=== PATIENT | female | born 1980 | race Caucasian/White ===

== ENCOUNTER 2016-12-31 18:05 | Emergency (ER) | payer MEDICAID ==
[~2016-12-31] VITALS: Ht 152.4 cm; Wt 72.5 kg
[2016-12-31 18:09] VITALS: Ht 152.4 cm; Wt 72.5 kg
[2016-12-31] MEDS ORDERED: ONDANSETRON 4 MG INJ IV STA (19:38)
[2016-12-31] MEDS ORDERED: morphine 4 MG/ML VIAL IV STA (19:38)
[2016-12-31] MEDS ORDERED: SOD CHLORIDE 0.9% 1,000 ML IV ONE (20:00)
[2016-12-31 20:04] LABS: ADD SCAN DIFF NO
[2016-12-31 20:07] LABS: BASOPHIL # 0.1 10^3/ul (0.0-0.1); EOSINOPHILS # 0.2 10^3/ul (0.0-0.5); EOSINOPHILS % 1.6 % (0.0-7.0); HEMATOCRIT 30.9 % (37.0-47.0); HEMOGLOBIN 9.4 g/dl (12.0-16.0); LYMPHOCYTES # 3.9 10^3/ul (0.8-2.9); LYMPHOCYTES % 31.2 % (15.0-51.0); MEAN CORPUSCULAR HGB CONC 30.4 g/dl (32.0-37.0); MEAN PLATELET VOLUME 11.7 fl (7.4-10.4); MONOCYTE # 0.8 10^3/ul (0.3-0.9); MONOCYTES % 6.2 % (0.0-11.0); NEUTROPHIL # 7.4 10^3/ul (1.6-7.5); NEUTROPHILS % 59.6 % (39.0-77.0); PLATELET COUNT 488 10^3/UL (140-415); RED BLOOD COUNT 4.48 10^6/ul (4.20-5.40); WHITE BLOOD COUNT 12.5 10^3/ul (4.8-10.8)
[2016-12-31 20:22] LABS: ADD UMIC YES; URINE BILIRUBIN (Dip) NEGATIVE (NEGATIVE); URINE BLOOD (Dip) 1+ (NEGATIVE); URINE COLOR LT. YELLOW (YELLOW); URINE GLUCOSE (Dip) NEGATIVE (NEGATIVE); URINE KETONES (Dip) NEGATIVE (NEGATIVE); URINE LEUKOCYTE ESTERASE (Dip) NEGATIVE (NEGATIVE); URINE NITRITE (Dip) NEGATIVE (NEGATIVE); URINE TOTAL PROTEIN (Dip) NEGATIVE (NEGATIVE); URINE UROBILINOGEN (Dip) 0.2 E.U./dL (0.1-1.0)
[2016-12-31 20:24] LABS: ALANINE AMINOTRANSFERASE 49 IU/L (13-69); ALBUMIN 4.5 g/dl (3.3-4.9); ALBUMIN/GLOBULIN RATIO 0.97; ALKALINE PHOSPHATASE 134 IU/L (42-121); ANION GAP 15 (8-16); ASPARTATE AMINO TRANSFERASE 57 IU/L (15-46); BILIRUBIN,INDIRECT 0.1 mg/dl (0-1.1); BILIRUBIN,TOTAL 0.1 mg/dl (0.2-1.3); BLOOD UREA NITROGEN 11 mg/dl (7-20); CALCIUM 9.5 mg/dl (8.4-10.2); CARBON DIOXIDE 25 mmol/L (21-31); CHLORIDE 104 mmol/L (97-110); CREATININE 0.65 mg/dl (0.44-1.00); GLUCOSE 144 mg/dl (70-220); POTASSIUM 3.9 mmol/L (3.5-5.1); SODIUM 140 mmol/L (135-144); TOTAL PROTEIN 9.1 g/dl (6.1-8.1)
[2016-12-31 20:33] LABS: SQUAMOUS EPITHELIAL CELL,UR FEW; URINE RBCS 0-2 /HPF (0)
[2016-12-31 20:36] LABS: TROPONIN-I < 0.012 ng/ml (0.00-0.12)
--- NOTE | 2016-12-31 21:19 | RADRPT ---
PROCEDURE: CT Abdomen and Pelvis without contrast. CLINICAL INDICATION: Abdominal pelvic pain. Low back pain. RLQ pain. TECHNIQUE: CT scan of the abdomen and pelvis without contrast was performed on a multidetector hig h-resolution CT scanner. The patient was scanned without intravenous contrast. Coronal and sagittal reformatted images were obtained from the axial source images. Images were reviewed on a high-resol [employer] PACS workstation. The total exam CTDI equals 13.04 mGy and the total exam DLP equals 770.35 mG y-cm. One or more of the following dose reduction techniques were used: - Automated exposure control. - Adjustment of the mA and/or kV according to patient size. - Use of iterative reconstruction technique. COMPARISON: None. FINDINGS: CT abdomen: The lung bases are remarkable for dense subsegmental atelectasis within the posterior lung bases emir aterally. The heart size is normal, without pericardial thickening or effusion. The liver is juan l in size and density without focal mass or intrahepatic biliary dilatation. The spleen is normal i n size and homogeneous in density. The stomach is significantly distended and filled with food and ingested material, but is otherwise grossly unremarkable. The pancreas as visualized is normal. Th e gallbladder and biliary tree are unremarkable and there is no evidence for biliary dilatation. Th e adrenal glands are symmetric and normal. The kidneys are symmetrically unremarkable as well. No renal calculus or obstructive uropathy or mass lesion is seen. The aorta is of normal caliber. There is no retroperitoneal lymphadenopathy. The caridad hepatis reg ion is clear. The bowel and mesentery, as visualized, are equally unremarkable. CT pelvis: The small bowel loops situated within the pelvis are unremarkable. No acute inflammatory process is seen in the right lower quadrant region or the right flank region. The pelvic organs are normal. T he pelvic sidewalls and inguinal regions are clear. The sigmoid colon and rectum are unremarkable. No mass or adenopathy is seen. No free fluid is present. No acute inflammation is identified at thi s time. The surrounding osseous structures are unremarkable. No osteolytic or osteoblastic lesion is detect ed. IMPRESSION: 1. Unremarkable CT scan of the abdomen and pelvis. 2. No mass, lymphadenopathy, or focal acute inflammatory process. 3. Dense subsegmental atelectasis within the lung bases bilaterally. 4. Distended stomach filled with food and ingested material. RPTAT: HMJB .Abrahan Friedman MD, MD Date Time Electronically viewed and signed by .Abrahan Friedman MD, MD on 12/31/2016 21:18 .B/
[2016-12-31] MEDS ORDERED: DICLOFENAC SODIUM 37.5 MG/ML VIAL IV STA (21:28)
[2016-12-31 22:17] VITALS: BP 110/56; PULSE 75; RESP 19
[2016-12-31] MEDS ORDERED: HYDR-906 PO (22:57)
[2016-12-31] MEDS ORDERED: NAPR-688 PO (22:57)
[2016-12-31] MEDS ORDERED: METH500T PO (22:57)
[2016-12-31] MEDS ORDERED: ONDA4TAB11 PO (23:01)
--- NOTE | 2016-12-31 23:10 | ERD ---
ER Documentation Chief Complaint Date/Time DATE: 12/31/16 TIME: 23:03 Chief Complaint MID BACK PAIN SINCE TODAY HPI This 36-year-old female presents emergency room with lumbar back pain is been on and off for several years but experiencing an exacerbation today. She denies any dysuria or fevers or chills . He demonstrates the pain wrapping around her lumbar back all the way to her right lower abdomen. She states that she has not taken anything at home for the pain, even though the pain is so bad that she sometimes passes out from gets nausea. She was told when she was in [facility] that she has a bone marrow problem causing anemia. She has been taking iron pills. She denies chest pain or shortness of breath. ROS All systems reviewed and are negative except as per history of present illness. Medications Home Meds Active Scripts Ondansetron (Zofran Odt) 4 Mg Tab.rapdis, 4 MG PO Q6, #10 Prov:SCOTT TREADEWLL DO 12/31/16 Hydrocodone/Acetaminophen ([place] 5-325 Tablet) 1 Each Tablet, 1 EACH PO Q6, #14 TAB Prov:SCOTT TREADWELL DO 12/31/16 Naproxen* (Naproxen*) 500 Mg Tablet, 500 MG PO BID Y for PAIN, #20 TAB Prov:SCOTT TREADWELL DO 12/31/16 Methocarbamol* (Robaxin*) 500 Mg Tab, 500 MG PO Q8 for PAIN, #20 TAB Prov:SCOTT TREADWELL DO 12/31/16 Allergies Allergies: Coded Allergies: No Known Allergy (Unverified , 12/31/16) PMhx/Soc Medical and Surgical Hx: pt denies Medical Hx Hx Alcohol Use: Yes Hx Substance Use: No Hx Tobacco Use: No Smoking Status: Never smoker Physical Exam Vitals Vital Signs Date Time Temp Pulse Resp B/P Pulse Ox O2 Delivery O2 Flow Rate FiO2 12/31/16 22:17 75 19 110/56 97 Nasal Cannula 3.0 12/31/16 20:27 82 18 119/62 99 Nasal Cannula 3.0 12/31/16 18:09 98.5 102 22 158/86 99 Physical Exam Const: [] No acute distress, laying calmly in bed Head: Atraumatic Eyes: Normal Conjunctiva ENT: Normal External Ears, Nose and Mouth. Neck: Full range of motion..~ No meningismus. Resp: Clear to auscultation bilaterally Cardio: Regular rate and rhythm, no murmurs Abd: Soft, unable to elicit abdominal tenderness, non distended. Normal bowel sounds Skin: No petechiae or rashes Back: No midline or flank tenderness Ext: No cyanosis, or edema Neur: Awake and alert Psych: Normal Mood and Affect Result Diagram: 12/31/16195412/31/161954 Results 24 hrs Laboratory Tests Test 12/31/16 19:55 12/31/16 20:05 White Blood Count 12.510^3/ul Red Blood Count 4.4810^6/ul Hemoglobin 9.4g/dl Hematocrit 30.9% Mean Corpuscular Volume 69.0fl Mean Corpuscular Hemoglobin 21.0pg Mean Corpuscular Hemoglobin Concent 30.4g/dl Red Cell Distribution Width 16.0% Platelet Count 38486^3/UL Mean Platelet Volume 11.7fl Neutrophils % 59.6% Lymphocytes % 31.2% Monocytes % 6.2% Eosinophils % 1.6% Basophils % 1.0% Nucleated Red Blood Cells % 0.0/100WBC Neutrophils # 7.410^3/ul Lymphocytes # 3.910^3/ul Monocytes # 0.810^3/ul Eosinophils # 0.210^3/ul Basophils # 0.110^3/ul Nucleated Red Blood Cells # 0.010^3/ul Sodium Level 140mmol/L Potassium Level 3.9mmol/L Chloride Level 104mmol/L Carbon Dioxide Level 25mmol/L Anion Gap 15 Blood Urea Nitrogen 11mg/dl Creatinine 0.65mg/dl Glucose Level 144mg/dl Calcium Level 9.5mg/dl Total Bilirubin 0.1mg/dl Direct Bilirubin 0.00mg/dl Indirect Bilirubin 0.1mg/dl Aspartate Amino Transf (AST/SGOT) 57IU/L Alanine Aminotransferase (ALT/SGPT) 49IU/L Alkaline Phosphatase 134IU/L Troponin I < 0.012ng/ml Total Protein 9.1g/dl Albumin 4.5g/dl Globulin 4.60g/dl Albumin/Globulin Ratio 0.97 Lipase 235U/L Urine Color LT. YELLOW Urine Clarity CLEAR Urine pH 6.5 Urine Specific [place] 1.010 Urine Ketones NEGATIVE Urine Nitrite NEGATIVE Urine Bilirubin NEGATIVE Urine Urobilinogen 0.2 E.U./dL Urine Leukocyte Esterase NEGATIVE Urine Microscopic RBC 0-2/HPF Urine Microscopic WBC 0-2/HPF Urine Squamous Epithelial Cells FEW Urine Hemoglobin 1+ Urine Glucose NEGATIVE% Urine Total Protein NEGATIVE Current Medications Medications (Trade) Dose Ordered Sig/Morteza Route PRN Reason Start Time Stop Time Status Last Admin Dose Admin Ondansetron HCl 4 mg 4 mg ONCE STAT IV 12/31/16 19:38 12/31/16 19:40 DC 12/31/16 20:13 Sodium Chloride (NS) 1,000 ml @ 1,000 mls/hr Q1H ONCE IV 12/31/16 20:00 12/31/16 20:59 DC 12/31/16 20:13 Morphine Sulfate (morphine) 4 mg ONCE STAT IV 12/31/16 19:38 12/31/16 19:40 DC 12/31/16 20:13 Diclofenac Sodium (Dyloject) 37.5 mg ONCE STAT IV 12/31/16 21:28 12/31/16 21:30 DC 12/31/16 21:38 Procedures/MDM Acute on chronic lumbar back pain with muscle spasm. Patient has no signs of urinary tract infection or renal dysfunction. Does have a mildly elevated white blood cell count increased platelets with no obvious source of infection and thorough workup. Cardiac workup was also performed because of reports of syncope from increased pain. It is the patient has not tried to take anything for pain at home however the morphine that she was given in the emergency room in addition to the IV diclofenac did relieve her pain significantly and she was able to move without pain. She is also given IV fluid. CT shows no impingement of her nerve roots in her spine. I have low suspicion for spinal abscess currently as the patient has no fevers chills and no current CT evidence. She also does have iron deficiency anemia that she had stated. Given her primary care follow-up in the next 2-3 days as well as instructions to see in orthospine for her chronic back pain. Also instructed to return the emergency room if pain cannot be controlled at home with the medications I am giving her. I am discharging with Zofran, [place], naproxen, Robaxin. EKG interpretation: Normal sinus rhythm rate of 94, left axis deviation, no ST or T-wave changes concerning for acute ischemia CT abdomen pelvis interpretation: No acute process. Distended stomach without evidence of constipation obstruction or free air, no abnormalities of the spine visualized. No obvious stenosis. No abnormal fat stranding to indicate infection peer Departure Diagnosis: Primary Impression: Lumbar muscle pain Additional Impressions: Chronic back pain Abdominal pain Condition: Stable Patient Instructions: Abdominal Pain, Unknown Cause, (Female), Back Spasm, No Trauma Referrals: [facility] YOU HAVE RECEIVED A MEDICAL SCREENING EXAM AND THE RESULTS INDICATE THAT YOU DO NOT HAVE A CONDITION THAT REQUIRES URGENT TREATMENT IN THE EMERGENCY DEPARTMENT. FURTHER EVALUATION AND TREATMENT OF YOUR CONDITION CAN WAIT UNTIL YOU ARE SEEN IN YOUR DOCTORS OFFICE WITHIN THE NEXT 1-2 DAYS. IT IS YOUR RESPONSIBILITY TO MAKE AN APPOINTMENT FOR FOLOW-UP CARE. IF YOU HAVE A PRIMARY DOCTOR --you should call your primary doctor and schedule an appointment IF YOU DO NOT HAVE A PRIMARY DOCTOR YOU CAN CALL OUR PHYSICIAN REFERRAL HOTLINE AT IF YOU CAN NOT AFFORD TO SEE A PHYSICIAN YOU CAN CHOSE FROM THE FOLLOWING [facility] [address] [facility] [address] [facility] [place] [address] [facility] [address] [facility] [address] [facility] [facility]. [address] Additional Instructions: Llame al doctor MAANA y jess gisselle RASHAAD PARA DENTRO DE 1-2 WELCH.Dgale a la secretaria que nosotros le instruimos hacer esta rashaad. Consigue un referral para un doctor de ORTHO SPINE. Avise o llame si loza condicin se empeora antes de la rashaad. Regresa aqui si peor o no mejor. SCOTT TREADWELL DO December 31, 2016 23:10
== END 2016-12-31 23:27 | disposition home or self-care (01) ==
LOC: E/R 18:05
DX: M54.5 Low back pain (principal); R10.9 Unspecified abdominal pain; R11.0 Nausea
CPT/HCPCS: 36415; 74176; 80053; 81001; 83690; 84484; 85025; 93005; 96374; 96375; J2270; J2405; J7030; Z7502; Z7610; 81003

== ENCOUNTER 2017-03-01 10:51 | Emergency (ER) | payer MEDICAID ==
[~2017-03-01] VITALS: Ht 149.9 cm; Wt 72.5 kg
[~2017-03-01 10:51] MED LIST: HYDR-906 PO; METH500T PO; NAPR-688 PO; ONDA4TAB11 PO
[2017-03-01 10:58] VITALS: Ht 149.9 cm; Wt 72.5 kg
[2017-03-01] MEDS ORDERED: KETOROLAC 30 MG INJ IV STA (11:13)
[2017-03-01] MEDS ORDERED: ONDANSETRON 4 MG INJ IV STA (11:13)
[2017-03-01 11:48] LABS: ADD SCAN DIFF NO
[2017-03-01 11:55] LABS: ADD UMIC YES; UR ASCORBIC ACID NEGATIVE (NEGATIVE); UR BILIRUBIN (Dip) NEGATIVE (NEGATIVE); UR BLOOD (Dip) 1+ mg/dL (NEGATIVE); UR CLARITY SLIGHTLY CLOUDY (CLEAR); UR COLOR YELLOW (YELLOW); UR GLUCOSE (Dip) NEGATIVE (NEGATIVE); UR KETONES (Dip) NEGATIVE (NEGATIVE); UR LEUKOCYTE ESTERASE (Dip) 2+ Leu/ul (NEGATIVE); UR NITRITE (Dip) NEGATIVE (NEGATIVE); UR RBC 2 /HPF (0-5); UR SPECIFIC GRAVITY (Dip) 1.016 (1.003-1.030); UR SQUAMOUS EPITHELIAL CELL FEW /HPF (FEW); UR TOTAL PROTEIN (Dip) NEGATIVE (NEGATIVE); UR UROBILINOGEN (Dip) NEGATIVE (NEGATIVE)
[2017-03-01 12:06] LABS: ALBUMIN 4.6 g/dl (3.3-4.9); ALBUMIN/GLOBULIN RATIO 1.31; BILIRUBIN,INDIRECT 0.1 mg/dl (0-1.1); BILIRUBIN,TOTAL 0.1 mg/dl (0.2-1.3); CREATININE 0.65 mg/dl (0.44-1.00); POTASSIUM 4.2 mmol/L (3.5-5.1); TOTAL PROTEIN 8.1 g/dl (6.1-8.1)
--- NOTE | 2017-03-01 12:17 | RADRPT ---
PROCEDURE: US Abdomen (right upper quadrant). CLINICAL INDICATION: Right upper quadrant abdomen pain. TECHNIQUE: Multiple real-time longitudinal and transverse images of the right upper quadrant of th e abdomen were acquired utilizing a curved array transducer. Images were reviewed on a high-[employer]oluti on PACS workstation. COMPARISON: None FINDINGS: The liver is normal in size and normal in echogenicity. There is no focal hepatic lesion. Color Doppler and pulsed Doppler sonography demonstrate normal a ntegrade flow in the portal vein. The gallbladder is normal with no stones or wall thickening. There is no pericholecystic fluid mireille ection. The bile ducts are normal with the common bile duct measuring 2.6 mm in diameter. The visualized portions of the pancreas are unremarkable with obscuration of the tail of the pancrea s. No free fluid is present. The right kidney measures 10.6 x 5.7 x 6.0 cm. There is normal echogenicity of the right kidney. There is no perinephric fluid collection. No hydronephrosis, mass, or calculus is seen. IMPRESSION: 1. Unremarkable right upper quadrant abdomen ultrasound. RPTAT: QQ .Ariel Morales MD, Date Time Electronically viewed and signed by .Ariel Morales MD, on 03/01/2017 12:17 .R/
[2017-03-01] MEDS ORDERED: CEFTRIAXONE 1 GM/50 ML (PMX) 50 ML IVPB ONE (12:30)
[2017-03-01 12:49] LABS: BASOPHIL # 0.1 10^3/ul (0.0-0.1); EOSINOPHILS # 0.2 10^3/ul (0.0-0.5); EOSINOPHILS % 2.7 % (0.0-7.0); HEMATOCRIT 27.9 % (37.0-47.0); HEMOGLOBIN 8.3 g/dl (12.0-16.0); LYMPHOCYTES # 2.9 10^3/ul (0.8-2.9); MEAN CORPUSCULAR HEMOGLOBIN 20.3 pg (29.0-33.0); MEAN CORPUSCULAR HGB CONC 29.7 g/dl (32.0-37.0); MEAN CORPUSCULAR VOLUME 68.2 fl (82.0-101.0); MEAN PLATELET VOLUME 11.1 fl (7.4-10.4); MONOCYTE # 0.5 10^3/ul (0.3-0.9); MONOCYTES % 6.4 % (0.0-11.0); NEUTROPHIL # 4.5 10^3/ul (1.6-7.5); NEUTROPHILS % 54.5 % (39.0-77.0); PLATELET COUNT 415 10^3/UL (140-415); RED BLOOD COUNT 4.09 10^6/ul (4.20-5.40); RED CELL DISTRIBUTION WIDTH 17.9 % (11.5-14.5); WHITE BLOOD COUNT 8.2 10^3/ul (4.8-10.8)
[2017-03-01] MEDS ORDERED: IBUP-1542 PO (13:02)
[2017-03-01] MEDS ORDERED: TRAM50TA2 PO (13:02)
[2017-03-01] MEDS ORDERED: CIPR500T4 PO (13:02)
[2017-03-01] MEDS ORDERED: FER325 PO (13:02)
--- NOTE | 2017-03-01 13:17 | ERD ---
ER Documentation Chief Complaint Date/Time DATE: 03/01/17 TIME: 13:13 Chief Complaint RIGHT FLANK PAIN HPI Is a right flank pain for last 3 days. She has a history of trauma. She was seen here May for similar pain and she describes as a same patient has any fevers, vomiting, urinary complaints. She denies any fall or inciting events. ROS All systems reviewed and are negative except as per history of present illness. Medications Home Meds Active Scripts Ibuprofen* (Motrin*) 600 Mg Tab, 600 MG PO Q6, #20 TAB Prov:ANA MARÍA GALEANO MD 03/01/17 Ciprofloxacin Hcl* (Ciprofloxacin Hcl*) 500 Mg Tablet, 500 MG PO BID for 7 Days , TAB Prov:ANA MARÍA GALEANO MD 03/01/17 Tramadol HCl (Tramadol HCl) 50 Mg Tablet, 50 MG PO Q4 Y for PAIN, #20 TAB Prov:ANA MARÍA GALEANO MD 03/01/17 Ferrous Sulfate* (Ferrous Sulfate*) 325 Mg Tabec, 325 MG PO TID, #90 TAB Prov:ANA MARÍA GALEANO MD 03/01/17 Ondansetron (Zofran Odt) 4 Mg Tab.rapdis, 4 MG PO Q6, #10 Prov:SCOTT TREADWELL DO 12/31/16 Hydrocodone/Acetaminophen ([place] 5-325 Tablet) 1 Each Tablet, 1 EACH PO Q6, #14 TAB Prov:SCOTT TREADWELL DO 12/31/16 Naproxen* (Naproxen*) 500 Mg Tablet, 500 MG PO BID Y for PAIN, #20 TAB Prov:SCOTT TREADWELL DO 12/31/16 Methocarbamol* (Robaxin*) 500 Mg Tab, 500 MG PO Q8 for PAIN, #20 TAB Prov:SCOTT TREADWELL DO 12/31/16 Allergies Allergies: Coded Allergies: No Known Allergy (Unverified , 12/31/16) PMhx/Soc Hx Alcohol Use: Yes Hx Substance Use: No Hx Tobacco Use: No Smoking Status: Never smoker Physical Exam Vitals Vital Signs Date Time Temp Pulse Resp B/P Pulse Ox O2 Delivery O2 Flow Rate FiO2 03/01/17 10:58 98.4 77 18 121/58 98 Physical Exam Const: [] Alert, [id number]. Head: Atraumatic Eyes: Normal Conjunctiva ENT: Normal External Ears, Nose and Mouth. Neck: Full range of motion..~ No meningismus. Resp: Clear to auscultation bilaterally Cardio: Regular rate and rhythm, no murmurs Abd: Soft, possibly minimal right upper quadrant tenderness radiating from the right flank. non distended. Normal bowel sounds. No tenderness at McBurney 's point no rebound Skin: No petechiae or rashes Back: No midline tenderness. There is tenderness in the right flank. Ext: No cyanosis, or edema Neur: Awake and alert Psych: Normal Mood and Affect Result Diagram: 03/01/17 1135 03/01/17 1135 Results 24 hrs Laboratory Tests Test 03/01/17 11:35 03/01/17 11:36 White Blood Count 8.210^3/ul Red Blood Count 4.0910^6/ul Hemoglobin 8.3g/dl Hematocrit 27.9% Mean Corpuscular Volume 68.2fl Mean Corpuscular Hemoglobin 20.3pg Mean Corpuscular Hemoglobin Concent 29.7g/dl Red Cell Distribution Width 17.9% Platelet Count 69205^3/UL Mean Platelet Volume 11.1fl Neutrophils % 54.5% Lymphocytes % 35.0% Monocytes % 6.4% Eosinophils % 2.7% Basophils % 1.0% Nucleated Red Blood Cells % 0.0/100WBC Neutrophils # 4.510^3/ul Lymphocytes # 2.910^3/ul Monocytes # 0.510^3/ul Eosinophils # 0.210^3/ul Basophils # 0.110^3/ul Nucleated Red Blood Cells # 0.010^3/ul Sodium Level 143mmol/L Potassium Level 4.2mmol/L Chloride Level 103mmol/L Carbon Dioxide Level 24mmol/L Anion Gap 20 Blood Urea Nitrogen 8mg/dl Creatinine 0.65mg/dl Glucose Level 102mg/dl Calcium Level 9.0mg/dl Total Bilirubin 0.1mg/dl Direct Bilirubin 0.00mg/dl Indirect Bilirubin 0.1mg/dl Aspartate Amino Transf (AST/SGOT) 63IU/L Alanine Aminotransferase (ALT/SGPT) 64IU/L Alkaline Phosphatase 149IU/L Total Protein 8.1g/dl Albumin 4.6g/dl Globulin 3.50g/dl Albumin/Globulin Ratio 1.31 Lipase 320U/L Urine Color YELLOW Urine Clarity SLIGHTLY CLOUDY Urine pH 5.0 Urine Specific [place] 1.016 Urine Ketones NEGATIVEmg/dL Urine Nitrite NEGATIVEmg/dL Urine Bilirubin NEGATIVEmg/dL Urine Urobilinogen NEGATIVEmg/dL Urine Leukocyte Esterase 2+Saad/ul Urine Microscopic RBC 2/HPF Urine Microscopic WBC 4/HPF Urine Squamous Epithelial Cells FEW/HPF Urine Hemoglobin 1+mg/dL Urine Glucose NEGATIVEmg/dL Urine Total Protein NEGATIVEmg/dl Current Medications Medications (Trade) Dose Ordered Sig/Morteza Route PRN Reason Start Time Stop Time Status Last Admin Dose Admin Ondansetron HCl (Zofran Inj) 4 mg ONCE STAT IV 03/01/17 11:13 03/01/17 11:15 DC 03/01/17 12:13 Ketorolac Tromethamine 30 mg 30 mg ONCE STAT IV 03/01/17 11:13 03/01/17 11:15 DC 03/01/17 12:16 Ceftriaxone Sodium (Rocephin) 50 ml @ 100 mls/hr ONCE ONCE IVPB 03/01/17 12:30 03/01/17 12:59 DC 03/01/17 12:49 Procedures/MDM WBC is normal. Shows mild microcytic anemia. CMP shows no acute abnormalities. Lipase slightly elevated urine shows hemoglobin and leukocytes esterase with few WBCs. HCG is negative. Patient was given Toradol 30 mg IV and Zofran form of grams IV. Patient was given Rocephin 1 g IV after review of urine. Patient had improved pain after observation treatment. Patient presents with right flank pain of uncertain etiology for last 3 days. She has microcytic anemia as well. She does describe heavy menstrual periods. We will treat with tramadol, Cipro and ibuprofen as well as ferrous sulfate and primary care follow-up. Patient's pain may be musculoskeletal but we will treat for UTI. Patient does not have leukocytosis or fever or additional symptoms to suggest pyelonephritis. Patient should return for fevers, vomiting, worsening pain, new worsening symptoms. There is no evidence of appendicitis, aortic disease, acute abdomen, additional causes of presenting complaints. Departure Diagnosis: Primary Impression: UTI (urinary tract infection) Urinary tract infection type: acute cystitis Hematuria presence: without hematuria Qualified Code: N30.00 - Acute cystitis without hematuria Additional Impression: Flank pain Condition: Stable Patient Instructions: Understanding Urinary Tract Infections (UTIs), Anemia, Iron Deficiency (Adult), Flank Pain, Uncertain Cause Additional Instructions: ULTRSONIDO NORMAL. ORIMNA TIENE INFECCION.AMGY MUCHO AGUA. Cheque otro vez con loza doctor primario en el proximo shaikh or regresa para mas o nueva simptomas. ANA MARÍA GALEANO MD Mar 01, 2017 13:17
== END 2017-03-01 13:17 | disposition home or self-care (01) ==
LOC: FTE 10:51
DX: N30.00 Acute cystitis without hematuria (principal); R10.11 Right upper quadrant pain
CPT/HCPCS: 36415; 76705; 80053; 81001; 83690; 85025; 96374; 96375; J0696; J1885; J2405; Z7502

== ENCOUNTER 2017-03-22 14:00 | Emergency (ER) | payer MEDICAID ==
[~2017-03-22] VITALS: Ht 157.5 cm; Wt 72.5 kg
[~2017-03-22 14:00] MED LIST changes: +CIPR500T4 PO; +FER325 PO; +IBUP-1542 PO; +TRAM50TA2 PO
[2017-03-22 14:02] VITALS: Ht 157.5 cm; Wt 72.5 kg
[2017-03-22] MEDS ORDERED: HYDROmorphONE 1 MG/ML SYG IV STA (14:20)
[2017-03-22] MEDS ORDERED: ONDANSETRON 4 MG INJ IV STA (14:20)
[2017-03-22] MEDS ORDERED: SOD CHLORIDE 0.9% 1,000 ML IV STA (14:20)
[2017-03-22 14:53] LABS: BASOPHIL # 0.1 10^3/ul (0.0-0.1); EOSINOPHILS # 0.2 10^3/ul (0.0-0.5); EOSINOPHILS % 1.9 % (0.0-7.0); HEMATOCRIT 30.9 % (37.0-47.0); HEMOGLOBIN 9.4 g/dl (12.0-16.0); LYMPHOCYTES # 3.1 10^3/ul (0.8-2.9); LYMPHOCYTES % 32.2 % (15.0-51.0); MEAN CORPUSCULAR HEMOGLOBIN 20.8 pg (29.0-33.0); MEAN CORPUSCULAR HGB CONC 30.4 g/dl (32.0-37.0); MEAN CORPUSCULAR VOLUME 68.2 fl (82.0-101.0); MEAN PLATELET VOLUME 10.9 fl (7.4-10.4); MONOCYTE # 0.6 10^3/ul (0.3-0.9); MONOCYTES % 6.3 % (0.0-11.0); NEUTROPHIL # 5.6 10^3/ul (1.6-7.5); NEUTROPHILS % 58.4 % (39.0-77.0); PLATELET COUNT 475 10^3/UL (140-415); RED BLOOD COUNT 4.53 10^6/ul (4.20-5.40); RED CELL DISTRIBUTION WIDTH 20.4 % (11.5-14.5); WHITE BLOOD COUNT 9.6 10^3/ul (4.8-10.8)
[2017-03-22 15:18] LABS: ALBUMIN 4.2 g/dl (3.3-4.9); ALBUMIN/GLOBULIN RATIO 0.93; BILIRUBIN,INDIRECT 0.1 mg/dl (0-1.1); BILIRUBIN,TOTAL 0.1 mg/dl (0.2-1.3); CALCIUM 9.2 mg/dl (8.4-10.2); CREATININE 0.57 mg/dl (0.44-1.00); POTASSIUM 3.7 mmol/L (3.5-5.1); TOTAL PROTEIN 8.7 g/dl (6.1-8.1)
--- NOTE | 2017-03-22 15:35 | RADRPT ---
PROCEDURE: US Abdomen (right upper quadrant). CLINICAL INDICATION: Right upper quadrant pain TECHNIQUE: Multiple real-time longitudinal and transverse images of the right upper quadrant of th e abdomen were acquired utilizing a curved array transducer. Images were reviewed on a high-resoluti on PACS workstation. COMPARISON: None FINDINGS: The liver is normal in size and echogenicity without focal mass or intrahepatic biliary dilatation. There is normal hepatopedal flow within the main portal vein. The gallbladder is normal. There is no pericholecystic fluid or gallbladder wall thickening or gallstones. No intra or extrahepatic emir iary dilatation is seen. The common bile duct measures 4 mm in maximal dimension. The pancreas was obscured by overlying bowel gas and could not be adequately evaluated. The right kidney measures 10.8 cm in length. There is normal cortical echogenicity within the right kidney. There is no right perinephric fluid collection. No hydronephrosis, mass, or shadowing clovis culus is seen on the right. IMPRESSION: Unremarkable right upper quadrant ultrasound. RPTAT: QQ Physician Pippa Date Time Electronically viewed and signed by Physician Pippa on 03/22/2017 15:35 GIANLUCA/
[2017-03-22] MEDS ORDERED: DICY10CA60 PO (16:13)
[2017-03-22] MEDS ORDERED: RANI150T9 PO (16:13)
[2017-03-22] MEDS ORDERED: HYDR-902 PO (16:13)
--- NOTE | 2017-03-22 16:15 | ERD ---
ER Documentation Chief Complaint Date/Time DATE: 03/22/17 TIME: 16:14 Chief Complaint AP SINCE LAST NIGHT HPI This is a 36-year-old female complaining of pain in the right upper quadrant radiating to the right back and right shoulder. Patient describes the pain is crampy. No no vomiting but does have nausea. No diarrhea. The pain is somewhat worse after eating. No fever chest pain shortness of breath ROS All systems reviewed and are negative except as per history of present illness. Medications Home Meds Active Scripts Ranitidine Hcl* (Zantac*) 150 Mg Tablet, 150 MG PO BID Y for EPIGASTRIC PAIN, # 30 TAB Prov:ISAIAS JEAN BAPTISTE DO 03/22/17 Dicyclomine Hcl* (Bentyl*) 10 Mg Capsule, 20 MG PO QID, #30 CAP Prov:ISAIAS JEAN BAPTISTE ASerene DO 03/22/17 Hydrocodone/Acetaminophen ([place] 10-325 Tablet) 1 Each Tablet, 1 TAB PO Q6H Y for PAIN, #20 TAB Prov:ISAIAS JEAN BAPTISTE DO 03/22/17 Ibuprofen* (Motrin*) 600 Mg Tab, 600 MG PO Q6, #20 TAB Prov:ANA MARÍA GALEANO MD 03/01/17 Ciprofloxacin Hcl* (Ciprofloxacin Hcl*) 500 Mg Tablet, 500 MG PO BID for 7 Days , TAB Prov:ANA MARÍA GALEANO MD 03/01/17 Tramadol HCl (Tramadol HCl) 50 Mg Tablet, 50 MG PO Q4 Y for PAIN, #20 TAB Prov:ANA MARÍA GALEANO MD 03/01/17 Ferrous Sulfate* (Ferrous Sulfate*) 325 Mg Tabec, 325 MG PO TID, #90 TAB Prov:ANA MARÍA GALEANO MD 03/01/17 Ondansetron (Zofran Odt) 4 Mg Tab.rapdis, 4 MG PO Q6, #10 Prov:SCOTT TREADWELL DO 12/31/16 Hydrocodone/Acetaminophen ([place] 5-325 Tablet) 1 Each Tablet, 1 EACH PO Q6, #14 TAB Prov:SCOTT TREADWELL DO 12/31/16 Naproxen* (Naproxen*) 500 Mg Tablet, 500 MG PO BID Y for PAIN, #20 TAB Prov:SCOTT TREADWELL DO 12/31/16 Methocarbamol* (Robaxin*) 500 Mg Tab, 500 MG PO Q8 for PAIN, #20 TAB Prov:SCOTT TREADWELL DO 12/31/16 Allergies Allergies: Coded Allergies: No Known Allergy (Unverified , 03/22/17) PMhx/Soc Hx Respiratory Disorders: No Hx Cardiac Disorders: No Hx Psychiatric Problems: No Hx Miscellaneous Medical Probl: Yes (cholecystitis) Hx Alcohol Use: Yes Hx Substance Use: No Hx Tobacco Use: No Smoking Status: Never smoker FmHx Family History: No coronary disease Physical Exam Vitals Vital Signs Date Time Temp Pulse Resp B/P Pulse Ox O2 Delivery O2 Flow Rate FiO2 03/22/17 14:02 99.1 84 20 126/81 99 Physical Exam Const: Well-developed, well-nourished Head: Atraumatic, normocephalic Eyes: Normal Conjunctiva, PERRLA, EOMI, normal sclera, no nystagmus ENT: Normal External Ears, Nose and Mouth, moist mucus membranes. Neck: Full range of motion. No meningismus, no lymphadenopathy. Resp: Clear to auscultation bilaterally, no wheezing, rhonchi, rales Cardio: Regular rate and rhythm, no murmurs, S1 S2 present Abd: Soft, mild to moderate pain in the right upper quadrant, non distended. Normal bowel sounds, no guarding or rebound, no pulsitile abdominal masses or bruits Skin: No petechiae or rashes, no ecchymosis , no maculopapular rash Back: No midline or flank tenderness Ext: No cyanosis, or edema, FROM x 4, normal inspection, neurovascularly intact x 4 Neur: Awake and alert, STR 5/5 x 4, sensation intact x 4, no focal findings, cerebellum intact Psych: Normal Mood and Affect Result Diagram: 03/22/17 1430 03/22/17 1430 Results 24 hrs Laboratory Tests Test 03/22/17 14:30 White Blood Count 9.610^3/ul Red Blood Count 4.5310^6/ul Hemoglobin 9.4g/dl Hematocrit 30.9% Mean Corpuscular Volume 68.2fl Mean Corpuscular Hemoglobin 20.8pg Mean Corpuscular Hemoglobin Concent 30.4g/dl Red Cell Distribution Width 20.4% Platelet Count 08859^3/UL Mean Platelet Volume 10.9fl Neutrophils % 58.4% Lymphocytes % 32.2% Monocytes % 6.3% Eosinophils % 1.9% Basophils % 1.0% Nucleated Red Blood Cells % 0.0/100WBC Neutrophils # 5.610^3/ul Lymphocytes # 3.110^3/ul Monocytes # 0.610^3/ul Eosinophils # 0.210^3/ul Basophils # 0.110^3/ul Nucleated Red Blood Cells # 0.010^3/ul Sodium Level 145mmol/L Potassium Level 3.7mmol/L Chloride Level 104mmol/L Carbon Dioxide Level 24mmol/L Anion Gap 21 Blood Urea Nitrogen 7mg/dl Creatinine 0.57mg/dl Glucose Level 126mg/dl Calcium Level 9.2mg/dl Total Bilirubin 0.1mg/dl Direct Bilirubin 0.00mg/dl Indirect Bilirubin 0.1mg/dl Aspartate Amino Transf (AST/SGOT) 81IU/L Alanine Aminotransferase (ALT/SGPT) 76IU/L Alkaline Phosphatase 139IU/L Total Protein 8.7g/dl Albumin 4.2g/dl Globulin 4.50g/dl Albumin/Globulin Ratio 0.93 Lipase 266U/L Current Medications Medications (Trade) Dose Ordered Sig/Morteza Route PRN Reason Start Time Stop Time Status Last Admin Dose Admin Sodium Chloride (NS) 1,000 ml @ 1,000 mls/hr Q1H STAT IV 03/22/17 14:20 03/22/17 15:19 DC 03/22/17 14:35 Hydromorphone HCl (Dilaudid) 1 mg ONCE STAT IV 03/22/17 14:20 03/22/17 14:22 DC 03/22/17 14:36 Ondansetron HCl (Zofran Inj) 4 mg ONCE STAT IV 03/22/17 14:20 03/22/17 14:22 DC 03/22/17 14:35 Procedures/MDM PROCEDURE: US Abdomen (right upper quadrant). CLINICAL INDICATION: Right upper quadrant pain TECHNIQUE: Multiple real-time longitudinal and transverse images of the right upper quadrant of the abdomen were acquired utilizing a curved array transducer. Images were reviewed on a high-resolution PACS workstation. COMPARISON: None FINDINGS: The liver is normal in size and echogenicity without focal mass or intrahepatic biliary dilatation. There is normal hepatopedal flow within the main portal vein. The gallbladder is normal. There is no pericholecystic fluid or gallbladder wall thickening or gallstones. No intra or extrahepatic biliary dilatation is seen. The common bile duct measures 4 mm in maximal dimension. The pancreas was obscured by overlying bowel gas and could not be adequately evaluated. The right kidney measures 10.8 cm in length. There is normal cortical echogenicity within the right kidney. There is no right perinephric fluid collection. No hydronephrosis, mass, or shadowing calculus is seen on the right. IMPRESSION: Unremarkable right upper quadrant ultrasound. RPTAT: QQ Physician Pippa Date Time Electronically viewed and signed by Physician Pippa on 03/22/2017 15: 35 RC/ CC: ISAIAS JEAN BAPTISTE DO No evidence of gallstones. The patient does have some elevated liver function tests patient may have had a gallstone has passed. There may be just biliary colic with a dysfunctional gallbladder. Also could have gastritis or peptic ulcer disease. We will treat with [place], low-fat diet, Bentyl, Zantac Departure Diagnosis: Primary Impression: Abdominal pain Abdominal location: right upper quadrant Qualified Code: R10.11 - Right upper quadrant abdominal pain Condition: Stable Patient Instructions: Abdominal Pain Referrals: NO PRIMARY,CARE PHYSICIAN (PCP) ISAIAS JEAN BAPTISTE DO Mar 22, 2017 16:15
== END 2017-03-22 16:50 | disposition home or self-care (01) ==
LOC: FTE 14:00
DX: R10.11 Right upper quadrant pain (principal); R11.0 Nausea
CPT/HCPCS: 36415; 76705; 80053; 83690; 85025; 96374; 96375; J1170; J2405; J7030; Z7502

== ENCOUNTER 2017-04-19 21:06 | Emergency (ER) | payer MEDICAID ==
[~2017-04-19] VITALS: Ht 162.6 cm; Wt 73.5 kg
[~2017-04-19 21:06] MED LIST changes: +DICY10CA60 PO; +HYDR-902 PO; +RANI150T9 PO
[2017-04-19 21:11] VITALS: Ht 162.6 cm; Wt 73.5 kg
[2017-04-19] MEDS ORDERED: ONDANSETRON 4 MG INJ IV STA (22:09)
[2017-04-19] MEDS ORDERED: morphine 4 MG/ML VIAL IV STA (22:09)
[2017-04-19] MEDS ORDERED: ACETAMINOPHEN 500 MG TAB PO STA (22:09)
[2017-04-19] MEDS ORDERED: SOD CHLORIDE 0.9% 1,000 ML IV STA (22:09)
--- NOTE | 2017-04-19 22:59 | ERD ---
ER Documentation Chief Complaint Date/Time DATE: 04/19/17 TIME: 22:55 Chief Complaint fever and vomiting for 2 days HPI This a 36-year-old female presents emergency department today complaining of abdominal pain for the past couple of days. States she has nausea and vomiting. States the pain radiates around her back. States she also has a fever but has not taken any medication for fever. States she is taking omeprazole, Colace and iron. States she is not taking any Tylenol or Motrin for fever. States she also has some diarrhea. Denies any dysuria. ROS All systems reviewed and are negative except as per history of present illness. Medications Home Meds Active Scripts Ibuprofen* (Motrin*) 600 Mg Tab, 600 MG PO Q6, #30 TAB Prov:SVETLANA VIZCAINOC 04/20/17 Acetaminophen* (Tylophen*) 500 Mg Capsule, 1 CAP PO Q6H Y for PAIN AND OR ELEVATED TEMP, #30 CAP Prov:SVETLANA VIZCAINOC 04/20/17 Hydrocodone/Acetaminophen ([place] 5-325 Tablet) 1 Each Tablet, 1 TAB PO Q6H Y for PAIN, #15 TAB Prov:SVETLANA VIZCAINOC 04/20/17 Ondansetron Hcl* (Zofran*) 4 Mg Tablet, 4 MG PO Q6H for NAUSEA AND/OR VOMITING, #30 TAB Prov:SVETLANA VIZCAINOC 04/20/17 Metronidazole* (Flagyl*) 500 Mg Tablet, 500 MG PO TID for 7 Days, TAB Prov:SVETLANA VIZCAINOC 04/20/17 Ciprofloxacin Hcl* (Ciprofloxacin Hcl*) 500 Mg Tablet, 500 MG PO BID for 7 Days , TAB Prov:SVETLANA VIZCAINO-C 04/20/17 Ranitidine Hcl* (Zantac*) 150 Mg Tablet, 150 MG PO BID Y for EPIGASTRIC PAIN, # 30 TAB Prov:ISAIAS JEAN BAPTISTE DO 03/22/17 Dicyclomine Hcl* (Bentyl*) 10 Mg Capsule, 20 MG PO QID, #30 CAP Prov:ABAD JEAN BAPTISTESTERICS ASerene DO 03/22/17 Hydrocodone/Acetaminophen ([place] 10-325 Tablet) 1 Each Tablet, 1 TAB PO Q6H Y for PAIN, #20 TAB Prov:ISAIAS JEAN BAPTISTE DO 03/22/17 Ibuprofen* (Motrin*) 600 Mg Tab, 600 MG PO Q6, #20 TAB Prov:NAA MARÍA GALEANO MD 03/01/17 Ciprofloxacin Hcl* (Ciprofloxacin Hcl*) 500 Mg Tablet, 500 MG PO BID for 7 Days , TAB Prov:ANA MARÍA GALEANO MD 03/01/17 Tramadol HCl (Tramadol HCl) 50 Mg Tablet, 50 MG PO Q4 Y for PAIN, #20 TAB Prov:ANA MARÍA GALEANO MD 03/01/17 Ferrous Sulfate* (Ferrous Sulfate*) 325 Mg Tabec, 325 MG PO TID, #90 TAB Prov:ANA MARÍA GALEANO MD 03/01/17 Ondansetron (Zofran Odt) 4 Mg Tab.rapdis, 4 MG PO Q6, #10 Prov:SCOTT TREADWELL DO 12/31/16 Hydrocodone/Acetaminophen ([place] 5-325 Tablet) 1 Each Tablet, 1 EACH PO Q6, #14 TAB Prov:SCOTT TREADWELL DO 12/31/16 Naproxen* (Naproxen*) 500 Mg Tablet, 500 MG PO BID Y for PAIN, #20 TAB Prov:SCOTT TREADWELL DO 12/31/16 Methocarbamol* (Robaxin*) 500 Mg Tab, 500 MG PO Q8 for PAIN, #20 TAB Prov:MILESCOTT DO 12/31/16 Allergies Allergies: Coded Allergies: No Known Allergy (Unverified , 03/22/17) PMhx/Soc Hx Respiratory Disorders: No Hx Cardiac Disorders: No Hx Psychiatric Problems: No Hx Miscellaneous Medical Probl: Yes (cholecystitis) Hx Alcohol Use: Yes Hx Substance Use: No Hx Tobacco Use: No Physical Exam Vitals Vital Signs Date Time Temp Pulse Resp B/P Pulse Ox O2 Delivery O2 Flow Rate FiO2 04/20/17 00:36 98.9 04/19/17 21:11 101.7 116 20 135/94 99 Physical Exam Const: obese, NAD Head: Atraumatic Eyes: Normal Conjunctiva ENT: Normal External Ears, Nose and Mouth. Neck: Full range of motion..~ No meningismus. Resp: Clear to auscultation bilaterally Cardio: Regular rate and rhythm, no murmurs Abd: Soft, Diffuse right-sided tenderness more pronounced in the right upper quadrant. non distended. Normal bowel sounds. No specific tenderness McBurney' s.No left lower quadrant pain. Skin: No petechiae or rashes Back: No midline or flank tenderness Ext: No cyanosis, or edema Neur: Awake and alert Psych: Normal Mood and Affect Result Diagram: 04/19/17225204/19/172252 Results 24 hrs Laboratory Tests Test 04/19/17 22:53 White Blood Count 11.510^3/ul Red Blood Count 4.0310^6/ul Hemoglobin 8.3g/dl Hematocrit 26.8% Mean Corpuscular Volume 66.5fl Mean Corpuscular Hemoglobin 20.6pg Mean Corpuscular Hemoglobin Concent 31.0g/dl Red Cell Distribution Width 18.8% Platelet Count 27464^3/UL Mean Platelet Volume 11.0fl Neutrophils % 65.9% Lymphocytes % 24.8% Monocytes % 7.3% Eosinophils % 1.1% Basophils % 0.6% Nucleated Red Blood Cells % 0.0/100WBC Neutrophils # (Manual) 7.610^3/ul Lymphocytes # 2.910^3/ul Monocytes # 0.810^3/ul Eosinophils # 0.110^3/ul Basophils # 0.110^3/ul Nucleated Red Blood Cells # 0.010^3/ul Urine Color STRAW Urine Clarity CLEAR Urine pH 7.0 Urine Specific [place] 1.005 Urine Ketones NEGATIVEmg/dL Urine Nitrite NEGATIVEmg/dL Urine Bilirubin NEGATIVEmg/dL Urine Urobilinogen NEGATIVEmg/dL Urine Leukocyte Esterase NEGATIVELeu/ul Urine Hemoglobin NEGATIVEmg/dL Urine Glucose NEGATIVEmg/dL Urine Total Protein NEGATIVEmg/dl Sodium Level 137mmol/L Potassium Level 3.7mmol/L Chloride Level 103mmol/L Carbon Dioxide Level 26mmol/L Anion Gap 12 Blood Urea Nitrogen 4mg/dl Creatinine 0.61mg/dl Glucose Level 99mg/dl Calcium Level 8.7mg/dl Total Bilirubin 0.1mg/dl Direct Bilirubin 0.00mg/dl Indirect Bilirubin 0.1mg/dl Aspartate Amino Transf (AST/SGOT) 34IU/L Alanine Aminotransferase (ALT/SGPT) 36IU/L Alkaline Phosphatase 144IU/L Total Protein 7.8g/dl Albumin 3.8g/dl Globulin 4.00g/dl Albumin/Globulin Ratio 0.95 Lipase 238U/L Current Medications Medications (Trade) Dose Ordered Sig/Morteza Route PRN Reason Start Time Stop Time Status Last Admin Dose Admin Sodium Chloride (NS) 1,000 ml @ 1,000 mls/hr Q1H STAT IV 04/19/17 22:09 04/19/17 23:08 DC 04/19/17 22:38 Morphine Sulfate (morphine) 4 mg ONCE STAT IV 04/19/17 22:09 04/19/17 22:12 DC 04/19/17 22:39 Ondansetron HCl (Zofran Inj) 4 mg ONCE STAT IV 04/19/17 22:09 04/19/17 22:12 DC 04/19/17 22:39 Acetaminophen (Tylenol Tab) 1,000 mg ONCE STAT PO 04/19/17 22:09 04/19/17 22:12 DC 04/19/17 22:38 Hydromorphone HCl (Dilaudid) 1 mg ONCE STAT IV 04/20/17 00:34 04/20/17 00:36 DC 04/20/17 00:46 Ondansetron HCl (Zofran Inj) 4 mg ONCE STAT IV 04/20/17 00:34 04/20/17 00:36 DC 04/20/17 00:46 DIAGNOSTIC IMAGING REPORT Patient: DEBBIE SHETTY : 1980 Age: 36 Sex: F MR #: [id number] DOS: 04/19/17 2209 Ordering MD: SVETLANA VIZCAINO PA-C Location: [facility] Room/Bed: PROCEDURE: CT abdomen and pelvis without contrast. CLINICAL INDICATION: Abdominal pain. TECHNIQUE: CT of the abdomen and pelvis without contrast was performed on a multidetector high-resolution CT scanner. Coronal and sagittal reformatted images were obtained from the axial source images. Images were reviewed on a high-resolution PACS workstation. The total exam CTDI equals 10.92 mGy and the total exam DLP equals 650.5 mGy-cm. One or more of the following dose reduction techniques were used: - Automated exposure control. - Adjustment of the mA and/or kV according to patient size. - Use of iterative reconstruction technique. COMPARISON: Ultrasound dated 03/22/[address] dated 12/31/2016. FINDINGS: Visualized lower thorax: The visualized lung bases are clear. The visualized heart is unremarkable. Hepatobiliary system and spleen: The liver is grossly unremarkable. There is no intra or extrahepatic biliary ductal dilatation. The gallbladder is grossly unremarkable. The spleen is grossly unremarkable. The pancreas is grossly unremarkable. Adrenal glands and genitourinary system: The adrenal glands are grossly unremarkable. There is no nephrolithiasis or hydronephrosis. The urinary bladder is grossly unremarkable. There are multiple left adnexal cysts, with a dominant cyst measuring 2.6 cm. The uterus and adnexa are otherwise grossly unremarkable. Gastrointestinal system: There is wall thickening of the distal ileum extending to the terminal ileum and there is mild inflammatory change in the adjacent mesentery. There is no evidence of bowel obstruction. The appendix is not identified. Peritoneum, vascular, and lymphatics: There is no free intraperitoneal air or free fluid. There is no mesenteric or retroperitoneal adenopathy. The aorta is nonaneurysmal. Musculoskeletal system and soft tissues: There are no concerning osseous lesions. The soft tissues are unremarkable. IMPRESSION: 1. Wall thickening of the distal ileum extending to the terminal ileum with inflammatory change in the surrounding mesenteric fat, consistent with distal and terminal ileitis. Differential considerations include inflammatory bowel disease and infection. 2. Left adnexal cysts, with a dominant cyst measuring 2.6 cm. RPTAT: HLBP .Elpidio Jacome MD, MD Date Time Electronically viewed and signed by .Elpidio Jacome MD, MD on 04/19/2017 23:41 .P/ CC: SVETLANA VIZCAINO PA-C DIAGNOSTIC IMAGING REPORT Patient: DEBBIE SHETTY : 1980 Age: 36 Sex: F MR #: [id number] DOS: 04/19/179 Ordering MD: SVETLANA VIZCAINO PA-C Location: [facility] Room/Bed: PROCEDURE: Ultrasound right upper quadrant CLINICAL INDICATION: Abdominal pain. TECHNIQUE: Landin scale and color Doppler imaging of the right upper quadrant of the abdomen was performed. Evaluation is partially limited due to overlying bowel gas. COMPARISON: Exam dated 03/22/2017. FINDINGS: Pancreas: Visualized portions are unremarkable. Liver: Diffuse increased echogenicity, consistent with fatty infiltration. No focal hepatic lesion. Hepatopedal flow in the main portal vein. Gallbladder: No cholelithiasis, wall thickening, or pericholecystic fluid. Common bile duct: 1.8 mm in diameter. Right Kidney: 10.3 cm in length.Normal echogenicity. No nephrolithiasis, hydronephrosis, or mass. IMPRESSION: 1. Hepatic steatosis. Otherwise, unremarkable examination. RPTAT: HLBP .Elpidio Jacome MD, MD Date Time Electronically viewed and signed by .Elpidio Jacome MD, MD on 04/19/2017 23:52 .P/ CC: SVETLANA VIZCAINO PA-C Procedures/[facility] This is a 36-year-old female presents emergency department today complaining of abdominal pain and vomiting and fevers for the past 2 days.Upon review of patient's medical records patient was seen here approximately 1 month ago with right upper quadrant pain and nausea and had a negative gallbladder workup done at this time. Patient has more diffuse pain on physical exam today and therefore did repeat a right upper quadrant ultrasound as well as CT abdomen pelvis noncontrast and laboratory workup given that the patient is febrile, tachycardic. Laboratory workup Shows a mildly elevated white blood cell count of 11.5. Her hemoglobin is decreased at 8.3. Patient currently takes iron pills. Electrolytes are within normal limits. Glucose within normal limits. Liver enzymes are within normal limits. Lipase is within normal limits. UA is negative for infection urine test is negative right upper quadrant ultrasound shows hepatic steatosis otherwise unremarkable. There is no cholelithiasis, wall thickening or pericholecystic fluid. CT abdomen pelvis noncontrast shows wall thickening of the distal ileum extending to the terminal ileum with inflammatory change of the surrounding mesenteric fat consistent with distal and terminal ileitis. Differential considerations include inflammatory bowel disease and infection. There is a left adnexal cyst with a dominant cyst measuring 2.6 cm. The uterus and adnexa are otherwise unremarkable. There is no evidence of bowel obstruction. Appendix is not identified. Patient was given Tylenol, morphine, Zofran , IV fluidshere in the emergency department. Pain persisted. She was therefore given Dilaudid And pain improved. Patient symptoms at this time is consistent with ileitis and possible inflammatory bowel disease. Patient did not have any specific tenderness at McBurney's point and her pain appeared to be more in the right upper quadrant and she indicated was radiating around to her back. I have low suspicion for acute cholecystitis, acute appendicitis. Patient's fever improved to 99. She is given a prescription for Tylenol, Motrin , [place], Zofran, Flagyl and Cipro to treat the infection. She was instructed to follow back up with her primary care doctor for further evaluation and referral to GI specialist. Patient was also anemic however she is taking 325 mg of iron twice a day. She was instructed to continue doing so and to follow up again about her anemia. Patient understood. Discussed the patient with Dr. Jalloh and he is in agreement with the plan. Departure Diagnosis: Primary Impression: Ileitis Additional Impression: Fever Fever type: unspecified Qualified Code: R50.9 - Fever, unspecified fever cause Condition: SVETLANA Sparks PA-C Apr 19, 2017 22:59
[2017-04-19 23:18] LABS: BASOPHIL # 0.1 10^3/ul (0.0-0.1); BASOPHILS % 0.6 % (0.0-2.0); EOSINOPHILS # 0.1 10^3/ul (0.0-0.5); EOSINOPHILS % 1.1 % (0.0-7.0); HEMATOCRIT 26.8 % (37.0-47.0); HEMOGLOBIN 8.3 g/dl (12.0-16.0); LYMPHOCYTES # 2.9 10^3/ul (0.8-2.9); LYMPHOCYTES % 24.8 % (15.0-51.0); MEAN CORPUSCULAR HEMOGLOBIN 20.6 pg (29.0-33.0); MEAN CORPUSCULAR VOLUME 66.5 fl (82.0-101.0); MONOCYTE # 0.8 10^3/ul (0.3-0.9); MONOCYTES % 7.3 % (0.0-11.0); NEUTROPHILS % 65.9 % (39.0-77.0); PLATELET COUNT 368 10^3/UL (140-415); RED BLOOD COUNT 4.03 10^6/ul (4.20-5.40); RED CELL DISTRIBUTION WIDTH 18.8 % (11.5-14.5); WHITE BLOOD COUNT 11.5 10^3/ul (4.8-10.8)
[2017-04-19 23:41] LABS: ALBUMIN 3.8 g/dl (3.3-4.9); ALBUMIN/GLOBULIN RATIO 0.95; BILIRUBIN,INDIRECT 0.1 mg/dl (0-1.1); BILIRUBIN,TOTAL 0.1 mg/dl (0.2-1.3); CALCIUM 8.7 mg/dl (8.4-10.2); CREATININE 0.61 mg/dl (0.44-1.00); POTASSIUM 3.7 mmol/L (3.5-5.1); TOTAL PROTEIN 7.8 g/dl (6.1-8.1)
--- NOTE | 2017-04-19 23:41 | RADRPT ---
PROCEDURE: CT abdomen and pelvis without contrast. CLINICAL INDICATION: Abdominal pain. TECHNIQUE: CT of the abdomen and pelvis without contrast was performed on a multidetector high-reso lution CT scanner. Coronal and sagittal reformatted images were obtained from the axial source image s. Images were reviewed on a high-resolution PACS workstation. The total exam CTDI equals 10.92 mGy and the total exam DLP equals 650.5 mGy-cm. One or more of the following dose reduction techniques were used: - Automated exposure control. - Adjustment of the mA and/or kV according to patient size. - Use of iterative reconstruction technique. COMPARISON: Ultrasound dated 03/22/[address] dated 12/31/2016. FINDINGS: Visualized lower thorax: The visualized lung bases are clear. The visualized heart is unremarkable. Hepatobiliary system and spleen: The liver is grossly unremarkable. There is no intra or extrahepat ic biliary ductal dilatation. The gallbladder is grossly unremarkable. The spleen is grossly unremar kable. The pancreas is grossly unremarkable. Adrenal glands and genitourinary system: The adrenal glands are grossly unremarkable. There is no n ephrolithiasis or hydronephrosis. The urinary bladder is grossly unremarkable. There are multiple l eft adnexal cysts, with a dominant cyst measuring 2.6 cm. The uterus and adnexa are otherwise gross ly unremarkable. Gastrointestinal system: There is wall thickening of the distal ileum extending to the terminal ile um and there is mild inflammatory change in the adjacent mesentery. There is no evidence of bowel o bstruction. The appendix is not identified. Peritoneum, vascular, and lymphatics: There is no free intraperitoneal air or free fluid. There is no mesenteric or retroperitoneal adenopathy. The aorta is nonaneurysmal. Musculoskeletal system and soft tissues: There are no concerning osseous lesions. The soft tissues are unremarkable. IMPRESSION: 1. Wall thickening of the distal ileum extending to the terminal ileum with inflammatory change in the surrounding mesenteric fat, consistent with distal and terminal ileitis. Differential considera tions include inflammatory bowel disease and infection. 2. Left adnexal cysts, with a dominant cyst measuring 2.6 cm. RPTAT: HLBP .Elpidio Jacome MD, Date Time Electronically viewed and signed by .Elpidio Jacome MD, MD on 04/19/2017 23:41 .P/
--- NOTE | 2017-04-19 23:52 | RADRPT ---
PROCEDURE: Ultrasound right upper quadrant CLINICAL INDICATION: Abdominal pain. TECHNIQUE: Landin scale and color Doppler imaging of the right upper quadrant of the abdomen was perf ormed. Evaluation is partially limited due to overlying bowel gas. COMPARISON: Exam dated 03/22/2017. FINDINGS: Pancreas: Visualized portions are unremarkable. Liver: Diffuse increased echogenicity, consistent with fatty infiltration. No focal hepatic lesion . Hepatopedal flow in the main portal vein. Gallbladder: No cholelithiasis, wall thickening, or pericholecystic fluid. Common bile duct: 1.8 mm in diameter. Right Kidney: 10.3 cm in length.Normal echogenicity. No nephrolithiasis, hydronephrosis, or mass. IMPRESSION: 1. Hepatic steatosis. Otherwise, unremarkable examination. RPTAT: HLBP .Elpidio Jacome MD, Date Time Electronically viewed and signed by .Elpiido Jacome MD, on 04/19/2017 23:52 .P/
[2017-04-20 00:01] LABS: ADD UMIC NO; UR ASCORBIC ACID NEGATIVE (NEGATIVE); UR BILIRUBIN (Dip) NEGATIVE (NEGATIVE); UR BLOOD (Dip) NEGATIVE (NEGATIVE); UR CLARITY CLEAR (CLEAR); UR COLOR STRAW (YELLOW); UR GLUCOSE (Dip) NEGATIVE (NEGATIVE); UR KETONES (Dip) NEGATIVE (NEGATIVE); UR LEUKOCYTE ESTERASE (Dip) NEGATIVE Leu/ul (NEGATIVE); UR NITRITE (Dip) NEGATIVE (NEGATIVE); UR SPECIFIC GRAVITY (Dip) 1.005 (1.003-1.030); UR TOTAL PROTEIN (Dip) NEGATIVE (NEGATIVE); UR UROBILINOGEN (Dip) NEGATIVE (NEGATIVE)
[2017-04-20] MEDS ORDERED: HYDROmorphONE 1 MG/ML SYG IV STA (00:34)
[2017-04-20] MEDS ORDERED: ONDANSETRON 4 MG INJ IV STA (00:34)
[2017-04-20 00:36] VITALS: TEMP 98.9
[2017-04-20] MEDS ORDERED: CIPR500T4 PO (01:08)
[2017-04-20] MEDS ORDERED: METR500T PO (01:08)
[2017-04-20] MEDS ORDERED: HYDR-906 PO (01:09)
[2017-04-20] MEDS ORDERED: ONDA4TAB8 PO (01:09)
[2017-04-20] MEDS ORDERED: ACET500C5 PO (01:10)
[2017-04-20] MEDS ORDERED: IBUP-1542 PO (01:11)
[2017-04-20 01:55] VITALS: BP 104/55; PULSE 80; RESP 18
== END 2017-04-20 01:57 | disposition home or self-care (01) ==
LOC: FTE 21:06
DX: K52.9 Noninfective gastroenteritis and colitis, unspecified (principal)
CPT/HCPCS: 36415; 74176; 76705; 80053; 81003; 83690; 85025; 96374; 96375; 96376; J1170; J2270; J2405; J7030; Z7502; Z7610

== ENCOUNTER 2017-04-29 21:41 | Inpatient (IN) | payer MEDICAID ==
[~2017-04-29] VITALS: Ht 162.6 cm; Wt 76.0 kg
[~2017-04-29 21:41] MED LIST changes: +ACET500C5 PO; +METR500T PO; +ONDA4TAB8 PO
[2017-04-29 21:43] VITALS: Ht 162.6 cm; Wt 76.0 kg
[2017-04-29] MEDS ORDERED: ONDANSETRON 4 MG INJ IV STA (22:20)
[2017-04-29] MEDS ORDERED: HYDROmorphONE 1 MG/ML SYG IV STA (22:20)
--- NOTE | 2017-04-29 22:46 | ERD ---
ER Documentation Chief Complaint Date/Time DATE: 04/29/17 TIME: 22:44 Chief Complaint Right upper quadrant pain HPI This is a 36-year-old female complaining pain in the right upper quadrant with radiation around to the right back and shoulder blade. Patient states that she has had this before with gallstones. The patient had nausea vomiting. Patient describes the pain is crampy. The patient says the pain has been there for 2 days. Patient has had no shortness of breath no chest pain. Patient states she vomited 7 times today. The last 4 contain blood. The first 2 had blood mixed with food. Blood was bright red. Last he vomits had bright red blood only ROS All systems reviewed and are negative except as per history of present illness. Medications Home Meds Active Scripts Acetaminophen* (Tylophen*) 500 Mg Capsule, 1 CAP PO Q6H Y for PAIN AND OR ELEVATED TEMP, #30 CAP Prov:SVETLANA VIZCAINO PA-C 04/20/17 Ondansetron Hcl* (Zofran*) 4 Mg Tablet, 4 MG PO Q6H for NAUSEA AND/OR VOMITING, #30 TAB Prov:SVETLANA VIZCAINO PA-C 04/20/17 Metronidazole* (Flagyl*) 500 Mg Tablet, 500 MG PO TID for 7 Days, TAB Prov:SVETLANA VIZCAINO PA-C 04/20/17 Ciprofloxacin Hcl* (Ciprofloxacin Hcl*) 500 Mg Tablet, 500 MG PO BID for 7 Days , TAB Prov:SVETLANA VIZCAINOC 04/20/17 Dicyclomine Hcl* (Bentyl*) 10 Mg Capsule, 20 MG PO QID, #30 CAP Prov:ISAIAS JEAN BAPTISTE DO 03/22/17 Ibuprofen* (Motrin*) 600 Mg Tab, 600 MG PO Q6, #20 TAB Prov:ANA MARÍA GALEANO MD 03/01/17 Tramadol HCl (Tramadol HCl) 50 Mg Tablet, 50 MG PO Q4 Y for PAIN, #20 TAB Prov:ANA MARÍA GALEANO MD 03/01/17 Ferrous Sulfate* (Ferrous Sulfate*) 325 Mg Tabec, 325 MG PO TID, #90 TAB Prov:ANA MARÍA GALEANO MD 03/01/17 Ondansetron (Zofran Odt) 4 Mg Tab.rapdis, 4 MG PO Q6, #10 Prov:SCOTT TREADWELL DO 12/31/16 Hydrocodone/Acetaminophen ([place] 5-325 Tablet) 1 Each Tablet, 1 EACH PO Q6, #14 TAB Prov:SCOTT TREADWELL DO 12/31/16 Naproxen* (Naproxen*) 500 Mg Tablet, 500 MG PO BID Y for PAIN, #20 TAB Prov:SCOTT TREADWELL DO 12/31/16 Discontinued Scripts Ibuprofen* (Motrin*) 600 Mg Tab, 600 MG PO Q6, #30 TAB Prov:SVETLANA VIZCAINO PA-C 04/20/17 Hydrocodone/Acetaminophen ([place] 5-325 Tablet) 1 Each Tablet, 1 TAB PO Q6H Y for PAIN, #15 TAB Prov:SVETLANA VIZCAINO PA-C 04/20/17 Ranitidine Hcl* (Zantac*) 150 Mg Tablet, 150 MG PO BID Y for EPIGASTRIC PAIN, # 30 TAB Prov:ABAD JEAN BAPTISTESTERICS Alfredo GRANADO 03/22/17 Hydrocodone/Acetaminophen ([place] 10-325 Tablet) 1 Each Tablet, 1 TAB PO Q6H Y for PAIN, #20 TAB Prov:ABAD JEAN BAPTISTESTOLOS ASerene DO 03/22/17 Ciprofloxacin Hcl* (Ciprofloxacin Hcl*) 500 Mg Tablet, 500 MG PO BID for 7 Days , TAB Prov:ANA MARÍA GALEANO MD 03/01/17 Methocarbamol* (Robaxin*) 500 Mg Tab, 500 MG PO Q8 for PAIN, #20 TAB Prov:SCOTT TREADWELL DO 12/31/16 Allergies Allergies: Coded Allergies: No Known Allergy (Unverified , 04/29/17) PMhx/Soc History of Surgery: Yes (APPENDIX, X 2) Anesthesia Reaction: No Hx Neurological Disorder: No Hx Respiratory Disorders: No Hx Cardiac Disorders: No Hx Psychiatric Problems: No Hx Miscellaneous Medical Probl: No Hx Alcohol Use: No Hx Substance Use: No Hx Tobacco Use: No Smoking Status: Never smoker FmHx Family History: No coronary disease Physical Exam Vitals Vital Signs Date Time Temp Pulse Resp B/P Pulse Ox O2 Delivery O2 Flow Rate FiO2 04/29/17 22:28 75 20 129/74 100 Room Air 04/29/17 21:43 98.2 79 17 121/62 99 Physical Exam Const: Well-developed, well-nourished Head: Atraumatic, normocephalic Eyes: Normal Conjunctiva, PERRLA, EOMI, normal sclera, no nystagmus ENT: Normal External Ears, Nose and Mouth, moist mucus membranes. Neck: Full range of motion. No meningismus, no lymphadenopathy. Resp: Clear to auscultation bilaterally, no wheezing, rhonchi, rales Cardio: Regular rate and rhythm, no murmurs, S1 S2 present Abd: Soft, moderate right upper quadrant tenderness non distended. Normal bowel sounds, no guarding or rebound, no pulsitile abdominal masses or bruits Skin: No petechiae or rashes, no ecchymosis , no maculopapular rash Back: No midline or flank tenderness Ext: No cyanosis, or edema, FROM x 4, normal inspection, neurovascularly intact x 4 Neur: Awake and alert, STR 5/5 x 4, sensation intact x 4, no focal findings, cerebellum intact Psych: Normal Mood and Affect Result Diagram: 04/29/17221904/29/172219 Results 24 hrs Laboratory Tests Test 04/29/17 22:20 White Blood Count 11.310^3/ul Red Blood Count 4.2310^6/ul Hemoglobin 8.6g/dl Hematocrit 28.8% Mean Corpuscular Volume 68.1fl Mean Corpuscular Hemoglobin 20.3pg Mean Corpuscular Hemoglobin Concent 29.9g/dl Red Cell Distribution Width 19.1% Platelet Count 61915^3/UL Mean Platelet Volume 10.7fl Neutrophils % 49.8% Lymphocytes % 36.5% Monocytes % 9.4% Eosinophils % 2.9% Basophils % 1.0% Nucleated Red Blood Cells % 0.0/100WBC Neutrophils # 5.610^3/ul Lymphocytes # 4.110^3/ul Monocytes # 1.110^3/ul Eosinophils # 0.310^3/ul Basophils # 0.110^3/ul Nucleated Red Blood Cells # 0.010^3/ul Sodium Level 139mmol/L Potassium Level 4.0mmol/L Chloride Level 107mmol/L Carbon Dioxide Level 24mmol/L Anion Gap 12 Blood Urea Nitrogen 11mg/dl Creatinine 1.06mg/dl Glucose Level 116mg/dl Calcium Level 9.0mg/dl Total Bilirubin 0.0mg/dl Direct Bilirubin 0.00mg/dl Indirect Bilirubin 0.0mg/dl Aspartate Amino Transf (AST/SGOT) 49IU/L Alanine Aminotransferase (ALT/SGPT) 57IU/L Alkaline Phosphatase 135IU/L Total Protein 8.1g/dl Albumin 4.0g/dl Globulin 4.10g/dl Albumin/Globulin Ratio 0.97 Lipase 311U/L Current Medications Medications (Trade) Dose Ordered Sig/Morteza Route PRN Reason Start Time Stop Time Status Last Admin Dose Admin Hydromorphone HCl (Dilaudid) 1 mg ONCE STAT IV 04/29/17 22:20 04/29/17 22:21 DC 04/29/17 22:48 Ondansetron HCl (Zofran Inj) 4 mg ONCE STAT IV 04/29/17 22:20 04/29/17 22:21 DC 04/29/17 22:48 Ketorolac Tromethamine (Toradol) 30 mg ONCE ONCE IV 04/29/17 23:59 04/30/17 00:00 DC 04/30/17 00:06 Hydromorphone HCl (Dilaudid) 1 mg ONCE ONCE IV 04/30/17 00:23 04/30/17 00:24 DC 04/30/17 00:41 Ondansetron HCl (Zofran Inj) 4 mg ONCE ONCE IV 04/30/17 00:23 04/30/17 00:24 DC 04/30/17 00:42 Procedures/MDM PROCEDURE: CT ABDOMEN/PELVIS WITHOUT CONTRAST CLINICAL INDICATION: 36-year-old female with abdominal pain. TECHNIQUE: The study was performed utilizing a [employer] VCT 64-slice CT scanner. Direct axial sections were obtained through the abdomen and pelvis without the use of intravenous contrast material. Sagittal and coronal reformations were obtained. One or more of the following dose reduction techniques were utilized: automated exposure control, adjustment of the mA and/ or kV according to patient's size or use of iterative reconstruction technique. The images were reviewed on a PACS workstation. CTD/vol = 13.8 mGy; Total Exam DLP = 843.0 mGy-cm. COMPARISON: Right upper quadrant ultrasound April 29, 2017; CT abdomen/ pelvis April 19, 2017. FINDINGS: There is minimal bibasilar subsegmental atelectasis. There is no evidence for significant pleural effusion. The liver has a normal size and contour without focal areas of abnormal density. No intrahepatic nor extrahepatic biliary ductal dilatation is seen. The gallbladder demonstrates no wall thickening nor pericholecystic fluid. No biliary stones are evident. The pancreas is without areas of abnormal attenuation. The spleen is identified and has a normal size without abnormal density. The adrenal glands are unremarkable. The right kidney is without abnormal density, calculi or obstruction. There is a punctate nonobstructing left upper pole renal calculus. There is no evidence for hydronephrosis.. The urinary bladder contains urine. There is no evidence for bowel obstruction. The appendix is not visualized however there is no significant periappendiceal inflammatory changes. The uterus is anteflexed. There is a left ovarian cyst measuring approximately 2.3 x 2.1 x 1.8 cm. There is no significant free fluid. The aortoiliac vessels are without aneurysmal dilatation. The osseous structures are intact. IMPRESSION: 1. Punctate nonobstructing left upper pole renal calculus. 2. Left ovarian cyst. .Randal Moon MD, MD Date Time Electronically viewed and signed by .Randal Moon MD, on 04/30/2017 01:13 .M/ CC: ISAIAS JEAN BAPTISTE DO PROCEDURE: US Abdomen. CLINICAL INDICATION: Abdominal pain. TECHNIQUE: Multiple real-time images were acquired of the patient's abdomen and retroperitoneum utilizing a high resolution transducer with Doppler interrogation. Images were reviewed on a PACS workstation COMPARISON: None available FINDINGS: The liver demonstrates normal echogenicity and size, measuring 14.1 cm. There is no intrahepatic biliary ductal dilatation or masses. The portal vein demonstrates normal hepatopetal flow. The gallbladder is partially distended without evidence of gallstones, wall thickening or pericholecystic fluid. The sonographic Palma sign is absent. No intra or extrahepatic biliary dilatation is seen. The common bile duct measures 3.9 mm in maximal dimension. The bowel gas. No free fluid is identified. The right kidney is normal size, and demonstrates normal echogenicity and morphology. The right kidney measures 11.5 cm in long dimension. There is no dilatation of the pelvicaliceal system. There are no perinephric fluid collections. There is a subtle 6.5 mm increased echogenicity, suggestive of nephrolithiasis. The visualized portions of the aorta are normal in appearance. IMPRESSION: 1. Possible 6.5 mm right mid pole nephrolithiasis. No evidence of hydronephrosis. 2. Otherwise, normal sonographic findings of the right upper quadrant. No evidence of gallstones or cholecystitis. RPTAT: HGAS .Khoi Caldera MD, MD Date Time Electronically viewed and signed by .Khoi Caldera MD, MD on 04/29/2017 23: 44 .S/ CC: ISAIAS JEAN BAPTISTE DO Patient's blood count is 8.6. Was 8.3 a few days ago. Patient is having continued pain which does resemble biliary colic. It is possible the patient has gallbladder dysfunction because she has no stones and has similar pattern of gallbladder pain and referred pain. The patient is vomiting some blood this could be from rupturing a vessel during her multiple vomiting episodes. Other possibilities could be she has gastritis or duodenitis or duodenal ulcer disease. The patient will be admitted for pain control and EGD to rule out any GI bleed. She could also undergo a HIDA scan to evaluate gallbladder dysfunction Departure Diagnosis: Primary Impression: Hematemesis Nausea presence: with nausea Qualified Code: K92.0 - Hematemesis with nausea Condition: Stable ISAIAS JEAN BAPTISTE DO Apr 29, 2017 22:46
[2017-04-29 22:52] LABS: BASOPHIL # 0.1 10^3/ul (0.0-0.1); EOSINOPHILS # 0.3 10^3/ul (0.0-0.5); EOSINOPHILS % 2.9 % (0.0-7.0); HEMATOCRIT 28.8 % (37.0-47.0); HEMOGLOBIN 8.6 g/dl (12.0-16.0); LYMPHOCYTES # 4.1 10^3/ul (0.8-2.9); LYMPHOCYTES % 36.5 % (15.0-51.0); MEAN CORPUSCULAR HEMOGLOBIN 20.3 pg (29.0-33.0); MEAN CORPUSCULAR HGB CONC 29.9 g/dl (32.0-37.0); MEAN CORPUSCULAR VOLUME 68.1 fl (82.0-101.0); MEAN PLATELET VOLUME 10.7 fl (7.4-10.4); MONOCYTE # 1.1 10^3/ul (0.3-0.9); MONOCYTES % 9.4 % (0.0-11.0); NEUTROPHIL # 5.6 10^3/ul (1.6-7.5); NEUTROPHILS % 49.8 % (39.0-77.0); PLATELET COUNT 413 10^3/UL (140-415); RED BLOOD COUNT 4.23 10^6/ul (4.20-5.40); RED CELL DISTRIBUTION WIDTH 19.1 % (11.5-14.5); WHITE BLOOD COUNT 11.3 10^3/ul (4.8-10.8)
[2017-04-29 23:11] LABS: ALBUMIN/GLOBULIN RATIO 0.97; CREATININE 1.06 mg/dl (0.44-1.00); TOTAL PROTEIN 8.1 g/dl (6.1-8.1)
--- NOTE | 2017-04-29 23:45 | RADRPT ---
PROCEDURE: US Abdomen. CLINICAL INDICATION: Abdominal pain. TECHNIQUE: Multiple real-time images were acquired of the patient's abdomen and retroperitoneum ut ilizing a high resolution transducer with Doppler interrogation. Images were reviewed on a PACS work station COMPARISON: None available FINDINGS: The liver demonstrates normal echogenicity and size, measuring 14.1 cm. There is no intrahepatic emir iary ductal dilatation or masses. The portal vein demonstrates normal hepatopetal flow. The gallbl adder is partially distended without evidence of gallstones, wall thickening or pericholecystic flui d. The sonographic Palma sign is absent. No intra or extrahepatic biliary dilatation is seen. The common bile duct measures 3.9 mm in maximal dimension. The bowel gas. No free fluid is identified . The right kidney is normal size, and demonstrates normal echogenicity and morphology. The right kid marie measures 11.5 cm in long dimension. There is no dilatation of the pelvicaliceal system. There are no perinephric fluid collections. There is a subtle 6.5 mm increased echogenicity, suggestive o f nephrolithiasis. The visualized portions of the aorta are normal in appearance. IMPRESSION: 1. Possible 6.5 mm right mid pole nephrolithiasis. No evidence of hydronephrosis. 2. Otherwise, normal sonographic findings of the right upper quadrant. No evidence of gallstones o r cholecystitis. RPTAT: HGAS .Khoi Caldera MD, MD Date Time Electronically viewed and signed by .Khoi Caldera MD, MD on 04/29/2017 23:44 .S/
[2017-04-29] MEDS ORDERED: KETOROLAC 30 MG INJ IV ONE (23:59)
[2017-04-30] VITALS (12 sets, daily range): BP systolic 93–146; BP diastolic 55–72; PULSE 66–75; RESP 18–19
[2017-04-30] MEDS ORDERED: ONDANSETRON 4 MG INJ IV ONE (00:23)
[2017-04-30] MEDS ORDERED: HYDROmorphONE 1 MG/ML SYG IV ONE (00:23)
--- NOTE | 2017-04-30 01:13 | RADRPT ---
PROCEDURE: CT ABDOMEN/PELVIS WITHOUT CONTRAST CLINICAL INDICATION: 36-year-old female with abdominal pain. TECHNIQUE: The study was performed utilizing a [employer] VCT 64-slice CT scanner. Direct axia l sections were obtained through the abdomen and pelvis without the use of intravenous contrast mate rial. Sagittal and coronal reformations were obtained. One or more of the following dose reduction t echniques were utilized: automated exposure control, adjustment of the mA and/or kV according to pat ient's size or use of iterative reconstruction technique. [facility] CTD/vol = 13.8 mGy; Total Exam DLP = 843.0 mGy-cm. COMPARISON: Right upper quadrant ultrasound April 29, 2017; CT abdomen/pelvis April 19. FINDINGS: There is minimal bibasilar subsegmental atelectasis. There is no evidence for significant pleural e ffusion. The liver has a normal size and contour without focal areas of abnormal density. No intrah epatic nor extrahepatic biliary ductal dilatation is seen. The gallbladder demonstrates no wall thic kening nor pericholecystic fluid. No biliary stones are evident. The pancreas is without areas of ab normal attenuation. The spleen is identified and has a normal size without abnormal density. The ad renal glands are unremarkable. The right kidney is without abnormal density, calculi or obstruction. There is a punctate nonobstructing left upper pole renal calculus. There is no evidence for hydro nephrosis.. The urinary bladder contains urine. There is no evidence for bowel obstruction. The appe ndix is not visualized however there is no significant periappendiceal inflammatory changes. The ut erus is anteflexed. There is a left ovarian cyst measuring approximately 2.3 x 2.1 x 1.8 cm. There is no significant free fluid. The aortoiliac vessels are without aneurysmal dilatation. The os seous structures are intact. IMPRESSION: 1. Punctate nonobstructing left upper pole renal calculus. 2. Left ovarian cyst. .Randal Moon MD, Date Time Electronically viewed and signed by .Randal Moon MD, MD on 04/30/2017 01:13 .[place]
[2017-04-30] MEDS ORDERED: PANTOPRAZOLE IV 80 MG in SOD CHLORIDE 0.9% 100 ML IV STA (01:23)
[2017-04-30] MEDS ORDERED: PANTOPRAZOLE IV 80 MG in SOD CHLORIDE 0.9% 100 ML IVPB STA (01:23)
[2017-04-30] MEDS ORDERED: SOD CHLORIDE 0.9% 1,000 ML IV SCH (02:37)
[2017-04-30] MEDS ORDERED: ONDANSETRON 4 MG INJ IV PRN (03:00)
[2017-04-30] MEDS ORDERED: ACETAMINOPHEN 325 MG TAB PO PRN (03:00)
[2017-04-30] MEDS: ONDANSETRON 4 MG INJ IV PRN ×2 (07:24→14:43)
[2017-04-30] MEDS ORDERED: morphine 2 MG INJ IV PRN (07:30)
[2017-04-30] MEDS: DEXTROSE 5%-0.45% NACL 1,000 ML IV SCH ×2 (07:35→18:01)
[2017-04-30] MEDS ORDERED: HYDROmorphONE 2 MG/ML SYG IV STA (09:37)
--- NOTE | 2017-04-30 10:43 | HP ---
Date/Time of Note Date/Time of Note DATE: 04/30/17 TIME: 10:34 Assessment/Plan VTE Prophylaxis VTE Prophylaxis Intervention: SCD's Lines/Catheters IV Catheter Type (from Nrs): Peripheral IV Urinary Cath still in place: No Assessment/Plan Assessment/Plan 1. Hematemesis -Hemoglobin is pretty much stable compared to the values over the past few months -PPI -GI consult 2. Right upper quadrant pain -Imaging without definitive diagnosis -Check UA and urine culture -Pain management -GI also to address this issue. Will leave the decision up to GI at this point to decide if additional imaging warranted 3. EULOGIO -Likely from volume depletion -IV fluid -Close monitoring for now -Renal ultrasound and nephrology consult as needed HPI/ROS Admit Date/Time Admit Date/Time Apr 30, 2017 at 02:39 Hx of Present Illness This is a 36-year-old female who presented to the emergency department complaining of abdominal pain and vomiting blood. Abdominal pain is mainly localized in the right upper quadrant area with radiation to her back. She also reported associated nausea and vomiting. During most episodes of vomiting , emesis was bloody. Patient had been evaluated in the ER 4 or 5 times for abdominal pain in the past 3-4 months. During her last ER visit about 10 days ago, she was diagnosed with ileitis. When she presented to the ER at this time, right upper quadrant ultrasound showed a 6.5 mm right mid pole nephrolithiasis. CT abdomen pelvis showed Punctate nonobstructing left upper pole renal calculus and left ovarian cyst. Her hemoglobin is 8.6, with MCV of 68, which is pretty much stable peritoneal values from the past few months. Creatinine is 1.06 which has almost doubled. PMH/Family/Social Social History Smoking Status: Never smoker Exam/Review of Systems Vital Signs Vitals Vital Signs Date Time Temp Pulse Resp B/P Pulse Ox O2 Delivery O2 Flow Rate FiO2 04/30/17 08:35 66 04/30/17 07:50 98.2 18 111/68 98 04/30/17 02:50 Room Air Exam Constitutional: other (In moderate distress due to pain) Head: atraumatic, normocephalic Eyes: EOMI, PERRL Respiratory: clear to auscultation, normal air movement Cardiovascular: nl pulses, regular rate and rhythm Gastrointestinal: soft, tender Extremities: normal pulses Labs Result Diagram: 04/29/17221904/29/172219 Medications Medications Current Medications Ondansetron HCl 4 mg 4 mg Q6H PRN IV NAUSEA AND/OR VOMITING Last administered on 04/30/17 07:24; Admin Dose 4 MG; Start 04/30/17 at 07:30 Dextrose/Sodium Chloride (D5-1/2ns) 1,000 ml @ 100 mls/hr Q10H IV Last administered on 04/30/17 07:35; Admin Dose 100 MLS/HR; Start 04/30/17 at 07:30 Morphine Sulfate (morphine) 4 mg Q4H PRN IV pain; Start 04/30/17 at 11:30 Hydromorphone HCl (Dilaudid) 1 mg Q4H PRN IV PAIN; Start 04/30/17 at 13:00 KULWANT CHILEL MD Apr 30, 2017 10:42
[2017-04-30 11:15] LABS: BASOPHIL # 0.1 10^3/ul (0.0-0.1); BASOPHILS % 0.9 % (0.0-2.0); EOSINOPHILS # 0.2 10^3/ul (0.0-0.5); HEMATOCRIT 27.6 % (37.0-47.0); HEMOGLOBIN 8.1 g/dl (12.0-16.0); LYMPHOCYTES # 2.8 10^3/ul (0.8-2.9); LYMPHOCYTES % 29.9 % (15.0-51.0); MEAN CORPUSCULAR HGB CONC 29.3 g/dl (32.0-37.0); MEAN CORPUSCULAR VOLUME 68.3 fl (82.0-101.0); MEAN PLATELET VOLUME 10.4 fl (7.4-10.4); MONOCYTE # 0.7 10^3/ul (0.3-0.9); MONOCYTES % 6.9 % (0.0-11.0); NEUTROPHIL # 5.6 10^3/ul (1.6-7.5); PLATELET COUNT 399 10^3/UL (140-415); RED BLOOD COUNT 4.04 10^6/ul (4.20-5.40); RED CELL DISTRIBUTION WIDTH 19.1 % (11.5-14.5); WHITE BLOOD COUNT 9.4 10^3/ul (4.8-10.8)
[2017-04-30 11:40] LABS: CALCIUM 8.4 mg/dl (8.4-10.2); CREATININE 0.94 mg/dl (0.44-1.00)
[2017-04-30] MEDS ORDERED: FENTAnyl 50 MCG/ML VIAL ONE (14:06)
[2017-04-30] MEDS ORDERED: PROPOFOL 20 ML ONE (14:06)
[2017-04-30] MEDS ORDERED: MIDAZOLAM 1 MG/ML 2 ML INJ ONE (14:07)
[2017-04-30 14:23] LABS: ADD UMIC NO; UR ASCORBIC ACID NEGATIVE (NEGATIVE); UR BILIRUBIN (Dip) NEGATIVE (NEGATIVE); UR BLOOD (Dip) NEGATIVE (NEGATIVE); UR CLARITY CLEAR (CLEAR); UR COLOR STRAW (YELLOW); UR GLUCOSE (Dip) NEGATIVE (NEGATIVE); UR KETONES (Dip) NEGATIVE (NEGATIVE); UR LEUKOCYTE ESTERASE (Dip) NEGATIVE Leu/ul (NEGATIVE); UR NITRITE (Dip) NEGATIVE (NEGATIVE); UR SPECIFIC GRAVITY (Dip) 1.009 (1.003-1.030); UR TOTAL PROTEIN (Dip) NEGATIVE (NEGATIVE); UR UROBILINOGEN (Dip) NEGATIVE (NEGATIVE)
[2017-04-30] MEDS: HYDROmorphONE 1 MG/ML SYG IV PRN ×2 (14:44→19:42)
--- NOTE | 2017-04-30 14:56 | CONS ---
Date/Time of Note Date/Time of Note DATE: 04/30/17 TIME: 14:40 Assessment/Plan Assessment/Plan Additional Assessment/Plan Assessment * Anemia * Abdominal pain * Hematemesis Plan * EGD risk benefit explained to the patient and agreed with the planned procedure * Pain control * Monitor hemoglobin and hematocrit * case discussed with DR Davis * further orders will depend on clinical course Consultation Date/Type/Reason Admit Date/Time Apr 30, 2017 at 02:39 Date of Consultation: Apr 30, 2017 Type of Consultation: gastroenterology Reason for Consultation hematemesis abdominal pain Referring Provider: KULWANT CHILEL MD Hx of Present Illness 36 year old female presented in the emergency room because of right upper quadrant abdominal pain hematemesis.Present condition started 2 days prior to consultation as right upper quadrant pain radiating to the back with associated nausea and hematemesis.Hematemesis described about 2 teaspoon full fresh blood admired with food.Emergency room work up revealed anemia with hemoglobin 8.[address] scan showed . Punctate nonobstructing left upper pole renal calculus.. Left ovarian cyst.Gallbladder ultrasound Possible 6.5 mm right mid pole nephrolithiasis. No evidence of hydronephrosis. . Otherwise, normal sonographic findings of the right upper quadrant. No evidence of gallstones or cholecystitis. Presently patient right flank pain with nausea and vomiting but no bleeding. I have explained to the family the planned EGD for tomorrow and agreed with the planned procedure Interview was conducted with seismic interpreter #[id number] Constitutional: improved, no complaints Eyes: no complaints ENT: no complaints Respiratory: no complaints Cardiovascular: no complaints Gastrointestinal: nausea, pain, vomiting Genitourinary: no complaints Musculoskeletal: no complaints Skin: no complaints Neurologic: no complaints Endocrine: no complaints Lymphatic: no complaints Psychological: nl mood/affect, no complaints Immunologic: no complaints Past Medical History Medical History: no pertinent history Past Surgical History Past Surgical Hx: no surgical history Social History Alcohol Use: none Smoking Status: Never smoker Exam/Review of Systems Vital Signs Vitals Vital Signs Date Time Temp Pulse Resp B/P Pulse Ox O2 Delivery O2 Flow Rate FiO2 04/30/17 12:00 66 04/30/17 11:54 98.8 18 104/62 94 04/30/17 02:50 Room Air Exam Constitutional: alert, oriented, well developed Psych: nl mood/affect, no complaints Head: atraumatic, normocephalic Eyes: EOMI, PERRL, nl conjunctiva, nl lids, nl sclera ENMT: nl external ears & nose, nl lips & teeth, nl nasal mucosa & septum Neck: non-tender, supple Respiratory: clear to auscultation, normal air movement Cardiovascular: nl pulses, regular rate and rhythm Gastrointestinal: nl liver, spleen, soft, tender (right flank) Musculoskeletal: nl extremities to inspection, nl gait and stance Extremities: normal pulses Neurological: nl mental status, nl speech, nl strength Skin: nl turgor, No rash or lesions Lymph: nl lymph nodes Results Result Diagram: 04/30/17 1100 04/30/17 1100 Results 24 hrs Laboratory Tests Test 04/29/17 22:20 04/30/17 11:00 04/30/17 13:39 White Blood Count 11.3 H 9.4 Red Blood Count 4.23 4.04 L Hemoglobin 8.6 L 8.1 L Hematocrit 28.8 L 27.6 L Mean Corpuscular Volume 68.1 L 68.3 L Mean Corpuscular Hemoglobin 20.3 L 20.0 L Mean Corpuscular Hemoglobin Concent 29.9 L 29.3 L Red Cell Distribution Width 19.1 H 19.1 H Platelet Count 413 399 Mean Platelet Volume 10.7 H 10.4 Neutrophils % 49.8 60.0 Lymphocytes % 36.5 29.9 Monocytes % 9.4 6.9 Eosinophils % 2.9 2.0 Basophils % 1.0 0.9 Nucleated Red Blood Cells % 0.0 0.0 Neutrophils # 5.6 5.6 Lymphocytes # 4.1 H 2.8 Monocytes # 1.1 H 0.7 Eosinophils # 0.3 0.2 Basophils # 0.1 0.1 Nucleated Red Blood Cells # 0.0 0.0 Sodium Level 139 142 Potassium Level 4.0 4.0 Chloride Level 107 112 H Carbon Dioxide Level 24 25 Anion Gap 12 9 Blood Urea Nitrogen 11 10 Creatinine 1.06 H 0.94 Glucose Level 116 111 Calcium Level 9.0 8.4 Total Bilirubin 0.0 L Direct Bilirubin 0.00 Indirect Bilirubin 0.0 Aspartate Amino Transf (AST/SGOT) 49 H Alanine Aminotransferase (ALT/SGPT) 57 Alkaline Phosphatase 135 H Total Protein 8.1 Albumin 4.0 Globulin 4.10 H Albumin/Globulin Ratio 0.97 Lipase 311 H Urine Color STRAW Urine Clarity CLEAR Urine pH 5.0 Urine Specific Doyle 1.009 Urine Ketones NEGATIVE Urine Nitrite NEGATIVE Urine Bilirubin NEGATIVE Urine Urobilinogen NEGATIVE Urine Leukocyte Esterase NEGATIVE Urine Hemoglobin NEGATIVE Urine Glucose NEGATIVE Urine Total Protein NEGATIVE Medications Medications Current Medications Ondansetron HCl 4 mg 4 mg Q6H PRN IV NAUSEA AND/OR VOMITING Last administered on 04/30/17 07:24; Admin Dose 4 MG; Start 04/30/17 at 07:30 Dextrose/Sodium Chloride (D5-1/2ns) 1,000 ml @ 100 mls/hr Q10H IV Last administered on 04/30/17 07:35; Admin Dose 100 MLS/HR; Start 04/30/17 at 07:30 Morphine Sulfate (morphine) 4 mg Q4H PRN IV pain; Start 04/30/17 at 11:30 Hydromorphone HCl (Dilaudid) 1 mg Q4H PRN IV PAIN; Start 04/30/17 at 13:00 Pantoprazole (Protonix Iv) 40 mg BID@06,18 IV ; Start 04/30/17 at 18:00 JENNIFER DUNHAM NP Apr 30, 2017 14:51
[2017-04-30] MEDS: PANTOPRAZOLE 40 MG INJ IV SCH (18:00)
[2017-05-01] VITALS (18 sets, daily range): BP systolic 97–121; BP diastolic 56–79; PULSE 65–75; RESP 10–24
[2017-05-01] MEDS: ONDANSETRON 4 MG INJ IV PRN ×3 (00:19→22:13)
[2017-05-01 07:54] LABS: BASOPHIL # 0.1 10^3/ul (0.0-0.1); BASOPHILS % 0.9 % (0.0-2.0); EOSINOPHILS # 0.2 10^3/ul (0.0-0.5); EOSINOPHILS % 2.1 % (0.0-7.0); HEMATOCRIT 26.6 % (37.0-47.0); HEMOGLOBIN 7.9 g/dl (12.0-16.0); LYMPHOCYTES # 2.5 10^3/ul (0.8-2.9); LYMPHOCYTES % 30.2 % (15.0-51.0); MEAN CORPUSCULAR HEMOGLOBIN 20.3 pg (29.0-33.0); MEAN CORPUSCULAR HGB CONC 29.7 g/dl (32.0-37.0); MEAN CORPUSCULAR VOLUME 68.4 fl (82.0-101.0); MEAN PLATELET VOLUME 10.5 fl (7.4-10.4); MONOCYTE # 0.4 10^3/ul (0.3-0.9); MONOCYTES % 5.4 % (0.0-11.0); NEUTROPHILS % 61.2 % (39.0-77.0); PLATELET COUNT 395 10^3/UL (140-415); RED BLOOD COUNT 3.89 10^6/ul (4.20-5.40); WHITE BLOOD COUNT 8.2 10^3/ul (4.8-10.8)
[2017-05-01 08:10] LABS: CALCIUM 8.7 mg/dl (8.4-10.2); CREATININE 0.85 mg/dl (0.44-1.00); POTASSIUM 3.8 mmol/L (3.5-5.1)
[2017-05-01] MEDS: DEXTROSE 5%-0.45% NACL 1,000 ML IV SCH ×2 (08:30→14:04)
[2017-05-01] MEDS: PANTOPRAZOLE 40 MG INJ IV SCH ×2 (08:56→18:47)
[2017-05-01] MEDS: HYDROmorphONE 1 MG/ML SYG IV PRN ×3 (09:04→20:00)
--- NOTE | 2017-05-01 15:49 | PN ---
Date/Time of Note Date/Time of Note DATE: 05/01/17 TIME: 15:47 Assessment/Plan VTE Prophylaxis VTE Prophylaxis Intervention: SCD's Lines/Catheters IV Catheter Type (from Nrsg): Peripheral IV Urinary Cath still in place: No Assessment/Plan Assessment/Plan 1. Hematemesis -Hemoglobin is pretty much stable compared to the values over the past few months - IV PPI, GI consulted , plan for EGD today 2. Right upper quadrant pain- GI following, 3. EULOGIO -Likely from volume depletion- improving with IVF hyrdration -IV fluid SCD for DVT prophylaxis Subjective 24 Hr Interval Summary Free Text/Dictation no acute events, pain controlled, plan for EGD today Exam/Review of Systems Vital Signs Vitals Vital Signs Date Time Temp Pulse Resp B/P Pulse Ox O2 Delivery O2 Flow Rate FiO2 05/01/17 15:32 97.8 79 20 107/66 98 05/01/17 12:00 Room Air Intake and Output 04/30/17 04/30/17 05/01/17 15:00 23:00 07:00 Intake Total 1100 ml Balance 1100 ml Exam Constitutional: alert ,awake, no acute distress Head: atraumatic, normocephalic Eyes: EOMI, PERRL Respiratory: clear to auscultation, normal air movement Cardiovascular: nl pulses, regular rate and rhythm Gastrointestinal: soft, tender Extremities: normal pulses Results Result Diagram: 05/01/17 0653 05/01/17 0653 Results 24 hrs Laboratory Tests Test 05/01/17 06:53 White Blood Count 8.2 Red Blood Count 3.89 L Hemoglobin 7.9 L Hematocrit 26.6 L Mean Corpuscular Volume 68.4 L Mean Corpuscular Hemoglobin 20.3 L Mean Corpuscular Hemoglobin Concent 29.7 L Red Cell Distribution Width 19.0 H Platelet Count 395 Mean Platelet Volume 10.5 H Neutrophils % 61.2 Lymphocytes % 30.2 Monocytes % 5.4 Eosinophils % 2.1 Basophils % 0.9 Nucleated Red Blood Cells % 0.0 Neutrophils # 5.0 Lymphocytes # 2.5 Monocytes # 0.4 Eosinophils # 0.2 Basophils # 0.1 Nucleated Red Blood Cells # 0.0 Sodium Level 140 Potassium Level 3.8 Chloride Level 105 Carbon Dioxide Level 27 Anion Gap 12 Blood Urea Nitrogen 6 L Creatinine 0.85 Glucose Level 114 Calcium Level 8.7 Medications Medications Current Medications Ondansetron HCl 4 mg 4 mg Q6H PRN IV NAUSEA AND/OR VOMITING Last administered on 05/01/17 14:07; Admin Dose 4 MG; Start 04/30/17 at 07:30 Dextrose/Sodium Chloride (D5-1/2ns) 1,000 ml @ 100 mls/hr Q10H IV Last administered on 05/01/17 14:04; Admin Dose 100 MLS/HR; Start 04/30/17 at 07:30 Morphine Sulfate (morphine) 4 mg Q4H PRN IV pain; Start 04/30/17 at 11:30 Hydromorphone HCl (Dilaudid) 1 mg Q4H PRN IV PAIN Last administered on 14:07; Admin Dose 1 MG; Start 04/30/17 at 13:00 Pantoprazole (Protonix Iv) 40 mg BID@06,18 IV Last administered on 05/01/17 08 :56; Admin Dose 40 MG; Start 04/30/17 at 18:00 LARISSA BRAY MD May 01, 2017 15:49
--- NOTE | 2017-05-01 17:31 | OPPN ---
Date/Time of Note Date/Time of Note DATE: 05/01/17 TIME: 17:25 Proc Note GI Procedure Date 05/01/17 Pre-procedure Diagnosis * Hematemesis Post-procedure Diagnosis Assessment: * Moderate gastritis. Rule out H. pylori infection. Biopsies obtained Plan: * PPI therapy i.e. Protonix 40 mg daily * Advance diet as tolerated * Review pathology as soon as available Procedure Performed: Endoscopy (Biopsies) Surgeon WILL WALLS MD Director Of Global Sales none Anesthesia Type: MAC Anesthesiologist: SARTHAK RODRIGUEZ MD EBL none Transfusion required none Biopsy 1: Gastric body and antrum Grafts/Implants none Complication(s) none Pt Condition post procedure: stable Disposition: PACU Indications: other Procedure Description After informed consent, with the patient/relatives understanding the procedure, its indications, potential risks and complications, including but not limited to : allergic reaction, bleeding, perforation or infection, and after all pertinent questions were answered to the patients satisfaction, the patient/ relatives signed witnessed informed consent. Following this, premedication was administered slowly IV push under careful cardiovascular and respiratory monitoring with pulse oximetry, automatic blood pressure, and awake overnight monitor. Once the sedative effect was achieved the patient was place in the left lateral decubitus, the panendoscope was introduced and advanced under visual control. Careful examination of the upper gastrointestinal tract, both on insertion as well as withdrawal of the instrument disclosing the following findings: ESOPHAGUS: the mucosa of the entire esophagus was carefully examined and showed the following findings: the mucosa appears within normal limits. There is no evidence of esophagitis, varices, neoplasm, or stricture. No Hiatal Hernia identified. STOMACH: Upon entrance to the stomach air was insufflated, the gastric varghese distended normally. The mucosa of the fundus, body and antrum of the stomach was carefully examined both head-on and on retroflexion, and showed the following findings: There is moderate erythema and edema of the mucosa of the antrum. Biopsies were obtained to rule out H. pylori infection. Otherwise the mucosa appears within normal limits with no abnormalities. There is no evidence of ulcers or neoplasm. PYLORUS: The pylorus was carefully examined and showed the following findings: the pylorus appears patent and within normal limits, with no evidence of gastric outlet obstruction. DUODENUM: The duodenal mucosa was carefully examined in the duodenal bulb as well as the second portion of the duodenum and showed the following findings: the mucosa appears unremarkable with no evidence of duodenitis, ulcer or neoplasm. Copies To: CC: SARTHAK RODRIGUEZ MD, MORDO MD May 01, 2017 17:31
[2017-05-02] VITALS (12 sets, daily range): BP systolic 96–114; BP diastolic 60–70; PULSE 64–84; RESP 16–20
[2017-05-02] MEDS: morphine 4 MG/ML VIAL IV PRN ×3 (01:31→15:42)
[2017-05-02] MEDS: DEXTROSE 5%-0.45% NACL 1,000 ML IV SCH ×3 (01:32→19:30)
[2017-05-02] MEDS: PANTOPRAZOLE 40 MG INJ IV SCH (06:31)
[2017-05-02 07:11] LABS: BASOPHIL # 0.1 10^3/ul (0.0-0.1); BASOPHILS % 0.9 % (0.0-2.0); EOSINOPHILS # 0.2 10^3/ul (0.0-0.5); EOSINOPHILS % 2.3 % (0.0-7.0); HEMATOCRIT 27.3 % (37.0-47.0); HEMOGLOBIN 8.3 g/dl (12.0-16.0); LYMPHOCYTES % 34.5 % (15.0-51.0); MEAN CORPUSCULAR HEMOGLOBIN 20.3 pg (29.0-33.0); MEAN CORPUSCULAR HGB CONC 30.4 g/dl (32.0-37.0); MEAN CORPUSCULAR VOLUME 66.9 fl (82.0-101.0); MEAN PLATELET VOLUME 10.7 fl (7.4-10.4); MONOCYTE # 0.5 10^3/ul (0.3-0.9); MONOCYTES % 5.8 % (0.0-11.0); NEUTROPHIL # 4.8 10^3/ul (1.6-7.5); NEUTROPHILS % 56.3 % (39.0-77.0); PLATELET COUNT 446 10^3/UL (140-415); RED BLOOD COUNT 4.08 10^6/ul (4.20-5.40); RED CELL DISTRIBUTION WIDTH 18.4 % (11.5-14.5); WHITE BLOOD COUNT 8.6 10^3/ul (4.8-10.8)
[2017-05-02 07:44] LABS: ALBUMIN 3.6 g/dl (3.3-4.9); ALBUMIN/GLOBULIN RATIO 0.9; BILIRUBIN,INDIRECT 0.2 mg/dl (0-1.1); BILIRUBIN,TOTAL 0.2 mg/dl (0.2-1.3); CALCIUM 8.7 mg/dl (8.4-10.2); CREATININE 0.85 mg/dl (0.44-1.00); POTASSIUM 3.6 mmol/L (3.5-5.1); TOTAL PROTEIN 7.6 g/dl (6.1-8.1)
--- NOTE | 2017-05-02 14:56 | PN ---
Date/Time of Note Date/Time of Note DATE: 05/02/17 TIME: 14:47 Assessment/Plan VTE Prophylaxis VTE Prophylaxis Intervention: SCD's Lines/Catheters IV Catheter Type (from [facility]): Peripheral IV Urinary Cath still in place: No Assessment/Plan Chief Complaint/Hosp Course Assessment and plan 1. Hematemesis.. Continue on PPI medication. Patient status post EGD with brushing and biopsy. Will follow up with results. 2. AK I.. improved with IVF. 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 d/c when medically stable and cleared by consultants Discussed plan of care with Dr. Resendiz Problems: Subjective 24 Hr Interval Summary Free Text/Dictation reports still having some mild abd discomfort Exam/Review of Systems Vital Signs Vitals Vital Signs Date Time Temp Pulse Resp B/P Pulse Ox O2 Delivery O2 Flow Rate FiO2 05/02/17 12:09 72 05/02/17 11:54 98.5 20 112/66 99 05/02/17 06:47 Nasal Cannula 2 Intake and Output 05/01/17 05/01/17 05/02/17 15:00 23:00 07:00 Intake Total 1000 ml 900 ml Balance 1000 ml 900 ml Exam Constitutional: alert, oriented Psych: nl mood/affect Head: normocephalic Neck: supple Respiratory: clear to auscultation, normal air movement Cardiovascular: regular rate and rhythm Gastrointestinal: soft, tender Musculoskeletal: nl extremities to inspection 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 intact, nl mental status, nl speech Skin: nl turgor Results Result Diagram: 05/02/17 0628 05/02/17 0630 Results 24 hrs Laboratory Tests Test 05/02/17 06:28 05/02/17 06:30 White Blood Count 8.6 Red Blood Count 4.08 L Hemoglobin 8.3 L Hematocrit 27.3 L Mean Corpuscular Volume 66.9 L Mean Corpuscular Hemoglobin 20.3 L Mean Corpuscular Hemoglobin Concent 30.4 L Red Cell Distribution Width 18.4 H Platelet Count 446 H Mean Platelet Volume 10.7 H Neutrophils % 56.3 Lymphocytes % 34.5 Monocytes % 5.8 Eosinophils % 2.3 Basophils % 0.9 Nucleated Red Blood Cells % 0.0 Neutrophils # 4.8 Lymphocytes # 3.0 H Monocytes # 0.5 Eosinophils # 0.2 Basophils # 0.1 Nucleated Red Blood Cells # 0.0 Sodium Level 139 Potassium Level 3.6 Chloride Level 104 Carbon Dioxide Level 29 Anion Gap 10 Blood Urea Nitrogen 5 L Creatinine 0.85 Glucose Level 109 Calcium Level 8.7 Total Bilirubin 0.2 Direct Bilirubin 0.00 Indirect Bilirubin 0.2 Aspartate Amino Transf (AST/SGOT) 65 H Alanine Aminotransferase (ALT/SGPT) 53 Alkaline Phosphatase 103 Total Protein 7.6 Albumin 3.6 Globulin 4.00 H Albumin/Globulin Ratio 0.90 Medications Medications Current Medications Ondansetron HCl 4 mg 4 mg Q6H PRN IV NAUSEA AND/OR VOMITING Last administered on 05/01/17 22:13; Admin Dose 4 MG; Start 04/30/17 at 07:30 Dextrose/Sodium Chloride (D5-1/2ns) 1,000 ml @ 100 mls/hr Q10H IV Last administered on 05/02/17 09:41; Admin Dose 100 MLS/HR; Start 04/30/17 at 07:30 Morphine Sulfate (morphine) 4 mg Q4H PRN IV pain Last administered on 10:10; Admin Dose 4 MG; Start 04/30/17 at 11:30 Hydromorphone HCl (Dilaudid) 1 mg Q4H PRN IV PAIN Last administered on 20:00; Admin Dose 1 MG; Start 04/30/17 at 13:00 Pantoprazole (Protonix Tab) 40 mg BID@06,18 PO ; Start 05/02/17 at 18:00 [place] [employer]ICE May 02, 2017 14:56
--- NOTE | 2017-05-02 17:55 | PN ---
Date/Time of Note Date/Time of Note DATE: 05/02/17 TIME: 17:51 Assessment/Plan VTE Prophylaxis VTE Prophylaxis Intervention: SCD's Lines/Catheters IV Catheter Type (from Nrsg): Peripheral IV Urinary Cath still in place: No Assessment/Plan Assessment/Plan Assessment * Anemia * Abdominal pain Plan continue present medications case discussed with Dr Davis Further orders will depend on clinical course Subjective 24 Hr Interval Summary Free Text/Dictation * Course reviwed with RN * patient seen and examined * No untoward incident overnight Exam/Review of Systems Vital Signs Vitals Vital Signs Date Time Temp Pulse Resp B/P Pulse Ox O2 Delivery O2 Flow Rate FiO2 05/02/17 16:38 83 05/02/17 15:58 98.7 20 108/66 98 05/02/17 06:47 Nasal Cannula 2 Intake and Output 05/01/17 05/01/17 05/02/17 15:00 23:00 07:00 Intake Total 1000 ml 900 ml Balance 1000 ml 900 ml Exam Constitutional: alert, oriented Neck: non-tender, supple Respiratory: clear to auscultation, normal air movement Cardiovascular: nl pulses, regular rate and rhythm Musculoskeletal: nl extremities to inspection, nl gait and stance Extremities: normal pulses Neurological: nl mental status Results Result Diagram: 05/02/17 0628 05/02/17 0630 Results 24 hrs Laboratory Tests Test 05/02/17 06:28 05/02/17 06:30 White Blood Count 8.6 Red Blood Count 4.08 L Hemoglobin 8.3 L Hematocrit 27.3 L Mean Corpuscular Volume 66.9 L Mean Corpuscular Hemoglobin 20.3 L Mean Corpuscular Hemoglobin Concent 30.4 L Red Cell Distribution Width 18.4 H Platelet Count 446 H Mean Platelet Volume 10.7 H Neutrophils % 56.3 Lymphocytes % 34.5 Monocytes % 5.8 Eosinophils % 2.3 Basophils % 0.9 Nucleated Red Blood Cells % 0.0 Neutrophils # 4.8 Lymphocytes # 3.0 H Monocytes # 0.5 Eosinophils # 0.2 Basophils # 0.1 Nucleated Red Blood Cells # 0.0 Sodium Level 139 Potassium Level 3.6 Chloride Level 104 Carbon Dioxide Level 29 Anion Gap 10 Blood Urea Nitrogen 5 L Creatinine 0.85 Glucose Level 109 Calcium Level 8.7 Total Bilirubin 0.2 Direct Bilirubin 0.00 Indirect Bilirubin 0.2 Aspartate Amino Transf (AST/SGOT) 65 H Alanine Aminotransferase (ALT/SGPT) 53 Alkaline Phosphatase 103 Total Protein 7.6 Albumin 3.6 Globulin 4.00 H Albumin/Globulin Ratio 0.90 Medications Medications Current Medications Ondansetron HCl 4 mg 4 mg Q6H PRN IV NAUSEA AND/OR VOMITING Last administered on 05/01/17 22:13; Admin Dose 4 MG; Start 04/30/17 at 07:30 Dextrose/Sodium Chloride (D5-1/2ns) 1,000 ml @ 100 mls/hr Q10H IV Last administered on 05/02/17 09:41; Admin Dose 100 MLS/HR; Start 04/30/17 at 07:30 Morphine Sulfate (morphine) 4 mg Q4H PRN IV pain Last administered on 15:42; Admin Dose 4 MG; Start 04/30/17 at 11:30 Hydromorphone HCl (Dilaudid) 1 mg Q4H PRN IV PAIN Last administered on 20:00; Admin Dose 1 MG; Start 04/30/17 at 13:00 Pantoprazole (Protonix Tab) 40 mg BID@06,18 PO ; Start 05/02/17 at 18:00 JENNIFER DUNHAM NP May 02, 2017 17:55
[2017-05-02] MEDS: PANTOPRAZOLE (EC) 40 MG TAB PO SCH (19:05)
[2017-05-02] MEDS: HYDROmorphONE 1 MG/ML SYG IV PRN (22:48)
[2017-05-03] VITALS (12 sets, daily range): BP systolic 97–122; BP diastolic 55–80; PULSE 60–83; RESP 16–20
[2017-05-03] MEDS: PANTOPRAZOLE (EC) 40 MG TAB PO SCH ×2 (05:26→17:00)
[2017-05-03] MEDS: morphine 4 MG/ML VIAL IV PRN ×3 (05:26→16:51)
[2017-05-03] MEDS: DEXTROSE 5%-0.45% NACL 1,000 ML IV SCH ×2 (05:27→16:47)
[2017-05-03 07:56] LABS: ABNORMAL IP MESSAGE 1; BASOPHIL # 0.1 10^3/ul (0.0-0.1); BASOPHILS % 1.1 % (0.0-2.0); EOSINOPHILS # 0.3 10^3/ul (0.0-0.5); EOSINOPHILS % 3.9 % (0.0-7.0); HEMATOCRIT 30.2 % (37.0-47.0); HEMOGLOBIN 8.7 g/dl (12.0-16.0); LYMPHOCYTES % 34.5 % (15.0-51.0); MEAN CORPUSCULAR HEMOGLOBIN 19.5 pg (29.0-33.0); MEAN CORPUSCULAR HGB CONC 28.8 g/dl (32.0-37.0); MEAN CORPUSCULAR VOLUME 67.6 fl (82.0-101.0); MEAN PLATELET VOLUME 10.6 fl (7.4-10.4); MONOCYTE # 0.5 10^3/ul (0.3-0.9); MONOCYTES % 6.1 % (0.0-11.0); NEUTROPHIL # 4.7 10^3/ul (1.6-7.5); NEUTROPHILS % 54.1 % (39.0-77.0); PLATELET COUNT 435 10^3/UL (140-415); RED BLOOD COUNT 4.47 10^6/ul (4.20-5.40); RED CELL DISTRIBUTION WIDTH 19.1 % (11.5-14.5); WHITE BLOOD COUNT 8.7 10^3/ul (4.8-10.8)
[2017-05-03 08:00] LABS: POSITIVE DIFF @See below
[2017-05-03 08:21] LABS: CALCIUM 8.9 mg/dl (8.4-10.2); CREATININE 0.76 mg/dl (0.44-1.00); POTASSIUM 3.7 mmol/L (3.5-5.1)
--- NOTE | 2017-05-03 12:26 | PN ---
Date/Time of Note Date/Time of Note DATE: 05/03/17 TIME: 12:21 Assessment/Plan VTE Prophylaxis VTE Prophylaxis Intervention: SCD's Lines/Catheters IV Catheter Type (from Nrsg): Peripheral IV Urinary Cath still in place: No Assessment/Plan Chief Complaint/Hosp Course Assessment and plan 1. Hematemesis.. Continue on PPI medication. Patient status post EGD with brushing and biopsy. awaiting results 2. AK I.. improved with IVF. will monitor 3. Abdominal pain. not improved. Will follow up with imaging. Disposition plan: Follow-up with emergency department physician and biopsy results. Check abd imaging for abd pain. continue inpatient monitoring Discussed plan of care with Dr. Resendiz Problems: Subjective 24 Hr Interval Summary Free Text/Dictation still reports having abd pain 8 out of 10 Exam/Review of Systems Vital Signs Vitals Vital Signs Date Time Temp Pulse Resp B/P Pulse Ox O2 Delivery O2 Flow Rate FiO2 05/03/17 12:10 73 05/03/17 12:03 98.0 20 122/80 100 05/03/17 05:32 Room Air 05/02/17 06:47 2 Intake and Output 05/02/17 05/02/17 05/03/17 14:59 22:59 06:59 Intake Total 1350 ml Balance 1350 ml Exam Constitutional: alert, oriented Psych: anxious Head: normocephalic Neck: supple Respiratory: clear to auscultation, normal air movement Cardiovascular: regular rate and rhythm Gastrointestinal: soft, tender Musculoskeletal: nl extremities to inspection Neurological: [employer]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, nl mental status, nl speech Skin: nl turgor Results Result Diagram: 05/03/17 0713 05/03/17 0713 Results 24 hrs Laboratory Tests Test 05/03/17 07:13 White Blood Count 8.7 Red Blood Count 4.47 Hemoglobin 8.7 L Hematocrit 30.2 L Mean Corpuscular Volume 67.6 L Mean Corpuscular Hemoglobin 19.5 L Mean Corpuscular Hemoglobin Concent 28.8 L Red Cell Distribution Width 19.1 H Platelet Count 435 H Mean Platelet Volume 10.6 H Neutrophils % 54.1 Lymphocytes % 34.5 Monocytes % 6.1 Eosinophils % 3.9 Basophils % 1.1 Nucleated Red Blood Cells % 0.0 Neutrophils # 4.7 Lymphocytes # 3.0 H Monocytes # 0.5 Eosinophils # 0.3 Basophils # 0.1 Nucleated Red Blood Cells # 0.0 Sodium Level 137 Potassium Level 3.7 Chloride Level 104 Carbon Dioxide Level 27 Anion Gap 10 Blood Urea Nitrogen 10 Creatinine 0.76 Glucose Level 103 Calcium Level 8.9 Medications Medications Current Medications Ondansetron HCl 4 mg 4 mg Q6H PRN IV NAUSEA AND/OR VOMITING Last administered on 05/01/17 22:13; Admin Dose 4 MG; Start 04/30/17 at 07:30 Dextrose/Sodium Chloride (D5-1/2ns) 1,000 ml @ 100 mls/hr Q10H IV Last administered on 05/03/17 05:27; Admin Dose 100 MLS/HR; Start 04/30/17 at 07:30 Morphine Sulfate (morphine) 4 mg Q4H PRN IV pain Last administered on 10:59; Admin Dose 4 MG; Start 04/30/17 at 11:30 Hydromorphone HCl (Dilaudid) 1 mg Q4H PRN IV PAIN Last administered on 22:48; Admin Dose 1 MG; Start 04/30/17 at 13:00 Pantoprazole (Protonix Tab) 40 mg BID@06,18 PO Last administered on 05/03/17 05:26; Admin Dose 40 MG; Start 05/02/17 at 18:00 [place] [employer] May 03, 2017 12:26
[2017-05-03] MEDS ORDERED: BARIUM SULF 2% 450 ML BTL (BERRY SMOOTHIE) PO ONE (13:30)
[2017-05-03] MEDS: HYDROmorphONE 1 MG/ML SYG IV PRN (21:25)
[2017-05-04] VITALS (11 sets, daily range): BP systolic 99–114; BP diastolic 50–73; PULSE 72–78; RESP 18–20
[2017-05-04] MEDS: DEXTROSE 5%-0.45% NACL 1,000 ML IV SCH ×3 (01:30→15:07)
[2017-05-04] MEDS: morphine 4 MG/ML VIAL IV PRN ×3 (03:52→17:22)
[2017-05-04] MEDS: PANTOPRAZOLE (EC) 40 MG TAB PO SCH ×2 (06:07→18:13)
[2017-05-04 08:18] LABS: BASOPHIL # 0.1 10^3/ul (0.0-0.1); BASOPHILS % 1.2 % (0.0-2.0); EOSINOPHILS # 0.3 10^3/ul (0.0-0.5); EOSINOPHILS % 3.6 % (0.0-7.0); HEMATOCRIT 29.3 % (37.0-47.0); HEMOGLOBIN 8.6 g/dl (12.0-16.0); LYMPHOCYTES # 3.1 10^3/ul (0.8-2.9); LYMPHOCYTES % 34.3 % (15.0-51.0); MEAN CORPUSCULAR HEMOGLOBIN 19.7 pg (29.0-33.0); MEAN CORPUSCULAR HGB CONC 29.4 g/dl (32.0-37.0); MEAN PLATELET VOLUME 10.9 fl (7.4-10.4); MONOCYTE # 0.6 10^3/ul (0.3-0.9); MONOCYTES % 6.2 % (0.0-11.0); NEUTROPHIL # 4.9 10^3/ul (1.6-7.5); NEUTROPHILS % 54.3 % (39.0-77.0); PLATELET COUNT 472 10^3/UL (140-415); RED BLOOD COUNT 4.37 10^6/ul (4.20-5.40); RED CELL DISTRIBUTION WIDTH 18.6 % (11.5-14.5)
[2017-05-04 08:47] LABS: CALCIUM 8.9 mg/dl (8.4-10.2); CREATININE 0.69 mg/dl (0.44-1.00); POTASSIUM 3.8 mmol/L (3.5-5.1)
--- NOTE | 2017-05-04 13:41 | PN ---
Date/Time of Note Date/Time of Note DATE: 05/04/17 TIME: 13:41 Assessment/Plan VTE Prophylaxis VTE Prophylaxis Intervention: SCD's Lines/Catheters IV [facility] Type [facility]): Peripheral IV Urinary Cath still in place: No Assessment/Plan Chief Complaint/Hosp Course 1. Hematemesis. Resolved. Status post esophagogastroduodenoscopy that showed moderate gastritis. Continue proton pump inhibitor therapy. 2. Abdominal pain. Most probably secondary to underlying gastritis. Continue proton pump inhibitors. 3. Microcytic, hypochromic anemia. Most probably anemia of acute blood loss. Will obtain a coag panel and iron panel. 4. Fluids, electrolytes, and nutrition. Regular diet as tolerated. 5. DVT prophylaxis. Bilateral sequential compression devices. 6. Plan. Continue current management. Obtain a chest x-ray to evaluate the right posterior rib cage pain. Discussed with Dr. Almodovar. Problems: Subjective 24 Hr Interval Summary Free Text/Dictation Complains of abdominal pain. Denies any nausea vomiting. Tolerating oral intake. Exam/Review of Systems Vital Signs Vitals Vital Signs Date Time Temp Pulse Resp B/P Pulse Ox O2 Delivery O2 Flow Rate FiO2 05/04/17 12:13 76 05/04/17 11:59 98.1 20 99/52 98 05/03/17 08:15 Nasal Cannula 2.0 Intake and Output 05/03/17 05/03/17 05/04/17 15:00 23:00 07:00 Intake Total 800 ml 1700 ml Balance 800 ml 1700 ml Exam General: Adequately build 36 year-old female lying in bed in no apparent distress. HEENT: Normocephalic, atraumatic. Eyes: Anicteric sclerae, conjunctivae clear. ENT: Nasal septum midline, oral mucosa moist. Neck supple, no JVD noticed. Respiratory: Bilaterally clear breath sounds. No use of accessory muscles of respiration. No adventitious breath sounds. Cardiovascular: S1, S2 heard. No murmurs or gallops. Abdomen: Soft and nondistended. Bowel sounds positive in all 4 quadrants. Right upper quadrant pain. Pain over the right posterior rib cage. Genitourinary: Deferred. Extremities: No cyanosis, no clubbing, no edema. Peripheral pulses palpable. Neurologic: Cranial nerves II through XII grossly intact. The patient is awake, alert, and oriented. Skin: Normal skin turgor. No skin rashes. Results Result Diagram: 05/04/1771605/04/17 07 Results 24 hrs Laboratory Tests Test 05/03/17 13:58 05/04/17 07:17 Lipase 315 H White Blood Count 9.0 Red Blood Count 4.37 Hemoglobin 8.6 L Hematocrit 29.3 L Mean Corpuscular Volume 67.0 L Mean Corpuscular Hemoglobin 19.7 L Mean Corpuscular Hemoglobin Concent 29.4 L Red Cell Distribution Width 18.6 H Platelet Count 472 H Mean Platelet Volume 10.9 H Neutrophils % 54.3 Lymphocytes % 34.3 Monocytes % 6.2 Eosinophils % 3.6 Basophils % 1.2 Nucleated Red Blood Cells % 0.0 Neutrophils # 4.9 Lymphocytes # 3.1 H Monocytes # 0.6 Eosinophils # 0.3 Basophils # 0.1 Nucleated Red Blood Cells # 0.0 Sodium Level 138 Potassium Level 3.8 Chloride Level 103 Carbon Dioxide Level 26 Anion Gap 13 Blood Urea Nitrogen 9 Creatinine 0.69 Glucose Level 109 Calcium Level 8.9 Medications Medications Current Medications Ondansetron HCl 4 mg 4 mg Q6H PRN IV NAUSEA AND/OR VOMITING Last administered on 05/01/17 22:13; Admin Dose 4 MG; Start 04/30/17 at 07:30 Dextrose/Sodium Chloride (D5-1/2ns) 1,000 ml @ 100 mls/hr Q10H IV Last administered on 05/04/17 03:55; Admin Dose 100 MLS/HR; Start 04/30/17 at 07:30 Morphine Sulfate (morphine) 4 mg Q4H PRN IV pain Last administered on 10:47; Admin Dose 4 MG; Start 04/30/17 at 11:30 Hydromorphone HCl (Dilaudid) 1 mg Q4H PRN IV PAIN Last administered on 21:25; Admin Dose 1 MG; Start 04/30/17 at 13:00 Pantoprazole (Protonix Tab) 40 mg BID@06,18 PO Last administered on 05/04/17 06:07; Admin Dose 40 MG; Start 05/02/17 at 18:00 NURYS SINGH NP May 04, 2017 13:41
[2017-05-04 14:18] LABS: IRON 23 ug/dl (35-150)
[2017-05-04 14:28] LABS: TOTAL IRON BINDING CAPACITY 390 ug/dl (241-421)
--- NOTE | 2017-05-04 16:41 | RADRPT ---
PROCEDURE: XR Chest. CLINICAL INDICATION: Right chest pain. TECHNIQUE: Single frontal view. COMPARISON: None. FINDINGS: There is mild linear atelectasis or scarring at the left lung base. The lungs are otherwise clear. The heart size is normal. There is no pleural effusion. There is no pneumothorax. IMPRESSION: 1. Mild linear atelectasis or scarring at the left lung base. 2. Otherwise normal chest radiograph. RPTAT: QQ .Ariel Morales MD, MD Date Time Electronically viewed and signed by .Ariel Morales MD, MD on 05/04/2017 16:41 .R/
[2017-05-04] MEDS ORDERED: SOD FERRIC GLUC COMPLX 125 MG in SOD CHLORIDE 0.9% 100 ML IVPB SCH (17:00)
[2017-05-04] MEDS ORDERED: HYDROmorphONE 1 MG/ML SYG IV STA (20:02)
[2017-05-05 02:07] VITALS: BP 103/60; RESP 20
[2017-05-05] MEDS: morphine 4 MG/ML VIAL IV PRN ×2 (03:37→10:15)
[2017-05-05] MEDS: PANTOPRAZOLE (EC) 40 MG TAB PO SCH (06:17)
[2017-05-05 06:28] LABS: BASOPHIL # 0.1 10^3/ul (0.0-0.1); BASOPHILS % 1.3 % (0.0-2.0); EOSINOPHILS # 0.4 10^3/ul (0.0-0.5); EOSINOPHILS % 4.6 % (0.0-7.0); HEMATOCRIT 29.3 % (37.0-47.0); HEMOGLOBIN 8.7 g/dl (12.0-16.0); LYMPHOCYTES # 2.5 10^3/ul (0.8-2.9); LYMPHOCYTES % 29.8 % (15.0-51.0); MEAN CORPUSCULAR HGB CONC 29.7 g/dl (32.0-37.0); MEAN CORPUSCULAR VOLUME 67.2 fl (82.0-101.0); MEAN PLATELET VOLUME 10.9 fl (7.4-10.4); MONOCYTE # 0.6 10^3/ul (0.3-0.9); MONOCYTES % 6.9 % (0.0-11.0); NEUTROPHIL # 4.8 10^3/ul (1.6-7.5); NEUTROPHILS % 57.2 % (39.0-77.0); PLATELET COUNT 481 10^3/UL (140-415); RED BLOOD COUNT 4.36 10^6/ul (4.20-5.40); WHITE BLOOD COUNT 8.3 10^3/ul (4.8-10.8)
[2017-05-05 06:48] LABS: INR 1.02; PROTIME 13.4 Sec (12.2-14.2)
[2017-05-05 06:49] LABS: PARTIAL THROMBOPLASTIN TIME 30.9 Sec (25.0-35.0)
[2017-05-05 06:52] LABS: ALBUMIN 3.6 g/dl (3.3-4.9); ALBUMIN/GLOBULIN RATIO 0.94; CREATININE 0.66 mg/dl (0.44-1.00); POTASSIUM 3.8 mmol/L (3.5-5.1); TOTAL PROTEIN 7.4 g/dl (6.1-8.1)
[2017-05-05 07:01] LABS: CHOL/HDL RATIO 3.8 RATIO; CHOLESTEROL 152 mg/dl (100-200); HDL CHOLESTEROL 40 mg/dl (34-82); MAGNESIUM 1.7 mg/dl (1.7-2.5); PHOSPHORUS 4.1 mg/dl (2.5-4.9); TRIGLYCERIDES 200 mg/dl (0-149)
[2017-05-05 07:07] LABS: TROPONIN-I < 0.012 ng/ml (0.00-0.12)
[2017-05-05 07:36] VITALS: BP 98/54; RESP 18
[2017-05-05 07:53] LABS: AMYLASE 78 U/L (11-123)
[2017-05-05 14:48] VITALS: BP 107/72; PULSE 86; RESP 18
--- NOTE | 2017-05-05 14:55 | PDOCDIS ---
Discharge Instructions DIAGNOSIS Discharge Diagnosis Moderate gastritis. CONDITION Patient Condition: Stable HOME CARE INSTRUCTIONS: Diet Instructions: Regular FOLLOW UP/APPOINTMENTS Follow-up Plan Amado Barrera MD Specialty: Internal Medicine Office Address: [address] [place], [place] [id number] Office OTHER ORDERS: Other Orders: 1. Take a regular diet as tolerated. 2. Take medications as per prescription. Avoid taking NSAIDs (aspirin, ibuprofen, Advil, etc.) 3. Resume activities as tolerated. 4. Follow-up with your primary care physician in 1 week. If you do not have a primary care physician, please call Dr. Amado Brarera's office. NURYS SINGH NP May 05, 2017 14:55
[2017-05-05] MEDS ORDERED: PANT40TA3 PO (14:56)
[2017-05-05] MEDS ORDERED: FER325 PO (14:57)
--- NOTE | 2017-05-05 16:23 | DS ---
DATE OF ADMISSION: 04/30/2017 DATE OF DISCHARGE: 05/05/2017 FINAL DIAGNOSES: 1. Hematemesis, resolved, status post esophagogastroduodenoscopy that showed moderate gastritis. 2. Moderate gastritis. 3. Microcytic hypochromic anemia. 4. Iron deficiency. ENGINEERING SYSTEMS ANALYST: Dr. Rubens Davis, Gastroenterology. HOSPITAL COURSE: This is a 30-year-old female with no significant past medical history other than a remote history of chronic alcohol abuse who came to the emergency department complaining of abdominal pain and vomiting blood. The patient verbalized the abdominal pain as right upper quadrant in location with radiation to her back. The patient underwent a right upper quadrant ultrasound that showed a 6.5 mm right mid pole nephrolithiasis. CT scan of the abdomen and pelvis showed punctate nonobstructing left upper lobe renal calculus and left ovarian cyst. The patient had a hemoglobin of 8.6. The patient had some acute kidney injury also. Provided the patient's history of present illness and the diagnostic findings, a clinical decision was made to admit the patient to inpatient setting to have her further evaluated. The patient was admitted to inpatient telemetry floor. Gastroenterology consult was obtained. The patient was started on proton pump inhibitors. The patient was seen and evaluated by Gastroenterology. The patient underwent an esophagogastroduodenoscopy on 05/01/2017 that showed moderate gastritis. The patient's gastric biopsy was negative for any H. pylori. The patient was maintained on proton pump inhibitor therapy. The patient continued to have right upper quadrant pain. On further examination, this was located on her right rib cage. The patient underwent a chest x-ray to evaluate for any underlying fracture, this was negative. The patient's right upper quadrant/ribcage pain resolved over the course of her hospital stay. The patient was started on a diet and the patient was able tolerate a regular consistency diet without any significant gastrointestinal symptoms. The patient was incidentally noticed to have a hemoglobin A1c of 6.1. The patient also had evidence of iron deficiency. The patient was maintained on IV iron supplements. The patient did not require any blood transfusion during this hospitalization. The patient was stable to be discharged home. Hence the patient will be discharged home today. DISCHARGE DISPOSITION/PLAN: The patient will be discharged home today. The patient was instructed to take a regular, preferably low-cholesterol diet. The patient was instructed to take medications as per prescription. She was instructed to avoid taking NSAIDs. She was instructed to resume activities as tolerated. She was instructed to follow up with her primary care physician in 1 week and if she does not have a primary care physician, to please call Dr. Amado Barrera's office. The patient verbalized understanding of discharge instructions. DISCHARGE CONDITION: Stable. DISCHARGE MEDICATIONS: 1. Ferrous sulfate 325 mg by mouth twice day. 2. Protonix 40 mg by mouth daily. DIAGNOSTIC DATA AND PROCEDURES: 1. CT scan of the abdomen and pelvis on admission. Punctate nonobstructing left upper pole renal calculus, left ovarian cyst. 2. Gallbladder ultrasound. Possible 6.5 mm right mid pole nephrolithiasis. No evidence of hydronephrosis. Otherwise normal sonographic findings of right upper quadrant. No evidence of gallstones or cholecystitis. 3. Chest x-ray. Mild linear atelectasis or scarring at the left lung base. Otherwise normal chest radiograph. 4. Esophagogastroduodenoscopy on 05/01/2017 showing moderate gastritis. 5. Latest CBC, WBC 8.3, hemoglobin 8.7, hematocrit 29.3, and platelet count 481. 6. Latest BMP, sodium 138, potassium 3.8, chloride 104, carbon dioxide 26, anion gap 12, BUN 8, creatinine 0.6, glucose 132, and calcium 9.2. 7. Iron panel. Iron 23, TIBC 390, and iron saturation 6, and ferritin 6.1. 8. Fasting lipid panel, triglycerides 200, total cholesterol 152, LDL 72, and HDL 40. At this time, I would like to thank Dr. Davis for seeing the patient, doing the necessary procedures, and providing clinical recommendations. The case and management of this patient was fully discussed with Dr. Rosy Cespedes. Approximately 35 minutes were spent on the discharge process. Dictated By: Jono Allen NP /allison/ramona /Document#: [id number] CAM
== END 2017-05-05 16:30 | disposition home or self-care (01) | DRG 378 ==
LOC: E/R 21:41 → MS4 04-30 02:39 → MS2 05-04 22:47
PROVIDERS: ADMIT Internal Medicine; ATTEND Internal Medicine
PROC: 0DB68ZX Excision of Stomach, Via Natural or Artificial Opening Endoscopic, Diagnostic (ICD-10-PCS; principal; 2017-05-01 20:30)
DX: K92.0 Hematemesis (principal); N17.9 Acute kidney failure, unspecified; D62 Acute posthemorrhagic anemia; R10.11 Right upper quadrant pain; K29.70 Gastritis, unspecified, without bleeding; D50.9 Iron deficiency anemia, unspecified
CPT/HCPCS: 36415; 71010; 74176; 76705; 80048; 80053; 80061; 81003; 82150; 82728; 83036; 83540; 83690; 83735; 84100; 84439; 84443; 84484; 85025; 85610; 85730; 88305; 88312; 96374; 96375; 96376; C9113; J1170; J1885; J2250; J2270; J2405; J2916; J3010; J7030; J7042

== ENCOUNTER 2017-06-03 09:14 | Emergency (ER) | payer MEDICAID ==
[~2017-06-03] VITALS: Wt 84.1 kg
[~2017-06-03 09:14] MED LIST changes: -ACET500C5 PO; -CIPR500T4 PO; -DICY10CA60 PO; -HYDR-902 PO; -HYDR-906 PO; -IBUP-1542 PO; -METH500T PO; -METR500T PO; -NAPR-688 PO; -ONDA4TAB11 PO; -ONDA4TAB8 PO; +PANT40TA3 PO; -RANI150T9 PO; -TRAM50TA2 PO
[2017-06-03] MEDS ORDERED: ONDANSETRON (ODT) 4 MG TAB ODT STA (11:40)
[2017-06-03] MEDS ORDERED: HYDROCODONE/APAP (5/325) TAB PO ONE (12:00)
[2017-06-03 12:17] LABS: BASOPHIL # 0.1 10^3/ul (0.0-0.1); BASOPHILS % 0.8 % (0.0-2.0); EOSINOPHILS # 0.2 10^3/ul (0.0-0.5); EOSINOPHILS % 1.5 % (0.0-7.0); HEMOGLOBIN 9.9 g/dl (12.0-16.0); LYMPHOCYTES # 2.5 10^3/ul (0.8-2.9); LYMPHOCYTES % 21.9 % (15.0-51.0); MEAN CORPUSCULAR HEMOGLOBIN 21.2 pg (29.0-33.0); MEAN CORPUSCULAR VOLUME 70.7 fl (82.0-101.0); MEAN PLATELET VOLUME 10.5 fl (7.4-10.4); MONOCYTE # 0.8 10^3/ul (0.3-0.9); NEUTROPHIL # 7.8 10^3/ul (1.6-7.5); NEUTROPHILS % 68.4 % (39.0-77.0); PLATELET COUNT 339 10^3/UL (140-415); RED BLOOD COUNT 4.67 10^6/ul (4.20-5.40); RED CELL DISTRIBUTION WIDTH 20.5 % (11.5-14.5); WHITE BLOOD COUNT 11.4 10^3/ul (4.8-10.8)
--- NOTE | 2017-06-03 12:26 | RADRPT ---
PROCEDURE: Chest x-ray CLINICAL INDICATION: Cough TECHNIQUE: Chest single view COMPARISON: 05/04/2017 FINDINGS: The heart is normal in size. The pulmonary vessels are normal in caliber. The lungs are clear. Th e costophrenic angles are sharp. The visualized bony thorax is unremarkable. IMPRESSION: No acute cardiopulmonary disease. RPTAT: HH .James Garcia MD, Date Time Electronically viewed and signed by .James Garcia MD, MD on 06/03/2017 12:26 .W/
[2017-06-03] MEDS ORDERED: ONDANSETRON 4 MG INJ IV STA (12:38)
[2017-06-03] MEDS ORDERED: morphine 4 MG/ML VIAL IV STA (12:38)
[2017-06-03] MEDS ORDERED: SOD CHLORIDE 0.9% 1,000 ML IV STA (12:38)
[2017-06-03 12:39] LABS: UR RBC 1 /HPF (0-5)
[2017-06-03 12:43] LABS: ALBUMIN 4.4 g/dl (3.3-4.9); ALBUMIN/GLOBULIN RATIO 1.02; BILIRUBIN,INDIRECT 0.2 mg/dl (0-1.1); BILIRUBIN,TOTAL 0.2 mg/dl (0.2-1.3); CALCIUM 9.6 mg/dl (8.4-10.2); CREATININE 1.19 mg/dl (0.44-1.00); TOTAL PROTEIN 8.7 g/dl (6.1-8.1)
[2017-06-03 12:48] LABS: ADD UMIC YES; UR ASCORBIC ACID NEGATIVE (NEGATIVE); UR BACTERIA FEW /HPF (NONE SEEN); UR BILIRUBIN (Dip) NEGATIVE (NEGATIVE); UR BLOOD (Dip) 1+ mg/dL (NEGATIVE); UR CLARITY CLEAR (CLEAR); UR COLOR YELLOW (YELLOW); UR GLUCOSE (Dip) NEGATIVE (NEGATIVE); UR KETONES (Dip) NEGATIVE (NEGATIVE); UR LEUKOCYTE ESTERASE (Dip) NEGATIVE Leu/ul (NEGATIVE); UR NITRITE (Dip) NEGATIVE (NEGATIVE); UR SPECIFIC GRAVITY (Dip) 1.013 (1.003-1.030); UR SQUAMOUS EPITHELIAL CELL FEW /HPF (FEW); UR TOTAL PROTEIN (Dip) NEGATIVE (NEGATIVE); UR UROBILINOGEN (Dip) NEGATIVE (NEGATIVE)
[2017-06-03] MEDS ORDERED: PANTOPRAZOLE 40 MG INJ IV STA (13:02)
--- NOTE | 2017-06-03 13:18 | RADRPT ---
PROCEDURE: US Abdomen. CLINICAL INDICATION: abdominal pain TECHNIQUE: Multiple real-time images were acquired of the patient's right upper quadrant abdomen a nd retroperitoneum utilizing a high resolution transducer. COMPARISON: 04/29/17, 04/30/17 FINDINGS: The liver demonstrates normal echogenicity. The liver is normal in size and no focal solid lesions are seen. The liver measures 14.6 cm in length. The portal vein is patent with normal direction of f low. No intrahepatic biliary dilatation is seen. No gallstones are identified within the gallbladder. There is no pericholecystic fluid or gallbladd er wall thickening. The common bile duct measures 4 mm in maximal dimension. The pancreas is not seen due to overlying bowel gas. No free fluid is identified. The right kidney is normal in size, and demonstrate normal echogenicity and cortical thickness. The right kidney measures 11.1 cm in long dimension. There is no evidence of hydronephrosis. There are no kidney stones. RPTAT: AA IMPRESSION: Unremarkable right upper quadrant abdominal ultrasound. .Abiel Galdamez MD, Date Time Electronically viewed and signed by .Abiel Galdamez MD, on 06/03/2017 13:17 .S/
[2017-06-03] MEDS ORDERED: ONDA4TAB14 PO (13:39)
[2017-06-03] MEDS ORDERED: FER325 PO (13:39)
[2017-06-03] MEDS ORDERED: FAMO-96 PO (13:39)
[2017-06-03] MEDS ORDERED: OMEP20CA16 PO (13:39)
[2017-06-03] MEDS ORDERED: DOCU-144 PO (13:39)
--- NOTE | 2017-06-03 13:53 | ERD ---
ER Documentation Chief Complaint Date/Time DATE: 06/03/17 TIME: 13:46 Chief Complaint cough, back pain, bodyaches HPI Is a 36-year-old female with presenting to the emergency department complaining of moderate right upper quadrant abdominal pain to the back, nausea bilious nonbloody vomiting for the past month. Patient was evaluated at this facility 1 month prior to be seen and admitted for hematemesis. Patient had EGD and was diagnosed with moderate gastris, states that she was not discharged with any medications. She denies any fevers, diarrhea. Patient states that she also has a cough for the past 3 days. Shortness of breath, chest pain ROS All systems reviewed and are negative except as per history of present illness. Medications Home Meds Active Scripts Omeprazole* (Omeprazole*) 20 Mg Capsule., 20 MG PO DAILY, #20 Prov:JOVANNA BECKFORD PA-C 06/03/17 Famotidine* (Pepcid*) 20 Mg Tablet, 20 MG PO DAILY for 4 Days, TAB Prov:JOVANNA BECKFORD PA-C 06/03/17 Ondansetron (Ondansetron Odt) 4 Mg Tab.rapdis, 4 MG PO Q6H Y for NAUSEA AND/OR VOMITING, #20 TAB Prov:JOVANNA BECKFORD PA-C 06/03/17 Docusate Sodium* (Colace*) 100 Mg Capsule, 100 MG PO BID, #30 CAP Prov:JOVANNA BECKFORD PA-C 06/03/17 Ferrous Sulfate* (Ferrous Sulfate*) 325 Mg Tabec, 325 MG PO BID, #30 TAB Prov:JOVANNA BECKFORD PA-C 06/03/17 Ferrous Sulfate* (Ferrous Sulfate*) 325 Mg Tabec, 325 MG PO BID, #60 TAB Prov:NURYS SINGH NP 05/05/17 Pantoprazole* (Protonix*) 40 Mg Tablet., 40 MG PO DAILY, #30 TAB Prov:NURYS SINGH NP 05/05/17 Allergies Allergies: Coded Allergies: No Known Allergy (Unverified , 04/29/17) PMhx/Soc History of Surgery: Yes (appendix, x 2, ovarian cyst) Anesthesia Reaction: No Hx Neurological Disorder: No Hx Respiratory Disorders: No Hx Cardiac Disorders: No Hx Psychiatric Problems: No Hx Miscellaneous Medical Probl: No Hx Alcohol Use: No Hx Substance Use: No Hx Tobacco Use: No Smoking Status: Never smoker Physical Exam Vitals Vital Signs Date Time Temp Pulse Resp B/P Pulse Ox O2 Delivery O2 Flow Rate FiO2 06/03/17 09:16 98.0 97 20 121/75 97 Physical Exam GENERAL: well-developed/well-nourished, in no apparent distress, non-toxic appearing HENT: NC/AT, moist mucous membranes EYES: Conjunctiva normal NECK: Supple, no lymphadenopathy PULM: CTA bilaterally, no rales, rhonchi, or wheezing heard CV: Normal S1S2, RRR, good capillary refill GI: Soft, non-distended, tender to palpation right upper quadrant Normal bowel sounds, no masses or organomegaly felt on exam No gross peritonitis, no bruits Negative Rovsing, negative Pal[place], negative McBurney's point, Negative CVAT BACK: No masses EXT: No clubbing, cyanosis, or edema NEURO: Alert and Orientated SKIN: Intact, normal turgor PSYCH: Normal mood and mentation Result Diagram: 06/03/17 1202 06/03/17 1202 Results 24 hrs Laboratory Tests Test 06/03/17 12:00 06/03/17 12:02 Urine Color YELLOW Urine Clarity CLEAR Urine pH 5.0 Urine Specific [place] 1.013 Urine Ketones NEGATIVEmg/dL Urine Nitrite NEGATIVEmg/dL Urine Bilirubin NEGATIVEmg/dL Urine Urobilinogen NEGATIVEmg/dL Urine Leukocyte Esterase NEGATIVELeu/ul Urine Microscopic RBC 1/HPF Urine Microscopic WBC 1/HPF Urine Squamous Epithelial Cells FEW/HPF Urine Bacteria FEW/HPF Urine Hemoglobin 1+mg/dL Urine Glucose NEGATIVEmg/dL Urine Total Protein NEGATIVEmg/dl White Blood Count 11.410^3/ul Red Blood Count 4.6710^6/ul Hemoglobin 9.9g/dl Hematocrit 33.0% Mean Corpuscular Volume 70.7fl Mean Corpuscular Hemoglobin 21.2pg Mean Corpuscular Hemoglobin Concent 30.0g/dl Red Cell Distribution Width 20.5% Platelet Count 85227^3/UL Mean Platelet Volume 10.5fl Neutrophils % 68.4% Lymphocytes % 21.9% Monocytes % 7.0% Eosinophils % 1.5% Basophils % 0.8% Nucleated Red Blood Cells % 0.0/100WBC Neutrophils # 7.810^3/ul Lymphocytes # 2.510^3/ul Monocytes # 0.810^3/ul Eosinophils # 0.210^3/ul Basophils # 0.110^3/ul Nucleated Red Blood Cells # 0.010^3/ul Sodium Level 142mmol/L Potassium Level 4.0mmol/L Chloride Level 104mmol/L Carbon Dioxide Level 25mmol/L Anion Gap 17 Blood Urea Nitrogen 14mg/dl Creatinine 1.19mg/dl Glucose Level 93mg/dl Calcium Level 9.6mg/dl Total Bilirubin 0.2mg/dl Direct Bilirubin 0.00mg/dl Indirect Bilirubin 0.2mg/dl Aspartate Amino Transf (AST/SGOT) 40IU/L Alanine Aminotransferase (ALT/SGPT) 45IU/L Alkaline Phosphatase 133IU/L Total Protein 8.7g/dl Albumin 4.4g/dl Globulin 4.30g/dl Albumin/Globulin Ratio 1.02 Lipase 216U/L Current Medications Medications (Trade) Dose Ordered Sig/Morteza Route PRN Reason Start Time Stop Time Status Last Admin Dose Admin Ondansetron HCl (Zofran Odt) 4 mg ONCE STAT ODT 06/03/17 11:40 06/03/17 11:42 DC 06/03/17 12:00 Acetaminophen/ Hydrocodone Bitart 2 tab 2 tab ONCE ONCE PO 06/03/17 12:00 06/03/17 12:01 DC 06/03/17 12:00 Sodium Chloride (NS) 1,000 ml @ 1,000 mls/hr Q1H STAT IV 06/03/17 12:38 06/03/17 13:37 DC 06/03/17 12:46 Morphine Sulfate (morphine) 4 mg ONCE STAT IV 06/03/17 12:38 06/03/17 12:39 DC 06/03/17 12:46 Ondansetron HCl (Zofran Inj) 4 mg ONCE STAT IV 06/03/17 12:38 06/03/17 12:39 DC 06/03/17 12:46 Pantoprazole (Protonix Iv) 40 mg ONCE STAT IV 06/03/17 13:02 06/03/17 13:04 DC 06/03/17 13:16 Procedures/MDM This is a 36 year old female presenting to the emergency department with history of moderate gastritis that was diagnosed on EGD a month prior to being seen at this facility presents with right upper quadrant pain, nausea and nonbilious nonbloody vomiting. Patient is appropriate to be discharged home to follow-up with her primary care physician tomorrow. IV access established. Patient had evidence of microcytic anemia of hemoglobin 9.9, which has been since last visit 1 month ago. There was no evidence of significant leukocytosis. No evidence of liver or electrolyte abnormalities. No evidence of urinary tract infection. Gallbladder ultrasound was unremarkable. Patient was given 1 L of fluids, Zofran, Protonix and morphine, patient had improvement in pain stabilized in the ED. Patient was given prescription for Pepcid x 4 days , Prilosec for two weeks, ferrous sulfate, Colace. I have discussed this case with and he agrees with plan above. Strict return precautions were given, she understood and agreed with this Departure Diagnosis: Primary Impression: Gastritis Additional Impression: Microcytic anemia Condition: Stable Patient Instructions: Treating Gastritis, Gastritis (Adult), Gastritis Vs. Ulcer Additional Instructions: Visite a loza merle duran para un EXAMEN.Regrese a estas instalaciones si no se mejora niels esperbamos o niels le dijimos. [place] toda la medicina soto y niels se le indic. Regrese a estas instalaciones si no se mejora niels esperbamos o niels le dijimos. JOVANNA BECKFORD PA-C Jun 03, 2017 13:53
[2017-06-03 14:02] VITALS: BP 128/71; PULSE 79; RESP 20; TEMP 98.2
== END 2017-06-03 14:01 | disposition home or self-care (01) ==
LOC: FTE 09:14
DX: K29.70 Gastritis, unspecified, without bleeding (principal); D50.9 Iron deficiency anemia, unspecified
CPT/HCPCS: 71010; 76705; 80053; 81001; 83690; 85025; 96374; 96375; C9113; J2270; J2405; J7030; Z7502; Z7610

== ENCOUNTER 2017-06-12 09:25 | Emergency (ER) | payer MEDICAID ==
[~2017-06-12] VITALS: Wt 72.0 kg
[~2017-06-12 09:25] MED LIST changes: +DOCU-144 PO; +FAMO-96 PO; +OMEP20CA16 PO; +ONDA4TAB14 PO
[2017-06-12 09:27] VITALS: Wt 72.0 kg
[2017-06-12] MEDS ORDERED: ONDANSETRON 4 MG INJ IV STA (10:29)
[2017-06-12] MEDS ORDERED: morphine 4 MG/ML VIAL IV STA (10:29)
[2017-06-12] MEDS ORDERED: SOD CHLORIDE 0.9% 1,000 ML IV ONE (10:30)
[2017-06-12 11:04] LABS: BASOPHIL # 0.1 10^3/ul (0.0-0.1); BASOPHILS % 1.1 % (0.0-2.0); EOSINOPHILS # 0.4 10^3/ul (0.0-0.5); EOSINOPHILS % 4.1 % (0.0-7.0); HEMOGLOBIN 9.3 g/dl (12.0-16.0); LYMPHOCYTES # 3.5 10^3/ul (0.8-2.9); MEAN CORPUSCULAR HEMOGLOBIN 21.2 pg (29.0-33.0); MEAN CORPUSCULAR VOLUME 70.6 fl (82.0-101.0); MEAN PLATELET VOLUME 10.7 fl (7.4-10.4); MONOCYTE # 0.6 10^3/ul (0.3-0.9); MONOCYTES % 5.9 % (0.0-11.0); NEUTROPHIL # 4.7 10^3/ul (1.6-7.5); NEUTROPHILS % 50.7 % (39.0-77.0); PLATELET COUNT 393 10^3/UL (140-415); RED BLOOD COUNT 4.39 10^6/ul (4.20-5.40); RED CELL DISTRIBUTION WIDTH 20.1 % (11.5-14.5); WHITE BLOOD COUNT 9.3 10^3/ul (4.8-10.8)
[2017-06-12 11:07] LABS: ADD UMIC NO; UR ASCORBIC ACID NEGATIVE (NEGATIVE); UR BILIRUBIN (Dip) NEGATIVE (NEGATIVE); UR BLOOD (Dip) NEGATIVE (NEGATIVE); UR CLARITY CLEAR (CLEAR); UR COLOR YELLOW (YELLOW); UR GLUCOSE (Dip) NEGATIVE (NEGATIVE); UR KETONES (Dip) NEGATIVE (NEGATIVE); UR LEUKOCYTE ESTERASE (Dip) NEGATIVE Leu/ul (NEGATIVE); UR NITRITE (Dip) NEGATIVE (NEGATIVE); UR SPECIFIC GRAVITY (Dip) 1.012 (1.003-1.030); UR TOTAL PROTEIN (Dip) NEGATIVE (NEGATIVE); UR UROBILINOGEN (Dip) NEGATIVE (NEGATIVE)
--- NOTE | 2017-06-12 11:17 | RADRPT ---
PROCEDURE: US Abdomen. CLINICAL INDICATION: abdominal pain TECHNIQUE: Multiple real-time images were acquired of the patient's right upper quadrant abdomen a nd retroperitoneum utilizing a high resolution transducer. COMPARISON: US ABDOMEN 06/03/2017 FINDINGS: The study is suboptimal due to the patient's inability to cooperate. The liver is partially visualized. The liver demonstrates slightly increased echogenicity. The live r is normal in size and no focal solid lesions are seen. The liver measures 12.3 cm in length. The p ortal vein is patent with normal direction of flow. No intrahepatic biliary dilatation is seen. No gallstones are identified within the gallbladder. There is no pericholecystic fluid or gallbladd er wall thickening. The common bile duct measures 3 mm in maximal dimension. The visualized portions of the pancreas are unremarkable. The tail of the pancreas is not seen. No free fluid is identified. The right kidney is normal in size, and demonstrate normal echogenicity and cortical thickness. The right kidney measures 10.5 cm in long dimension. There is no evidence of hydronephrosis. There are no kidney stones. RPTAT: AA IMPRESSION: Mild fatty infiltration of the liver. No evidence of gallstones. .Abiel Galdamez MD, MD Date Time Electronically viewed and signed by .Abiel Galdamez MD, MD on 06/12/2017 11:17 .S/
[2017-06-12 11:28] LABS: ALANINE AMINOTRANSFERASE 45 IU/L (13-69); ALBUMIN 4.4 g/dl (3.3-4.9); ALBUMIN/GLOBULIN RATIO 1.18; ALKALINE PHOSPHATASE 117 IU/L (42-121); ANION GAP 14 (8-16); ASPARTATE AMINO TRANSFERASE 37 IU/L (15-46); BILIRUBIN,INDIRECT 0.2 mg/dl (0-1.1); BILIRUBIN,TOTAL 0.2 mg/dl (0.2-1.3); BLOOD UREA NITROGEN 10 mg/dl (7-20); CALCIUM 8.8 mg/dl (8.4-10.2); CARBON DIOXIDE 27 mmol/L (21-31); CHLORIDE 104 mmol/L (97-110); CREATININE 0.72 mg/dl (0.44-1.00); GLUCOSE 110 mg/dl (70-220); POTASSIUM 3.4 mmol/L (3.5-5.1); SODIUM 142 mmol/L (135-144); TOTAL PROTEIN 8.1 g/dl (6.1-8.1)
[2017-06-12 11:49] LABS: TROPONIN-I < 0.012 ng/ml (0.00-0.12)
[2017-06-12] MEDS ORDERED: LIDOCAINE/MYLANTA 40 ML BTL PO ONE (12:30)
[2017-06-12] MEDS ORDERED: FAMOTIDINE 20 MG INJ IV ONE (12:30)
[2017-06-12] MEDS ORDERED: DICY10CA60 PO (13:10)
[2017-06-12] MEDS ORDERED: MAG-19 PO (13:12)
[2017-06-12 13:40] VITALS: BP 120/83; PULSE 76; RESP 20; TEMP 98.7
--- NOTE | 2017-06-12 20:09 | ERD ---
ER Documentation Chief Complaint Chief Complaint r. sided abd pain, also c/o syncope yest and dizziness HPI 36-year-old female complaining of right upper quadrant abdominal pain as last night. She stated the pain is constant, sharp. She reports chills last night, but did not check her temperature at home. She had 4 episodes of vomiting. The vomitus is nonbloody and nonbilious. She reports feeling weak. She has this type of abdominal pains in the past, and was hospitalized 1 month ago. Was diagnosed with gastritis at that time. She has prescription of omeprazole and the ranitidine, but is not certain whether she takes them as prescribed for her gastritis. Denies shortness of breath. Denies chest pain or palpitations. Denies syncope. Denies diarrhea or constipation. Denies history of cholelithiasis. Patient has history of appendectomy. Denies any other medical history. ROS All systems reviewed and are negative except as per history of present illness. Medications Home Meds Active Scripts Magaldrate/Simethicone* (Mylanta*) 355 Ml Susp, 30 ML PO QID Y for GASTROINTESTINAL UPSET, #1 BOTTLE Prov:MONICO BUCRH. DRY PAN OPERATOR 06/12/17 Dicyclomine Hcl* (Bentyl*) 10 Mg Capsule, 10 MG PO QID Y for GASTROINTESTINAL UPSET, #20 CAP Prov:MONICO BURCH. NAYELI 06/12/17 Omeprazole* (Omeprazole*) 20 Mg Capsule.dr, 20 MG PO DAILY, #20 Prov:JOVANNA BECKFORD PA-C 06/03/17 Famotidine* (Pepcid*) 20 Mg Tablet, 20 MG PO DAILY for 4 Days, TAB Prov:JOVANNA BECKFORD PA-C 06/03/17 Ondansetron (Ondansetron Odt) 4 Mg Tab.rapdis, 4 MG PO Q6H Y for NAUSEA AND/OR VOMITING, #20 TAB Prov:JOVANNA BECKFORD PA-C 06/03/17 Docusate Sodium* (Colace*) 100 Mg Capsule, 100 MG PO BID, #30 CAP Prov:JOVANNA BECKFORD PA-C 06/03/17 Ferrous Sulfate* (Ferrous Sulfate*) 325 Mg Tabec, 325 MG PO BID, #30 TAB Prov:JOVANNA BECKFORD PA-C 06/03/17 Ferrous Sulfate* (Ferrous Sulfate*) 325 Mg Tabec, 325 MG PO BID, #60 TAB Prov:NURYS SINGH NP 05/05/17 Pantoprazole* (Protonix*) 40 Mg Tablet.dr, 40 MG PO DAILY, #30 TAB Prov:NURYS SINGH DRY PAN OPERATOR 05/05/17 Allergies Allergies: Coded Allergies: No Known Allergy (Unverified , 06/12/17) PMhx/Soc History of Surgery: Yes (appendix, x 2, ovarian cyst) Anesthesia Reaction: No Hx Neurological Disorder: No Hx Respiratory Disorders: No Hx Cardiac Disorders: No Hx Psychiatric Problems: No Hx Miscellaneous Medical Probl: No Hx Alcohol Use: No Hx Substance Use: No Hx Tobacco Use: No Smoking Status: Never smoker Physical Exam Vitals Vital Signs Date Time Temp Pulse Resp B/P Pulse Ox O2 Delivery O2 Flow Rate FiO2 06/12/17 13:40 98.7 76 20 120/83 100 Room Air 06/12/17 09:27 98.7 89 20 118/74 98 Physical Exam General: Well-developed, well-nourished, conscious and coherent, in no distress Skin: Warm and dry without rash, good texture and turgor Head: Normocephalic without evidence of trauma Eyes: Sclera and conjunctivae normal; pupils equal, round, and reactive to light; extraocular movements are intact Chest: Normal AP diameter. Good expansion without retractions. Nontender. Lungs are clear to auscultate bilaterally with good tidal volume Heart: Regular rate and rhythm. No murmur, rub, or gallops heard Abdomen: Soft, gastric and right upper quadrant tenderness without masses, guarding, or rebound. Bowel sounds are active. No hepatosplenomegaly Back: Without spinal or CVA tenderness Extremities: Full range of motion. Good strength bilaterally. No clubbing, cyanosis, or edema. Peripheral pulses are intact. Sensation intact Neuro: Alert and oriented 4, GCS 15. Cranial nerves grossly intact. Motor and sensory exams nonfocal. Moves all extremities. Speech clear. Gait normal Result Diagram: 06/12/17 1046 06/12/17 1046 Results 24 hrs Laboratory Tests Test 06/12/17 10:46 White Blood Count 9.310^3/ul Red Blood Count 4.3910^6/ul Hemoglobin 9.3g/dl Hematocrit 31.0% Mean Corpuscular Volume 70.6fl Mean Corpuscular Hemoglobin 21.2pg Mean Corpuscular Hemoglobin Concent 30.0g/dl Red Cell Distribution Width 20.1% Platelet Count 73137^3/UL Mean Platelet Volume 10.7fl Neutrophils % 50.7% Lymphocytes % 38.0% Monocytes % 5.9% Eosinophils % 4.1% Basophils % 1.1% Nucleated Red Blood Cells % 0.0/100WBC Neutrophils # 4.710^3/ul Lymphocytes # 3.510^3/ul Monocytes # 0.610^3/ul Eosinophils # 0.410^3/ul Basophils # 0.110^3/ul Nucleated Red Blood Cells # 0.010^3/ul Urine Color YELLOW Urine Clarity CLEAR Urine pH 6.0 Urine Specific [place] 1.012 Urine Ketones NEGATIVEmg/dL Urine Nitrite NEGATIVEmg/dL Urine Bilirubin NEGATIVEmg/dL Urine Urobilinogen NEGATIVEmg/dL Urine Leukocyte Esterase NEGATIVELeu/ul Urine Hemoglobin NEGATIVEmg/dL Urine Glucose NEGATIVEmg/dL Urine Total Protein NEGATIVEmg/dl Sodium Level 142mmol/L Potassium Level 3.4mmol/L Chloride Level 104mmol/L Carbon Dioxide Level 27mmol/L Anion Gap 14 Blood Urea Nitrogen 10mg/dl Creatinine 0.72mg/dl Glucose Level 110mg/dl Calcium Level 8.8mg/dl Total Bilirubin 0.2mg/dl Direct Bilirubin 0.00mg/dl Indirect Bilirubin 0.2mg/dl Aspartate Amino Transf (AST/SGOT) 37IU/L Alanine Aminotransferase (ALT/SGPT) 45IU/L Alkaline Phosphatase 117IU/L Troponin I < 0.012ng/ml Total Protein 8.1g/dl Albumin 4.4g/dl Globulin 3.70g/dl Albumin/Globulin Ratio 1.18 Lipase 152U/L Current Medications Medications (Trade) Dose Ordered Sig/Morteza Route PRN Reason Start Time Stop Time Status Last Admin Dose Admin Morphine Sulfate (morphine) 4 mg ONCE STAT IV 06/12/17 10:29 06/12/17 10:31 DC 06/12/17 10:52 Ondansetron HCl 4 mg 4 mg ONCE STAT IV 06/12/17 10:29 06/12/17 10:31 DC 06/12/17 10:52 Sodium Chloride (NS) 1,000 ml @ 1,000 mls/hr Q1H ONCE IV 06/12/17 10:30 06/12/17 11:29 DC 06/12/17 10:53 Miscellaneous Medication (Gi Cocktail (2)) 40 ml ONCE ONCE PO 06/12/17 12:30 06/12/17 12:31 DC 06/12/17 12:10 Famotidine (Pepcid Iv) 20 mg ONCE ONCE IV 06/12/17 12:30 06/12/17 12:31 DC 06/12/17 12:10 PROCEDURE: US Abdomen. CLINICAL INDICATION: abdominal pain TECHNIQUE: Multiple real-time images were acquired of the patient's right upper quadrant abdomen and retroperitoneum utilizing a high resolution transducer. COMPARISON: US ABDOMEN 06/03/2017 FINDINGS: The study is suboptimal due to the patient's inability to cooperate. The liver is partially visualized. The liver demonstrates slightly increased echogenicity. The liver is normal in size and no focal solid lesions are seen. The liver measures 12.3 cm in length. The portal vein is patent with normal direction of flow. No intrahepatic biliary dilatation is seen. No gallstones are identified within the gallbladder. There is no pericholecystic fluid or gallbladder wall thickening. The common bile duct measures 3 mm in maximal dimension. The visualized portions of the pancreas are unremarkable. The tail of the pancreas is not seen. No free fluid is identified. The right kidney is normal in size, and demonstrate normal echogenicity and cortical thickness. The right kidney measures 10.5 cm in long dimension. There is no evidence of hydronephrosis. There are no kidney stones. RPTAT: AA IMPRESSION: Mild fatty infiltration of the liver. No evidence of gallstones. .Abiel Galdamez MD, MD Date Time Electronically viewed and signed by .Abiel Galdamez MD, on 06/12/2017 11: 17 .S/ CC: EMMA TIAN MD Procedures/MDM 36-year-old female presented ED with epigastric and right upper quadrant abdominal pain since last night. CBC, CMP, lipase, and UA were obtained. CBC is noted for microcytic anemia with hemoglobin of 9.3. This is improved from 1 month ago. CMP, lipase, and UA are all negative. Gallbladder ultrasound was also obtained, mild fatty infiltration of liver is noted, no evidence of gallstones. Patient was given morphine and Zofran IV initially for pain. Patient reports no relief of pain after morphine. GI cocktail and Pepcid IV was then given to the patient. After that, patient appeared to be comfortable, states that the pain has relieved. I suspect the cause of patient's abdominal pain is gastritis. I also suspect that patient may not be taking omeprazole and ranitidine as prescribed. She advised to follow-up with her PCP. She also given a referral for sole painter. Patient appears well, stable for discharge and outpatient management. Medical decision making shared with patient and family. Education provided to patient and family. Patient and family expressed understanding of the plan. Medications on discharge: Mylanta, Bentyl. Follow-up: Primary care provider in 2-3 days or return to ED if worse. The case was reviewed and discussed with Dr. Tian, who agrees with the plan of care including labs, treatment, and advanced imaging as appropriate. Disclaimer: Inadvertent spelling and grammatical errors are likely due to EHR/ dictation software use and do not reflect on the overall quality of patient care. Also, please note that the electronic time recorded on this note does not necessarily reflect the actual time of the patient encounter. Departure Diagnosis: Primary Impression: Abdominal pain Condition: Stable Patient Instructions: Epigastric Pain (Uncertain Cause) Referrals: DENTON GUERRA (PCP) MARI RAMOS Additional Instructions: Llame al doctor DESTINI y jess gisselle RASHAAD PARA DENTRO DE 2-3 WELCH.Dgale a la secretaria que nosotros le instruimos hacer esta rashaad.Avise o llame si loaz condicin se empeora antes de la rashaad. Regresa aqui si peor o no mejor. MONICO BURCH NP Jun 12, 2017 20:04
== END 2017-06-12 13:41 | disposition home or self-care (01) ==
LOC: FTE 09:25
DX: R10.11 Right upper quadrant pain (principal)
CPT/HCPCS: 36415; 76705; 80053; 81003; 83690; 84484; 85025; 93005; 96374; 96375; J2270; J2405; J7030; Z7502; Z7610

== ENCOUNTER 2017-06-19 23:15 | Emergency (ER) | payer MEDICAID ==
[~2017-06-19] VITALS: Ht 162.6 cm; Wt 70.7 kg
[~2017-06-19 23:15] MED LIST changes: +DICY10CA60 PO; +MAG-19 PO
[2017-06-19 23:20] VITALS: Ht 162.6 cm; Wt 70.7 kg
[2017-06-19] MEDS ORDERED: ONDANSETRON 4 MG INJ IV STA (23:38)
[2017-06-19] MEDS ORDERED: morphine 4 MG/ML VIAL IV STA (23:38)
[2017-06-19] MEDS ORDERED: SOD CHLORIDE 0.9% 1,000 ML IV STA (23:38)
--- NOTE | 2017-06-20 00:04 | ERD ---
ER Documentation Chief Complaint Chief Complaint right upper abdominal pain radiating to back, with N/V started at 9pm HPI 36-year-old female with a history of gastritis presents with recurring right upper quadrant abdominal pain radiating to her back with nausea vomiting over the last 5 days. The patient describes severe pain that is diffuse, achy. She has not had any fevers or chills. Patient had labs and gallbladder ultrasound all unremarkable 5 days ago. ROS All systems reviewed and are negative except as per history of present illness. Medications Home Meds Active Scripts Hydrocodone/Acetaminophen ([place] 5-325 Tablet) 1 Each Tablet, 1 TAB PO Q6H Y for PAIN, #7 TAB Prov:EMMA CRAFT PA-C 06/20/17 Ranitidine Hcl* (Zantac*) 150 Mg Tablet, 150 MG PO BID Y for EPIGASTRIC PAIN, # 30 TAB Prov:EMMA CRAFT PA-C 06/20/17 Pantoprazole* (Protonix*) 40 Mg Tablet.dr, 40 MG PO DAILY, #30 TAB Prov:EMMA CRAFT PA-C 06/20/17 Magaldrate/Simethicone* (Mylanta*) 355 Ml Susp, 30 ML PO QID Y for GASTROINTESTINAL UPSET, #1 BOTTLE Prov:MONICO BURCH. C T TECH 06/12/17 Dicyclomine Hcl* (Bentyl*) 10 Mg Capsule, 10 MG PO QID Y for GASTROINTESTINAL UPSET, #20 CAP Prov:MONICO BURCH. C T TECH 06/12/17 Omeprazole* (Omeprazole*) 20 Mg Capsule., 20 MG PO DAILY, #20 Prov:JOVANNA BECKFORD PA-C 06/03/17 Famotidine* (Pepcid*) 20 Mg Tablet, 20 MG PO DAILY for 4 Days, TAB Prov:JOVANNA BECKFORD PA-C 06/03/17 Ondansetron (Ondansetron Odt) 4 Mg Tab.rapdis, 4 MG PO Q6H Y for NAUSEA AND/OR VOMITING, #20 TAB Prov:JOVANNA BECKFORD PA-C 06/03/17 Docusate Sodium* (Colace*) 100 Mg Capsule, 100 MG PO BID, #30 CAP Prov:JOVANNA BECKFORD PA-C 06/03/17 Ferrous Sulfate* (Ferrous Sulfate*) 325 Mg Tabec, 325 MG PO BID, #30 TAB Prov:JOVANNA BECKFORD PA-C 06/03/17 Ferrous Sulfate* (Ferrous Sulfate*) 325 Mg Tabec, 325 MG PO BID, #60 TAB Prov:NURYS SINGH NP 05/05/17 Pantoprazole* (Protonix*) 40 Mg Tablet.dr, 40 MG PO DAILY, #30 TAB Prov:NURYS SINGH C T TECH 05/05/17 Allergies Allergies: Coded Allergies: No Known Allergy (Unverified , 06/12/17) PMhx/Soc History of Surgery: Yes (appendix, x 2, ovarian cyst) Anesthesia Reaction: No Hx Neurological Disorder: No Hx Respiratory Disorders: No Hx Cardiac Disorders: No Hx Psychiatric Problems: No Hx Miscellaneous Medical Probl: No Hx Alcohol Use: No Hx Substance Use: No Hx Tobacco Use: No Physical Exam Vitals Vital Signs Date Time Temp Pulse Resp B/P Pulse Ox O2 Delivery O2 Flow Rate FiO2 06/20/17 03:12 65 18 108/71 95 Room Air 06/19/17 23:20 97.5 88 20 126/81 99 Physical Exam General: Well-developed, well-nourished. The patient appears in no acute distress. HEENT: Head is normocephalic, atraumatic. No scleral icterus. Pupils are equal , round, and reactive. Oral mucous membranes are moist. No pharyngeal erythema. Neck: Supple. Nontender. Lungs: Clear to auscultation. Normal air movement. Heart: Regular rate and rhythm. S1 and S2 are normal. No murmurs, gallops, or rubs. Abdomen: Soft, tender in the right upper quadrant, nondistended. Bowel sounds are normoactive. No hepatosplenomegaly. Scar from previous appendectomy seen. Extremities: No clubbing or cyanosis. Normal pulses. Moving extremities x 4. No weakness. Neurologic: Alert and oriented 3. No focal deficits. Skin: Normal turgor. No rash or lesions. Result Diagram: 06/19/17 2350 06/19/17 2350 Results 24 hrs Laboratory Tests Test 06/19/17 23:45 06/19/17 23:50 Urine Color COLORLESS Urine Clarity CLEAR Urine pH 7.0 Urine Specific [place] 1.002 Urine Ketones NEGATIVEmg/dL Urine Nitrite NEGATIVEmg/dL Urine Bilirubin NEGATIVEmg/dL Urine Urobilinogen NEGATIVEmg/dL Urine Leukocyte Esterase NEGATIVELeu/ul Urine Microscopic RBC 1/HPF Urine Microscopic WBC 0/HPF Urine Hemoglobin 3+mg/dL Urine Glucose NEGATIVEmg/dL Urine Total Protein NEGATIVEmg/dl White Blood Count 11.510^3/ul Red Blood Count 4.2710^6/ul Hemoglobin 9.1g/dl Hematocrit 30.2% Mean Corpuscular Volume 70.7fl Mean Corpuscular Hemoglobin 21.3pg Mean Corpuscular Hemoglobin Concent 30.1g/dl Red Cell Distribution Width 19.8% Platelet Count 68668^3/UL Mean Platelet Volume 11.0fl Neutrophils % 56.5% Lymphocytes % 32.8% Monocytes % 6.1% Eosinophils % 3.4% Basophils % 0.9% Nucleated Red Blood Cells % 0.0/100WBC Neutrophils # 6.510^3/ul Lymphocytes # 3.810^3/ul Monocytes # 0.710^3/ul Eosinophils # 0.410^3/ul Basophils # 0.110^3/ul Nucleated Red Blood Cells # 0.010^3/ul Sodium Level 144mmol/L Potassium Level 4.0mmol/L Chloride Level 107mmol/L Carbon Dioxide Level 28mmol/L Anion Gap 13 Blood Urea Nitrogen 10mg/dl Creatinine 0.82mg/dl Glucose Level 97mg/dl Calcium Level 9.0mg/dl Total Bilirubin 0.1mg/dl Direct Bilirubin 0.00mg/dl Indirect Bilirubin 0.1mg/dl Aspartate Amino Transf (AST/SGOT) 34IU/L Alanine Aminotransferase (ALT/SGPT) 32IU/L Alkaline Phosphatase 136IU/L Total Protein 8.5g/dl Albumin 4.1g/dl Globulin 4.40g/dl Albumin/Globulin Ratio 0.93 Lipase 317U/L Serum HCG, Qualitative NEGATIVE Current Medications Medications (Trade) Dose Ordered Sig/Morteza Route PRN Reason Start Time Stop Time Status Last Admin Dose Admin Sodium Chloride (NS) 1,000 ml @ 1,000 mls/hr Q1H STAT IV 06/19/17 23:38 06/20/17 00:37 DC 06/19/17 23:54 Morphine Sulfate (morphine) 4 mg ONCE STAT IV 06/19/17 23:38 06/19/17 23:39 DC 06/19/17 23:54 Ondansetron HCl (Zofran Inj) 4 mg ONCE STAT IV 06/19/17 23:38 06/19/17 23:39 DC 06/19/17 23:54 IV Flush 10 ml 10 ml STK-MED ONCE .ROUTE 06/20/17 01:02 06/20/17 01:03 DC 06/20/17 01:11 Sodium Chloride (NS) 100 ml @ ud STK-MED ONCE .ROUTE 06/20/17 01:02 06/20/17 01:03 DC 06/20/17 01:11 Iohexol (Omnipaque 300mg/ ml) 150 ml STK-MED ONCE .ROUTE 06/20/17 01:02 06/20/17 01:03 DC 06/20/17 01:11 Hydromorphone HCl (Dilaudid) 1 mg ONCE STAT IV 06/20/17 03:00 06/20/17 03:01 DC 06/20/17 03:13 DIAGNOSTIC IMAGING REPORT Patient: DEBBIE SHETTY : 1980 Age: 36 Sex: F MR #: [id number] DOS: 06/19/17 2340 Ordering MD: EMMA CRAFT PA-C Location: [facility] Room/Bed: PROCEDURE: CT Abdomen and Pelvis with contrast. CLINICAL INDICATION: Right upper quadrant pain, vomiting. TECHNIQUE: A CT scan of the abdomen and pelvis was performed with intravenous contrast. The patient was scanned following the uncomplicated intravenous administration of 100 cc of Isovue 300. Coronal and sagittal reformatted images were obtained from the axial source images. Images were reviewed on a high-resolution PACS workstation. CTDIvol: 11.21 mGy. DLP: 665.33 mGy-cm. One or more of the following dose reduction techniques were used: - Automated exposure control. - Adjustment of the mA and/or kV according to patient size. - Use of iterative reconstruction technique. COMPARISON: Noncontrast CT of the abdomen and pelvis dated 04/30/2017, abdominal ultrasound dated 06/12/2017 FINDINGS: There are minimal atelectatic changes in the right lower lobe. There is irregular enhancement in the inferior left hepatic lobe, but definite lesion is identified in this region.. The gallbladder is normal in appearance. The common bile duct is not dilated. The spleen is not enlarged. No pancreatic lesion is identified and there is no pancreatic ductal dilatation. The adrenal glands are unremarkable. The kidneys are normal in size. There is no perinephric fat stranding. No hydronephrosis is seen. The small and large bowel are normal in caliber. There is no bowel wall thickening. The appendix is not identified. The urinary bladder is unremarkable. There is a 1.2 cm left ovarian cyst. The uterus and right ovary are unremarkable. No lymphadenopathy is identified. There is no ascites. No pneumoperitoneum is seen. There are no arterial calcifications. There is no small fat-containing umbilical hernia. No suspicious osseous lesion is idenitified. IMPRESSION: 1. No inflammation or lymphadenopathy. 2. Irregular enhancement in the inferior left hepatic lobe, nonspecific. No definite lesion is identified in this region in this examination. The liver was also unremarkable in the prior ultrasound and noncontrast CT. This could be further evaluated with contrast enhanced MRI if clinically warranted. 3. The appendix is not identified. If there is concern for appendicitis, close clinical follow-up is recommended. 4. 1.2 cm left ovarian cyst. This could be further evaluated with ultrasound if clinically warranted. RPTAT: HTAR .Singh Garcia MD, Date Time Electronically viewed and signed by .Singh Garcia MD, on 06/20/2017 02:42 .R/ DIAGNOSTIC IMAGING REPORT Patient: DEBBIE SHETTY : 1980 Age: 36 Sex: F MR #: [id number] DOS: 06/19/17 2340 Ordering MD: EMMA CRAFT PA-C Location: [facility] Room/Bed: PROCEDURE: Chest. CLINICAL INDICATION: Chest pain. TECHNIQUE: Single frontal view of the chest was obtained. COMPARISON: 06/03/2017. FINDINGS: The cardiac silhouette is within normal limits. The aortic arch is unremarkable. There is no focal consolidation, vascular congestion or pleural effusion. There is no pneumothorax. IMPRESSION: No evidence for active cardiopulmonary disease. .Yosvany Batista MD, MD Date Time Electronically viewed and signed by .Yosvany Batista MD, MD on 06/20/2017 00:51 .T/ CC: EMMA CRAFT PA-C Procedures/MDM ED course: Patient had an IV line established she was given morphine 4 mg, Zofran 4 mg IV, labs and urine were obtained. She continued to have abdominal pain after receiving morphine, she was given Dilaudid 1 mg. The patient's abdominal pain was reexamined. Patient was sitting comfortably with improved pain. Patient was not in any distress. MDM: 36-year-old female presents with right upper quadrant abdominal pain, her differential diagnosis is broad but is not limited to hepatitis, acute hepatobiliary process, pancreatitis, kidney stones, pyelonephritis, pneumonia. The patient's workup included labs, she does not have any evidence of leukocytosis, her lipase is mildly elevated in the 300s but is not indicative of pancreatitis. She had a gallbladder ultrasound in 5 days ago and there is no evidence of gallstones, likely fatty infiltration of the liver. Patient's workup also included a CT abdomen pelvis with IV contrast, no acute intra- abdominal process. The patient's workup, imaging, and history was discussed with my attending physician, Dr. Singh who agrees that there is no emergent process and that the patient may be discharged home. Her history includes gastritis, she likely has underlying ulcer disease. Her hemoglobin is 9.9, stable from 5 days ago. She is not currently taking medication for her gastritis, and she will be started on Protonix as well as ranitidine. She is to follow-up outpatient with gastric gastroenterology for an outpatient endoscopy. Departure Diagnosis: Primary Impression: Abdominal pain Additional Impression: Anemia Condition: Good EMMA CRAFT PA-C Jun 20, 2017 00:04
--- NOTE | 2017-06-20 00:04 | ERD ---
ER Documentation Chief Complaint Chief Complaint right upper abdominal pain radiating to back, with N/V started at 9pm HPI 36-year-old female with a history of gastritis presents with recurring right upper quadrant abdominal pain radiating to her back with nausea vomiting over the last 5 days. The patient describes severe pain that is diffuse, achy. She has not had any fevers or chills. Patient had labs and gallbladder ultrasound all unremarkable 5 days ago. ROS All systems reviewed and are negative except as per history of present illness. Medications Home Meds Active Scripts Hydrocodone/Acetaminophen ([place] 5-325 Tablet) 1 Each Tablet, 1 TAB PO Q6H Y for PAIN, #7 TAB Prov:EMMA CRAFT PA-C 06/20/17 Ranitidine Hcl* (Zantac*) 150 Mg Tablet, 150 MG PO BID Y for EPIGASTRIC PAIN, # 30 TAB Prov:EMMA CRAFT PA-C 06/20/17 Pantoprazole* (Protonix*) 40 Mg Tablet.dr, 40 MG PO DAILY, #30 TAB Prov:EMMA CRAFT PA-C 06/20/17 Magaldrate/Simethicone* (Mylanta*) 355 Ml Susp, 30 ML PO QID Y for GASTROINTESTINAL UPSET, #1 BOTTLE Prov:MONICO BURCH. REPAIRER PUMP 06/12/17 Dicyclomine Hcl* (Bentyl*) 10 Mg Capsule, 10 MG PO QID Y for GASTROINTESTINAL UPSET, #20 CAP Prov:MONICO BURCH. REPAIRER PUMP 06/12/17 Omeprazole* (Omeprazole*) 20 Mg Capsule., 20 MG PO DAILY, #20 Prov:JOVANNA BECKFORD PA-C 06/03/17 Famotidine* (Pepcid*) 20 Mg Tablet, 20 MG PO DAILY for 4 Days, TAB Prov:JOVANNA BECKFORD PA-C 06/03/17 Ondansetron (Ondansetron Odt) 4 Mg Tab.rapdis, 4 MG PO Q6H Y for NAUSEA AND/OR VOMITING, #20 TAB Prov:JOVANNA BECKFORD PA-C 06/03/17 Docusate Sodium* (Colace*) 100 Mg Capsule, 100 MG PO BID, #30 CAP Prov:JOVANNA BECKFORD PA-C 06/03/17 Ferrous Sulfate* (Ferrous Sulfate*) 325 Mg Tabec, 325 MG PO BID, #30 TAB Prov:JOVANNA BECKFORD PA-C 06/03/17 Ferrous Sulfate* (Ferrous Sulfate*) 325 Mg Tabec, 325 MG PO BID, #60 TAB Prov:NURYS SINGH NP 05/05/17 Pantoprazole* (Protonix*) 40 Mg Tablet.dr, 40 MG PO DAILY, #30 TAB Prov:NURYS SINGH REPAIRER PUMP 05/05/17 Allergies Allergies: Coded Allergies: No Known Allergy (Unverified , 06/12/17) PMhx/Soc History of Surgery: Yes (appendix, x 2, ovarian cyst) Anesthesia Reaction: No Hx Neurological Disorder: No Hx Respiratory Disorders: No Hx Cardiac Disorders: No Hx Psychiatric Problems: No Hx Miscellaneous Medical Probl: No Hx Alcohol Use: No Hx Substance Use: No Hx Tobacco Use: No Physical Exam Vitals Vital Signs Date Time Temp Pulse Resp B/P Pulse Ox O2 Delivery O2 Flow Rate FiO2 06/20/17 03:12 65 18 108/71 95 Room Air 06/19/17 23:20 97.5 88 20 126/81 99 Physical Exam General: Well-developed, well-nourished. The patient appears in no acute distress. HEENT: Head is normocephalic, atraumatic. No scleral icterus. Pupils are equal , round, and reactive. Oral mucous membranes are moist. No pharyngeal erythema. Neck: Supple. Nontender. Lungs: Clear to auscultation. Normal air movement. Heart: Regular rate and rhythm. S1 and S2 are normal. No murmurs, gallops, or rubs. Abdomen: Soft, tender in the right upper quadrant, nondistended. Bowel sounds are normoactive. No hepatosplenomegaly. Scar from previous appendectomy seen. Extremities: No clubbing or cyanosis. Normal pulses. Moving extremities x 4. No weakness. Neurologic: Alert and oriented 3. No focal deficits. Skin: Normal turgor. No rash or lesions. Result Diagram: 06/19/17 2350 06/19/17 2350 Results 24 hrs Laboratory Tests Test 06/19/17 23:45 06/19/17 23:50 Urine Color COLORLESS Urine Clarity CLEAR Urine pH 7.0 Urine Specific [place] 1.002 Urine Ketones NEGATIVEmg/dL Urine Nitrite NEGATIVEmg/dL Urine Bilirubin NEGATIVEmg/dL Urine Urobilinogen NEGATIVEmg/dL Urine Leukocyte Esterase NEGATIVELeu/ul Urine Microscopic RBC 1/HPF Urine Microscopic WBC 0/HPF Urine Hemoglobin 3+mg/dL Urine Glucose NEGATIVEmg/dL Urine Total Protein NEGATIVEmg/dl White Blood Count 11.510^3/ul Red Blood Count 4.2710^6/ul Hemoglobin 9.1g/dl Hematocrit 30.2% Mean Corpuscular Volume 70.7fl Mean Corpuscular Hemoglobin 21.3pg Mean Corpuscular Hemoglobin Concent 30.1g/dl Red Cell Distribution Width 19.8% Platelet Count 18126^3/UL Mean Platelet Volume 11.0fl Neutrophils % 56.5% Lymphocytes % 32.8% Monocytes % 6.1% Eosinophils % 3.4% Basophils % 0.9% Nucleated Red Blood Cells % 0.0/100WBC Neutrophils # 6.510^3/ul Lymphocytes # 3.810^3/ul Monocytes # 0.710^3/ul Eosinophils # 0.410^3/ul Basophils # 0.110^3/ul Nucleated Red Blood Cells # 0.010^3/ul Sodium Level 144mmol/L Potassium Level 4.0mmol/L Chloride Level 107mmol/L Carbon Dioxide Level 28mmol/L Anion Gap 13 Blood Urea Nitrogen 10mg/dl Creatinine 0.82mg/dl Glucose Level 97mg/dl Calcium Level 9.0mg/dl Total Bilirubin 0.1mg/dl Direct Bilirubin 0.00mg/dl Indirect Bilirubin 0.1mg/dl Aspartate Amino Transf (AST/SGOT) 34IU/L Alanine Aminotransferase (ALT/SGPT) 32IU/L Alkaline Phosphatase 136IU/L Total Protein 8.5g/dl Albumin 4.1g/dl Globulin 4.40g/dl Albumin/Globulin Ratio 0.93 Lipase 317U/L Serum HCG, Qualitative NEGATIVE Current Medications Medications (Trade) Dose Ordered Sig/Morteza Route PRN Reason Start Time Stop Time Status Last Admin Dose Admin Sodium Chloride (NS) 1,000 ml @ 1,000 mls/hr Q1H STAT IV 06/19/17 23:38 06/20/17 00:37 DC 06/19/17 23:54 Morphine Sulfate (morphine) 4 mg ONCE STAT IV 06/19/17 23:38 06/19/17 23:39 DC 06/19/17 23:54 Ondansetron HCl (Zofran Inj) 4 mg ONCE STAT IV 06/19/17 23:38 06/19/17 23:39 DC 06/19/17 23:54 IV Flush 10 ml 10 ml STK-MED ONCE .ROUTE 06/20/17 01:02 06/20/17 01:03 DC 06/20/17 01:11 Sodium Chloride (NS) 100 ml @ ud STK-MED ONCE .ROUTE 06/20/17 01:02 06/20/17 01:03 DC 06/20/17 01:11 Iohexol (Omnipaque 300mg/ ml) 150 ml STK-MED ONCE .ROUTE 06/20/17 01:02 06/20/17 01:03 DC 06/20/17 01:11 Hydromorphone HCl (Dilaudid) 1 mg ONCE STAT IV 06/20/17 03:00 06/20/17 03:01 DC 06/20/17 03:13 DIAGNOSTIC IMAGING REPORT Patient: DEBBIE SHETTY : 1980 Age: 36 Sex: F MR #: [id number] DOS: 06/19/17 2340 Ordering MD: EMMA CRAFT PA-C Location: [facility] Room/Bed: PROCEDURE: CT Abdomen and Pelvis with contrast. CLINICAL INDICATION: Right upper quadrant pain, vomiting. TECHNIQUE: A CT scan of the abdomen and pelvis was performed with intravenous contrast. The patient was scanned following the uncomplicated intravenous administration of 100 cc of Isovue 300. Coronal and sagittal reformatted images were obtained from the axial source images. Images were reviewed on a high-resolution PACS workstation. CTDIvol: 11.21 mGy. DLP: 665.33 mGy-cm. One or more of the following dose reduction techniques were used: - Automated exposure control. - Adjustment of the mA and/or kV according to patient size. - Use of iterative reconstruction technique. COMPARISON: Noncontrast CT of the abdomen and pelvis dated 04/30/2017, abdominal ultrasound dated 06/12/2017 FINDINGS: There are minimal atelectatic changes in the right lower lobe. There is irregular enhancement in the inferior left hepatic lobe, but definite lesion is identified in this region.. The gallbladder is normal in appearance. The common bile duct is not dilated. The spleen is not enlarged. No pancreatic lesion is identified and there is no pancreatic ductal dilatation. The adrenal glands are unremarkable. The kidneys are normal in size. There is no perinephric fat stranding. No hydronephrosis is seen. The small and large bowel are normal in caliber. There is no bowel wall thickening. The appendix is not identified. The urinary bladder is unremarkable. There is a 1.2 cm left ovarian cyst. The uterus and right ovary are unremarkable. No lymphadenopathy is identified. There is no ascites. No pneumoperitoneum is seen. There are no arterial calcifications. There is no small fat-containing umbilical hernia. No suspicious osseous lesion is idenitified. IMPRESSION: 1. No inflammation or lymphadenopathy. 2. Irregular enhancement in the inferior left hepatic lobe, nonspecific. No definite lesion is identified in this region in this examination. The liver was also unremarkable in the prior ultrasound and noncontrast CT. This could be further evaluated with contrast enhanced MRI if clinically warranted. 3. The appendix is not identified. If there is concern for appendicitis, close clinical follow-up is recommended. 4. 1.2 cm left ovarian cyst. This could be further evaluated with ultrasound if clinically warranted. RPTAT: HTAR .Singh Garcia MD, Date Time Electronically viewed and signed by .Singh Garcia MD, on 06/20/2017 02:42 .R/ DIAGNOSTIC IMAGING REPORT Patient: DEBBIE SHETTY : 1980 Age: 36 Sex: F MR #: [id number] DOS: 06/19/17 2340 Ordering MD: EMMA CRAFT PA-C Location: [facility] Room/Bed: PROCEDURE: Chest. CLINICAL INDICATION: Chest pain. TECHNIQUE: Single frontal view of the chest was obtained. COMPARISON: 06/03/2017. FINDINGS: The cardiac silhouette is within normal limits. The aortic arch is unremarkable. There is no focal consolidation, vascular congestion or pleural effusion. There is no pneumothorax. IMPRESSION: No evidence for active cardiopulmonary disease. .Yosvany Batista MD, MD Date Time Electronically viewed and signed by .Yosvany Batista MD, MD on 06/20/2017 00:51 .T/ CC: EMMA CRAFT PA-C Procedures/MDM ED course: Patient had an IV line established she was given morphine 4 mg, Zofran 4 mg IV, labs and urine were obtained. She continued to have abdominal pain after receiving morphine, she was given Dilaudid 1 mg. The patient's abdominal pain was reexamined. Patient was sitting comfortably with improved pain. Patient was not in any distress. MDM: 36-year-old female presents with right upper quadrant abdominal pain, her differential diagnosis is broad but is not limited to hepatitis, acute hepatobiliary process, pancreatitis, kidney stones, pyelonephritis, pneumonia. The patient's workup included labs, she does not have any evidence of leukocytosis, her lipase is mildly elevated in the 300s but is not indicative of pancreatitis. She had a gallbladder ultrasound in 5 days ago and there is no evidence of gallstones, likely fatty infiltration of the liver. Patient's workup also included a CT abdomen pelvis with IV contrast, no acute intra- abdominal process. The patient's workup, imaging, and history was discussed with my attending physician, Dr. Singh who agrees that there is no emergent process and that the patient may be discharged home. Her history includes gastritis, she likely has underlying ulcer disease. Her hemoglobin is 9.9, stable from 5 days ago. She is not currently taking medication for her gastritis, and she will be started on Protonix as well as ranitidine. She is to follow-up outpatient with gastric gastroenterology for an outpatient endoscopy. Departure Diagnosis: Primary Impression: Abdominal pain Additional Impression: Anemia Condition: Good EMMA CRAFT PA-C Jun 20, 2017 00:04
--- NOTE | 2017-06-20 00:04 | ERD ---
ER Documentation Chief Complaint Chief Complaint right upper abdominal pain radiating to back, with N/V started at 9pm HPI 36-year-old female with a history of gastritis presents with recurring right upper quadrant abdominal pain radiating to her back with nausea vomiting over the last 5 days. The patient describes severe pain that is diffuse, achy. She has not had any fevers or chills. Patient had labs and gallbladder ultrasound all unremarkable 5 days ago. ROS All systems reviewed and are negative except as per history of present illness. Medications Home Meds Active Scripts Hydrocodone/Acetaminophen ([place] 5-325 Tablet) 1 Each Tablet, 1 TAB PO Q6H Y for PAIN, #7 TAB Prov:EMMA CRAFT PA-C 06/20/17 Ranitidine Hcl* (Zantac*) 150 Mg Tablet, 150 MG PO BID Y for EPIGASTRIC PAIN, # 30 TAB Prov:EMMA CRAFT PA-C 06/20/17 Pantoprazole* (Protonix*) 40 Mg Tablet.dr, 40 MG PO DAILY, #30 TAB Prov:EMMA CRAFT PA-C 06/20/17 Magaldrate/Simethicone* (Mylanta*) 355 Ml Susp, 30 ML PO QID Y for GASTROINTESTINAL UPSET, #1 BOTTLE Prov:MONICO BURCH. SEISMOGRAPH RECORDER 06/12/17 Dicyclomine Hcl* (Bentyl*) 10 Mg Capsule, 10 MG PO QID Y for GASTROINTESTINAL UPSET, #20 CAP Prov:MONICO BURCH. SEISMOGRAPH RECORDER 06/12/17 Omeprazole* (Omeprazole*) 20 Mg Capsule., 20 MG PO DAILY, #20 Prov:JOVANNA BECKFORD PA-C 06/03/17 Famotidine* (Pepcid*) 20 Mg Tablet, 20 MG PO DAILY for 4 Days, TAB Prov:JOVANNA BECKFORD PA-C 06/03/17 Ondansetron (Ondansetron Odt) 4 Mg Tab.rapdis, 4 MG PO Q6H Y for NAUSEA AND/OR VOMITING, #20 TAB Prov:JOVANNA BECKFORD PA-C 06/03/17 Docusate Sodium* (Colace*) 100 Mg Capsule, 100 MG PO BID, #30 CAP Prov:JOVANNA BECKFORD PA-C 06/03/17 Ferrous Sulfate* (Ferrous Sulfate*) 325 Mg Tabec, 325 MG PO BID, #30 TAB Prov:JOVANNA BECKFORD PA-C 06/03/17 Ferrous Sulfate* (Ferrous Sulfate*) 325 Mg Tabec, 325 MG PO BID, #60 TAB Prov:NURYS SINGH NP 05/05/17 Pantoprazole* (Protonix*) 40 Mg Tablet.dr, 40 MG PO DAILY, #30 TAB Prov:NURYS SINGH SEISMOGRAPH RECORDER 05/05/17 Allergies Allergies: Coded Allergies: No Known Allergy (Unverified , 06/12/17) PMhx/Soc History of Surgery: Yes (appendix, x 2, ovarian cyst) Anesthesia Reaction: No Hx Neurological Disorder: No Hx Respiratory Disorders: No Hx Cardiac Disorders: No Hx Psychiatric Problems: No Hx Miscellaneous Medical Probl: No Hx Alcohol Use: No Hx Substance Use: No Hx Tobacco Use: No Physical Exam Vitals Vital Signs Date Time Temp Pulse Resp B/P Pulse Ox O2 Delivery O2 Flow Rate FiO2 06/20/17 03:12 65 18 108/71 95 Room Air 06/19/17 23:20 97.5 88 20 126/81 99 Physical Exam General: Well-developed, well-nourished. The patient appears in no acute distress. HEENT: Head is normocephalic, atraumatic. No scleral icterus. Pupils are equal , round, and reactive. Oral mucous membranes are moist. No pharyngeal erythema. Neck: Supple. Nontender. Lungs: Clear to auscultation. Normal air movement. Heart: Regular rate and rhythm. S1 and S2 are normal. No murmurs, gallops, or rubs. Abdomen: Soft, tender in the right upper quadrant, nondistended. Bowel sounds are normoactive. No hepatosplenomegaly. Scar from previous appendectomy seen. Extremities: No clubbing or cyanosis. Normal pulses. Moving extremities x 4. No weakness. Neurologic: Alert and oriented 3. No focal deficits. Skin: Normal turgor. No rash or lesions. Result Diagram: 06/19/17 2350 06/19/17 2350 Results 24 hrs Laboratory Tests Test 06/19/17 23:45 06/19/17 23:50 Urine Color COLORLESS Urine Clarity CLEAR Urine pH 7.0 Urine Specific [place] 1.002 Urine Ketones NEGATIVEmg/dL Urine Nitrite NEGATIVEmg/dL Urine Bilirubin NEGATIVEmg/dL Urine Urobilinogen NEGATIVEmg/dL Urine Leukocyte Esterase NEGATIVELeu/ul Urine Microscopic RBC 1/HPF Urine Microscopic WBC 0/HPF Urine Hemoglobin 3+mg/dL Urine Glucose NEGATIVEmg/dL Urine Total Protein NEGATIVEmg/dl White Blood Count 11.510^3/ul Red Blood Count 4.2710^6/ul Hemoglobin 9.1g/dl Hematocrit 30.2% Mean Corpuscular Volume 70.7fl Mean Corpuscular Hemoglobin 21.3pg Mean Corpuscular Hemoglobin Concent 30.1g/dl Red Cell Distribution Width 19.8% Platelet Count 30467^3/UL Mean Platelet Volume 11.0fl Neutrophils % 56.5% Lymphocytes % 32.8% Monocytes % 6.1% Eosinophils % 3.4% Basophils % 0.9% Nucleated Red Blood Cells % 0.0/100WBC Neutrophils # 6.510^3/ul Lymphocytes # 3.810^3/ul Monocytes # 0.710^3/ul Eosinophils # 0.410^3/ul Basophils # 0.110^3/ul Nucleated Red Blood Cells # 0.010^3/ul Sodium Level 144mmol/L Potassium Level 4.0mmol/L Chloride Level 107mmol/L Carbon Dioxide Level 28mmol/L Anion Gap 13 Blood Urea Nitrogen 10mg/dl Creatinine 0.82mg/dl Glucose Level 97mg/dl Calcium Level 9.0mg/dl Total Bilirubin 0.1mg/dl Direct Bilirubin 0.00mg/dl Indirect Bilirubin 0.1mg/dl Aspartate Amino Transf (AST/SGOT) 34IU/L Alanine Aminotransferase (ALT/SGPT) 32IU/L Alkaline Phosphatase 136IU/L Total Protein 8.5g/dl Albumin 4.1g/dl Globulin 4.40g/dl Albumin/Globulin Ratio 0.93 Lipase 317U/L Serum HCG, Qualitative NEGATIVE Current Medications Medications (Trade) Dose Ordered Sig/Morteza Route PRN Reason Start Time Stop Time Status Last Admin Dose Admin Sodium Chloride (NS) 1,000 ml @ 1,000 mls/hr Q1H STAT IV 06/19/17 23:38 06/20/17 00:37 DC 06/19/17 23:54 Morphine Sulfate (morphine) 4 mg ONCE STAT IV 06/19/17 23:38 06/19/17 23:39 DC 06/19/17 23:54 Ondansetron HCl (Zofran Inj) 4 mg ONCE STAT IV 06/19/17 23:38 06/19/17 23:39 DC 06/19/17 23:54 IV Flush 10 ml 10 ml STK-MED ONCE .ROUTE 06/20/17 01:02 06/20/17 01:03 DC 06/20/17 01:11 Sodium Chloride (NS) 100 ml @ ud STK-MED ONCE .ROUTE 06/20/17 01:02 06/20/17 01:03 DC 06/20/17 01:11 Iohexol (Omnipaque 300mg/ ml) 150 ml STK-MED ONCE .ROUTE 06/20/17 01:02 06/20/17 01:03 DC 06/20/17 01:11 Hydromorphone HCl (Dilaudid) 1 mg ONCE STAT IV 06/20/17 03:00 06/20/17 03:01 DC 06/20/17 03:13 DIAGNOSTIC IMAGING REPORT Patient: DEBBIE SHETTY : 1980 Age: 36 Sex: F MR #: [id number] DOS: 06/19/17 2340 Ordering MD: EMMA CRAFT PA-C Location: [facility] Room/Bed: PROCEDURE: CT Abdomen and Pelvis with contrast. CLINICAL INDICATION: Right upper quadrant pain, vomiting. TECHNIQUE: A CT scan of the abdomen and pelvis was performed with intravenous contrast. The patient was scanned following the uncomplicated intravenous administration of 100 cc of Isovue 300. Coronal and sagittal reformatted images were obtained from the axial source images. Images were reviewed on a high-resolution PACS workstation. CTDIvol: 11.21 mGy. DLP: 665.33 mGy-cm. One or more of the following dose reduction techniques were used: - Automated exposure control. - Adjustment of the mA and/or kV according to patient size. - Use of iterative reconstruction technique. COMPARISON: Noncontrast CT of the abdomen and pelvis dated 04/30/2017, abdominal ultrasound dated 06/12/2017 FINDINGS: There are minimal atelectatic changes in the right lower lobe. There is irregular enhancement in the inferior left hepatic lobe, but definite lesion is identified in this region.. The gallbladder is normal in appearance. The common bile duct is not dilated. The spleen is not enlarged. No pancreatic lesion is identified and there is no pancreatic ductal dilatation. The adrenal glands are unremarkable. The kidneys are normal in size. There is no perinephric fat stranding. No hydronephrosis is seen. The small and large bowel are normal in caliber. There is no bowel wall thickening. The appendix is not identified. The urinary bladder is unremarkable. There is a 1.2 cm left ovarian cyst. The uterus and right ovary are unremarkable. No lymphadenopathy is identified. There is no ascites. No pneumoperitoneum is seen. There are no arterial calcifications. There is no small fat-containing umbilical hernia. No suspicious osseous lesion is idenitified. IMPRESSION: 1. No inflammation or lymphadenopathy. 2. Irregular enhancement in the inferior left hepatic lobe, nonspecific. No definite lesion is identified in this region in this examination. The liver was also unremarkable in the prior ultrasound and noncontrast CT. This could be further evaluated with contrast enhanced MRI if clinically warranted. 3. The appendix is not identified. If there is concern for appendicitis, close clinical follow-up is recommended. 4. 1.2 cm left ovarian cyst. This could be further evaluated with ultrasound if clinically warranted. RPTAT: HTAR .Singh Garcia MD, Date Time Electronically viewed and signed by .Singh Garcia MD, on 06/20/2017 02:42 .R/ DIAGNOSTIC IMAGING REPORT Patient: DEBBIE SHETTY : 1980 Age: 36 Sex: F MR #: [id number] DOS: 06/19/17 2340 Ordering MD: EMMA CRAFT PA-C Location: [facility] Room/Bed: PROCEDURE: Chest. CLINICAL INDICATION: Chest pain. TECHNIQUE: Single frontal view of the chest was obtained. COMPARISON: 06/03/2017. FINDINGS: The cardiac silhouette is within normal limits. The aortic arch is unremarkable. There is no focal consolidation, vascular congestion or pleural effusion. There is no pneumothorax. IMPRESSION: No evidence for active cardiopulmonary disease. .Yosvany Batista MD, MD Date Time Electronically viewed and signed by .Yosvany Batista MD, MD on 06/20/2017 00:51 .T/ CC: EMMA CRAFT PA-C Procedures/MDM ED course: Patient had an IV line established she was given morphine 4 mg, Zofran 4 mg IV, labs and urine were obtained. She continued to have abdominal pain after receiving morphine, she was given Dilaudid 1 mg. The patient's abdominal pain was reexamined. Patient was sitting comfortably with improved pain. Patient was not in any distress. MDM: 36-year-old female presents with right upper quadrant abdominal pain, her differential diagnosis is broad but is not limited to hepatitis, acute hepatobiliary process, pancreatitis, kidney stones, pyelonephritis, pneumonia. The patient's workup included labs, she does not have any evidence of leukocytosis, her lipase is mildly elevated in the 300s but is not indicative of pancreatitis. She had a gallbladder ultrasound in 5 days ago and there is no evidence of gallstones, likely fatty infiltration of the liver. Patient's workup also included a CT abdomen pelvis with IV contrast, no acute intra- abdominal process. The patient's workup, imaging, and history was discussed with my attending physician, Dr. Singh who agrees that there is no emergent process and that the patient may be discharged home. Her history includes gastritis, she likely has underlying ulcer disease. Her hemoglobin is 9.9, stable from 5 days ago. She is not currently taking medication for her gastritis, and she will be started on Protonix as well as ranitidine. She is to follow-up outpatient with gastric gastroenterology for an outpatient endoscopy. Departure Diagnosis: Primary Impression: Abdominal pain Additional Impression: Anemia Condition: Good EMMA CRAFT PA-C Jun 20, 2017 00:04
--- NOTE | 2017-06-20 00:51 | RADRPT ---
PROCEDURE: Chest. CLINICAL INDICATION: Chest pain. TECHNIQUE: Single frontal view of the chest was obtained. COMPARISON: 06/03/2017. FINDINGS: The cardiac silhouette is within normal limits. The aortic arch is unremarkable. There is no focal consolidation, vascular congestion or pleural effusion. There is no pneumothorax. IMPRESSION: No evidence for active cardiopulmonary disease. .Yosvany Batista MD, Date Time Electronically viewed and signed by .Yosvany Batista MD, on 06/20/2017 00:51 .T/
[2017-06-20] MEDS ORDERED: IOHEXOL 300MG/ML 150 ML BTL ONE (01:02)
[2017-06-20] MEDS ORDERED: SOD CHLORIDE 0.9% 100 ML ONE (01:02)
--- NOTE | 2017-06-20 02:42 | RADRPT ---
PROCEDURE: CT Abdomen and Pelvis with contrast. CLINICAL INDICATION: Right upper quadrant pain, vomiting. TECHNIQUE: A CT scan of the abdomen and pelvis was performed with intravenous contrast. The patie nt was scanned following the uncomplicated intravenous administration of 100 cc of Isovue 300. Dieter nal and sagittal reformatted images were obtained from the axial source images. Images were reviewed on a high-resolution PACS workstation. CTDIvol: 11.21 mGy. DLP: 665.33 mGy-cm. One or more of the following dose reduction techniques were used: - Automated exposure control. - Adjustment of the mA and/or kV according to patient size. - Use of iterative reconstruction technique. COMPARISON: Noncontrast CT of the abdomen and pelvis dated 04/30/2017, abdominal ultrasound dated 06/12/2017 FINDINGS: There are minimal atelectatic changes in the right lower lobe. There is irregular enhancement in the inferior left hepatic lobe, but definite lesion is identified in this region.. The gallbladder is normal in appearance. The common bile duct is not dilated. The s pleen is not enlarged. No pancreatic lesion is identified and there is no pancreatic ductal dilatati on. The adrenal glands are unremarkable. The kidneys are normal in size. There is no perinephric fat stranding. No hydronephrosis is seen. The small and large bowel are normal in caliber. There is no bowel wall thickening. The appendix is not identified. The urinary bladder is unremarkable. There is a 1.2 cm left ovarian cyst. The uterus and right ovar y are unremarkable. No lymphadenopathy is identified. There is no ascites. No pneumoperitoneum is seen. There are no art erial calcifications. There is no small fat-containing umbilical hernia. No suspicious osseous lesion is idenitified. IMPRESSION: 1. No inflammation or lymphadenopathy. 2. Irregular enhancement in the inferior left hepatic lobe, nonspecific. No definite lesion is iden tified in this region in this examination. The liver was also unremarkable in the prior ultrasound a nd noncontrast CT. This could be further evaluated with contrast enhanced MRI if clinically warrante d. 3. The appendix is not identified. If there is concern for appendicitis, close clinical follow-up is recommended. 4. 1.2 cm left ovarian cyst. This could be further evaluated with ultrasound if clinically warrante d. RPTAT: HTAR .Singh Garcia MD, MD Date Time Electronically viewed and signed by .Singh Garcia MD, on 06/20/2017 02:42 .R/
[2017-06-20] MEDS ORDERED: HYDROmorphONE 1 MG/ML SYG IV STA (03:00)
[2017-06-20] MEDS ORDERED: HYDR-906 PO (03:01)
[2017-06-20] MEDS ORDERED: PANT40TA3 PO (03:01)
[2017-06-20] MEDS ORDERED: RANI150T9 PO (03:01)
[2017-06-20 03:12] VITALS: BP 108/71; PULSE 65; RESP 18
== END 2017-06-20 03:52 | disposition home or self-care (01) ==
LOC: FTE 23:15
DX: D64.9 Anemia, unspecified (principal); R11.2 Nausea with vomiting, unspecified
CPT/HCPCS: 36415; 71010; 74177; 80053; 81001; 83690; 84703; 85025; 96374; 96375; J1170; J2270; J2405; J7030; Q9967; Z7502; Z7610

== ENCOUNTER 2017-07-15 15:36 | Emergency (ER) | payer MEDICAID ==
[~2017-07-15] VITALS: Wt 69.5 kg
[~2017-07-15 15:36] MED LIST changes: +HYDR-906 PO; +RANI150T9 PO
[2017-07-15] MEDS ORDERED: SOD CHLORIDE 0.9% 1,000 ML IV STA (16:58)
[2017-07-15] MEDS ORDERED: ONDANSETRON 4 MG INJ IV STA (16:58)
[2017-07-15] MEDS ORDERED: morphine 4 MG/ML VIAL IV STA (16:58)
[2017-07-15] MEDS ORDERED: KETOROLAC 30 MG INJ IV STA (16:58)
[2017-07-15 17:20] LABS: BASOPHIL # 0.1 10^3/ul (0.0-0.1); BASOPHILS % 1.2 % (0.0-2.0); EOSINOPHILS # 0.4 10^3/ul (0.0-0.5); EOSINOPHILS % 4.4 % (0.0-7.0); HEMATOCRIT 33.5 % (37.0-47.0); HEMOGLOBIN 10.1 g/dl (12.0-16.0); LYMPHOCYTES # 3.5 10^3/ul (0.8-2.9); LYMPHOCYTES % 43.3 % (15.0-51.0); MEAN CORPUSCULAR HEMOGLOBIN 21.7 pg (29.0-33.0); MEAN CORPUSCULAR HGB CONC 30.1 g/dl (32.0-37.0); MEAN CORPUSCULAR VOLUME 71.9 fl (82.0-101.0); MEAN PLATELET VOLUME 10.6 fl (7.4-10.4); MONOCYTE # 0.6 10^3/ul (0.3-0.9); MONOCYTES % 7.2 % (0.0-11.0); NEUTROPHIL # 3.6 10^3/ul (1.6-7.5); NEUTROPHILS % 43.7 % (39.0-77.0); PLATELET COUNT 366 10^3/UL (140-415); RED BLOOD COUNT 4.66 10^6/ul (4.20-5.40); RED CELL DISTRIBUTION WIDTH 19.1 % (11.5-14.5); WHITE BLOOD COUNT 8.2 10^3/ul (4.8-10.8)
[2017-07-15 17:24] LABS: ADD UMIC YES; UR ASCORBIC ACID NEGATIVE (NEGATIVE); UR BILIRUBIN (Dip) NEGATIVE (NEGATIVE); UR BLOOD (Dip) 1+ mg/dL (NEGATIVE); UR CLARITY CLEAR (CLEAR); UR COLOR STRAW (YELLOW); UR GLUCOSE (Dip) NEGATIVE (NEGATIVE); UR KETONES (Dip) NEGATIVE (NEGATIVE); UR LEUKOCYTE ESTERASE (Dip) NEGATIVE Leu/ul (NEGATIVE); UR NITRITE (Dip) NEGATIVE (NEGATIVE); UR RBC 2 /HPF (0-5); UR SPECIFIC GRAVITY (Dip) 1.005 (1.003-1.030); UR SQUAMOUS EPITHELIAL CELL FEW /HPF (FEW); UR TOTAL PROTEIN (Dip) NEGATIVE (NEGATIVE); UR UROBILINOGEN (Dip) NEGATIVE (NEGATIVE)
[2017-07-15 17:56] LABS: ALBUMIN 4.3 g/dl (3.3-4.9); CALCIUM 9.1 mg/dl (8.4-10.2); CREATININE 0.66 mg/dl (0.44-1.00); POTASSIUM 3.7 mmol/L (3.5-5.1); TOTAL PROTEIN 8.6 g/dl (6.1-8.1)
--- NOTE | 2017-07-15 18:08 | RADRPT ---
PROCEDURE: Right upper quadrant ultrasound CLINICAL INDICATION: Abdominal pain TECHNIQUE: Multiple real-time images were acquired of the patient's abdomen and right retroperiton eum utilizing a high resolution transducer. COMPARISON: None FINDINGS: The liver is increased in echogenicity and measures 13.7 cm. No focal hepatic masses are seen. The gallbladder is physiologically distended. There is no evidence of gallstones, gallbladder wall thi ckening, or pericholecystic fluid. The intra and extrahepatic bile ducts are normal in caliber. Th e common bile duct measures 3.9 mm. Pancreas is suboptimally seen Survey views of the right kidney demonstrate no evidence of hydronephrosis or renal calculi. The ri ght kidney measures 9.2 cm. IMPRESSION: 1. No evidence of cholelithiasis or acute cholecystitis. 2. Mild fatty liver. 3. Pancreas not visualized RPTAT: HH .James Garcia MD, Date Time Electronically viewed and signed by .James Garcia MD, on 07/15/2017 18:08 .W/
[2017-07-15] MEDS ORDERED: SOD CHLORIDE 0.9% 100 ML ONE (18:46)
[2017-07-15] MEDS ORDERED: IOHEXOL 300MG/ML 150 ML BTL ONE (18:46)
--- NOTE | 2017-07-15 19:08 | RADRPT ---
PROCEDURE: CT Abdomen and Pelvis with contrast. CLINICAL INDICATION: recurring right upper quadrant pain TECHNIQUE: CT scan of the abdomen and pelvis with contrast was performed on a multi-detector high- resolution CT scanner. The patient was scanned following the uncomplicated intravenous administrati on of 100 cc of Omnipaque 300. Coronal and sagittal reformatted images were obtained from the axial source images. Images were reviewed on a high-resolution PACS workstation. The total exam CTDI equa ls 10.3 mGy and the total exam DLP equals 645 mGy-cm. DICOM images are available. One or more of the following dose reduction techniques were utilized: 1.) Automated exposure control 2.) Adjustment of the mA +/- kV according to patient's size 3.) Use of iterative reconstruction technique. COMPARISON: June 20, 2017 FINDINGS: Limited evaluation of the lung bases are clear. No pleural effusions. The superior edge of the liver extends beyond the superior edge of the scan is therefore not evaluat ed though the hepatic dome was normal on the recent prior CT of the abdomen and pelvis. No biliary d ilatation. The portal vein is patent. Focal fatty infiltration is present along the falciform ligame nt of the liver. The spleen, bilateral adrenal glands, gallbladder, and pancreas are normal-appearing. The bilateral kidneys are normal-appearing without hydronephrosis nor suspicious renal mass. No neph rolithiasis. The small and large bowel are thin-walled and nondilated without evidence for obstructi on. The appendix is not directly visualize though there are no secondary signs of appendicitis. Abdominal aorta is normal in course and caliber without dissection or aneurysm. Urinary bladder is decompressed. Grossly unremarkable. The uterus is grossly normal. A cystic struct ure in the left adnexa measuring approximately 16 mm may represent a dominant physiologic follicle. A second smaller cystic structure in the left adnexa is stable since the prior examination from a fe w weeks ago and may represent an additional ovarian follicle though it is incompletely evaluated by CT. No free air, free fluid, mesenteric stranding, nor abdominal pelvic adenopathy by imaging size crite bessie. IMPRESSION: No acute intra-abdominal process. The appendix is not identified though there are no secondary signs of appendicitis in the right lower quadrant. An explanation for the patient's abdominal pain is yaneth ntified on this exam. Alexandr Baumann, Physician Date Time Electronically viewed and signed by Alexandr Baumann, Physician on 07/15/2017 19:07 ML/
[2017-07-15] MEDS ORDERED: FAMO-96 PO (19:14)
[2017-07-15] MEDS ORDERED: HYDR-906 PO (19:14)
[2017-07-15 19:38] VITALS: BP 118/71; PULSE 74; RESP 17
--- NOTE | 2017-07-15 22:52 | ERD ---
ER Documentation Chief Complaint Chief Complaint ruq pain x 4 days HPI 36-year-old female complaining of right upper quadrant pain 4 days. Patient states she has nausea but no vomiting. Normal urination and bowel movement. Denies chest pain or shortness of breath. Denies fevers. Denies cough. Has not taken medications for her symptoms. States that the pain is constant. Has never had this before. Denies medical problems. NKDA. Surgical history:C- Section, appy, ovarian cyst. ROS All systems reviewed and are negative except as per history of present illness. Medications Home Meds Active Scripts Famotidine* (Pepcid*) 20 Mg Tablet, 20 MG PO BID for 4 Days, #30 TAB Prov:DARVIN LUI PA-C 07/15/17 Hydrocodone/Acetaminophen (Ismay 5-325 Tablet) 1 Each Tablet, 1 TAB PO Q6H Y for PAIN, #7 TAB Prov:DARVIN LIU PA-C 07/15/17 Hydrocodone/Acetaminophen (Ismay 5-325 Tablet) 1 Each Tablet, 1 TAB PO Q6H Y for PAIN, #7 TAB Prov:EMMA CRAFT PA-C 06/20/17 Ranitidine Hcl* (Zantac*) 150 Mg Tablet, 150 MG PO BID Y for EPIGASTRIC PAIN, # 30 TAB Prov:EMMA CRAFT PA-C 06/20/17 Pantoprazole* (Protonix*) 40 Mg Tablet.dr, 40 MG PO DAILY, #30 TAB Prov:EMMA CRAFT PA-C 06/20/17 Magaldrate/Simethicone* (Mylanta*) 355 Ml Susp, 30 ML PO QID Y for GASTROINTESTINAL UPSET, #1 BOTTLE Prov:MONICO BURCH. [employer] 06/12/17 Dicyclomine Hcl* (Bentyl*) 10 Mg Capsule, 10 MG PO QID Y for GASTROINTESTINAL UPSET, #20 CAP Prov:MONICO BURCH. [employer] 06/12/17 Omeprazole* (Omeprazole*) 20 Mg Capsule.dr, 20 MG PO DAILY, #20 Prov:JOVANNA BECKFORD PA-C 06/03/17 Famotidine* (Pepcid*) 20 Mg Tablet, 20 MG PO DAILY for 4 Days, TAB Prov:JOVANNA BECKFORD PA-C 06/03/17 Ondansetron (Ondansetron Odt) 4 Mg Tab.rapdis, 4 MG PO Q6H Y for NAUSEA AND/OR VOMITING, #20 TAB Prov:JOVANNA BECKFORD PA-C 06/03/17 Docusate Sodium* (Colace*) 100 Mg Capsule, 100 MG PO BID, #30 CAP Prov:JOVANNA BECKFORD PA-C 06/03/17 Ferrous Sulfate* (Ferrous Sulfate*) 325 Mg Tabec, 325 MG PO BID, #30 TAB Prov:JOVANNA BECKFORD PA-C 06/03/17 Ferrous Sulfate* (Ferrous Sulfate*) 325 Mg Tabec, 325 MG PO BID, #60 TAB Prov:NURYS SINGH NP 05/05/17 Pantoprazole* (Protonix*) 40 Mg Tablet.dr, 40 MG PO DAILY, #30 TAB Prov:NURYS SINGH NP 05/05/17 Allergies Allergies: Coded Allergies: No Known Allergy (Unverified , 06/12/17) PMhx/Soc History of Surgery: Yes (appendix, x 2, ovarian cyst) Anesthesia Reaction: No Hx Neurological Disorder: No Hx Respiratory Disorders: No Hx Cardiac Disorders: No Hx Psychiatric Problems: No Hx Miscellaneous Medical Probl: No Hx Alcohol Use: No Hx Substance Use: No Hx Tobacco Use: No Smoking Status: Never smoker Physical Exam Vitals Vital Signs Date Time Temp Pulse Resp B/P Pulse Ox O2 Delivery O2 Flow Rate FiO2 07/15/17 19:38 74 17 118/71 100 Room Air 07/15/17 15:38 98.1 98 18 132/97 99 Physical Exam GENERAL: The patient is well-appearing, well-nourished, in no acute distress HEENT: Atraumatic. Conjunctivae are pink. Pupils equal, round, and reactive to light. There is no scleral icterus. Tympanic membranes clear bilaterally. Oropharynx clear. No nystagmus or photophobia. NECK: C-spine is soft and supple. There is no meningismus. There is no cervical lymphadenopathy. CHEST: Clear to auscultation bilaterally. There are no rales, wheezes or rhonchi. HEART: Regular rate and rhythm. No murmurs, clicks, rubs or gallops. No S3 or S4. ABDOMEN:Soft, nondistended. Mild tenderness to right upper abd. Good bowel sounds. No rebound or guarding. No gross peritonitis. No gross organomegaly or masses. BACK: No midline or flank tenderness. Result Diagram: 07/15/17 17007/15/17 170 Results 24 hrs Laboratory Tests Test 07/15/17 17:00 White Blood Count 8.210^3/ul Red Blood Count 4.6610^6/ul Hemoglobin 10.1g/dl Hematocrit 33.5% Mean Corpuscular Volume 71.9fl Mean Corpuscular Hemoglobin 21.7pg Mean Corpuscular Hemoglobin Concent 30.1g/dl Red Cell Distribution Width 19.1% Platelet Count 77587^3/UL Mean Platelet Volume 10.6fl Neutrophils % 43.7% Lymphocytes % 43.3% Monocytes % 7.2% Eosinophils % 4.4% Basophils % 1.2% Nucleated Red Blood Cells % 0.0/100WBC Neutrophils # 3.610^3/ul Lymphocytes # 3.510^3/ul Monocytes # 0.610^3/ul Eosinophils # 0.410^3/ul Basophils # 0.110^3/ul Nucleated Red Blood Cells # 0.010^3/ul Urine Color STRAW Urine Clarity CLEAR Urine pH 6.0 Urine Specific [place] 1.005 Urine Ketones NEGATIVEmg/dL Urine Nitrite NEGATIVEmg/dL Urine Bilirubin NEGATIVEmg/dL Urine Urobilinogen NEGATIVEmg/dL Urine Leukocyte Esterase NEGATIVELeu/ul Urine Microscopic RBC 2/HPF Urine Microscopic WBC 0/HPF Urine Squamous Epithelial Cells FEW/HPF Urine Hemoglobin 1+mg/dL Urine Glucose NEGATIVEmg/dL Urine Total Protein NEGATIVEmg/dl Sodium Level 142mmol/L Potassium Level 3.7mmol/L Chloride Level 103mmol/L Carbon Dioxide Level 26mmol/L Anion Gap 17 Blood Urea Nitrogen 8mg/dl Creatinine 0.66mg/dl Glucose Level 96mg/dl Calcium Level 9.1mg/dl Total Bilirubin 0.0mg/dl Direct Bilirubin 0.00mg/dl Indirect Bilirubin 0.0mg/dl Aspartate Amino Transf (AST/SGOT) 32IU/L Alanine Aminotransferase (ALT/SGPT) 33IU/L Alkaline Phosphatase 122IU/L Total Protein 8.6g/dl Albumin 4.3g/dl Globulin 4.30g/dl Albumin/Globulin Ratio 1.00 Lipase 247U/L Current Medications Medications (Trade) Dose Ordered Sig/Morteza Route PRN Reason Start Time Stop Time Status Last Admin Dose Admin Sodium Chloride (NS) 1,000 ml @ 1,000 mls/hr Q1H STAT IV 07/15/17 16:58 07/15/17 17:57 DC 07/15/17 17:15 Morphine Sulfate (morphine) 4 mg ONCE STAT IV 07/15/17 16:58 07/15/17 17:00 DC 07/15/17 17:13 Ondansetron HCl (Zofran Inj) 4 mg ONCE STAT IV 07/15/17 16:58 07/15/17 17:00 DC 07/15/17 17:13 Ketorolac Tromethamine (Toradol) 30 mg ONCE STAT IV 07/15/17 16:58 07/15/17 17:00 DC 07/15/17 17:13 IV Flush 10 ml 10 ml STK-MED ONCE .ROUTE 07/15/17 18:46 07/15/17 18:47 DC 07/15/17 18:55 Sodium Chloride (NS) 100 ml @ ud STK-MED ONCE .ROUTE 07/15/17 18:46 07/15/17 18:47 DC 07/15/17 18:55 Iohexol (Omnipaque 300mg/ ml) 150 ml STK-MED ONCE .ROUTE 07/15/17 18:46 07/15/17 18:47 DC 07/15/17 18:55 Procedures/MDM DIAGNOSTIC IMAGING REPORT Patient: DEBBIE SHETTY : 1980 Age: 36 Sex: F MR #: [id number] DOS: 07/15/17 1818 Ordering MD: RAQUEL LIU PA-C Location: [facility] Room/Bed: PROCEDURE: CT Abdomen and Pelvis with contrast. CLINICAL INDICATION: recurring right upper quadrant pain TECHNIQUE: CT scan of the abdomen and pelvis with contrast was performed on a multi-detector high-resolution CT scanner. The patient was scanned following the uncomplicated intravenous administration of 100 cc of Omnipaque 300. Coronal and sagittal reformatted images were obtained from the axial source images. Images were reviewed on a high-resolution PACS workstation. The total exam CTDI equals 10.3 mGy and the total exam DLP equals 645 mGy-cm. DICOM images are available. One or more of the following dose reduction techniques were utilized: 1.) Automated exposure control 2.) Adjustment of the mA +/- kV according to patient's size 3.) Use of iterative reconstruction technique. COMPARISON: June 20, 2017 FINDINGS: Limited evaluation of the lung bases are clear. No pleural effusions. The superior edge of the liver extends beyond the superior edge of the scan is therefore not evaluated though the hepatic dome was normal on the recent prior CT of the abdomen and pelvis. No biliary dilatation. The portal vein is patent. Focal fatty infiltration is present along the falciform ligament of the liver. The spleen, bilateral adrenal glands, gallbladder, and pancreas are normal- appearing. The bilateral kidneys are normal-appearing without hydronephrosis nor suspicious renal mass. No nephrolithiasis. The small and large bowel are thin- walled and nondilated without evidence for obstruction. The appendix is not directly visualize though there are no secondary signs of appendicitis. Abdominal aorta is normal in course and caliber without dissection or aneurysm. Urinary bladder is decompressed. Grossly unremarkable. The uterus is grossly normal. A cystic structure in the left adnexa measuring approximately 16 mm may represent a dominant physiologic follicle. A second smaller cystic structure in the left adnexa is stable since the prior examination from a few weeks ago and may represent an additional ovarian follicle though it is incompletely evaluated by CT. No free air, free fluid, mesenteric stranding, nor abdominal pelvic adenopathy by imaging size criteria. IMPRESSION: No acute intra-abdominal process. The appendix is not identified though there are no secondary signs of appendicitis in the right lower quadrant. An explanation for the patient's abdominal pain is identified on this exam. DIAGNOSTIC IMAGING REPORT Patient: DEBBIE SHETTY : 1980 Age: 36 Sex: F MR #: [id number] DOS: 07/15/17 1658 Ordering MD: RAQUEL LIU PA-C Location: [facility] Room/Bed: PROCEDURE: Right upper quadrant ultrasound CLINICAL INDICATION: Abdominal pain TECHNIQUE: Multiple real-time images were acquired of the patient's abdomen and right retroperitoneum utilizing a high resolution transducer. COMPARISON: None FINDINGS: The liver is increased in echogenicity and measures 13.7 cm. No focal hepatic masses are seen. The gallbladder is physiologically distended. There is no evidence of gallstones, gallbladder wall thickening, or pericholecystic fluid. The intra and extrahepatic bile ducts are normal in caliber. The common bile duct measures 3.9 mm. Pancreas is suboptimally seen Survey views of the right kidney demonstrate no evidence of hydronephrosis or renal calculi. The right kidney measures 9.2 cm. IMPRESSION: 1. No evidence of cholelithiasis or acute cholecystitis. 2. Mild fatty liver. 3. Pancreas not visualized ER Course: 1NS given in ED. Toradol and Morphine given in ED. Patient's pain was well controlled. MDM: 36 yr old female complaining of abdominal pain. I have low suspicion for choledocholithiasis, cholecystitis, cholangitis, pancreatitis. I have low suspicion for bowel obstruction. I have low suspicion for nephrolithiasis or septic stones. I have low suspicion for appendicitis. I have low suspicion for pelvic emergency. I have low suspicion for cardiac or pulmonary abnormalities. Patient's pain is likely associated with viral etiology. Patient is told to follow-up with primary care within 1-2 days for close evaluation. Patient is told if symptoms change or worsen to return to the ER immediately. All questions answered at discharge Departure Diagnosis: Primary Impression: Abdominal pain Condition: Stable Patient Instructions: Abdominal Pain Referrals: [facility] YOU HAVE RECEIVED A MEDICAL SCREENING EXAM AND THE RESULTS INDICATE THAT YOU DO NOT HAVE A CONDITION THAT REQUIRES URGENT TREATMENT IN THE EMERGENCY DEPARTMENT. FURTHER EVALUATION AND TREATMENT OF YOUR CONDITION CAN WAIT UNTIL YOU ARE SEEN IN YOUR DOCTORS OFFICE WITHIN THE NEXT 1-2 DAYS. IT IS YOUR RESPONSIBILITY TO MAKE AN APPOINTMENT FOR FOLOW-UP CARE. IF YOU HAVE A PRIMARY DOCTOR --you should call your primary doctor and schedule an appointment IF YOU DO NOT HAVE A PRIMARY DOCTOR YOU CAN CALL OUR PHYSICIAN REFERRAL HOTLINE AT IF YOU CAN NOT AFFORD TO SEE A PHYSICIAN YOU CAN CHOSE FROM THE FOLLOWING [facility] [address] [facility] [address] [facility] [address] [facility] [address]. [facility] [address] [facility]. [facility] [address] Additional Instructions: FOLLOW UP WITH YOUR PRIMARY CARE PHYSICIAN TOMORROW.Return to this facility if you are not improving as expected. DARVIN LIU PA-C Jul 15, 2017 22:52
== END 2017-07-15 19:39 | disposition home or self-care (01) ==
LOC: FTE 15:36
DX: R10.11 Right upper quadrant pain (principal)
CPT/HCPCS: 36415; 74177; 76705; 80053; 81001; 83690; 85025; 96374; 96375; J1885; J2270; J2405; J7030; Q9967; Z7502; Z7610

== ENCOUNTER 2017-08-15 18:12 | Emergency (ER) | END 2017-08-15 22:06 | disposition home or self-care (01) ==

== ENCOUNTER 2017-09-17 19:27 | Emergency (ER) | END 2017-09-18 01:18 | disposition home or self-care (01) ==

== ENCOUNTER 2017-10-11 14:16 | Emergency (ER) | END 2017-10-11 16:56 | disposition home or self-care (01) ==

== ENCOUNTER 2017-11-10 14:06 | Emergency (ER) | END 2017-11-10 19:02 | disposition home or self-care (01) ==

== ENCOUNTER 2017-12-11 02:16 | Emergency (ER) | END 2017-12-11 05:18 | disposition home or self-care (01) ==

== ENCOUNTER 2018-01-29 20:08 | Emergency (ER) | END 2018-01-29 22:15 | disposition home or self-care (01) ==

== ENCOUNTER 2018-04-22 16:06 | Emergency (ER) | END 2018-04-22 20:45 | disposition home or self-care (01) ==

== ENCOUNTER 2018-07-19 13:23 | Inpatient (IN) | END 2018-07-22 18:45 | disposition home or self-care (01) | DRG 369 ==

== ENCOUNTER 2018-07-29 18:13 | Emergency (ER) | END 2018-07-29 18:30 | disposition left against medical advice (07) ==

== ENCOUNTER 2018-11-05 16:06 | Inpatient (IN) | payer MEDICAID ==
[~2018-11-05] VITALS: Ht 160 cm; Wt 61.4 kg
[~2018-11-05 16:06] MED LIST changes: +ACET325T33 PO; +ASC500 PO; +CITA20TA11 PO; -DICY10CA60 PO; -DOCU-144 PO; -FAMO-96 PO; -HYDR-906 PO; -MAG-19 PO; -OMEP20CA16 PO; -ONDA4TAB14 PO; -PANT40TA3 PO; -RANI150T9 PO; +TRAM50TA PO; +TRAM50TA2 PO
[2018-11-05] MEDS ORDERED: morphine 4 MG/ML VIAL IV STA (19:45)
[2018-11-05] MEDS ORDERED: ONDANSETRON 4 MG INJ IV STA (19:45)
[2018-11-05] MEDS ORDERED: HEPARIN 1000 UNITS/ML 10 ML INJ IV PRN ×2 (20:30)
[2018-11-05] MEDS ORDERED: HEPARIN 1000 UNITS/ML 10 ML INJ IV ONE (20:30)
--- NOTE | 2018-11-05 20:49 | ERD ---
ER Documentation Chief Complaint Chief Complaint pt is bib family with right leg swelling and pain x few days, HPI 38-year-old female presenting with right lower extremity pain. Her pain started yesterday morning at 8 AM. She complained of aching pain that radiated down her right leg but had no associated numbness or tingling. Her pain was not very severe initially but today in the afternoon, she suddenly felt worsening pain in her right lower extremity with tingling in her foot. Her pain is a 10 out of 10, stabbing and aching, radiating down her entire right leg. It is worse with movement and touch. No associated fevers or chills. No recent injuries to the lower extremity. She denies any associated back pain. No history of coagulation disorder, recent travel or immobilization, recent surgeries, oral contraceptive use, or estrogen use. No family history of coagulation disorder. She is currently not taking any medications. ROS All systems reviewed and are negative except as per history of present illness. Medications Home Meds Discontinued Reported Medications Tramadol Hcl* (Ultram*) 50 Mg Tablet, 50 MG PO NEEDED PRN for PAIN, TAB 09/24/18 Discontinued Scripts Acetaminophen* (Tylenol*) 325 Mg Tablet, 650 MG PO Q4H PRN for MILD PAIN(1-3)OR ELEVATED TEMP for 30 Days, #120 TAB 6 Refills Prov:LORNE DANIELS MD 09/27/18 Citalopram Hydrobromide* (Celexa*) 20 Mg Tablet, 20 MG PO DAILY for 30 Days, #30 TAB 6 Refills Prov:LORNE DANIELS MD 09/27/18 Ferrous Sulfate* (Ferrous Sulfate*) 325 Mg Tabec, 325 MG PO DAILY for 30 Days, #30 TAB 7 Refills Prov:LORNE DANIELS MD 09/27/18 Ascorbic Acid (Vitamin C) 500 Mg Tab, 500 MG PO BID for 30 Days, #60 TAB Prov:MAYRA GARCIA 07/22/18 Ferrous Sulfate* (Ferrous Sulfate*) 325 Mg Tabec, 325 MG PO BID for 30 Days, #60 TAB Prov:MAYRA GARCIA 07/22/18 Tramadol HCl (Tramadol HCl) 50 Mg Tablet, 50 MG PO Q6 PRN for PAIN, #20 TAB Prov:LASHAY ELAINE 01/29/18 Allergies Allergies: Coded Allergies: No Known Allergy (Unverified , 11/05/18) PMhx/Soc History of Surgery: Yes (EGD, colonoscopy) Anesthesia Reaction: Yes Hx Neurological Disorder: No Hx Respiratory Disorders: No Hx Cardiac Disorders: No Hx Psychiatric Problems: No Hx Miscellaneous Medical Probl: Yes (microcytic anemia) Hx Alcohol Use: No Hx Substance Use: No Hx Tobacco Use: No Smoking Status: Never smoker FmHx No coagulopathies Physical Exam Vitals Vital Signs Date Temp Pulse Resp B/P (MAP) Pulse Ox O2 O2 Flow FiO2 Time Delivery Rate 11/05/18 108 16 120/76 96 Room Air 22:22 (91) 11/05/18 98.9 112 18 118/83 97 Room Air 21:12 (95) 11/05/18 99.3 128 20 130/60 98 16:12 (83) Physical Exam Const: In distress secondary to pain, nontoxic Head: Atraumatic Eyes: Normal Conjunctiva ENT: Normal External Ears, Nose and Mouth. Neck: Full range of motion. No meningismus. Resp: Clear to auscultation bilaterally Cardio: Regular rate and rhythm, no murmurs. 2+ radial pulses bilaterally. 2+ DP and PT pulses in the left lower extremity. Right lower extremity without palpable DP or PT pulses. Abd: Soft, non tender, non distended. Normal bowel sounds Skin: No petechiae or rashes Back: No midline or flank tenderness Ext: Right lower extremity edema noted with tenderness to palpation below the calf. Right foot appears dusky, cool to touch, with no active range of motion at the ankle. Unable to dorsiflex. Unable to palpate DP or PT pulse on the right. Neur: Awake and alert, normal speech. No facial asymmetry. Motor strength decreased at the right ankle without ability to dorsiflex. Psych: Normal Mood and Affect Result Diagram: 11/05/18184911/05/181849 Results 24 hrs Laboratory Tests Test 11/05/18 18:50 11/05/18 20:23 11/05/18 20:38 White Blood Count 19.6 10^3/ul Red Blood Count 4.86 10^6/ul Hemoglobin 10.2 g/dl Hematocrit 33.9 % Mean Corpuscular Volume 69.8 fl Mean Corpuscular Hemoglobin 21.0 pg Mean Corpuscular 30.1 g/dl Hemoglobin Concent Red Cell Distribution Width 17.2 % Platelet Count 359 10^3/UL Mean Platelet Volume 10.6 fl Immature Granulocytes % 0.800 % Neutrophils % 78.9 % Lymphocytes % 12.5 % Monocytes % 7.3 % Eosinophils % 0.0 % Basophils % 0.5 % Nucleated Red Blood Cells % 0.0 /100WBC Immature Granulocytes # 0.150 10^3/ul Neutrophils # 15.4 10^3/ul Lymphocytes # 2.5 10^3/ul Monocytes # 1.4 10^3/ul Eosinophils # 0.0 10^3/ul Basophils # 0.1 10^3/ul Nucleated Red Blood Cells # 0.0 10^3/ul Prothrombin Time 13.5 Sec Prothrombin Time Ratio 1.1 INR International 1.02 Normalized Ratio Activated Partial Thromboplast 23.5 Sec Time Sodium Level 136 mmol/L Potassium Level 4.0 mmol/L Chloride Level 99 mmol/L Carbon Dioxide Level 26 mmol/L Anion Gap 11 Blood Urea Nitrogen 18 mg/dl Creatinine 1.06 mg/dl Est Glomerular Filtrat 57 mL/min Rate mL/min Glucose Level 149 mg/dl Calcium Level 8.8 mg/dl Troponin I < 0.012 ng/ml Serum HCG, Qualitative NEGATIVE Urine Color YELLOW Urine Clarity SLIGHTLY CLOUDY Urine pH 6.0 Urine Specific [place] 1.020 Urine Ketones NEGATIVE mg/dL Urine Nitrite NEGATIVE mg/dL Urine Bilirubin NEGATIVE mg/dL Urine Urobilinogen NEGATIVE mg/dL Urine Leukocyte Esterase NEGATIVE Saad/ul Urine Microscopic RBC 1 /HPF Urine Microscopic WBC 10 /HPF Urine Squamous Epithelial Cells FEW /HPF Urine Hemoglobin 3+ mg/dL Urine Glucose NEGATIVE mg/dL Urine Total Protein 2+ mg/dl POC Beta HCG, Qualitative NEGATIVE Current Medications Medications Dose Sig/Morteza Start Time Status Last (Trade) Ordered Route PRN Stop Time Admin Dose Reason Admin Morphine 4 mg ONCE STAT 11/05/18 DC 11/05/18 Sulfate IV 19:45 20:28 (morphine) 11/05/18 19:46 Ondansetron 4 mg ONCE STAT 11/05/18 DC 11/05/18 HCl (Zofran IV 19:45 20:28 Inj) 11/05/18 19:46 DC ONCE ONCE 11/05/18 DC Miscellaneous previous XX 20:30 hepa... 11/05/18 20:31 Information (* Miscellaneous Pharmacy Order) Heparin 6,100 unit ONCE ONCE 11/05/18 DC 11/05/18 Sodium IV 20:30 20:45 (Porcine) 11/05/18 20:31 (Heparin (1000 Units/ml)) Heparin 6,100 unit PER PROTOCOL 11/05/18 Sodium PRN IV 20:30 (Porcine) aPTT<47 (Heparin (1000 Units/ml)) Heparin 3,000 unit PER PROTOCOL 11/05/18 Sodium PRN IV 20:30 (Porcine) aPTT<47-57 (Heparin (1000 Units/ml)) Heparin 250 ml @ 0 PER 11/05/18 11/05/18 Sodium mls/hr PROTOCOL IV 20:30 21:03 (Porcine) IV Flush 10 ml STK-MED 11/05/18 DC (NS 10 ml) ONCE .ROUTE :11/05/18 21:27 Sodium 100 ml @ ud STK-MED 11/05/18 DC Chloride ONCE .ROUTE :11/05/18 21:27 Iohexol 100 ml @ ud STK-MED 11/05/18 DC ONCE .ROUTE :11/05/18 21:27 Procedures/MDM EMERGENT LABS AND DIAGNOSTIC STUDIES: Lab Results above were reviewed and interpreted by me. CBC: Leukocytosis with anemia, unclear etiology BMP: Mild creatinine elevation, consistent with acute kidney injury. No evidence of electrolyte abnormality or hypoglycemia Coags are within normal limits with no evidence of coagulopathy negative 12-lead EKG was interpreted by Karlene Tejeda MD: Sinus tachycardia at 114 bpm Normal axis Normal intervals Possible old inferior infarct with Q waves No acute ST or T wave changes suggestive of acute ischemia or STEMI. Radiology Results as interpreted by Radiology below were reviewed by Jose Tejeda MD: Venous ultrasound of the right lower extremity shows a DVT at the right popliteal vein and partial obstruction of the distal femoral vein Arterial ultrasound of the right lower extremity shows no flow in the right posterior tibial and DP arteries CTA of the right lower extremity: Initial Nursing notes reviewed. Previous Medical Records requested via the Electronic Health Record. EMERGENCY DEPARTMENT COURSE / MEDICAL DECISION MAKING: Patient is presenting with what seems to be a right ischemic limb with possible DVT. Patient does not have any risk factors for blood clots or emboli. Workup revealed right lower extremity DVT as well as poor arterial flow in her right foot. Patient was immediately started on heparin IV with a heparin bolus given. Her labs did show leukocytosis, likely a stress response. . I attempted to contact multiple vascular surgeons that are contracted with our hospital. None of the surgeons I contacted were available which included Dr. Navarro, Dr. Love, and Dr Dickey. As we do not have a call panel for vascular surgery, we started contacting other hospitals for transfer for higher level of care. Case was presented to [facility] and they declined patient for transfer to [facility] and [facility]. [facility] was directly contacted and they were unable to accept the patient due to capacity issues. [facility] was also contacted, they were unable to accept patient due to capacity. Spoke with vascular surgeon, Dr. Ramirez, at [facility] and he will not accept this patient. [facility], [facility], and [facility] are being contacted and I am awaiting response. I did a chart review on the patient and it seems she was here September 2018, about 1 month ago, for possible TIA and was admitted. Imaging did not show any evidence of stroke. She did have an echocardiogram done in September. The results are following: Conclusions: Normal left ventricular systolic function. Normal left ventricular cavity size. Normal left ventricular wall thickness. Ejection fraction is visually estimated at 55-60 %. Bubble study was performed with and with out valsalva indicating evidence of intra atrial shunt. Normal appearance of the mitral valve. Trace mitral regurgitation. Normal appearance of the tricuspid valve. There is trace to mild tricuspid regurgitation. Patient signed out to the oncoming ED physician, Dr. Bailey, who will assume care of the patient and follow up with transfer of this patient. Critical Care Time: 70 minutes Treatments/Evaluations: Close monitoring and treatment of unstable vital signs, cardiorespiratory, and neurologic status, while maintaining tight balance of fluid, respiratory, and cardiac interventions. This time includes discussing the case with the patient and the patients family. This time does not include all procedures stated elsewhere in this record. This time also includes reviewing old records, labs and radiological studies. This time includes examining and re-examining the patient. Additionally, this time also includes arranging care with admitting and consulting physicians. Departure Diagnosis: Primary Impression: Deep vein thrombosis (DVT) of right lower extremity Affected thrombotic vein of extremity: popliteal Chronicity: acute Qualified Codes: I82.431 - Acute embolism and thrombosis of right popliteal vein Additional Impression: Critical ischemia of lower extremity Condition: Critical MARY TEJEDA MD Nov 05, 2018 20:49
[2018-11-05] MEDS: HEPARIN 25000 UNITS/250 ML 250 ML IV SCH (21:03)
[2018-11-05] MEDS ORDERED: SOD CHLORIDE 0.9% 100 ML ONE (21:26)
[2018-11-05] MEDS ORDERED: IOHEXOL 100 ML ONE (21:26)
[2018-11-06] VITALS (38 sets, daily range): BP systolic 96–141; BP diastolic 53–87; PULSE 93–121; RESP 6–29; BMI 30.6
[2018-11-06] MEDS ORDERED: SOD CHLORIDE 0.9% 1,000 ML IV SCH (01:28)
[2018-11-06] MEDS ORDERED: ACETAMINOPHEN 650MG/20.3ML CUP PO PRN (01:30)
[2018-11-06] MEDS ORDERED: BISACODYL (EC) 5 MG TAB PO PRN (01:30)
[2018-11-06] MEDS ORDERED: DOCUSATE SODIUM 100 MG CAP PO PRN (01:30)
[2018-11-06] MEDS ORDERED: IPRATROPIUM (NEB) 0.5 MG/2.5 ML AMP NEB PRN (01:30)
[2018-11-06] MEDS ORDERED: BUPIVACAINE 0.5% (SDV) 30 ML INJ ONE (01:53)
[2018-11-06] MEDS ORDERED: GELATIN SIZE 100 SPONGE ONE (01:53)
[2018-11-06] MEDS ORDERED: THROMBIN 5000 UNIT VIAL ONE (01:54)
[2018-11-06] MEDS ORDERED: LIDOCAINE 1% (MPF) 30 ML INJ ONE (01:54)
[2018-11-06] MEDS ORDERED: HEPARIN 1000 UNITS/ML 10 ML INJ ONE ×2 (01:54→03:57)
--- NOTE | 2018-11-06 02:38 | PREAC ---
Date/Time of Note Date/Time of Note DATE: 11/06/18 TIME: Anesthesia Eval and Record Evaluation Time Pre-Procedure Interview DATE: 11/06/18 TIME: 33 Age 38 Sex female NPO: 8 hrs Preoperative diagnosis RT leg DVT Planned procedure Rt leg, Thrombectomy, Fasciotomy, angiogram Past Medical History Past Medical History: None Surgery & Anesthesia Issues No known issue Meds Anticoagulation: No Beta Alice within 24 hr: No Reason Beta Alice not given: Pt. not on B-Alice Discontinued Reported Medications Tramadol Hcl* (Ultram*) 50 Mg Tablet, 50 MG PO NEEDED PRN for PAIN, TAB 09/24/18 Discontinued Scripts Acetaminophen* (Tylenol*) 325 Mg Tablet, 650 MG PO Q4H PRN for MILD PAIN(1-3)OR ELEVATED TEMP for 30 Days, #120 TAB 6 Refills Prov:LORNE DANIELS MD 09/27/18 Citalopram Hydrobromide* (Celexa*) 20 Mg Tablet, 20 MG PO DAILY for 30 Days, #30 TAB 6 Refills Prov:LORNE DANIELS MD 09/27/18 Ferrous Sulfate* (Ferrous Sulfate*) 325 Mg Tabec, 325 MG PO DAILY for 30 Days, #30 TAB 7 Refills Prov:LORNE DANIELS MD 09/27/18 Ascorbic Acid (Vitamin C) 500 Mg Tab, 500 MG PO BID for 30 Days, #60 TAB Prov:MAYRA GARCIA 07/22/18 Ferrous Sulfate* (Ferrous Sulfate*) 325 Mg Tabec, 325 MG PO BID for 30 Days, #60 TAB Prov:MAYRA GARCIA 07/22/18 Tramadol HCl (Tramadol HCl) 50 Mg Tablet, 50 MG PO Q6 PRN for PAIN, #20 TAB Prov:CHELELASHAY 01/29/18 Current Medications Heparin Sodium (Porcine) (Heparin (1000 Units/ml)) 6,100 unit PER PROTOCOL PRN IV aPTT<47; Start 11/05/18 at 20:30 Heparin Sodium (Porcine) (Heparin (1000 Units/ml)) 3,000 unit PER PROTOCOL PRN IV aPTT<47-57; Start 11/05/18 at 20:30 Heparin Sodium (Porcine) 250 ml @ 0 mls/hr PER PROTOCOL IV Last administered on 11/05/18at 21:03; Admin Dose 13.5 MLS/HR; Start 11/05/18 at 20:30 Sodium Chloride 1,000 ml @ 80 mls/hr [id number] IV ; Start 11/06/18 at 01:28 Ondansetron HCl (Zofran Inj) 4 mg Q6H PRN IV NAUSEA AND/OR VOMITING; Start 10/16 11/02 at 01:30 Ipratropium [place] (Atrovent 0.02% (Neb)) 0.5 mg Q2H RESP THERAPY PRN NEB SHORTNESS OF BREATH; Start 11/06/18 at 01:30 Acetaminophen (Tylenol Liquid) 650 mg Q6H PRN PO PAIN LEVEL 1-3 OR FEVER; Start 11/06/18 at 01:30 Hydromorphone HCl (Dilaudid) 0.5 mg Q4H PRN IV PAIN LEVEL 7-10; Start 11/06/18 at 01:30 Docusate Sodium (Colace) 100 mg Q12H PRN PO CONSTIPATION; Start 11/06/18 at 01:30 Bisacodyl (Dulcolax) 5 mg DAILY PRN PO CONSTIPATION; Start 11/06/18 at 01:30 Famotidine (Pepcid Iv) 20 mg BID IV ; Start 11/06/18 at 09:00 Meds reviewed: Yes Allergies Coded Allergies: No Known Allergy (Unverified , 11/05/18) Allergies Reviewed: Yes Labs/Studies Labs Reviewed: Reviewed by anesthesiologist Result Diagram: 11/05/180 11/05/18 1850 Laboratory Tests 11/05/18 18:50 test: Negative Studies: ECG Pre-procedure Exam Last vitals Vital Signs Date Temp Pulse Resp B/P (MAP) Pulse Ox O2 O2 Flow FiO2 Time Delivery Rate 11/05/18 108 16 120/76 96 Room Air 22:22 (91) 11/05/18 98.9 21:12 Airway: Adequate mouth opening, Adequate thyromental dist Mallampati: Mallampati II Teeth: Normal Lung: Normal Heart: Normal ASA Physical Status ASA physical status: 3 Emergency: E Planned Anesthetic General/MAC: LMA Planned Pain Management Parenteral pain med Pre-operative Attestations Prior to commencing anesthesia and surgery, the patient was re-evaluated, there was verification of: *The patient's identity *The results of appropriate recent lab work and preoperative vital signs *The above evaluation not changing prior to induction *Anesthetic plan, risk benefits, alternative and complications discussed with patient/family; questions answered; patient/family understands, accepts and wishes to proceed. MAGUI KATHLEEN MD Nov 06, 2018 02:38
[2018-11-06] MEDS ORDERED: SEVOFLURANE 15 MIN ONE (02:42)
[2018-11-06] MEDS ORDERED: NA BICARB 50 MEQ/50 ML VIAL ONE (02:42)
[2018-11-06] MEDS ORDERED: MIDAZOLAM 1 MG/ML 2 ML INJ ONE (02:42)
[2018-11-06] MEDS ORDERED: PHENYLephrine (100 MCG/ML) 5ML SYG ONE ×2 (02:51→03:34)
[2018-11-06] MEDS ORDERED: IOHEXOL 300MG/ML 30 ML BTL ONE (03:35)
[2018-11-06] MEDS ORDERED: PHENYLephrine 10 MG INJ ONE ×2 (03:39→04:54)
[2018-11-06] MEDS ORDERED: ROCURONIUM 50 MG INJ ONE (05:04)
[2018-11-06] MEDS ORDERED: CEFAZOLIN 1 GM INJ ONE (05:04)
[2018-11-06] MEDS ORDERED: LIDOCAINE 2% (SDV) 5 ML INJ ONE (05:15)
[2018-11-06] MEDS ORDERED: ONDANSETRON 4 MG INJ ONE (05:15)
[2018-11-06] MEDS ORDERED: PROPOFOL 20 ML ONE (05:15)
--- NOTE | 2018-11-06 05:35 | PAC ---
Date/Time of Note Date/Time of Note DATE: 11/06/18 TIME: 05:34 Post-Anesthesia Notes Post-Anesthesia Note Last documented vital signs Vital Signs Date Temp Pulse Resp B/P (MAP) Pulse Ox O2 O2 Flow FiO2 Time Delivery Rate 11/05/18 108 16 120/76 96 Room Air 22:22 (91) 11/05/18 98.9 21:12 Activity: WNL Respiratory function: WNL Cardiovascular function: WNL Mental status: Baseline Pain reasonably controlled: Yes Hydration appropriate: Yes Nausea/Vomiting absent: Yes Comments BP:140/78, P:78, Spo2:100%, T:98,8 MAGUI KATHLEEN MD Nov 06, 2018 05:35
--- NOTE | 2018-11-06 05:43 | SIPON ---
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
[2018-11-06] MEDS: HYDROmorphONE 0.5 MG/0.5 ML SYG IV PRN ×3 (05:53→22:46)
--- NOTE | 2018-11-06 05:59 | HP ---
Date/Time of Note Date/Time of Note DATE: 11/06/18 TIME: 05:59 Assessment/Plan VTE Prophylaxis Pharmacological prophylaxis: heparin Lines/Catheters IV Catheter Type (from [facility]): Peripheral IV Assessment/Plan Hospital Course This is a 38-year-old female being admitted to the ICU floor for: #1 Right lower extremity DVT with ischemia: Patient was found to have a right lower extremity DVT on ultrasound as well as occlusion on CT imaging. Multiple efforts were made to secure the services of vascular surgery as well as to try to transfer the patient had a level of care, fortunately graciously came to see and evaluate the patient. Patient at the current time will be taken to the OR for immediate intervention. She is currently on a heparin drip. Further recommendations will be as per the clinical course. #2 Iron deficiency anemia: Previous iron stores in September to reflect iron deficiency. Will recheck iron stores and ferritin labs to assess need for IV Ferrlecit. #3 AK I: Likely secondary to hemodynamics, mild dehydration. IV fluid hydration with normal saline. Monitor renal function. Avoid nephrotoxic agents. #4 Prediabetes: Recent hemoglobin A1c 6.2, encourage diet and lifestyle modification #5 obesity: Encourage diet and exercise, patient has prediabetes please see #4. TSH was within normal values during previous admission. #6 DVT GI prophylaxis: Heparin GTT, Protonix Further treatment strategy will be implemented as per clinical course Greater than 45 minutes critical care time was spent on the care managers patient. Result Diagram: 11/05/18 1850 11/05/18 1850 Results 24hrs Laboratory Tests Test 11/05/18 18:50 11/05/18 20:23 11/05/18 20:38 White Blood Count 19.6 #H Red Blood Count 4.86 Hemoglobin 10.2 L Hematocrit 33.9 L Mean Corpuscular Volume 69.8 L Mean Corpuscular Hemoglobin 21.0 L Mean Corpuscular 30.1 L Hemoglobin Concent Red Cell Distribution Width 17.2 H Platelet Count 359 Mean Platelet Volume 10.6 H Immature Granulocytes % 0.800 H Neutrophils % 78.9 H Lymphocytes % 12.5 L Monocytes % 7.3 Eosinophils % 0.0 Basophils % 0.5 Nucleated Red Blood Cells % 0.0 Immature Granulocytes # 0.150 H Neutrophils # 15.4 H Lymphocytes # 2.5 Monocytes # 1.4 H Eosinophils # 0.0 Basophils # 0.1 Nucleated Red Blood Cells # 0.0 Prothrombin Time 13.5 Prothrombin Time Ratio 1.1 INR International 1.02 Normalized Ratio Activated Partial Thromboplast 23.5 Time Sodium Level 136 Potassium Level 4.0 Chloride Level 99 Carbon Dioxide Level 26 Anion Gap 11 Blood Urea Nitrogen 18 Creatinine 1.06 H Est Glomerular Filtrat 57 L Rate mL/min Glucose Level 149 Calcium Level 8.8 Troponin I < 0.012 Serum HCG, Qualitative NEGATIVE Urine Color YELLOW Urine Clarity SLIGHTLY CLOUDY A Urine pH 6.0 Urine Specific [place] 1.020 Urine Ketones NEGATIVE Urine Nitrite NEGATIVE Urine Bilirubin NEGATIVE Urine Urobilinogen NEGATIVE Urine Leukocyte Esterase NEGATIVE Urine Microscopic RBC 1 Urine Microscopic WBC 10 H Urine Squamous FEW Epithelial Cells Urine Hemoglobin 3+ H Urine Glucose NEGATIVE Urine Total Protein 2+ H POC Beta HCG, Qualitative NEGATIVE HPI/ROS Admit Date/Time Admit Date/Time Nov 06, 2018 at 01:33 Hx of Present Illness Chief complaint: Right lower leg pain times 2 days Patient was seen at approximately 1:35 AM This is a 38-year-old female presenting with right lower extremity pain. Her pain started yesterday morning at 8 AM. She complained of aching pain that radiated down her right leg but had no associated numbness or tingling. Her pain was not very severe initially but today in the afternoon, she suddenly felt worsening pain in her right lower extremity with tingling in her foot. Her pain is a 10 out of 10, stabbing and aching, radiating down her entire right leg. It is worse with movement and touch. No associated fevers or chills. No recent injuries to the lower extremity. She denies any associated back pain. No history of coagulation disorder, recent travel or immobilization, recent surgeries, oral contraceptive use, or estrogen use. No family history of coagulation disorder. She is currently not taking any medications. Patient's right lower extremity was significant for swelling as well as a mottled appearance and it was cold to touch. And pulses were not palpable. Imaging studies of the right lower extremity were consistent with a partially occluding DVT along with occluded flow of the right lower extremity. The emergency department doctors emergently tried to secure the services of multiple vascular surgeons as well as try the transfer the patient to higher level of care for emergent intervention for a number of hours, they were able to obtain the servic es of who is now at the bedside and who will be proceeding to the operating room for emergent intervention. ROS Const: As per HPI Eyes : No pain discharge or redness or change in visual acuity ENT: No pain, sore throat, congestion, congestion, dysphagia or discharge Respiratory: No shortness of breath, cough, sputum, wheezing, or pleuritic pain Cardiovascular: No chest pain, palpitation, PND, or edema GI : no change in appetite, abdominal pain, nausea, vomiting, diarrhea, constipation, or change in the color his stool Genitourinary: No dysuria, hematuria, flank pain , discharge or CVA tenderness Musculoskeletal: As per HPI Skin: As per HPI Neuro: No headache, dizziness, syncope, seizure, focal weakness Endocrine: No polyuria, polydipsia, temperature intolerance Psych: No hallucination, depression, anxiety or suicidal ideation PMH/Family/Social Past Medical History Microcytic anemia, iron deficiency Medications Current Medications Heparin Sodium (Porcine) (Heparin (1000 Units/ml)) 6,100 unit PER PROTOCOL PRN IV aPTT<47; Start 11/05/18 at 20:30 Heparin Sodium (Porcine) (Heparin (1000 Units/ml)) 3,000 unit PER PROTOCOL PRN IV aPTT<47-57; Start 11/05/18 at 20:30 Heparin Sodium (Porcine) 250 ml @ 0 mls/hr PER PROTOCOL IV Last administered on 11/05/18at 21:03; Admin Dose 13.5 MLS/HR; Start 11/05/18 at 20:30 Sodium Chloride 1,000 ml @ 80 mls/hr [id number] IV Last administered on 11/06/18at 05:51; Admin Dose 80 MLS/HR; Start 11/06/18 at 01:28 Ondansetron HCl (Zofran Inj) 4 mg Q6H PRN IV NAUSEA AND/OR VOMITING; Start 11/06/18 at 01:30 Ipratropium [place] (Atrovent 0.02% (Neb)) 0.5 mg Q2H RESP THERAPY PRN NEB SHORTNESS OF BREATH; Start 11/06/18 at 01:30 Acetaminophen (Tylenol Liquid) 650 mg Q6H PRN PO PAIN LEVEL 1-3 OR FEVER; Start 11/06/18 at 01:30 Hydromorphone HCl (Dilaudid) 0.5 mg Q4H PRN IV PAIN LEVEL 7-10 Last administered on 11/06/18at 05:53; Admin Dose 0.5 MG; Start 11/06/18 at 01:30 Docusate Sodium (Colace) 100 mg Q12H PRN PO CONSTIPATION; Start 11/06/18 at 01:30 Bisacodyl (Dulcolax) 5 mg DAILY PRN PO CONSTIPATION; Start 11/06/18 at 01:30 Famotidine (Pepcid Iv) 20 mg BID IV ; Start 11/06/18 at 09:00 Morphine Sulfate (morphine (REC)) 2 mg PACU ORDER PRN IV MILD PAIN 1-3; Start 11/06/18 at 06:00; Stop 11/06/18 at 10:00 Morphine Sulfate (morphine (REC)) 4 mg PACU ORDER PRN IV MOD PAIN 4-6; Start 11/06/18 at 06:00; Stop 11/06/18 at 10:00 Fentanyl (Sublimaze) 25 mcg PACU ORDER PRN IV MILD PAIN 1-3; Start 11/06/18 at 0 6:00; Stop 11/06/18 at 10:00 Ondansetron HCl (Zofran Inj) 4 mg PACU ORDER PRN IV NAUSEA/VOMITING; Start 11/06/18 at 06:00; Stop 11/06/18 at 10:00 Metoclopramide HCl (Reglan) 10 mg PACU ORDER PRN IV NAUSEA/VOMITING; Start 11/06/18 at 06:00; Stop 11/06/18 at 10:00 Meperidine HCl (Demerol) 25 mg PACU ORDER PRN IV .RIGORS; Start 11/06/18 at 06:00; Stop 11/06/18 at 10:00 Diphenhydramine HCl (Benadryl) 25 mg PACU ORDER PRN IV .PRURITUS; Start 11/06/18 at 06:00; Stop 11/06/18 at 10:00 Coded Allergies: No Known Allergy (Unverified , 11/05/18) Past Surgical History x2, appendectomy Family History Significant Family History: no pertinent family hx Social History Alcohol Use: none Smoking Status: Never smoker Drug Use: none Exam/Review of Systems Vital Signs Vitals Vital Signs Date Temp Pulse Resp B/P (MAP) Pulse Ox O2 O2 Flow FiO2 Time Delivery Rate 3/22/19 108 16 120/76 96 Room Air 22:22 (91) 11/05/18 98.9 21:12 Intake and Output 11/05/18 11/05/18 11/06/18 1515:00 23:00 07:00 IntakeIntake Total 1500 ml OutputOutput Total 250 ml BalanceBalance 1250 ml Exam Exam General: Patient currently lying in bed she does appear to be in moderate distress from pain in the right lower extremity HEENT: Atraumatic, normocephalic. The pupils are equal, round and reactive. Extraocular motor are intact Neck: Supple with full range of motion. No rigidity or meningismus Chest: Nontender Lungs: Clear to auscultation bilaterally no crackles rales or wheezing Heart: Sinus bradycardia Abdomen: Soft , nontender, nondistended , bowel sounds are present. No guarding no rebound tenderness , No masses or organomegaly. No costovertebral temporal angle mass Extremities: Right lower extremity: Swelling noted, cool to touch, mottled appearance, distal pulses not palpable Skin: Right lower extremity: Cool to touch, mottled appearance Neurologic: Normal mental status, speech normal, cranial nerves II through XII intact Additional Comments PROCEDURE: CT lower extremity angiogram CLINICAL INDICATION: 38-year-old female. Right lower extremity ischemia. TECHNIQUE: A CT angiogram of the right lower extremity was performed on a mu lti-slice CT scanner utilizing high-resolution axial imaging after the uneventful intravenous administration of contrast. Delayed high-resolution axial images were performed through the distal lower extremities and feet. 3-D reformats were made. Sagittal and coronal reformatted images were made. One or more the following dose reduction techniques were utilized: Automated exposure control, adjustment of the mA/ or kV according to patient's size, or use of iterative reconstruction technique. DICOM images are available for review. The CTDIvol is 62.64 mGy and the DLP is 648.35 mGycm. CONTRAST; COMPARISON: None. FINDINGS: In the right external iliac artery, common femoral artery, superficial and deep femoral arteries and popliteal artery are patent. There is mild new diffuse narrowing of the popliteal artery at the level of the proximal tibia. No intraluminal filling defect. There is contrast desiccation of the proximal posterior tibial artery which becomes occluded at the proximal calf level. The peroneal artery is occluded at the mid calf level. The anterior tibial artery gradually narrows, with no significant contrast desiccation identified in the level of the distal foreleg, proximal to the ankle. No contrast opacified arteries are identified at the level of the ankle, hindfoot, midfoot or forefoot. The osseous structures are intact. IMPRESSION: 1. No contrast opacified arteries are identified at the level of the ankle or foot. 2. The posterior tibial artery is occluded at the level of the proximal calf, the peroneal artery at the mid flash level and the anterior tibial artery and the distal calf level. 3. Smooth segmental narrowing of the distal popliteal artery. No hemodynamically significant stenosis or intraluminal filling defect. 3. Normal appearing arterial structures proximal to the distal popliteal artery. RPTAT: HLRS Physician Ari Date Time Electronically viewed and signed by Aisha Chaparro Physician on 11/05/2018 23:02 RS/ CC: MARY UMANA MD [id number] PROCEDURE: XR Chest. CLINICAL INDICATION: chest pain TECHNIQUE: Single frontal view of the chest was obtained COMPARISON: None FINDINGS: The heart and mediastinum are within normal limits. The lungs are clear. There is no pleural effusion or pneumothorax. RPTAT: AA IMPRESSION: No acute disease. .Abiel Galdamez MD, MD Date Time Electronically viewed and signed by .Abiel Galdamez MD, MD on 11/05/2018 20:32 .S/ CC: ANA MARÍA GALEANO MD [id number] AMENDMENT: 11/05/2018 8:23:54 PM Abiel Galdamez M.d A call report was made and the findings discussed with the ER physician at 11/05/2018 8:23:39 PM. PROCEDURE: US Lower extremity Venous. CLINICAL INDICATION: Right leg edema TECHNIQUE: Multiple sonographic images of the right lower extremity deep venous system was obtained utilizing grayscale, color-flow, compressive sonography and doppler imaging with augmentation. The images were reviewed on a PACS workstation. COMPARISON: None. FINDINGS: There is normal compressibility and flow within the right common femoral, proximal and mid femoral veins. The right popliteal vein is not compressible, consistent with DVT.. There is also partial DVT in the right distal femoral vein. There is partial DVT in the right posterior tibial vein. The right peroneal vein is not seen. RPTAT: AA IMPRESSION: DVT within the right popliteal vein. Partial DVT in the right distal femoral vein and right posterior tibial vein. .Abiel Galdamez MD, MD Date Time Electronically viewed and signed by .Abiel Galdamez MD, MD on 11/05/2018 20:23 .S/ CC: ANA MARÍA GALEANO MD [id number] EKG Sinus tachycardia at 114 bpm Normal axis Normal intervals Possible old inferior infarct with Q waves No acute ST or T wave changes suggestive of acute ischemia or STEMI. SHYAM WELLS Nov 06, 2018 05:59
[2018-11-06] MEDS ORDERED: METOCLOPRAMIDE 10 MG INJ IV PRN (06:00)
[2018-11-06] MEDS ORDERED: MEPERIDINE 25 MG INJ IV PRN (06:00)
[2018-11-06] MEDS ORDERED: PANTOPRAZOLE 40 MG INJ IV SCH (06:00)
[2018-11-06] MEDS ORDERED: morphine (1 MG/ML) 10ML SYRINGE IV PRN ×2 (06:00)
[2018-11-06] MEDS ORDERED: FENTAnyl 50 MCG/ML VIAL IV PRN (06:00)
[2018-11-06] MEDS ORDERED: DIPHENHYDRAMINE 50 MG INJ IV PRN (06:00)
[2018-11-06] MEDS ORDERED: ONDANSETRON 4 MG INJ IV PRN (06:00)
--- NOTE | 2018-11-06 06:47 | CONS ---
DATE OF ADMISSION: 11/06/2018 DATE OF CONSULTATION: 11/06/2018 TIME: APPROXIMATELY 0200 HOURS. TYPE OF CONSULTATION: Vascular surgery. REQUESTING PHYSICIAN: Dr. French. CLINICAL SUMMARY: This is a 38-year-old female who experienced right-sided hip pain several days ago . Yesterday she noted swelling in her right leg. At 4:00 p.m. on 11/05/2018 her daughter told her t o go to the Emergency Room. Her right foot felt cold. She presented to [facility] ED, at a pproximately 1740 hours. Multiple tests and CT angiogram of the lower extremity were performed. ALLERGIES: She has no known allergies. PAST MEDICAL HISTORY: No previous operations. MEDICATIONS: Takes no medications. SOCIAL HISTORY: Nonsmoker, nondrinker. She has 4 children, ages 23, 21, 10 and 7. Lower extremity Doppler at 1950 hours on 11/05/2018 showed decreased flow in the popliteal and po sterior tibial artery. There is absent dorsalis pedis pulse. CT angiogram of the leg showed no cont rast at the ankle level or the foot. Right posterior tibial artery is occluded in the proximal calf, anterior tibial occluded in the distal calf, peroneal artery mid-calf occlusion. REVIEW OF SYSTEMS: Not obtainable given the language barrier. PHYSICAL EXAMINATION: GENERAL: Patient is alert, oriented. He is able to converse in Green[place]ic. FRANCH[employer] student, transl ated into Green[place]ic. VITAL SIGNS: Blood pressure systolic, pulse 90, respirations 18. HEENT: Atraumatic, normocephalic. Sclerae are anicteric. Nose, mouth and throat clear. NECK: Supple. CHEST: Clear to percussion and auscultation. HEART: Regular rate and rhythm. IMAGING: Abdomen protuberant. Normal bowel sounds soft. The right lower extremity is swollen and w arm down to the level of the ankle, which is cold, mottled and cyanotic. The right hip and calf appe ar to be more swollen and the calf appears quite tense. The patient's anesthetic one handbreadth bel ow the knee on the right side, I can auscultate a right-sided popliteal Doppler signal, but nothing b elow that. The patient cannot move her right ankle or toes and the right foot is cyanotic behind the right heel. ASSESSMENT: Right-sided deep vein thrombosis on the right side, acute right leg arterial insufficien cy, although this is getting to be approximately 9 hours after admission. The patient appears to be experiencing early gangrene of the right lower extremity from the calf to the toes. PLAN: The patient has been placed on IV heparin drip. Plan for a fasciotomy, thrombectomy and possi ble angiogram of the right lower extremity. This was explained to the patient in [place]ic. Potential for blood transfusion were explained. No guarantees were given and the possibility of amputation sh ould gangrene set in was documented. Complications include but not limited to anesthesia, bleeding, infection and proceeding with amputation. Dictated By: ANIKA PLUNKETT MD RY/NTS Conf#: [id number] DID#: [id number] CC: SHYAM WELLS MD; MERECDES FRENCH MD;*EndCC*
--- NOTE | 2018-11-06 06:54 | OPR ---
DATE OF OPERATION: 11/06/2018 PREOPERATIVE DIAGNOSES: Deep vein thrombosis right leg, arterial insufficiency right leg, compartmen t syndrome right leg, arterial insufficiency right leg, compartment syndrome right leg. POSTOPERATIVE DIAGNOSES: Deep vein thrombosis right leg, arterial insufficiency right leg, compartme nt syndrome right leg, arterial insufficiency right leg, compartment syndrome right leg. OPERATIVE PROCEDURE: Three compartment fasciotomy right calf, Norberto thrombectomy right posterior t ibial artery. SURGEON: Rex Poe MD ANESTHESIA: General LMA. ANESTHESIOLOGIST: Dr. Avila. DESCRIPTION OF PROCEDURE: The patient was brought to the operating room and placed on the operating table in supine position. After induction of general LMA anesthesia, the abdomen and bilateral legs were prepped and draped with ChloraPrep. A medial incision was made in the calf from the popliteal r egion down to just above the medial malleolus. Superficial and deep fasciotomies were performed with instant bulging of edematous muscle, although the muscle did appear to be mostly viable. Anterior c ompartment fasciotomy was performed on the lateral aspect of the leg in a similar fashion. Multiple bleeders were cauterized. The patient was systemically heparinized with 5000 units of heparin. The posterior tibial artery was dissected free and controlled proximally and distally with small vessel l oops. An enlarged arteriotomy was made. There was slow arterial bleeding. A #2 Norberto catheter wa s passed up to 50 cm proximally and no clot was extracted; however, arterial bleeding was much more b risk. The arteriotomy was closed with interrupted 7-0 Prolene suture. Attention was then directed t oward the dorsalis pedis region in the anterior tibial artery was attempted to be localized; however, I could not find it within the dissection. The foot appeared to become less cyanotic and had [address] refill. This was felt to be adequate. Hemostasis was achieved with electrocautery. Th e wounds were then packed with Xeroform gauze, fluffed 4 x 4's and a loose Kerlix roll. Estimated blood loss 250 mL. Sponge and needle counts correct. Dictated By: REX GRAVES/CAIN Conf#: [id number] DID#: [id number] CC: SHYAM WELLS MD;*End*
[2018-11-06] MEDS: D5W-0.45 NACL + KCL 20 MEQ 1,000 ML IV SCH ×2 (07:57→17:26)
[2018-11-06] MEDS: HYDROmorphONE 1 MG/ML SYG IV PRN ×4 (08:56→20:16)
[2018-11-06] MEDS: FAMOTIDINE 20 MG INJ IV SCH ×2 (08:56→20:15)
[2018-11-06] MEDS: HEPARIN 25000 UNITS/250 ML 250 ML IV SCH (09:21)
--- NOTE | 2018-11-06 09:45 | PN ---
Date/Time of Note Date/Time of Note DATE: 11/06/18 TIME: 09:37 Assessment/Plan VTE Prophylaxis SCD applied (from Nsg): No SCD contraindicated: other (surgery) Pharmacological prophylaxis: heparin Lines/Catheters IV Catheter Type (from Nrsg): Peripheral IV Urinary Cath still in place: Yes Reason Cath still needed: other (indicate) (postoperative) Assessment/Plan Assessment/Plan 38 yo woman no major PMH presents with RLE acute limb ischemia plus DVT. # Right lower extremity DVT with ischemia: - Patient was found to have a right lower extremity DVT on ultrasound as well as occlusion on CT imaging. - Now s/p Three compartment fasciotomy right calf, Norberto thrombectomy right posterior tibial artery by Dr. Poe (11/06) - Heparin gtt per vascular surgery. # Iron deficiency anemia: Previous iron stores in September to reflect iron deficiency. Will recheck iron stores and ferritin labs to assess need for IV Ferrlecit. # AK I: Likely secondary to hemodynamics, mild dehydration. IV fluid hydration until tolerating diet. Monitor renal function. Avoid nephrotoxic agents. # Prediabetes: Recent hemoglobin A1c 6.2, encourage diet and lifestyle modification. Monitor blood sugars while inpatient. # obesity: Encourage diet and exercise, patient has prediabetes please see #4. TSH was within normal values during previous admission. # DVT GI prophylaxis: Heparin GTT, Protonix Result Diagram: 11/06/18 0544 11/06/18 0544 Subjective 24 Hr Interval Summary Free Text/Dictation No acute overnight events. Pain controlled well on dilaudid. Patient drowsy but arousable postoperatively. Breathing comfortably on nasal cannula. On heparin gtt. Exam/Review of Systems Exam Vitals Vital Signs Date Temp Pulse Resp B/P (MAP) Pulse Ox O2 O2 Flow FiO2 Time Delivery Rate 11/06/18 98 08:23 11/06/18 18 106/57 100 Nasal 2.0 06:00 (73) Cannula 11/06/18 27 05:31 11/06/18 98.0 05:17 Intake and Output 11/05/18 11/05/18 11/06/18 1515:00 23:00 07:00 IntakeIntake Total 1500 ml OutputOutput Total 250 ml BalanceBalance 1250 ml Exam General: Well developed woman drowsy but arousable, no distress, under aileen hugger HEENT: Atraumatic, normocephalic. Neck: Supple with full range of motion. No rigidity or meningismus Chest: Nontender Lungs: Clear to auscultation bilaterally no crackles rales or wheezing Heart: Sinus tachy, no murmurs Abdomen: Soft , nontender, nondistended. No guarding no rebound tenderness , Extremities: Right lower extremity: Skin: Right lower extremity: Dressing clean. Mild swelling. No palpable DP pulse. <2 sec cap refill. Left foot has 2+ DP pulse and is warm. Results Results 24hrs Laboratory Tests Test 11/05/18 18:50 11/05/18 20:23 11/05/18 20:38 11/06/18 05:44 White Blood Count 19.6 #H 33.7 #H Red Blood Count 4.86 4.03 L Hemoglobin 10.2 L 8.6 L Hematocrit 33.9 L 29.1 L Mean Corpuscular 69.8 L 72.2 L Volume Mean Corpuscular 21.0 L 21.3 L Hemoglobin Mean Corpuscular 30.1 L 29.6 L Hemoglobin Concen t Red Cell 17.2 H 17.2 H Distribution Width Platelet Count 359 307 Mean Platelet 10.6 H 10.9 H Volume Immature 0.800 H 1.200 H Granulocytes % Neutrophils % 78.9 H Lymphocytes % 12.5 L Monocytes % 7.3 Eosinophils % 0.0 Basophils % 0.5 Nucleated Red 0.0 0.0 Blood Cells % Immature 0.150 H 0.390 H Granulocytes # Neutrophils # 15.4 H Lymphocytes # 2.5 Monocytes # 1.4 H Eosinophils # 0.0 Basophils # 0.1 Nucleated Red 0.0 Blood Cells # Prothrombin Time 13.5 16.7 #H Prothrombin Time 1.1 1.3 Ratio INR International 1.02 1.34 Normalized Ratio Activated 23.5 > 180.0 *H Partial Thrombopl ast Time Sodium Level 136 140 Potassium Level 4.0 4.1 Chloride Level 99 105 Carbon Dioxide 26 26 Level Anion Gap 11 9 Blood Urea 18 14 Nitrogen Creatinine 1.06 H 0.91 Est Glomerular 57 L > 60 Filtrat Rate mL/min Glucose Level 149 171 Calcium Level 8.8 7.0 L Troponin I < 0.012 < 0.012 Serum HCG, NEGATIVE Qualitative Urine Color YELLOW Urine Clarity SLIGHTLY CLOUDY A Urine pH 6.0 Urine Specific 1.020 [place] Urine Ketones NEGATIVE Urine Nitrite NEGATIVE Urine Bilirubin NEGATIVE Urine NEGATIVE Urobilinogen Urine Leukocyte NEGATIVE Esterase Urine Microscopic 1 RBC Urine Microscopic 10 H WBC Urine Squamous FEW Epithelial Cells Urine Hemoglobin 3+ H Urine Glucose NEGATIVE Urine Total 2+ H Protein POC Beta HCG, NEGATIVE Qualitative Segmented 88 H Neutrophils % (Manual) Band Neutrophils 8 H % (Manual) Lymphocytes % 3 L (Manual) Monocytes % 1 (Manual) Neutrophils # 30.5 H (Manual) Band Neutrophils 2.6 H # Lymphocytes 1.0 (Manual) Monocytes # 0.3 (Manual) Platelet Estimate NORMAL Polychromasia 2+ Hypochromasia 1+ Poikilocytosis 1+ Anisocytosis 1+ Microcytosis 2+ Ovalocytes 1+ Magnesium Level 2.3 Total Bilirubin 0.2 Direct Bilirubin 0.00 Indirect 0.2 Bilirubin Aspartate Amino 1297 H Transf (AST/SGOT) Alanine 228 H Aminotransferase (ALT/SGPT) Alkaline 115 Phosphatase Creatine Kinase Creatine Kinase 0.1 Index Creatinine Kinase 72.20 H MB (Mass) Total Protein 6.0 L Albumin 2.8 L Globulin 3.20 Albumin/Globulin 0.87 Ratio Test 11/06/18 07:48 Activated 85.3 *H Partial Thrombopl ast Time Medications Medication Current Medications Heparin Sodium (Porcine) (Heparin (1000 Units/ml)) 6,100 unit PER PROTOCOL PRN IV aPTT<47; Start 11/05/18 at 20:30 Heparin Sodium (Porcine) (Heparin (1000 Units/ml)) 3,000 unit PER PROTOCOL PRN IV aPTT<47-57; Start 11/05/18 at 20:30 Heparin Sodium (Porcine) 250 ml @ 0 mls/hr PER PROTOCOL IV Last administered on 11/06/18at 09:21; Admin Dose 11 MLS/HR; Start 11/05/18 at 20:30 Ondansetron HCl (Zofran Inj) 4 mg Q6H PRN IV NAUSEA AND/OR VOMITING; Start 11/06/18 at 01:30 Ipratropium [place] (Atrovent 0.02% (Neb)) 0.5 mg Q2H RESP THERAPY PRN NEB SHORTNESS OF BREATH; Start 11/06/18 at 01:30 Acetaminophen (Tylenol Liquid) 650 mg Q6H PRN PO PAIN LEVEL 1-3 OR FEVER; Start 11/06/18 at 01:30 Hydromorphone HCl (Dilaudid) 0.5 mg Q4H PRN IV PAIN LEVEL 7-10 Last administered on 11/06/18at 05:53; Admin Dose 0.5 MG; Start 11/06/18 at 01:30 Docusate Sodium (Colace) 100 mg Q12H PRN PO CONSTIPATION; Start 11/06/18 at 01:30 Bisacodyl (Dulcolax) 5 mg DAILY PRN PO CONSTIPATION; Start 11/06/18 at 01:30 Famotidine (Pepcid Iv) 20 mg BID IV Last administered on 11/06/18at 08:56; Admin Dose 20 MG; Start 11/06/18 at 09:00 Morphine Sulfate (morphine (REC)) 2 mg PACU ORDER PRN IV MILD PAIN 1-3; Start 11/06/18 at 06:00; Stop 11/06/18 at 10:00 Morphine Sulfate (morphine (REC)) 4 mg PACU ORDER PRN IV MOD PAIN 4-6; Start 11/06/18 at 06:00; Stop 11/06/18 at 10:00 Fentanyl (Sublimaze) 25 mcg PACU ORDER PRN IV MILD PAIN 1-3; Start 11/06/18 at 06:00; Stop 11/06/18 at 10:00 Ondansetron HCl (Zofran Inj) 4 mg PACU ORDER PRN IV NAUSEA/VOMITING; Start 11/06/18 at 06:00; Stop 11/06/18 at 10:00 Metoclopramide HCl (Reglan) 10 mg PACU ORDER PRN IV NAUSEA/VOMITING; Start 11/06/18 at 06:00; Stop 11/06/18 at 10:00 Meperidine HCl (Demerol) 25 mg PACU ORDER PRN IV .RIGORS; Start 11/06/18 at 06:00; Stop 11/06/18 at 10:00 Diphenhydramine HCl (Benadryl) 25 mg PACU ORDER PRN IV .PRURITUS; Start 11/06/18 at 06:00; Stop 11/06/18 at 10:00 Potassium Chloride/Dextrose/ Sod Cl 1,000 ml @ 100 mls/hr Q10H IV Last administered on 11/06/18at 07:57; Admin Dose 100 MLS/HR; Start 11/06/18 at 07:00 Hydromorphone HCl (Dilaudid) 1 mg Q3H PRN IV SEVERE PAIN LEVEL 7-10 Last administered on 11/06/18at 08:56; Admin Dose 1 MG; Start 11/06/18 at 07:00 JUVE SOLIMAN MD Nov 06, 2018 09:45
[2018-11-06] MEDS ORDERED: LACTATED RINGER'S 1,000 ML IV ONE (15:00)
[2018-11-07] VITALS (34 sets, daily range): BP systolic 88–120; BP diastolic 43–77; PULSE 99–115; RESP 10–29
[2018-11-07] MEDS: D5W-0.45 NACL + KCL 20 MEQ 1,000 ML IV SCH ×4 (00:28→20:53)
[2018-11-07] MEDS: HYDROmorphONE 1 MG/ML SYG IV PRN ×6 (01:00→22:11)
[2018-11-07] MEDS: HYDROmorphONE 0.5 MG/0.5 ML SYG IV PRN ×2 (03:05→07:48)
[2018-11-07] MEDS: HEPARIN 25000 UNITS/250 ML 250 ML IV SCH ×2 (04:20→22:39)
[2018-11-07] MEDS ORDERED: SOD CHLORIDE 0.9% 250 ML IV* ONE (08:29)
[2018-11-07] MEDS: FAMOTIDINE 20 MG INJ IV SCH ×2 (09:17→20:52)
[2018-11-07] MEDS ORDERED: HYDROmorphONE 4 MG TAB PO PRN (10:00)
--- NOTE | 2018-11-07 10:08 | PN ---
Date/Time of Note Date/Time of Note DATE: 11/07/18 TIME: 09:52 Assessment/Plan VTE Prophylaxis Risk score (from Nsg)>0 risk: 9 SCD applied (from Ns): No SCD contraindicated: other (fasciotomy ) Pharmacological prophylaxis: heparin Lines/Catheters IV Catheter Type (from Nrsg): Peripheral IV Urinary Cath still in place: Yes Reason Cath still needed: other (indicate) (postoperative) Assessment/Plan Assessment/Plan 38 yo woman no major PMH presents with RLE acute limb ischemia plus DVT. # Right lower extremity DVT with ischemia: - Patient was found to have a right lower extremity DVT on ultrasound as well as arterial occlusion on CT imaging. - Now s/p Three compartment fasciotomy right calf, Norberto thrombectomy right posterior tibial artery by Dr. Poe (11/06) - Heparin gtt per vascular surgery. - Dilaudid PO and IV for pain control # Atrial septal defect - Patient has atrial septal defect as seen on echo with bubble 09/24/2018. - This may have been a cause of paradoxical embolism to the leg. - Will consult Dr. Melara to evaluate if she should get this shunt closed. # Iron deficiency anemia: - Ferritin deficient. Will order IV ferrlicit. - Also postoperative bleeding, requiring pRBCs. # AK I: Likely secondary to hemodynamics, mild dehydration. IV fluid hydration until tolerating diet. Monitor renal function. Avoid nephrotoxic agents. # Prediabetes: Recent hemoglobin A1c 6.2, encourage diet and lifestyle modification. Monitor blood sugars while inpatient. # obesity: Encourage diet and exercise, patient has prediabetes please see #4. TSH was within normal values during previous admission. # DVT GI prophylaxis: Heparin GTT, Protonix Result Diagram: 11/07/18 0304 11/07/18 0304 Subjective 24 Hr Interval Summary Free Text/Dictation No acute overnight events. Patient required one unit pRBCs today. Severe postoperative pain requiring IV dilaudid ATC. Will change to oral dilaudid Exam/Review of Systems Exam Vitals Vital Signs Date Temp Pulse Resp B/P (MAP) Pulse Ox O2 O2 Flow FiO2 Time Delivery Rate 11/07/18 108 09:04 11/07/18 98.6 15 100/59 100 Nasal 2.0 08:00 (73) Cannula 11/06/18 27 05:31 Intake and Output 11/06/18 11/06/1811/07/19 1515:00 23:00 07:00 IntakeIntake Total 842.15 ml 2139.5 ml 1349.5 ml OutputOutput Total 1355 ml 310 ml 515 ml BalanceBalance -512.85 ml 1829.5 ml 834.5 ml Exam General: Well developed woman awake and alert, no distress HEENT: Atraumatic, normocephalic. Neck: Supple with full range of motion. No rigidity or meningismus Chest: Nontender Lungs: Clear to auscultation bilaterally no crackles rales or wheezing Heart: Sinus tachy, no murmurs Abdomen: Soft , nontender, nondistended. No guarding no rebound tenderness , Extremities: Right lower extremity: Skin: Right lower extremity: Dressing clean. Mild swelling. No palpable DP pulse, but dopplerable. Left foot has 2+ DP pulse and is warm. Results Results 24hrs Laboratory Tests Test 11/06/18 10:10 11/06/18 12:15 11/06/18 14:58 11/06/18 21:09 Iron Level < 10 L Total Iron Binding 317 Capacity Percent Iron Saturation Ferritin 18.6 Creatine Kinase 52502 H Creatine Kinase 0.1 Index Creatinine Kinase MB 49.70 H (Mass) Troponin I < 0.012 Activated 69.8 H 60.1 H Partial Thromboplast Time Test 11/07/18 03:03 11/07/18 03:04 Activated 66.0 H Partial Thromboplast Time White Blood Count 16.2 #H Red Blood Count 3.26 L Hemoglobin 7.0 L Hematocrit 23.7 L Mean Corpuscular 72.7 L Volume Mean Corpuscular 21.5 L Hemoglobin Mean Corpuscular 29.5 L Hemoglobin Concent Red Cell 17.2 H Distribution Width Platelet Count 234 # Mean Platelet Volume 11.0 H Immature 0.800 H Granulocytes % Neutrophils % 71.6 Lymphocytes % 20.1 Monocytes % 6.5 Eosinophils % 0.4 Basophils % 0.6 Nucleated Red Blood 0.0 Cells % Immature 0.130 H Granulocytes # Neutrophils # 11.6 H Lymphocytes # 3.3 H Monocytes # 1.1 H Eosinophils # 0.1 Basophils # 0.1 Nucleated Red Blood 0.0 Cells # Sodium Level 137 Potassium Level 4.0 Chloride Level 105 Carbon Dioxide Level 28 Anion Gap 4 L Blood Urea Nitrogen 6 L Creatinine 0.79 Est Glomerular > 60 Filtrat Rate mL/min Glucose Level 146 Calcium Level 7.1 L Iron Level 11 L Total Iron Binding 273 Capacity Percent Iron 4 L Saturation Ferritin 17.8 Total Bilirubin 0.3 Direct Bilirubin 0.00 Indirect Bilirubin 0.3 Aspartate Amino 831 H Transf (AST/SGOT) Alanine 145 H Aminotransferase (AL T/SGPT) Alkaline Phosphatase 88 Total Protein 5.4 L Albumin 2.5 L Globulin 2.90 Albumin/Globulin 0.86 Ratio Medications Medication Current Medications Heparin Sodium (Porcine) (Heparin (1000 Units/ml)) 6,100 unit PER PROTOCOL PRN IV aPTT<47; Start 11/05/18 at 20:30 Heparin Sodium (Porcine) (Heparin (1000 Units/ml)) 3,000 unit PER PROTOCOL PRN IV aPTT<47-57; Start 11/05/18 at 20:30 Heparin Sodium (Porcine) 250 ml @ 0 mls/hr PER PROTOCOL IV Last administered on 11/07/18at 04:20; Admin Dose 14 MLS/HR; Start 11/05/18 at 20:30 Ondansetron HCl (Zofran Inj) 4 mg Q6H PRN IV NAUSEA AND/OR VOMITING; Start 11/06/18 at 01:30 Ipratropium [place] (Atrovent 0.02% (Neb)) 0.5 mg Q2H RESP THERAPY PRN NEB SHORTNESS OF BREATH; Start 11/06/18 at 01:30 Acetaminophen (Tylenol Liquid) 650 mg Q6H PRN PO PAIN LEVEL 1-3 OR FEVER; Start 11/06/18 at 01:30 Hydromorphone HCl (Dilaudid) 0.5 mg Q4H PRN IV PAIN LEVEL 7-10 Last administered on 11/07/18at 07:48; Admin Dose 0.5 MG; Start 11/06/18 at 01:30 Docusate Sodium (Colace) 100 mg Q12H PRN PO CONSTIPATION; Start 11/06/18 at 01:30 Bisacodyl (Dulcolax) 5 mg DAILY PRN PO CONSTIPATION; Start 11/06/18 at 01:30 Famotidine (Pepcid Iv) 20 mg BID IV Last administered on 11/07/18at 09:17; Admin Dose 20 MG; Start 11/06/18 at 09:00 Potassium Chloride/Dextrose/ Sod Cl 1,000 ml @ 150 mls/hr Q6H40M IV Last administered on 11/07/18at 07:22; Admin Dose 150 MLS/HR; Start 11/06/18 at 07:00 Hydromorphone HCl (Dilaudid) 1 mg Q3H PRN IV SEVERE PAIN LEVEL 7-10 Last administered on 11/07/18 05:42; Admin Dose 1 MG; Start 11/06/18 at 07:00 JUVE SOLIMAN MD Nov 07, 2018 10:05
[2018-11-07] MEDS ORDERED: SOD FERRIC GLUC COMPLX 125 MG in SOD CHLORIDE 0.9% 100 ML IVPB ONE ×2 (10:30→13:00)
--- NOTE | 2018-11-07 11:12 | PN ---
Date/Time of Note Date/Time of Note DATE: 11/07/18 TIME: 11:07 Assessment/Plan Lines/Catheters IV Catheter Type (from Nrsg): Peripheral IV Mullen in Place (from Nrsg): Yes Assessment/Plan Assessment/Plan sp right fasciotomy heparin 1500 units transfuse 1 unit dressing changes eventual pt eventual skin graft eventual work up for hypercoagulable state Subjective 24 Hr Interval Summary Constitutional: improved Feeding: advancing diet Pain Control: well controlled Exam/Review of Systems Vital Signs Vitals Vital Signs Date Temp Pulse Resp B/P (MAP) Pulse Ox O2 O2 Flow FiO2 Time Delivery Rate 11/07/18 2.0 10:42 11/07/18 108 09:04 11/07/18 98.6 15 100/59 100 Nasal 08:00 (73) Cannula 11/06/18 27 05:31 Intake and Output 11/06/18 11/06/18 11/07/18 1515:00 23:00 07:00 IntakeIntake Total 842.15 ml 2139.5 ml 1349.5 ml OutputOutput Total 1355 ml 310 ml 515 ml BalanceBalance -512.85 ml 1829.5 ml 834.5 ml Exam Constitutional: alert Head: normocephalic Eyes: nl conjunctiva Neck: supple Respiratory: clear to auscultation Cardiovascular: regular rate and rhythm Musculoskeletal: swelling, other (right leg dressing changes no sensation below right knee no ankle or toe mobility doppler dp and pt) Neurological: nl mental status Results Result Diagram: 11/07/18 0304 11/07/18 0304 ANIKA PLUNKETT MD Nov 07, 2018 11:12
--- NOTE | 2018-11-07 14:10 | CONS ---
DATE OF ADMISSION: 11/06/2018 DATE OF CONSULTATION: 11/07/2018 TYPE OF CONSULTATION: Cardiology. REASON FOR CONSULTATION: Assess source of embolus. REQUESTING PHYSICIAN: Juve Rose MD HISTORY OF PRESENT ILLNESS: Ms. Nunes is a 38-year-old female with a history of prediabetes, obesity, recent admit and evaluation for transient ischemic attack in 09/2018. During which time, she underwent a 2D echo revealing a possible left to right shunt at the interatrial septum. The patient now represents with acute onset of right lower extremity arterial insufficiency. The patient states that the pain started on the day prior to admission in the morning when she noticed pain radiating down her right leg with numbness and tingling, getting worse as the day went on. The patient subsequently presented here to the emergency department at [facility] where upon arrival, temperature of 99.3, blood pressure 130/60, pulse 128, respiratory rate 20, satting 98%. The patient's labs revealed a white blood cell count of 19.6, hemoglobin 10.2, platelet count of 359, a sodium of 136, potassium 4.0, creatinine 1.0, BUN of 18, troponin negative. PTT 85.3. UA negative. The patient underwent venous ultrasound revealing DVT within the right popliteal vein, positive DVT right distal femoral vein and right posterior tibial vein; chest x-ray revealing no acute cardiopulmonary abnormalities and then underwent a lower extremity CTA revealing noncalcified arteries identified level of the ankle and foot. The posterior tibial artery is occluded at the level of the proximal calf, peroneal artery at the mid calf level and anterior tibial artery and distal calf level, in the area of the distal popliteal artery. The patient's electrocardiogram revealed sinus tachycardia, rate 114, normal axis, normal intervals, inferior Q's. The patient subsequently was taken emergently to the OR by Dr. Poe and underwent an open thrombectomy, fasciotomy from the right posterior tibial artery. The patient has now been admitted to the ICU postoperatively in stable condition. The patient denies chest pain, shortness breath or significant palpitations previously. PAST MEDICAL HISTORY: As above in HPI. MEDICATIONS CURRENTLY IN HOSPITAL: 1. Dilaudid. 2. Pepcid 20 mg IV b.i.d. 3. Zofran. 4. Atrovent. 5. Tylenol. 6. Colace. 7. Dulcolax. 8. Heparin. ALLERGIES: NO KNOWN DRUG ALLERGIES. SOCIAL HISTORY: No current tobacco, EtOH or illicit drug use. FAMILY HISTORY: No history of sudden cardiac or early CAD. REVIEW OF SYSTEMS: As above in HPI. CONSTITUTIONAL: No fevers, chills. PULMONARY: No current shortness of breath. CARDIOVASCULAR: No current chest pain. GASTROINTESTINAL: No vomiting. GENITOURINARY: No hematuria. MUSCULOSKELETAL: Right lower extremity leg pain status post fasciotomy and open thrombectomy, palpable pulses bilaterally in lower extremities at this time, dorsalis pedis to posterior tibia. Right lower extremity is covered by dressing. LABORATORY DATA: Most recently from today, sodium 137, potassium 4.0, creatinine 0.79, BUN of 6. AST of 831, ALT of 145. CK of 95,613. Troponin is negative. White blood cell count 16.2, hemoglobin 7, platelet count of 234. IMAGING STUDIES: As above in HPI. No further imaging studies for my review at this time. ELECTROCARDIOGRAM: As above in HPI. No further electrocardiograms for my review at this time. IMPRESSION: 1. Acute arterial insufficiency. 2. Lower extremity deep venous thrombosis in the right lower extremity. 3. Sinus tachycardia in the setting the patient just had surgery with significant lower extremity pain. 4. History of prior transient ischemic attack. 5. History of possible right to left shunt at level of interatrial septum or atrial septal defect, most commonly patent foramen ovale. 6. Anemia, worsening. 7. Leukocytosis. 8. Rhabdomyolysis. RECOMMENDATIONS: 1. At this time, the patient presents with acute arterial thrombosis as well as venous thrombosis and has had a previous TIA. The patient at this time has been found to have possible interatrial septal defect by transthoracic echo with bubble study in 09/2018. This definitely rises possibility for the patient to have paradoxical emboli lending to arterial thrombosis. At this time, the patient is status post thrombectomy and fasciotomy on anticoagulation. I believe that at this time in acute state as you are doing, the patient should remain anticoagulation and be transitioned to oral anticoagulation for long-term as tolerated. The patient should undergo a hypercoagulable workup including factors that may predispose to both arterial and venous thromboses. Patient should also be monitored for occult cardiac arrythmias, such as atrial fibrillation that may predispose to arterial thromboembolism. 2. Once patient has recovered from her surgery, it would be reasonable for patient to undergo further evaluation of her interatrial septum to further identify the true nature of her septal defect, such as patent foramen ovale or true atrial septal defect, by transesophageal echo and thereafter once the patient's anatomy is further understood then the patient could be possibly considered for closure as necessary. 3. Will continue to follow along closely with you at this time with the patient continued on anticoagulation. Dictated By: JUVE TENA/CAIN Conf#: [id number] DID#: [id number] CC: SHYAM WELLS MD; JUVE ROSE MD;*EndCC* MTDD
--- NOTE | 2018-11-07 14:12 | CONS ---
DATE OF ADMISSION: 11/06/2018 DATE OF CONSULTATION: 11/07/2018 ADDENDUM: Additionally, the patient should undergo monitoring for alternative causes of arterial thr omboembolic disease such as occult cardiac arrhythmias such as atrial fibrillation. Dictated By: JUVE POWELL MD J[facility]/NTS Conf#: [id number] DID#: [id number] CC: SHYAM WELLS MD; JUVE SOLIMAN MD;*End*
[2018-11-08] VITALS (33 sets, daily range): BP systolic 92–117; BP diastolic 51–68; PULSE 97–112; RESP 15–29
[2018-11-08] MEDS: HYDROmorphONE 1 MG/ML SYG IV PRN ×6 (01:14→21:08)
[2018-11-08] MEDS: D5W-0.45 NACL + KCL 20 MEQ 1,000 ML IV SCH ×3 (04:04→17:32)
--- NOTE | 2018-11-08 07:42 | PN ---
Date/Time of Note Date/Time of Note DATE: 11/08/18 TIME: 07:41 Assessment/Plan Lines/Catheters IV Catheter Type (from Nrsg): Peripheral IV Mullen in Place (from Nrsg): Yes Assessment/Plan Assessment/Plan pulses present in foot which is warm. unable to move toes. continue heparin. Exam/Review of Systems Vital Signs Vitals Vital Signs Date Temp Pulse Resp B/P (MAP) Pulse Ox O2 O2 Flow FiO2 Time Delivery Rate 11/08/18 101 18 92/62 (72) 96 Room Air 06:00 11/08/18 98.6 04:00 11/08/18 2.0 04:00 11/07/18 21 21:22 Intake and Output 11/07/18 11/07/18 11/08/18 1515:00 23:00 07:00 IntakeIntake Total 1717 ml 3718.5 ml 3441 ml OutputOutput Total 490 ml 1225 ml 1075 ml BalanceBalance 1227 ml 2493.5 ml 2366 ml Results Result Diagram: 11/08/18 0440 11/08/18 0440 YOLANDA GONZALEZ MD Nov 08, 2018 07:42
[2018-11-08] MEDS: ONDANSETRON 4 MG INJ IV PRN (09:55)
[2018-11-08] MEDS: FAMOTIDINE 20 MG INJ IV SCH (09:55)
[2018-11-08] MEDS: HYDROmorphONE 2 MG TAB PO PRN ×2 (09:57→14:31)
--- NOTE | 2018-11-08 10:02 | PN ---
Date/Time of Note Date/Time of Note DATE: 11/08/18 TIME: 09:51 Assessment/Plan VTE Prophylaxis Risk score (from Ns)>0 risk: 12 SCD applied (from Ns): No SCD contraindicated: other Pharmacological prophylaxis: heparin Lines/Catheters IV [facility] Type (from [facility]): Peripheral IV Urinary Cath still in place: Yes Reason Cath still needed: urinary retention Assessment/Plan Hospital Course S: Patient seen by surgery earlier today, still having some occasional pain in the right lower extremity. Per records patient received PRBC transfusion y . O: VS - see below PE: General: Well developed woman awake and alert, no distress HEENT: Atraumatic, normocephalic. Neck: Supple with full range of motion. No rigidity or meningismus Chest: Nontender Lungs: Clear to auscultation bilaterally no crackles rales or wheezing Heart: Sinus tachy, no murmurs Abdomen: Soft , nontender, nondistended. No guarding no rebound tenderness , Extremities: Right lower extremity: Skin: Right lower extremity: Dressing clean. Mild swelling. Right slight positive DP pulse felt, warm. Left foot has + DP pulse and is warm. DATE OF OPERATION: 11/06/2018 PREOPERATIVE DIAGNOSES: Deep vein thrombosis right leg, arterial insufficiency right leg, compartment syndrome right leg, arterial insufficiency right leg, compartment syndrome right leg. POSTOPERATIVE DIAGNOSES: Deep vein thrombosis right leg, arterial insufficiency right leg, compartment syndrome right leg, arterial insufficiency right leg, compartment syndrome right leg. OPERATIVE PROCEDURE: Three compartment fasciotomy right calf, Norberto thrombe ctomy right posterior tibial artery. Assessment/Plan: 38 yo woman no major PMH presents with RLE acute limb ischemia plus DVT. # Right lower extremity DVT with ischemia- Patient was found to have a right lower extremity DVT on ultrasound as well as arterial occlusion on CT imaging. Now s/p Three compartment fasciotomy right calf, Norberto thrombectomy right posterior tibial artery by Dr. Poe (11/06) - postop day #2 -For now continue heparin gtt per vascular surgery. -Continue Dilaudid PO and IV for pain control -Consider PT eval # Atrial septal defect- Patient has atrial septal defect as seen on echo with bubble 09/24/2018- This may have been a cause of paradoxical embolism to the leg. -Appreciate cardiology consult, follow-up their further recommendations Dr. Melara to evaluate if pt should get this shunt closed. # Iron deficiency anemia- Ferritin deficient.-Patient received IV ferrlicit- Also postoperative bleeding, required PRBC transfusion yesterday. -Hemoglobin presently improved up to 7.8 today, continue monitor CBC daily # EULOGIO: Resolved likely secondary to hemodynamics, mild dehydration. -For now continue IV fluid hydration -we will low rate of IV fluids today - Monitor renal function. Avoid nephrotoxic agents. # Prediabetes: Recent hemoglobin A1c 6.2, - encourage diet and lifestyle modification. - Monitor blood sugars while inpatient. # obesity: Encourage diet and exercise, patient has prediabetes please see #4. TSH was within normal values during previous admission. # DVT GI prophylaxis: Heparin GTT, Protonix Critical care time spent on patient care today was 45 minutes. Result Diagram: 11/08/180 11/08/18 0440 Results 24hrs Laboratory Tests Test 11/07/18 10:51 11/07/18 17:14 11/08/18 01:06 11/08/18 04:40 Activated 75.5 *H 103.4 *H 74.7 *H Partial Thrombopl ast Time Troponin I < 0.012 < 0.012 White Blood Count 16.4 H Red Blood Count 3.46 L Hemoglobin 7.8 L Hematocrit 25.3 L Mean Corpuscular 73.1 L Volume Mean Corpuscular 22.5 L Hemoglobin Mean Corpuscular 30.8 L Hemoglobin Concen t Red Cell 17.8 H Distribution Width Platelet Count 252 Mean Platelet 11.8 H Volume Immature 1.200 H Granulocytes % Neutrophils % 69.0 Lymphocytes % 20.3 Monocytes % 7.5 Eosinophils % 1.5 Basophils % 0.5 Nucleated Red 0.1 H Blood Cells % Immature 0.200 H Granulocytes # Neutrophils # 11.4 H Lymphocytes # 3.3 H Monocytes # 1.2 H Eosinophils # 0.3 Basophils # 0.1 Nucleated Red 0.0 Blood Cells # Sodium Level 132 L Potassium Level 3.8 Chloride Level 98 Carbon Dioxide 27 Level Anion Gap 7 Blood Urea 4 L Nitrogen Creatinine 0.71 Est Glomerular > 60 Filtrat Rate mL/min Glucose Level 124 Calcium Level 7.5 L Total Bilirubin 0.3 Direct Bilirubin 0.00 Indirect 0.3 Bilirubin Aspartate Amino 542 H Transf (AST/SGOT) Alanine 106 H Aminotransferase (ALT/SGPT) Alkaline 119 Phosphatase Total Protein 5.3 L Albumin 2.4 L Globulin 2.90 Albumin/Globulin 0.82 Ratio Test 11/08/18 05:34 11/08/18 08:12 Lab Scanned BLOOD TRANSFUSIO Report N Activated 76.8 *H Partial Thrombopl ast Time Exam/Review of Systems Exam Vitals Vital Signs Date Temp Pulse Resp B/P (MAP) Pulse Ox O2 O2 Flow FiO2 Time Delivery Rate 11/08/18 101 08:00 11/08/18 98.6 17 96/51 (66) 97 Room Air 07:50 11/08/18 2.0 04:00 11/07/18 21 21:22 Intake and Output 11/07/18 11/07/18 11/08/18 1515:00 23:00 07:00 IntakeIntake Total 1717 ml 3718.5 ml 3441 ml OutputOutput Total 490 ml 1225 ml 1075 ml BalanceBalance 1227 ml 2493.5 ml 2366 ml Results Results 24hrs Laboratory Tests Test 11/07/18 10:51 11/07/18 17:14 11/08/18 01:06 11/08/18 04:40 Activated 75.5 *H 103.4 *H 74.7 *H Partial Thrombopl ast Time Troponin I < 0.012 < 0.012 White Blood Count 16.4 H Red Blood Count 3.46 L Hemoglobin 7.8 L Hematocrit 25.3 L Mean Corpuscular 73.1 L Volume Mean Corpuscular 22.5 L Hemoglobin Mean Corpuscular 30.8 L Hemoglobin Concen t Red Cell 17.8 H Distribution Width Platelet Count 252 Mean Platelet 11.8 H Volume Immature 1.200 H Granulocytes % Neutrophils % 69.0 Lymphocytes % 20.3 Monocytes % 7.5 Eosinophils % 1.5 Basophils % 0.5 Nucleated Red 0.1 H Blood Cells % Immature 0.200 H Granulocytes # Neutrophils # 11.4 H Lymphocytes # 3.3 H Monocytes # 1.2 H Eosinophils # 0.3 Basophils # 0.1 Nucleated Red 0.0 Blood Cells # Sodium Level 132 L Potassium Level 3.8 Chloride Level 98 Carbon Dioxide 27 Level Anion Gap 7 Blood Urea 4 L Nitrogen Creatinine 0.71 Est Glomerular > 60 Filtrat Rate mL/min Glucose Level 124 Calcium Level 7.5 L Total Bilirubin 0.3 Direct Bilirubin 0.00 Indirect 0.3 Bilirubin Aspartate Amino 542 H Transf (AST/SGOT) Alanine 106 H Aminotransferase (ALT/SGPT) Alkaline 119 Phosphatase Total Protein 5.3 L Albumin 2.4 L Globulin 2.90 Albumin/Globulin 0.82 Ratio Test 11/08/18 05:34 11/08/18 08:12 Lab Scanned BLOOD TRANSFUSIO Report N Activated 76.8 *H Partial Thrombopl ast Time Medications Medication Current Medications Heparin Sodium (Porcine) (Heparin (1000 Units/ml)) 6,100 unit PER PROTOCOL PRN IV aPTT<47; Start 11/05/18 at 20:30 Heparin Sodium (Porcine) (Heparin (1000 Units/ml)) 3,000 unit PER PROTOCOL PRN IV aPTT<47-57; Start 11/05/18 at 20:30 Heparin Sodium (Porcine) 250 ml @ 0 mls/hr PER PROTOCOL IV Last administered on 11/07/18at 22:39; Admin Dose 13 MLS/HR; Start 11/05/18 at 20:30 Ondansetron HCl (Zofran Inj) 4 mg Q6H PRN IV NAUSEA AND/OR VOMITING; Start 11/06/18 at 01:30 Ipratropium [place] (Atrovent 0.02% (Neb)) 0.5 mg Q2H RESP THERAPY PRN NEB SHORTNESS OF BREATH; Start 11/06/18 at 01:30 Acetaminophen (Tylenol Liquid) 650 mg Q6H PRN PO PAIN LEVEL 1-3 OR FEVER; Start 11/06/18 at 01:30 Docusate Sodium (Colace) 100 mg Q12H PRN PO CONSTIPATION; Start 11/06/18 at 01:30 Bisacodyl (Dulcolax) 5 mg DAILY PRN PO CONSTIPATION; Start 11/06/18 at 01:30 Famotidine (Pepcid Iv) 20 mg BID IV Last administered on 11/07/18at 20:52; Admin Dose 20 MG; Start 11/06/18 at 09:00 Potassium Chloride/Dextrose/ Sod Cl 1,000 ml @ 150 mls/hr Q6H40M IV Last administered on 11/08/18at 04:04; Admin Dose 150 MLS/HR; Start 11/06/18 at 07:00 Hydromorphone HCl (Dilaudid) 1 mg Q3H PRN IV BREAKTHROUGH PAIN Last administered on 11/08/18at 07:22; Admin Dose 1 MG; Start 11/06/18 at 07:00 Hydromorphone HCl (Dilaudid) 4 mg Q4H PRN PO MODERATE PAIN LEVEL 4-6; Start 11/07/18 at 22:29 ONEIL VOGEL Nov 08, 2018 10:01
[2018-11-08] MEDS: HEPARIN 25000 UNITS/250 ML 250 ML IV SCH (17:38)
--- NOTE | 2018-11-08 18:40 | RADRPT ---
Vent Rate: 101 bpm RR Interval: 0 msec ND Interval: 170 msec QRS Duration: 82 msec QT Interval: 332 msec QTC Interval: 430 msec P-R-T [place]: 32 - 9 - 44 degrees Sinus tachycardia Otherwise normal ECG Electronically Signed By: David Hunter
--- NOTE | 2018-11-08 19:48 | CONS ---
Assessment/Plan Assessment/Plan Hospital Course (Demo Recall) IMPRESSION: 1. Acute arterial insufficiency.-s/p open thrpmbectomy 2. Lower extremity deep venous thrombosis in the right lower extremity. 3. Sinus tachycardia in the setting the patient just had surgery with significant lower extremity pain. 4. History of prior transient ischemic attack. 5. History of possible right to left shunt at level of interatrial septum or atrial septal defect, most commonly patent foramen ovale. 6. Anemia, worsening. 7. Leukocytosis. 8. Rhabdomyolysis. 9. Tachycardia-s tach mild to low 100's. Likley due to pain Recc: -Tele -Pain control -Contineu anticoagulation Consultation Date/Type/Reason Admit Date/Time Nov 06, 2018 at 01:33 Initial Consult Date 01/07/19 Type of Consult Cardiology Reason for Consultation arterial insuff Requesting Provider: JUVE SOLIMAN MD Date/Time of Note DATE: 11/08/18 TIME: 19:44 Exam/Review of Systems Vital Signs Vitals Vital Signs Date Temp Pulse Resp B/P (MAP) Pulse Ox O2 O2 Flow FiO2 Time Delivery Rate 11/08/18 109 19:08 11/08/18 98.6 Room Air 15:57 11/08/18 22 102/54 98 14:00 (70) 11/08/18 2.0 04:00 11/07/18 21 21:22 Intake and Output 11/07/18 11/07/18 11/08/18 1515:00 23:00 07:00 IntakeIntake Total 1717 ml 3718.5 ml 3441 ml OutputOutput Total 490 ml 1225 ml 1075 ml BalanceBalance 1227 ml 2493.5 ml 2366 ml Exam Exam Review of Systems: CONSTITUTIONAL: No fevers, chills. PULMONARY: No sob CARDIOVASCULAR: No chest pain/palpitations GASTROINTESTINAL: No nausea/vomiting. GENITOURINARY: No hematuria/dysuria. MUSCULOSKELETAL: No myagias/arthalgias. PSYCHIATRIC: The patient denies depression. NEUROLOGIC: No weakness Constitutional: alert Psych: no complaints Head: normocephalic ENMT: mucosa pink and moist Neck: supple, jvd (9 cm water) Respiratory: diminished breath sounds Cardiovascular: regular rate and rhythm Gastrointestinal: soft, non-tender Musculoskeletal: muscle tone (normnal) Extremities: edema (leg covered by dressing s/p surgical intervention) Labs Result Diagram: 11/08/18 0440 11/08/18 0440 Results 24hrs Laboratory Tests Test 11/08/18 01:06 11/08/18 04:40 11/08/18 05:34 11/08/18 08:12 Activated 74.7 *H 76.8 *H Partial Thrombopl ast Time Troponin I < 0.012 White Blood Count 16.4 H Red Blood Count 3.46 L Hemoglobin 7.8 L Hematocrit 25.3 L Mean Corpuscular 73.1 L Volume Mean Corpuscular 22.5 L Hemoglobin Mean Corpuscular 30.8 L Hemoglobin Concen t Red Cell 17.8 H Distribution Width Platelet Count 252 Mean Platelet 11.8 H Volume Immature 1.200 H Granulocytes % Neutrophils % 69.0 Lymphocytes % 20.3 Monocytes % 7.5 Eosinophils % 1.5 Basophils % 0.5 Nucleated Red 0.1 H Blood Cells % Immature 0.200 H Granulocytes # Neutrophils # 11.4 H Lymphocytes # 3.3 H Monocytes # 1.2 H Eosinophils # 0.3 Basophils # 0.1 Nucleated Red 0.0 Blood Cells # Sodium Level 132 L Potassium Level 3.8 Chloride Level 98 Carbon Dioxide 27 Level Anion Gap 7 Blood Urea 4 L Nitrogen Creatinine 0.71 Est Glomerular > 60 Filtrat Rate mL/min Glucose Level 124 Calcium Level 7.5 L Total Bilirubin 0.3 Direct Bilirubin 0.00 Indirect 0.3 Bilirubin Aspartate Amino 542 H Transf (AST/SGOT) Alanine 106 H Aminotransferase (ALT/SGPT) Alkaline 119 Phosphatase Total Protein 5.3 L Albumin 2.4 L Globulin 2.90 Albumin/Globulin 0.82 Ratio Lab Scanned BLOOD TRANSFUSIO Report N Medications Medications Current Medications Heparin Sodium (Porcine) (Heparin (1000 Units/ml)) 6,100 unit PER PROTOCOL PRN IV aPTT<47; Start 11/05/18 at 20:30 Heparin Sodium (Porcine) (Heparin (1000 Units/ml)) 3,000 unit PER PROTOCOL PRN IV aPTT<47-57; Start 11/05/18 at 20:30 Heparin Sodium (Porcine) 250 ml @ 0 mls/hr PER PROTOCOL IV Last administered on 11/08/18at 17:38; Admin Dose 13 MLS/HR; Start 11/05/18 at 20:30 Ondansetron HCl (Zofran Inj) 4 mg Q6H PRN IV NAUSEA AND/OR VOMITING Last administered on 11/08/18 09:55; Admin Dose 4 MG; Start 11/06/18 at 01:30 Ipratropium [place] (Atrovent 0.02% (Neb)) 0.5 mg Q2H RESP THERAPY PRN NEB SHORTNESS OF BREATH; Start 11/06/18 at 01:30 Acetaminophen (Tylenol Liquid) 650 mg Q6H PRN PO PAIN LEVEL 1-3 OR FEVER; Start 11/06/18 at 01:30 Docusate Sodium (Colace) 100 mg Q12H PRN PO CONSTIPATION Last administered on 11/08/18 17:32; Admin Dose 100 MG; Start 11/06/18 at 01:30 Bisacodyl (Dulcolax) 5 mg DAILY PRN PO CONSTIPATION Last administered on 11/08/18 17:32; Admin Dose 5 MG; Start 11/06/18 at 01:30 Potassium Chloride/Dextrose/ Sod Cl 1,000 ml @ 100 mls/hr Q10H IV Last administered on 11/08/18 17:32; Admin Dose 100 MLS/HR; Start 11/06/18 at 07:00 Hydromorphone HCl (Dilaudid) 1 mg Q3H PRN IV BREAKTHROUGH PAIN Last administered on 11/08/18 15:37; Admin Dose 1 MG; Start 11/06/18 at 07:00 Hydromorphone HCl (Dilaudid) 4 mg Q4H PRN PO MODERATE PAIN LEVEL 4-6 Last administered on 11/08/18 14:31; Admin Dose 4 MG; Start 11/07/18 at 22:29 Famotidine (Pepcid) 20 mg BID PO ; Start 11/08/18 at 21:00 JUVE POWELL Nov 08, 2018 19:48
[2018-11-08] MEDS: FAMOTIDINE 20 MG TAB PO SCH (21:08)
[2018-11-09] VITALS (12 sets, daily range): BP systolic 100–131; BP diastolic 54–71; PULSE 75–107; RESP 18–20
[2018-11-09] MEDS: HYDROmorphONE 2 MG TAB PO PRN ×4 (00:49→21:51)
[2018-11-09] MEDS: HYDROmorphONE 1 MG/ML SYG IV PRN ×5 (03:13→23:37)
[2018-11-09] MEDS: D5W-0.45 NACL + KCL 20 MEQ 1,000 ML IV SCH ×3 (03:36→14:20)
[2018-11-09] MEDS: HEPARIN 25000 UNITS/250 ML 250 ML IV SCH (07:01)
--- NOTE | 2018-11-09 07:06 | PN ---
Date/Time of Note Date/Time of Note DATE: 11/09/18 TIME: 07:03 Assessment/Plan Lines/Catheters IV Catheter Type (from Nrsg): Peripheral IV M[place] in Place (from Nrsg): Yes Assessment/Plan Assessment/Plan gross movement of RLE, unable to move toes. 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 she needs hematology work up. Consider starting eliquis or xarelto. needs wound vac to LE wounds Exam/Review of Systems Vital Signs Vitals Vital Signs Date Temp Pulse Resp B/P (MAP) Pulse Ox O2 O2 Flow FiO2 Time Delivery Rate 11/09/18 93 21 04:25 11/09/18 99.2 106 20 122/59 04:00 (80) 11/08/18 Nasal 2.0 20:00 Cannula Intake and Output 11/08/18 11/08/18 11/09/18 1515:00 23:00 07:00 IntakeIntake Total 2004 ml 1262 ml 1943 ml OutputOutput Total 1400 ml 1100 ml 2500 ml BalanceBalance 604 ml 162 ml -557 ml Results Result Diagram: 11/09/18 0533 11/08/18 0440 YOLANDA GONZALEZ MD Nov 09, 2018 07:06
[2018-11-09] MEDS: FAMOTIDINE 20 MG TAB PO SCH ×2 (09:14→21:50)
--- NOTE | 2018-11-09 10:54 | PN ---
Date/Time of Note Date/Time of Note DATE: 11/09/18 TIME: 10:33 Assessment/Plan VTE Prophylaxis Risk score (from Ns)>0 risk: 11 SCD applied (from Ns): No SCD contraindicated: other Pharmacological prophylaxis: heparin Lines/Catheters IV C[facility]ter Type (from [facility]): Peripheral IV Urinary Cath still in place: Yes Reason Cath still needed: urinary retention Assessment/Plan Hospital Course S: Patient out of ICU now, still on heparin drip. Seen by surgery team earlier today who has recommended starting wound care vac on this patient for her lower extremity. O: VS - see below PE: General: Well developed woman awake and alert, no distress HEENT: Atraumatic, normocephalic. Neck: Supple with full range of motion. No rigidity or meningismus Chest: Nontender Lungs: Clear to auscultation bilaterally no crackles rales or wheezing Heart: Sinus tachy, no murmurs Abdomen: Soft , nontender, nondistended. No guarding no rebound tenderness , Extremities: Right lower extremity: Skin: Right lower extremity: Dressing clean. Mild swelling. Right slight positive DP pulse felt, warm. Left foot has + DP pulse and is warm. DATE OF OPERATION: 11/06/2018 PREOPERATIVE DIAGNOSES: Deep vein thrombosis right leg, arterial insufficiency right leg, compartment syndrome right leg, arterial insufficiency right leg, compartment syndrome right leg. POSTOPERATIVE DIAGNOSES: Deep vein thrombosis right leg, arterial insufficiency right leg, compartment syndrome right leg, arterial insufficiency right leg, com partment syndrome right leg. OPERATIVE PROCEDURE: Three compartment fasciotomy right calf, Norberto thrombectomy right posterior tibial artery. Assessment/Plan: 38 yo woman no major PMH presents with RLE acute limb ischemia plus DVT. # Right lower extremity DVT with ischemia- Patient was found to have a right lower extremity DVT on ultrasound as well as arterial occlusion on CT imaging. Now s/p three compartment fasciotomy right calf, Norberto thrombectomy right posterior tibial artery by Dr. Poe (11/06) - postop day # 3. 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 -For now continue heparin gtt per vascular surgery -also requesting hematology oncology consult which we will obtain today -Continue Dilaudid PO and IV for pain control -Follow-up recommendations from PT eval # Atrial septal defect- Patient has atrial septal defect as seen on echo with bubble 09/24/2018. -Appreciate cardiology consult, follow-up their further recommendations Dr. Melara to evaluate if pt should get this shunt closed? # Iron deficiency anemia- Ferritin deficient.-Patient received IV ferrlicit- Also postoperative bleeding, required PRBC transfusion 2 days ago -Hemoglobin presently stable, continue to monitor CBC daily # EULOGIO: Resolved likely secondary to hemodynamics, mild dehydration. -For now continue IV fluid hydration - Monitor renal function. Avoid nephrotoxic agents. # Prediabetes: Recent hemoglobin A1c 6.2, - encourage diet and lifestyle modification. - Monitor blood sugars while inpatient. # obesity: Encourage diet and exercise, patient has prediabetes please see #4. TSH was within normal values during previous admission. # DVT GI prophylaxis: Heparin GTT, Protonix Result Diagram: 11/09/1833 11/09/1833 Results 24hrs Laboratory Tests Test 11/09/18 05:33 White Blood Count 17.0 H Red Blood Count 3.51 L Hemoglobin 8.0 L Hematocrit 26.0 L Mean Corpuscular Volume 74.1 L Mean Corpuscular Hemoglobin 22.8 L Mean Corpuscular Hemoglobin Concent 30.8 L Red Cell Distribution Width 18.5 H Platelet Count 272 Mean Platelet Volume 11.2 H Immature Granulocytes % 4.000 H Neutrophils % 70.3 Lymphocytes % 17.1 Monocytes % 6.5 Eosinophils % 1.5 Basophils % 0.6 Nucleated Red Blood Cells % 0.1 H Immature Granulocytes # 0.680 H Neutrophils # 12.0 H Lymphocytes # 2.9 Monocytes # 1.1 H Eosinophils # 0.3 Basophils # 0.1 Nucleated Red Blood Cells # 0.0 Activated Partial Thromboplast Time 40.1 H Sodium Level 132 L Potassium Level 4.2 Chloride Level 96 L Carbon Dioxide Level 28 Anion Gap 8 Blood Urea Nitrogen 3 L Creatinine 0.75 Est Glomerular Filtrat Rate mL/min > 60 Glucose Level 131 Calcium Level 8.0 L Phosphorus Level 3.3 Magnesium Level 2.0 Total Bilirubin 0.3 Direct Bilirubin 0.00 Indirect Bilirubin 0.3 Aspartate Amino Transf (AST/SGOT) 435 H Alanine Aminotransferase (ALT/SGPT) 107 H Alkaline Phosphatase 140 H Total Protein 5.9 L Albumin 2.6 L Globulin 3.30 H Albumin/Globulin Ratio 0.78 Exam/Review of Systems Exam Vitals Vital Signs Date Temp Pulse Resp B/P (MAP) Pulse Ox O2 O2 Flow FiO2 Time Delivery Rate 11/09/18 Nasal 2.0 09:52 Cannula 11/09/18 101 08:07 11/09/18 98.0 18 131/64 98 07:41 (86) 11/09/18 21 04:25 Intake and Output 11/08/18 11/08/18 11/09/18 1515:00 23:00 07:00 IntakeIntake Total 2004 ml 1262 ml 1943 ml OutputOutput Total 1400 ml 1100 ml 2500 ml BalanceBalance 604 ml 162 ml -557 ml Results Results 24hrs Laboratory Tests Test 11/09/18 05:33 White Blood Count 17.0 H Red Blood Count 3.51 L Hemoglobin 8.0 L Hematocrit 26.0 L Mean Corpuscular Volume 74.1 L Mean Corpuscular Hemoglobin 22.8 L Mean Corpuscular Hemoglobin Concent 30.8 L Red Cell Distribution Width 18.5 H Platelet Count 272 Mean Platelet Volume 11.2 H Immature Granulocytes % 4.000 H Neutrophils % 70.3 Lymphocytes % 17.1 Monocytes % 6.5 Eosinophils % 1.5 Basophils % 0.6 Nucleated Red Blood Cells % 0.1 H Immature Granulocytes # 0.680 H Neutrophils # 12.0 H Lymphocytes # 2.9 Monocytes # 1.1 H Eosinophils # 0.3 Basophils # 0.1 Nucleated Red Blood Cells # 0.0 Activated Partial Thromboplast Time 40.1 H Sodium Level 132 L Potassium Level 4.2 Chloride Level 96 L Carbon Dioxide Level 28 Anion Gap 8 Blood Urea Nitrogen 3 L Creatinine 0.75 Est Glomerular Filtrat Rate mL/min > 60 Glucose Level 131 Calcium Level 8.0 L Phosphorus Level 3.3 Magnesium Level 2.0 Total Bilirubin 0.3 Direct Bilirubin 0.00 Indirect Bilirubin 0.3 Aspartate Amino Transf (AST/SGOT) 435 H Alanine Aminotransferase (ALT/SGPT) 107 H Alkaline Phosphatase 140 H Total Protein 5.9 L Albumin 2.6 L Globulin 3.30 H Albumin/Globulin Ratio 0.78 Medications Medication Current Medications Heparin Sodium (Porcine) (Heparin (1000 Units/ml)) 6,100 unit PER PROTOCOL PRN IV aPTT<47 Last administered on 11/09/18at 06:59; Admin Dose 6,100 UNIT; Start 11/05/18 at 20:30 Heparin Sodium (Porcine) (Heparin (1000 Units/ml)) 3,000 unit PER PROTOCOL PRN IV aPTT<47-57; Start 11/05/18 at 20:30 Heparin Sodium (Porcine) 250 ml @ 0 mls/hr PER PROTOCOL IV Last administered on 11/09/18 07:01; Admin Dose 16 MLS/HR; Start 11/05/18 at 20:30 Ondansetron HCl (Zofran Inj) 4 mg Q6H PRN IV NAUSEA AND/OR VOMITING Last administered on 11/08/18 09:55; Admin Dose 4 MG; Start 11/06/18 at 01:30 Ipratropium [place] (Atrovent 0.02% (Neb)) 0.5 mg Q2H RESP THERAPY PRN NEB SHORTNESS OF BREATH; Start 11/06/18 at 01:30 Acetaminophen (Tylenol Liquid) 650 mg Q6H PRN PO PAIN LEVEL 1-3 OR FEVER; Start 11/06/18 at 01:30 Docusate Sodium (Colace) 100 mg Q12H PRN PO CONSTIPATION Last administered on 11/08/18 17:32; Admin Dose 100 MG; Start 11/06/18 at 01:30 Bisacodyl (Dulcolax) 5 mg DAILY PRN PO CONSTIPATION Last administered on 11/08/18 17:32; Admin Dose 5 MG; Start 11/06/18 at 01:30 Potassium Chloride/Dextrose/ Sod Cl 1,000 ml @ 100 mls/hr Q10H IV Last administered on 11/09/18 03:36; Admin Dose 100 MLS/HR; Start 11/06/18 at 07:00 Hydromorphone HCl (Dilaudid) 1 mg Q3H PRN IV BREAKTHROUGH PAIN Last administered on 11/09/18 08:33; Admin Dose 1 MG; Start 11/06/18 at 07:00 Hydromorphone HCl (Dilaudid) 4 mg Q4H PRN PO MODERATE PAIN LEVEL 4-6 Last administered on 11/09/18 05:54; Admin Dose 4 MG; Start 11/07/18 at 22:29 Famotidine (Pepcid) 20 mg BID PO Last administered on 11/09/18 09:14; Admin Dose 20 MG; Start 11/08/18 at 21:00 ONEIL VOGEL Nov 09, 2018 10:43
--- NOTE | 2018-11-09 14:10 | CONS ---
Consult Date/Type/Reason Admit Date/Time Nov 06, 2018 at 01:33 Initial Consult Date Requesting Provider: JUVE SOLIMAN MD Date/Time of Note DATE: 11/09/18 TIME: 14:07 Subjective NO acute events - reports pain in R LE - con't pain meds. ROS: No fever, no chills, no nausea, no vomiting, no diarrhea/constipation No recent weight changes No chest pain, no PND, no orthopnea No dizziness, blurred vision + LE pain No thirst, no heat or cold intolerance Objective Vitals Vital Signs Date Temp Pulse Resp B/P (MAP) Pulse Ox O2 O2 Flow FiO2 Time Delivery Rate 11/09/18 92 12:53 11/09/18 98.0 18 100/67 98 12:29 (78) 11/09/18 Nasal 2.0 09:52 Cannula 11/09/18 21 04:25 Intake and Output 11/08/18 11/08/18 11/09/18 1515:00 23:00 07:00 IntakeIntake Total 2004 ml 1262 ml 1943 ml OutputOutput Total 1400 ml 1100 ml 2500 ml BalanceBalance 604 ml 162 ml -557 ml Exam General: WN/WD/NAD, AOx 3 HEENT: Unicetric/atraumatic/EOMI (follow commands) NECK: JVD elevated, no thyromegaly Lymph: no lymphadenopathy HEART: regular with no S3, II/ systolic murmur at apex LUNGS: Coarse sounds ABD: soft, NT, ND, +BS : Intact Neuro: non focal SKIN: chronic changes EXT: trace edema, post op - + pulses Results/Medications Result Diagram: 11/09/1833 11/09/18 0533 Results 24 hrs Laboratory Tests Test 11/09/18 05:33 White Blood Count 17.0 H Red Blood Count 3.51 L Hemoglobin 8.0 L Hematocrit 26.0 L Mean Corpuscular Volume 74.1 L Mean Corpuscular Hemoglobin 22.8 L Mean Corpuscular Hemoglobin Concent 30.8 L Red Cell Distribution Width 18.5 H Platelet Count 272 Mean Platelet Volume 11.2 H Immature Granulocytes % 4.000 H Neutrophils % 70.3 Lymphocytes % 17.1 Monocytes % 6.5 Eosinophils % 1.5 Basophils % 0.6 Nucleated Red Blood Cells % 0.1 H Immature Granulocytes # 0.680 H Neutrophils # 12.0 H Lymphocytes # 2.9 Monocytes # 1.1 H Eosinophils # 0.3 Basophils # 0.1 Nucleated Red Blood Cells # 0.0 Activated Partial Thromboplast Time 40.1 H Sodium Level 132 L Potassium Level 4.2 Chloride Level 96 L Carbon Dioxide Level 28 Anion Gap 8 Blood Urea Nitrogen 3 L Creatinine 0.75 Est Glomerular Filtrat Rate mL/min > 60 Glucose Level 131 Calcium Level 8.0 L Phosphorus Level 3.3 Magnesium Level 2.0 Total Bilirubin 0.3 Direct Bilirubin 0.00 Indirect Bilirubin 0.3 Aspartate Amino Transf (AST/SGOT) 435 H Alanine Aminotransferase (ALT/SGPT) 107 H Alkaline Phosphatase 140 H Total Protein 5.9 L Albumin 2.6 L Globulin 3.30 H Albumin/Globulin Ratio 0.78 Home Meds Discontinued Reported Medications Tramadol Hcl* (Ultram*) 50 Mg Tablet, 50 MG PO NEEDED PRN for PAIN, TAB 09/24/18 Discontinued Scripts Acetaminophen* (Tylenol*) 325 Mg Tablet, 650 MG PO Q4H PRN for MILD PAIN(1-3)OR ELEVATED TEMP for 30 Days, #120 TAB 6 Refills Prov:LORNE DANIELS MD 09/27/18 Citalopram Hydrobromide* (Celexa*) 20 Mg Tablet, 20 MG PO DAILY for 30 Days, #30 TAB 6 Refills Prov:LORNE DANIELS MD 09/27/18 Ferrous Sulfate* (Ferrous Sulfate*) 325 Mg Tabec, 325 MG PO DAILY for 30 Days, #30 TAB 7 Refills Prov:LORNE DANIELS MD 09/27/18 Ascorbic Acid (Vitamin C) 500 Mg Tab, 500 MG PO BID for 30 Days, #60 TAB Prov:MAYRA GARCIA 07/22/18 Ferrous Sulfate* (Ferrous Sulfate*) 325 Mg Tabec, 325 MG PO BID for 30 Days, #60 TAB Prov:MAYRA GARCIA 07/22/18 Tramadol HCl (Tramadol HCl) 50 Mg Tablet, 50 MG PO Q6 PRN for PAIN, #20 TAB Prov:CHELE,LASHAY 01/29/18 Medications Current Medications Heparin Sodium (Porcine) (Heparin (1000 Units/ml)) 6,100 unit PER PROTOCOL PRN IV aPTT<47 Last administered on 11/09/18at 06:59; Admin Dose 6,100 UNIT; Start 11/05/18 at 20:30 Heparin Sodium (Porcine) (Heparin (1000 Units/ml)) 3,000 unit PER PROTOCOL PRN IV aPTT<47-57; Start 11/05/18 at 20:30 Heparin Sodium (Porcine) 250 ml @ 0 mls/hr PER PROTOCOL IV Last administered on 11/09/18 07:01; Admin Dose 16 MLS/HR; Start 11/05/18 at 20:30 Ondansetron HCl (Zofran Inj) 4 mg Q6H PRN IV NAUSEA AND/OR VOMITING Last administered on 11/08/18 09:55; Admin Dose 4 MG; Start 11/06/18 at 01:30 Ipratropium [place] (Atrovent 0.02% (Neb)) 0.5 mg Q2H RESP THERAPY PRN NEB SHORTNESS OF BREATH; Start 11/06/18 at 01:30 Acetaminophen (Tylenol Liquid) 650 mg Q6H PRN PO PAIN LEVEL 1-3 OR FEVER; Start 11/06/18 at 01:30 Docusate Sodium (Colace) 100 mg Q12H PRN PO CONSTIPATION Last administered on 11/08/18 17:32; Admin Dose 100 MG; Start 11/06/18 at 01:30 Bisacodyl (Dulcolax) 5 mg DAILY PRN PO CONSTIPATION Last administered on 11/08/18 17:32; Admin Dose 5 MG; Start 11/06/18 at 01:30 Potassium Chloride/Dextrose/ Sod Cl 1,000 ml @ 100 mls/hr Q10H IV Last administered on 11/09/18 03:36; Admin Dose 100 MLS/HR; Start 11/06/18 at 07:00 Hydromorphone HCl (Dilaudid) 1 mg Q3H PRN IV BREAKTHROUGH PAIN Last administered on 11/09/18 08:33; Admin Dose 1 MG; Start 11/06/18 at 07:00 Hydromorphone HCl (Dilaudid) 4 mg Q4H PRN PO MODERATE PAIN LEVEL 4-6 Last administered on 11/09/18 05:54; Admin Dose 4 MG; Start 11/07/18 at 22:29 Famotidine (Pepcid) 20 mg BID PO Last administered on 11/09/18 09:14; Admin Dose 20 MG; Start 11/08/18 at 21:00 Assessment/Plan Hospital Course (Demo Recall) 1. Acute arterial insufficiency.-s/p open thrpmbectomy - con't pain Rx, vascular team follows 2. Lower extremity deep venous thrombosis in the right lower extremity - on anti-coagulation, heparin gtt stopped. 3. Sinus tachycardia in the setting the patient just had surgery with significant lower extremity pain - con't pain Rx. 4. History of prior transient ischemic attack. 5. History of possible right to left shunt at level of interatrial septum or atrial septal defect, most commonly patent foramen ovale - on anti-coagulation now. 6. Anemia, worsening - H/H checks - heparin gtt held now. 7. Leukocytosis. 8. Rhabdomyolysis. 9. Tachycardia-s tach mild to low 100's. Likley due to pain - better now. GALA ALDANA MD Nov 09, 2018 14:10
--- NOTE | 2018-11-09 15:11 | CONS ---
Assessment/Plan Assessment/Plan Assessment/Plan (Daily) 38 yo F with no PMH with previous history of TIA vs conversion disorder causing right sided paralysis that was resolving presented with unprovoked massive RLE DVT which caused compartment syndrome and decreased pulses s/p three compartment fasciotomy right calf, Norberto thrombectomy right posterior tibial artery and now on anticoagulation. # RLE unprovoked DVT -Patient is on heparin gtt at this time but held due to anemia. -When patient safe to be placed on anticoagulation from primary and surgery standpoint, she can be placed on eliquis or xarelto -She needs a total of treatment for at least three months. -In terms of hypercoagulable workup, patient can have full workup done after 3 months in outpatient. Labs done now will have false positivity and skew results due to active surgery and clotting. -Patient may have had a state of decreased movement prior as she was hospitalized for paralysis that is still not very well explained. -No family history of clotting disorder makes it unlikely it is genetic but will check in outpatient setting. Thank you to Dr. Resendiz for allowing me to participate in the care of this patient. Please feel free to call our team for further questions. Consultation Date/Type/Reason Admit Date/Time Nov 06, 2018 at 01:33 Date of Consultation: Nov 09, 2018 Type of Consult hematology Reason for Consultation RLE unprovoked DVT Date/Time of Note DATE: 11/09/18 TIME: 15:11 Hx of Present Illness 38 yo F with no PMH other than being admitted for some sort of neurological event in 09/2018 when she had right sided sudden paralysis. During that admission the patient was worked up by neurology and found to have a negative MRI of the brain and patient was placed on celexa and thought to be due conversion disorder. The patient states that after she was discharged she was not bedbound but did have issues ambulating. She stated that everything was baseline until the day of admission when she started having RLE pain that radiated down her right leg but no numbness. She states that the pain was at 10/10 and thus came into the hospital. She denied any recent injuries or surgeries. The RLE was noticeable for swelling and also had a mottled appearance and it was cold to touch. The pulses were also not palpable. RLE US showed a partial occluding DVT with occluded flow. ER tried to secure services of vascular surgeons and to try to transfer care for many hours. Eventually they were able to obtain the services of Dr. Poe who performed a three compartment fasciotomy right calf, Norberto thrombectomy right posterior tibial artery. Post operatively patient was placed on heparin and movement in the legs have improved with pulses but patient still cannot move her toes independently. We are consulted for hypercoagulable workup. PMH: as above PSxH: none SH: denies tobacco, ETOH or IVDA. FH: Denies any family history of blood disorders or cancers. No history of clot. Meds: see list All: NKDA Constitutional: no complaints, improved Eyes: no complaints ENT: no complaints Respiratory: no complaints Cardiovascular: no complaints Gastrointestinal: no complaints Genitourinary: no complaints Musculoskeletal: restricted range of motion Skin: no complaints Neurologic: no complaints Endocrine: no complaints Lymphatic: no complaints Psychological: no complaints, nl mood/affect Immunologic: no complaints Past Medical History Home Meds Discontinued Reported Medications Tramadol Hcl* (Ultram*) 50 Mg Tablet, 50 MG PO NEEDED PRN for PAIN, TAB 09/24/18 Discontinued Scripts Acetaminophen* (Tylenol*) 325 Mg Tablet, 650 MG PO Q4H PRN for MILD PAIN(1-3)OR ELEVATED TEMP for 30 Days, #120 TAB 6 Refills Prov:LORNE DANIELS MD 09/27/18 Citalopram Hydrobromide* (Celexa*) 20 Mg Tablet, 20 MG PO DAILY for 30 Days, #30 TAB 6 Refills Prov:LORNE DANIELS MD 09/27/18 Ferrous Sulfate* (Ferrous Sulfate*) 325 Mg Tabec, 325 MG PO DAILY for 30 Days, #30 TAB 7 Refills Prov:LORNE DANIELS MD 09/27/18 Ascorbic Acid (Vitamin C) 500 Mg Tab, 500 MG PO BID for 30 Days, #60 TAB Prov:MAYRA GARCIA 07/22/18 Ferrous Sulfate* (Ferrous Sulfate*) 325 Mg Tabec, 325 MG PO BID for 30 Days, #60 TAB Prov:MAYRA GARCIA 07/22/18 Tramadol HCl (Tramadol HCl) 50 Mg Tablet, 50 MG PO Q6 PRN for PAIN, #20 TAB Prov:CHELE,LASHAY 01/29/18 Medications Current Medications Heparin Sodium (Porcine) (Heparin (1000 Units/ml)) 6,100 unit PER PROTOCOL PRN IV aPTT<47 Last administered on 11/09/18 06:59; Admin Dose 6,100 UNIT; Start 11/05/18 at 20:30 Heparin Sodium (Porcine) (Heparin (1000 Units/ml)) 3,000 unit PER PROTOCOL PRN IV aPTT<47-57; Start 11/05/18 at 20:30 Heparin Sodium (Porcine) 250 ml @ 0 mls/hr PER PROTOCOL IV Last administered on 11/09/18 07:01; Admin Dose 16 MLS/HR; Start 11/05/18 at 20:30 Ondansetron HCl (Zofran Inj) 4 mg Q6H PRN IV NAUSEA AND/OR VOMITING Last administered on 11/08/18 09:55; Admin Dose 4 MG; Start 11/06/18 at 01:30 Ipratropium [place] (Atrovent 0.02% (Neb)) 0.5 mg Q2H RESP THERAPY PRN NEB SHORTNESS OF BREATH; Start 11/06/18 at 01:30 Acetaminophen (Tylenol Liquid) 650 mg Q6H PRN PO PAIN LEVEL 1-3 OR FEVER; Start 11/06/18 at 01:30 Docusate Sodium (Colace) 100 mg Q12H PRN PO CONSTIPATION Last administered on 11/08/18 17:32; Admin Dose 100 MG; Start 11/06/18 at 01:30 Bisacodyl (Dulcolax) 5 mg DAILY PRN PO CONSTIPATION Last administered on 11/08/18 17:32; Admin Dose 5 MG; Start 11/06/18 at 01:30 Potassium Chloride/Dextrose/ Sod Cl 1,000 ml @ 100 mls/hr Q10H IV Last administered on 11/09/18 14:20; Admin Dose 100 MLS/HR; Start 11/06/18 at 07:00 Hydromorphone HCl (Dilaudid) 1 mg Q3H PRN IV BREAKTHROUGH PAIN Last administered on 11/09/18 14:15; Admin Dose 1 MG; Start 11/06/18 at 07:00 Hydromorphone HCl (Dilaudid) 4 mg Q4H PRN PO MODERATE PAIN LEVEL 4-6 Last administered on 11/09/18 05:54; Admin Dose 4 MG; Start 11/07/18 at 22:29 Famotidine (Pepcid) 20 mg BID PO Last administered on 11/09/18at 09:14; Admin Dose 20 MG; Start 11/08/18 at 21:00 Allergies: Coded Allergies: No Known Allergy (Unverified , 11/05/18) Social History Alcohol Use: none Smoking Status: Never smoker Drug Use: none Exam/Review of Systems Exam Vitals Vital Signs Date Temp Pulse Resp B/P (MAP) Pulse Ox O2 O2 Flow FiO2 Time Delivery Rate 11/09/18 92 12:53 11/09/18 98.0 18 100/67 98 12:29 (78) 11/09/18 Nasal 2.0 09:52 Cannula 11/09/18 21 04:25 Intake and Output 11/08/18 11/08/18 11/09/18 1515:00 23:00 07:00 IntakeIntake Total 2004 ml 1262 ml 1943 ml OutputOutput Total 1400 ml 1100 ml 2500 ml BalanceBalance 604 ml 162 ml -557 ml Constitutional: alert, oriented, well developed Psych: no complaints, nl mood/affect Head: normocephalic, atraumatic Eyes: nl conjunctiva, EOMI, nl lids, nl sclera, PERRL ENMT: nl external ears & nose, nl lips & teeth, nl nasal mucosa & septum, mucosa pink and moist Neck: supple, non-tender Respiratory: clear to auscultation, normal air movement Cardiovascular: regular rate and rhythm, nl pulses Gastrointestinal: soft, nl liver, spleen, non-tender Musculoskeletal: muscle weakness, range of motion Extremities: normal pulses Neurological: LO[employer] WORK[employer] II-XII intact, nl mental status, nl speech, focal weakness Skin: nl turgor; No rash or lesions Lymph: nl lymph nodes Results Result Diagram: 11/09/18 0533 11/09/18 0533 Results 24hrs Laboratory Tests Test 11/09/18 05:33 11/09/18 14:10 White Blood Count 17.0 H Red Blood Count 3.51 L Hemoglobin 8.0 L Hematocrit 26.0 L Mean Corpuscular Volume 74.1 L Mean Corpuscular Hemoglobin 22.8 L Mean Corpuscular Hemoglobin Concent 30.8 L Red Cell Distribution Width 18.5 H Platelet Count 272 Mean Platelet Volume 11.2 H Immature Granulocytes % 4.000 H Neutrophils % 70.3 Lymphocytes % 17.1 Monocytes % 6.5 Eosinophils % 1.5 Basophils % 0.6 Nucleated Red Blood Cells % 0.1 H Immature Granulocytes # 0.680 H Neutrophils # 12.0 H Lymphocytes # 2.9 Monocytes # 1.1 H Eosinophils # 0.3 Basophils # 0.1 Nucleated Red Blood Cells # 0.0 Activated Partial Thromboplast Time 40.1 H 36.8 H Sodium Level 132 L Potassium Level 4.2 Chloride Level 96 L Carbon Dioxide Level 28 Anion Gap 8 Blood Urea Nitrogen 3 L Creatinine 0.75 Est Glomerular Filtrat Rate mL/min > 60 Glucose Level 131 Calcium Level 8.0 L Phosphorus Level 3.3 Magnesium Level 2.0 Total Bilirubin 0.3 Direct Bilirubin 0.00 Indirect Bilirubin 0.3 Aspartate Amino Transf (AST/SGOT) 435 H Alanine Aminotransferase (ALT/SGPT) 107 H Alkaline Phosphatase 140 H Total Protein 5.9 L Albumin 2.6 L Globulin 3.30 H Albumin/Globulin Ratio 0.78 Medications Medication Current Medications Heparin Sodium (Porcine) (Heparin (1000 Units/ml)) 6,100 unit PER PROTOCOL PRN IV aPTT<47 Last administered on 11/09/18at 06:59; Admin Dose 6,100 UNIT; Start 11/05/18 at 20:30 Heparin Sodium (Porcine) (Heparin (1000 Units/ml)) 3,000 unit PER PROTOCOL PRN IV aPTT<47-57; Start 11/05/18 at 20:30 Heparin Sodium (Porcine) 250 ml @ 0 mls/hr PER PROTOCOL IV Last administered on 11/09/18at 07:01; Admin Dose 16 MLS/HR; Start 11/05/18 at 20:30 Ondansetron HCl (Zofran Inj) 4 mg Q6H PRN IV NAUSEA AND/OR VOMITING Last administered on 11/08/18at 09:55; Admin Dose 4 MG; Start 11/06/18 at 01:30 Ipratropium [place] (Atrovent 0.02% (Neb)) 0.5 mg Q2H RESP THERAPY PRN NEB SHORTNESS OF BREATH; Start 11/06/18 at 01:30 Acetaminophen (Tylenol Liquid) 650 mg Q6H PRN PO PAIN LEVEL 1-3 OR FEVER; Start 11/06/18 at 01:30 Docusate Sodium (Colace) 100 mg Q12H PRN PO CONSTIPATION Last administered on 11/08/18 17:32; Admin Dose 100 MG; Start 11/06/18 at 01:30 Bisacodyl (Dulcolax) 5 mg DAILY PRN PO CONSTIPATION Last administered on 11/08/18 17:32; Admin Dose 5 MG; Start 11/06/18 at 01:30 Potassium Chloride/Dextrose/ Sod Cl 1,000 ml @ 100 mls/hr Q10H IV Last admi nistered on 11/09/18 14:20; Admin Dose 100 MLS/HR; Start 11/06/18 at 07:00 Hydromorphone HCl (Dilaudid) 1 mg Q3H PRN IV BREAKTHROUGH PAIN Last administered on 11/09/18 14:15; Admin Dose 1 MG; Start 11/06/18 at 07:00 Hydromorphone HCl (Dilaudid) 4 mg Q4H PRN PO MODERATE PAIN LEVEL 4-6 Last administered on 11/09/18 05:54; Admin Dose 4 MG; Start 11/07/18 at 22:29 Famotidine (Pepcid) 20 mg BID PO Last administered on 11/09/18 09:14; Admin Dose 20 MG; Start 11/08/18 at 21:00 ELIA ZHANG DO Nov 09, 2018 15:11
[2018-11-10] VITALS (11 sets, daily range): BP systolic 99–119; BP diastolic 53–80; PULSE 63–104; RESP 18–23
[2018-11-10] MEDS: D5W-0.45 NACL + KCL 20 MEQ 1,000 ML IV SCH ×3 (01:19→20:48)
[2018-11-10] MEDS: HYDROmorphONE 2 MG TAB PO PRN ×3 (03:04→16:35)
[2018-11-10] MEDS: HYDROmorphONE 1 MG/ML SYG IV PRN ×3 (06:21→20:11)
[2018-11-10] MEDS: FAMOTIDINE 20 MG TAB PO SCH ×2 (09:28→22:42)
--- NOTE | 2018-11-10 11:12 | PN ---
Date/Time of Note Date/Time of Note DATE: 11/10/18 TIME: 11:09 Assessment/Plan VTE Prophylaxis Risk score (from Ns)>0 risk: 6 SCD applied (from Ns): Yes Pharmacological prophylaxis: NA/contraindicated Pharm contraindication: bleeding Lines/Catheters IV Catheter Type (from Nrsg): Peripheral IV Urinary Cath still in place: Yes Reason Cath still needed: urinary retention Assessment/Plan Hospital Course S: Patient seen by surgery and hematology oncology team yesterday. Patient had some nosebleeding yesterday and heparin drip was stopped. O: VS - see below PE: General: Well developed woman awake and alert, no distress HEENT: Atraumatic, normocephalic. Neck: Supple with full range of motion. No rigidity or meningismus Chest: Nontender Lungs: Clear to auscultation bilaterally no crackles rales or wheezing Heart: Sinus tachy, no murmurs Abdomen: Soft , nontender, nondistended. No guarding no rebound tenderness , Extremities: Right lower extremity: Skin: Right lower extremity: Dressing clean. Mild swelling. Right slight positive DP pulse felt, warm. Left foot has + DP pulse and is warm. DATE OF OPERATION: 11/06/2018 PREOPERATIVE DIAGNOSES: Deep vein thrombosis right leg, arterial insufficiency right leg, compartment syndrome right leg, arterial insufficiency right leg, compartment syndrome right leg. POSTOPERATIVE DIAGNOSES: Deep vein thrombosis right leg, arterial insufficiency right leg, compartment syndrome right leg, arterial insufficiency right leg, compartment syndrome right leg. OPERATIVE PROCEDURE: Three compartment fasciotomy right calf, Norberto thrombectomy right posterior tibial artery. Assessment/Plan: 38 yo woman no major PMH presents with RLE acute limb ischemia plus DVT. # Right lower extremity DVT with ischemia- Patient was found to have a right lower extremity DVT on ultrasound as well as arterial occlusion on CT imaging. Now s/p three compartment fasciotomy right calf, Norberto thrombectomy right posterior tibial artery by Dr. Poe (11/06) - postop day # 3. 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 -For now start oral anticoagulation as recommended by heme/onc team, when cleared to be started by vascular surgery team -Continue Dilaudid PO and IV for pain control -Follow-up recommendations from PT eval # Atrial septal defect- Patient has atrial septal defect as seen on echo with bubble 09/24/2018. -Appreciate cardiology consult, follow-up their further recommendations Dr. Melara to evaluate if pt should get this shunt closed? # Iron deficiency anemia- Ferritin deficient.-Patient received IV ferrlicit- Also postoperative bleeding, required PRBC transfusion 3 days ago -Hemoglobin presently stable, continue to monitor CBC daily # EULOGIO: Resolved likely secondary to hemodynamics, mild dehydration. -For now continue IV fluid hydration - Monitor renal function. Avoid nephrotoxic agents. # Prediabetes: Recent hemoglobin A1c 6.2, - encourage diet and lifestyle modification. - Monitor blood sugars while inpatient. # obesity: Encourage diet and exercise, patient has prediabetes please see #4. TSH was within normal values during previous admission. Result Diagram: 11/10/18 0514 11/09/18 0533 Results 24hrs Laboratory Tests Test 11/09/18 14:10 11/10/18 05:14 Activated Partial Thromboplast Time 36.8 H White Blood Count 16.8 H Red Blood Count 3.68 L Hemoglobin 8.3 L Hematocrit 27.5 L Mean Corpuscular Volume 74.7 L Mean Corpuscular Hemoglobin 22.6 L Mean Corpuscular Hemoglobin Concent 30.2 L Red Cell Distribution Width 19.9 H Platelet Count 308 Mean Platelet Volume 11.0 H Immature Granulocytes % 6.000 H Neutrophils % Segmented Neutrophils % (Manual) 66 Band Neutrophils % (Manual) 9 H Lymphocytes % Lymphocytes % (Manual) 18 Monocytes % Monocytes % (Manual) 6 Eosinophils % Basophils % Myelocytes % (Manual) 1 H Nucleated Red Blood Cells % 0.3 H Immature Granulocytes # 1.010 H Neutrophils # Neutrophils # (Manual) 11.3 H Band Neutrophils # 1.5 H Lymphocytes (Manual) 3.0 H Lymphocytes # Monocytes # Monocytes # (Manual) 1.0 H Eosinophils # Basophils # Myelocytes # 0.1 H Nucleated Red Blood Cells # Platelet Estimate NORMAL Giant Platelets 1 H Polychromasia 2+ Hypochromasia 2+ Anisocytosis 2+ Microcytosis 2+ Phosphorus Level 3.8 Magnesium Level 2.0 Total Bilirubin 0.3 Direct Bilirubin 0.00 Indirect Bilirubin 0.3 Aspartate Amino Transf (AST/SGOT) 291 H Alanine Aminotransferase (ALT/SGPT) 101 H Alkaline Phosphatase 152 H Total Protein 6.1 Albumin 2.9 L Exam/Review of Systems Exam Vitals Vital Signs Date Temp Pulse Resp B/P (MAP) Pulse Ox O2 O2 Flow FiO2 Time Delivery Rate 11/10/18 Nasal 2.0 08:30 Cannula 11/10/18 98 08:00 11/10/18 98.0 23 99/60 (73) 96 07:33 11/09/18 21 04:25 Intake and Output 11/09/18 11/09/18 11/10/18 1515:00 23:00 07:00 IntakeIntake Total 1000 ml 4100 ml OutputOutput Total 4500 ml 1800 ml BalanceBalance -3500 ml 2300 ml Results Results 24hrs Laboratory Tests Test 11/09/18 14:10 11/10/18 05:14 Activated Partial Thromboplast Time 36.8 H White Blood Count 16.8 H Red Blood Count 3.68 L Hemoglobin 8.3 L Hematocrit 27.5 L Mean Corpuscular Volume 74.7 L Mean Corpuscular Hemoglobin 22.6 L Mean Corpuscular Hemoglobin Concent 30.2 L Red Cell Distribution Width 19.9 H Platelet Count 308 Mean Platelet Volume 11.0 H Immature Granulocytes % 6.000 H Neutrophils % Segmented Neutrophils % (Manual) 66 Band Neutrophils % (Manual) 9 H Lymphocytes % Lymphocytes % (Manual) 18 Monocytes % Monocytes % (Manual) 6 Eosinophils % Basophils % Myelocytes % (Manual) 1 H Nucleated Red Blood Cells % 0.3 H Immature Granulocytes # 1.010 H Neutrophils # Neutrophils # (Manual) 11.3 H Band Neutrophils # 1.5 H Lymphocytes (Manual) 3.0 H Lymphocytes # Monocytes # Monocytes # (Manual) 1.0 H Eosinophils # Basophils # Myelocytes # 0.1 H Nucleated Red Blood Cells # Platelet Estimate NORMAL Giant Platelets 1 H Polychromasia 2+ Hypochromasia 2+ Anisocytosis 2+ Microcytosis 2+ Phosphorus Level 3.8 Magnesium Level 2.0 Total Bilirubin 0.3 Direct Bilirubin 0.00 Indirect Bilirubin 0.3 Aspartate Amino Transf (AST/SGOT) 291 H Alanine Aminotransferase (ALT/SGPT) 101 H Alkaline Phosphatase 152 H Total Protein 6.1 Albumin 2.9 L Medications Medication Current Medications Ondansetron HCl (Zofran Inj) 4 mg Q6H PRN IV NAUSEA AND/OR VOMITING Last administered on 11/08/18at 09:55; Admin Dose 4 MG; Start 11/06/18 at 01:30 Ipratropium [place] (Atrovent 0.02% (Neb)) 0.5 mg Q2H RESP THERAPY PRN NEB SHORTNESS OF BREATH; Start 11/06/18 at 01:30 Acetaminophen (Tylenol Liquid) 650 mg Q6H PRN PO PAIN LEVEL 1-3 OR FEVER; Start 11/06/18 at 01:30 Docusate Sodium (Colace) 100 mg Q12H PRN PO CONSTIPATION Last administered on 11/08/18 17:32; Admin Dose 100 MG; Start 11/06/18 at 01:30 Bisacodyl (Dulcolax) 5 mg DAILY PRN PO CONSTIPATION Last administered on 11/08/18 17:32; Admin Dose 5 MG; Start 11/06/18 at 01:30 Potassium Chloride/Dextrose/ Sod Cl 1,000 ml @ 100 mls/hr Q10H IV Last administered on 11/10/18 01:19; Admin Dose 100 MLS/HR; Start 11/06/18 at 07:00 Hydromorphone HCl (Dilaudid) 1 mg Q3H PRN IV BREAKTHROUGH PAIN Last administered on 11/10/18 06:21; Admin Dose 1 MG; Start 11/06/18 at 07:00 Hydromorphone HCl (Dilaudid) 4 mg Q4H PRN PO MODERATE PAIN LEVEL 4-6 Last administered on 11/10/18 09:31; Admin Dose 4 MG; Start 11/07/18 at 22:29 Famotidine (Pepcid) 20 mg BID PO Last administered on 11/10/18 09:28; Admin Dose 20 MG; Start 11/08/18 at 21:00 ONEIL VOGEL Nov 10, 2018 11:12
--- NOTE | 2018-11-10 13:20 | CONS ---
Assessment/Plan Assessment/Plan Hospital Course (Demo Recall) IMPRESSION: 1. Acute arterial insufficiency.-s/p open thrpmbectomy 2. Lower extremity deep venous thrombosis in the right lower extremity. 3. Sinus tachycardia in the setting the patient just had surgery with significant lower extremity pain. 4. History of prior transient ischemic attack. 5. History of possible right to left shunt at level of interatrial septum or atrial septal defect, most commonly patent foramen ovale. 6. Anemia, worsening. 7. Leukocytosis. 8. Rhabdomyolysis. 9. Tachycardia-s tach mild to low 100's. Likley due to pain Recc: -Tele -Pain control -Continue anticoagulation -local wound care Consultation Date/Type/Reason Admit Date/Time Nov 06, 2018 at 01:33 Initial Consult Date 01/07/19 Type of Consult Cardiology Reason for Consultation arterial insuff Requesting Provider: JUVE SOLIMAN MD Date/Time of Note DATE: 11/10/18 TIME: 13:18 Exam/Review of Systems Vital Signs Vitals Vital Signs Date Temp Pulse Resp B/P (MAP) Pulse Ox O2 O2 Flow FiO2 Time Delivery Rate 11/10/18 93 12:00 11/10/18 97.8 22 100/62 96 Room Air 11:51 (75) 11/10/18 2.0 08:30 11/09/18 21 04:25 Intake and Output 11/09/18 11/09/18 11/10/18 1515:00 23:00 07:00 IntakeIntake Total 1000 ml 4100 ml OutputOutput Total 4500 ml 1800 ml BalanceBalance -3500 ml 2300 ml Exam Exam Review of Systems: CONSTITUTIONAL: No fevers, chills. PULMONARY: No sob CARDIOVASCULAR: No chest pain/palpitations GASTROINTESTINAL: No nausea/vomiting. GENITOURINARY: No hematuria/dysuria. MUSCULOSKELETAL:pain in leg PSYCHIATRIC: The patient denies depression. NEUROLOGIC: No weakness Constitutional: alert, oriented Head: normocephalic ENMT: mucosa pink and moist Neck: supple, jvd (9 cm water) Respiratory: clear to auscultation Cardiovascular: regular rate and rhythm Gastrointestinal: soft, non-tender Musculoskeletal: muscle tone (normal) Extremities: pitting pedal edema (R LE), other (RLE covered by dressing s/p surgery) Neurological: other (No focal deficits) Labs Result Diagram: 11/10/18 0514 11/09/18 0533 Results 24hrs Laboratory Tests Test 11/09/18 14:10 11/10/18 05:14 11/10/18 11:41 Activated Partial Thromboplast Time 36.8 H White Blood Count 16.8 H Red Blood Count 3.68 L Hemoglobin 8.3 L Hematocrit 27.5 L Mean Corpuscular Volume 74.7 L Mean Corpuscular Hemoglobin 22.6 L Mean Corpuscular Hemoglobin Concent 30.2 L Red Cell Distribution Width 19.9 H Platelet Count 308 Mean Platelet Volume 11.0 H Immature Granulocytes % 6.000 H Neutrophils % Segmented Neutrophils % (Manual) 66 Band Neutrophils % (Manual) 9 H Lymphocytes % Lymphocytes % (Manual) 18 Monocytes % Monocytes % (Manual) 6 Eosinophils % Basophils % Myelocytes % (Manual) 1 H Nucleated Red Blood Cells % 0.3 H Immature Granulocytes # 1.010 H Neutrophils # Neutrophils # (Manual) 11.3 H Band Neutrophils # 1.5 H Lymphocytes (Manual) 3.0 H Lymphocytes # Monocytes # Monocytes # (Manual) 1.0 H Eosinophils # Basophils # Myelocytes # 0.1 H Nucleated Red Blood Cells # Platelet Estimate NORMAL Giant Platelets 1 H Polychromasia 2+ Hypochromasia 2+ Anisocytosis 2+ Microcytosis 2+ Phosphorus Level 3.8 Magnesium Level 2.0 Total Bilirubin 0.3 Direct Bilirubin 0.00 Indirect Bilirubin 0.3 Aspartate Amino Transf (AST/SGOT) 291 H Alanine Aminotransferase (ALT/SGPT) 101 H Alkaline Phosphatase 152 H Total Protein 6.1 Albumin 2.9 L Hepatitis B Surface Antigen NEGATIVE Hepatitis B Core Total Antibody Pending Hepatitis C Antibody Pending Medications Medications Current Medications Ondansetron HCl (Zofran Inj) 4 mg Q6H PRN IV NAUSEA AND/OR VOMITING Last administered on 11/08/18at 09:55; Admin Dose 4 MG; Start 11/06/18 at 01:30 Ipratropium [place] (Atrovent 0.02% (Neb)) 0.5 mg Q2H RESP THERAPY PRN NEB SHORTNESS OF BREATH; Start 11/06/18 at 01:30 Acetaminophen (Tylenol Liquid) 650 mg Q6H PRN PO PAIN LEVEL 1-3 OR FEVER; Start 11/06/18 at 01:30 Docusate Sodium (Colace) 100 mg Q12H PRN PO CONSTIPATION Last administered on 11/08/18 17:32; Admin Dose 100 MG; Start 11/06/18 at 01:30 Bisacodyl (Dulcolax) 5 mg DAILY PRN PO CONSTIPATION Last administered on 11/08/18 17:32; Admin Dose 5 MG; Start 11/06/18 at 01:30 Potassium Chloride/Dextrose/ Sod Cl 1,000 ml @ 100 mls/hr Q10H IV Last administered on 11/10/18 01:19; Admin Dose 100 MLS/HR; Start 11/06/18 at 07:00 Hydromorphone HCl (Dilaudid) 1 mg Q3H PRN IV BREAKTHROUGH PAIN Last administered on 11/10/18 12:50; Admin Dose 1 MG; Start 11/06/18 at 07:00 Hydromorphone HCl (Dilaudid) 4 mg Q4H PRN PO MODERATE PAIN LEVEL 4-6 Last administered on 11/10/18 09:31; Admin Dose 4 MG; Start 11/07/18 at 22:29 Famotidine (Pepcid) 20 mg BID PO Last administered on 11/10/18 09:28; Admin Dose 20 MG; Start 11/08/18 at 21:00 JUVE POWELL Nov 10, 2018 13:20
--- NOTE | 2018-11-10 14:09 | PN ---
Date/Time of Note Date/Time of Note DATE: 11/10/18 TIME: 14:08 Assessment/Plan VTE Prophylaxis Risk score (from Ns)>0 risk: 6 [place] [facility] [place] Pharmacological prophylaxis: heparin Lines/Catheters IV Catheter Type (from [facility]): Peripheral IV Urinary Cath still in place: Yes Reason Cath still needed: other (indicate) (immobile) Assessment/Plan Assessment/Plan Stable. Foot warm. Wound vac in place. Afebrile. No movement leg. Possible some sensation dorsum of foot. Result Diagram: 11/10/18 0514 11/09/18 0533 Results 24hrs Laboratory Tests Test 11/09/18 14:10 11/10/18 05:14 11/10/18 11:41 Activated Partial Thromboplast Time 36.8 H White Blood Count 16.8 H Red Blood Count 3.68 L Hemoglobin 8.3 L Hematocrit 27.5 L Mean Corpuscular Volume 74.7 L Mean Corpuscular Hemoglobin 22.6 L Mean Corpuscular Hemoglobin Concent 30.2 L Red Cell Distribution Width 19.9 H Platelet Count 308 Mean Platelet Volume 11.0 H Immature Granulocytes % 6.000 H Neutrophils % Segmented Neutrophils % (Manual) 66 Band Neutrophils % (Manual) 9 H Lymphocytes % Lymphocytes % (Manual) 18 Monocytes % Monocytes % (Manual) 6 Eosinophils % Basophils % Myelocytes % (Manual) 1 H Nucleated Red Blood Cells % 0.3 H Immature Granulocytes # 1.010 H Neutrophils # Neutrophils # (Manual) 11.3 H Band Neutrophils # 1.5 H Lymphocytes (Manual) 3.0 H Lymphocytes # Monocytes # Monocytes # (Manual) 1.0 H Eosinophils # Basophils # Myelocytes # 0.1 H Nucleated Red Blood Cells # Platelet Estimate NORMAL Giant Platelets 1 H Polychromasia 2+ Hypochromasia 2+ Anisocytosis 2+ Microcytosis 2+ Phosphorus Level 3.8 Magnesium Level 2.0 Total Bilirubin 0.3 Direct Bilirubin 0.00 Indirect Bilirubin 0.3 Aspartate Amino Transf (AST/SGOT) 291 H Alanine Aminotransferase (ALT/SGPT) 101 H Alkaline Phosphatase 152 H Total Protein 6.1 Albumin 2.9 L Hepatitis B Surface Antigen NEGATIVE Hepatitis B Core Total Antibody NEGATIVE Hepatitis C Antibody NEGATIVE Exam/Review of Systems Exam Vitals Vital Signs Date Temp Pulse Resp B/P (MAP) Pulse Ox O2 O2 Flow FiO2 Time Delivery Rate 11/10/18 93 12:00 11/10/18 97.8 22 100/62 96 Room Air 11:51 (75) 11/10/18 2.0 08:30 11/09/18 21 04:25 Intake and Output 11/09/18 11/09/18 11/10/18 1515:00 23:00 07:00 IntakeIntake Total 1000 ml 4100 ml OutputOutput Total 4500 ml 1800 ml BalanceBalance -3500 ml 2300 ml Results Results 24hrs Laboratory Tests Test 11/09/18 14:10 11/10/18 05:14 11/10/18 11:41 Activated Partial Thromboplast Time 36.8 H White Blood Count 16.8 H Red Blood Count 3.68 L Hemoglobin 8.3 L Hematocrit 27.5 L Mean Corpuscular Volume 74.7 L Mean Corpuscular Hemoglobin 22.6 L Mean Corpuscular Hemoglobin Concent 30.2 L Red Cell Distribution Width 19.9 H Platelet Count 308 Mean Platelet Volume 11.0 H Immature Granulocytes % 6.000 H Neutrophils % Segmented Neutrophils % (Manual) 66 Band Neutrophils % (Manual) 9 H Lymphocytes % Lymphocytes % (Manual) 18 Monocytes % Monocytes % (Manual) 6 Eosinophils % Basophils % Myelocytes % (Manual) 1 H Nucleated Red Blood Cells % 0.3 H Immature Granulocytes # 1.010 H Neutrophils # Neutrophils # (Manual) 11.3 H Band Neutrophils # 1.5 H Lymphocytes (Manual) 3.0 H Lymphocytes # Monocytes # Monocytes # (Manual) 1.0 H Eosinophils # Basophils # Myelocytes # 0.1 H Nucleated Red Blood Cells # Platelet Estimate NORMAL Giant Platelets 1 H Polychromasia 2+ Hypochromasia 2+ Anisocytosis 2+ Microcytosis 2+ Phosphorus Level 3.8 Magnesium Level 2.0 Total Bilirubin 0.3 Direct Bilirubin 0.00 Indirect Bilirubin 0.3 Aspartate Amino Transf (AST/SGOT) 291 H Alanine Aminotransferase (ALT/SGPT) 101 H Alkaline Phosphatase 152 H Total Protein 6.1 Albumin 2.9 L Hepatitis B Surface Antigen NEGATIVE Hepatitis B Core Total Antibody NEGATIVE Hepatitis C Antibody NEGATIVE Medications Medication Current Medications Ondansetron HCl (Zofran Inj) 4 mg Q6H PRN IV NAUSEA AND/OR VOMITING Last administered on 11/08/18at 09:55; Admin Dose 4 MG; Start 11/06/18 at 01:30 Ipratropium [place] (Atrovent 0.02% (Neb)) 0.5 mg Q2H RESP THERAPY PRN NEB SHORTNESS OF BREATH; Start 11/06/18 at 01:30 Acetaminophen (Tylenol Liquid) 650 mg Q6H PRN PO PAIN LEVEL 1-3 OR FEVER; Start 11/06/18 at 01:30 Docusate Sodium (Colace) 100 mg Q12H PRN PO CONSTIPATION Last administered on 11/08/18 17:32; Admin Dose 100 MG; Start 11/06/18 at 01:30 Bisacodyl (Dulcolax) 5 mg DAILY PRN PO CONSTIPATION Last administered on 11/08/18 17:32; Admin Dose 5 MG; Start 11/06/18 at 01:30 Potassium Chloride/Dextrose/ Sod Cl 1,000 ml @ 100 mls/hr Q10H IV Last administered on 11/10/18 01:19; Admin Dose 100 MLS/HR; Start 11/06/18 at 07:00 Hydromorphone HCl (Dilaudid) 1 mg Q3H PRN IV BREAKTHROUGH PAIN Last adminis tered on 11/10/18 12:50; Admin Dose 1 MG; Start 11/06/18 at 07:00 Hydromorphone HCl (Dilaudid) 4 mg Q4H PRN PO MODERATE PAIN LEVEL 4-6 Last administered on 11/10/18 09:31; Admin Dose 4 MG; Start 11/07/18 at 22:29 Famotidine (Pepcid) 20 mg BID PO Last administered on 11/10/18 09:28; Admin Dose 20 MG; Start 11/08/18 at 21:00 FLACO GARCIA MD Nov 10, 2018 14:09
[2018-11-11] VITALS (11 sets, daily range): BP systolic 98–124; BP diastolic 57–70; PULSE 98–128; RESP 18–22
[2018-11-11] MEDS: D5W-0.45 NACL + KCL 20 MEQ 1,000 ML IV SCH ×2 (06:50→16:32)
--- NOTE | 2018-11-11 07:01 | PN ---
Date/Time of Note Date/Time of Note DATE: 11/11/18 TIME: 07:00 Assessment/Plan Lines/Catheters IV Catheter Type (from Nrs): Peripheral IV Mullen in Place (from Nrs): Yes Assessment/Plan Chief Complaint/Hosp Course WBC 19K. wound vac, needs anticoagulation. will see prn. follow up with Dr. Poe after discharge. Exam/Review of Systems Vital Signs Vitals Vital Signs Date Temp Pulse Resp B/P (MAP) Pulse Ox O2 O2 Flow FiO2 Time Delivery Rate 11/11/18 98.9 118 20 118/57 98 04:09 (77) 11/10/18 Nasal 2.0 20:00 Cannula 11/09/18 21 04:25 Intake and Output 11/10/18 11/10/18 11/11/18 1515:00 23:00 07:00 IntakeIntake Total 1600 ml 1000 ml OutputOutput Total 4050 ml 4200 ml BalanceBalance -2450 ml -3200 ml Results Result Diagram: 11/11/18 0540 11/11/18 0540 YOLANDA GONZALEZ MD Nov 11, 2018 07:01
[2018-11-11] MEDS: HYDROmorphONE 2 MG TAB PO PRN ×2 (07:02→13:17)
[2018-11-11] MEDS: FAMOTIDINE 20 MG TAB PO SCH ×2 (08:41→21:20)
[2018-11-11] MEDS: APIXABAN 5 MG TABLET PO SCH ×2 (10:16→21:20)
[2018-11-11] MEDS: HYDROmorphONE 1 MG/ML SYG IV PRN ×2 (10:16→16:32)
--- NOTE | 2018-11-11 10:29 | PN ---
Date/Time of Note Date/Time of Note DATE: 11/11/18 TIME: 10:18 Assessment/Plan VTE Prophylaxis Risk score (from Ns)>0 risk: 6 SCD applied (from Ns): Yes Pharmacological prophylaxis: NA/contraindicated Pharm contraindication: bleeding Lines/Catheters IV Catheter Type (from Nrsg): Peripheral IV Urinary Cath still in place: Yes Reason Cath still needed: urinary retention Assessment/Plan Hospital Course S: Patient now started on Eliquis, seen by surgery team earlier today. Has wound VAC in place. O: VS - see below PE: General: Well developed woman awake and alert, no distress HEENT: Atraumatic, normocephalic. Neck: Supple with full range of motion. No rigidity or meningismus Chest: Nontender Lungs: Clear to auscultation bilaterally no crackles rales or wheezing Heart: Sinus tachy, no murmurs Abdomen: Soft , nontender, nondistended. No guarding no rebound tenderness , Extremities: Right lower extremity: Wound VAC in place, slight positive DP pulse felt, warm. Left foot has + DP pulse and is warm. DATE OF OPERATION: 11/06/2018 PREOPERATIVE DIAGNOSES: Deep vein thrombosis right leg, arterial insufficiency right leg, compartment syndrome right leg, arterial insufficiency right leg, compartment syndrome right leg. POSTOPERATIVE DIAGNOSES: Deep vein thrombosis right leg, arterial insufficiency right leg, compartment syndrome right leg, arterial insufficiency right leg, compartment syndrome right leg. OPERATIVE PROCEDURE: Three compartment fasciotomy right calf, Norberto thrombectomy right posterior tibial artery. Assessment/Plan: 38 yo woman no major PMH presents with RLE acute limb ischemia plus DVT. # Right lower extremity DVT with ischemia- Patient was found to have a right lower extremity DVT on ultrasound as well as arterial occlusion on CT imaging. Now s/p three compartment fasciotomy right calf, Norberto thrombectomy right posterior tibial artery by Dr. Poe (11/06) - postop day # 4. 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 -Now on Eliquis 5 mg twice daily as recommended by heme/onc team, monitor -Continue Dilaudid PO and IV for pain control, continue wound VAC -Follow-up recommendations from PT eval # Atrial septal defect- Patient has atrial septal defect as seen on echo with bubble 09/24/2018. -Appreciate cardiology consult, follow-up their further recommendations Dr. Melara to evaluate if pt should get this shunt closed? # Iron deficiency anemia- Ferritin deficient.-Patient received IV ferrlicit- Also postoperative bleeding, required PRBC transfusion 4 days ago -Hemoglobin presently stable, continue to monitor CBC daily # EULOGIO: Resolved likely secondary to hemodynamics, mild dehydration. -For now continue IV fluid hydration - Monitor renal function. Avoid nephrotoxic agents. # Prediabetes: Recent hemoglobin A1c 6.2, - encourage diet and lifestyle modification. - Monitor blood sugars while inpatient. # obesity: Encourage diet and exercise, patient has prediabetes please see #4. TSH was within normal values during previous admission. Dispo: We will discuss with surgery team about the length of time needed with the wound VAC and she will need to have this set up for home use. She also needs insurance approval for her Eliquis anticoagulation medication which she w ill need to take for 3 months. Result Diagram: 11/11/18 0540 11/11/18 0540 Results 24hrs Laboratory Tests Test 11/10/18 11:41 11/11/18 05:40 Hepatitis B Surface Antigen NEGATIVE Hepatitis B Core Total Antibody NEGATIVE Hepatitis C Antibody NEGATIVE White Blood Count 19.6 H Red Blood Count 3.99 L Hemoglobin 8.9 L Hematocrit 29.8 L Mean Corpuscular Volume 74.7 L Mean Corpuscular Hemoglobin 22.3 L Mean Corpuscular Hemoglobin Concent 29.9 L Red Cell Distribution Width 20.7 H Platelet Count 357 Mean Platelet Volume 11.0 H Immature Granulocytes % 6.500 H Neutrophils % Segmented Neutrophils % (Manual) 66 Band Neutrophils % (Manual) 8 H Lymphocytes % Lymphocytes % (Manual) 13 L Monocytes % Monocytes % (Manual) 9 Eosinophils % Basophils % Metamyelocytes % (manual) 2 H Myelocytes % (Manual) 2 H Nucleated Red Blood Cells % 0.4 H Immature Granulocytes # 1.280 H Neutrophils # Neutrophils # (Manual) 13.2 H Band Neutrophils # 1.5 H Lymphocytes (Manual) 2.5 Lymphocytes # Monocytes # Monocytes # (Manual) 1.7 H Eosinophils # Basophils # Metamyelocytes # 0.3 H Myelocytes # 0.3 H Nucleated Red Blood Cells # Platelet Estimate NORMAL Polychromasia 3+ Poikilocytosis 1+ Anisocytosis 2+ Microcytosis 1+ Target Cells 1+ Sodium Level 135 Potassium Level 4.1 Chloride Level 99 Carbon Dioxide Level 27 Anion Gap 9 Blood Urea Nitrogen 5 L Creatinine 0.63 Est Glomerular Filtrat Rate mL/min > 60 Glucose Level 167 Calcium Level 8.5 Total Bilirubin 0.3 Direct Bilirubin 0.00 Indirect Bilirubin 0.3 Aspartate Amino Transf (AST/SGOT) 191 H Alanine Aminotransferase (ALT/SGPT) 85 H Alkaline Phosphatase 158 H Total Protein 6.9 Albumin 3.2 L Globulin 3.70 H Albumin/Globulin Ratio 0.86 Exam/Review of Systems Exam Vitals Vital Signs Date Temp Pulse Resp B/P (MAP) Pulse Ox O2 O2 Flow FiO2 Time Delivery Rate 11/11/18 104 08:16 11/11/18 97.6 22 119/70 96 Room Air 07:31 (86) 11/10/18 2.0 20:00 11/09/18 21 04:25 Intake and Output 11/10/18 11/10/18 11/11/18 1515:00 23:00 07:00 IntakeIntake Total 1600 ml 1600 ml OutputOutput Total 4050 ml 6200 ml BalanceBalance -2450 ml -4600 ml Results Results 24hrs Laboratory Tests Test 11/10/18 11:41 11/11/18 05:40 Hepatitis B Surface Antigen NEGATIVE Hepatitis B Core Total Antibody NEGATIVE Hepatitis C Antibody NEGATIVE White Blood Count 19.6 H Red Blood Count 3.99 L Hemoglobin 8.9 L Hematocrit 29.8 L Mean Corpuscular Volume 74.7 L Mean Corpuscular Hemoglobin 22.3 L Mean Corpuscular Hemoglobin Concent 29.9 L Red Cell Distribution Width 20.7 H Platelet Count 357 Mean Platelet Volume 11.0 H Immature Granulocytes % 6.500 H Neutrophils % Segmented Neutrophils % (Manual) 66 Band Neutrophils % (Manual) 8 H Lymphocytes % Lymphocytes % (Manual) 13 L Monocytes % Monocytes % (Manual) 9 Eosinophils % Basophils % Metamyelocytes % (manual) 2 H Myelocytes % (Manual) 2 H Nucleated Red Blood Cells % 0.4 H Immature Granulocytes # 1.280 H Neutrophils # Neutrophils # (Manual) 13.2 H Band Neutrophils # 1.5 H Lymphocytes (Manual) 2.5 Lymphocytes # Monocytes # Monocytes # (Manual) 1.7 H Eosinophils # Basophils # Metamyelocytes # 0.3 H Myelocytes # 0.3 H Nucleated Red Blood Cells # Platelet Estimate NORMAL Polychromasia 3+ Poikilocytosis 1+ Anisocytosis 2+ Microcytosis 1+ Target Cells 1+ Sodium Level 135 Potassium Level 4.1 Chloride Level 99 Carbon Dioxide Level 27 Anion Gap 9 Blood Urea Nitrogen 5 L Creatinine 0.63 Est Glomerular Filtrat Rate mL/min > 60 Glucose Level 167 Calcium Level 8.5 Total Bilirubin 0.3 Direct Bilirubin 0.00 Indirect Bilirubin 0.3 Aspartate Amino Transf (AST/SGOT) 191 H Alanine Aminotransferase (ALT/SGPT) 85 H Alkaline Phosphatase 158 H Total Protein 6.9 Albumin 3.2 L Globulin 3.70 H Albumin/Globulin Ratio 0.86 Medications Medication Current Medications Ondansetron HCl (Zofran Inj) 4 mg Q6H PRN IV NAUSEA AND/OR VOMITING Last administered on 11/08/18 09:55; Admin Dose 4 MG; Start 11/06/18 at 01:30 Ipratropium [place] (Atrovent 0.02% (Neb)) 0.5 mg Q2H RESP THERAPY PRN NEB SHORTNESS OF BREATH; Start 11/06/18 at 01:30 Acetaminophen (Tylenol Liquid) 650 mg Q6H PRN PO PAIN LEVEL 1-3 OR FEVER; Start 11/06/18 at 01:30 Docusate Sodium (Colace) 100 mg Q12H PRN PO CONSTIPATION Last administered on 11/08/18 17:32; Admin Dose 100 MG; Start 11/06/18 at 01:30 Bisacodyl (Dulcolax) 5 mg DAILY PRN PO CONSTIPATION Last administered on 11/08/18 17:32; Admin Dose 5 MG; Start 11/06/18 at 01:30 Potassium Chloride/Dextrose/ Sod Cl 1,000 ml @ 100 mls/hr Q10H IV Last administered on 11/11/18 06:50; Admin Dose 100 MLS/HR; Start 11/06/18 at 07:00 Hydromorphone HCl (Dilaudid) 1 mg Q3H PRN IV BREAKTHROUGH PAIN Last ad ministered on 11/10/18 20:11; Admin Dose 1 MG; Start 11/06/18 at 07:00 Hydromorphone HCl (Dilaudid) 4 mg Q4H PRN PO MODERATE PAIN LEVEL 4-6 Last administered on 3/28/19at 07:02; Admin Dose 4 MG; Start 11/07/18 at 22:29 Famotidine (Pepcid) 20 mg BID PO Last administered on 11/11/18at 08:41; Admin D ose 20 MG; Start 11/08/18 at 21:00 Apixaban (Eliquis) 5 mg BID PO ; Start 11/11/18 at 09:30 ONEIL VOGEL Nov 11, 2018 10:29
--- NOTE | 2018-11-11 13:52 | CONS ---
Assessment/Plan Assessment/Plan Hospital Course (Demo Recall) IMPRESSION: 1. Acute arterial insufficiency.-s/p open thrombectomy 2. Lower extremity deep venous thrombosis in the right lower extremity. 3. Sinus tachycardia in the setting the patient just had surgery with significant lower extremity pain. 4. History of prior transient ischemic attack. 5. History of possible right to left shunt at level of interatrial septum or atrial septal defect, most commonly patent foramen ovale. 6. Anemia, worsening. 7. Leukocytosis. 8. Rhabdomyolysis. 9. Tachycardia-s tach mild to low 100's. Likely due to pain Recc: -Tele -Pain control -Continue anticoagulation -local wound care Consultation Date/Type/Reason Admit Date/Time Nov 06, 2018 at 01:33 Initial Consult Date 01/07/19 Type of Consult Cardiology Reason for Consultation source of embolus Requesting Provider: JUVE SOLIMAN MD Date/Time of Note DATE: 11/11/18 TIME: 13:51 Exam/Review of Systems Vital Signs Vitals Vital Signs Date Temp Pulse Resp B/P (MAP) Pulse Ox O2 O2 Flow FiO2 Time Delivery Rate 11/11/18 101 12:08 11/11/18 98.0 21 119/68 96 11:08 (85) 11/11/18 Room Air 07:31 11/10/18 2.0 20:00 11/09/18 21 04:25 Intake and Output 11/10/18 11/10/18 11/11/18 1515:00 23:00 07:00 IntakeIntake Total 1600 ml 1600 ml OutputOutput Total 4050 ml 6200 ml BalanceBalance -2450 ml -4600 ml Exam Exam Review of Systems: CONSTITUTIONAL: No fevers, chills. PULMONARY: No sob CARDIOVASCULAR: No chest pain/palpitations GASTROINTESTINAL: No nausea/vomiting. GENITOURINARY: No hematuria/dysuria. MUSCULOSKELETAL: pain in leg PSYCHIATRIC: The patient denies depression. NEUROLOGIC: No weakness Constitutional: alert, oriented Psych: no complaints Head: normocephalic ENMT: mucosa pink and moist Neck: supple, jvd (9 cm water) Respiratory: diminished breath sounds Cardiovascular: regular rate and rhythm Gastrointestinal: soft, non-tender Musculoskeletal: muscle tone Extremities: edema (none) Neurological: other (No focal deficits) Labs Result Diagram: 11/11/18 0540 11/11/18 0540 Results 24hrs Laboratory Tests Test 11/11/18 05:40 White Blood Count 19.6 H Red Blood Count 3.99 L Hemoglobin 8.9 L Hematocrit 29.8 L Mean Corpuscular Volume 74.7 L Mean Corpuscular Hemoglobin 22.3 L Mean Corpuscular Hemoglobin Concent 29.9 L Red Cell Distribution Width 20.7 H Platelet Count 357 Mean Platelet Volume 11.0 H Immature Granulocytes % 6.500 H Neutrophils % Segmented Neutrophils % (Manual) 66 Band Neutrophils % (Manual) 8 H Lymphocytes % Lymphocytes % (Manual) 13 L Monocytes % Monocytes % (Manual) 9 Eosinophils % Basophils % Metamyelocytes % (manual) 2 H Myelocytes % (Manual) 2 H Nucleated Red Blood Cells % 0.4 H Immature Granulocytes # 1.280 H Neutrophils # Neutrophils # (Manual) 13.2 H Band Neutrophils # 1.5 H Lymphocytes (Manual) 2.5 Lymphocytes # Monocytes # Monocytes # (Manual) 1.7 H Eosinophils # Basophils # Metamyelocytes # 0.3 H Myelocytes # 0.3 H Nucleated Red Blood Cells # Platelet Estimate NORMAL Polychromasia 3+ Poikilocytosis 1+ Anisocytosis 2+ Microcytosis 1+ Target Cells 1+ Sodium Level 135 Potassium Level 4.1 Chloride Level 99 Carbon Dioxide Level 27 Anion Gap 9 Blood Urea Nitrogen 5 L Creatinine 0.63 Est Glomerular Filtrat Rate mL/min > 60 Glucose Level 167 Calcium Level 8.5 Total Bilirubin 0.3 Direct Bilirubin 0.00 Indirect Bilirubin 0.3 Aspartate Amino Transf (AST/SGOT) 191 H Alanine Aminotransferase (ALT/SGPT) 85 H Alkaline Phosphatase 158 H Total Protein 6.9 Albumin 3.2 L Globulin 3.70 H Albumin/Globulin Ratio 0.86 Medications Medications Current Medications Ondansetron HCl (Zofran Inj) 4 mg Q6H PRN IV NAUSEA AND/OR VOMITING Last administered on 11/08/18at 09:55; Admin Dose 4 MG; Start 11/06/18 at 01:30 Ipratropium [place] (Atrovent 0.02% (Neb)) 0.5 mg Q2H RESP THERAPY PRN NEB SHORTNESS OF BREATH; Start 11/06/18 at 01:30 Acetaminophen (Tylenol Liquid) 650 mg Q6H PRN PO PAIN LEVEL 1-3 OR FEVER; Start 11/06/18 at 01:30 Docusate Sodium (Colace) 100 mg Q12H PRN PO CONSTIPATION Last administered on 11/08/18 17:32; Admin Dose 100 MG; Start 11/06/18 at 01:30 Bisacodyl (Dulcolax) 5 mg DAILY PRN PO CONSTIPATION Last administered on 11/08/18 17:32; Admin Dose 5 MG; Start 11/06/18 at 01:30 Potassium Chloride/Dextrose/ Sod Cl 1,000 ml @ 100 mls/hr Q10H IV Last administered on 11/11/18 06:50; Admin Dose 100 MLS/HR; Start 11/06/18 at 07:00 Hydromorphone HCl (Dilaudid) 1 mg Q3H PRN IV BREAKTHROUGH PAIN Last administered on 11/11/18 10:16; Admin Dose 1 MG; Start 11/06/18 at 07:00 Hydromorphone HCl (Dilaudid) 4 mg Q4H PRN PO MODERATE PAIN LEVEL 4-6 Last administered on 11/11/18 13:17; Admin Dose 4 MG; Start 11/07/18 at 22:29 Famotidine (Pepcid) 20 mg BID PO Last administered on 11/11/18 08:41; Admin Dose 20 MG; Start 11/08/18 at 21:00 Apixaban (Eliquis) 5 mg BID PO Last administered on 11/11/18 10:16; Admin Dose 5 MG; Start 11/11/18 at 09:30 JUVE POWELL 28, 2019 13:52
[2018-11-12] VITALS (12 sets, daily range): BP systolic 111–118; BP diastolic 60–80; PULSE 88–157; RESP 18
[2018-11-12] MEDS ORDERED: HALOPERIDOL 5 MG INJ ONE (02:26)
[2018-11-12] MEDS ORDERED: LORAZEPAM 2 MG INJ IV PRN (02:30)
[2018-11-12] MEDS ORDERED: HALOPERIDOL 5 MG INJ IM ONE (02:30)
[2018-11-12] MEDS: D5W-0.45 NACL + KCL 20 MEQ 1,000 ML IV SCH ×3 (02:48→23:30)
--- NOTE | 2018-11-12 06:17 | PN ---
Date/Time of Note Date/Time of Note DATE: 11/12/18 TIME: 06:15 Assessment/Plan Lines/Catheters IV Catheter Type (from Nrs): Peripheral IV Mullen in Place (from Nrs): Yes Assessment/Plan Chief Complaint/Hosp Course WBC 24K. wound vac in place, became confused and got out of bed. pink, warm, gross movement of upper thigh, no toe movement. leukocytosis may be secondary to muscle necrosis if no other source identified. Exam/Review of Systems Vital Signs Vitals Vital Signs Date Temp Pulse Resp B/P (MAP) Pulse Ox O2 O2 Flow FiO2 Time Delivery Rate 11/12/18 100 04:00 11/12/18 98.2 18 118/80 98 02:40 (93) 11/11/18 Room Air 15:51 11/10/18 2.0 20:00 11/09/18 21 04:25 Intake and Output 11/11/18 11/11/18 11/12/18 1515:00 23:00 07:00 IntakeIntake Total 1600 ml OutputOutput Total 2500 ml BalanceBalance -900 ml Results Result Diagram: 11/12/18 0524 11/11/18 0540 YOLANDA GONZALEZ MD Nov 12, 2018 06:17
[2018-11-12] MEDS: APIXABAN 5 MG TABLET PO SCH ×2 (08:29→20:39)
[2018-11-12] MEDS: FAMOTIDINE 20 MG TAB PO SCH ×2 (08:29→20:39)
--- NOTE | 2018-11-12 10:19 | PN ---
Date/Time of Note Date/Time of Note DATE: 11/12/18 TIME: 10:15 Assessment/Plan VTE Prophylaxis Risk score (from Ns)>0 risk: 6 SCD applied (from Ns): No SCD contraindicated: other Pharmacological prophylaxis: apixaban Lines/Catheters IV Catheter Type (from Nrsg): Peripheral IV Urinary Cath still in place: Yes Reason Cath still needed: urinary retention Assessment/Plan Hospital Course S: Patient still has wound VAC in place. No fevers noted, seen by surgery team this morning. Work with PT yesterday. O: VS - see below PE: General: Well developed woman awake and alert, no distress HEENT: Atraumatic, normocephalic. Neck: Supple with full range of motion. No rigidity or meningismus Chest: Nontender Lungs: Clear to auscultation bilaterally no crackles rales or wheezing Heart: Sinus tachy, no murmurs Abdomen: Soft , nontender, nondistended. No guarding no rebound tenderness , Extremities: Right lower extremity: Wound VAC in place, slight positive DP pulse felt, warm. Left foot has + DP pulse and is warm. DATE OF OPERATION: 11/06/2018 PREOPERATIVE DIAGNOSES: Deep vein thrombosis right leg, arterial insufficiency right leg, compartment syndrome right leg, arterial insufficiency right leg, compartment syndrome right leg. POSTOPERATIVE DIAGNOSES: Deep vein thrombosis right leg, arterial insufficiency right leg, compartment syndrome right leg, arterial insufficiency right leg, compartment syndrome right leg. OPERATIVE PROCEDURE: Three compartment fasciotomy right calf, Norberto thrombectomy right posterior tibial artery. Assessment/Plan: 38 yo woman no major PMH presents with RLE acute limb ischemia plus DVT. # Right lower extremity DVT with ischemia- Patient was found to have a right lower extremity DVT on ultrasound as well as arterial occlusion on CT imaging, s/p three compartment fasciotomy right calf, Norberto thrombectomy right posterior tibial artery by Dr. Poe (11/06) - postop day # 5. 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 -Continue Eliquis 5 mg twice daily as recommended by heme/onc team, monitor -Continue Dilaudid PO and IV for pain control, continue wound VAC -Follow-up recommendations from PT eval # Atrial septal defect- Patient has atrial septal defect as seen on echo with bubble 09/24/2018. -Appreciate cardiology consult, follow-up their further recommendations Dr. Melara to evaluate if pt should get this shunt closed? # Iron deficiency anemia- Ferritin deficient.-Patient received IV ferrlicit- Also postoperative bleeding, required PRBC transfusion 5 days ago -Hemoglobin presently stable, continue to monitor CBC daily # EULOGIO: Resolved likely secondary to hemodynamics, mild dehydration. -For now continue IV fluid hydration - Monitor renal function. Avoid nephrotoxic agents. # Prediabetes: Recent hemoglobin A1c 6.2, - encourage diet and lifestyle modification. - Monitor blood sugars while inpatient. # obesity: Encourage diet and exercise, patient has prediabetes please see #4. TSH was within normal values during previous admission. #Leukocytosis: Unclear source. No fevers. White blood cell count up to 24,000 -We will check UA with urine culture, one sent for cultures, chest x-ray x1 Dispo: We will discuss with surgery team about the length of time needed with the wound VAC and she will need to have this set up for home use. She also needs insurance approval for her Eliquis anticoagulation medication which she will need to take for 3 months. Result Diagram: 11/12/18 0524 11/12/18 0524 Results 24hrs Laboratory Tests Test 11/12/18 05:24 White Blood Count 24.3 #H Red Blood Count 3.96 L Hemoglobin 9.0 L Hematocrit 29.1 L Mean Corpuscular Volume 73.5 L Mean Corpuscular Hemoglobin 22.7 L Mean Corpuscular Hemoglobin Concent 30.9 L Red Cell Distribution Width 21.6 H Platelet Count 399 Mean Platelet Volume 10.4 Immature Granulocytes % 6.000 H Neutrophils % Segmented Neutrophils % (Manual) 71 Band Neutrophils % (Manual) 16 H Lymphocytes % Lymphocytes % (Manual) 5 L Reactive Lymphocytes % (Manual) 1 H Monocytes % Monocytes % (Manual) 6 Eosinophils % Basophils % Basophils % (Manual) 1 Nucleated Red Blood Cells % 0.2 H Immature Granulocytes # 1.460 H Neutrophils # Neutrophils # (Manual) 18.2 H Band Neutrophils # 3.8 H Lymphocytes (Manual) 1.2 Lymphocytes # Reactive Lymphocytes # 0.2 H Monocytes # Monocytes # (Manual) 1.4 H Eosinophils # Basophils # Basophils # (Manual) 0.2 H Nucleated Red Blood Cells # Platelet Estimate NORMAL Polychromasia 1+ Poikilocytosis 1+ Anisocytosis 2+ Microcytosis 1+ Spherocytes 1+ Target Cells 1+ Sodium Level 134 L Potassium Level 4.3 Chloride Level 101 Carbon Dioxide Level 25 Anion Gap 8 Blood Urea Nitrogen 6 L Creatinine 0.64 Est Glomerular Filtrat Rate mL/min > 60 Glucose Level 154 Calcium Level 8.4 Phosphorus Level 4.2 Magnesium Level 2.0 Exam/Review of Systems Exam Vitals Vital Signs Date Temp Pulse Resp B/P (MAP) Pulse Ox O2 O2 Flow FiO2 Time Delivery Rate 11/12/18 107 08:04 11/12/18 98.3 18 115/72 98 07:47 (86) 11/12/18 Room Air 05:00 11/10/18 2.0 20:00 11/09/18 21 04:25 Intake and Output 11/11/18 11/11/18 11/12/18 1515:00 23:00 07:00 IntakeIntake Total 1600 ml 600 ml OutputOutput Total 2500 ml 1800 ml BalanceBalance -900 ml -1200 ml Results Results 24hrs Laboratory Tests Test 11/12/18 05:24 White Blood Count 24.3 #H Red Blood Count 3.96 L Hemoglobin 9.0 L Hematocrit 29.1 L Mean Corpuscular Volume 73.5 L Mean Corpuscular Hemoglobin 22.7 L Mean Corpuscular Hemoglobin Concent 30.9 L Red Cell Distribution Width 21.6 H Platelet Count 399 Mean Platelet Volume 10.4 Immature Granulocytes % 6.000 H Neutrophils % Segmented Neutrophils % (Manual) 71 Band Neutrophils % (Manual) 16 H Lymphocytes % Lymphocytes % (Manual) 5 L Reactive Lymphocytes % (Manual) 1 H Monocytes % Monocytes % (Manual) 6 Eosinophils % Basophils % Basophils % (Manual) 1 Nucleated Red Blood Cells % 0.2 H Immature Granulocytes # 1.460 H Neutrophils # Neutrophils # (Manual) 18.2 H Band Neutrophils # 3.8 H Lymphocytes (Manual) 1.2 Lymphocytes # Reactive Lymphocytes # 0.2 H Monocytes # Monocytes # (Manual) 1.4 H Eosinophils # Basophils # Basophils # (Manual) 0.2 H Nucleated Red Blood Cells # Platelet Estimate NORMAL Polychromasia 1+ Poikilocytosis 1+ Anisocytosis 2+ Microcytosis 1+ Spherocytes 1+ Target Cells 1+ Sodium Level 134 L Potassium Level 4.3 Chloride Level 101 Carbon Dioxide Level 25 Anion Gap 8 Blood Urea Nitrogen 6 L Creatinine 0.64 Est Glomerular Filtrat Rate mL/min > 60 Glucose Level 154 Calcium Level 8.4 Phosphorus Level 4.2 Magnesium Level 2.0 Medications Medication Current Medications Ondansetron HCl (Zofran Inj) 4 mg Q6H PRN IV NAUSEA AND/OR VOMITING Last administered on 11/08/18 09:55; Admin Dose 4 MG; Start 11/06/18 at 01:30 Ipratropium [place] (Atrovent 0.02% (Neb)) 0.5 mg Q2H RESP THERAPY PRN NEB SHORTNESS OF BREATH; Start 11/06/18 at 01:30 Acetaminophen (Tylenol Liquid) 650 mg Q6H PRN PO PAIN LEVEL 1-3 OR FEVER; Start 11/06/18 at 01:30 Docusate Sodium (Colace) 100 mg Q12H PRN PO CONSTIPATION Last administered on 11/08/18 17:32; Admin Dose 100 MG; Start 11/06/18 at 01:30 Bisacodyl (Dulcolax) 5 mg DAILY PRN PO CONSTIPATION Last administered on 11/08 17:32; Admin Dose 5 MG; Start 11/06/18 at 01:30 Potassium Chloride/Dextrose/ Sod Cl 1,000 ml @ 100 mls/hr Q10H IV Last administered on 11/12/18 02:48; Admin Dose 100 MLS/HR; Start 11/06/18 at 07:00 Hydromorphone HCl (Dilaudid) 1 mg Q3H PRN IV BREAKTHROUGH PAIN Last administered on 11/11/18 16:32; Admin Dose 1 MG; Start 11/06/18 at 07:00 Hydromorphone HCl (Dilaudid) 4 mg Q4H PRN PO MODERATE PAIN LEVEL 4-6 Last administered on 11/11/18 13:17; Admin Dose 4 MG; Start 11/07/18 at 22:29 Famotidine (Pepcid) 20 mg BID PO Last administered on 11/12/18 08:29; Admin Dose 20 MG; Start 11/08/18 at 21:00 Apixaban (Eliquis) 5 mg BID PO Last administered on 11/12/18 08:29; Admin Dose 5 MG; Start 11/11/18 at 09:30 Lorazepam (Ativan) 1 mg Q6H PRN IV ANXIETY; Start 11/12/18 at 02:30 ONEIL VOGEL Nov 12, 2018 10:18
--- NOTE | 2018-11-12 13:15 | CONS ---
Assessment/Plan Assessment/Plan Hospital Course (Demo Recall) IMPRESSION: 1. Acute arterial insufficiency.-s/p open thrombectomy 2. Lower extremity deep venous thrombosis in the right lower extremity. 3. Sinus tachycardia in the setting the patient just had surgery with significant lower extremity pain. 4. History of prior transient ischemic attack. 5. History of possible right to left shunt at level of interatrial septum or atrial septal defect, most commonly patent foramen ovale. 6. Anemia, worsening. 7. Leukocytosis. 8. Rhabdomyolysis. 9. Tachycardia-s tach mild to low 100's. Likely due to pain Recc: -Tele -Pain control -Continue anticoagulation -local wound care -would evluate interatrial septum with LUÍS at later date when has recoved from current surgery Consultation Date/Type/Reason Admit Date/Time Nov 06, 2018 at 01:33 Initial Consult Date 01/07/19 Type of Consult Cardiology Reason for Consultation arterial insufficiency/ASD Requesting Provider: JUVE SOLIMAN MD Date/Time of Note DATE: 11/12/18 TIME: 13:13 Exam/Review of Systems Vital Signs Vitals Vital Signs Date Temp Pulse Resp B/P (MAP) Pulse Ox O2 O2 Flow FiO2 Time Delivery Rate 11/12/18 104 12:03 11/12/18 98.3 18 117/69 98 11:47 (85) 11/12/18 Room Air 05:00 11/10/18 2.0 20:00 11/09/18 21 04:25 Intake and Output 11/11/18 11/11/18 11/12/18 1515:00 23:00 07:00 IntakeIntake Total 1600 ml 600 ml OutputOutput Total 2500 ml 1800 ml BalanceBalance -900 ml -1200 ml Exam Exam Review of Systems: CONSTITUTIONAL: No fevers, chills. PULMONARY: No sob CARDIOVASCULAR: No chest pain/palpitations GASTROINTESTINAL: No nausea/vomiting. GENITOURINARY: No hematuria/dysuria. MUSCULOSKELETAL: No myagias/arthalgias. PSYCHIATRIC: The patient denies depression. NEUROLOGIC: No weakness Constitutional: alert Psych: no complaints Head: normocephalic ENMT: mucosa pink and moist Neck: supple, jvd (9 cm water) Respiratory: clear to auscultation Cardiovascular: regular rate and rhythm Gastrointestinal: soft, non-tender Musculoskeletal: muscle tone (normal) Extremities: edema (none) Neurological: other (No focal deficits) Labs Result Diagram: 11/12/18 0524 11/12/18 0524 Results 24hrs Laboratory Tests Test 11/12/18 05:24 11/12/18 11:54 White Blood Count 24.3 #H Red Blood Count 3.96 L Hemoglobin 9.0 L Hematocrit 29.1 L Mean Corpuscular Volume 73.5 L Mean Corpuscular Hemoglobin 22.7 L Mean Corpuscular Hemoglobin Concent 30.9 L Red Cell Distribution Width 21.6 H Platelet Count 399 Mean Platelet Volume 10.4 Immature Granulocytes % 6.000 H Neutrophils % Segmented Neutrophils % (Manual) 71 Band Neutrophils % (Manual) 16 H Lymphocytes % Lymphocytes % (Manual) 5 L Reactive Lymphocytes % (Manual) 1 H Monocytes % Monocytes % (Manual) 6 Eosinophils % Basophils % Basophils % (Manual) 1 Nucleated Red Blood Cells % 0.2 H Immature Granulocytes # 1.460 H Neutrophils # Neutrophils # (Manual) 18.2 H Band Neutrophils # 3.8 H Lymphocytes (Manual) 1.2 Lymphocytes # Reactive Lymphocytes # 0.2 H Monocytes # Monocytes # (Manual) 1.4 H Eosinophils # Basophils # Basophils # (Manual) 0.2 H Nucleated Red Blood Cells # Platelet Estimate NORMAL Polychromasia 1+ Poikilocytosis 1+ Anisocytosis 2+ Microcytosis 1+ Spherocytes 1+ Target Cells 1+ Sodium Level 134 L Potassium Level 4.3 Chloride Level 101 Carbon Dioxide Level 25 Anion Gap 8 Blood Urea Nitrogen 6 L Creatinine 0.64 Est Glomerular Filtrat Rate mL/min > 60 Glucose Level 154 Calcium Level 8.4 Phosphorus Level 4.2 Magnesium Level 2.0 Urine Color STRAW Urine Clarity CLEAR Urine pH 7.0 Urine Specific [place] 1.001 L Urine Ketones NEGATIVE Urine Nitrite NEGATIVE Urine Bilirubin NEGATIVE Urine Urobilinogen NEGATIVE Urine Leukocyte Esterase TRACE A Urine Microscopic RBC 0 Urine Microscopic WBC 0 Urine Hemoglobin 2+ H Urine Glucose NEGATIVE Urine Total Protein NEGATIVE Medications Medications Current Medications Ondansetron HCl (Zofran Inj) 4 mg Q6H PRN IV NAUSEA AND/OR VOMITING Last administered on 11/08/18at 09:55; Admin Dose 4 MG; Start 11/06/18 at 01:30 Ipratropium [place] (Atrovent 0.02% (Neb)) 0.5 mg Q2H RESP THERAPY PRN NEB SHORTNESS OF BREATH; Start 11/06/18 at 01:30 Acetaminophen (Tylenol Liquid) 650 mg Q6H PRN PO PAIN LEVEL 1-3 OR FEVER; Start 11/06/18 at 01:30 Docusate Sodium (Colace) 100 mg Q12H PRN PO CONSTIPATION Last administered on 11/08/18 17:32; Admin Dose 100 MG; Start 11/06/18 at 01:30 Bisacodyl (Dulcolax) 5 mg DAILY PRN PO CONSTIPATION Last administered on 11/08/18 17:32; Admin Dose 5 MG; Start 11/06/18 at 01:30 Potassium Chloride/Dextrose/ Sod Cl 1,000 ml @ 100 mls/hr Q10H IV Last administered on 11/12/18 02:48; Admin Dose 100 MLS/HR; Start 11/06/18 at 07:00 Hydromorphone HCl (Dilaudid) 1 mg Q3H PRN IV BREAKTHROUGH PAIN Last administered on 11/11/18 16:32; Admin Dose 1 MG; Start 11/06/18 at 07:00 Hydromorphone HCl (Dilaudid) 4 mg Q4H PRN PO MODERATE PAIN LEVEL 4-6 Last administered on 11/11/18 13:17; Admin Dose 4 MG; Start 11/07/18 at 22:29 Famotidine (Pepcid) 20 mg BID PO Last administered on 11/12/18 08:29; Admin Dose 20 MG; Start 11/08/18 at 21:00 Apixaban (Eliquis) 5 mg BID PO Last administered on 11/12/18 08:29; Admin Dose 5 MG; Start 11/11/18 at 09:30 Lorazepam (Ativan) 1 mg Q6H PRN IV ANXIETY; Start 11/12/18 at 02:30 JUVE POWELL Nov 12, 2018 13:15
[2018-11-13] VITALS (11 sets, daily range): BP systolic 88–116; BP diastolic 49–59; PULSE 60–108; RESP 16–18
[2018-11-13] MEDS: HYDROmorphONE 1 MG/ML SYG IV PRN (03:56)
[2018-11-13] MEDS: D5W-0.45 NACL + KCL 20 MEQ 1,000 ML IV SCH ×4 (08:48→21:17)
[2018-11-13] MEDS: FAMOTIDINE 20 MG TAB PO SCH ×2 (09:11→21:11)
[2018-11-13] MEDS: APIXABAN 5 MG TABLET PO SCH ×2 (09:11→21:11)
--- NOTE | 2018-11-13 11:29 | PN ---
Date/Time of Note Date/Time of Note DATE: 11/13/18 TIME: 11:24 Assessment/Plan VTE Prophylaxis Risk score (from Nsg)>0 risk: 2 SCD applied (from Ns): No SCD contraindicated: other Pharmacological prophylaxis: apixaban Lines/Catheters IV Catheter Type (from Nrsg): Peripheral IV Urinary Cath still in place: Yes Reason Cath still needed: urinary retention Assessment/Plan Hospital Course S: Patient still has wound VAC in place, no fevers overnight, worked with PT yesterday. O: VS - see below PE: General: Well developed woman awake and alert, no distress HEENT: Atraumatic, normocephalic. Neck: Supple with full range of motion. No rigidity or meningismus Chest: Nontender Lungs: Clear to auscultation bilaterally no crackles rales or wheezing Heart: Sinus tachy, no murmurs Abdomen: Soft , nontender, nondistended. No guarding no rebound tenderness , Extremities: Right lower extremity: Wound VAC in place, slight positive DP pulse felt, warm. Left foot has + DP pulse and is warm. DATE OF OPERATION: 11/06/2018 PREOPERATIVE DIAGNOSES: Deep vein thrombosis right leg, arterial insufficiency right leg, compartment syndrome right leg, arterial insufficiency right leg, compartment syndrome right leg. POSTOPERATIVE DIAGNOSES: Deep vein thrombosis right leg, arterial insufficiency right leg, compartment syndrome right leg, arterial insufficiency right leg, compartment syndrome right leg. OPERATIVE PROCEDURE: Three compartment fasciotomy right calf, Norberto thrombectomy right posterior tibial artery. Assessment/Plan: 38 yo woman no major PMH presents with RLE acute limb ischemia plus DVT. # Right lower extremity DVT with ischemia- Patient was found to have a right lower extremity DVT on ultrasound as well as arterial occlusion on CT imaging, s/p three compartment fasciotomy right calf, Norberto thrombectomy right posteri or tibial artery by Dr. Poe (11/06) - postop day # 6. 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 -Continue Eliquis 5 mg twice daily as recommended by heme/onc team, monitor -Continue Dilaudid PO and IV for pain control, continue wound VAC -Follow-up recommendations from PT eval # Atrial septal defect- Patient has atrial septal defect as seen on echo with bubble 09/24/2018. -Appreciate cardiology consult, follow-up their further recommendations Dr. Melara to evaluate if pt should get this shunt closed? # Iron deficiency anemia- Ferritin deficient.-Patient received IV ferrlicit- Also postoperative bleeding, required PRBC transfusion 5 days ago -Hemoglobin presently stable, continue to monitor CBC daily # EULOGIO: Resolved likely secondary to hemodynamics, mild dehydration. -For now continue IV fluid hydration - Monitor renal function. Avoid nephrotoxic agents. # Prediabetes: Recent hemoglobin A1c 6.2, - encourage diet and lifestyle modification. - Monitor blood sugars while inpatient. # obesity: Encourage diet and exercise, patient has prediabetes please see #4. TSH was within normal values during previous admission. #Leukocytosis: Unclear source. No fevers. White blood cell count still on the low 20,000 range, UA shows trace positive leukocyte esterase from yesterday -We will start p.o. Levaquin and obtain ID consult for further investigation today Dispo: We will discuss with surgery team about the length of time needed with the wound VAC and she will need to have this set up for home use. She also needs insurance approval for her Eliquis anticoagulation medication which she will need to take for 3 months. Result Diagram: 11/13/18 0456 11/13/18 0456 Results 24hrs Laboratory Tests Test 11/12/18 11:54 11/13/18 04:56 Urine Color STRAW Urine Clarity CLEAR Urine pH 7.0 Urine Specific [place] 1.001 L Urine Ketones NEGATIVE Urine Nitrite NEGATIVE Urine Bilirubin NEGATIVE Urine Urobilinogen NEGATIVE Urine Leukocyte Esterase TRACE A Urine Microscopic RBC 0 Urine Microscopic WBC 0 Urine Hemoglobin 2+ H Urine Glucose NEGATIVE Urine Total Protein NEGATIVE White Blood Count 22.6 H Red Blood Count 3.62 L Hemoglobin 8.2 L Hematocrit 27.2 L Mean Corpuscular Volume 75.1 L Mean Corpuscular Hemoglobin 22.7 L Mean Corpuscular Hemoglobin Concent 30.1 L Red Cell Distribution Width 22.5 H Platelet Count 442 H Mean Platelet Volume 10.9 H Immature Granulocytes % 4.200 H Neutrophils % 75.0 Lymphocytes % 11.7 L Monocytes % 8.0 Eosinophils % 0.5 Basophils % 0.6 Nucleated Red Blood Cells % 0.1 H Immature Granulocytes # 0.950 H Neutrophils # 16.9 H Lymphocytes # 2.6 Monocytes # 1.8 H Eosinophils # 0.1 Basophils # 0.1 Nucleated Red Blood Cells # 0.0 Sodium Level 133 L Potassium Level 4.5 Chloride Level 103 Carbon Dioxide Level 27 Anion Gap 3 L Blood Urea Nitrogen 4 L Creatinine 0.61 Est Glomerular Filtrat Rate mL/min > 60 Glucose Level 136 Calcium Level 8.1 L Phosphorus Level 3.9 Magnesium Level 2.2 Exam/Review of Systems Exam Vitals Vital Signs Date Temp Pulse Resp B/P (MAP) Pulse Ox O2 O2 Flow FiO2 Time Delivery Rate 11/13/18 97.4 100 16 116/58 98 11:05 (77) 11/12/18 Room Air 05:00 11/10/18 2.0 20:00 Intake and Output 11/12/18 11/12/18 11/13/18 1515:00 23:00 07:00 IntakeIntake Total 900 ml OutputOutput Total 1500 ml BalanceBalance -600 ml Results Results 24hrs Laboratory Tests Test 11/12/18 11:54 11/13/18 04:56 Urine Color STRAW Urine Clarity CLEAR Urine pH 7.0 Urine Specific [place] 1.001 L Urine Ketones NEGATIVE Urine Nitrite NEGATIVE Urine Bilirubin NEGATIVE Urine Urobilinogen NEGATIVE Urine Leukocyte Esterase TRACE A Urine Microscopic RBC 0 Urine Microscopic WBC 0 Urine Hemoglobin 2+ H Urine Glucose NEGATIVE Urine Total Protein NEGATIVE White Blood Count 22.6 H Red Blood Count 3.62 L Hemoglobin 8.2 L Hematocrit 27.2 L Mean Corpuscular Volume 75.1 L Mean Corpuscular Hemoglobin 22.7 L Mean Corpuscular Hemoglobin Concent 30.1 L Red Cell Distribution Width 22.5 H Platelet Count 442 H Mean Platelet Volume 10.9 H Immature Granulocytes % 4.200 H Neutrophils % 75.0 Lymphocytes % 11.7 L Monocytes % 8.0 Eosinophils % 0.5 Basophils % 0.6 Nucleated Red Blood Cells % 0.1 H Immature Granulocytes # 0.950 H Neutrophils # 16.9 H Lymphocytes # 2.6 Monocytes # 1.8 H Eosinophils # 0.1 Basophils # 0.1 Nucleated Red Blood Cells # 0.0 Sodium Level 133 L Potassium Level 4.5 Chloride Level 103 Carbon Dioxide Level 27 Anion Gap 3 L Blood Urea Nitrogen 4 L Creatinine 0.61 Est Glomerular Filtrat Rate mL/min > 60 Glucose Level 136 Calcium Level 8.1 L Phosphorus Level 3.9 Magnesium Level 2.2 Medications Medication Current Medications Ondansetron HCl (Zofran Inj) 4 mg Q6H PRN IV NAUSEA AND/OR VOMITING Last admin istered on 11/08/18 09:55; Admin Dose 4 MG; Start 11/06/18 at 01:30 Ipratropium [place] (Atrovent 0.02% (Neb)) 0.5 mg Q2H RESP THERAPY PRN NEB SHORTNESS OF BREATH; Start 11/06/18 at 01:30 Acetaminophen (Tylenol Liquid) 650 mg Q6H PRN PO PAIN LEVEL 1-3 OR FEVER; Start 11/06/18 at 01:30 Docusate Sodium (Colace) 100 mg Q12H PRN PO CONSTIPATION Last administered on 11/08/18 17:32; Admin Dose 100 MG; Start 11/06/18 at 01:30 Bisacodyl (Dulcolax) 5 mg DAILY PRN PO CONSTIPATION Last administered on 11/08/18 17:32; Admin Dose 5 MG; Start 11/06/18 at 01:30 Potassium Chloride/Dextrose/ Sod Cl 1,000 ml @ 100 mls/hr Q10H IV Last administered on 11/12/18 23:30; Admin Dose 100 MLS/HR; Start 11/06/18 at 07:00 Hydromorphone HCl (Dilaudid) 1 mg Q3H PRN IV BREAKTHROUGH PAIN Last administered on 11/13/18 03:56; Admin Dose 1 MG; Start 11/06/18 at 07:00 Hydromorphone HCl (Dilaudid) 4 mg Q4H PRN PO MODERATE PAIN LEVEL 4-6 Last administered on 11/11/18 13:17; Admin Dose 4 MG; Start 11/07/18 at 22:29 Famotidine (Pepcid) 20 mg BID PO Last administered on 11/13/18 09:11; Admin Dose 20 MG; Start 11/08/18 at 21:00 Apixaban (Eliquis) 5 mg BID PO Last administered on 11/13/18 09:11; Admin Dose 5 MG; Start 11/11/18 at 09:30 Lorazepam (Ativan) 1 mg Q6H PRN IV ANXIETY; Start 11/12/18 at 02:30 ONEIL VOGEL Nov 13, 2018 11:29
--- NOTE | 2018-11-13 11:30 | CONS ---
Consult Date/Type/Reason Admit Date/Time Nov 06, 2018 at 01:33 Initial Consult Date Requesting Provider: JUVE SOLIMAN MD Date/Time of Note DATE: 11/13/18 TIME: 11:28 Subjective No acute events - pt better - con't to recover - HR improved ROS: No fever, no chills, no nausea, no vomiting, no diarrhea/constipation No recent weight changes No chest pain, no PND, no orthopnea - mild abd pain No dizziness, blurred vision No thirst, no heat or cold intolerance Objective Vitals Vital Signs Date Temp Pulse Resp B/P (MAP) Pulse Ox O2 O2 Flow FiO2 Time Delivery Rate 11/13/18 97.4 100 16 116/58 98 11:05 (77) 11/12/18 Room Air 05:00 11/10/18 2.0 20:00 Intake and Output 11/12/18 11/12/18 11/13/18 1515:00 23:00 07:00 IntakeIntake Total 900 ml OutputOutput Total 1500 ml BalanceBalance -600 ml Exam General: WN/WD/NAD, AOx 3 [place] HEENT: Unicetric/atraumatic/EOMI (does not follow commands) NECK: JVD elevated, no thyromegaly Lymph: no lymphadenopathy HEART: regular with no S3, II/ systolic murmur at apex LUNGS: Coarse sounds ABD: soft, NT, ND, +BS - post op : Intact Neuro: non focal SKIN: chronic changes EXT: trace edema Results/Medications Result Diagram: 11/13/18 0456 11/13/18 0456 Results 24 hrs Laboratory Tests Test 11/12/18 11:54 11/13/18 04:56 Urine Color STRAW Urine Clarity CLEAR Urine pH 7.0 Urine Specific [place] 1.001 L Urine Ketones NEGATIVE Urine Nitrite NEGATIVE Urine Bilirubin NEGATIVE Urine Urobilinogen NEGATIVE Urine Leukocyte Esterase TRACE A Urine Microscopic RBC 0 Urine Microscopic WBC 0 Urine Hemoglobin 2+ H Urine Glucose NEGATIVE Urine Total Protein NEGATIVE White Blood Count 22.6 H Red Blood Count 3.62 L Hemoglobin 8.2 L Hematocrit 27.2 L Mean Corpuscular Volume 75.1 L Mean Corpuscular Hemoglobin 22.7 L Mean Corpuscular Hemoglobin Concent 30.1 L Red Cell Distribution Width 22.5 H Platelet Count 442 H Mean Platelet Volume 10.9 H Immature Granulocytes % 4.200 H Neutrophils % 75.0 Lymphocytes % 11.7 L Monocytes % 8.0 Eosinophils % 0.5 Basophils % 0.6 Nucleated Red Blood Cells % 0.1 H Immature Granulocytes # 0.950 H Neutrophils # 16.9 H Lymphocytes # 2.6 Monocytes # 1.8 H Eosinophils # 0.1 Basophils # 0.1 Nucleated Red Blood Cells # 0.0 Sodium Level 133 L Potassium Level 4.5 Chloride Level 103 Carbon Dioxide Level 27 Anion Gap 3 L Blood Urea Nitrogen 4 L Creatinine 0.61 Est Glomerular Filtrat Rate mL/min > 60 Glucose Level 136 Calcium Level 8.1 L Phosphorus Level 3.9 Magnesium Level 2.2 Home Meds No Active Prescriptions or Reported Meds Medications Current Medications Ondansetron HCl (Zofran Inj) 4 mg Q6H PRN IV NAUSEA AND/OR VOMITING Last administered on 11/08/18 09:55; Admin Dose 4 MG; Start 11/06/18 at 01:30 Ipratropium [place] (Atrovent 0.02% (Neb)) 0.5 mg Q2H RESP THERAPY PRN NEB SHORTNESS OF BREATH; Start 11/06/18 at 01:30 Acetaminophen (Tylenol Liquid) 650 mg Q6H PRN PO PAIN LEVEL 1-3 OR FEVER; Start 11/06/18 at 01:30 Docusate Sodium (Colace) 100 mg Q12H PRN PO CONSTIPATION Last administered on 11/08/18 17:32; Admin Dose 100 MG; Start 11/06/18 at 01:30 Bisacodyl (Dulcolax) 5 mg DAILY PRN PO CONSTIPATION Last administered on 11/08/18 17:32; Admin Dose 5 MG; Start 11/06/18 at 01:30 Potassium Chloride/Dextrose/ Sod Cl 1,000 ml @ 100 mls/hr Q10H IV Last administered on 11/12/18 23:30; Admin Dose 100 MLS/HR; Start 11/06/18 at 07:00 Hydromorphone HCl (Dilaudid) 1 mg Q3H PRN IV BREAKTHROUGH PAIN Last administered on 11/13/18 03:56; Admin Dose 1 MG; Start 11/06/18 at 07:00 Hydromorphone HCl (Dilaudid) 4 mg Q4H PRN PO MODERATE PAIN LEVEL 4-6 Last administered on 3/28/19at 13:17; Admin Dose 4 MG; Start 11/07/18 at 22:29 Famotidine (Pepcid) 20 mg BID PO Last administered on 11/13/18at 09:11; Admin Dose 20 MG; Start 11/08/18 at 21:00 Apixaban (Eliquis) 5 mg BID PO Last administered on 11/13/18at 09:11; Admin Dose 5 MG; Start 11/11/18 at 09:30 Lorazepam (Ativan) 1 mg Q6H PRN IV ANXIETY; Start 11/12/18 at 02:30 Levofloxacin (Levaquin) 750 mg DAILY@06 NGT ; Start 11/13/18 at 11:30 Assessment/Plan Hospital Course (Demo Recall) 1. Acute arterial insufficiency.-s/p open thrpmbectomy - con't pain Rx, vascular team follows - stable now 2. Lower extremity deep venous thrombosis in the right lower extremity - on anti-coagulation, heparin gtt stopped. NO signs of bleeding. 3. Sinus tachycardia in the setting the patient just had surgery with significant lower extremity pain - con't pain Rx. 4. History of prior transient ischemic attack- stbale now. 5. History of possible right to left shunt at level of interatrial septum or atrial septal defect, most commonly patent foramen ovale - on anti-coagulation now. 6. Anemia, worsening - H/H checks - heparin gtt held now. 7. Leukocytosis. 8. Rhabdomyolysis. 9. Tachycardia-s tach mild to low 100's. Likley due to pain - better now. In sinus now. GALA ALDANA MD Nov 13, 2018 11:30
[2018-11-13] MEDS: LEVOFLOXACIN 750 MG TABLET NGT SCH (12:15)
[2018-11-13] MEDS: HYDROmorphONE 2 MG TAB PO PRN ×2 (12:18→21:11)
--- NOTE | 2018-11-13 14:27 | PN ---
Date/Time of Note Date/Time of Note DATE: 11/13/18 TIME: 14:26 Assessment/Plan Lines/Catheters IV Catheter Type (from Nrs): Saline Lock Mullen in Place (from Nrs): Yes Assessment/Plan Chief Complaint/Hosp Course WBC 22K. slightly more movement below knee. continue elquis and physical therapy Exam/Review of Systems Vital Signs Vitals Vital Signs Date Temp Pulse Resp B/P (MAP) Pulse Ox O2 O2 Flow FiO2 Time Delivery Rate 11/13/18 101 12:01 11/13/18 97.4 16 116/58 98 11:05 (77) 11/12/18 Room Air 05:00 11/10/18 2.0 20:00 Intake and Output 11/12/18 11/12/18 11/13/18 1515:00 23:00 07:00 IntakeIntake Total 900 ml OutputOutput Total 1500 ml BalanceBalance -600 ml Results Result Diagram: 11/13/18 0456 11/13/18 0456 YOLANDA GONZALEZ MD Nov 13, 2018 14:27
--- NOTE | 2018-11-13 20:55 | CONS ---
DATE OF ADMISSION: 11/06/2018 DATE OF CONSULTATION: 11/13/2018 TYPE OF CONSULTATION: Infectious Disease. REASON FOR CONSULTATION: Antibiotic management. HISTORY OF PRESENT ILLNESS: The patient is a 38-year-old female who presented to the emergency room with right leg swelling and pain for a number of days. The pain started one day prior to admission. She complained of aching pain that radiated down her right leg. The pain was 10/10. Her past probl ems include a history of colonoscopy and EGD in the past and microcytic anemia. On admission, her wh ite count was 19.6, H and H of 10.2 and 33.9, platelet count 359,000. BUN and creatinine 18/1.06, gl ucose random was 149. The patient was started on heparin. The patient was found to have an ischemic limb with possible DVT. The patient was thought to have deep vein thrombophlebitis of the right low er extremity with ischemia. Ultrasound showed right lower extremity deep venous thrombosis and ultra sound as well as occlusion on CT scan imaging was difficult to find a vascular surgeon by Dr. Poe was able to see the patient. The patient was taken to the OR for immediate intervention. She was fo und to have a compartmental syndrome of the right lower extremity. She had a 3-compartment fasciotom y, right cast and a thrombectomy of the right posterior tibial artery. She was placed on a heparin. White count on the was 17,000. The patient had a catheter placed for urinary retention. White count was up to 24,000 on the . Wound VAC was placed. Leukocytosis may be secondary to muscle necrosis. There is no other source identified. As noted, her white count was 24.3. Today she still has a catheter in and she has a wound VAC, white count is still 22.6, H and H of 8.2 and 27.2, plate let count 442,000. BUN and creatinine 4/0.61. Urinalysis showed trace positive leukocyte esterase. She was started on Levaquin. PAST MEDICAL HISTORY: Operations as outlined. FAMILY HISTORY: Noncontributory. PHYSICAL EXAMINATION: GENERAL: She is a well-developed, well-nourished female, awake, responsive, in no acute distress. VITAL SIGNS: Stable. She is afebrile. SKIN: Without generalized rash. HEENT: Within normal limits. NECK: Supple. LYMPH NODES: None palpable. CHEST: Decreased breath sounds at the bases. HEART: Without murmur or gallop. ABDOMEN: Soft, nontender, without organomegaly, splenomegaly or masses. EXTREMITIES: Right lower extremity with a wound VAC in place. She has some dorsalis pedis pulses fe lt. Left foot is warm without problems. ANCILLARY LABORATORY DATA: So far urine culture is negative. Blood cultures are negative. Chest x- ray shows no acute disease. IMPRESSION AND PLAN: The patient is currently on Levaquin. I believe that her white count is relate d to muscle necrosis rather than infection per se. She has a blood culture and urine culture pending . The urine so far is negative for now, will continue her on current therapy. I will dictate my fin dings to the hospitalist and to Dr. Poe and his team. Dictated By: ALEN GONSALEZ MD, JD/CAIN Conf#: [id number] DID#: [id number] CC: ALEN GONSALEZ MD; SHYAM WELLS MD; ONEIL VOGEL;*EndCC*
[2018-11-14] VITALS (11 sets, daily range): BP systolic 104–125; BP diastolic 55–74; PULSE 90–108; RESP 16–17
[2018-11-14] MEDS: HYDROmorphONE 1 MG/ML SYG IV PRN ×2 (03:53→13:57)
[2018-11-14] MEDS: LEVOFLOXACIN 750 MG TABLET NGT SCH (06:52)
[2018-11-14] MEDS: D5W-0.45 NACL + KCL 20 MEQ 1,000 ML IV SCH (07:23)
[2018-11-14] MEDS: APIXABAN 5 MG TABLET PO SCH ×2 (08:22→20:44)
[2018-11-14] MEDS: FAMOTIDINE 20 MG TAB PO SCH ×2 (08:22→20:44)
--- NOTE | 2018-11-14 09:27 | PN ---
Date/Time of Note Date/Time of Note DATE: 11/14/18 TIME: 09:25 Assessment/Plan VTE Prophylaxis Risk score (from Ns)>0 risk: 7 SCD applied (from Ns): No SCD contraindicated: other Pharmacological prophylaxis: apixaban Lines/Catheters IV [facility] Peripheral IV Urinary Cath still in place: Yes Reason Cath still needed: urinary retention Assessment/Plan Hospital Course S: Patient still has wound VAC in place, seen by ID, cardiology, and surgery teams yesterday. No acute events overnight. O: VS - see below PE: General: Well developed woman awake and alert, no distress HEENT: Atraumatic, normocephalic. Neck: Supple with full range of motion. No rigidity or meningismus Chest: Nontender Lungs: Clear to auscultation bilaterally no crackles rales or wheezing Heart: Sinus tachy, no murmurs Abdomen: Soft , nontender, nondistended. No guarding no rebound tenderness , Extremities: Right lower extremity: Wound VAC in place, slight positive DP pulse felt, warm. Left foot has + DP pulse and is warm. DATE OF OPERATION: 11/06/2018 PREOPERATIVE DIAGNOSES: Deep vein thrombosis right leg, arterial insufficiency right leg, compartment syndrome right leg, arterial insufficiency right leg, compartment syndrome right leg. POSTOPERATIVE DIAGNOSES: Deep vein thrombosis right leg, arterial insufficiency right leg, compartment syndrome right leg, arterial insufficiency right leg, compartment syndrome right leg. OPERATIVE PROCEDURE: Three compartment fasciotomy right calf, Norberto thrombectomy right posterior tibial artery. Assessment/Plan: 38 yo woman no major PMH presents with RLE acute limb ischemia plus DVT. # Right lower extremity DVT with ischemia- Patient was found to have a right lower extremity DVT on ultrasound as well as arterial occlusion on CT imaging, s/p three compartment fasciotomy right calf, Norberto thrombectomy right posterior tibial artery by Dr. Poe (11/06) - postop day # 7. 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 -Continue Eliquis 5 mg twice daily as recommended by heme/onc team, monitor -Continue Dilaudid PO and IV for pain control, continue wound VAC -Follow-up recommendations from PT eval # Atrial septal defect- Patient has atrial septal defect as seen on echo with bubble 09/24/2018. -Appreciate cardiology consult, follow-up their further recommendations Dr. Melara cardiology regarding shunt treatment # Iron deficiency anemia- Ferritin deficient.-Patient received IV ferrlicit- Also postoperative bleeding, required PRBC transfusion 6 days ago -Hemoglobin presently stable, continue to monitor CBC daily # EULOGIO: Resolved likely secondary to hemodynamics, mild dehydration. -For now continue IV fluid hydration - Monitor renal function. Avoid nephrotoxic agents. # Prediabetes: Recent hemoglobin A1c 6.2, - encourage diet and lifestyle modification. - Monitor blood sugars while inpatient. # obesity: Encourage diet and exercise, patient has prediabetes please see #4. TSH was within normal values during previous admission. #Leukocytosis: Unclear source. No fevers. White blood cell count down to 17,000 today UA shows trace positive leukocyte esterase, although infectious disease team stated patient's leukocytosis likely related to muscle necrosis rather than infection per se. -For now continue Levaquin, follow-up ID recommendation Dispo: wound VAC needs to be set up for home use. She also needs insurance approval for her Eliquis anticoagulation medication which she will need to take for 3 months-catering manager and home health care social worker working on this now. Result Diagram: 11/14/18 0501 11/14/18 0501 Results 24hrs Laboratory Tests Test 11/14/18 05:01 White Blood Count 17.5 #H Red Blood Count 3.30 L Hemoglobin 7.6 L Hematocrit 25.5 L Mean Corpuscular Volume 77.3 L Mean Corpuscular Hemoglobin 23.0 L Mean Corpuscular Hemoglobin Concent 29.8 L Red Cell Distribution Width 22.1 H Platelet Count 464 H Mean Platelet Volume 11.0 H Immature Granulocytes % 4.800 H Neutrophils % 72.1 Lymphocytes % 15.0 Monocytes % 6.4 Eosinophils % 1.1 Basophils % 0.6 Nucleated Red Blood Cells % 0.1 H Immature Granulocytes # 0.840 H Neutrophils # 12.6 H Lymphocytes # 2.6 Monocytes # 1.1 H Eosinophils # 0.2 Basophils # 0.1 Nucleated Red Blood Cells # 0.0 Sodium Level 135 Potassium Level 4.2 Chloride Level 101 Carbon Dioxide Level 27 Anion Gap 7 Blood Urea Nitrogen 4 L Creatinine 0.63 Est Glomerular Filtrat Rate mL/min > 60 Glucose Level 129 Calcium Level 8.0 L Phosphorus Level 4.1 Magnesium Level 2.1 Total Bilirubin 0.4 Direct Bilirubin 0.00 Indirect Bilirubin 0.4 Aspartate Amino Transf (AST/SGOT) 87 H Alanine Aminotransferase (ALT/SGPT) 43 Alkaline Phosphatase 104 Total Protein 5.8 L Albumin 2.6 L Globulin 3.20 Albumin/Globulin Ratio 0.81 Exam/Review of Systems Exam Vitals Vital Signs Date Temp Pulse Resp B/P (MAP) Pulse Ox O2 O2 Flow FiO2 Time Delivery Rate 11/14/18 90 08:03 11/14/18 98.1 16 109/55 98 08:02 (73) 11/12/18 Room Air 05:00 11/10/18 2.0 20:00 Intake and Output 11/13/18 11/13/18 11/14/18 1515:00 23:00 07:00 IntakeIntake Total 1000 ml 2050 ml 400 ml OutputOutput Total 1350 ml 2500 ml BalanceBalance 1000 ml 700 ml -2100 ml Results Results 24hrs Laboratory Tests Test 11/14/18 05:01 White Blood Count 17.5 #H Red Blood Count 3.30 L Hemoglobin 7.6 L Hematocrit 25.5 L Mean Corpuscular Volume 77.3 L Mean Corpuscular Hemoglobin 23.0 L Mean Corpuscular Hemoglobin Concent 29.8 L Red Cell Distribution Width 22.1 H Platelet Count 464 H Mean Platelet Volume 11.0 H Immature Granulocytes % 4.800 H Neutrophils % 72.1 Lymphocytes % 15.0 Monocytes % 6.4 Eosinophils % 1.1 Basophils % 0.6 Nucleated Red Blood Cells % 0.1 H Immature Granulocytes # 0.840 H Neutrophils # 12.6 H Lymphocytes # 2.6 Monocytes # 1.1 H Eosinophils # 0.2 Basophils # 0.1 Nucleated Red Blood Cells # 0.0 Sodium Level 135 Potassium Level 4.2 Chloride Level 101 Carbon Dioxide Level 27 Anion Gap 7 Blood Urea Nitrogen 4 L Creatinine 0.63 Est Glomerular Filtrat Rate mL/min > 60 Glucose Level 129 Calcium Level 8.0 L Phosphorus Level 4.1 Magnesium Level 2.1 Total Bilirubin 0.4 Direct Bilirubin 0.00 Indirect Bilirubin 0.4 Aspartate Amino Transf (AST/SGOT) 87 H Alanine Aminotransferase (ALT/SGPT) 43 Alkaline Phosphatase 104 Total Protein 5.8 L Albumin 2.6 L Globulin 3.20 Albumin/Globulin Ratio 0.81 Medications Medication Current Medications Ondansetron HCl (Zofran Inj) 4 mg Q6H PRN IV NAUSEA AND/OR VOMITING Last admin istered on 11/08/18 09:55; Admin Dose 4 MG; Start 11/06/18 at 01:30 Ipratropium [place] (Atrovent 0.02% (Neb)) 0.5 mg Q2H RESP THERAPY PRN NEB SHORTNESS OF BREATH; Start 11/06/18 at 01:30 Acetaminophen (Tylenol Liquid) 650 mg Q6H PRN PO PAIN LEVEL 1-3 OR FEVER; Start 11/06/18 at 01:30 Docusate Sodium (Colace) 100 mg Q12H PRN PO CONSTIPATION Last administered on 11/08/18 17:32; Admin Dose 100 MG; Start 11/06/18 at 01:30 Bisacodyl (Dulcolax) 5 mg DAILY PRN PO CONSTIPATION Last administered on 11/08/18 17:32; Admin Dose 5 MG; Start 11/06/18 at 01:30 Potassium Chloride/Dextrose/ Sod Cl 1,000 ml @ 100 mls/hr Q10H IV Last administered on 11/14/18 07:23; Admin Dose 100 MLS/HR; Start 11/06/18 at 07:00 Hydromorphone HCl (Dilaudid) 1 mg Q3H PRN IV BREAKTHROUGH PAIN Last administered on 11/14/18 03:53; Admin Dose 1 MG; Start 11/06/18 at 07:00 Hydromorphone HCl (Dilaudid) 4 mg Q4H PRN PO MODERATE PAIN LEVEL 4-6 Last administered on 11/13/18 21:11; Admin Dose 4 MG; Start 11/07/18 at 22:29 Famotidine (Pepcid) 20 mg BID PO Last administered on 11/14/18 08:22; Admin Dose 20 MG; Start 11/08/18 at 21:00 Apixaban (Eliquis) 5 mg BID PO Last administered on 11/14/18 08:22; Admin Dose 5 MG; Start 11/11/18 at 09:30 Lorazepam (Ativan) 1 mg Q6H PRN IV ANXIETY; Start 11/12/18 at 02:30 Levofloxacin (Levaquin) 750 mg DAILY@06 NGT Last administered on 3/31/19at 06:52; Admin Dose 750 MG; Start 11/13/18 at 11:30 ONEIL VOGEL Nov 14, 2018 09:27
--- NOTE | 2018-11-14 12:07 | PN ---
Date/Time of Note Date/Time of Note DATE: 11/14/18 TIME: 12:06 Assessment/Plan Lines/Catheters IV Catheter Type (from Nrs): Peripheral IV Mullen in Place (from Nrs): Yes Assessment/Plan Chief Complaint/Hosp Course WBC 17K. continue elquis and physical therapy. will see prn. follow up with Dr. Poe after discharge Exam/Review of Systems Vital Signs Vitals Vital Signs Date Temp Pulse Resp B/P (MAP) Pulse Ox O2 O2 Flow FiO2 Time Delivery Rate 11/14/18 98.6 106 16 112/55 100 11:13 (74) 11/12/18 Room Air 05:00 11/10/18 2.0 20:00 Intake and Output 11/13/18 11/13/18 11/14/18 1515:00 23:00 07:00 IntakeIntake Total 1000 ml 2050 ml 400 ml OutputOutput Total 1350 ml 2500 ml BalanceBalance 1000 ml 700 ml -2100 ml Results Result Diagram: 11/14/18 0501 11/14/18 0501 YOLANDA GONZALEZ MD Nov 14, 2018 12:07
--- NOTE | 2018-11-14 12:14 | CONS ---
Consult Date/Type/Reason Admit Date/Time Nov 06, 2018 at 01:33 Initial Consult Date Requesting Provider: JUVE SOLIMAN MD Date/Time of Note DATE: 11/14/18 TIME: 12:12 Subjective Pt doing well - seen by DR. Guthrie - no CP, leg oain controlled. On Eliquis now. ROS: No fever, no chills, no nausea, no vomiting, no diarrhea/constipation No recent weight changes No chest pain, no PND, no orthopnea No dizziness, blurred vision No thirst, no heat or cold intolerance Objective Vitals Vital Signs Date Temp Pulse Resp B/P (MAP) Pulse Ox O2 O2 Flow FiO2 Time Delivery Rate 11/14/18 103 12:10 11/14/18 98.6 16 112/55 100 11:13 (74) 11/12/18 Room Air 05:00 11/10/18 2.0 20:00 Intake and Output 11/13/18 11/13/18 11/14/18 1515:00 23:00 07:00 IntakeIntake Total 1000 ml 2050 ml 400 ml OutputOutput Total 1350 ml 2500 ml BalanceBalance 1000 ml 700 ml -2100 ml Exam General: WN/WD/NAD, AOx 3 HEENT: Unicetric/atraumatic/EOMI (follow commands) NECK: JVD elevated, no thyromegaly Lymph: no lymphadenopathy HEART: regular with no S3, II/ systolic murmur at apex LUNGS: Coarse sounds ABD: soft, NT, ND, +BS : Intact Neuro: non focal SKIN: chronic changes EXT: trace edema, post op Results/Medications Result Diagram: 11/14/18 0501 11/14/18 0501 Results 24 hrs Laboratory Tests Test 11/14/18 05:01 White Blood Count 17.5 #H Red Blood Count 3.30 L Hemoglobin 7.6 L Hematocrit 25.5 L Mean Corpuscular Volume 77.3 L Mean Corpuscular Hemoglobin 23.0 L Mean Corpuscular Hemoglobin Concent 29.8 L Red Cell Distribution Width 22.1 H Platelet Count 464 H Mean Platelet Volume 11.0 H Immature Granulocytes % 4.800 H Neutrophils % 72.1 Lymphocytes % 15.0 Monocytes % 6.4 Eosinophils % 1.1 Basophils % 0.6 Nucleated Red Blood Cells % 0.1 H Immature Granulocytes # 0.840 H Neutrophils # 12.6 H Lymphocytes # 2.6 Monocytes # 1.1 H Eosinophils # 0.2 Basophils # 0.1 Nucleated Red Blood Cells # 0.0 Sodium Level 135 Potassium Level 4.2 Chloride Level 101 Carbon Dioxide Level 27 Anion Gap 7 Blood Urea Nitrogen 4 L Creatinine 0.63 Est Glomerular Filtrat Rate mL/min > 60 Glucose Level 129 Calcium Level 8.0 L Phosphorus Level 4.1 Magnesium Level 2.1 Total Bilirubin 0.4 Direct Bilirubin 0.00 Indirect Bilirubin 0.4 Aspartate Amino Transf (AST/SGOT) 87 H Alanine Aminotransferase (ALT/SGPT) 43 Alkaline Phosphatase 104 Total Protein 5.8 L Albumin 2.6 L Globulin 3.20 Albumin/Globulin Ratio 0.81 Home Meds No Active Prescriptions or Reported Meds Medications Current Medications Ondansetron HCl (Zofran Inj) 4 mg Q6H PRN IV NAUSEA AND/OR VOMITING Last administered on 11/08/18 09:55; Admin Dose 4 MG; Start 11/06/18 at 01:30 Ipratropium [place] (Atrovent 0.02% (Neb)) 0.5 mg Q2H RESP THERAPY PRN NEB SHORTNESS OF BREATH; Start 11/06/18 at 01:30 Acetaminophen (Tylenol Liquid) 650 mg Q6H PRN PO PAIN LEVEL 1-3 OR FEVER; Start 11/06/18 at 01:30 Docusate Sodium (Colace) 100 mg Q12H PRN PO CONSTIPATION Last administered on 11/08/18 17:32; Admin Dose 100 MG; Start 11/06/18 at 01:30 Bisacodyl (Dulcolax) 5 mg DAILY PRN PO CONSTIPATION Last administered on 11/08/18 17:32; Admin Dose 5 MG; Start 11/06/18 at 01:30 Hydromorphone HCl (Dilaudid) 1 mg Q3H PRN IV BREAKTHROUGH PAIN Last administered on 11/14/18 03:53; Admin Dose 1 MG; Start 11/06/18 at 07:00 Hydromorphone HCl (Dilaudid) 4 mg Q4H PRN PO MODERATE PAIN LEVEL 4-6 Last administered on 11/13/18 21:11; Admin Dose 4 MG; Start 11/07/18 at 22:29 Famotidine (Pepcid) 20 mg BID PO Last administered on 11/14/18at 08:22; Admin Dose 20 MG; Start 11/08/18 at 21:00 Apixaban (Eliquis) 5 mg BID PO Last administered on 11/14/18at 08:22; Admin Dose 5 MG; Start 11/11/18 at 09:30 Lorazepam (Ativan) 1 mg Q6H PRN IV ANXIETY; Start 11/12/18 at 02:30 Levofloxacin (Levaquin) 750 mg DAILY@06 NGT Last administered on 11/14/18at 06:52; Admin Dose 750 MG; Start 11/13/18 at 11:30 Assessment/Plan Hospital Course (Demo Recall) 1. Acute arterial insufficiency.-s/p open thrpmbectomy - con't pain Rx, vascular team follows - stable now - seen by vascular team. 2. Lower extremity deep venous thrombosis in the right lower extremity - on anti-coagulation, heparin gtt stopped. NO signs of bleeding. On Eliquis now. 3. Sinus tachycardia in the setting the patient just had surgery with significant lower extremity pain - con't pain Rx. 4. History of prior transient ischemic attack- stbale now. 5. History of possible right to left shunt at level of interatrial septum or atrial septal defect, most commonly patent foramen ovale - on anti-coagulation now. 6. Anemia, worsening - H/H checks - Eliquis strated - H/H 7.6. Pt looks well. 7. Leukocytosis. 8. Rhabdomyolysis. 9. Tachycardia-s tach mild to low 100's. Likley due to pain - better now. In sinus now. GALA ALDANA MD Nov 14, 2018 12:14
--- NOTE | 2018-11-14 12:40 | CONS ---
[facility] Cathy Nunes Unit Number: [id number] Date of : 1980 Patient Status: Admitted Inpatient Attending Doctor: Juve Rose MD Edit: ELIA ZHANG DO on 11/16/18 @ 13:50 I saw the patient with the VP OF TECHNOLOGY and agreed with her plan. __ Assessment/Plan Assessment/Plan Assessment/Plan (Daily) A 38 yo F with no PMH with previous history of TIA vs conversion disorder ca using right sided paralysis that was resolving presented with unprovoked massive RLE DVT which caused compartment syndrome and decreased pulses s/p three compartment fasciotomy right calf, Norberto thrombectomy right posterior tibial artery and now on anticoagulation. # RLE unprovoked DVT # 11/06/18- Three compartment fasciotomy right calf, Norberto thrombectomy right posterior tibial artery. -Patient is on heparin gtt at this time but held due to anemia- Hgb 8.2 today -When patient safe to be placed on anticoagulation from primary and surgery standpoint, she can be placed on eliquis or xarelto -She needs a total of treatment for at least three months. -In terms of hypercoagulable workup, patient can have full workup done after 3 months in outpatient. Labs done now will have false positivity and skew results due to active surgery and clotting. -Patient may have had a state of decreased movement prior as she was hospitalized for paralysis that is still not very well explained. -No family history of clotting disorder makes it unlikely it is genetic but will check in outpatient setting. Patient seen in collaboration with Dr Zhang.Thank you to Dr. Resendiz. Please feel free to call our team for further questions. Consultation Date/Type/Reason Admit Date/Time Nov 06, 2018 at 01:33 Initial Consult Date 11/09/18 Type of Consult Oncology Reason for Consultation Anemia Requesting Provider: JUVE ROSE MD Date/Time of Note DATE: 11/14/18 TIME: 12:39 24 HR Interval Summary Free Text/Dictation Late entry- Patient is resting in bed; seems comfortable. Feels better No new events reported last night [facility] staff Detailed Summary Eyes: no complaints ENT: no complaints Respiratory: no complaints Cardiovascular: no complaints Gastrointestinal: no complaints Genitourinary: no complaints Musculoskeletal: other (Right lower extremity inscion ) Skin: no complaints Neurologic: no complaints Endocrine: no complaints Lymphatic: no complaints Psychological: nl mood/affect Immunologic: no complaints Exam/Review of Systems Exam Vitals Vital Signs Date Temp Pulse Resp B/P (MAP) Pulse Ox O2 O2 Flow FiO2 Time Delivery Rate 11/14/18 103 12:10 11/14/18 98.6 16 112/55 100 11:13 (74) 11/12/18 Room Air 05:00 11/10/18 2.0 20:00 Intake and Output 11/13/18 11/13/18 11/14/18 1414:59 22:59 06:59 IntakeIntake Total 1000 ml 2050 ml 400 ml OutputOutput Total 1350 ml 2500 ml BalanceBalance 1000 ml 700 ml -2100 ml Constitutional: alert, oriented, well developed Psych: nl mood/affect Head: atraumatic Eyes: EOMI, nl lids, nl sclera ENMT: nl external ears & nose Neck: non-tender Respiratory: clear to auscultation Cardiovascular: nl pulses, other (s1s2) Gastrointestinal: soft, non-tender Musculoskeletal: other (Right lower extremity:warm to touch, Wound VAC in long ce, DP pulse present ) Extremities: normal pulses, other ( SP Three compartment fasciotomy right calf, Norberto thrombectomy right posterior tibial artery.) Neurological: nl mental status, nl speech Skin: nl turgor Lymph: nontender Results Result Diagram: 11/14/18 0501 11/14/18 0501 Results 24hrs Laboratory Tests Test 11/14/18 05:01 White Blood Count 17.5 #H Red Blood Count 3.30 L Hemoglobin 7.6 L Hematocrit 25.5 L Mean Corpuscular Volume 77.3 L Mean Corpuscular Hemoglobin 23.0 L Mean Corpuscular Hemoglobin Concent 29.8 L Red Cell Distribution Width 22.1 H Platelet Count 464 H Mean Platelet Volume 11.0 H Immature Granulocytes % 4.800 H Neutrophils % 72.1 Lymphocytes % 15.0 Monocytes % 6.4 Eosinophils % 1.1 Basophils % 0.6 Nucleated Red Blood Cells % 0.1 H Immature Granulocytes # 0.840 H Neutrophils # 12.6 H Lymphocytes # 2.6 Monocytes # 1.1 H Eosinophils # 0.2 Basophils # 0.1 Nucleated Red Blood Cells # 0.0 Sodium Level 135 Potassium Level 4.2 Chloride Level 101 Carbon Dioxide Level 27 Anion Gap 7 Blood Urea Nitrogen 4 L Creatinine 0.63 Est Glomerular Filtrat Rate mL/min > 60 Glucose Level 129 Calcium Level 8.0 L Phosphorus Level 4.1 Magnesium Level 2.1 Total Bilirubin 0.4 Direct Bilirubin 0.00 Indirect Bilirubin 0.4 Aspartate Amino Transf (AST/SGOT) 87 H Alanine Aminotransferase (ALT/SGPT) 43 Alkaline Phosphatase 104 Total Protein 5.8 L Albumin 2.6 L Globulin 3.20 Albumin/Globulin Ratio 0.81 Medications Medication Current Medications Ondansetron HCl (Zofran Inj) 4 mg Q6H PRN IV NAUSEA AND/OR VOMITING Last administered on 11/08/18 09:55; Admin Dose 4 MG; Start 11/06/18 at 01:30 Ipratropium [place] (Atrovent 0.02% (Neb)) 0.5 mg Q2H RESP THERAPY PRN NEB SHORTNESS OF BREATH; Start 11/06/18 at 01:30 Acetaminophen (Tylenol Liquid) 650 mg Q6H PRN PO PAIN LEVEL 1-3 OR FEVER; Start 11/06/18 at 01:30 Docusate Sodium (Colace) 100 mg Q12H PRN PO CONSTIPATION Last administered on 11/08/18 17:32; Admin Dose 100 MG; Start 11/06/18 at 01:30 Bisacodyl (Dulcolax) 5 mg DAILY PRN PO CONSTIPATION Last administered on 11/08/18 17:32; Admin Dose 5 MG; Start 11/06/18 at 01:30 Hydromorphone HCl (Dilaudid) 1 mg Q3H PRN IV BREAKTHROUGH PAIN Last administered on 11/14/18 03:53; Admin Dose 1 MG; Start 11/06/18 at 07:00 Hydromorphone HCl (Dilaudid) 4 mg Q4H PRN PO MODERATE PAIN LEVEL 4-6 Last administered on 11/13/18at 21:11; Admin Dose 4 MG; Start 11/07/18 at 22:29 Famotidine (Pepcid) 20 mg BID PO Last administered on 11/14/18 08:22; Admin Dose 20 MG; Start 11/08/18 at 21:00 Apixaban (Eliquis) 5 mg BID PO Last administered on 11/14/18at 08:22; Admin Dose 5 MG; Start 11/11/18 at 09:30 Lorazepam (Ativan) 1 mg Q6H PRN IV ANXIETY; Start 11/12/18 at 02:30 Levofloxacin (Levaquin) 750 mg DAILY@06 NGT Last administered on 11/14/18 06:52; Admin Dose 750 MG; Start 11/13/18 at 11:30 CHIN FOLEY Nov 14, 2018 12:40
--- NOTE | 2018-11-14 12:41 | CONS ---
[facility] HCIS Consult Follow-up Patient Name: Cathy Nunes Unit Number: [id number] Date of : 1980 Patient Status: Admitted Inpatient Attending Doctor: Juve Rose MD Edit: ELIA ZHANG DO on 11/16/18 @ 13:53 I saw patient with POLYSOMNOGRAPHIC TECHNOLOGIST and agreed with her plan. Assessment/Plan Assessment/Plan Assessment/Plan (Daily) A 38 yo F with no PMH with previous history of TIA vs conversion disorder causing right sided paralysis that was resolving presented with unprovoked massive RLE DVT which caused compartment syndrome and decreased pulses s/p three compartment fasciotomy right calf, Norberto thrombectomy right posterior tibial artery and now on anticoagulation. # RLE unprovoked DVT - 11/06/18- Three compartment fasciotomy right calf, Norberto thrombectomy right posterior tibial artery. -Patient is on heparin gtt at this time but held due to anemia- Hgb 7.6 today -When patient safe to be placed on anticoagulation from primary and surgery standpoint, she can be placed on eliquis or xarelto -She needs a total of treatment for at least three months. -In terms of hypercoagulable workup, patient can have full workup done after 3 months in outpatient. Labs done now will have false positivity and skew results due to active surgery and clotting. -Patient may have had a state of decreased movement prior as she was hospitalized for paralysis that is still not very well explained. -No family history of clotting disorder makes it unlikely it is genetic but will check in outpatient setting. Patient seen in collaboration with Dr Zhang.Thank you to Dr. Resendiz. Please feel free to call our team for further questions. Consultation Date/Type/Reason Admit Date/Time Nov 06, 2018 at 01:33 Initial Consult Date 11/09/18 Type of Consult Oncology Reason for Consultation Anemia Requesting Provider: JUVE ROSE MD Date/Time of Note DATE: 11/14/18 TIME: 12:40 24 HR Interval Summary Free Text/Dictation Denies any complaints feels better no new issues reported last night dw staff Detailed Summary Eyes: no complaints ENT: no complaints Respiratory: no complaints Cardiovascular: no complaints Gastrointestinal: no complaints Genitourinary: no complaints Musculoskeletal: other (Right lower extremity surgical inscion) Skin: no complaints Neurologic: no complaints Endocrine: no complaints Lymphatic: no complaints Psychological: nl mood/affect Immunologic: no complaints Exam/Review of Systems Exam Vitals Vital Signs Date Temp Pulse Resp B/P (MAP) Pulse Ox O2 O2 Flow FiO2 Time Delivery Rate 11/14/18 103 12:10 11/14/18 98.6 16 112/55 100 11:13 (74) 11/12/18 Room Air 05:00 11/10/18 2.0 20:00 Intake and Output 11/13/18 11/13/18 11/14/18 1414:59 22:59 06:59 IntakeIntake Total 1000 ml 2050 ml 400 ml OutputOutput Total 1350 ml 2500 ml BalanceBalance 1000 ml 700 ml -2100 ml Constitutional: alert, oriented, well developed Psych: nl mood/affect Head: atraumatic Eyes: EOMI, nl lids, nl sclera ENMT: nl external ears & nose Neck: non-tender Respiratory: clear to auscultation (bilaterally) Cardiovascular: nl pulses, other (s1s2) Gastrointestinal: soft, non-tender Musculoskeletal: other (Right lower extremity:warm to touch, Wound VAC in place, DP pulse present ) Extremities: normal pulses Neurological: nl mental status, nl speech Skin: other (RLE - SURGICAL INSCION - intact) Results Result Diagram: 11/14/18 0501 11/14/18 0501 Results 24hrs Laboratory Tests Test 11/14/18 05:01 White Blood Count 17.5 #H Red Blood Count 3.30 L Hemoglobin 7.6 L Hematocrit 25.5 L Mean Corpuscular Volume 77.3 L Mean Corpuscular Hemoglobin 23.0 L Mean Corpuscular Hemoglobin Concent 29.8 L Red Cell Distribution Width 22.1 H Platelet Count 464 H Mean Platelet Volume 11.0 H Immature Granulocytes % 4.800 H Neutrophils % 72.1 Lymphocytes % 15.0 Monocytes % 6.4 Eosinophils % 1.1 Basophils % 0.6 Nucleated Red Blood Cells % 0.1 H Immature Granulocytes # 0.840 H Neutrophils # 12.6 H Lymphocytes # 2.6 Monocytes # 1.1 H Eosinophils # 0.2 Basophils # 0.1 Nucleated Red Blood Cells # 0.0 Sodium Level 135 Potassium Level 4.2 Chloride Level 101 Carbon Dioxide Level 27 Anion Gap 7 Blood Urea Nitrogen 4 L Creatinine 0.63 Est Glomerular Filtrat Rate mL/min > 60 Glucose Level 129 Calcium Level 8.0 L Phosphorus Level 4.1 Magnesium Level 2.1 Total Bilirubin 0.4 Direct Bilirubin 0.00 Indirect Bilirubin 0.4 Aspartate Amino Transf (AST/SGOT) 87 H Alanine Aminotransferase (ALT/SGPT) 43 Alkaline Phosphatase 104 Total Protein 5.8 L Albumin 2.6 L Globulin 3.20 Albumin/Globulin Ratio 0.81 Medications Medication Current Medications Ondansetron HCl (Zofran Inj) 4 mg Q6H PRN IV NAUSEA AND/OR VOMITING Last administered on 11/08/18 09:55; Admin Dose 4 MG; Start 11/06/18 at 01:30 Ipratropium [place] (Atrovent 0.02% (Neb)) 0.5 mg Q2H RESP THERAPY PRN NEB SHORTNESS OF BREATH; Start 11/06/18 at 01:30 Acetaminophen (Tylenol Liquid) 650 mg Q6H PRN PO PAIN LEVEL 1-3 OR FEVER; Start 11/06/18 at 01:30 Docusate Sodium (Colace) 100 mg Q12H PRN PO CONSTIPATION Last administered on 11/08/18 17:32; Admin Dose 100 MG; Start 11/06/18 at 01:30 Bisacodyl (Dulcolax) 5 mg DAILY PRN PO CONSTIPATION Last administered on 11/08/18 17:32; Admin Dose 5 MG; Start 11/06/18 at 01:30 Hydromorphone HCl (Dilaudid) 1 mg Q3H PRN IV BREAKTHROUGH PAIN Last admini stered on 11/14/18 03:53; Admin Dose 1 MG; Start 11/06/18 at 07:00 Hydromorphone HCl (Dilaudid) 4 mg Q4H PRN PO MODERATE PAIN LEVEL 4-6 Last administered on 11/13/18 21:11; Admin Dose 4 MG; Start 11/07/18 at 22:29 Famotidine (Pepcid) 20 mg BID PO Last administered on 11/14/18at 08:22; Admin Dose 20 MG; Start 11/08/18 at 21:00 Apixaban (Eliquis) 5 mg BID PO Last administered on 11/14/18at 08:22; Admin Dose 5 MG; Start 11/11/18 at 09:30 Lorazepam (Ativan) 1 mg Q6H PRN IV ANXIETY; Start 11/12/18 at 02:30 Levofloxacin (Levaquin) 750 mg DAILY@06 NGT Last administered on 11/14/18at 06:52; Admin Dose 750 MG; Start 11/13/18 at 11:30 CHIN FOLEY Nov 14, 2018 12:41
--- NOTE | 2018-11-14 14:32 | CONS ---
Assessment/Plan Assessment/Plan Hospital Course (Demo Recall) ID PROGRESS NOTE CURRENT ABX: DAY # => Levaquin + Doxy 11/14/18 0501 11/14/18 0501 24H INTERVAL SUMMARY * A/A/O -- Calm, cooperative, no fevers, VSS, WBC down today, NAD -- yet pain persisting REXT has PRN Dilaudid * U[place] speaking, able to understand some basic Kinyarwanda * RLEXT WOUND VAC in place [facility] * POD # 8 => 11/06/2018 Three compartment fasciotomy right calf, Norberto thrombectomy right posterior tibial artery. * Pre & POST-OP DIAGNOSES: Deep vein thrombosis right leg, arterial insufficiency right leg, compartment syndrome right leg, arterial insufficiency right leg, compartment syndrome right leg. DIAGNOSTIC IMAGING * 11/12/18 CXR: The heart and mediastinum are within normal limits. The lungs are clear. There is no pleural effusion or pneumothorax. * 11/05/18 RLEXT US: DVT within the right popliteal vein. Partial DVT in the right distal femoral vein and right posterior tibial vein. * 11/05/18 CT RLEXT: 1. No contrast opacified arteries are identified at the level of the ankle or foot.2. The posterior tibial artery is occluded at the level of the proximal calf, the peroneal artery at the mid flash level and the anterior tibial artery and the distal calf level.3. Smooth segmental narrowing of the distal popliteal artery. No hemodynamically significant stenosis or intraluminal filling defect.3. Normal appearing arterial structures proximal to the distal popliteal artery. MICRO/OTHER * 11/12/18 Urine Cx (-) -- UA trace leukEsterase * 11/12/18 BCx (-) * 11/06/18 BCx (-) PHYSICAL EXAMINATION: GENERAL: VSS, NAD HEENT: AT, NC, anicteric, NECK: Supple, CHEST: Equal chest rise bilaterally, without dyspnea on observation HEART: Pulse RRR ABDOMEN: Soft / NT EXTREMITIES: Warm, dry === RLEXT WOUND VAC in place SKIN: No rash, no diaphoresis ID ASSESSMENT 38 yo woman no major PMH presents with RLE acute limb ischemia plus DVT: 1. Systemic inflammatory response syndrome => IMPROVING * SIRS vs w/low grade temps 99.+ range, mild tachycardia, leukocytosis == DUE TO MUSCLE NECROSIS * Continue ABX coverage due to large open fasciotomy wound == at risk infection w/hyperglycemia 2. Right lower extremity DVT -> w/ischemic compartment syndrome -> Eliquis + Dilaudid onboard * s/p three compartment fasciotomy right calf, Norberto thrombectomy right posterior tibial artery by Dr. Poe (11/06) - postop day # 8. 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 3. Atrial septal defect- Patient has atrial septal defect as seen on echo with bubble 09/24/2018. 4. Iron deficiency anemia- Ferritin deficient.-Patient received IV ferrlicit- Also postoperative bleeding, required PRBC transfusion 6 days ago -Hemoglobin presently stable, continue to monitor CBC daily 5. EULOGIO=> Rhabdomyolysis combined with hemodynamics, mild dehydration => IMPROVING w/hydration * MUSCLE NECROSIS w/elevated CPK @ 95,000 + on admission * Avoid nephrotoxic agents. 6. Prediabetes: Recent hemoglobin A1c 6.2 == Consider adding low dose Metformin 500mg po once daily dose 7. Obesity: Encourage diet and exercise 8. Transaminitis, due to vasomotor hemodynamics? == RESOLVING ABX ALLERGIES: NONE to ABX INVASIVES: PIV CURRENT ABX: DAY # Levaquin + Doxycycline ID RECOMMENDATIONS/PLAN: 1. Continue Levaquin + add Doxycycline empiric hospital acquired MRSA prophylaxis 2. AVOID RENAL TOXIC ABX == recovering from RHABDO . Consultation Date/Type/Reason Admit Date/Time Nov 06, 2018 at 01:33 Initial Consult Date 11/09/18 Requesting Provider: JUVE SOLIMAN MD Date/Time of Note DATE: 11/14/18 TIME: 13:58 Exam/Review of Systems Exam Vitals Vital Signs Date Temp Pulse Resp B/P (MAP) Pulse Ox O2 O2 Flow FiO2 Time Delivery Rate 11/14/18 103 12:10 11/14/18 98.6 16 112/55 100 11:13 (74) 11/12/18 Room Air 05:00 11/10/18 2.0 20:00 Intake and Output 11/13/18 11/13/18 11/14/18 1515:00 23:00 07:00 IntakeIntake Total 1000 ml 2050 ml 400 ml OutputOutput Total 1350 ml 2500 ml BalanceBalance 1000 ml 700 ml -2100 ml Results Result Diagram: 11/14/18 0501 11/14/18 0501 Results 24hrs Laboratory Tests Test 11/14/18 05:01 White Blood Count 17.5 #H Red Blood Count 3.30 L Hemoglobin 7.6 L Hematocrit 25.5 L Mean Corpuscular Volume 77.3 L Mean Corpuscular Hemoglobin 23.0 L Mean Corpuscular Hemoglobin Concent 29.8 L Red Cell Distribution Width 22.1 H Platelet Count 464 H Mean Platelet Volume 11.0 H Immature Granulocytes % 4.800 H Neutrophils % 72.1 Lymphocytes % 15.0 Monocytes % 6.4 Eosinophils % 1.1 Basophils % 0.6 Nucleated Red Blood Cells % 0.1 H Immature Granulocytes # 0.840 H Neutrophils # 12.6 H Lymphocytes # 2.6 Monocytes # 1.1 H Eosinophils # 0.2 Basophils # 0.1 Nucleated Red Blood Cells # 0.0 Sodium Level 135 Potassium Level 4.2 Chloride Level 101 Carbon Dioxide Level 27 Anion Gap 7 Blood Urea Nitrogen 4 L Creatinine 0.63 Est Glomerular Filtrat Rate mL/min > 60 Glucose Level 129 Calcium Level 8.0 L Phosphorus Level 4.1 Magnesium Level 2.1 Total Bilirubin 0.4 Direct Bilirubin 0.00 Indirect Bilirubin 0.4 Aspartate Amino Transf (AST/SGOT) 87 H Alanine Aminotransferase (ALT/SGPT) 43 Alkaline Phosphatase 104 Total Protein 5.8 L Albumin 2.6 L Globulin 3.20 Albumin/Globulin Ratio 0.81 Medications Medication Current Medications Ondansetron HCl (Zofran Inj) 4 mg Q6H PRN IV NAUSEA AND/OR VOMITING Last administered on 11/08/18at 09:55; Admin Dose 4 MG; Start 11/06/18 at 01:30 Ipratropium [place] (Atrovent 0.02% (Neb)) 0.5 mg Q2H RESP THERAPY PRN NEB SH ORTNESS OF BREATH; Start 11/06/18 at 01:30 Acetaminophen (Tylenol Liquid) 650 mg Q6H PRN PO PAIN LEVEL 1-3 OR FEVER; Start 11/06/18 at 01:30 Docusate Sodium (Colace) 100 mg Q12H PRN PO CONSTIPATION Last administered on 11/08/18at 17:32; Admin Dose 100 MG; Start 11/06/18 at 01:30 Bisacodyl (Dulcolax) 5 mg DAILY PRN PO CONSTIPATION Last administered on 11/08/18 17:32; Admin Dose 5 MG; Start 11/06/18 at 01:30 Hydromorphone HCl (Dilaudid) 1 mg Q3H PRN IV BREAKTHROUGH PAIN Last administered on 11/14/18 13:57; Admin Dose 1 MG; Start 11/06/18 at 07:00 Hydromorphone HCl (Dilaudid) 4 mg Q4H PRN PO MODERATE PAIN LEVEL 4-6 Last administered on 11/13/18 21:11; Admin Dose 4 MG; Start 11/07/18 at 22:29 Famotidine (Pepcid) 20 mg BID PO Last administered on 11/14/18 08:22; Admin Dose 20 MG; Start 11/08/18 at 21:00 Apixaban (Eliquis) 5 mg BID PO Last administered on 11/14/18 08:22; Admin Dose 5 MG; Start 11/11/18 at 09:30 Lorazepam (Ativan) 1 mg Q6H PRN IV ANXIETY; Start 11/12/18 at 02:30 Levofloxacin (Levaquin) 750 mg DAILY@06 NGT Last administered on 11/14/18 06:52; Admin Dose 750 MG; Start 11/13/18 at 11:30 MITCH COLLIER NP Nov 14, 2018 14:08
[2018-11-14] MEDS: DOXYCYCLINE 100 MG TAB PO SCH (20:44)
[2018-11-14] MEDS: HYDROmorphONE 2 MG TAB PO PRN (20:44)
[2018-11-15] VITALS (11 sets, daily range): BP systolic 99–110; BP diastolic 52–76; PULSE 92–114; RESP 17–18
[2018-11-15] MEDS: ONDANSETRON 4 MG INJ IV PRN (01:58)
[2018-11-15] MEDS: HYDROmorphONE 1 MG/ML SYG IV PRN (01:58)
[2018-11-15] MEDS: LEVOFLOXACIN 750 MG TABLET NGT SCH (06:04)
[2018-11-15] MEDS: HYDROmorphONE 2 MG TAB PO PRN ×2 (06:04→12:42)
[2018-11-15] MEDS: FAMOTIDINE 20 MG TAB PO SCH ×2 (08:17→21:27)
[2018-11-15] MEDS: APIXABAN 5 MG TABLET PO SCH ×2 (08:17→21:27)
[2018-11-15] MEDS: DOXYCYCLINE 100 MG TAB PO SCH (08:17)
--- NOTE | 2018-11-15 10:26 | CONS ---
Assessment/Plan Assessment/Plan Hospital Course (Demo Recall) 38 yo F with no PMH with previous history of TIA vs conversion disorder causing right sided paralysis that was resolving presented with unprovoked massive RLE DVT which caused compartment syndrome and decreased pulses s/p three compartment fasciotomy right calf, Norberto thrombectomy right posterior tibial artery and now on anticoagulation. # RLE unprovoked DVT -Patient is now on eliquis -She needs a total of treatment for at least three months of anticoagulation -In terms of hypercoagulable workup, patient can have full workup done after 3 months in outpatient. Labs done now will have false positivity and skew results due to active surgery and clotting. -Patient may have had a state of decreased movement prior as she was hospitalized for paralysis that is still not very well explained. -No family history of clotting disorder makes it unlikely it is genetic but will check in outpatient setting. Consultation Date/Type/Reason Admit Date/Time Nov 06, 2018 at 01:33 Initial Consult Date 11/09/18 Type of Consult hematology Reason for Consultation coagulopathy Requesting Provider: JUVE SOLIMAN MD Date/Time of Note DATE: 11/15/18 TIME: 10:23 24 HR Interval Summary Free Text/Dictation pt continues on antibiotics Exam/Review of Systems Exam Vitals Vital Signs Date Temp Pulse Resp B/P (MAP) Pulse Ox O2 O2 Flow FiO2 Time Delivery Rate 11/15/18 114 08:00 11/15/18 98.4 18 101/55 99 Room Air 07:13 (70) Intake and Output 11/14/18 11/14/18 11/15/18 1414:59 22:59 06:59 IntakeIntake Total 1000 ml 1400 ml OutputOutput Total 1900 ml 250 ml BalanceBalance 1000 ml -500 ml -250 ml Constitutional: alert, oriented Psych: no complaints Head: normocephalic Eyes: nl conjunctiva ENMT: nl external ears & nose Neck: supple Respiratory: clear to auscultation Cardiovascular: regular rate and rhythm Gastrointestinal: soft Musculoskeletal: other (RL with wound vac in place) Results Result Diagram: 11/15/18 0544 11/15/18 0544 Results 24hrs Laboratory Tests Test 11/15/18 05:44 White Blood Count 16.9 H Red Blood Count 3.37 L Hemoglobin 7.8 L Hematocrit 25.6 L Mean Corpuscular Volume 76.0 L Mean Corpuscular Hemoglobin 23.1 L Mean Corpuscular Hemoglobin Concent 30.5 L Red Cell Distribution Width 22.4 H Platelet Count 552 H Mean Platelet Volume 10.6 H Immature Granulocytes % 4.800 H Neutrophils % 63.9 Lymphocytes % 22.4 Monocytes % 7.0 Eosinophils % 1.1 Basophils % 0.8 Nucleated Red Blood Cells % 0.1 H Immature Granulocytes # 0.810 H Neutrophils # 10.8 H Lymphocytes # 3.8 H Monocytes # 1.2 H Eosinophils # 0.2 Basophils # 0.1 Nucleated Red Blood Cells # 0.0 Sodium Level 135 Potassium Level 3.8 Chloride Level 102 Carbon Dioxide Level 28 Anion Gap 5 Blood Urea Nitrogen 7 Creatinine 0.66 Est Glomerular Filtrat Rate mL/min > 60 Glucose Level 120 Calcium Level 8.3 L Medications Medication Current Medications Ondansetron HCl (Zofran Inj) 4 mg Q6H PRN IV NAUSEA AND/OR VOMITING Last administered on 11/15/18 01:58; Admin Dose 4 MG; Start 11/06/18 at 01:30 Ipratropium [place] (Atrovent 0.02% (Neb)) 0.5 mg Q2H RESP THERAPY PRN NEB SHORTNESS OF BREATH; Start 11/06/18 at 01:30 Acetaminophen (Tylenol Liquid) 650 mg Q6H PRN PO PAIN LEVEL 1-3 OR FEVER; Start 11/06/18 at 01:30 Docusate Sodium (Colace) 100 mg Q12H PRN PO CONSTIPATION Last administered on 11/08/18 17:32; Admin Dose 100 MG; Start 11/06/18 at 01:30 Bisacodyl (Dulcolax) 5 mg DAILY PRN PO CONSTIPATION Last administered on 11/08/18 17:32; Admin Dose 5 MG; Start 11/06/18 at 01:30 Hydromorphone HCl (Dilaudid) 1 mg Q3H PRN IV BREAKTHROUGH PAIN Last administered on 11/15/18 01:58; Admin Dose 1 MG; Start 11/06/18 at 07:00 Hydromorphone HCl (Dilaudid) 4 mg Q4H PRN PO MODERATE PAIN LEVEL 4-6 Last administered on 11/15/18at 06:04; Admin Dose 4 MG; Start 11/07/18 at 22:29 Famotidine (Pepcid) 20 mg BID PO Last administered on 11/15/18 08:17; Admin Dose 20 MG; Start 11/08/18 at 21:00 Apixaban (Eliquis) 5 mg BID PO Last administered on 11/15/18at 08:17; Admin Dose 5 MG; Start 11/11/18 at 09:30 Lorazepam (Ativan) 1 mg Q6H PRN IV ANXIETY; Start 11/12/18 at 02:30 Levofloxacin (Levaquin) 750 mg DAILY@06 NGT Last administered on 11/15/18at 06:04; Admin Dose 750 MG; Start 11/13/18 at 11:30 Doxycycline Hyclate (Vibramycin) 100 mg DAILY PO Last administered on 11/15/18at 08:17; Admin Dose 100 MG; Start 11/14/18 at 21:00 JENARO THOMAS M.D. Nov 15, 2018 10:26
--- NOTE | 2018-11-15 11:30 | CONS ---
Assessment/Plan Assessment/Plan Hospital Course (Demo Recall) IMPRESSION: 1. Acute arterial insufficiency.-s/p open thrombectomy 2. Lower extremity deep venous thrombosis in the right lower extremity. 3. Sinus tachycardia in the setting the patient just had surgery with significant lower extremity pain. 4. History of prior transient ischemic attack. 5. History of possible right to left shunt at level of interatrial septum or atrial septal defect, most commonly patent foramen ovale. 6. Anemia, worsening. 7. Leukocytosis. 8. Rhabdomyolysis. 9. Tachycardia-s tach mild to low 100's. Likely due to pain Recc: -Tele -Pain control -Continue anticoagulation -local wound care -would evluate interatrial septum with LUÍS at later date when has recovered from current surgery Consultation Date/Type/Reason Admit Date/Time Nov 06, 2018 at 01:33 Initial Consult Date 01/07/19 Type of Consult Cardiology Reason for Consultation PFO/ASD Requesting Provider: JUVE SOLIMAN MD Date/Time of Note DATE: 11/15/18 TIME: 11:29 Exam/Review of Systems Vital Signs Vitals Vital Signs Date Temp Pulse Resp B/P (MAP) Pulse Ox O2 O2 Flow FiO2 Time Delivery Rate 11/15/18 114 08:00 11/15/18 98.4 18 101/55 99 Room Air 07:13 (70) Intake and Output 11/14/18 11/14/18 11/15/18 1515:00 23:00 07:00 IntakeIntake Total 1000 ml 1400 ml OutputOutput Total 1900 ml 250 ml BalanceBalance 1000 ml -500 ml -250 ml Exam Exam Review of Systems: CONSTITUTIONAL: No fevers, chills. PULMONARY: No sob CARDIOVASCULAR: No chest pain/palpitations GASTROINTESTINAL: No nausea/vomiting. GENITOURINARY: No hematuria/dysuria. MUSCULOSKELETAL: No myagias/arthalgias. PSYCHIATRIC: The patient denies depression. NEUROLOGIC: No weakness Constitutional: alert Psych: no complaints Head: normocephalic ENMT: mucosa pink and moist Neck: supple, jvd (9 cm water) Respiratory: diminished breath sounds Cardiovascular: regular rate and rhythm Gastrointestinal: soft, non-tender Musculoskeletal: muscle tone (normal) Extremities: edema (none) Neurological: other (No focal deficits) Labs Result Diagram: 11/15/18 0544 4/1/19 0544 Results 24hrs Laboratory Tests Test 11/15/18 05:44 White Blood Count 16.9 H Red Blood Count 3.37 L Hemoglobin 7.8 L Hematocrit 25.6 L Mean Corpuscular Volume 76.0 L Mean Corpuscular Hemoglobin 23.1 L Mean Corpuscular Hemoglobin Concent 30.5 L Red Cell Distribution Width 22.4 H Platelet Count 552 H Mean Platelet Volume 10.6 H Immature Granulocytes % 4.800 H Neutrophils % 63.9 Lymphocytes % 22.4 Monocytes % 7.0 Eosinophils % 1.1 Basophils % 0.8 Nucleated Red Blood Cells % 0.1 H Immature Granulocytes # 0.810 H Neutrophils # 10.8 H Lymphocytes # 3.8 H Monocytes # 1.2 H Eosinophils # 0.2 Basophils # 0.1 Nucleated Red Blood Cells # 0.0 Sodium Level 135 Potassium Level 3.8 Chloride Level 102 Carbon Dioxide Level 28 Anion Gap 5 Blood Urea Nitrogen 7 Creatinine 0.66 Est Glomerular Filtrat Rate mL/min > 60 Glucose Level 120 Calcium Level 8.3 L Medications Medications Current Medications Ondansetron HCl (Zofran Inj) 4 mg Q6H PRN IV NAUSEA AND/OR VOMITING Last administered on 11/15/18 01:58; Admin Dose 4 MG; Start 11/06/18 at 01:30 Ipratropium [place] (Atrovent 0.02% (Neb)) 0.5 mg Q2H RESP THERAPY PRN NEB SHORTNESS OF BREATH; Start 11/06/18 at 01:30 Acetaminophen (Tylenol Liquid) 650 mg Q6H PRN PO PAIN LEVEL 1-3 OR FEVER; Start 11/06/18 at 01:30 Docusate Sodium (Colace) 100 mg Q12H PRN PO CONSTIPATION Last administered on 11/08/18 17:32; Admin Dose 100 MG; Start 11/06/18 at 01:30 Bisacodyl (Dulcolax) 5 mg DAILY PRN PO CONSTIPATION Last administered on 11/08/18 17:32; Admin Dose 5 MG; Start 11/06/18 at 01:30 Hydromorphone HCl (Dilaudid) 1 mg Q3H PRN IV BREAKTHROUGH PAIN Last administ ered on 11/15/18 01:58; Admin Dose 1 MG; Start 11/06/18 at 07:00 Hydromorphone HCl (Dilaudid) 4 mg Q4H PRN PO MODERATE PAIN LEVEL 4-6 Last administered on 11/15/18 06:04; Admin Dose 4 MG; Start 11/07/18 at 22:29 Famotidine (Pepcid) 20 mg BID PO Last administered on 11/15/18 08:17; Admin Dose 20 MG; Start 11/08/18 at 21:00 Apixaban (Eliquis) 5 mg BID PO Last administered on 11/15/18 08:17; Admin Dose 5 MG; Start 11/11/18 at 09:30 Lorazepam (Ativan) 1 mg Q6H PRN IV ANXIETY; Start 11/12/18 at 02:30 Levofloxacin (Levaquin) 750 mg DAILY@06 NGT Last administered on 11/15/18 06:04; Admin Dose 750 MG; Start 11/13/18 at 11:30 Doxycycline Hyclate (Vibramycin) 100 mg DAILY PO Last administered on 11/15/18 08:17; Admin Dose 100 MG; Start 11/14/18 at 21:00 JUVE POWELL Nov 15, 2018 11:30
--- NOTE | 2018-11-15 14:28 | CONS ---
Assessment/Plan Assessment/Plan Hospital Course (Demo Recall) Patient is alert feels good denies pain, no fevers overnight. WBC 16.9 H&H 7.8 and 25.6 platelets 553 neutrophils 63.9 BUN 7 creatinine 0.66 Antimicrobials: Levofloxacin doxycycline Physical examination: Obese well-developed middle-aged woman who is alert in no distress. Head atraumatic normocephalic. Neck is supple. Chest rise symmetrical breath sounds diminished bases. Heart: S1-S2. Abdomen soft bowel sounds present. Extremities without cyanosis. Right lower extremity has a wound VAC Assessment: 1. Systemic inflammatory response syndrome with ongoing leukocytosis, improving 2. Right lower extremity DVT with ischemic compartment syndrome, status post fasciotomy of the right calf 11/06/[address] Poe 3. Anemia 4. Obesity 5. Atrial septal defect Plan: Patient remains stable, continue present care, cardiology recommendations noted, eventual LUÍS Consultation Date/Type/Reason Admit Date/Time Nov 06, 2018 at 01:33 Initial Consult Date 11/09/18 Type of Consult id Requesting Provider: JUVE SOLIMAN MD Date/Time of Note DATE: 11/15/18 TIME: 14:28 Exam/Review of Systems Exam Vitals Vital Signs Date Temp Pulse Resp B/P (MAP) Pulse Ox O2 O2 Flow FiO2 Time Delivery Rate 11/15/18 96 12:00 11/15/18 98.1 18 99/57 (71) 98 Room Air 11:33 Intake and Output 11/14/18 11/14/18 11/15/18 1515:00 23:00 07:00 IntakeIntake Total 1000 ml 1400 ml OutputOutput Total 1900 ml 250 ml BalanceBalance 1000 ml -500 ml -250 ml Results Result Diagram: 11/15/18 0544 11/15/18 0544 Results 24hrs Laboratory Tests Test 11/15/18 05:44 White Blood Count 16.9 H Red Blood Count 3.37 L Hemoglobin 7.8 L Hematocrit 25.6 L Mean Corpuscular Volume 76.0 L Mean Corpuscular Hemoglobin 23.1 L Mean Corpuscular Hemoglobin Concent 30.5 L Red Cell Distribution Width 22.4 H Platelet Count 552 H Mean Platelet Volume 10.6 H Immature Granulocytes % 4.800 H Neutrophils % 63.9 Lymphocytes % 22.4 Monocytes % 7.0 Eosinophils % 1.1 Basophils % 0.8 Nucleated Red Blood Cells % 0.1 H Immature Granulocytes # 0.810 H Neutrophils # 10.8 H Lymphocytes # 3.8 H Monocytes # 1.2 H Eosinophils # 0.2 Basophils # 0.1 Nucleated Red Blood Cells # 0.0 Sodium Level 135 Potassium Level 3.8 Chloride Level 102 Carbon Dioxide Level 28 Anion Gap 5 Blood Urea Nitrogen 7 Creatinine 0.66 Est Glomerular Filtrat Rate mL/min > 60 Glucose Level 120 Calcium Level 8.3 L Medications Medication Current Medications Ondansetron HCl (Zofran Inj) 4 mg Q6H PRN IV NAUSEA AND/OR VOMITING Last administered on 11/15/18 01:58; Admin Dose 4 MG; Start 11/06/18 at 01:30 Ipratropium [place] (Atrovent 0.02% (Neb)) 0.5 mg Q2H RESP THERAPY PRN NEB SHORTNESS OF BREATH; Start 11/06/18 at 01:30 Acetaminophen (Tylenol Liquid) 650 mg Q6H PRN PO PAIN LEVEL 1-3 OR FEVER; Start 11/06/18 at 01:30 Docusate Sodium (Colace) 100 mg Q12H PRN PO CONSTIPATION Last administered on 11/08/18 17:32; Admin Dose 100 MG; Start 11/06/18 at 01:30 Bisacodyl (Dulcolax) 5 mg DAILY PRN PO CONSTIPATION Last administered on 11/08/18 17:32; Admin Dose 5 MG; Start 11/06/18 at 01:30 Hydromorphone HCl (Dilaudid) 4 mg Q4H PRN PO MODERATE PAIN LEVEL 4-6 Last administered on 11/15/18at 12:42; Admin Dose 4 MG; Start 11/07/18 at 22:29 Famotidine (Pepcid) 20 mg BID PO Last administered on 11/15/18 08:17; Admin Dose 20 MG; Start 11/08/18 at 21:00 Apixaban (Eliquis) 5 mg BID PO Last administered on 11/15/18 08:17; Admin Dose 5 MG; Start 11/11/18 at 09:30 Lorazepam (Ativan) 1 mg Q6H PRN IV ANXIETY; Start 11/12/18 at 02:30 Levofloxacin (Levaquin) 750 mg DAILY@06 NGT Last administered on 11/15/18at 06:04; Admin Dose 750 MG; Start 11/13/18 at 11:30 Doxycycline Hyclate (Vibramycin) 100 mg DAILY PO Last administered on 11/15/18at 08:17; Admin Dose 100 MG; Start 11/14/18 at 21:00 Hydromorphone HCl (Dilaudid) 2 mg Q4H PRN IV with dressing changes; Start 11/15/18 at 14:30 TIFFANIE DEVINE [employer]ESS[employer]PER[employer]OR Nov 15, 2018 14:28
[2018-11-15] MEDS: HYDROmorphONE 2 MG/ML SYG IV PRN ×2 (14:29→21:28)
--- NOTE | 2018-11-15 17:51 | PN ---
Date/Time of Note Date/Time of Note DATE: 11/15/18 TIME: 17:49 Assessment/Plan VTE Prophylaxis Risk score (from Nsg)>0 risk: 6 SCD applied (from Nsg): No SCD contraindicated: other (LE surgery) Pharmacological prophylaxis: apixaban Lines/Catheters IV Catheter Type (from Nrsg): Saline Lock Urinary Cath still in place: Yes Reason Cath still needed: other (indicate) (not needed) Assessment/Plan Assessment/Plan 38 yo woman no major PMH presents with RLE acute limb ischemia plus DVT. # Right lower extremity DVT with ischemia - Patient was found to have a right lower extremity DVT on ultrasound as well as arterial occlusion on CT imaging, s/p three compartment fasciotomy right calf, Norberto thrombectomy right posterior tibial artery by Dr. Poe (11/06). 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 -Continue Eliquis 5 mg twice daily as recommended by heme/onc team, monitor -Continue Dilaudid PO and IV for pain control, continue wound VAC -Follow-up recommendations from PT evrichelle # Atrial septal defect- Patient has atrial septal defect as seen on echo with bubble 09/24/2018. -Appreciate cardiology consult, follow-up their further recommendations Dr. Melara - Patient will likely need prolonged anticoagulation for DVT anyway. So no shunt closure needed anytime soon. # Iron deficiency anemia- Ferritin deficient.-Patient received IV ferrlicit- Also postoperative bleeding, required PRBC transfusion 6 days ago -Hemoglobin presently stable, continue to monitor CBC daily # EULOGIO: Resolved likely secondary to hemodynamics, mild dehydration. -For now continue IV fluid hydration - Monitor renal function. Avoid nephrotoxic agents. # Prediabetes: Recent hemoglobin A1c 6.2, - encourage diet and lifestyle modification. - Monitor blood sugars while inpatient. # obesity: Encourage diet and exercise, patient has prediabetes please see #4. TSH was within normal values during previous admission. #Leukocytosis: Unclear source. No fevers. White blood cell count down to 17,000 today UA shows trace positive leukocyte esterase, although infectious disease team stated patient's leukocytosis likely related to muscle necrosis rather than infection per se. -For now continue Levaquin, follow-up ID recommendation Dispo: wound VAC needs to be set up for home use. 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 Result Diagram: 11/15/18 0544 11/15/18 0544 Subjective 24 Hr Interval Summary Free Text/Dictation No acute overnight events. Patient feeling well. Still has severe pain with dressing changes requiring IV dilaudid. Exam/Review of Systems Exam Vitals Vital Signs Date Temp Pulse Resp B/P (MAP) Pulse Ox O2 O2 Flow FiO2 Time Delivery Rate 11/15/18 103 16:00 11/15/18 98.1 18 101/55 100 Room Air 15:08 (70) Intake and Output 11/14/18 11/14/18 11/15/18 1515:00 23:00 07:00 IntakeIntake Total 1000 ml 1400 ml OutputOutput Total 1900 ml 250 ml BalanceBalance 1000 ml -500 ml -250 ml Exam General: Well developed woman awake and alert, no distress HEENT: Atraumatic, normocephalic. Neck: Supple with full range of motion. No rigidity or meningismus Chest: Nontender Lungs: Clear to auscultation bilaterally no crackles rales or wheezing Heart: Sinus tachy, no murmurs Abdomen: Soft , nontender, nondistended. No guarding no rebound tenderness , Extremities: Right lower extremity: Wound VAC in place, slight positive DP pulse felt, warm. Left foot has + DP pulse and is warm. Results Results 24hrs Laboratory Tests Test 11/15/18 05:44 White Blood Count 16.9 H Red Blood Count 3.37 L Hemoglobin 7.8 L Hematocrit 25.6 L Mean Corpuscular Volume 76.0 L Mean Corpuscular Hemoglobin 23.1 L Mean Corpuscular Hemoglobin Concent 30.5 L Red Cell Distribution Width 22.4 H Platelet Count 552 H Mean Platelet Volume 10.6 H Immature Granulocytes % 4.800 H Neutrophils % 63.9 Lymphocytes % 22.4 Monocytes % 7.0 Eosinophils % 1.1 Basophils % 0.8 Nucleated Red Blood Cells % 0.1 H Immature Granulocytes # 0.810 H Neutrophils # 10.8 H Lymphocytes # 3.8 H Monocytes # 1.2 H Eosinophils # 0.2 Basophils # 0.1 Nucleated Red Blood Cells # 0.0 Sodium Level 135 Potassium Level 3.8 Chloride Level 102 Carbon Dioxide Level 28 Anion Gap 5 Blood Urea Nitrogen 7 Creatinine 0.66 Est Glomerular Filtrat Rate mL/min > 60 Glucose Level 120 Calcium Level 8.3 L Medications Medication Current Medications Ondansetron HCl (Zofran Inj) 4 mg Q6H PRN IV NAUSEA AND/OR VOMITING Last administered on 11/15/18 01:58; Admin Dose 4 MG; Start 11/06/18 at 01:30 Ipratropium [place] (Atrovent 0.02% (Neb)) 0.5 mg Q2H RESP THERAPY PRN NEB S HORTNESS OF BREATH; Start 11/06/18 at 01:30 Acetaminophen (Tylenol Liquid) 650 mg Q6H PRN PO PAIN LEVEL 1-3 OR FEVER; Start 11/06/18 at 01:30 Docusate Sodium (Colace) 100 mg Q12H PRN PO CONSTIPATION Last administered on 11/08/18 17:32; Admin Dose 100 MG; Start 11/06/18 at 01:30 Bisacodyl (Dulcolax) 5 mg DAILY PRN PO CONSTIPATION Last administered on 11/08/18 17:32; Admin Dose 5 MG; Start 11/06/18 at 01:30 Hydromorphone HCl (Dilaudid) 4 mg Q4H PRN PO MODERATE PAIN LEVEL 4-6 Last administered on 11/15/18 12:42; Admin Dose 4 MG; Start 11/07/18 at 22:29 Famotidine (Pepcid) 20 mg BID PO Last administered on 11/15/18 08:17; Admin Dose 20 MG; Start 11/08/18 at 21:00 Apixaban (Eliquis) 5 mg BID PO Last administered on 11/15/18 08:17; Admin Dose 5 MG; Start 11/11/18 at 09:30 Lorazepam (Ativan) 1 mg Q6H PRN IV ANXIETY; Start 11/12/18 at 02:30 Levofloxacin (Levaquin) 750 mg DAILY@06 NGT Last administered on 11/15/18 06:04; Admin Dose 750 MG; Start 11/13/18 at 11:30 Doxycycline Hyclate (Vibramycin) 100 mg DAILY PO Last administered on 11/15/18 08:17; Admin Dose 100 MG; Start 11/14/18 at 21:00 Hydromorphone HCl (Dilaudid) 2 mg Q4H PRN IV with dressing changes Last administered on 11/15/18at 14:29; Admin Dose 2 MG; Start 11/15/18 at 14:30 JUVE SOLIMAN MD Nov 15, 2018 17:51
[2018-11-16] VITALS (9 sets, daily range): BP systolic 93–107; BP diastolic 54–62; PULSE 92–111; RESP 18–20
[2018-11-16] MEDS: HYDROmorphONE 2 MG/ML SYG IV PRN ×4 (03:31→21:13)
[2018-11-16] MEDS: LEVOFLOXACIN 750 MG TABLET NGT SCH (05:45)
[2018-11-16] MEDS: ONDANSETRON 4 MG INJ IV PRN ×2 (06:40→12:07)
[2018-11-16] MEDS: FAMOTIDINE 20 MG TAB PO SCH ×2 (08:51→21:13)
[2018-11-16] MEDS: APIXABAN 5 MG TABLET PO SCH ×2 (08:51→21:13)
[2018-11-16] MEDS: DOXYCYCLINE 100 MG TAB PO SCH (08:52)
--- NOTE | 2018-11-16 09:01 | CONS ---
Consult Date/Type/Reason Admit Date/Time Nov 06, 2018 at 01:33 Initial Consult Date Requesting Provider: JUVE SOLIMAN MD Date/Time of Note DATE: 11/16/18 TIME: 08:59 Subjective NO acute events - wound vac in place - feel comfortable. No CP- H/H low but stable. ROS: No fever, no chills, no nausea, no vomiting, no diarrhea/constipation No recent weight changes No chest pain, no PND, no orthopnea + Leg pain, stable No dizziness, blurred vision No thirst, no heat or cold intolerance Objective Vitals Vital Signs Date Temp Pulse Resp B/P (MAP) Pulse Ox O2 O2 Flow FiO2 Time Delivery Rate 11/16/18 111 08:11 11/16/18 98.1 20 104/56 99 Room Air 07:30 (72) Intake and Output 11/15/18 11/15/18 11/16/18 1515:00 23:00 07:00 IntakeIntake Total 900 ml 500 ml OutputOutput Total 1300 ml 800 ml BalanceBalance -400 ml -300 ml Exam General: WN/WD/NAD, AOx 3 HEENT: Unicetric/atraumatic/EOMI (follows commands) NECK: JVD elevated, no thyromegaly Lymph: no lymphadenopathy HEART: regular with no S3, II/ systolic murmur at apex LUNGS: Coarse sounds ABD: soft, NT, ND, +BS : Intact Neuro: non focal SKIN: chronic changes EXT: trace edema, wound vac in place Results/Medications Result Diagram: 11/15/1844 11/15/18 0544 Home Meds No Active Prescriptions or Reported Meds Medications Current Medications Ondansetron HCl (Zofran Inj) 4 mg Q6H PRN IV NAUSEA AND/OR VOMITING Last administered on 11/16/18at 06:40; Admin Dose 4 MG; Start 11/06/18 at 01:30 Ipratropium [place] (Atrovent 0.02% (Neb)) 0.5 mg Q2H RESP THERAPY PRN NEB SHORTNESS OF BREATH; Start 11/06/18 at 01:30 Acetaminophen (Tylenol Liquid) 650 mg Q6H PRN PO PAIN LEVEL 1-3 OR FEVER; Start 11/06/18 at 01:30 Docusate Sodium (Colace) 100 mg Q12H PRN PO CONSTIPATION Last administered on 11/08/18 17:32; Admin Dose 100 MG; Start 11/06/18 at 01:30 Bisacodyl (Dulcolax) 5 mg DAILY PRN PO CONSTIPATION Last administered on 11/08/18 17:32; Admin Dose 5 MG; Start 11/06/18 at 01:30 Hydromorphone HCl (Dilaudid) 4 mg Q4H PRN PO MODERATE PAIN LEVEL 4-6 Last administered on 11/15/18 12:42; Admin Dose 4 MG; Start 11/07/18 at 22:29 Famotidine (Pepcid) 20 mg BID PO Last administered on 11/16/18 08:51; Admin Dose 20 MG; Start 11/08/18 at 21:00 Apixaban (Eliquis) 5 mg BID PO Last administered on 11/16/18 08:51; Admin Dose 5 MG; Start 11/11/18 at 09:30 Lorazepam (Ativan) 1 mg Q6H PRN IV ANXIETY; Start 11/12/18 at 02:30 Levofloxacin (Levaquin) 750 mg DAILY@06 NGT Last administered on 11/16/18 05: 45; Admin Dose 750 MG; Start 11/13/18 at 11:30 Doxycycline Hyclate (Vibramycin) 100 mg DAILY PO Last administered on 11/16/18 08:52; Admin Dose 100 MG; Start 11/14/18 at 21:00 Hydromorphone HCl (Dilaudid) 2 mg Q4H PRN IV with dressing changes Last administered on 11/16/18 03:31; Admin Dose 2 MG; Start 11/15/18 at 14:30 Assessment/Plan Hospital Course (Demo Recall) 1. Acute arterial insufficiency.-s/p open thrpmbectomy - con't pain Rx, vascular team follows - stable now - seen by vascular team. Better - good pulse. 2. Lower extremity deep venous thrombosis in the right lower extremity - on anti-coagulation, heparin gtt stopped. NO signs of bleeding. On Eliquis now. Inproved. 3. Sinus tachycardia in the setting the patient just had surgery with signifi cant lower extremity pain - con't pain Rx. 4. History of prior transient ischemic attack- stbale now. 5. History of possible right to left shunt at level of interatrial septum or atrial septal defect, most commonly patent foramen ovale - on anti-coagulation now. 6. Anemia, worsening - H/H checks - Eliquis strated - H/H 7.8. Pt looks well. NO blood Rx planned. 7. Tachycardia-s tach mild to low 100's. Likley due to pain - better now. In sinus now. Resolved. GALA ALDANA MD Nov 16, 2018 09:01
--- NOTE | 2018-11-16 13:15 | CONS ---
Assessment/Plan Assessment/Plan Hospital Course (Demo Recall) 38 yo F with no PMH with previous history of TIA vs conversion disorder causing right sided paralysis that was resolving presented with unprovoked massive RLE DVT which caused compartment syndrome and decreased pulses s/p three compartment fasciotomy right calf, Norberto thrombectomy right posterior tibial artery and now on anticoagulation. # RLE unprovoked DVT -Patient is now on eliquis -She needs a total of treatment for at least three months of anticoagulation -In terms of hypercoagulable workup, patient can have full workup done after 3 months in outpatient. Labs done now will have false positivity and skew results due to active surgery and clotting. -Patient may have had a state of decreased movement prior as she was hospitalized for paralysis that is still not very well explained. -No family history of clotting disorder makes it unlikely it is genetic but will check in outpatient setting. Consultation Date/Type/Reason Admit Date/Time Nov 06, 2018 at 01:33 Initial Consult Date 11/09/18 Type of Consult hematology Reason for Consultation DVT, coagulopathy Requesting Provider: JUVE SOLIMAN MD Date/Time of Note DATE: 11/16/18 TIME: 13:14 24 HR Interval Summary Free Text/Dictation no acute overnight events.continues on IV antibiotics Exam/Review of Systems Exam Vitals Vital Signs Date Temp Pulse Resp B/P (MAP) Pulse Ox O2 O2 Flow FiO2 Time Delivery Rate 11/16/18 108 12:05 11/16/18 98.7 20 103/61 99 Room Air 11:26 (75) Intake and Output 11/15/18 11/15/18 11/16/18 1414:59 22:59 06:59 IntakeIntake Total 900 ml 500 ml OutputOutput Total 1300 ml 800 ml BalanceBalance -400 ml -300 ml Constitutional: alert, oriented Psych: no complaints Head: normocephalic Eyes: nl conjunctiva ENMT: nl external ears & nose Neck: supple Respiratory: clear to auscultation Cardiovascular: regular rate and rhythm Gastrointestinal: soft Musculoskeletal: nl extremities to inspection Extremities: other (wound vac in place) Results Result Diagram: 11/15/18 0544 11/15/18 0544 Medications Medication Current Medications Ondansetron HCl (Zofran Inj) 4 mg Q6H PRN IV NAUSEA AND/OR VOMITING Last administered on 11/16/18 12:07; Admin Dose 4 MG; Start 11/06/18 at 01:30 Ipratropium [place] (Atrovent 0.02% (Neb)) 0.5 mg Q2H RESP THERAPY PRN NEB SHORTNESS OF BREATH; Start 11/06/18 at 01:30 Acetaminophen (Tylenol Liquid) 650 mg Q6H PRN PO PAIN LEVEL 1-3 OR FEVER; Start 11/06/18 at 01:30 Docusate Sodium (Colace) 100 mg Q12H PRN PO CONSTIPATION Last administered on 11/08/18 17:32; Admin Dose 100 MG; Start 11/06/18 at 01:30 Bisacodyl (Dulcolax) 5 mg DAILY PRN PO CONSTIPATION Last administered on 11/08/18 17:32; Admin Dose 5 MG; Start 11/06/18 at 01:30 Hydromorphone HCl (Dilaudid) 4 mg Q4H PRN PO MODERATE PAIN LEVEL 4-6 Last administered on 11/15/18 12:42; Admin Dose 4 MG; Start 11/07/18 at 22:29 Famotidine (Pepcid) 20 mg BID PO Last administered on 11/16/18 08:51; Admin Dose 20 MG; Start 11/08/18 at 21:00 Apixaban (Eliquis) 5 mg BID PO Last administered on 11/16/18 08:51; Admin Dose 5 MG; Start 11/11/18 at 09:30 Lorazepam (Ativan) 1 mg Q6H PRN IV ANXIETY; Start 11/12/18 at 02:30 Levofloxacin (Levaquin) 750 mg DAILY@06 NGT Last administered on 11/16/18 05:45 ; Admin Dose 750 MG; Start 11/13/18 at 11:30 Doxycycline Hyclate (Vibramycin) 100 mg DAILY PO Last administered on 11/16/18 08:52; Admin Dose 100 MG; Start 11/14/18 at 21:00 Hydromorphone HCl (Dilaudid) 2 mg Q4H PRN IV with dressing changes Last administered on 11/16/18 10:35; Admin Dose 2 MG; Start 11/15/18 at 14:30 JENARO THOMAS M.D. Nov 16, 2018 13:15
--- NOTE | 2018-11-16 14:21 | CONS ---
Assessment/Plan Assessment/Plan Hospital Course (Demo Recall) Patient is alert, complained of nausea earlier, she looks comfortable no fevers overnight, no labs today Antimicrobials: Levofloxacin doxycycline Physical examination: Obese well-developed middle-aged woman who is alert in no distress. Head atraumatic normocephalic. Neck is supple. Chest rise symmetrical breath sounds diminished bases. Heart: S1-S2. Abdomen soft bowel sounds present. Extremities without cyanosis. Right lower extremity has a wound VAC Assessment: 1. Systemic inflammatory response syndrome with ongoing leukocytosis, improving 2. Right lower extremity DVT with ischemic compartment syndrome, status post fasciotomy of the right calf 11/06/[address] Poe 3. Anemia 4. Obesity 5. Atrial septal defect Plan: Stable, continue present care, cardiology recommendations noted, eventual LUÍS Consultation Date/Type/Reason Admit Date/Time Nov 06, 2018 at 01:33 Initial Consult Date 11/09/18 Type of Consult id Requesting Provider: JUVE SOLIMAN MD Date/Time of Note DATE: 11/16/18 TIME: 14:20 Exam/Review of Systems Exam Vitals Vital Signs Date Temp Pulse Resp B/P (MAP) Pulse Ox O2 O2 Flow FiO2 Time Delivery Rate 11/16/18 108 12:05 11/16/18 98.7 20 103/61 99 Room Air 11:26 (75) Intake and Output 11/15/18 11/15/18 11/16/18 1515:00 23:00 07:00 IntakeIntake Total 900 ml 500 ml OutputOutput Total 1300 ml 800 ml BalanceBalance -400 ml -300 ml Results Result Diagram: 11/15/18 0544 11/15/18 0544 Medications Medication Current Medications Ondansetron HCl (Zofran Inj) 4 mg Q6H PRN IV NAUSEA AND/OR VOMITING Last administered on 11/16/18at 12:07; Admin Dose 4 MG; Start 11/06/18 at 01:30 Ipratropium [place] (Atrovent 0.02% (Neb)) 0.5 mg Q2H RESP THERAPY PRN NEB SH ORTNESS OF BREATH; Start 11/06/18 at 01:30 Acetaminophen (Tylenol Liquid) 650 mg Q6H PRN PO PAIN LEVEL 1-3 OR FEVER; Start 11/06/18 at 01:30 Docusate Sodium (Colace) 100 mg Q12H PRN PO CONSTIPATION Last administered on 11/08/18 17:32; Admin Dose 100 MG; Start 11/06/18 at 01:30 Bisacodyl (Dulcolax) 5 mg DAILY PRN PO CONSTIPATION Last administered on 11/08/18 17:32; Admin Dose 5 MG; Start 11/06/18 at 01:30 Hydromorphone HCl (Dilaudid) 4 mg Q4H PRN PO MODERATE PAIN LEVEL 4-6 Last administered on 11/15/18 12:42; Admin Dose 4 MG; Start 11/07/18 at 22:29 Famotidine (Pepcid) 20 mg BID PO Last administered on 11/16/18 08:51; Admin Dose 20 MG; Start 11/08/18 at 21:00 Apixaban (Eliquis) 5 mg BID PO Last administered on 11/16/18 08:51; Admin Dose 5 MG; Start 11/11/18 at 09:30 Lorazepam (Ativan) 1 mg Q6H PRN IV ANXIETY; Start 11/12/18 at 02:30 Levofloxacin (Levaquin) 750 mg DAILY@06 NGT Last administered on 11/16/18 05:45; Admin Dose 750 MG; Start 11/13/18 at 11:30 Doxycycline Hyclate (Vibramycin) 100 mg DAILY PO Last administered on 11/16/18 08:52; Admin Dose 100 MG; Start 11/14/18 at 21:00 Hydromorphone HCl (Dilaudid) 2 mg Q4H PRN IV with dressing changes Last administered on 11/16/18 10:35; Admin Dose 2 MG; Start 11/15/18 at 14:30 TIFFANIE DEVINE NP Nov 16, 2018 14:21
--- NOTE | 2018-11-16 15:30 | PN ---
Date/Time of Note Date/Time of Note DATE: 11/16/18 TIME: 15:24 Assessment/Plan VTE Prophylaxis Risk score (from Nsg)>0 risk: 6 SCD applied (from Nsg): No SCD contraindicated: low risk/ambulating Pharmacological prophylaxis: apixaban Lines/Catheters IV Catheter Type (from Nrsg): Saline Lock Urinary Cath still in place: No Reason Cath still needed: other (indicate) (not needed) Assessment/Plan Assessment/Plan 38 yo woman no major PMH presents with RLE acute limb ischemia plus DVT. # Right lower extremity DVT with ischemia - Patient was found to have a right lower extremity DVT on ultrasound as well as arterial occlusion on CT imaging, s/p three compartment fasciotomy right calf, Norberto thrombectomy right posterior tibial artery by Dr. Poe (11/06). 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 -Continue Eliquis 5 mg twice daily as recommended by heme/onc team, monitor -Continue Dilaudid PO and IV for pain control, continue wound VAC -Follow-up recommendations from PT eval # Atrial septal defect- Patient has atrial septal defect as seen on echo with bubble 09/24/2018. -Appreciate cardiology consult, follow-up their further recommendations Dr. Melara - Patient will likely need prolonged anticoagulation for DVT anyway. So no shunt closure needed anytime soon. # Iron deficiency anemia- Ferritin deficient.-Patient received IV ferrlicit- Also postoperative bleeding, required PRBC transfusion 6 days ago -Hemoglobin presently stable, continue to monitor CBC daily # EULOGIO: Resolved likely secondary to hemodynamics, mild dehydration. -For now continue IV fluid hydration - Monitor renal function. Avoid nephrotoxic agents. # Prediabetes: Recent hemoglobin A1c 6.2, - encourage diet and lifestyle modification. - Monitor blood sugars while inpatient. # obesity: Encourage diet and exercise, patient has prediabetes please see #4. TSH was within normal values during previous admission. #Leukocytosis: Unclear source. No fevers. White blood cell count down to 17,000 today UA shows trace positive leukocyte esterase, although infectious disease team stated patient's leukocytosis likely related to muscle necrosis rather than infection per se. -For now continue Levaquin, follow-up ID recommendation Dispo: Still requiring IV dilaudid for dressing changes. At this point ARU would probably be better; wound changes may be burdensome to do at home. Result Diagram: 11/15/18 0544 11/15/18 0544 Subjective 24 Hr Interval Summary Free Text/Dictation No acute overnight events. Patient feeling well. Exam/Review of Systems Exam Vitals Vital Signs Date Temp Pulse Resp B/P (MAP) Pulse Ox O2 O2 Flow FiO2 Time Delivery Rate 11/16/18 108 12:05 11/16/18 98.7 20 103/61 99 Room Air 11:26 (75) Intake and Output 11/15/18 11/15/18 11/16/18 1515:00 23:00 07:00 IntakeIntake Total 900 ml 500 ml OutputOutput Total 1300 ml 800 ml BalanceBalance -400 ml -300 ml Exam General: Well developed woman awake and alert, no distress HEENT: Atraumatic, normocephalic. Neck: Supple with full range of motion. No rigidity or meningismus Chest: Nontender Lungs: Clear to auscultation bilaterally no crackles rales or wheezing Heart: Sinus tachy, no murmurs Abdomen: Soft , nontender, nondistended. No guarding no rebound tenderness , Extremities: Right lower extremity: Wound VAC in place, slight positive DP pulse felt, warm. Left foot has + DP pulse and is warm. Medications Medication Current Medications Ondansetron HCl (Zofran Inj) 4 mg Q6H PRN IV NAUSEA AND/OR VOMITING Last administered on 11/16/18at 12:07; Admin Dose 4 MG; Start 11/06/18 at 01:30 Ipratropium [place] (Atrovent 0.02% (Neb)) 0.5 mg Q2H RESP THERAPY PRN NEB SHORTNESS OF BREATH; Start 11/06/18 at 01:30 Acetaminophen (Tylenol Liquid) 650 mg Q6H PRN PO PAIN LEVEL 1-3 OR FEVER; Start 11/06/18 at 01:30 Docusate Sodium (Colace) 100 mg Q12H PRN PO CONSTIPATION Last administered on 11/08/18 17:32; Admin Dose 100 MG; Start 11/06/18 at 01:30 Bisacodyl (Dulcolax) 5 mg DAILY PRN PO CONSTIPATION Last administered on 11/08/18at 17:32; Admin Dose 5 MG; Start 11/06/18 at 01:30 Hydromorphone HCl (Dilaudid) 4 mg Q4H PRN PO MODERATE PAIN LEVEL 4-6 Last administered on 11/15/18 12:42; Admin Dose 4 MG; Start 11/07/18 at 22:29 Famotidine (Pepcid) 20 mg BID PO Last administered on 11/16/18 08:51; Admin Dose 20 MG; Start 11/08/18 at 21:00 Apixaban (Eliquis) 5 mg BID PO Last administered on 11/16/18 08:51; Admin Dose 5 MG; Start 11/11/18 at 09:30 Lorazepam (Ativan) 1 mg Q6H PRN IV ANXIETY; Start 11/12/18 at 02:30 Levofloxacin (Levaquin) 750 mg DAILY@06 NGT Last administered on 11/16/18 05:45; Admin Dose 750 MG; Start 11/13/18 at 11:30 Doxycycline Hyclate (Vibramycin) 100 mg DAILY PO Last administered on 11/16/18 08:52; Admin Dose 100 MG; Start 11/14/18 at 21:00 Hydromorphone HCl (Dilaudid) 2 mg Q4H PRN IV with dressing changes Last administered on 11/16/18 10:35; Admin Dose 2 MG; Start 11/15/18 at 14:30 JUVE SOLIMAN MD Nov 16, 2018 15:30
[2018-11-17] VITALS: BP 103/55; PULSE 103; PULSE 104; RESP 20
[2018-11-17] MEDS: HYDROmorphONE 2 MG/ML SYG IV PRN ×5 (01:12→21:06)
[2018-11-17 04:00] VITALS: BP 101/58; PULSE 100; RESP 18
[2018-11-17] MEDS: LEVOFLOXACIN 750 MG TABLET NGT SCH ×2 (06:00→10:44)
[2018-11-17 07:55] VITALS: BP 101/53; PULSE 96; RESP 16
[2018-11-17] MEDS: APIXABAN 5 MG TABLET PO SCH ×2 (08:42→20:32)
[2018-11-17] MEDS: FAMOTIDINE 20 MG TAB PO SCH ×2 (08:42→20:32)
[2018-11-17] MEDS: DOXYCYCLINE 100 MG TAB PO SCH (08:43)
--- NOTE | 2018-11-17 12:12 | CONS ---
Assessment/Plan Assessment/Plan Hospital Course (Demo Recall) All noted, no acute events, no fevers. Patient is alert and feels good, family at bedside Antimicrobials: Levofloxacin doxycycline Physical examination: Obese well-developed middle-aged woman who is alert in no distress. Head atraumatic normocephalic. Neck is supple. Chest rise symmetrical breath sounds diminished bases. Heart: S1-S2. Abdomen soft bowel sounds present. Extremities without cyanosis. Right lower extremity has a wound VAC Assessment: 1. Systemic inflammatory response syndrome with ongoing leukocytosis, improving 2. Right lower extremity DVT with ischemic compartment syndrome, status post fasciotomy of the right calf 11/06/[address] Poe 3. Anemia 4. Obesity 5. Atrial septal defect Plan: Remains stable, wbc trending down, continue present care, PT, eventual LUÍS Consultation Date/Type/Reason Admit Date/Time Nov 06, 2018 at 01:33 Initial Consult Date 11/09/18 Type of Consult id Requesting Provider: JUVE SOLIMAN MD Date/Time of Note DATE: 11/17/18 TIME: 12:11 Exam/Review of Systems Exam Vitals Vital Signs Date Temp Pulse Resp B/P (MAP) Pulse Ox O2 O2 Flow FiO2 Time Delivery Rate 11/17/18 98.5 96 16 101/53 100 07:55 (69) 11/16/18 Room Air 15:41 Intake and Output 11/16/18 11/16/18 11/17/18 1515:00 23:00 07:00 IntakeIntake Total 1200 ml OutputOutput Total 820 ml BalanceBalance 380 ml Results Result Diagram: 11/17/18 0703 11/17/18 0703 Results 24hrs Laboratory Tests Test 11/17/18 07:03 White Blood Count 15.7 H Red Blood Count 3.33 L Hemoglobin 7.6 L Hematocrit 25.7 L Mean Corpuscular Volume 77.2 L Mean Corpuscular Hemoglobin 22.8 L Mean Corpuscular Hemoglobin Concent 29.6 L Red Cell Distribution Width 22.2 H Platelet Count 756 #H Mean Platelet Volume 10.1 Immature Granulocytes % 5.000 H Neutrophils % Segmented Neutrophils % (Manual) 75 Band Neutrophils % (Manual) 3 Lymphocytes % Lymphocytes % (Manual) 12 L Monocytes % Monocytes % (Manual) 3 Eosinophils % Eosinophils % (Manual) 4 Basophils % Basophils % (Manual) 1 Metamyelocytes % (manual) 2 H Nucleated Red Blood Cells % 0.3 H Immature Granulocytes # 0.780 H Neutrophils # Neutrophils # (Manual) 11.8 H Band Neutrophils # 0.4 Lymphocytes (Manual) 1.8 Lymphocytes # Monocytes # Monocytes # (Manual) 0.4 Eosinophils # Basophils # Basophils # (Manual) 0.1 H Metamyelocytes # 0.3 H Nucleated Red Blood Cells # Platelet Estimate INCREASED Giant Platelets 1 H Polychromasia 2+ Hypochromasia 3+ Poikilocytosis 1+ Anisocytosis 2+ Microcytosis 1+ Macrocytosis 2+ Ovalocytes 1+ Sodium Level 133 L Potassium Level 4.1 Chloride Level 95 L Carbon Dioxide Level 31 Anion Gap 7 Blood Urea Nitrogen 10 Creatinine 0.82 Est Glomerular Filtrat Rate mL/min > 60 Glucose Level 137 Calcium Level 8.3 L Phosphorus Level 4.3 Magnesium Level 2.2 Medications Medication Current Medications Ondansetron HCl (Zofran Inj) 4 mg Q6H PRN IV NAUSEA AND/OR VOMITING Last administered on 11/16/18 12:07; Admin Dose 4 MG; Start 11/06/18 at 01:30 Ipratropium [place] (Atrovent 0.02% (Neb)) 0.5 mg Q2H RESP THERAPY PRN NEB SHORTNESS OF BREATH; Start 11/06/18 at 01:30 Acetaminophen (Tylenol Liquid) 650 mg Q6H PRN PO PAIN LEVEL 1-3 OR FEVER; S tart 11/06/18 at 01:30 Docusate Sodium (Colace) 100 mg Q12H PRN PO CONSTIPATION Last administered on 11/08/18 17:32; Admin Dose 100 MG; Start 11/06/18 at 01:30 Bisacodyl (Dulcolax) 5 mg DAILY PRN PO CONSTIPATION Last administered on 11/08/18 17:32; Admin Dose 5 MG; Start 11/06/18 at 01:30 Hydromorphone HCl (Dilaudid) 4 mg Q4H PRN PO MODERATE PAIN LEVEL 4-6 Last administered on 11/15/18 12:42; Admin Dose 4 MG; Start 11/07/18 at 22:29 Famotidine (Pepcid) 20 mg BID PO Last administered on 11/17/18 08:42; Admin Dose 20 MG; Start 11/08/18 at 21:00 Apixaban (Eliquis) 5 mg BID PO Last administered on 11/17/18 08:42; Admin Dose 5 MG; Start 11/11/18 at 09:30 Lorazepam (Ativan) 1 mg Q6H PRN IV ANXIETY; Start 11/12/18 at 02:30 Levofloxacin (Levaquin) 750 mg DAILY@06 NGT Last administered on 11/17/18at 10:44; Admin Dose 750 MG; Start 11/13/18 at 11:30 Doxycycline Hyclate (Vibramycin) 100 mg DAILY PO Last administered on 11/17/18 08:43; Admin Dose 100 MG; Start 11/14/18 at 21:00 Hydromorphone HCl (Dilaudid) 2 mg Q4H PRN IV with dressing changes Last administered on 11/17/18at 10:44; Admin Dose 2 MG; Start 11/15/18 at 14:30 TIFFANIE DEVINE NP Nov 17, 2018 12:12
--- NOTE | 2018-11-17 13:19 | CONS ---
Assessment/Plan Assessment/Plan Hospital Course (Demo Recall) IMPRESSION: 1. Acute arterial insufficiency.-s/p open thrombectomy 2. Lower extremity deep venous thrombosis in the right lower extremity. 3. Sinus tachycardia in the setting the patient just had surgery with significant lower extremity pain. 4. History of prior transient ischemic attack. 5. History of possible right to left shunt at level of interatrial septum or atrial septal defect, most commonly patent foramen ovale. 6. Anemia, worsening. 7. Leukocytosis. 8. Rhabdomyolysis. 9. Tachycardia-s tach mild to low 100's. Likely due to pain Recc: -Tele -Pain control -Continue anticoagulation now with apixaban -local wound care -would evaluate interatrial septum with LUÍS at later date when has recovered from current surgery Consultation Date/Type/Reason Admit Date/Time Nov 06, 2018 at 01:33 Initial Consult Date 01/07/19 Type of Consult Cardiology Reason for Consultation ASD Requesting Provider: JUVE SOLIMAN MD Date/Time of Note DATE: 11/17/18 TIME: 13:14 Exam/Review of Systems Vital Signs Vitals Vital Signs Date Temp Pulse Resp B/P (MAP) Pulse Ox O2 O2 Flow FiO2 Time Delivery Rate 11/17/18 98.5 96 16 101/53 100 07:55 (69) 11/16/18 Room Air 15:41 Intake and Output 11/16/18 11/16/18 11/17/18 1515:00 23:00 07:00 IntakeIntake Total 1200 ml OutputOutput Total 820 ml BalanceBalance 380 ml Exam Exam Review of Systems: CONSTITUTIONAL: No fevers, chills. PULMONARY: No sob CARDIOVASCULAR: No chest pain/palpitations GASTROINTESTINAL: No nausea/vomiting. GENITOURINARY: No hematuria/dysuria. MUSCULOSKELETAL: No myagias/arthalgias. PSYCHIATRIC: The patient denies depression. NEUROLOGIC: No weakness Constitutional: alert Psych: no complaints Head: normocephalic ENMT: mucosa pink and moist Neck: supple, jvd (9 cm water) Respiratory: clear to auscultation Cardiovascular: regular rate and rhythm Gastrointestinal: soft, non-tender Musculoskeletal: muscle tone Extremities: edema (none) Neurological: other (none) Labs Result Diagram: 11/17/18 0703 11/17/18 0703 Results 24hrs Laboratory Tests Test 11/17/18 07:03 White Blood Count 15.7 H Red Blood Count 3.33 L Hemoglobin 7.6 L Hematocrit 25.7 L Mean Corpuscular Volume 77.2 L Mean Corpuscular Hemoglobin 22.8 L Mean Corpuscular Hemoglobin Concent 29.6 L Red Cell Distribution Width 22.2 H Platelet Count 756 #H Mean Platelet Volume 10.1 Immature Granulocytes % 5.000 H Neutrophils % Segmented Neutrophils % (Manual) 75 Band Neutrophils % (Manual) 3 Lymphocytes % Lymphocytes % (Manual) 12 L Monocytes % Monocytes % (Manual) 3 Eosinophils % Eosinophils % (Manual) 4 Basophils % Basophils % (Manual) 1 Metamyelocytes % (manual) 2 H Nucleated Red Blood Cells % 0.3 H Immature Granulocytes # 0.780 H Neutrophils # Neutrophils # (Manual) 11.8 H Band Neutrophils # 0.4 Lymphocytes (Manual) 1.8 Lymphocytes # Monocytes # Monocytes # (Manual) 0.4 Eosinophils # Basophils # Basophils # (Manual) 0.1 H Metamyelocytes # 0.3 H Nucleated Red Blood Cells # Platelet Estimate INCREASED Giant Platelets 1 H Polychromasia 2+ Hypochromasia 3+ Poikilocytosis 1+ Anisocytosis 2+ Microcytosis 1+ Macrocytosis 2+ Ovalocytes 1+ Sodium Level 133 L Potassium Level 4.1 Chloride Level 95 L Carbon Dioxide Level 31 Anion Gap 7 Blood Urea Nitrogen 10 Creatinine 0.82 Est Glomerular Filtrat Rate mL/min > 60 Glucose Level 137 Calcium Level 8.3 L Phosphorus Level 4.3 Magnesium Level 2.2 Medications Medications Current Medications Ondansetron HCl (Zofran Inj) 4 mg Q6H PRN IV NAUSEA AND/OR VOMITING Last administered on 11/16/18at 12:07; Admin Dose 4 MG; Start 11/06/18 at 01:30 Ipratropium [place] (Atrovent 0.02% (Neb)) 0.5 mg Q2H RESP THERAPY PRN NEB SHORTNESS OF BREATH; Start 11/06/18 at 01:30 Acetaminophen (Tylenol Liquid) 650 mg Q6H PRN PO PAIN LEVEL 1-3 OR FEVER; Start 11/06/18 at 01:30 Docusate Sodium (Colace) 100 mg Q12H PRN PO CONSTIPATION Last administered on 11/08/18at 17:32; Admin Dose 100 MG; Start 11/06/18 at 01:30 Bisacodyl (Dulcolax) 5 mg DAILY PRN PO CONSTIPATION Last administered on 11/08/18 17:32; Admin Dose 5 MG; Start 11/06/18 at 01:30 Hydromorphone HCl (Dilaudid) 4 mg Q4H PRN PO MODERATE PAIN LEVEL 4-6 Last administered on 11/15/18 12:42; Admin Dose 4 MG; Start 11/07/18 at 22:29 Famotidine (Pepcid) 20 mg BID PO Last administered on 11/17/18 08:42; Admin Dose 20 MG; Start 11/08/18 at 21:00 Apixaban (Eliquis) 5 mg BID PO Last administered on 11/17/18 08:42; Admin Dose 5 MG; Start 11/11/18 at 09:30 Lorazepam (Ativan) 1 mg Q6H PRN IV ANXIETY; Start 11/12/18 at 02:30 Levofloxacin (Levaquin) 750 mg DAILY@06 NGT Last administered on 11/17/18 10:44; Admin Dose 750 MG; Start 11/13/18 at 11:30 Doxycycline Hyclate (Vibramycin) 100 mg DAILY PO Last administered on 11/17/18 08:43; Admin Dose 100 MG; Start 11/14/18 at 21:00 Hydromorphone HCl (Dilaudid) 2 mg Q4H PRN IV with dressing changes Last administered on 11/17/18 10:44; Admin Dose 2 MG; Start 11/15/18 at 14:30 JUVE POWELL Nov 17, 2018 13:19
--- NOTE | 2018-11-17 13:38 | PN ---
Date/Time of Note Date/Time of Note DATE: 11/17/18 TIME: 13:33 Assessment/Plan VTE Prophylaxis Risk score (from Nsg)>0 risk: 4 SCD applied (from Nsg): No SCD contraindicated: other (no) Pharmacological prophylaxis: apixaban Lines/Catheters IV Catheter Type (from Nrsg): Saline Lock Urinary Cath still in place: No Assessment/Plan Assessment/Plan 38 yo woman no major PMH presents with RLE acute limb ischemia plus DVT. # Right lower extremity DVT with ischemia - Patient was found to have a right lower extremity DVT on ultrasound as well as arterial occlusion on CT imaging, s/p three compartment fasciotomy right calf, Norberto thrombectomy right posterior tibial artery by Dr. Poe (11/06). 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 -Continue Eliquis 5 mg twice daily as recommended by heme/onc team, monitor -Continue Dilaudid PO and IV for pain control, continue wound VAC -Follow-up recommendations from PT eval # Atrial septal defect- Patient has atrial septal defect as seen on echo with bubble 09/24/2018. -Appreciate cardiology consult, follow-up their further recommendations Dr. Melara - Patient will likely need prolonged anticoagulation for DVT anyway. So no shunt closure needed anytime soon. # Iron deficiency anemia- Ferritin deficient.-Patient received IV ferrlicit- Also postoperative bleeding, required PRBC transfusion 6 days ago -Hemoglobin presently stable, continue to monitor CBC daily # EULOGIO: Resolved likely secondary to hemodynamics, mild dehydration. -For now continue IV fluid hydration - Monitor renal function. Avoid nephrotoxic agents. # Prediabetes: Recent hemoglobin A1c 6.2, - encourage diet and lifestyle modification. - Monitor blood sugars while inpatient. # obesity: Encourage diet and exercise, patient has prediabetes please see #4. TSH was within normal values during previous admission. #Leukocytosis - On empiric levofloxacin Dispo: Medically stable for discharge home with wound vac versus SNF. Result Diagram: 11/17/1803 11/17/18 0703 Subjective 24 Hr Interval Summary Free Text/Dictation No acute overnight events. Patient feeling well, no complaints. Exam/Review of Systems Exam Vitals Vital Signs Date Temp Pulse Resp B/P (MAP) Pulse Ox O2 O2 Flow FiO2 Time Delivery Rate 11/17/18 98.5 96 16 101/53 100 07:55 (69) 11/16/18 Room Air 15:41 Intake and Output 11/16/18 11/16/18 11/17/18 1515:00 23:00 07:00 IntakeIntake Total 1200 ml OutputOutput Total 820 ml BalanceBalance 380 ml Exam General: Well developed woman awake and alert, no distress HEENT: Atraumatic, normocephalic. Neck: Supple with full range of motion. No rigidity or meningismus Chest: Nontender Lungs: Clear to auscultation bilaterally no crackles rales or wheezing Heart: Sinus tachy, no murmurs Abdomen: Soft , nontender, nondistended. No guarding no rebound tenderness , Extremities: Right lower extremity: Wound VAC in place, slight positive DP pulse felt, warm. Left foot has + DP pulse and is warm. Results Results 24hrs Laboratory Tests Test 11/17/18 07:03 White Blood Count 15.7 H Red Blood Count 3.33 L Hemoglobin 7.6 L Hematocrit 25.7 L Mean Corpuscular Volume 77.2 L Mean Corpuscular Hemoglobin 22.8 L Mean Corpuscular Hemoglobin Concent 29.6 L Red Cell Distribution Width 22.2 H Platelet Count 756 #H Mean Platelet Volume 10.1 Immature Granulocytes % 5.000 H Neutrophils % Segmented Neutrophils % (Manual) 75 Band Neutrophils % (Manual) 3 Lymphocytes % Lymphocytes % (Manual) 12 L Monocytes % Monocytes % (Manual) 3 Eosinophils % Eosinophils % (Manual) 4 Basophils % Basophils % (Manual) 1 Metamyelocytes % (manual) 2 H Nucleated Red Blood Cells % 0.3 H Immature Granulocytes # 0.780 H Neutrophils # Neutrophils # (Manual) 11.8 H Band Neutrophils # 0.4 Lymphocytes (Manual) 1.8 Lymphocytes # Monocytes # Monocytes # (Manual) 0.4 Eosinophils # Basophils # Basophils # (Manual) 0.1 H Metamyelocytes # 0.3 H Nucleated Red Blood Cells # Platelet Estimate INCREASED Giant Platelets 1 H Polychromasia 2+ Hypochromasia 3+ Poikilocytosis 1+ Anisocytosis 2+ Microcytosis 1+ Macrocytosis 2+ Ovalocytes 1+ Sodium Level 133 L Potassium Level 4.1 Chloride Level 95 L Carbon Dioxide Level 31 Anion Gap 7 Blood Urea Nitrogen 10 Creatinine 0.82 Est Glomerular Filtrat Rate mL/min > 60 Glucose Level 137 Calcium Level 8.3 L Phosphorus Level 4.3 Magnesium Level 2.2 Medications Medication Current Medications Ondansetron HCl (Zofran Inj) 4 mg Q6H PRN IV NAUSEA AND/OR VOMITING Last administered on 11/16/18 12:07; Admin Dose 4 MG; Start 11/06/18 at 01:30 Ipratropium [place] (Atrovent 0.02% (Neb)) 0.5 mg Q2H RESP THERAPY PRN NEB SHORTNESS OF BREATH; Start 11/06/18 at 01:30 Acetaminophen (Tylenol Liquid) 650 mg Q6H PRN PO PAIN LEVEL 1-3 OR FEVER; Start 11/06/18 at 01:30 Docusate Sodium (Colace) 100 mg Q12H PRN PO CONSTIPATION Last administered on 11/08/18 17:32; Admin Dose 100 MG; Start 11/06/18 at 01:30 Bisacodyl (Dulcolax) 5 mg DAILY PRN PO CONSTIPATION Last administered on 11/08/18 17:32; Admin Dose 5 MG; Start 11/06/18 at 01:30 Hydromorphone HCl (Dilaudid) 4 mg Q4H PRN PO MODERATE PAIN LEVEL 4-6 Last administered on 11/15/18 12:42; Admin Dose 4 MG; Start 11/07/18 at 22:29 Famotidine (Pepcid) 20 mg BID PO Last administered on 11/17/18 08:42; Admin D ose 20 MG; Start 11/08/18 at 21:00 Apixaban (Eliquis) 5 mg BID PO Last administered on 11/17/18 08:42; Admin Dose 5 MG; Start 11/11/18 at 09:30 Lorazepam (Ativan) 1 mg Q6H PRN IV ANXIETY; Start 11/12/18 at 02:30 Levofloxacin (Levaquin) 750 mg DAILY@06 NGT Last administered on 11/17/18 10:44; Admin Dose 750 MG; Start 11/13/18 at 11:30 Doxycycline Hyclate (Vibramycin) 100 mg DAILY PO Last administered on 11/17/18 08:43; Admin Dose 100 MG; Start 11/14/18 at 21:00 Hydromorphone HCl (Dilaudid) 2 mg Q4H PRN IV with dressing changes Last administered on 11/17/18at 10:44; Admin Dose 2 MG; Start 11/15/18 at 14:30 JUVE SOLIMAN MD Nov 17, 2018 13:38
--- NOTE | 2018-11-17 14:21 | CONS ---
Assessment/Plan Assessment/Plan Hospital Course (Demo Recall) 38 yo F with no PMH with previous history of TIA vs conversion disorder causing right sided paralysis that was resolving presented with unprovoked massive RLE DVT which caused compartment syndrome and decreased pulses s/p three compartment fasciotomy right calf, Norberto thrombectomy right posterior tibial artery and now on anticoagulation. # RLE unprovoked DVT -Patient is now on eliquis -She needs a total of treatment for at least three months of anticoagulation -In terms of hypercoagulable workup, patient can have full workup done after 3 months in outpatient. Labs done now will have false positivity and skew results due to active surgery and clotting. -Patient may have had a state of decreased movement prior as she was hospitalized for paralysis that is still not very well explained. -No family history of clotting disorder makes it unlikely it is genetic but will check in outpatient setting. Consultation Date/Type/Reason Admit Date/Time Nov 06, 2018 at 01:33 Initial Consult Date 11/09/18 Type of Consult hematology Reason for Consultation DVT Requesting Provider: JUVE SOLIMAN MD Date/Time of Note DATE: 11/17/18 TIME: 14:20 24 HR Interval Summary Free Text/Dictation no acute overnight events Exam/Review of Systems Exam Vitals Vital Signs Date Temp Pulse Resp B/P (MAP) Pulse Ox O2 O2 Flow FiO2 Time Delivery Rate 11/17/18 98.5 96 16 101/53 100 07:55 (69) 11/16/18 Room Air 15:41 Intake and Output 11/16/18 11/16/18 11/17/18 1414:59 22:59 06:59 IntakeIntake Total 1200 ml OutputOutput Total 820 ml BalanceBalance 380 ml Constitutional: alert, oriented Psych: no complaints Head: normocephalic Eyes: nl conjunctiva ENMT: nl external ears & nose Neck: supple Respiratory: clear to auscultation Cardiovascular: regular rate and rhythm Gastrointestinal: soft Musculoskeletal: nl extremities to inspection Extremities: other (RLE wound vac in place) Results Result Diagram: 11/17/18 0703 11/17/18 0703 Results 24hrs Laboratory Tests Test 11/17/18 07:03 White Blood Count 15.7 H Red Blood Count 3.33 L Hemoglobin 7.6 L Hematocrit 25.7 L Mean Corpuscular Volume 77.2 L Mean Corpuscular Hemoglobin 22.8 L Mean Corpuscular Hemoglobin Concent 29.6 L Red Cell Distribution Width 22.2 H Platelet Count 756 #H Mean Platelet Volume 10.1 Immature Granulocytes % 5.000 H Neutrophils % Segmented Neutrophils % (Manual) 75 Band Neutrophils % (Manual) 3 Lymphocytes % Lymphocytes % (Manual) 12 L Monocytes % Monocytes % (Manual) 3 Eosinophils % Eosinophils % (Manual) 4 Basophils % Basophils % (Manual) 1 Metamyelocytes % (manual) 2 H Nucleated Red Blood Cells % 0.3 H Immature Granulocytes # 0.780 H Neutrophils # Neutrophils # (Manual) 11.8 H Band Neutrophils # 0.4 Lymphocytes (Manual) 1.8 Lymphocytes # Monocytes # Monocytes # (Manual) 0.4 Eosinophils # Basophils # Basophils # (Manual) 0.1 H Metamyelocytes # 0.3 H Nucleated Red Blood Cells # Platelet Estimate INCREASED Giant Platelets 1 H Polychromasia 2+ Hypochromasia 3+ Poikilocytosis 1+ Anisocytosis 2+ Microcytosis 1+ Macrocytosis 2+ Ovalocytes 1+ Sodium Level 133 L Potassium Level 4.1 Chloride Level 95 L Carbon Dioxide Level 31 Anion Gap 7 Blood Urea Nitrogen 10 Creatinine 0.82 Est Glomerular Filtrat Rate mL/min > 60 Glucose Level 137 Calcium Level 8.3 L Phosphorus Level 4.3 Magnesium Level 2.2 Medications Medication Current Medications Ondansetron HCl (Zofran Inj) 4 mg Q6H PRN IV NAUSEA AND/OR VOMITING Last administered on 11/16/18 12:07; Admin Dose 4 MG; Start 11/06/18 at 01:30 Ipratropium [place] (Atrovent 0.02% (Neb)) 0.5 mg Q2H RESP THERAPY PRN NEB SHORTNESS OF BREATH; Start 11/06/18 at 01:30 Acetaminophen (Tylenol Liquid) 650 mg Q6H PRN PO PAIN LEVEL 1-3 OR FEVER; Start 11/06/18 at 01:30 Docusate Sodium (Colace) 100 mg Q12H PRN PO CONSTIPATION Last administered on 11/08/18 17:32; Admin Dose 100 MG; Start 11/06/18 at 01:30 Bisacodyl (Dulcolax) 5 mg DAILY PRN PO CONSTIPATION Last administered on 11/08/18 17:32; Admin Dose 5 MG; Start 11/06/18 at 01:30 Hydromorphone HCl (Dilaudid) 4 mg Q4H PRN PO MODERATE PAIN LEVEL 4-6 Last administered on 11/15/18 12:42; Admin Dose 4 MG; Start 11/07/18 at 22:29 Famotidine (Pepcid) 20 mg BID PO Last administered on 11/17/18 08:42; Admin Dose 20 MG; Start 11/08/18 at 21:00 Apixaban (Eliquis) 5 mg BID PO Last administered on 11/17/18 08:42; Admin Dose 5 MG; Start 11/11/18 at 09:30 Lorazepam (Ativan) 1 mg Q6H PRN IV ANXIETY; Start 11/12/18 at 02:30 Levofloxacin (Levaquin) 750 mg DAILY@06 NGT Last administered on 11/17/18 10:44; Admin Dose 750 MG; Start 11/13/18 at 11:30 Doxycycline Hyclate (Vibramycin) 100 mg DAILY PO Last administered on 11/17/18 08:43; Admin Dose 100 MG; Start 11/14/18 at 21:00 Hydromorphone HCl (Dilaudid) 2 mg Q4H PRN IV with dressing changes Last administered on 11/17/18 10:44; Admin Dose 2 MG; Start 11/15/18 at 14:30 JENARO THOMAS M.D. Nov 17, 2018 14:21
[2018-11-17 14:43] VITALS: BP 109/56; PULSE 106; RESP 18
[2018-11-17] MEDS: HYDROmorphONE 2 MG TAB PO PRN (19:32)
[2018-11-17 20:05] VITALS: BP 109/54; PULSE 111; RESP 18
[2018-11-18 02:10] VITALS: BP 96/52; PULSE 101; RESP 18
[2018-11-18] MEDS: HYDROmorphONE 2 MG/ML SYG IV PRN ×5 (02:18→19:52)
[2018-11-18] MEDS: ONDANSETRON 4 MG INJ IV PRN ×2 (02:18→23:09)
[2018-11-18] MEDS: LEVOFLOXACIN 750 MG TABLET NGT SCH (05:43)
[2018-11-18 08:01] VITALS: BP 99/56; PULSE 98; RESP 18
[2018-11-18] MEDS: DOXYCYCLINE 100 MG TAB PO SCH (08:48)
[2018-11-18] MEDS: APIXABAN 5 MG TABLET PO SCH ×2 (08:48→20:02)
[2018-11-18] MEDS: FAMOTIDINE 20 MG TAB PO SCH ×2 (08:48→20:02)
--- NOTE | 2018-11-18 12:44 | CONS ---
Assessment/Plan Assessment/Plan Hospital Course (Demo Recall) No acute events, no fevers. Antimicrobials: Levofloxacin doxycycline Physical examination: Obese well-developed middle-aged woman who is alert in no distress. Head atraumatic normocephalic. Neck is supple. Chest rise symmetrical breath sounds diminished bases. Heart: S1-S2. Abdomen soft bowel sounds present. Extremities without cyanosis. Right lower extremity has a wound VAC Assessment: 1. Systemic inflammatory response syndrome with ongoing leukocytosis 2. Right lower extremity DVT with ischemic compartment syndrome, status post fasciotomy of the right calf 11/06/[address] Poe 3. Anemia 4. Obesity 5. Atrial septal defect Plan: Remains stable, continue present care, dc abx and observe Consultation Date/Type/Reason Admit Date/Time Nov 06, 2018 at 01:33 Initial Consult Date 11/09/18 Type of Consult id Requesting Provider: JUVE SOLIMAN MD Date/Time of Note DATE: 11/18/18 TIME: 12:43 Exam/Review of Systems Exam Vitals Vital Signs Date Temp Pulse Resp B/P (MAP) Pulse Ox O2 O2 Flow FiO2 Time Delivery Rate 11/18/18 98.8 98 18 99/56 (70) 96 Room Air 08:01 Intake and Output 11/17/18 11/17/18 11/18/18 1515:00 23:00 07:00 IntakeIntake Total 1200 ml 1200 ml OutputOutput Total 50 ml 50 ml BalanceBalance -50 ml 1150 ml 1200 ml Results Result Diagram: 11/18/18 0536 11/18/18 0536 Results 24hrs Laboratory Tests Test 11/18/18 05:36 White Blood Count 16.2 H Red Blood Count 3.24 L Hemoglobin 7.4 L Hematocrit 25.2 L Mean Corpuscular Volume 77.8 L Mean Corpuscular Hemoglobin 22.8 L Mean Corpuscular Hemoglobin Concent 29.4 L Red Cell Distribution Width 21.9 H Platelet Count 820 H Mean Platelet Volume 10.1 Immature Granulocytes % 5.100 H Neutrophils % 69.6 Lymphocytes % 16.7 Monocytes % 6.5 Eosinophils % 1.2 Basophils % 0.9 Nucleated Red Blood Cells % 0.2 H Immature Granulocytes # 0.830 H Neutrophils # 11.3 H Lymphocytes # 2.7 Monocytes # 1.1 H Eosinophils # 0.2 Basophils # 0.1 Nucleated Red Blood Cells # 0.0 Sodium Level 134 L Potassium Level 4.0 Chloride Level 98 Carbon Dioxide Level 31 Anion Gap 5 Blood Urea Nitrogen 8 Creatinine 0.71 Est Glomerular Filtrat Rate mL/min > 60 Glucose Level 125 Calcium Level 8.4 Medications Medication Current Medications Ondansetron HCl (Zofran Inj) 4 mg Q6H PRN IV NAUSEA AND/OR VOMITING Last administered on 11/18/18 02:18; Admin Dose 4 MG; Start 11/06/18 at 01:30 Ipratropium [place] (Atrovent 0.02% (Neb)) 0.5 mg Q2H RESP THERAPY PRN NEB SHORTNESS OF BREATH; Start 11/06/18 at 01:30 Acetaminophen (Tylenol Liquid) 650 mg Q6H PRN PO PAIN LEVEL 1-3 OR FEVER; Start 11/06/18 at 01:30 Docusate Sodium (Colace) 100 mg Q12H PRN PO CONSTIPATION Last administered on 11/08/18 17:32; Admin Dose 100 MG; Start 11/06/18 at 01:30 Bisacodyl (Dulcolax) 5 mg DAILY PRN PO CONSTIPATION Last administered on 11/08/18 17:32; Admin Dose 5 MG; Start 11/06/18 at 01:30 Hydromorphone HCl (Dilaudid) 4 mg Q4H PRN PO MODERATE PAIN LEVEL 4-6 Last administered on 11/17/18 19:32; Admin Dose 4 MG; Start 11/07/18 at 22:29 Famotidine (Pepcid) 20 mg BID PO Last administered on 11/18/18 08:48; Admin Dose 20 MG; Start 11/08/18 at 21:00 Apixaban (Eliquis) 5 mg BID PO Last administered on 11/18/18 08:48; Admin Dose 5 MG; Start 11/11/18 at 09:30 Lorazepam (Ativan) 1 mg Q6H PRN IV ANXIETY; Start 11/12/18 at 02:30 Levofloxacin (Levaquin) 750 mg DAILY@06 NGT Last administered on 11/18/18 05:43; Admin Dose 750 MG; Start 11/13/18 at 11:30 Doxycycline Hyclate (Vibramycin) 100 mg DAILY PO Last administered on 4/4/19at 08:48; Admin Dose 100 MG; Start 11/14/18 at 21:00 Hydromorphone HCl (Dilaudid) 2 mg Q4H PRN IV with dressing changes Last administered on 11/18/18at 10:53; Admin Dose 2 MG; Start 11/15/18 at 14:30 TIFFANIE DEVINE NP Nov 18, 2018 12:44
[2018-11-18 13:44] VITALS: BP 110/58; PULSE 95; RESP 18
--- NOTE | 2018-11-18 14:29 | PDOCDIS ---
Discharge Instructions DIAGNOSIS Discharge Diagnosis Acute right popliteal vein thrombosis Acute tibial artery occlusion with critical limb ischemia CONDITION [id number] Patient Condition: [id number] Fair HOME CARE INSTRUCTIONS: [id number] Diet Instructions: Pxyxy2f Regular ACTIVITY: [id number] Activity Restrictions: [id number] No Restrictions FOLLOW UP/APPOINTMENTS Follow-up Plan 1. Take all medications as prescribed. 2. Take tylenol or ibuprofen for pain. Take dilaudid for very severe pain. 3. See. Dr. Poe in clinic as scheduled. JUVE SOLIMAN MD Nov 18, 2018 14:29
--- NOTE | 2018-11-18 16:07 | PN ---
Date/Time of Note Date/Time of Note DATE: 11/18/18 TIME: 16:05 Assessment/Plan VTE Prophylaxis Risk score (from Nsg)>0 risk: 6 SCD applied (from Nsg): No SCD contraindicated: other (feet) Pharmacological prophylaxis: apixaban Lines/Catheters IV Catheter Type (from Nrsg): [place] Lock Urinary Cath still in place: No Assessment/Plan Assessment/Plan 38 yo woman no major PMH presents with RLE acute limb ischemia plus DVT. # Right lower extremity DVT with ischemia - Patient was found to have a right lower extremity DVT on ultrasound as well as arterial occlusion on CT imaging, s/p three compartment fasciotomy right calf, Norberto thrombectomy right posterior tibial artery by Dr. Poe (11/06). 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 -Continue Eliquis 5 mg twice daily as recommended by heme/onc team, monitor -Continue Dilaudid PO and IV for pain control, continue wound VAC -Follow-up recommendations from PT eval # Atrial septal defect- Patient has atrial septal defect as seen on echo with bubble 09/24/2018. -Appreciate cardiology consult, follow-up their further recommendations Dr. Melara - Patient will likely need prolonged anticoagulation for DVT anyway. So no shunt closure needed anytime soon. # Iron deficiency anemia- Ferritin deficient.-Patient received IV ferrlicit- Also postoperative bleeding, required PRBC transfusion 6 days ago -Hemoglobin presently stable, continue to monitor CBC daily # EULOGIO: Resolved likely secondary to hemodynamics, mild dehydration. -For now continue IV fluid hydration - Monitor renal function. Avoid nephrotoxic agents. # Prediabetes: Recent hemoglobin A1c 6.2, - encourage diet and lifestyle modification. - Monitor blood sugars while inpatient. # obesity: Encourage diet and exercise, patient has prediabetes please see #4. TSH was within normal values during previous admission. #Leukocytosis - On empiric levofloxacin Dispo: Medically stable for discharge home with wound vac and home health for wound care. Result Diagram: 11/18/1836 11/18/1836 Subjective 24 Hr Interval Summary Free Text/Dictation No acute overnight events. Patient feeling well. Exam/Review of Systems Exam Vitals Vital Signs Date Temp Pulse Resp B/P (MAP) Pulse Ox O2 O2 Flow FiO2 Time Delivery Rate 11/18/18 98.1 95 18 110/58 96 Room Air 13:44 (75) Intake and Output 11/17/18 11/17/18 11/18/18 1515:00 23:00 07:00 IntakeIntake Total 1200 ml 1200 ml OutputOutput Total 50 ml 50 ml BalanceBalance -50 ml 1150 ml 1200 ml Exam General: Well developed woman awake and alert, no distress HEENT: Atraumatic, normocephalic. Neck: Supple with full range of motion. No rigidity or meningismus Chest: Nontender Lungs: Clear to auscultation bilaterally no crackles rales or wheezing Heart: Sinus tachy, no murmurs Abdomen: Soft , nontender, nondistended. No guarding no rebound tenderness , Extremities: Right lower extremity: Wound VAC in place, slight positive DP pulse felt, warm. Left foot has + DP pulse and is warm. Results Results 24hrs Laboratory Tests Test 11/18/18 05:36 White Blood Count 16.2 H Red Blood Count 3.24 L Hemoglobin 7.4 L Hematocrit 25.2 L Mean Corpuscular Volume 77.8 L Mean Corpuscular Hemoglobin 22.8 L Mean Corpuscular Hemoglobin Concent 29.4 L Red Cell Distribution Width 21.9 H Platelet Count 820 H Mean Platelet Volume 10.1 Immature Granulocytes % 5.100 H Neutrophils % 69.6 Lymphocytes % 16.7 Monocytes % 6.5 Eosinophils % 1.2 Basophils % 0.9 Nucleated Red Blood Cells % 0.2 H Immature Granulocytes # 0.830 H Neutrophils # 11.3 H Lymphocytes # 2.7 Monocytes # 1.1 H Eosinophils # 0.2 Basophils # 0.1 Nucleated Red Blood Cells # 0.0 Sodium Level 134 L Potassium Level 4.0 Chloride Level 98 Carbon Dioxide Level 31 Anion Gap 5 Blood Urea Nitrogen 8 Creatinine 0.71 Est Glomerular Filtrat Rate mL/min > 60 Glucose Level 125 Calcium Level 8.4 Medications Medication Current Medications Ondansetron HCl (Zofran Inj) 4 mg Q6H PRN IV NAUSEA AND/OR VOMITING Last administered on 11/18/18at 02:18; Admin Dose 4 MG; Start 11/06/18 at 01:30 Ipratropium [place] (Atrovent 0.02% (Neb)) 0.5 mg Q2H RESP THERAPY PRN NEB SHORTNESS OF BREATH; Start 11/06/18 at 01:30 Acetaminophen (Tylenol Liquid) 650 mg Q6H PRN PO PAIN LEVEL 1-3 OR FEVER; Start 11/06/18 at 01:30 Docusate Sodium (Colace) 100 mg Q12H PRN PO CONSTIPATION Last administered on 11/08/18 17:32; Admin Dose 100 MG; Start 11/06/18 at 01:30 Bisacodyl (Dulcolax) 5 mg DAILY PRN PO CONSTIPATION Last administered on 11/08/18 17:32; Admin Dose 5 MG; Start 11/06/18 at 01:30 Hydromorphone HCl (Dilaudid) 4 mg Q4H PRN PO MODERATE PAIN LEVEL 4-6 Last administered on 11/17/18 19:32; Admin Dose 4 MG; Start 11/07/18 at 22:29 Famotidine (Pepcid) 20 mg BID PO Last administered on 11/18/18 08:48; Admin D ose 20 MG; Start 11/08/18 at 21:00 Apixaban (Eliquis) 5 mg BID PO Last administered on 11/18/18 08:48; Admin Dose 5 MG; Start 11/11/18 at 09:30 Lorazepam (Ativan) 1 mg Q6H PRN IV ANXIETY; Start 11/12/18 at 02:30 Hydromorphone HCl (Dilaudid) 2 mg Q4H PRN IV with dressing changes Last administered on 11/18/18 15:14; Admin Dose 2 MG; Start 11/15/18 at 14:30 JUVE SOLIMAN MD Nov 18, 2018 16:07
[2018-11-18 17:13] VITALS: Ht 160 cm; Wt 61.4 kg
--- NOTE | 2018-11-18 18:25 | CONS ---
Assessment/Plan Assessment/Plan Hospital Course (Demo Recall) IMPRESSION: 1. Acute arterial insufficiency.-s/p open thrombectomy. Per vascular not felt to be due to embolic mechanism 2. Lower extremity deep venous thrombosis in the right lower extremity. 3. Sinus tachycardia in the setting the patient just had surgery with significant lower extremity pain. 4. History of prior transient ischemic attack. 5. History of possible right to left shunt at level of interatrial septum or atrial septal defect, most commonly patent foramen ovale. 6. Anemia, worsening. 7. Leukocytosis. 8. Rhabdomyolysis. 9. Tachycardia-s tach mild to low 100's. Likely due to pain Recc: -Tele -Pain control -Continue anticoagulation now with apixaban -local wound care -would evaluate interatrial septum with LUÍS at later date when has recovered from current surgery Consultation Date/Type/Reason Admit Date/Time Nov 06, 2018 at 01:33 Initial Consult Date 01/07/19 Type of Consult Cardiology Reason for Consultation ASD Requesting Provider: JUVE SOLIMAN MD Date/Time of Note DATE: 11/18/18 TIME: 18:23 Exam/Review of Systems Vital Signs Vitals Vital Signs Date Temp Pulse Resp B/P (MAP) Pulse Ox O2 O2 Flow FiO2 Time Delivery Rate 11/18/18 98.1 95 18 110/58 96 Room Air 13:44 (75) Intake and Output 11/17/18 11/17/18 11/18/18 1414:59 22:59 06:59 IntakeIntake Total 1200 ml 1200 ml OutputOutput Total 50 ml 50 ml BalanceBalance -50 ml 1150 ml 1200 ml Exam Exam Review of Systems: CONSTITUTIONAL: No fevers, chills. PULMONARY: No sob CARDIOVASCULAR: No chest pain/palpitations GASTROINTESTINAL: No nausea/vomiting. GENITOURINARY: No hematuria/dysuria. MUSCULOSKELETAL: mild pain in leg PSYCHIATRIC: The patient denies depression. NEUROLOGIC: No weakness Constitutional: alert, oriented Psych: no complaints Head: normocephalic ENMT: mucosa pink and moist Neck: supple, jvd (9 cm water) Respiratory: clear to auscultation Cardiovascular: regular rate and rhythm Gastrointestinal: soft, non-tender Musculoskeletal: muscle tone (normal) Extremities: other (RLE swelling/covered by dressing) Neurological: other (No focal deficits) Labs Result Diagram: 11/18/18 0536 11/18/18 0536 Results 24hrs Laboratory Tests Test 11/18/18 05:36 White Blood Count 16.2 H Red Blood Count 3.24 L Hemoglobin 7.4 L Hematocrit 25.2 L Mean Corpuscular Volume 77.8 L Mean Corpuscular Hemoglobin 22.8 L Mean Corpuscular Hemoglobin Concent 29.4 L Red Cell Distribution Width 21.9 H Platelet Count 820 H Mean Platelet Volume 10.1 Immature Granulocytes % 5.100 H Neutrophils % 69.6 Lymphocytes % 16.7 Monocytes % 6.5 Eosinophils % 1.2 Basophils % 0.9 Nucleated Red Blood Cells % 0.2 H Immature Granulocytes # 0.830 H Neutrophils # 11.3 H Lymphocytes # 2.7 Monocytes # 1.1 H Eosinophils # 0.2 Basophils # 0.1 Nucleated Red Blood Cells # 0.0 Sodium Level 134 L Potassium Level 4.0 Chloride Level 98 Carbon Dioxide Level 31 Anion Gap 5 Blood Urea Nitrogen 8 Creatinine 0.71 Est Glomerular Filtrat Rate mL/min > 60 Glucose Level 125 Calcium Level 8.4 Medications Medications Current Medications Ondansetron HCl (Zofran Inj) 4 mg Q6H PRN IV NAUSEA AND/OR VOMITING Last administered on 11/18/18 02:18; Admin Dose 4 MG; Start 11/06/18 at 01:30 Ipratropium [place] (Atrovent 0.02% (Neb)) 0.5 mg Q2H RESP THERAPY PRN NEB SHORTNESS OF BREATH; Start 11/06/18 at 01:30 Acetaminophen (Tylenol Liquid) 650 mg Q6H PRN PO PAIN LEVEL 1-3 OR FEVER; Start 11/06/18 at 01:30 Docusate Sodium (Colace) 100 mg Q12H PRN PO CONSTIPATION Last administered on 11/08/18 17:32; Admin Dose 100 MG; Start 11/06/18 at 01:30 Bisacodyl (Dulcolax) 5 mg DAILY PRN PO CONSTIPATION Last administered on 11/08/18 17:32; Admin Dose 5 MG; Start 11/06/18 at 01:30 Hydromorphone HCl (Dilaudid) 4 mg Q4H PRN PO MODERATE PAIN LEVEL 4-6 Last administered on 11/17/18 19:32; Admin Dose 4 MG; Start 11/07/18 at 22:29 Famotidine (Pepcid) 20 mg BID PO Last administered on 11/18/18 08:48; Admin Dose 20 MG; Start 11/08/18 at 21:00 Apixaban (Eliquis) 5 mg BID PO Last administered on 11/18/18at 08:48; Admin Dose 5 MG; Start 11/11/18 at 09:30 Lorazepam (Ativan) 1 mg Q6H PRN IV ANXIETY; Start 11/12/18 at 02:30 Hydromorphone HCl (Dilaudid) 2 mg Q4H PRN IV with dressing changes Last administered on 11/18/18at 15:14; Admin Dose 2 MG; Start 11/15/18 at 14:30 JUVE POWELL Nov 18, 2018 18:25
[2018-11-18 20:04] VITALS: BP 110/53; PULSE 103; RESP 20
[2018-11-19] MEDS: HYDROmorphONE 2 MG/ML SYG IV PRN ×4 (00:02→11:41)
[2018-11-19 02:18] VITALS: BP 118/57; PULSE 99; RESP 17
[2018-11-19] MEDS: ONDANSETRON 4 MG INJ IV PRN (03:17)
[2018-11-19 08:00] VITALS: BP 159/76; PULSE 80; RESP 18
[2018-11-19] MEDS: APIXABAN 5 MG TABLET PO SCH ×2 (08:28→21:14)
[2018-11-19] MEDS: FAMOTIDINE 20 MG TAB PO SCH ×2 (08:28→21:14)
--- NOTE | 2018-11-19 13:36 | PN ---
Date/Time of Note Date/Time of Note DATE: 11/19/18 TIME: 13:33 Assessment/Plan VTE Prophylaxis Risk score (from Nsg)>0 risk: 6 SCD applied (from Ns): No SCD contraindicated: other (no) Pharmacological prophylaxis: apixaban Lines/Catheters IV Catheter Type (from Nrsg): Saline Lock Urinary Cath still in place: No Assessment/Plan Assessment/Plan 38 yo woman no major PMH presents with RLE acute limb ischemia plus DVT. # Right lower extremity DVT with ischemia - Patient was found to have a right lower extremity DVT on ultrasound as well as arterial occlusion on CT imaging, s/p three compartment fasciotomy right calf, Norberto thrombectomy right posterior tibial artery by Dr. Poe (11/06). 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 -Continue Eliquis 5 mg twice daily as recommended by heme/onc team, monitor -Continue Dilaudid PO and IV for pain control, continue wound VAC -Follow-up recommendations from PT eval # Atrial septal defect- Patient has atrial septal defect as seen on echo with bubble 09/24/2018. -Appreciate cardiology consult, follow-up their further recommendations Dr. Melara - Patient will likely need prolonged anticoagulation for DVT anyway. So no shunt closure needed anytime soon. # Iron deficiency anemia- Ferritin deficient.-Patient received IV ferrlicit- Also postoperative bleeding, required PRBC transfusion 6 days ago -Hemoglobin presently stable, continue to monitor CBC daily # EULOGIO: Resolved likely secondary to hemodynamics, mild dehydration. -For now continue IV fluid hydration - Monitor renal function. Avoid nephrotoxic agents. # Prediabetes: Recent hemoglobin A1c 6.2, - encourage diet and lifestyle modification. - Monitor blood sugars while inpatient. # obesity: Encourage diet and exercise, patient has prediabetes please see #4. TSH was within normal values during previous admission. #Leukocytosis - On empiric levofloxacin Dispo: Medically stable for discharge home with wound vac and home health for wound care. Result Diagram: 11/19/18 0454 11/19/18 0454 Subjective 24 Hr Interval Summary Free Text/Dictation No acute overnight events. She complaints of some numbness of the skin behind her L ear. Not associated with headache, pain, hearing loss or tinnitus or vertigo. Exam/Review of Systems Exam Vitals Vital Signs Date Temp Pulse Resp B/P (MAP) Pulse Ox O2 O2 Flow FiO2 Time Delivery Rate 11/19/18 98.6 80 18 159/76 96 08:00 (103) 11/18/18 Room Air 13:44 Intake and Output 11/18/18 11/18/18 11/19/18 1515:00 23:00 07:00 IntakeIntake Total 960 ml 300 ml 150 ml OutputOutput Total 500 ml 820 ml 680 ml BalanceBalance 460 ml -520 ml -530 ml Exam General: Well developed woman awake and alert, no distress HEENT: Atraumatic, normocephalic. Neck: Supple with full range of motion. No rigidity or meningismus Chest: Nontender Lungs: Clear to auscultation bilaterally no crackles rales or wheezing Heart: Sinus tachy, no murmurs Abdomen: Soft , nontender, nondistended. No guarding no rebound tenderness , Extremities: Right lower extremity: Wound VAC in place, slight positive DP pulse felt, warm. Left foot has + DP pulse and is warm. Results Results 24hrs Laboratory Tests Test 11/19/18 04:53 11/19/18 04:54 Albumin 2.7 L White Blood Count 13.6 H Red Blood Count 3.23 L Hemoglobin 7.4 L Hematocrit 25.0 L Mean Corpuscular Volume 77.4 L Mean Corpuscular Hemoglobin 22.9 L Mean Corpuscular Hemoglobin Concent 29.6 L Red Cell Distribution Width 22.1 H Platelet Count 845 H Mean Platelet Volume 9.9 Immature Granulocytes % 6.900 H Segmented Neutrophils % (Manual) 64 Band Neutrophils % (Manual) 3 Lymphocytes % (Manual) 19 Monocytes % (Manual) 4 Eosinophils % (Manual) 1 Basophils % (Manual) 2 Metamyelocytes % (manual) 6 H Myelocytes % (Manual) 1 H Nucleated Red Blood Cells % 0.3 H Immature Granulocytes # 0.940 H Neutrophils # (Manual) 8.8 H Band Neutrophils # 0.4 Lymphocytes (Manual) 2.5 Monocytes # (Manual) 0.5 Basophils # (Manual) 0.2 H Metamyelocytes # 0.8 H Myelocytes # 0.1 H Platelet Estimate INCREASED Polychromasia 3+ Hypochromasia 3+ Anisocytosis 2+ Microcytosis 2+ Sodium Level 134 L Potassium Level 3.9 Chloride Level 97 Carbon Dioxide Level 30 Anion Gap 7 Blood Urea Nitrogen 7 Creatinine 0.71 Est Glomerular Filtrat Rate mL/min > 60 Glucose Level 113 Calcium Level 8.3 L Medications Medication Current Medications Ipratropium [place] (Atrovent 0.02% (Neb)) 0.5 mg Q2H RESP THERAPY PRN NEB SHORTNESS OF BREATH; Start 11/06/18 at 01:30 Acetaminophen (Tylenol Liquid) 650 mg Q6H PRN PO PAIN LEVEL 1-3 OR FEVER; Start 11/06/18 at 01:30 Docusate Sodium (Colace) 100 mg Q12H PRN PO CONSTIPATION Last administered on 11/08/18 17:32; Admin Dose 100 MG; Start 11/06/18 at 01:30 Bisacodyl (Dulcolax) 5 mg DAILY PRN PO CONSTIPATION Last administered on 17:32; Admin Dose 5 MG; Start 11/06/18 at 01:30 Hydromorphone HCl (Dilaudid) 4 mg Q4H PRN PO MODERATE PAIN LEVEL 4-6 Last administered on 11/17/18 19:32; Admin Dose 4 MG; Start 11/07/18 at 22:29 Famotidine (Pepcid) 20 mg BID PO Last administered on 11/19/18 08:28; Admin Dose 20 MG; Start 11/08/18 at 21:00 Apixaban (Eliquis) 5 mg BID PO Last administered on 11/19/18 08:28; Admin Dose 5 MG; Start 11/11/18 at 09:30 Lorazepam (Ativan) 1 mg Q6H PRN IV ANXIETY; Start 11/12/18 at 02:30 Ondansetron HCl (Zofran Inj) 4 mg Q4H PRN IV NAUSEA AND/OR VOMITING Last administered on 11/19/18 03:17; Admin Dose 4 MG; Start 11/19/18 at 03:00 JUVE SOLIMAN MD Nov 19, 2018 13:36
[2018-11-19 14:00] VITALS: BP 118/77; PULSE 84; RESP 20
--- NOTE | 2018-11-19 14:16 | CONS ---
Assessment/Plan Assessment/Plan Hospital Course (Demo Recall) IMPRESSION: 1. Acute arterial insufficiency.-s/p open thrombectomy. Per vascular not felt to be due to embolic mechanism 2. Lower extremity deep venous thrombosis in the right lower extremity. 3. Sinus tachycardia in the setting the patient just had surgery with significant lower extremity pain. 4. History of prior transient ischemic attack. 5. History of possible right to left shunt at level of interatrial septum or atrial septal defect, most commonly patent foramen ovale. 6. Anemia, worsening. 7. Leukocytosis. 8. Rhabdomyolysis. 9. Tachycardia-s tach mild to low 100's. Likely due to pain Recc: -Tele -Pain control -Continue anticoagulation now with apixaban -local wound care -would consider evaluation interatrial septum with LUÍS at later date when has recovered from current surgery -PT eval? Consultation Date/Type/Reason Admit Date/Time Nov 06, 2018 at 01:33 Initial Consult Date 01/07/19 Type of Consult Cardiology Reason for Consultation ASD Requesting Provider: JUVE SOLIMAN MD Date/Time of Note DATE: 11/19/18 TIME: 14:14 Exam/Review of Systems Vital Signs Vitals Vital Signs Date Temp Pulse Resp B/P (MAP) Pulse Ox O2 O2 Flow FiO2 Time Delivery Rate 11/19/18 98.6 80 18 159/76 96 08:00 (103) 11/18/18 Room Air 13:44 Intake and Output 11/18/18 11/18/18 11/19/18 1414:59 22:59 06:59 IntakeIntake Total 960 ml 300 ml 150 ml OutputOutput Total 500 ml 820 ml 680 ml BalanceBalance 460 ml -520 ml -530 ml Exam Exam Review of Systems: CONSTITUTIONAL: No fevers, chills. PULMONARY: No sob CARDIOVASCULAR: No chest pain/palpitations GASTROINTESTINAL: No nausea/vomiting. GENITOURINARY: No hematuria/dysuria. MUSCULOSKELETAL:pain in leg PSYCHIATRIC: The patient denies depression. NEUROLOGIC: No weakness Constitutional: alert Psych: no complaints Head: normocephalic ENMT: mucosa pink and moist Neck: supple, jvd (9 cm water) Respiratory: clear to auscultation Cardiovascular: regular rate and rhythm Gastrointestinal: soft, non-tender Musculoskeletal: muscle tone (normal) Extremities: edema (covered by dressing) Neurological: other (No focal deficits) Labs Result Diagram: 11/19/18 0454 11/19/18 0454 Results 24hrs Laboratory Tests Test 11/19/18 04:53 11/19/18 04:54 Albumin 2.7 L White Blood Count 13.6 H Red Blood Count 3.23 L Hemoglobin 7.4 L Hematocrit 25.0 L Mean Corpuscular Volume 77.4 L Mean Corpuscular Hemoglobin 22.9 L Mean Corpuscular Hemoglobin Concent 29.6 L Red Cell Distribution Width 22.1 H Platelet Count 845 H Mean Platelet Volume 9.9 Immature Granulocytes % 6.900 H Segmented Neutrophils % (Manual) 64 Band Neutrophils % (Manual) 3 Lymphocytes % (Manual) 19 Monocytes % (Manual) 4 Eosinophils % (Manual) 1 Basophils % (Manual) 2 Metamyelocytes % (manual) 6 H Myelocytes % (Manual) 1 H Nucleated Red Blood Cells % 0.3 H Immature Granulocytes # 0.940 H Neutrophils # (Manual) 8.8 H Band Neutrophils # 0.4 Lymphocytes (Manual) 2.5 Monocytes # (Manual) 0.5 Basophils # (Manual) 0.2 H Metamyelocytes # 0.8 H Myelocytes # 0.1 H Platelet Estimate INCREASED Polychromasia 3+ Hypochromasia 3+ Anisocytosis 2+ Microcytosis 2+ Sodium Level 134 L Potassium Level 3.9 Chloride Level 97 Carbon Dioxide Level 30 Anion Gap 7 Blood Urea Nitrogen 7 Creatinine 0.71 Est Glomerular Filtrat Rate mL/min > 60 Glucose Level 113 Calcium Level 8.3 L Medications Medications Current Medications Ipratropium [place] (Atrovent 0.02% (Neb)) 0.5 mg Q2H RESP THERAPY PRN NEB SHORTNESS OF BREATH; Start 11/06/18 at 01:30 Acetaminophen (Tylenol Liquid) 650 mg Q6H PRN PO PAIN LEVEL 1-3 OR FEVER; Start 11/06/18 at 01:30 Docusate Sodium (Colace) 100 mg Q12H PRN PO CONSTIPATION Last administered on 11/08/18at 17:32; Admin Dose 100 MG; Start 11/06/18 at 01:30 Bisacodyl (Dulcolax) 5 mg DAILY PRN PO CONSTIPATION Last administered on 9at 17:32; Admin Dose 5 MG; Start 11/06/18 at 01:30 Hydromorphone HCl (Dilaudid) 4 mg Q4H PRN PO MODERATE PAIN LEVEL 4-6 Last administered on 11/17/18 19:32; Admin Dose 4 MG; Start 11/07/18 at 22:29 Famotidine (Pepcid) 20 mg BID PO Last administered on 11/19/18 08:28; Admin Dose 20 MG; Start 11/08/18 at 21:00 Apixaban (Eliquis) 5 mg BID PO Last administered on 11/19/18 08:28; Admin Dose 5 MG; Start 11/11/18 at 09:30 Lorazepam (Ativan) 1 mg Q6H PRN IV ANXIETY; Start 11/12/18 at 02:30 Ondansetron HCl (Zofran Inj) 4 mg Q4H PRN IV NAUSEA AND/OR VOMITING Last administered on 11/19/18 03:17; Admin Dose 4 MG; Start 11/19/18 at 03:00 JUVE POWELL Nov 19, 2018 14:16
--- NOTE | 2018-11-19 14:30 | CONS ---
Assessment/Plan Assessment/Plan Hospital Course (Demo Recall) Alert, feels good, no fevers Antimicrobials: none Physical examination: Obese well-developed middle-aged woman who is alert in no distress. Head atraumatic normocephalic. Neck is supple. Chest rise symmetrical breath sounds diminished bases. Heart: S1-S2. Abdomen soft bowel sounds present. Extremities without cyanosis. Right lower extremity has a wound VAC Assessment: 1. Systemic inflammatory response syndrome 2. Right lower extremity DVT with ischemic compartment syndrome, status post fasciotomy of the right calf 11/06/[address] Poe 3. Anemia 4. Obesity 5. Atrial septal defect Plan: Remains stable, off abx, continue present care reculture prn Consultation Date/Type/Reason Admit Date/Time Nov 06, 2018 at 01:33 Initial Consult Date 11/09/18 Type of Consult id Requesting Provider: JUVE SOLIMAN MD Date/Time of Note DATE: 11/19/18 TIME: 14:29 Exam/Review of Systems Exam Vitals Vital Signs Date Temp Pulse Resp B/P (MAP) Pulse Ox O2 O2 Flow FiO2 Time Delivery Rate 11/19/18 98.6 80 18 159/76 96 08:00 (103) 11/18/18 Room Air 13:44 Intake and Output 11/18/18 11/18/18 11/19/18 1515:00 23:00 07:00 IntakeIntake Total 960 ml 300 ml 150 ml OutputOutput Total 500 ml 820 ml 680 ml BalanceBalance 460 ml -520 ml -530 ml Results Result Diagram: 11/19/18 0454 11/19/18 0454 Results 24hrs Laboratory Tests Test 11/19/18 04:53 11/19/18 04:54 Albumin 2.7 L White Blood Count 13.6 H Red Blood Count 3.23 L Hemoglobin 7.4 L Hematocrit 25.0 L Mean Corpuscular Volume 77.4 L Mean Corpuscular Hemoglobin 22.9 L Mean Corpuscular Hemoglobin Concent 29.6 L Red Cell Distribution Width 22.1 H Platelet Count 845 H Mean Platelet Volume 9.9 Immature Granulocytes % 6.900 H Segmented Neutrophils % (Manual) 64 Band Neutrophils % (Manual) 3 Lymphocytes % (Manual) 19 Monocytes % (Manual) 4 Eosinophils % (Manual) 1 Basophils % (Manual) 2 Metamyelocytes % (manual) 6 H Myelocytes % (Manual) 1 H Nucleated Red Blood Cells % 0.3 H Immature Granulocytes # 0.940 H Neutrophils # (Manual) 8.8 H Band Neutrophils # 0.4 Lymphocytes (Manual) 2.5 Monocytes # (Manual) 0.5 Basophils # (Manual) 0.2 H Metamyelocytes # 0.8 H Myelocytes # 0.1 H Platelet Estimate INCREASED Polychromasia 3+ Hypochromasia 3+ Anisocytosis 2+ Microcytosis 2+ Sodium Level 134 L Potassium Level 3.9 Chloride Level 97 Carbon Dioxide Level 30 Anion Gap 7 Blood Urea Nitrogen 7 Creatinine 0.71 Est Glomerular Filtrat Rate mL/min > 60 Glucose Level 113 Calcium Level 8.3 L Medications Medication Current Medications Ipratropium [place] (Atrovent 0.02% (Neb)) 0.5 mg Q2H RESP THERAPY PRN NEB SHORTNESS OF BREATH; Start 11/06/18 at 01:30 Acetaminophen (Tylenol Liquid) 650 mg Q6H PRN PO PAIN LEVEL 1-3 OR FEVER; Start 11/06/18 at 01:30 Docusate Sodium (Colace) 100 mg Q12H PRN PO CONSTIPATION Last administered on 11/08/18 17:32; Admin Dose 100 MG; Start 11/06/18 at 01:30 Bisacodyl (Dulcolax) 5 mg DAILY PRN PO CONSTIPATION Last administered on 11/08/18 17:32; Admin Dose 5 MG; Start 11/06/18 at 01:30 Hydromorphone HCl (Dilaudid) 4 mg Q4H PRN PO MODERATE PAIN LEVEL 4-6 Last administered on 11/17/18 19:32; Admin Dose 4 MG; Start 11/07/18 at 22:29 Famotidine (Pepcid) 20 mg BID PO Last administered on 11/19/18 08:28; Admin Dose 20 MG; Start 11/08/18 at 21:00 Apixaban (Eliquis) 5 mg BID PO Last administered on 11/19/18 08:28; Admin Dose 5 MG; Start 11/11/18 at 09:30 Lorazepam (Ativan) 1 mg Q6H PRN IV ANXIETY; Start 11/12/18 at 02:30 Ondansetron HCl (Zofran Inj) 4 mg Q4H PRN IV NAUSEA AND/OR VOMITING Last administered on 11/19/18at 03:17; Admin Dose 4 MG; Start 11/19/18 at 03:00 TIFFANIE DEVINE NP Nov 19, 2018 14:30
[2018-11-19] MEDS: HYDROmorphONE 2 MG TAB PO PRN ×2 (15:06→19:09)
[2018-11-19 20:33] VITALS: BP 102/61; PULSE 109; RESP 18
[2018-11-19] MEDS ORDERED: HYDROmorphONE 1 MG/ML SYG IV ONE (21:30)
[2018-11-20 03:08] VITALS: BP 99/64; PULSE 99; RESP 20
[2018-11-20] MEDS: HYDROmorphONE 2 MG TAB PO PRN ×5 (04:59→22:20)
[2018-11-20 07:20] VITALS: BP 90/55; PULSE 85; RESP 16
[2018-11-20] MEDS ORDERED: SOD FERRIC GLUC COMPLX 125 MG in SOD CHLORIDE 0.9% 100 ML IVPB ONE (09:00)
[2018-11-20] MEDS: FAMOTIDINE 20 MG TAB PO SCH ×2 (09:16→20:23)
[2018-11-20] MEDS: APIXABAN 5 MG TABLET PO SCH ×2 (09:43→20:23)
--- NOTE | 2018-11-20 14:12 | PN ---
Date/Time of Note Date/Time of Note DATE: 11/20/18 TIME: 14:08 Assessment/Plan VTE Prophylaxis Risk score (from Nsg)>0 risk: 7 SCD applied (from Ns): No SCD contraindicated: other (surgery) Pharmacological prophylaxis: apixaban Lines/Catheters IV Catheter Type (from Nrsg): Saline Lock Urinary Cath still in place: No Assessment/Plan Assessment/Plan 38 yo woman no major PMH presents with RLE acute limb ischemia plus DVT. # Right lower extremity DVT with ischemia - Patient was found to have a right lower extremity DVT on ultrasound as well as arterial occlusion on CT imaging, s/p three compartment fasciotomy right calf, Norberto thrombectomy right posterior tibial artery by Dr. Poe (11/06). 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 -Continue Eliquis 5 mg twice daily as recommended by heme/onc team, monitor -I'm concerned about her continued reliance on high dose opioids even 2 weeks after surgery and I'm reluctant to increase the dose of her dilaudid. Will start ATC acetaminophen and will consider pain/palliative consult. -Follow-up recommendations from PT aguilar # Atrial septal defect- Patient has atrial septal defect as seen on echo with bubble 09/24/2018. -Appreciate cardiology consult, follow-up their further recommendations Dr. Melara - Patient will likely need prolonged anticoagulation for DVT anyway. So no shunt closure needed anytime soon. # Iron deficiency anemia- Ferritin deficient.-Patient received IV ferrlicit- Also postoperative bleeding, required PRBC transfusion 6 days ago -Hemoglobin presently stable, continue to monitor CBC daily # EULOGIO: Resolved likely secondary to hemodynamics, mild dehydration. -For now continue IV fluid hydration - Monitor renal function. Avoid nephrotoxic agents. # Prediabetes: Recent hemoglobin A1c 6.2, - encourage diet and lifestyle modification. - Monitor blood sugars while inpatient. # obesity: Encourage diet and exercise, patient has prediabetes please see #4. TSH was within normal values during previous admission. #Leukocytosis - On empiric levofloxacin Result Diagram: 11/20/18 0454 11/20/18 0454 Subjective 24 Hr Interval Summary Free Text/Dictation Stopped IV dilaudid yesterday. Today she reports poorly controlled pain even after 4mg PO dilaudid. Exam/Review of Systems Exam Vitals Vital Signs Date Temp Pulse Resp B/P (MAP) Pulse Ox O2 O2 Flow FiO2 Time Delivery Rate 11/20/18 98.3 85 16 90/55 (67) 96 Room Air 07:20 Intake and Output 11/19/18 11/19/18 11/20/18 1414:59 22:59 06:59 IntakeIntake Total 590 ml 420 ml OutputOutput Total 110 ml 300 ml BalanceBalance 590 ml -110 ml 120 ml Exam General: Well developed woman awake and alert, no distress HEENT: Atraumatic, normocephalic. Neck: Supple with full range of motion. No rigidity or meningismus Chest: Nontender Lungs: Clear to auscultation bilaterally no crackles rales or wheezing Heart: Sinus tachy, no murmurs Abdomen: Soft , nontender, nondistended. No guarding no rebound tenderness , Extremities: Right lower extremity: Wound VAC in place, slight positive DP pulse felt, warm. Left foot has + DP pulse and is warm. Results Results 24hrs Laboratory Tests Test 11/20/18 04:54 White Blood Count 12.7 H Red Blood Count 3.22 L Hemoglobin 7.2 L Hematocrit 24.9 L Mean Corpuscular Volume 77.3 L Mean Corpuscular Hemoglobin 22.4 L Mean Corpuscular Hemoglobin Concent 28.9 L Red Cell Distribution Width 22.0 H Platelet Count 861 H Mean Platelet Volume 9.5 Immature Granulocytes % 5.700 H Neutrophils % Segmented Neutrophils % (Manual) 66 Band Neutrophils % (Manual) 5 H Lymphocytes % Lymphocytes % (Manual) 19 Monocytes % Monocytes % (Manual) 3 Eosinophils % Eosinophils % (Manual) 1 Basophils % Metamyelocytes % (manual) 3 H Myelocytes % (Manual) 3 H Nucleated Red Blood Cells % 0.2 H Immature Granulocytes # 0.720 H Neutrophils # Neutrophils # (Manual) 8.5 H Band Neutrophils # 0.6 Lymphocytes (Manual) 2.4 Lymphocytes # Monocytes # Monocytes # (Manual) 0.3 Eosinophils # Basophils # Metamyelocytes # 0.3 H Myelocytes # 0.3 H Nucleated Red Blood Cells # Platelet Estimate INCREASED Polychromasia 2+ Hypochromasia 2+ Anisocytosis 2+ Microcytosis 2+ Ovalocytes 1+ Sodium Level 136 Potassium Level 4.3 Chloride Level 98 Carbon Dioxide Level 32 H Anion Gap 6 Blood Urea Nitrogen 9 Creatinine 0.66 Est Glomerular Filtrat Rate mL/min > 60 Glucose Level 120 Calcium Level 8.5 Medications Medication Current Medications Ipratropium [place] (Atrovent 0.02% (Neb)) 0.5 mg Q2H RESP THERAPY PRN NEB SHORTNESS OF BREATH; Start 11/06/18 at 01:30 Acetaminophen (Tylenol Liquid) 650 mg Q6H PRN PO PAIN LEVEL 1-3 OR FEVER; Start 11/06/18 at 01:30 Docusate Sodium (Colace) 100 mg Q12H PRN PO CONSTIPATION Last administered on 11/08/18 17:32; Admin Dose 100 MG; Start 11/06/18 at 01:30 Bisacodyl (Dulcolax) 5 mg DAILY PRN PO CONSTIPATION Last administered on 11/08/18 17:32; Admin Dose 5 MG; Start 11/06/18 at 01:30 Hydromorphone HCl (Dilaudid) 4 mg Q4H PRN PO MODERATE PAIN LEVEL 4-6 Last administered on 11/20/18 13:31; Admin Dose 4 MG; Start 11/07/18 at 22:29 Famotidine (Pepcid) 20 mg BID PO Last administered on 11/20/18 09:16; Admin Dose 20 MG; Start 11/08/18 at 21:00 Apixaban (Eliquis) 5 mg BID PO Last administered on 11/20/18 09:43; Admin Dose 5 MG; Start 11/11/18 at 09:30 Lorazepam (Ativan) 1 mg Q6H PRN IV ANXIETY; Start 11/12/18 at 02:30 Ondansetron HCl (Zofran Inj) 4 mg Q4H PRN IV NAUSEA AND/OR VOMITING Last administered on 11/19/18 03:17; Admin Dose 4 MG; Start 11/19/18 at 03:00 JUVE SOLIMAN MD Nov 20, 2018 14:12
--- NOTE | 2018-11-20 14:47 | CONS ---
Assessment/Plan Assessment/Plan Hospital Course (Demo Recall) No acute changes, alert, feels good Antimicrobials: none Physical examination: Obese well-developed middle-aged woman who is alert in no distress. Head atraumatic normocephalic. Neck is supple. Chest rise symmetrical breath sounds diminished bases. Heart: S1-S2. Abdomen soft b owel sounds present. Extremities without cyanosis. Right lower extremity has a wound VAC Assessment: 1. Systemic inflammatory response syndrome 2. Right lower extremity DVT with ischemic compartment syndrome, status post fasciotomy of the right calf 11/06/[address] Poe 3. Anemia 4. Obesity 5. Atrial septal defect Plan: Off abx, continue present care, dc arrangements Consultation Date/Type/Reason Admit Date/Time Nov 06, 2018 at 01:33 Initial Consult Date 11/09/18 Type of Consult id Requesting Provider: JUVE SOLIMAN MD Date/Time of Note DATE: 11/20/18 TIME: 14:47 Exam/Review of Systems Exam Vitals Vital Signs Date Temp Pulse Resp B/P (MAP) Pulse Ox O2 O2 Flow FiO2 Time Delivery Rate 11/20/18 98.3 85 16 90/55 (67) 96 Room Air 07:20 Intake and Output 11/19/18 11/19/18 11/20/18 1515:00 23:00 07:00 IntakeIntake Total 590 ml 420 ml OutputOutput Total 110 ml 300 ml BalanceBalance 590 ml -110 ml 120 ml Results Result Diagram: 11/20/18 0454 11/20/18 0454 Results 24hrs Laboratory Tests Test 11/20/18 04:54 White Blood Count 12.7 H Red Blood Count 3.22 L Hemoglobin 7.2 L Hematocrit 24.9 L Mean Corpuscular Volume 77.3 L Mean Corpuscular Hemoglobin 22.4 L Mean Corpuscular Hemoglobin Concent 28.9 L Red Cell Distribution Width 22.0 H Platelet Count 861 H Mean Platelet Volume 9.5 Immature Granulocytes % 5.700 H Neutrophils % Segmented Neutrophils % (Manual) 66 Band Neutrophils % (Manual) 5 H Lymphocytes % Lymphocytes % (Manual) 19 Monocytes % Monocytes % (Manual) 3 Eosinophils % Eosinophils % (Manual) 1 Basophils % Metamyelocytes % (manual) 3 H Myelocytes % (Manual) 3 H Nucleated Red Blood Cells % 0.2 H Immature Granulocytes # 0.720 H Neutrophils # Neutrophils # (Manual) 8.5 H Band Neutrophils # 0.6 Lymphocytes (Manual) 2.4 Lymphocytes # Monocytes # Monocytes # (Manual) 0.3 Eosinophils # Basophils # Metamyelocytes # 0.3 H Myelocytes # 0.3 H Nucleated Red Blood Cells # Platelet Estimate INCREASED Polychromasia 2+ Hypochromasia 2+ Anisocytosis 2+ Microcytosis 2+ Ovalocytes 1+ Sodium Level 136 Potassium Level 4.3 Chloride Level 98 Carbon Dioxide Level 32 H Anion Gap 6 Blood Urea Nitrogen 9 Creatinine 0.66 Est Glomerular Filtrat Rate mL/min > 60 Glucose Level 120 Calcium Level 8.5 Medications Medication Current Medications Ipratropium [place] (Atrovent 0.02% (Neb)) 0.5 mg Q2H RESP THERAPY PRN NEB SHORTNESS OF BREATH; Start 11/06/18 at 01:30 Acetaminophen (Tylenol Liquid) 650 mg Q6H PRN PO PAIN LEVEL 1-3 OR FEVER; Start 11/06/18 at 01:30 Docusate Sodium (Colace) 100 mg Q12H PRN PO CONSTIPATION Last administered on 11/08/18 17:32; Admin Dose 100 MG; Start 11/06/18 at 01:30 Bisacodyl (Dulcolax) 5 mg DAILY PRN PO CONSTIPATION Last administered on 11/08/18 17:32; Admin Dose 5 MG; Start 11/06/18 at 01:30 Hydromorphone HCl (Dilaudid) 4 mg Q4H PRN PO MODERATE PAIN LEVEL 4-6 Last administered on 11/20/18 13:31; Admin Dose 4 MG; Start 11/07/18 at 22:29 Famotidine (Pepcid) 20 mg BID PO Last administered on 11/20/18 09:16; Admin Dose 20 MG; Start 11/08/18 at 21:00 Apixaban (Eliquis) 5 mg BID PO Last administered on 11/20/18 09:43; Admin Dose 5 MG; Start 11/11/18 at 09:30 Lorazepam (Ativan) 1 mg Q6H PRN IV ANXIETY; Start 11/12/18 at 02:30 Ondansetron HCl (Zofran Inj) 4 mg Q4H PRN IV NAUSEA AND/OR VOMITING Last adm inistered on 4/5/19at 03:17; Admin Dose 4 MG; Start 11/19/18 at 03:00 Acetaminophen (Tylenol Tab) 650 mg Q6H PO ; Start 11/20/18 at 14:30 TIFFANIE DEVINE NP Nov 20, 2018 14:47
[2018-11-20] MEDS: ACETAMINOPHEN 325 MG TAB PO SCH ×2 (14:55→20:22)
--- NOTE | 2018-11-20 15:18 | CONS ---
Assessment/Plan Assessment/Plan Assessment/Plan (Daily) 38 yo F with no PMH with previous history of TIA vs conversion disorder causing right sided paralysis that was resolving presented with unprovoked massive RLE DVT which caused compartment syndrome and decreased pulses s/p three compartment fasciotomy right calf, Norberto thrombectomy right posterior tibial artery and now on anticoagulation. # RLE unprovoked DVT -Patient is now on eliquis -She needs a total of treatment for at least three months of anticoagulation -In terms of hypercoagulable workup, patient can have full workup done after 3 months in outpatient. Labs done now will have false positivity and skew results due to active surgery and clotting. -Patient may have had a state of decreased movement prior as she was hospitalized for paralysis that is still not very well explained. -No family history of clotting disorder makes it unlikely it is genetic but will check in outpatient setting. # Anemia - Hgb 7.2 today - Got IV iron x 1 today - FU CBC am Patient seen in collaboration with Dr Gonzalez Consultation Date/Type/Reason Admit Date/Time Nov 06, 2018 at 01:33 Initial Consult Date 11/09/18 Type of Consult Oncology Requesting Provider: JUVE SOLIMAN MD Date/Time of Note DATE: 11/20/18 TIME: 15:14 24 HR Interval Summary Free Text/Dictation c/o RLE pain RLE - WOUND VAC intact; scant serosanguineous drainage noted-staff has notified surgeon Got IV iron per PMD x 1 today dw staff Detailed Summary Eyes: no complaints ENT: no complaints Respiratory: no complaints Cardiovascular: no complaints Gastrointestinal: no complaints Genitourinary: no complaints Musculoskeletal: other (RLE - WOUND VAC intact; scant sereosanginus ) Skin: no complaints Neurologic: no complaints Endocrine: no complaints Psychological: nl mood/affect Immunologic: no complaints Exam/Review of Systems Exam Vitals Vital Signs Date Temp Pulse Resp B/P (MAP) Pulse Ox O2 O2 Flow FiO2 Time Delivery Rate 11/20/18 98.3 85 16 90/55 (67) 96 Room Air 07:20 Intake and Output 11/19/18 11/19/18 11/20/18 1515:00 23:00 07:00 IntakeIntake Total 590 ml 420 ml OutputOutput Total 110 ml 300 ml BalanceBalance 590 ml -110 ml 120 ml Constitutional: alert, well developed Psych: nl mood/affect Head: atraumatic Eyes: EOMI, nl lids, nl sclera ENMT: nl external ears & nose Neck: non-tender Respiratory: clear to auscultation Cardiovascular: nl pulses, other (s1s2) Gastrointestinal: soft, non-tender Musculoskeletal: nl extremities to inspection, other (RLE - WOUND VAC inact; scant serosanguineous dainage noted) Neurological: nl mental status, nl speech Skin: other Lymph: nontender Results Result Diagram: 11/20/18 0454 11/20/18 0454 Results 24hrs Laboratory Tests Test 11/20/18 04:54 White Blood Count 12.7 H Red Blood Count 3.22 L Hemoglobin 7.2 L Hematocrit 24.9 L Mean Corpuscular Volume 77.3 L Mean Corpuscular Hemoglobin 22.4 L Mean Corpuscular Hemoglobin Concent 28.9 L Red Cell Distribution Width 22.0 H Platelet Count 861 H Mean Platelet Volume 9.5 Immature Granulocytes % 5.700 H Neutrophils % Segmented Neutrophils % (Manual) 66 Band Neutrophils % (Manual) 5 H Lymphocytes % Lymphocytes % (Manual) 19 Monocytes % Monocytes % (Manual) 3 Eosinophils % Eosinophils % (Manual) 1 Basophils % Metamyelocytes % (manual) 3 H Myelocytes % (Manual) 3 H Nucleated Red Blood Cells % 0.2 H Immature Granulocytes # 0.720 H Neutrophils # Neutrophils # (Manual) 8.5 H Band Neutrophils # 0.6 Lymphocytes (Manual) 2.4 Lymphocytes # Monocytes # Monocytes # (Manual) 0.3 Eosinophils # Basophils # Metamyelocytes # 0.3 H Myelocytes # 0.3 H Nucleated Red Blood Cells # Platelet Estimate INCREASED Polychromasia 2+ Hypochromasia 2+ Anisocytosis 2+ Microcytosis 2+ Ovalocytes 1+ Sodium Level 136 Potassium Level 4.3 Chloride Level 98 Carbon Dioxide Level 32 H Anion Gap 6 Blood Urea Nitrogen 9 Creatinine 0.66 Est Glomerular Filtrat Rate mL/min > 60 Glucose Level 120 Calcium Level 8.5 Medications Medication Current Medications Ipratropium [place] (Atrovent 0.02% (Neb)) 0.5 mg Q2H RESP THERAPY PRN NEB SHORTNESS OF BREATH; Start 11/06/18 at 01:30 Acetaminophen (Tylenol Liquid) 650 mg Q6H PRN PO PAIN LEVEL 1-3 OR FEVER; Start 11/06/18 at 01:30 Docusate Sodium (Colace) 100 mg Q12H PRN PO CONSTIPATION Last administered on 11/08/18 17:32; Admin Dose 100 MG; Start 11/06/18 at 01:30 Bisacodyl (Dulcolax) 5 mg DAILY PRN PO CONSTIPATION Last administered on 11/08/18 17:32; Admin Dose 5 MG; Start 11/06/18 at 01:30 Hydromorphone HCl (Dilaudid) 4 mg Q4H PRN PO MODERATE PAIN LEVEL 4-6 Last administered on 11/20/18 13:31; Admin Dose 4 MG; Start 11/07/18 at 22:29 Famotidine (Pepcid) 20 mg BID PO Last administered on 11/20/18 09:16; Admin Dose 20 MG; Start 11/08/18 at 21:00 Apixaban (Eliquis) 5 mg BID PO Last administered on 11/20/18 09:43; Admin Dose 5 MG; Start 11/11/18 at 09:30 Lorazepam (Ativan) 1 mg Q6H PRN IV ANXIETY; Start 11/12/18 at 02:30 Ondansetron HCl (Zofran Inj) 4 mg Q4H PRN IV NAUSEA AND/OR VOMITING Last administered on 11/19/18 03:17; Admin Dose 4 MG; Start 11/19/18 at 03:00 Acetaminophen (Tylenol Tab) 650 mg Q6H PO Last administered on 11/20/18 14:55; Admin Dose 650 MG; Start 11/20/18 at 14:30 CHIN FOLEY Nov 20, 2018 15:18
[2018-11-20 15:21] VITALS: BP 99/55; PULSE 98; RESP 16
--- NOTE | 2018-11-20 16:17 | CONS ---
Assessment/Plan Assessment/Plan Hospital Course (Demo Recall) IMPRESSION: 1. Acute arterial insufficiency.-s/p open thrombectomy. Per vascular not felt to be due to embolic mechanism 2. Lower extremity deep venous thrombosis in the right lower extremity. 3. Sinus tachycardia in the setting the patient just had surgery with significant lower extremity pain. 4. History of prior transient ischemic attack. 5. History of possible right to left shunt at level of interatrial septum or atrial septal defect, most commonly patent foramen ovale. 6. Anemia, worsening. 7. Leukocytosis. 8. Rhabdomyolysis. 9. Tachycardia-s tach mild to low 100's. Likely due to pain Recc: -Tele -Pain control with patient still requiring high dose narcotics -Continue anticoagulation now with apixaban -local wound care -would consider evaluation interatrial septum with LUÍS at later date when has recovered from current surgery -PT ongoing Consultation Date/Type/Reason Admit Date/Time Nov 06, 2018 at 01:33 Initial Consult Date 01/07/19 Type of Consult Cardiology Reason for Consultation ASD Requesting Provider: JUVE SOLIMAN MD Date/Time of Note DATE: 11/20/18 TIME: 16:09 Exam/Review of Systems Vital Signs Vitals Vital Signs Date Temp Pulse Resp B/P (MAP) Pulse Ox O2 O2 Flow FiO2 Time Delivery Rate 11/20/18 98.4 98 16 99/55 (70) 100 Room Air 15:21 Intake and Output 11/19/18 11/19/18 11/20/18 1515:00 23:00 07:00 IntakeIntake Total 590 ml 420 ml OutputOutput Total 110 ml 300 ml BalanceBalance 590 ml -110 ml 120 ml Exam Exam Review of Systems: CONSTITUTIONAL: No fevers, chills. PULMONARY: No sob CARDIOVASCULAR: No chest pain/palpitations GASTROINTESTINAL: No nausea/vomiting. GENITOURINARY: No hematuria/dysuria. MUSCULOSKELETAL: No myagias/arthalgias. PSYCHIATRIC: The patient denies depression. NEUROLOGIC: No weakness Constitutional: alert Psych: no complaints Head: normocephalic ENMT: mucosa pink and moist Neck: supple, jvd (9 cm water) Respiratory: diminished breath sounds Cardiovascular: regular rate and rhythm Gastrointestinal: soft, non-tender Musculoskeletal: muscle tone (normal) Extremities: edema (none) Neurological: other (No focal deficits) Labs Result Diagram: 11/20/18 0454 11/20/18 0454 Results 24hrs Laboratory Tests Test 11/20/18 04:54 White Blood Count 12.7 H Red Blood Count 3.22 L Hemoglobin 7.2 L Hematocrit 24.9 L Mean Corpuscular Volume 77.3 L Mean Corpuscular Hemoglobin 22.4 L Mean Corpuscular Hemoglobin Concent 28.9 L Red Cell Distribution Width 22.0 H Platelet Count 861 H Mean Platelet Volume 9.5 Immature Granulocytes % 5.700 H Neutrophils % Segmented Neutrophils % (Manual) 66 Band Neutrophils % (Manual) 5 H Lymphocytes % Lymphocytes % (Manual) 19 Monocytes % Monocytes % (Manual) 3 Eosinophils % Eosinophils % (Manual) 1 Basophils % Metamyelocytes % (manual) 3 H Myelocytes % (Manual) 3 H Nucleated Red Blood Cells % 0.2 H Immature Granulocytes # 0.720 H Neutrophils # Neutrophils # (Manual) 8.5 H Band Neutrophils # 0.6 Lymphocytes (Manual) 2.4 Lymphocytes # Monocytes # Monocytes # (Manual) 0.3 Eosinophils # Basophils # Metamyelocytes # 0.3 H Myelocytes # 0.3 H Nucleated Red Blood Cells # Platelet Estimate INCREASED Polychromasia 2+ Hypochromasia 2+ Anisocytosis 2+ Microcytosis 2+ Ovalocytes 1+ Sodium Level 136 Potassium Level 4.3 Chloride Level 98 Carbon Dioxide Level 32 H Anion Gap 6 Blood Urea Nitrogen 9 Creatinine 0.66 Est Glomerular Filtrat Rate mL/min > 60 Glucose Level 120 Calcium Level 8.5 Medications Medications Current Medications Ipratropium [place] (Atrovent 0.02% (Neb)) 0.5 mg Q2H RESP THERAPY PRN NEB SHORTNESS OF BREATH; Start 11/06/18 at 01:30 Acetaminophen (Tylenol Liquid) 650 mg Q6H PRN PO PAIN LEVEL 1-3 OR FEVER; Start 11/06/18 at 01:30 Docusate Sodium (Colace) 100 mg Q12H PRN PO CONSTIPATION Last administered on 11/08/18at 17:32; Admin Dose 100 MG; Start 11/06/18 at 01:30 Bisacodyl (Dulcolax) 5 mg DAILY PRN PO CONSTIPATION Last administered on 11/08/18at 17:32; Admin Dose 5 MG; Start 11/06/18 at 01:30 Hydromorphone HCl (Dilaudid) 4 mg Q4H PRN PO MODERATE PAIN LEVEL 4-6 Last administered on 11/20/18 13:31; Admin Dose 4 MG; Start 11/07/18 at 22:29 Famotidine (Pepcid) 20 mg BID PO Last administered on 11/20/18 09:16; Admin Dose 20 MG; Start 11/08/18 at 21:00 Apixaban (Eliquis) 5 mg BID PO Last administered on 11/20/18 09:43; Admin Dose 5 MG; Start 11/11/18 at 09:30 Lorazepam (Ativan) 1 mg Q6H PRN IV ANXIETY; Start 11/12/18 at 02:30 Ondansetron HCl (Zofran Inj) 4 mg Q4H PRN IV NAUSEA AND/OR VOMITING Last administered on 11/19/18 03:17; Admin Dose 4 MG; Start 11/19/18 at 03:00 Acetaminophen (Tylenol Tab) 650 mg Q6H PO Last administered on 11/20/18at 14:55; Admin Dose 650 MG; Start 11/20/18 at 14:30 JUVE POWELL Nov 20, 2018 16:17
[2018-11-20 20:00] VITALS: BP 99/53; PULSE 94; RESP 18
[2018-11-21] MEDS: HYDROmorphONE 2 MG TAB PO PRN ×5 (00:33→20:37)
[2018-11-21 02:00] VITALS: BP 92/56; PULSE 89; RESP 19
[2018-11-21] MEDS: ACETAMINOPHEN 325 MG TAB PO SCH ×4 (03:05→20:38)
--- NOTE | 2018-11-21 05:20 | CONS ---
Assessment/Plan Assessment/Plan Assessment/Plan (Daily) 38 yo F with no PMH with previous history of TIA vs conversion disorder causing right sided paralysis that was resolving presented with unprovoked massive RLE DVT which caused compartment syndrome and decreased pulses s/p three compartment fasciotomy right calf, Norberto thrombectomy right posterior tibial artery and now on anticoagulation. # RLE unprovoked DVT -Patient is now on eliquis -She needs a total of treatment for at least three months of anticoagulation -In terms of hypercoagulable workup, patient can have full workup done after 3 months in outpatient. Labs done now will have false positivity and skew results due to active surgery and clotting. -Patient may have had a state of decreased movement prior as she was hospitalized for paralysis that is still not very well explained. -No family history of clotting disorder makes it unlikely it is genetic but will check in outpatient setting. # Anemia - Hgb 7.2 as of 11/20/18. no labs yet - Got IV iron x 1 yesterday Patient seen in collaboration with Dr Gonzalez Consultation Date/Type/Reason Admit Date/Time Nov 06, 2018 at 01:33 Initial Consult Date 11/09/18 Type of Consult Oncology Requesting Provider: JUVE SOLIMAN MD Date/Time of Note DATE: 11/21/18 TIME: 05:20 24 HR Interval Summary Free Text/Dictation denes any c/o RLE pain RLE - WOUND VAC intact; scant serosanguineous drainage noted-staff has notified surgeon SP IV iron x 1 yesterday dw staff Detailed Summary Eyes: no complaints ENT: no complaints Respiratory: no complaints Cardiovascular: no complaints Gastrointestinal: no complaints Genitourinary: no complaints Musculoskeletal: restricted range of motion Skin: no complaints Neurologic: no complaints Endocrine: no complaints Lymphatic: no complaints Psychological: nl mood/affect Exam/Review of Systems Exam Vitals Vital Signs Date Temp Pulse Resp B/P (MAP) Pulse Ox O2 O2 Flow FiO2 Time Delivery Rate 11/21/18 98.0 03:50 11/21/18 89 19 92/56 (68) 100 02:00 11/20/18 Room Air 15:21 Intake and Output 11/20/18 11/20/18 11/21/18 1515:00 23:00 07:00 IntakeIntake Total 850 ml 600 ml OutputOutput Total 600 ml 950 ml BalanceBalance 250 ml -350 ml Constitutional: alert, oriented, well developed Psych: nl mood/affect Eyes: nl sclera ENMT: nl external ears & nose Neck: non-tender Cardiovascular: nl pulses, other (s1s2) Gastrointestinal: soft, non-tender Musculoskeletal: other (RLE - WOUND VAC intact; scant serosanguineous drainage noted) Extremities: other (RLE - WOUND VAC intact; scant serosanguineous drainage noted) Neurological: nl mental status, nl speech Skin: other Lymph: nontender Results Result Diagram: 11/20/1845311/20/18453 Medications Medication Current Medications Ipratropium [place] (Atrovent 0.02% (Neb)) 0.5 mg Q2H RESP THERAPY PRN NEB SHORTNESS OF BREATH; Start 11/06/18 at 01:30 Acetaminophen (Tylenol Liquid) 650 mg Q6H PRN PO PAIN LEVEL 1-3 OR FEVER; Start 11/06/18 at 01:30 Docusate Sodium (Colace) 100 mg Q12H PRN PO CONSTIPATION Last administered on 11/08/18 17:32; Admin Dose 100 MG; Start 11/06/18 at 01:30 Bisacodyl (Dulcolax) 5 mg DAILY PRN PO CONSTIPATION Last administered on 11/08/18 17:32; Admin Dose 5 MG; Start 11/06/18 at 01:30 Hydromorphone HCl (Dilaudid) 4 mg Q4H PRN PO MODERATE PAIN LEVEL 4-6 Last administered on 11/21/18 02:21; Admin Dose 4 MG; Start 11/07/18 at 22:29 Famotidine (Pepcid) 20 mg BID PO Last administered on 11/20/18 20:23; Admin Dose 20 MG; Start 11/08/18 at 21:00 Apixaban (Eliquis) 5 mg BID PO Last administered on 11/20/18 20:23; Admin Dose 5 MG; Start 11/11/18 at 09:30 Lorazepam (Ativan) 1 mg Q6H PRN IV ANXIETY; Start 11/12/18 at 02:30 Ondansetron HCl (Zofran Inj) 4 mg Q4H PRN IV NAUSEA AND/OR VOMITING Last administered on 11/19/18at 03:17; Admin Dose 4 MG; Start 11/19/18 at 03:00 Acetaminophen (Tylenol Tab) 650 mg Q6H PO Last administered on 11/21/18at 03:05; Admin Dose 650 MG; Start 11/20/18 at 14:30 Multivitamins/ Minerals (Theragran-M) 1 tab DAILY PO ; Start 11/21/18 at 09:00 Ascorbic Acid (Vitamin C) 500 mg DAILY PO ; Start 11/21/18 at 09:00 CHIN FOLEY Nov 21, 2018 05:20
[2018-11-21 08:47] VITALS: BP 99/62; PULSE 89; RESP 17
[2018-11-21] MEDS: FAMOTIDINE 20 MG TAB PO SCH ×2 (08:48→22:06)
[2018-11-21] MEDS: MULTIVITAMINS/MINERALS TAB PO SCH (08:48)
[2018-11-21] MEDS: ASCORBIC ACID 500 MG TAB PO SCH (08:48)
[2018-11-21] MEDS: APIXABAN 5 MG TABLET PO SCH ×2 (08:48→20:38)
--- NOTE | 2018-11-21 13:17 | PN ---
Date/Time of Note Date/Time of Note DATE: 11/21/18 TIME: 13:14 Assessment/Plan VTE Prophylaxis Risk score (from Nsg)>0 risk: 7 SCD applied (from Nsg): No SCD contraindicated: other (no) Pharmacological prophylaxis: apixaban Lines/Catheters IV Catheter Type (from Nrsg): [place] Urinary Cath still in place: No Assessment/Plan Assessment/Plan 38 yo woman no major PMH presents with RLE acute limb ischemia plus DVT. # Right lower extremity DVT with ischemia - Patient was found to have a right lower extremity DVT on ultrasound as well as arterial occlusion on CT imaging, s/p three compartment fasciotomy right calf, Norberto thrombectomy right posterior tibial artery by Dr. Poe (11/06). 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 -Continue Eliquis 5 mg twice daily as recommended by heme/onc team, monitor - Pain adequately controlled on PO dilaudid and tylenol. Stopped IV dilaudid on 11/20. Tentatively plan to taper off oral opioids also. -Follow-up recommendations from PT eval # Atrial septal defect- Patient has atrial septal defect as seen on echo with bubble 09/24/2018. -Appreciate cardiology consult, follow-up their further recommendations Dr. Melara - Patient will likely need prolonged anticoagulation for DVT anyway. So no shunt closure needed anytime soon. # Iron deficiency anemia- Ferritin deficient.-Patient received IV ferrlicit- Also postoperative bleeding, required PRBC transfusion 6 days ago -Hemoglobin presently stable, continue to monitor CBC daily # EULOGIO: Resolved likely secondary to hemodynamics, mild dehydration. -For now continue IV fluid hydration - Monitor renal function. Avoid nephrotoxic agents. # Prediabetes: Recent hemoglobin A1c 6.2, - encourage diet and lifestyle modification. - Monitor blood sugars while inpatient. #Leukocytosis - On empiric levofloxacin Dispo: Medically clear for discharge pending home health and wound vac. According to home health agency though, they want albumin >3 to ensure her nutrition is optimized. Result Diagram: 11/21/18 0505 11/21/18 0505 Subjective 24 Hr Interval Summary Free Text/Dictation Pain appears better controlled today. Patient seen 3 hours after last dose of dilaudid talking on phone, comfortable appearing. Exam/Review of Systems Exam Vitals Vital Signs Date Temp Pulse Resp B/P (MAP) Pulse Ox O2 O2 Flow FiO2 Time Delivery Rate 11/21/18 98.0 89 17 99/62 (74) 100 Room Air 08:47 Intake and Output 11/20/18 11/20/18 11/21/18 1414:59 22:59 06:59 IntakeIntake Total 850 ml 600 ml OutputOutput Total 600 ml 950 ml 1000 ml BalanceBalance 250 ml -350 ml -1000 ml Exam General: Well developed woman awake and alert, no distress HEENT: Atraumatic, normocephalic. Neck: Supple with full range of motion. No rigidity or meningismus Chest: Nontender Lungs: Clear to auscultation bilaterally no crackles rales or wheezing Heart: Sinus tachy, no murmurs Abdomen: Soft , nontender, nondistended. No guarding no rebound tenderness , Extremities: Right lower extremity: Wound VAC in place, slight positive DP pulse felt, warm. Left foot has + DP pulse and is warm. Results Results 24hrs Laboratory Tests Test 11/21/18 05:05 White Blood Count 10.1 # Red Blood Count 3.14 L Hemoglobin 7.2 L Hematocrit 24.5 L Mean Corpuscular Volume 78.0 L Mean Corpuscular Hemoglobin 22.9 L Mean Corpuscular Hemoglobin Concent 29.4 L Red Cell Distribution Width 22.5 H Platelet Count 839 H Mean Platelet Volume 9.7 Immature Granulocytes % 4.400 H Neutrophils % 54.0 Lymphocytes % 28.6 Monocytes % 9.1 Eosinophils % 2.8 Basophils % 1.1 Nucleated Red Blood Cells % 0.2 H Immature Granulocytes # 0.440 H Neutrophils # 5.4 Lymphocytes # 2.9 Monocytes # 0.9 Eosinophils # 0.3 Basophils # 0.1 Nucleated Red Blood Cells # 0.0 Sodium Level 137 Potassium Level 3.9 Chloride Level 100 Carbon Dioxide Level 29 Anion Gap 8 Blood Urea Nitrogen 6 L Creatinine 0.54 Est Glomerular Filtrat Rate mL/min > 60 Glucose Level 100 Calcium Level 8.1 L Iron Level 64 Total Iron Binding Capacity 313 Percent Iron Saturation 20 L Ferritin 99.9 Albumin 2.7 L Prealbumin 8.1 L Medications Medication Current Medications Ipratropium [place] (Atrovent 0.02% (Neb)) 0.5 mg Q2H RESP THERAPY PRN NEB SHORTNESS OF BREATH; Start 11/06/18 at 01:30 Acetaminophen (Tylenol Liquid) 650 mg Q6H PRN PO PAIN LEVEL 1-3 OR FEVER; Start 11/06/18 at 01:30 Docusate Sodium (Colace) 100 mg Q12H PRN PO CONSTIPATION Last administered on 11/08/18 17:32; Admin Dose 100 MG; Start 11/06/18 at 01:30 Bisacodyl (Dulcolax) 5 mg DAILY PRN PO CONSTIPATION Last administered on 11/08/18 17:32; Admin Dose 5 MG; Start 11/06/18 at 01:30 Hydromorphone HCl (Dilaudid) 4 mg Q4H PRN PO MODERATE PAIN LEVEL 4-6 Last administered on 11/21/18 10:05; Admin Dose 4 MG; Start 11/07/18 at 22:29 Famotidine (Pepcid) 20 mg BID PO Last administered on 11/21/18 08:48; Admin Dose 20 MG; Start 11/08/18 at 21:00 Apixaban (Eliquis) 5 mg BID PO Last administered on 11/21/18 08:48; Admin Dose 5 MG; Start 11/11/18 at 09:30 Lorazepam (Ativan) 1 mg Q6H PRN IV ANXIETY; Start 11/12/18 at 02:30 Ondansetron HCl (Zofran Inj) 4 mg Q4H PRN IV NAUSEA AND/OR VOMITING Last administered on 11/19/18 03:17; Admin Dose 4 MG; Start 11/19/18 at 03:00 Acetaminophen (Tylenol Tab) 650 mg Q6H PO Last administered on 11/21/18 08:48; Admin Dose 650 MG; Start 11/20/18 at 14:30 Multivitamins/ Minerals (Theragran-M) 1 tab DAILY PO Last administered on 11/21/18 08:48; Admin Dose 1 TAB; Start 11/21/18 at 09:00 Ascorbic Acid (Vitamin C) 500 mg DAILY PO Last administered on 11/21/18 08:48; Admin Dose 500 MG; Start 11/21/18 at 09:00 JUVE SOLIMAN MD Nov 21, 2018 13:17
--- NOTE | 2018-11-21 13:23 | CONS ---
Assessment/Plan Assessment/Plan Hospital Course (Demo Recall) Alert, feels good, no fevers Antimicrobials: none Physical examination: Obese well-developed middle-aged woman who is alert in no distress. Head atraumatic normocephalic. Neck is supple. Chest rise symmetrical breath sounds diminished bases. Heart: S1-S2. Abdomen soft bowel sounds present. Extremities without cyanosis. Right lower extremity has a wound VAC Assessment: 1. Systemic inflammatory response syndrome 2. Right lower extremity DVT with ischemic compartment syndrome, status post fasciotomy of the right calf 11/06/[address] Poe 3. Anemia 4. Obesity 5. Atrial septal defect Plan: Off abx, wbc normalized, continue present care, wound vac Consultation Date/Type/Reason Admit Date/Time Nov 06, 2018 at 01:33 Initial Consult Date 11/09/18 Type of Consult id Requesting Provider: JUVE SOLIMAN MD Date/Time of Note DATE: 11/21/18 TIME: 13:22 Exam/Review of Systems Exam Vitals Vital Signs Date Temp Pulse Resp B/P (MAP) Pulse Ox O2 O2 Flow FiO2 Time Delivery Rate 11/21/18 98.0 89 17 99/62 (74) 100 Room Air 08:47 Intake and Output 11/20/18 11/20/18 11/21/18 1515:00 23:00 07:00 IntakeIntake Total 850 ml 600 ml OutputOutput Total 600 ml 950 ml 1000 ml BalanceBalance 250 ml -350 ml -1000 ml Results Result Diagram: 11/21/18 0505 11/21/18 0505 Results 24hrs Laboratory Tests Test 11/21/18 05:05 White Blood Count 10.1 # Red Blood Count 3.14 L Hemoglobin 7.2 L Hematocrit 24.5 L Mean Corpuscular Volume 78.0 L Mean Corpuscular Hemoglobin 22.9 L Mean Corpuscular Hemoglobin Concent 29.4 L Red Cell Distribution Width 22.5 H Platelet Count 839 H Mean Platelet Volume 9.7 Immature Granulocytes % 4.400 H Neutrophils % 54.0 Lymphocytes % 28.6 Monocytes % 9.1 Eosinophils % 2.8 Basophils % 1.1 Nucleated Red Blood Cells % 0.2 H Immature Granulocytes # 0.440 H Neutrophils # 5.4 Lymphocytes # 2.9 Monocytes # 0.9 Eosinophils # 0.3 Basophils # 0.1 Nucleated Red Blood Cells # 0.0 Sodium Level 137 Potassium Level 3.9 Chloride Level 100 Carbon Dioxide Level 29 Anion Gap 8 Blood Urea Nitrogen 6 L Creatinine 0.54 Est Glomerular Filtrat Rate mL/min > 60 Glucose Level 100 Calcium Level 8.1 L Iron Level 64 Total Iron Binding Capacity 313 Percent Iron Saturation 20 L Ferritin 99.9 Albumin 2.7 L Prealbumin 8.1 L Medications Medication Current Medications Ipratropium [place] (Atrovent 0.02% (Neb)) 0.5 mg Q2H RESP THERAPY PRN NEB SHORTNESS OF BREATH; Start 11/06/18 at 01:30 Acetaminophen (Tylenol Liquid) 650 mg Q6H PRN PO PAIN LEVEL 1-3 OR FEVER; Start 11/06/18 at 01:30 Docusate Sodium (Colace) 100 mg Q12H PRN PO CONSTIPATION Last administered on 11/08/18 17:32; Admin Dose 100 MG; Start 11/06/18 at 01:30 Bisacodyl (Dulcolax) 5 mg DAILY PRN PO CONSTIPATION Last administered on 17:32; Admin Dose 5 MG; Start 11/06/18 at 01:30 Hydromorphone HCl (Dilaudid) 4 mg Q4H PRN PO MODERATE PAIN LEVEL 4-6 Last administered on 11/21/18 10:05; Admin Dose 4 MG; Start 11/07/18 at 22:29 Famotidine (Pepcid) 20 mg BID PO Last administered on 11/21/18 08:48; Admin Dose 20 MG; Start 11/08/18 at 21:00 Apixaban (Eliquis) 5 mg BID PO Last administered on 11/21/18 08:48; Admin Dose 5 MG; Start 11/11/18 at 09:30 Lorazepam (Ativan) 1 mg Q6H PRN IV ANXIETY; Start 11/12/18 at 02:30 Ondansetron HCl (Zofran Inj) 4 mg Q4H PRN IV NAUSEA AND/OR VOMITING Last administered on 11/19/18 03:17; Admin Dose 4 MG; Start 11/19/18 at 03:00 Acetaminophen (Tylenol Tab) 650 mg Q6H PO Last administered on 11/21/18 08:48; Admin Dose 650 MG; Start 11/20/18 at 14:30 Multivitamins/ Minerals (Theragran-M) 1 tab DAILY PO Last administered on 11/21/18at 08:48; Admin Dose 1 TAB; Start 11/21/18 at 09:00 Ascorbic Acid (Vitamin C) 500 mg DAILY PO Last administered on 11/21/18at 08:48; Admin Dose 500 MG; Start 11/21/18 at 09:00 TIFFANIE DEVINE NP Nov 21, 2018 13:23
[2018-11-21 14:00] VITALS: BP 97/51; PULSE 93; RESP 18
--- NOTE | 2018-11-21 15:04 | CONS ---
Assessment/Plan Assessment/Plan Hospital Course (Demo Recall) IMPRESSION: 1. Acute arterial insufficiency.-s/p open thrombectomy. Per vascular not felt to be due to embolic mechanism 2. Lower extremity deep venous thrombosis in the right lower extremity. 3. Sinus tachycardia in the setting the patient just had surgery with significant lower extremity pain. 4. History of prior transient ischemic attack. 5. History of possible right to left shunt at level of interatrial septum or atrial septal defect, most commonly patent foramen ovale. 6. Anemia, worsening. 7. Leukocytosis. 8. Rhabdomyolysis. 9. Tachycardia-s tach mild to low 100's. Likely due to pain Recc: -Tele -Pain control with patient still requiring high dose narcotics -Continue anticoagulation now with apixaban -local wound care -would consider evaluation interatrial septum with LUÍS at later date when has recovered from current surgery -PT ongoing -to be set up with home health and wound vac Consultation Date/Type/Reason Admit Date/Time Nov 06, 2018 at 01:33 Initial Consult Date 01/07/19 Type of Consult Cardiology Reason for Consultation ASD Requesting Provider: JUVE SOLIMAN MD Date/Time of Note DATE: 11/21/18 TIME: 15:03 Exam/Review of Systems Vital Signs Vitals Vital Signs Date Temp Pulse Resp B/P (MAP) Pulse Ox O2 O2 Flow FiO2 Time Delivery Rate 11/21/18 98.0 89 17 99/62 (74) 100 Room Air 08:47 Intake and Output 11/20/18 11/20/18 11/21/18 1515:00 23:00 07:00 IntakeIntake Total 850 ml 600 ml OutputOutput Total 600 ml 950 ml 1000 ml BalanceBalance 250 ml -350 ml -1000 ml Exam Exam Review of Systems: CONSTITUTIONAL: No fevers, chills. PULMONARY: No sob CARDIOVASCULAR: No chest pain/palpitations GASTROINTESTINAL: No nausea/vomiting. GENITOURINARY: No hematuria/dysuria. MUSCULOSKELETAL: pain in leg PSYCHIATRIC: The patient denies depression. NEUROLOGIC: No weakness Constitutional: alert, oriented Psych: no complaints Head: normocephalic ENMT: mucosa pink and moist Neck: supple, jvd (8 cm water) Cardiovascular: regular rate and rhythm Gastrointestinal: soft, non-tender Musculoskeletal: muscle tone (normal) Extremities: other (leg with edema but decrsaedc/covered by dressing) Labs Result Diagram: 11/21/18 0505 11/21/18 0505 Results 24hrs Laboratory Tests Test 11/21/18 05:05 White Blood Count 10.1 # Red Blood Count 3.14 L Hemoglobin 7.2 L Hematocrit 24.5 L Mean Corpuscular Volume 78.0 L Mean Corpuscular Hemoglobin 22.9 L Mean Corpuscular Hemoglobin Concent 29.4 L Red Cell Distribution Width 22.5 H Platelet Count 839 H Mean Platelet Volume 9.7 Immature Granulocytes % 4.400 H Neutrophils % 54.0 Lymphocytes % 28.6 Monocytes % 9.1 Eosinophils % 2.8 Basophils % 1.1 Nucleated Red Blood Cells % 0.2 H Immature Granulocytes # 0.440 H Neutrophils # 5.4 Lymphocytes # 2.9 Monocytes # 0.9 Eosinophils # 0.3 Basophils # 0.1 Nucleated Red Blood Cells # 0.0 Sodium Level 137 Potassium Level 3.9 Chloride Level 100 Carbon Dioxide Level 29 Anion Gap 8 Blood Urea Nitrogen 6 L Creatinine 0.54 Est Glomerular Filtrat Rate mL/min > 60 Glucose Level 100 Calcium Level 8.1 L Iron Level 64 Total Iron Binding Capacity 313 Percent Iron Saturation 20 L Ferritin 99.9 Albumin 2.7 L Prealbumin 8.1 L Medications Medications Current Medications Ipratropium [place] (Atrovent 0.02% (Neb)) 0.5 mg Q2H RESP THERAPY PRN NEB SHORTNESS OF BREATH; Start 11/06/18 at 01:30 Acetaminophen (Tylenol Liquid) 650 mg Q6H PRN PO PAIN LEVEL 1-3 OR FEVER; Start 11/06/18 at 01:30 Docusate Sodium (Colace) 100 mg Q12H PRN PO CONSTIPATION Last administered on 11/08/18at 17:32; Admin Dose 100 MG; Start 11/06/18 at 01:30 Bisacodyl (Dulcolax) 5 mg DAILY PRN PO CONSTIPATION Last administered on 11/08/18at 17:32; Admin Dose 5 MG; Start 11/06/18 at 01:30 Hydromorphone HCl (Dilaudid) 4 mg Q4H PRN PO MODERATE PAIN LEVEL 4-6 Last administered on 11/21/18at 10:05; Admin Dose 4 MG; Start 11/07/18 at 22:29 Famotidine (Pepcid) 20 mg BID PO Last administered on 11/21/18 08:48; Admin Dose 20 MG; Start 11/08/18 at 21:00 Apixaban (Eliquis) 5 mg BID PO Last administered on 11/21/18 08:48; Admin Dose 5 MG; Start 11/11/18 at 09:30 Lorazepam (Ativan) 1 mg Q6H PRN IV ANXIETY; Start 11/12/18 at 02:30 Ondansetron HCl (Zofran Inj) 4 mg Q4H PRN IV NAUSEA AND/OR VOMITING Last administered on 11/19/18 03:17; Admin Dose 4 MG; Start 11/19/18 at 03:00 Acetaminophen (Tylenol Tab) 650 mg Q6H PO Last administered on 11/21/18 14:31; Admin Dose 650 MG; Start 11/20/18 at 14:30 Multivitamins/ Minerals (Theragran-M) 1 tab DAILY PO Last administered on 11/21/18 08:48; Admin Dose 1 TAB; Start 11/21/18 at 09:00 Ascorbic Acid (Vitamin C) 500 mg DAILY PO Last administered on 11/21/18 08:48; Admin Dose 500 MG; Start 11/21/18 at 09:00 JUVE POWELL Nov 21, 2018 15:04
[2018-11-21 21:30] VITALS: BP 86/47; PULSE 93; RESP 20
[2018-11-22] MEDS: HYDROmorphONE 2 MG TAB PO PRN ×4 (02:11→22:28)
[2018-11-22] MEDS: ACETAMINOPHEN 325 MG TAB PO SCH ×4 (02:12→20:13)
[2018-11-22 02:44] VITALS: BP 93/51; PULSE 96; RESP 16
[2018-11-22 08:45] VITALS: BP 99/53; PULSE 88; RESP 18
[2018-11-22] MEDS: ASCORBIC ACID 500 MG TAB PO SCH (08:53)
[2018-11-22] MEDS: FAMOTIDINE 20 MG TAB PO SCH ×2 (08:53→20:11)
[2018-11-22] MEDS: MULTIVITAMINS/MINERALS TAB PO SCH (08:53)
[2018-11-22] MEDS: APIXABAN 5 MG TABLET PO SCH ×2 (08:54→20:11)
--- NOTE | 2018-11-22 10:25 | CONS ---
Assessment/Plan Assessment/Plan Hospital Course (Demo Recall) 38 yo F with no PMH with previous history of TIA vs conversion disorder causing right sided paralysis that was resolving presented with unprovoked massive RLE DVT which caused compartment syndrome and decreased pulses s/p three compartment fasciotomy right calf, Norberto thrombectomy right posterior tibial artery and now on anticoagulation. # RLE unprovoked DVT -Patient is now on eliquis -She needs a total of treatment for at least three months of anticoagulation -In terms of hypercoagulable workup, patient can have full workup done after 3 months in outpatient. Labs done now will have false positivity and skew results due to active surgery and clotting. -No family history of clotting disorder makes it unlikely it is genetic but will check in outpatient setting. Consultation Date/Type/Reason Admit Date/Time Nov 06, 2018 at 01:33 Initial Consult Date 11/09/18 Type of Consult hematology Reason for Consultation RLE DVT Requesting Provider: JUVE SOLIMAN MD Date/Time of Note DATE: 11/22/18 TIME: 10:22 24 HR Interval Summary Free Text/Dictation currently off antibiotics Exam/Review of Systems Exam Vitals Vital Signs Date Temp Pulse Resp B/P (MAP) Pulse Ox O2 O2 Flow FiO2 Time Delivery Rate 11/22/18 98.9 88 18 99/53 (68) 95 Room Air 08:45 Intake and Output 11/21/18 11/21/18 11/22/18 1515:00 23:00 07:00 IntakeIntake Total 920 ml 300 ml 480 ml OutputOutput Total 1400 ml 500 ml BalanceBalance -480 ml -200 ml 480 ml Constitutional: alert, oriented Psych: no complaints Head: normocephalic Eyes: nl conjunctiva ENMT: nl external ears & nose Neck: supple Respiratory: clear to auscultation Cardiovascular: regular rate and rhythm Gastrointestinal: soft Musculoskeletal: nl extremities to inspection Extremities: normal pulses Results Result Diagram: 11/21/18 0505 11/21/18 0505 Medications Medication Current Medications Ipratropium [place] (Atrovent 0.02% (Neb)) 0.5 mg Q2H RESP THERAPY PRN NEB SHORTNESS OF BREATH; Start 11/06/18 at 01:30 Acetaminophen (Tylenol Liquid) 650 mg Q6H PRN PO PAIN LEVEL 1-3 OR FEVER; Start 11/06/18 at 01:30 Docusate Sodium (Colace) 100 mg Q12H PRN PO CONSTIPATION Last administered on 11/08/18 17:32; Admin Dose 100 MG; Start 11/06/18 at 01:30 Bisacodyl (Dulcolax) 5 mg DAILY PRN PO CONSTIPATION Last administered on 11/08/18 17:32; Admin Dose 5 MG; Start 11/06/18 at 01:30 Hydromorphone HCl (Dilaudid) 4 mg Q4H PRN PO MODERATE PAIN LEVEL 4-6 Last administered on 11/22/18 02:11; Admin Dose 4 MG; Start 11/07/18 at 22:29 Famotidine (Pepcid) 20 mg BID PO Last administered on 11/22/18 08:53; Admin Dose 20 MG; Start 11/08/18 at 21:00 Apixaban (Eliquis) 5 mg BID PO Last administered on 11/22/18 08:54; Admin Dose 5 MG; Start 11/11/18 at 09:30 Lorazepam (Ativan) 1 mg Q6H PRN IV ANXIETY; Start 11/12/18 at 02:30 Ondansetron HCl (Zofran Inj) 4 mg Q4H PRN IV NAUSEA AND/OR VOMITING Last administered on 11/19/18 03:17; Admin Dose 4 MG; Start 11/19/18 at 03:00 Acetaminophen (Tylenol Tab) 650 mg Q6H PO Last administered on 11/22/18 08:54; Admin Dose 650 MG; Start 11/20/18 at 14:30 Multivitamins/ Minerals (Theragran-M) 1 tab DAILY PO Last administered on 11/22/18 08:53; Admin Dose 1 TAB; Start 11/21/18 at 09:00 Ascorbic Acid (Vitamin C) 500 mg DAILY PO Last administered on 11/22/18 08:53; Admin Dose 500 MG; Start 11/21/18 at 09:00 Ferric Sodium Gluconate Complex 125 mg/Sodium Chloride 100 ml @ 100 mls/hr DAILY@1300 IVPB ; Start 11/22/18 at 13:00; Stop 11/24/18 at 13:59 JENARO THOMAS M.D. Nov 22, 2018 10:25
[2018-11-22] MEDS: SOD FERRIC GLUC COMPLX 125 MG in SOD CHLORIDE 0.9% 100 ML IVPB SCH (12:35)
--- NOTE | 2018-11-22 13:24 | CONS ---
Assessment/Plan Assessment/Plan Hospital Course (Demo Recall) No acute changes, alert, denies pain, nad Antimicrobials: none Physical examination: Obese well-developed middle-aged woman who is alert in no distress. Head atraumatic normocephalic. Neck is supple. Chest rise symmetrical breath sounds diminished bases. Heart: S1-S2. Abdomen soft bowel sounds present. Extremities without cyanosis. Right lower extremity has a wound VAC Assessment: 1. Systemic inflammatory response syndrome 2. Right lower extremity DVT with ischemic compartment syndrome, status post fasciotomy of the right calf 11/06/[address] Poe 3. Anemia 4. Obesity 5. Atrial septal defect Plan: Stable off abx, pending dc arrangements Consultation Date/Type/Reason Admit Date/Time Nov 06, 2018 at 01:33 Initial Consult Date 11/09/18 Type of Consult id Requesting Provider: JUVE SOLIMAN MD Date/Time of Note DATE: 11/22/18 TIME: 13:23 Exam/Review of Systems Exam Vitals Vital Signs Date Temp Pulse Resp B/P (MAP) Pulse Ox O2 O2 Flow FiO2 Time Delivery Rate 11/22/18 98.9 88 18 99/53 (68) 95 Room Air 08:45 Intake and Output 11/21/18 11/21/18 11/22/18 1515:00 23:00 07:00 IntakeIntake Total 920 ml 300 ml 480 ml OutputOutput Total 1400 ml 500 ml BalanceBalance -480 ml -200 ml 480 ml Results Result Diagram: 11/21/18 0505 11/21/18 0505 Medications Medication Current Medications Ipratropium [place] (Atrovent 0.02% (Neb)) 0.5 mg Q2H RESP THERAPY PRN NEB SHORTNESS OF BREATH; Start 11/06/18 at 01:30 Acetaminophen (Tylenol Liquid) 650 mg Q6H PRN PO PAIN LEVEL 1-3 OR FEVER; Start 11/06/18 at 01:30 Docusate Sodium (Colace) 100 mg Q12H PRN PO CONSTIPATION Last administered on 11/08/18at 17:32; Admin Dose 100 MG; Start 11/06/18 at 01:30 Bisacodyl (Dulcolax) 5 mg DAILY PRN PO CONSTIPATION Last administered on 11/08/18at 17:32; Admin Dose 5 MG; Start 11/06/18 at 01:30 Hydromorphone HCl (Dilaudid) 4 mg Q4H PRN PO MODERATE PAIN LEVEL 4-6 Last administered on 11/22/18 12:36; Admin Dose 4 MG; Start 11/07/18 at 22:29 Famotidine (Pepcid) 20 mg BID PO Last administered on 11/22/18 08:53; Admin Dose 20 MG; Start 11/08/18 at 21:00 Apixaban (Eliquis) 5 mg BID PO Last administered on 11/22/18 08:54; Admin Dose 5 MG; Start 11/11/18 at 09:30 Lorazepam (Ativan) 1 mg Q6H PRN IV ANXIETY; Start 11/12/18 at 02:30 Ondansetron HCl (Zofran Inj) 4 mg Q4H PRN IV NAUSEA AND/OR VOMITING Last administered on 11/19/18 03:17; Admin Dose 4 MG; Start 11/19/18 at 03:00 Acetaminophen (Tylenol Tab) 650 mg Q6H PO Last administered on 11/22/18 08:54; Admin Dose 650 MG; Start 11/20/18 at 14:30 Multivitamins/ Minerals (Theragran-M) 1 tab DAILY PO Last administered on 11/22/18 08:53; Admin Dose 1 TAB; Start 11/21/18 at 09:00 Ascorbic Acid (Vitamin C) 500 mg DAILY PO Last administered on 11/22/18 08:53; Admin Dose 500 MG; Start 11/21/18 at 09:00 Ferric Sodium Gluconate Complex 125 mg/Sodium Chloride 100 ml @ 100 mls/hr DAILY@1300 IVPB Last administered on 11/22/18 12:35; Admin Dose 100 MLS/HR; Start 11/22/18 at 13:00; Stop 11/24/18 at 13:59 TIFFANIE DEVINE NP Nov 22, 2018 13:24
[2018-11-22] MEDS ORDERED: morphine 2 MG INJ IV STA (14:31)
[2018-11-22] MEDS ORDERED: SOD CHLORIDE 0.9% 250 ML IV* ONE (15:15)
--- NOTE | 2018-11-22 15:18 | PN ---
Date/Time of Note Date/Time of Note DATE: 11/22/18 TIME: 15:12 Assessment/Plan VTE Prophylaxis Risk score (from Ns)>0 risk: 7 SCD applied (from Ns): No SCD contraindicated: other Pharmacological prophylaxis: apixaban Lines/Catheters IV [facility]ter [facility]from [facility] [place] Urinary Cath still in place: No Assessment/Plan Hospital Course S: Patient had wound VAC changed earlier today. No acute events overnight. O: VS - see below PE: General: Well developed woman awake and alert, no distress HEENT: Atraumatic, normocephalic. Neck: Supple with full range of motion. No rigidity or meningismus Chest: Nontender Lungs: Clear to auscultation bilaterally no crackles rales or wheezing Heart: Sinus tachy, no murmurs Abdomen: Soft , nontender, nondistended. No guarding no rebound tenderness , Extremities: Right lower extremity: Wound VAC in place, slight positive DP pulse felt, warm. Left foot has + DP pulse and is warm. DATE OF OPERATION: 11/06/2018 PREOPERATIVE DIAGNOSES: Deep vein thrombosis right leg, arterial insufficiency right leg, compartment syndrome right leg, arterial insufficiency right leg, compartment syndrome right leg. POSTOPERATIVE DIAGNOSES: Deep vein thrombosis right leg, arterial insufficiency right leg, compartment syndrome right leg, arterial insufficiency right leg, compartment syndrome right leg. OPERATIVE PROCEDURE: Three compartment fasciotomy right calf, Norberto thro mbectomy right posterior tibial artery. Assessment/Plan: 38 yo woman no major PMH presents with RLE acute limb ischemia plus DVT. # Right lower extremity DVT with ischemia- Patient was found to have a right lower extremity DVT on ultrasound as well as arterial occlusion on CT imaging, s/p three compartment fasciotomy right calf, Norberto thrombectomy right posterior tibial artery by Dr. 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 -Continue Eliquis 5 mg twice daily as recommended by heme/onc team, monitor - Pain adequately controlled on PO dilaudid and tylenol. Stopped IV dilaudid on 11/20. Tentatively plan to taper off oral opioids also. -Follow-up recommendations from PT eval # Atrial septal defect- Patient has atrial septal defect as seen on echo with bubble 09/24/2018. -Appreciate cardiology consult, follow-up their further recommendations Dr. Melara - Patient will likely need prolonged anticoagulation for DVT anyway -Per hematology oncology team for 3 months total. So no shunt closure needed anytime soon. # Iron deficiency anemia- Ferritin deficient.-Patient received IV ferrlicit- Also postoperative bleeding, required PRBC transfusion earlier this admission. Hemoglobin today 7.2 -Monitor, follow hematology oncology recommendation -Order for 1 unit PRBC transfusion today as well # EULOGIO: Resolved likely secondary to hemodynamics, mild dehydration. -For now continue IV fluid hydration - Monitor renal function. Avoid nephrotoxic agents. # Prediabetes: Recent hemoglobin A1c 6.2, - encourage diet and lifestyle modification. - Monitor blood sugars while inpatient. #Leukocytosis-resolved now -Monitor Dispo: Medically clear for discharge pending home health and wound vac. According to home health agency though, they want albumin >3 to ensure her nutrition is optimized. Result Diagram: 11/21/18 0505 11/21/18 0505 Exam/Review of Systems Exam Vitals Vital Signs Date Temp Pulse Resp B/P (MAP) Pulse Ox O2 O2 Flow FiO2 Time Delivery Rate 11/22/18 98.9 88 18 99/53 (68) 95 Room Air 08:45 Intake and Output 11/21/18 11/21/18 11/22/18 1515:00 23:00 07:00 IntakeIntake Total 920 ml 300 ml 480 ml OutputOutput Total 1400 ml 500 ml BalanceBalance -480 ml -200 ml 480 ml Medications Medication Current Medications Ipratropium [place] (Atrovent 0.02% (Neb)) 0.5 mg Q2H RESP THERAPY PRN NEB SHORTNESS OF BREATH; Start 11/06/18 at 01:30 Acetaminophen (Tylenol Liquid) 650 mg Q6H PRN PO PAIN LEVEL 1-3 OR FEVER; Start 11/06/18 at 01:30 Docusate Sodium (Colace) 100 mg Q12H PRN PO CONSTIPATION Last administered on 11/08/18at 17:32; Admin Dose 100 MG; Start 11/06/18 at 01:30 Bisacodyl (Dulcolax) 5 mg DAILY PRN PO CONSTIPATION Last administered on 11/08/18at 17:32; Admin Dose 5 MG; Start 11/06/18 at 01:30 Hydromorphone HCl (Dilaudid) 4 mg Q4H PRN PO MODERATE PAIN LEVEL 4-6 Last administered on 11/22/18 12:36; Admin Dose 4 MG; Start 11/07/18 at 22:29 Famotidine (Pepcid) 20 mg BID PO Last administered on 11/22/18 08:53; Admin Dose 20 MG; Start 11/08/18 at 21:00 Apixaban (Eliquis) 5 mg BID PO Last administered on 11/22/18 08:54; Admin Dose 5 MG; Start 11/11/18 at 09:30 Lorazepam (Ativan) 1 mg Q6H PRN IV ANXIETY; Start 11/12/18 at 02:30 Ondansetron HCl (Zofran Inj) 4 mg Q4H PRN IV NAUSEA AND/OR VOMITING Last administered on 11/19/18 03:17; Admin Dose 4 MG; Start 11/19/18 at 03:00 Acetaminophen (Tylenol Tab) 650 mg Q6H PO Last administered on 11/22/18 14:44; Admin Dose 650 MG; Start 11/20/18 at 14:30 Multivitamins/ Minerals (Theragran-M) 1 tab DAILY PO Last administered on 11/22/18 08:53; Admin Dose 1 TAB; Start 11/21/18 at 09:00 Ascorbic Acid (Vitamin C) 500 mg DAILY PO Last administered on 11/22/18 08:53; Admin Dose 500 MG; Start 11/21/18 at 09:00 Ferric Sodium Gluconate Complex 125 mg/Sodium Chloride 100 ml @ 100 mls/hr DAILY@1300 IVPB Last administered on 11/22/18 12:35; Admin Dose 100 MLS/HR; Start 11/22/18 at 13:00; Stop 11/24/18 at 13:59 ONEIL VOGEL Nov 22, 2018 15:18
[2018-11-22 15:47] VITALS: BP 104/56; PULSE 95; RESP 18
--- NOTE | 2018-11-22 17:59 | CONS ---
Assessment/Plan Assessment/Plan Hospital Course (Demo Recall) IMPRESSION: 1. Acute arterial insufficiency.-s/p open thrombectomy. Per vascular not felt to be due to embolic mechanism 2. Lower extremity deep venous thrombosis in the right lower extremity. 3. Sinus tachycardia in the setting the patient just had surgery with significant lower extremity pain. 4. History of prior transient ischemic attack. 5. History of possible right to left shunt at level of interatrial septum or atrial septal defect, most commonly patent foramen ovale. 6. Anemia, worsening. 7. Leukocytosis. 8. Rhabdomyolysis. 9. Tachycardia-s tach mild to low 100's. Likely due to pain Recc: -Tele -Pain control -Continue anticoagulation now with apixaban -local wound care -would consider evaluation interatrial septum with LUÍS at later date when has recovered from current surgery -PT ongoing -to be set up with home health and wound vac Consultation Date/Type/Reason Admit Date/Time Nov 06, 2018 at 01:33 Initial Consult Date 01/07/19 Type of Consult Cardiology Reason for Consultation ASD Requesting Provider: JUVE SOLIMAN MD Date/Time of Note DATE: 11/22/18 TIME: 17:57 Exam/Review of Systems Vital Signs Vitals Vital Signs Date Temp Pulse Resp B/P (MAP) Pulse Ox O2 O2 Flow FiO2 Time Delivery Rate 11/22/18 98.6 95 18 104/56 100 Room Air 15:47 (72) Intake and Output 11/21/18 11/21/18 11/22/18 1515:00 23:00 07:00 IntakeIntake Total 920 ml 300 ml 480 ml OutputOutput Total 1400 ml 500 ml BalanceBalance -480 ml -200 ml 480 ml Exam Exam Review of Systems: CONSTITUTIONAL: No fevers, chills. PULMONARY: No sob CARDIOVASCULAR: No chest pain/palpitations GASTROINTESTINAL: No nausea/vomiting. GENITOURINARY: No hematuria/dysuria. MUSCULOSKELETAL: No myagias/arthalgias. PSYCHIATRIC: The patient denies depression. NEUROLOGIC: No weakness Constitutional: alert Psych: no complaints Head: normocephalic ENMT: mucosa pink and moist Neck: supple, jvd (9 cm water) Respiratory: diminished breath sounds (AT BASES/b) Cardiovascular: regular rate and rhythm Gastrointestinal: soft, non-tender Musculoskeletal: muscle tone (NORMAL) Extremities: edema (NONE), other (le WITH WOUND VAC IN PLACE/SOMEWHAT DIFFICULT TO PALPATE PULSE BUT WARM AND APPEARING WELL PERFUSED) Neurological: other (nO FOCAL DEFICITS) Labs Result Diagram: 11/21/18 0505 11/21/18 0505 Medications Medications Current Medications Ipratropium [place] (Atrovent 0.02% (Neb)) 0.5 mg Q2H RESP THERAPY PRN NEB SHORTNESS OF BREATH; Start 11/06/18 at 01:30 Acetaminophen (Tylenol Liquid) 650 mg Q6H PRN PO PAIN LEVEL 1-3 OR FEVER; Start 11/06/18 at 01:30 Docusate Sodium (Colace) 100 mg Q12H PRN PO CONSTIPATION Last administered on 11/08/18 17:32; Admin Dose 100 MG; Start 11/06/18 at 01:30 Bisacodyl (Dulcolax) 5 mg DAILY PRN PO CONSTIPATION Last administered on 11/08/18 17:32; Admin Dose 5 MG; Start 11/06/18 at 01:30 Hydromorphone HCl (Dilaudid) 4 mg Q4H PRN PO MODERATE PAIN LEVEL 4-6 Last administered on 11/22/18 17:05; Admin Dose 4 MG; Start 11/07/18 at 22:29 Famotidine (Pepcid) 20 mg BID PO Last administered on 11/22/18 08:53; Admin Dose 20 MG; Start 11/08/18 at 21:00 Apixaban (Eliquis) 5 mg BID PO Last administered on 11/22/18 08:54; Admin Dose 5 MG; Start 11/11/18 at 09:30 Lorazepam (Ativan) 1 mg Q6H PRN IV ANXIETY; Start 11/12/18 at 02:30 Ondansetron HCl (Zofran Inj) 4 mg Q4H PRN IV NAUSEA AND/OR VOMITING Last administered on 11/19/18 03:17; Admin Dose 4 MG; Start 11/19/18 at 03:00 Acetaminophen (Tylenol Tab) 650 mg Q6H PO Last administered on 11/22/18 14:44; Admin Dose 650 MG; Start 11/20/18 at 14:30 Multivitamins/ Minerals (Theragran-M) 1 tab DAILY PO Last administered on 4/8/19at 08:53; Admin Dose 1 TAB; Start 11/21/18 at 09:00 Ascorbic Acid (Vitamin C) 500 mg DAILY PO Last administered on 11/22/18at 08:53; Admin Dose 500 MG; Start 11/21/18 at 09:00 Ferric Sodium Gluconate Complex 125 mg/Sodium Chloride 100 ml @ 100 mls/hr DAILY@1300 IVPB Last administered on 11/22/18at 12:35; Admin Dose 100 MLS/HR; Start 11/22/18 at 13:00; Stop 11/24/18 at 13:59 JUVE POWELL Nov 22, 2018 17:59
[2018-11-22 20:00] VITALS: BP 103/51; PULSE 64; RESP 18
[2018-11-23 02:00] VITALS: BP 103/55; PULSE 98; RESP 18
[2018-11-23] MEDS: ACETAMINOPHEN 325 MG TAB PO SCH ×2 (02:25→09:02)
[2018-11-23] MEDS: HYDROmorphONE 2 MG TAB PO PRN ×4 (02:25→22:41)
[2018-11-23] MEDS: ONDANSETRON 4 MG INJ IV PRN (06:35)
[2018-11-23 07:57] VITALS: BP 103/63; PULSE 86; RESP 17
[2018-11-23] MEDS: MULTIVITAMINS/MINERALS TAB PO SCH (09:02)
[2018-11-23] MEDS: ASCORBIC ACID 500 MG TAB PO SCH (09:02)
[2018-11-23] MEDS: APIXABAN 5 MG TABLET PO SCH ×2 (09:02→22:42)
[2018-11-23] MEDS: FAMOTIDINE 20 MG TAB PO SCH ×2 (09:02→22:42)
--- NOTE | 2018-11-23 10:31 | CONS ---
Assessment/Plan Assessment/Plan Hospital Course (Demo Recall) 38 yo F with no PMH with previous history of TIA vs conversion disorder causing right sided paralysis that was resolving presented with unprovoked massive RLE DVT which caused compartment syndrome and decreased pulses s/p three compartment fasciotomy right calf, Norberto thrombectomy right posterior tibial artery and now on anticoagulation. # RLE unprovoked DVT -Patient is now on eliquis -She needs a total of treatment for at least three months of anticoagulation -In terms of hypercoagulable workup, patient can have full workup done after 3 months in outpatient. Labs done now will have false positivity and skew results due to active surgery and clotting. -No family history of clotting disorder makes it unlikely it is genetic but will check in outpatient setting. Consultation Date/Type/Reason Admit Date/Time Nov 06, 2018 at 01:33 Initial Consult Date 11/09/18 Type of Consult hematology Reason for Consultation RLE DVT Requesting Provider: JUVE SOLIMAN MD Date/Time of Note DATE: 11/23/18 TIME: 10:30 24 HR Interval Summary Free Text/Dictation no acute overnight events Exam/Review of Systems Exam Vitals Vital Signs Date Temp Pulse Resp B/P (MAP) Pulse Ox O2 O2 Flow FiO2 Time Delivery Rate 11/23/18 98.3 86 17 103/63 99 Room Air 07:57 (76) Intake and Output 11/22/18 11/22/18 11/23/18 1414:59 22:59 06:59 IntakeIntake Total 400 ml 720 ml 470 ml OutputOutput Total 750 ml 200 ml BalanceBalance 400 ml -30 ml 270 ml Constitutional: alert, oriented Psych: no complaints Head: normocephalic Eyes: nl conjunctiva ENMT: nl external ears & nose Neck: supple Respiratory: clear to auscultation Cardiovascular: regular rate and rhythm Gastrointestinal: soft Musculoskeletal: other (wound vac in place) Results Result Diagram: 11/23/18 0546 11/23/1846 Results 24hrs Laboratory Tests Test 11/23/18 05:30 11/23/18 05:46 Lab Scanned Report BLOOD TRANSFUSION White Blood Count 13.4 #H Red Blood Count 3.68 L Hemoglobin 8.8 #L Hematocrit 29.7 #L Mean Corpuscular Volume 80.7 L Mean Corpuscular Hemoglobin 23.9 L Mean Corpuscular Hemoglobin Concent 29.6 L Red Cell Distribution Width 22.1 H Platelet Count 768 H Mean Platelet Volume 9.4 Immature Granulocytes % 2.000 H Neutrophils % 62.8 Lymphocytes % 26.4 Monocytes % 6.8 Eosinophils % 1.3 Basophils % 0.7 Nucleated Red Blood Cells % 0.2 H Immature Granulocytes # 0.270 H Neutrophils # 8.4 H Lymphocytes # 3.5 H Monocytes # 0.9 Eosinophils # 0.2 Basophils # 0.1 Nucleated Red Blood Cells # 0.0 Sodium Level 138 Potassium Level 4.0 Chloride Level 103 Carbon Dioxide Level 30 Anion Gap 5 Blood Urea Nitrogen 7 Creatinine 0.63 Est Glomerular Filtrat Rate mL/min > 60 Glucose Level 99 Calcium Level 8.2 L Phosphorus Level 4.1 Magnesium Level 2.3 Medications Medication Current Medications Ipratropium [place] (Atrovent 0.02% (Neb)) 0.5 mg Q2H RESP THERAPY PRN NEB SHORTNESS OF BREATH; Start 11/06/18 at 01:30 Acetaminophen (Tylenol Liquid) 650 mg Q6H PRN PO PAIN LEVEL 1-3 OR FEVER; Start 11/06/18 at 01:30 Docusate Sodium (Colace) 100 mg Q12H PRN PO CONSTIPATION Last administered on 11/08/18 17:32; Admin Dose 100 MG; Start 11/06/18 at 01:30 Bisacodyl (Dulcolax) 5 mg DAILY PRN PO CONSTIPATION Last administered on 11/08/18 17:32; Admin Dose 5 MG; Start 11/06/18 at 01:30 Hydromorphone HCl (Dilaudid) 4 mg Q4H PRN PO MODERATE PAIN LEVEL 4-6 Last administered on 11/23/18 02:25; Admin Dose 4 MG; Start 11/07/18 at 22:29 Famotidine (Pepcid) 20 mg BID PO Last administered on 11/23/18 09:02; Admin Dose 20 MG; Start 11/08/18 at 21:00 Apixaban (Eliquis) 5 mg BID PO Last administered on 11/23/18 09:02; Admin Dose 5 MG; Start 11/11/18 at 09:30 Lorazepam (Ativan) 1 mg Q6H PRN IV ANXIETY; Start 11/12/18 at 02:30 Ondansetron HCl (Zofran Inj) 4 mg Q4H PRN IV NAUSEA AND/OR VOMITING Last administered on 11/23/18 06:35; Admin Dose 4 MG; Start 11/19/18 at 03:00 Acetaminophen (Tylenol Tab) 650 mg Q6H PO Last administered on 11/23/18 09:02; Admin Dose 650 MG; Start 11/20/18 at 14:30 Multivitamins/ Minerals (Theragran-M) 1 tab DAILY PO Last administered on 11/23/18 09:02; Admin Dose 1 TAB; Start 11/21/18 at 09:00 Ascorbic Acid (Vitamin C) 500 mg DAILY PO Last administered on 11/23/18 09:02; Admin Dose 500 MG; Start 11/21/18 at 09:00 Ferric Sodium Gluconate Complex 125 mg/Sodium Chloride 100 ml @ 100 mls/hr DAILY@1300 IVPB Last administered on 11/22/18 12:35; Admin Dose 100 MLS/HR; Start 11/22/18 at 13:00; Stop 11/24/18 at 13:59 JENARO THOMAS M.D. Nov 23, 2018 10:31
--- NOTE | 2018-11-23 10:59 | CONS ---
Consult Date/Type/Reason Admit Date/Time Nov 06, 2018 at 01:33 Initial Consult Date Requesting Provider: JUVE SOLIMAN MD Date/Time of Note DATE: 11/23/18 TIME: 10:57 Subjective NO acute events - still pain and swelling in LE - vascular team to follow. ROS: No fever, no chills, no nausea, no vomiting, no diarrhea/constipation No recent weight changes No chest pain, no PND, no orthopnea - mild SOB, no wheezing No dizziness, blurred vision No thirst, no heat or cold intolerance Objective Vitals Vital Signs Date Temp Pulse Resp B/P (MAP) Pulse Ox O2 O2 Flow FiO2 Time Delivery Rate 11/23/18 98.3 86 17 103/63 99 Room Air 07:57 (76) Intake and Output 11/22/18 11/22/18 11/23/18 1515:00 23:00 07:00 IntakeIntake Total 400 ml 720 ml 470 ml OutputOutput Total 750 ml 200 ml BalanceBalance 400 ml -30 ml 270 ml Exam General: WN/WD/NAD, AOx 3 HEENT: Unicetric/atraumatic/EOMI ( follows commands) NECK: JVD elevated, no thyromegaly Lymph: no lymphadenopathy HEART: regular with no S3, II/ systolic murmur at apex LUNGS: Coarse sounds ABD: soft, NT, ND, +BS : Intact Neuro: non focal SKIN: chronic changes EXT: mild edema at surg site Results/Medications Result Diagram: 11/23/18 0546 11/23/18 0546 Results 24 hrs Laboratory Tests Test 11/23/18 05:30 11/23/18 05:46 Lab Scanned Report BLOOD TRANSFUSION White Blood Count 13.4 #H Red Blood Count 3.68 L Hemoglobin 8.8 #L Hematocrit 29.7 #L Mean Corpuscular Volume 80.7 L Mean Corpuscular Hemoglobin 23.9 L Mean Corpuscular Hemoglobin Concent 29.6 L Red Cell Distribution Width 22.1 H Platelet Count 768 H Mean Platelet Volume 9.4 Immature Granulocytes % 2.000 H Neutrophils % 62.8 Lymphocytes % 26.4 Monocytes % 6.8 Eosinophils % 1.3 Basophils % 0.7 Nucleated Red Blood Cells % 0.2 H Immature Granulocytes # 0.270 H Neutrophils # 8.4 H Lymphocytes # 3.5 H Monocytes # 0.9 Eosinophils # 0.2 Basophils # 0.1 Nucleated Red Blood Cells # 0.0 Sodium Level 138 Potassium Level 4.0 Chloride Level 103 Carbon Dioxide Level 30 Anion Gap 5 Blood Urea Nitrogen 7 Creatinine 0.63 Est Glomerular Filtrat Rate mL/min > 60 Glucose Level 99 Calcium Level 8.2 L Phosphorus Level 4.1 Magnesium Level 2.3 Medications Current Medications Ipratropium [place] (Atrovent 0.02% (Neb)) 0.5 mg Q2H RESP THERAPY PRN NEB SHORTNESS OF BREATH; Start 11/06/18 at 01:30 Acetaminophen (Tylenol Liquid) 650 mg Q6H PRN PO PAIN LEVEL 1-3 OR FEVER; S tart 11/06/18 at 01:30 Docusate Sodium (Colace) 100 mg Q12H PRN PO CONSTIPATION Last administered on 11/08/18 17:32; Admin Dose 100 MG; Start 11/06/18 at 01:30 Bisacodyl (Dulcolax) 5 mg DAILY PRN PO CONSTIPATION Last administered on 11/08/18 17:32; Admin Dose 5 MG; Start 11/06/18 at 01:30 Hydromorphone HCl (Dilaudid) 4 mg Q4H PRN PO MODERATE PAIN LEVEL 4-6 Last administered on 11/23/18 02:25; Admin Dose 4 MG; Start 11/07/18 at 22:29 Famotidine (Pepcid) 20 mg BID PO Last administered on 11/23/18 09:02; Admin Dose 20 MG; Start 11/08/18 at 21:00 Apixaban (Eliquis) 5 mg BID PO Last administered on 11/23/18 09:02; Admin Dose 5 MG; Start 11/11/18 at 09:30 Lorazepam (Ativan) 1 mg Q6H PRN IV ANXIETY; Start 11/12/18 at 02:30 Ondansetron HCl (Zofran Inj) 4 mg Q4H PRN IV NAUSEA AND/OR VOMITING Last administered on 11/23/18 06:35; Admin Dose 4 MG; Start 11/19/18 at 03:00 Acetaminophen (Tylenol Tab) 650 mg Q6H PO Last administered on 11/23/18 09:02; Admin Dose 650 MG; Start 11/20/18 at 14:30 Multivitamins/ Minerals (Theragran-M) 1 tab DAILY PO Last administered on 11/23/18at 09:02; Admin Dose 1 TAB; Start 11/21/18 at 09:00 Ascorbic Acid (Vitamin C) 500 mg DAILY PO Last administered on 11/23/18at 09:02; Admin Dose 500 MG; Start 11/21/18 at 09:00 Ferric Sodium Gluconate Complex 125 mg/Sodium Chloride 100 ml @ 100 mls/hr DAILY@1300 IVPB Last administered on 11/22/18at 12:35; Admin Dose 100 MLS/HR; Start 11/22/18 at 13:00; Stop 11/24/18 at 13:59 Assessment/Plan Hospital Course (Demo Recall) 1. Acute arterial insufficiency.-s/p open thrpmbectomy - con't pain Rx, vascular team follows - stable now - seen by vascular team. Better - good pulse. BETTER. 2. Lower extremity deep venous thrombosis in the right lower extremity - on anti-coagulation, heparin gtt stopped. NO signs of bleeding. On Eliquis now. Improved. Still some swelling - vascular to follow. 3. Sinus tachycardia in the setting the patient just had surgery with significant lower extremity pain - con't pain Rx. TREATED. 4. History of prior transient ischemic attack- stable now. 5. History of possible right to left shunt at level of interatrial septum or atrial septal defect, most commonly patent foramen ovale - on anti-coagulation now. NO bleeding. H/H at 8.8 6. Anemia, worsening - H/H checks - Eliquis strated - H/H 7.8. Pt looks well. NO blood Rx planned. 7. Tachycardia-s tach mild to low 100's. Likley due to pain - better now. In sinus now. Resolved. GALA ALDANA MD Nov 23, 2018 10:59
[2018-11-23] MEDS: SOD FERRIC GLUC COMPLX 125 MG in SOD CHLORIDE 0.9% 100 ML IVPB SCH (12:58)
[2018-11-23 14:09] VITALS: BP 95/53; PULSE 92; RESP 18
--- NOTE | 2018-11-23 15:12 | PN ---
Date/Time of Note Date/Time of Note DATE: 11/23/18 TIME: 15:10 Assessment/Plan VTE Prophylaxis Risk score (from Ns)>0 risk: 5 SCD applied (from Ns): No SCD contraindicated: other Pharmacological prophylaxis: apixaban Lines/Catheters [facility]from [facility] Saline Lock Urinary Cath still in place: No Assessment/Plan Hospital Course S: Patient complaining of some right lower extremity pain and swelling. Received PRBC transfusion yesterday. O: VS - see below PE: General: Well developed woman awake and alert, no distress HEENT: Atraumatic, normocephalic. Neck: Supple with full range of motion. No rigidity or meningismus Chest: Nontender Lungs: Clear to auscultation bilaterally no crackles rales or wheezing Heart: Sinus tachy, no murmurs Abdomen: Soft , nontender, nondistended. No guarding no rebound tenderness , Extremities: Right lower extremity: Wound VAC in place, slight positive DP pulse felt, warm. Left foot has + DP pulse and is warm. DATE OF OPERATION: 11/06/2018 PREOPERATIVE DIAGNOSES: Deep vein thrombosis right leg, arterial insufficiency right leg, compartment syndrome right leg, arterial insufficiency right leg, compartment syndrome right leg. POSTOPERATIVE DIAGNOSES: Deep vein thrombosis right leg, arterial insufficiency right leg, compartment syndrome right leg, arterial insufficiency right leg, compartment syndrome right leg. OPERATIVE PROCEDURE: Three compartment fasciotomy right calf, Norberto thrombectomy right posterior tibial artery. Assessment/Plan: 38 yo woman no major PMH presents with RLE acute limb ischemia plus DVT. # Right lower extremity DVT with ischemia- Patient was found to have a right lower extremity DVT on ultrasound as well as arterial occlusion on CT imaging, s/p three compartment fasciotomy right calf, Norberto thrombectomy right posterior tibial artery by Dr. 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 -Continue Eliquis 5 mg twice daily as recommended by heme/onc team, monitor - upon discharge case management has stated the insurance will only approve X arelto, which we will order for outpatient use - she will need to take this until February 11, 2019. -Continue p.o. Dilaudid and p.o. Tylenol as needed for pain control -Follow-up recommendations from PT aguilar # Atrial septal defect- Patient has atrial septal defect as seen on echo with bubble 09/24/2018. -Appreciate cardiology consult, follow-up their further recommendations Dr. Melara - Patient will likely need prolonged anticoagulation for DVT anyway -Per hematology oncology team for 3 months total. So no shunt closure needed anytime soon. # Iron deficiency anemia- Ferritin deficient.-Patient received IV ferrlicit- Also postoperative bleeding, required PRBC transfusion earlier this admission, including as late as yesterday 1 unit. Hemoglobin today stable at 8.8 per -Monitor, follow hematology oncology recommendation # EULOGIO: Resolved likely secondary to hemodynamics, mild dehydration. -For now continue IV fluid hydration - Monitor renal function. Avoid nephrotoxic agents. # Prediabetes: Recent hemoglobin A1c 6.2, - encourage diet and lifestyle modification. - Monitor blood sugars while inpatient. #Leukocytosis-resolved now -Monitor Dispo: Medically clear for discharge pending home health and wound vac approval from the insurance company. Again we have ordered lower extremity arterial Doppler study per their recommendations as well in order to get approval for the wound VAC. Likely discharge home when all this is set up in the next 24 hours. Result Diagram: 11/23/18 0546 11/23/18 0546 Results 24hrs Laboratory Tests Test 11/23/18 05:30 11/23/18 05:46 Lab Scanned Report BLOOD TRANSFUSION White Blood Count 13.4 #H Red Blood Count 3.68 L Hemoglobin 8.8 #L Hematocrit 29.7 #L Mean Corpuscular Volume 80.7 L Mean Corpuscular Hemoglobin 23.9 L Mean Corpuscular Hemoglobin Concent 29.6 L Red Cell Distribution Width 22.1 H Platelet Count 768 H Mean Platelet Volume 9.4 Immature Granulocytes % 2.000 H Neutrophils % 62.8 Lymphocytes % 26.4 Monocytes % 6.8 Eosinophils % 1.3 Basophils % 0.7 Nucleated Red Blood Cells % 0.2 H Immature Granulocytes # 0.270 H Neutrophils # 8.4 H Lymphocytes # 3.5 H Monocytes # 0.9 Eosinophils # 0.2 Basophils # 0.1 Nucleated Red Blood Cells # 0.0 Sodium Level 138 Potassium Level 4.0 Chloride Level 103 Carbon Dioxide Level 30 Anion Gap 5 Blood Urea Nitrogen 7 Creatinine 0.63 Est Glomerular Filtrat Rate mL/min > 60 Glucose Level 99 Calcium Level 8.2 L Phosphorus Level 4.1 Magnesium Level 2.3 Exam/Review of Systems Exam Vitals Vital Signs Date Temp Pulse Resp B/P (MAP) Pulse Ox O2 O2 Flow FiO2 Time Delivery Rate 11/23/18 98.3 86 17 103/63 99 Room Air 07:57 (76) Intake and Output 11/22/18 11/22/18 11/23/18 1515:00 23:00 07:00 IntakeIntake Total 400 ml 720 ml 470 ml OutputOutput Total 750 ml 200 ml BalanceBalance 400 ml -30 ml 270 ml Results Results 24hrs Laboratory Tests Test 11/23/18 05:30 11/23/18 05:46 Lab Scanned Report BLOOD TRANSFUSION White Blood Count 13.4 #H Red Blood Count 3.68 L Hemoglobin 8.8 #L Hematocrit 29.7 #L Mean Corpuscular Volume 80.7 L Mean Corpuscular Hemoglobin 23.9 L Mean Corpuscular Hemoglobin Concent 29.6 L Red Cell Distribution Width 22.1 H Platelet Count 768 H Mean Platelet Volume 9.4 Immature Granulocytes % 2.000 H Neutrophils % 62.8 Lymphocytes % 26.4 Monocytes % 6.8 Eosinophils % 1.3 Basophils % 0.7 Nucleated Red Blood Cells % 0.2 H Immature Granulocytes # 0.270 H Neutrophils # 8.4 H Lymphocytes # 3.5 H Monocytes # 0.9 Eosinophils # 0.2 Basophils # 0.1 Nucleated Red Blood Cells # 0.0 Sodium Level 138 Potassium Level 4.0 Chloride Level 103 Carbon Dioxide Level 30 Anion Gap 5 Blood Urea Nitrogen 7 Creatinine 0.63 Est Glomerular Filtrat Rate mL/min > 60 Glucose Level 99 Calcium Level 8.2 L Phosphorus Level 4.1 Magnesium Level 2.3 Medications Medication Current Medications Ipratropium [place] (Atrovent 0.02% (Neb)) 0.5 mg Q2H RESP THERAPY PRN NEB SHORTNESS OF BREATH; Start 11/06/18 at 01:30 Acetaminophen (Tylenol Liquid) 650 mg Q6H PRN PO PAIN LEVEL 1-3 OR FEVER; Star t 11/06/18 at 01:30 Docusate Sodium (Colace) 100 mg Q12H PRN PO CONSTIPATION Last administered on 11/08/18at 17:32; Admin Dose 100 MG; Start 11/06/18 at 01:30 Bisacodyl (Dulcolax) 5 mg DAILY PRN PO CONSTIPATION Last administered on 11/08/18 17:32; Admin Dose 5 MG; Start 11/06/18 at 01:30 Hydromorphone HCl (Dilaudid) 4 mg Q4H PRN PO MODERATE PAIN LEVEL 4-6 Last administered on 11/23/18 12:58; Admin Dose 4 MG; Start 11/07/18 at 22:29 Famotidine (Pepcid) 20 mg BID PO Last administered on 11/23/18 09:02; Admin Dose 20 MG; Start 11/08/18 at 21:00 Apixaban (Eliquis) 5 mg BID PO Last administered on 11/23/18 09:02; Admin Dose 5 MG; Start 11/11/18 at 09:30 Lorazepam (Ativan) 1 mg Q6H PRN IV ANXIETY; Start 11/12/18 at 02:30 Ondansetron HCl (Zofran Inj) 4 mg Q4H PRN IV NAUSEA AND/OR VOMITING Last administered on 11/23/18 06:35; Admin Dose 4 MG; Start 11/19/18 at 03:00 Acetaminophen (Tylenol Tab) 650 mg Q6H PO Last administered on 11/23/18 09:02; Admin Dose 650 MG; Start 11/20/18 at 14:30 Multivitamins/ Minerals (Theragran-M) 1 tab DAILY PO Last administered on 11/23/18 09:02; Admin Dose 1 TAB; Start 11/21/18 at 09:00 Ascorbic Acid (Vitamin C) 500 mg DAILY PO Last administered on 11/23/18 09:02; Admin Dose 500 MG; Start 11/21/18 at 09:00 Ferric Sodium Gluconate Complex 125 mg/Sodium Chloride 100 ml @ 100 mls/hr DAILY@1300 IVPB Last administered on 11/23/18 12:58; Admin Dose 100 MLS/HR; Start 11/22/18 at 13:00; Stop 11/24/18 at 13:59 ONEIL VOGEL Nov 23, 2018 15:12
[2018-11-23 20:00] VITALS: BP 100/59; PULSE 97; RESP 18
[2018-11-23] MEDS ORDERED: ACETAMINOPHEN 325 MG TAB PO PRN (20:30)
[2018-11-24 02:00] VITALS: BP 99/55; PULSE 94; RESP 18
[2018-11-24] MEDS: HYDROmorphONE 2 MG TAB PO PRN ×4 (04:09→16:53)
--- NOTE | 2018-11-24 07:44 | PN ---
Date/Time of Note Date/Time of Note DATE: 11/24/18 TIME: 07:39 Assessment/Plan Lines/Catheters IV Catheter Type (from Nrs): Saline Lock Mullen in Place (from Nrs): No Assessment/Plan Assessment/Plan s/p right leg dvt compartment syndrome s/p faciotomies right lower leg paralysis anticoagulated d/c sutures vacs in place may require skin grafts in the future please appoint to office upon d/c Subjective 24 Hr Interval Summary she has feeling in lower leg but not right foot no right ankle or toe motion vac in place ambulates with ankle brace and walker Exam/Review of Systems Vital Signs Vitals Vital Signs Date Temp Pulse Resp B/P (MAP) Pulse Ox O2 O2 Flow FiO2 Time Delivery Rate 11/24/18 98.1 94 18 99/55 (70) 100 02:00 11/23/18 Room Air 14:09 Intake and Output 11/23/18 11/23/18 11/24/18 1414:59 22:59 06:59 IntakeIntake Total 100 ml 1200 ml OutputOutput Total 800 ml BalanceBalance 100 ml 400 ml Exam Constitutional: alert, oriented Head: normocephalic Eyes: EOMI ENMT: nl lips & teeth Neck: supple Respiratory: clear to auscultation Cardiovascular: regular rate and rhythm Gastrointestinal: soft Musculoskeletal: swelling, other (right foot warm vacsin place) Neurological: CEO NA II-XII intact Results Result Diagram: 11/23/18 0546 11/23/18 0546 ANIKA PLUNKETT MD Nov 24, 2018 07:44
[2018-11-24 08:01] VITALS: BP 106/60; PULSE 87; RESP 18
[2018-11-24] MEDS: FAMOTIDINE 20 MG TAB PO SCH (08:52)
[2018-11-24] MEDS: APIXABAN 5 MG TABLET PO SCH (08:52)
[2018-11-24] MEDS: ASCORBIC ACID 500 MG TAB PO SCH (08:52)
[2018-11-24] MEDS: MULTIVITAMINS/MINERALS TAB PO SCH (09:00)
[2018-11-24] MEDS ORDERED: HYDR2TAB3 PO (12:14)
[2018-11-24] MEDS ORDERED: SENN-120 PO (12:14)
[2018-11-24] MEDS ORDERED: RIVA20TA5 PO (12:14)
[2018-11-24] MEDS ORDERED: ASC500 PO (12:14)
[2018-11-24] MEDS ORDERED: MULT-843 PO (12:14)
--- NOTE | 2018-11-24 12:24 | DS ---
Date/Time of Note Date/Time of Note DATE: 11/24/18 TIME: 12:16 Discharge Summary Admission/Discharge Info Admit Date/Time Nov 06, 2018 at 01:33 Discharge Date/Time Discharge Diagnosis # Right lower extremity DVT with ischemia- Patient was found to have Acute right popliteal vein thrombosis on ultrasound as well as arterial occlusion on CT imaging, s/p three compartment fasciotomy right calf, Norberto thrombectomy right posterior tibial artery by Dr. 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 # Atrial septal defect- Patient has atrial septal defect as seen on echo with bubble 09/24/2018. -Appreciate cardiology consult, follow-up their further recommendations Dr. Melara - Patient will likely need prolonged anticoagulation for DVT anyway -Per hematology oncology team for 3 months total. So no shunt closure needed anytime soon. # Iron deficiency anemia- Ferritin deficient.-Patient received IV ferrlicit-as well as blood transfusion during this hospital stay, hemoglobin presently stable # EULOGIO: Resolved # Prediabetes: Recent hemoglobin A1c 6.2, Dispo: Medically clear for discharge pending home health and wound vac approval from the insurance company. Again we have ordered lower extremity arterial Doppler study per their recommendations as well in order to get approval for the wound VAC. Likely discharge home when all this is set up in Patient Condition: Stable Procedures A. DATE OF OPERATION: 11/06/2018 PREOPERATIVE DIAGNOSES: Deep vein thrombosis right leg, arterial insufficiency right leg, compartment syndrome right leg, arterial insufficiency right leg, compartment syndrome right leg. POSTOPERATIVE DIAGNOSES: Deep vein thrombosis right leg, arterial insufficiency right leg, compartment syndrome right leg, arterial insufficiency right leg, compartment syndrome right leg. OPERATIVE PROCEDURE: Three compartment fasciotomy right calf, Norberto thrombectomy right posterior tibial artery. B. CTA lower extremity angiogram November 05, 2018: IMPRESSION: 1. No contrast opacified arteries are identified at the level of the ankle or foot. 2. The posterior tibial artery is occluded at the level of the proximal calf, the peroneal artery at the mid flash level and the anterior tibial artery and the distal calf level. 3. Smooth segmental narrowing of the distal popliteal artery. No hemodynamically significant stenosis or intraluminal filling defect. 3. Normal appearing arterial structures proximal to the distal popliteal artery. C. Lower extremity ultrasound November 05, 2018: IMPRESSION: DVT within the right popliteal vein. Partial DVT in the right distal femoral vein and right posterior tibial vein. D. Bilateral lower extremity arterial ultrasound November 23, 2018: IMPRESSION: Monophasic waveforms throughout the right lower extremity suggesting aortoiliac inflow disease into the right lower extremity. Elevated velocities in the right common femoral and right proximal superficial femoral arteries, possibly indicating 50 - 75% stenoses. Elevated velocities in the right mid and distal superficial femoral artery and right popliteal artery, possibly indicating 30 - 49% stenoses. If further characterization of the arterial vasculature is needed CTA is recommended. Hx of Present Illness 38-year-old female presenting with right lower extremity pain. Her pain started yesterday morning at 8 AM. She complained of aching pain that radiated down her right leg but had no associated numbness or tingling. Her pain was not very severe initially but today in the afternoon, she suddenly felt worsening pain in her right lower extremity with tingling in her foot. Her pain is a 10 out of 10, stabbing and aching, radiating down her entire right leg. It is worse with movement and touch. No associated fevers or chills. No recent injuries to the lower extremity. She denies any associated back pain. No history of coagulat ion disorder, recent travel or immobilization, recent surgeries, oral contraceptive use, or estrogen use. No family history of coagulation disorder. She is currently not taking any medications. Patient's right lower extremity was significant for swelling as well as a mottled appearance and it was cold to touch. And pulses were not palpable. Imaging studies of the right lower e xtremity were consistent with a partially occluding DVT along with occluded flow of the right lower extremity. The emergency department doctors emergently tried to secure the services of multiple vascular surgeons as well as try the transfer the patient to higher level of care for emergent intervention for a number of hours, they were able to obtain the services of who is now at the bedside and who will be proceeding to the operating room for emergent intervention. Hospital Course So patient was admitted after undergoing the procedure and seen by multiple specialists during this hospital stay including vascular surgery, infectious disease, cardiology, and hematology oncology teams. Again patient was found with right lower extremity DVT with ischemia- Patient was found to have Acute right popliteal vein thrombosis on ultrasound as well as arterial occlusion on CT imaging. Patient underwent three compartment fasciotomy right calf, Norberto thrombectomy right posterior tibial artery by Dr. Poe on (11/06). 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 Patient also found with atrial septal defect and was evaluated by cardiology team for this. They indicated no shunt closure was needed anytime soon, especially since patient's vital signs are stable and they will need to be on anticoagulation for the lower extremity DVT for 3 months total anyway. After the surgical procedure patient worked with physical therapy. She received wound VAC and pain control medications and wound care as well. The wound VAC dressing changes were performed by nursing staff and wound care nursing staff as well. She was evaluated again by vascular surgery team for this with back as well. She was monitored for return of blood flow and sensation of the right lower extremity. This slowly improved with physical therapy and with the application of the wound VAC. She also seen by nutrition team to help increase her nutrition status. She was placed on anticoagulation for the lower extremity DVT. Her vital signs are stable on day of discharge, her labs are stable, she is tolerating diet. After getting clearance from the urban design consultant teams she will be discharged home today in improved condition. She will continue with the wound VAC. She will also go home with Xarelto for anticoagulation until February 12, 2019. She will also receive home health nursing and possible home health PT. She will follow-up with the urban design consultant teams in the clinic in the next 1-2 weeks. See below for full list of discharge medications. Home Meds Active Scripts Rivaroxaban* (Xarelto*) 20 Mg Tablet, 20 MG PO WITH DINNER for 90 Days, TAB Prov:ONEIL VOGEL S. 11/24/18 Hydromorphone Hcl (Dilaudid) 2 Mg Tab, 4 MG PO Q4H PRN for MODERATE PAIN LEVEL 4-6, #30 TAB Prov:ONEIL VOGEL S. 11/24/18 Ascorbic Acid (Vitamin C) 500 Mg Tab, 500 MG PO DAILY, #30 TAB 2 Refills Prov:ONEIL VOGEL. 11/24/18 Multivits,Ca,Minerals/Iron/FA (Thera M Plus Tablet) 1 Each Tablet, 1 TAB PO DAILY, #30 TAB 2 Refills Prov:ONEIL VOGEL. 11/24/18 Sennosides* (Senna Lax*) 8.6 Mg Tablet, 1 TAB PO BID, #60 TAB 1 Refill Prov:ONEIL VOGEL 11/24/18 Follow-up Plan 1. Take all medications as prescribed. 2. Take tylenol or ibuprofen for pain. Take dilaudid for very severe pain. 3. See. Dr. Poe in clinic as scheduled. Primary Care Provider Care Physician No Primary Time spent on discharge: > 30 minutes ONEIL VOGEL Nov 24, 2018 12:24
[2018-11-24] MEDS: SOD FERRIC GLUC COMPLX 125 MG in SOD CHLORIDE 0.9% 100 ML IVPB SCH (12:43)
[2018-11-24 14:00] VITALS: BP 106/57; RESP 18
== END 2018-11-24 18:40 | disposition home health service (06) | DRG 501 ==
LOC: FTE 16:06 → ICU 11-06 01:33 → 6WM 11-08 19:03 → PP2 11-17 05:24
PROVIDERS: ADMIT Family Medicine; ATTEND Hospitalist
PROC: 04JY0ZZ Inspection of Lower Artery, Open Approach (ICD-10-PCS; 2018-11-06)
PROC: 0KNS0ZZ Release Right Lower Leg Muscle, Open Approach (ICD-10-PCS; 2018-11-06)
PROC: 0KNS0ZZ Release Right Lower Leg Muscle, Open Approach (ICD-10-PCS; 2018-11-06)
PROC: 0KNS0ZZ Release Right Lower Leg Muscle, Open Approach (ICD-10-PCS; principal; 2018-11-06 03:00)
DX: M79.A21 Nontraumatic compartment syndrome of right lower extremity (principal); I80.221 Phlebitis and thrombophlebitis of right popliteal vein; N17.9 Acute kidney failure, unspecified; M62.82 Rhabdomyolysis; I51.0 Cardiac septal defect, acquired; R65.10 Systemic inflammatory response syndrome (SIRS) of non-infectious origin without acute organ dysfunction; E66.9 Obesity, unspecified; D50.9 Iron deficiency anemia, unspecified; Z68.24 Body mass index [BMI] 24.0-24.9, adult; E86.0 Dehydration; Z86.73 Personal history of transient ischemic attack (TIA), and cerebral infarction without residual deficits; R04.0 Epistaxis; Z68.30 Body mass index [BMI] 30.0-30.9, adult; G83.11 Monoplegia of lower limb affecting right dominant side
CPT/HCPCS: 36430; 71045; 73706; 80048; 80053; 80076; 81001; 81025; 82040; 82550; 82553; 82728; 83540; 83735; 84100; 84134; 84484; 84703; 85025; 85610; 85730; 86704; 86709; 86803; 86850; 86900; 86901; 86920; 87086; 87340; 93005; 93922; 93971; 93976; 96374; 96375; 97110; 97116; 97162; 97530; J0690; J1170; J1630; J1644; J2250; J2270; J2370; J2405; J2916; J3010; J3480; J7030; J7040; J7120; L1932; L2820; L3260; P9016; Q9967

== ENCOUNTER 2018-11-25 06:49 | Emergency (ER) | payer MEDICAID ==
[~2018-11-25] VITALS: Ht 167.6 cm; Wt 84.0 kg
[~2018-11-25 06:49] MED LIST changes: -ACET325T33 PO; -CITA20TA11 PO; -FER325 PO; +HYDR2TAB3 PO; +MULT-843 PO; +RIVA20TA5 PO; +SENN-120 PO; -TRAM50TA PO; -TRAM50TA2 PO
[2018-11-25 06:54] VITALS: Ht 167.6 cm; Wt 84.0 kg
[2018-11-25] MEDS ORDERED: SOD CHLORIDE 0.9% 1,000 ML IV STA (07:16)
[2018-11-25] MEDS ORDERED: HYDROmorphONE 1 MG/ML SYG IV STA ×2 (07:16→09:45)
[2018-11-25] MEDS ORDERED: ONDANSETRON 4 MG INJ IV STA ×2 (07:16→09:45)
--- NOTE | 2018-11-25 10:58 | ERD ---
ER Documentation Chief Complaint Chief Complaint Muange bag with pump filled Patient's surgical side draining more tristin us HPI This is a 38-year-old female that presents to the emergency department for pain over her right lower extremity. The patient was recently diagnosed with a deep vein thrombosis and had an arterial occlusion that had been seen on the CT imaging. The patient underwent a 3 compartment fasciotomy of her right calf after development of compartment syndrome and arterial insufficiency of the right leg with a Norberto thrombectomy of the right posterior tibial artery by Dr. Poe on November 06, 2018. The patient had been discharged yesterday with a prescription of Bertha for analgesic control. The patient is also on a wound VAC. She has been taking Xarelto for anticoagulation and states she did take that medication but was unable to get the Bertha filled. Therefore she presents to the emergency department today requesting for analgesic medication. She indicates that there has not been any swelling of her lower extremity. She indicates that the wound VAC has been working properly with drainage of transparent fluid. She had no fevers no shaking or chills. She denies any shortness of breath at rest or exertion. ROS All systems reviewed and are negative except as per history of present illness. Medications Home Meds Active Scripts Rivaroxaban* (Xarelto*) 20 Mg Tablet, 20 MG PO WITH DINNER for 90 Days, TAB Prov:ONEIL VOGEL S. 11/24/18 Hydromorphone Hcl (Dilaudid) 2 Mg Tab, 4 MG PO Q4H PRN for MODERATE PAIN LEVEL 4-6, #30 TAB Prov:ONEIL VOGEL S. 11/24/18 Ascorbic Acid (Vitamin C) 500 Mg Tab, 500 MG PO DAILY, #30 TAB 2 Refills Prov:ONEIL VOGEL S. 11/24/18 Multivits,Ca,Minerals/Iron/FA (Thera M Plus Tablet) 1 Each Tablet, 1 TAB PO DAILY, #30 TAB 2 Refills Prov:ONEIL VOGEL S. 11/24/18 Sennosides* (Senna Lax*) 8.6 Mg Tablet, 1 TAB PO BID, #60 TAB 1 Refill Prov:ONEIL VOGEL S. 11/24/18 Allergies Allergies: Coded Allergies: No Known Allergy (Unverified , 11/05/18) PMhx/Soc Anesthesia Reaction: No Hx Neurological Disorder: No (HX: TIA) Hx Respiratory Disorders: No Hx Cardiac Disorders: No Hx Psychiatric Problems: No Hx Miscellaneous Medical Probl: Yes (anemia) Hx Alcohol Use: No Hx Substance Use: No Hx Tobacco Use: No Smoking Status: Never smoker Physical Exam Vitals Vital Signs Date Temp Pulse Resp B/P (MAP) Pulse Ox O2 O2 Flow FiO2 Time Delivery Rate 11/25/18 99.4 107 20 130/64 99 06:54 (86) Physical Exam Constitutional:Well-developed. Well-nourished. HEENT:Normocephalic. Atraumatic.Pupils were equal round reactive to light. Moist mucous membranes.No tonsillar exudates. Neck: No nuchal rigidity. No lymphadenopathy. No posterior cervical spine tenderness or step-offs. Respiratory: Not using accessory muscles of respiration.Lungs were clear to auscultation bilaterally. No rhonchi. No rales. No wheezing. Cardiovascular: Regular rate regular rhythm.No murmurs. No rubs were appreciated.S1, S2 normal. Distal pulses are palpable 2+ on the left. GI: Abdomen was soft. Nontender. Non Distended. No pulsatile abdominal masses or bruits. No rebound. No guarding. Bowel sounds were present and normal. Muscle skeletal: Full range of motion of both the upper extremities bila terally.Normal muscle tone.wound VAC present on the right lower extremity. Pain not out of proportion to physical exam of the bilateral lower extremities. No calf tenderness on the left lower extremity or swelling. Compartments were soft of the bilateral lower extremities but please note that the exam was limited of the right lower extremity due to the presence of a wound VAC. Patient unable to wiggle toes on the right lower extremity but she states the paralysis has been present prior to surgical intervention. Skin: No petechia, no purpura. No lesions on the palms or the soles of the feet. No maculopapular rash. NEURO: Patient was alert, awake, orientated x3.No facial droop. Gait observed and normal with no ataxia.Speech had regular rate and rhythm. No focal neurological deficits. Result Diagram: 11/25/18 0739 11/25/18 0739 Results 24 hrs Laboratory Tests Test 11/25/18 07:39 White Blood Count 12.8 10^3/ul Red Blood Count 4.56 10^6/ul Hemoglobin 11.2 g/dl Hematocrit 37.1 % Mean Corpuscular Volume 81.4 fl Mean Corpuscular Hemoglobin 24.6 pg Mean Corpuscular Hemoglobin Concent 30.2 g/dl Red Cell Distribution Width 24.4 % Platelet Count 722 10^3/UL Mean Platelet Volume 9.4 fl Immature Granulocytes % 0.900 % Neutrophils % 76.6 % Lymphocytes % 14.7 % Monocytes % 5.6 % Eosinophils % 1.3 % Basophils % 0.9 % Nucleated Red Blood Cells % 0.0 /100WBC Immature Granulocytes # 0.110 10^3/ul Neutrophils # 9.8 10^3/ul Lymphocytes # 1.9 10^3/ul Monocytes # 0.7 10^3/ul Eosinophils # 0.2 10^3/ul Basophils # 0.1 10^3/ul Nucleated Red Blood Cells # 0.0 10^3/ul Prothrombin Time 13.3 Sec Prothrombin Time Ratio 1.0 INR International Normalized Ratio 1.00 Activated Partial Thromboplast Time 33.4 Sec Sodium Level 140 mmol/L Potassium Level 3.8 mmol/L Chloride Level 104 mmol/L Carbon Dioxide Level 29 mmol/L Anion Gap 7 Blood Urea Nitrogen 14 mg/dl Creatinine 0.63 mg/dl Est Glomerular Filtrat Rate mL/min > 60 mL/min Glucose Level 110 mg/dl Calcium Level 8.8 mg/dl Total Bilirubin 0.4 mg/dl Direct Bilirubin 0.00 mg/dl Indirect Bilirubin 0.4 mg/dl Aspartate Amino Transf (AST/SGOT) 50 IU/L Alanine Aminotransferase (ALT/SGPT) 12 IU/L Alkaline Phosphatase 122 IU/L Total Protein 7.5 g/dl Albumin 3.4 g/dl Globulin 4.10 g/dl Albumin/Globulin Ratio 0.82 Current Medications Medications Dose Sig/Morteza Start Time Status Last (Trade) Ordered Route PRN Stop Time Admin Dose Reason Admin Sodium 1,000 ml @ Q1H STAT 11/25/18 DC 11/25/18 Chloride 1,000 mls/hr IV 07:16 07:47 11/25/18 08:15 1 mg ONCE STAT 11/25/18 DC 11/25/18 Hydromorphone IV 07:16 07:47 HCl 11/25/18 07:17 (Dilaudid) Ondansetron 4 mg ONCE STAT 11/25/18 DC 11/25/18 HCl (Zofran IV 07:16 07:47 Inj) 11/25/18 07:17 1 mg ONCE STAT 11/25/18 DC 11/25/18 Hydromorphone IV 09:45 10:23 HCl 11/25/18 09:46 (Dilaudid) Ondansetron 4 mg ONCE STAT 11/25/18 DC 11/25/18 HCl (Zofran IV 09:45 10:23 Inj) 11/25/18 09:46 Procedures/MDM This is a very pleasant 38-year-old female that presented to the emergency department with postoperative pain. The patient did not appear to have any infection such as cellulitis or necrotizing fasciitis. The wound VAC appeared to be working properly. I obtained ancillary laboratory work and there is mild leukocytosis with no left shift. She had no severe electrolyte abnormalities. The patient did not have any Sirs criteria. The patient had presented to the emergency department for analgesic control given that she was unable to fill her Bertha due to insurance issues. She received IV Dilaudid in the emergency department. After 2 doses she stated her pain had improved and she felt comfortable being discharged home. She indicated that she will be able to have the medication filled as I spoke with the pharmacy. The delay in having the medications filled as they wanted to speak with the physician in order to confirm the opiate prescription which was Dilaudid 2 mg. I did feel her symptoms were result of postoperative pain without any complications. The patient was discharged home in fair condition. They were instructed to return to the emergency department at any time if there was any worsening of their condition. The patient stated they would follow up with their PCP in the next 24-48 hours to initiate a suitable medication regimen under the care of their PCP as well as to allow their PCP to monitor any drug reactions. The patient was discharged home with prescriptions after they gave informed consent to the new medication. They were also fully informed by myself on the adverse effects and adverse drug interactions in order to provide adequate safeguards to prevent possible adverse reactions to medications. Departure Diagnosis: Primary Impression: Postoperative pain Condition: RIC Proctor MD Nov 25, 2018 10:42
[2018-11-25 11:48] VITALS: BP 125/78; PULSE 92; RESP 18
== END 2018-11-25 11:49 | disposition home or self-care (01) ==
LOC: E/R 06:49
DX: G89.18 Other acute postprocedural pain (principal); Z86.73 Personal history of transient ischemic attack (TIA), and cerebral infarction without residual deficits
CPT/HCPCS: 80053; 85025; 85610; 85730; 96374; 96375; 96376; J1170; J2405; J7030; Z7502

== ENCOUNTER 2019-01-17 21:23 | Inpatient (IN) | payer OTHER ==
[~2019-01-17] VITALS: Ht 165.1 cm; Wt 67.6 kg
[2019-01-18 00:20] VITALS: BP 118/58; PULSE 61; RESP 18
[2019-01-18 01:10] VITALS: Ht 165.1 cm; Wt 67.6 kg
[2019-01-18] MEDS: SOD CHLORIDE 0.45% 1,000 ML IV SCH ×2 (01:27→14:19)
[2019-01-18] MEDS: PIPER-TAZO 3.375 GM IV (PMX) 100 ML IVPB SCH ×4 (01:27→19:58)
[2019-01-18] MEDS: morphine 2 MG INJ IV PRN ×5 (01:28→19:59)
[2019-01-18] MEDS ORDERED: NACL 0.9% 3 ML SYG IV SCH (01:30)
[2019-01-18] MEDS ORDERED: LORAZEPAM 2 MG INJ IV PRN (01:30)
[2019-01-18] MEDS ORDERED: ALBUTEROL/IPRATROPIUM (NEB) 3 ML AMP HHN PRN (01:30)
[2019-01-18] MEDS ORDERED: NITROGLYCERIN (SL) 0.4 MG TAB SL PRN (01:30)
[2019-01-18] MEDS ORDERED: hydrALAzine 20 MG INJ IV PRN (01:30)
[2019-01-18] MEDS ORDERED: VANCOMYCIN IV PER PHARMACY XX SCH (01:30)
[2019-01-18] MEDS ORDERED: MAGNESIUM HYDROXIDE 30ML CUP PO PRN (01:30)
[2019-01-18 02:18] VITALS: BP 90/44; PULSE 95; RESP 18
[2019-01-18] MEDS ORDERED: VANCOMYCIN HCL 1.25 GM in SOD CHLORIDE 0.9% 250 ML IVPB SCH (02:30)
--- NOTE | 2019-01-18 03:42 | HP ---
DATE OF ADMISSION: 01/18/2019 IDENTIFICATION: This is a 38 -year-old female. CHIEF COMPLAINT: Transferred from an outside hospital due to worsening right lower extremity pain an d foul smell. HISTORY OF PRESENT ILLNESS: A 38-year-old female with past medical history of right lower extremity deep venous thrombosis, on Xarelto, who underwent three compartment fasciotomy of the right calf in 0 10/2018. Norberto thrombectomy of the MEAT GRINDER for critical limb ischemia and compartment syndrome who come s in after being transferred from outside hospital due to insurance reasons because of right lower ex tremity pain and foul odor. The patient states the symptoms have been going on for the last two week s. After she was discharged in November from [facility], she followed up with the timmy bergeron surgeon about two weeks ago and at that time she was told to follow up at [facility] for plastic surgery referral. She has been having a wound VAC in place since she left the [facility] in November and has been noticing worsening foul odor over the last two weeks and also worsening red ness and pain surrounding her wound VAC site. No fevers or chills. No diarrhea or constipation, no nausea, vomiting, upper or lower GI bleeding, no chest pain or shortness of breath. When she present ed to the outside hospital earlier today, she was transferred over here again, as stated above, due t o insurance purposes, but she did have findings of elevated white blood cell count of 13.2. PAST MEDICAL HISTORY: As stated above. ALLERGIES: NO KNOWN DRUG ALLERGIES. HOME MEDICATIONS: 1. Xarelto. 2. Dilaudid 4 mg p.o. q.4h. p.r.n. 3. Senna 1 tab b.i.d. 4. Vitamin C 500 mg daily. 5. Multivitamin 1 tab daily. PAST SURGICAL HISTORY: Again, she had the three compartment fasciotomy of the right calf, Norberto th rombectomy of the MEAT GRINDER for critical limb ischemia and compartment syndrome that was done on 10/2018. She also had appendectomy in the past and oophorectomy in the past as well, in the past. FAMILY HISTORY: Noncontributory. SOCIAL HISTORY: Negative for smoking, drinking, or IV drug abuse. PHYSICAL EXAMINATION: VITAL SIGNS: T-max little 36.7 Fahrenheit, heart rate 114, respirations 18, blood pressure 99/86, sa tting at 99% on room air. GENERAL: The patient is lying in bed, answering questions appropriately. No acute distress. Family at bedside. HEENT: Pupils equal, round, reactive to light. Extraocular muscles intact. NECK: Supple, no thyromegaly. LUNGS: Clear to auscultation bilaterally. CARDIOVASCULAR: S1, S2 heard. No rubs or gallops. ABDOMEN: Soft, nontender, nondistended. Normal bowel sounds. No rebound or guarding. MUSCULOSKELETAL: On the right lower extremity, there is a medial and lateral compartment wound VAC i n place. There is some redness noted. There is some tenderness to palpation noted. There is also a 1+ pitting edema to the ankles. There is also some redness noted on the skin and induration surroun ding the medial portion of the lateral wound VAC. In both sides of the medial wound VAC, there is a significant foul odor noted before entering the room. NEUROLOGIC: No focal deficits. LABORATORY DATA: Last catheterization was 2.7, the repeat was 1.2. WBC 13.2, hemoglobin 9.5, hemato crit 30.4, platelets of 580. Sodium 134, potassium 4.0, chloride 199, CO2 24, BUN 6, creatinine 0.73 , glucose of 148, INR 1.29. There were apparently no imaging studies performed at the outside hospit al. ASSESSMENT AND PLAN: A 38-year-old female with history of right lower extremity deep venous thrombos is status post three compartment fasciotomy of the right calf, Norberto thrombectomy of the MEAT GRINDER for cr itical limb ischemia and compartment syndrome in 10/2018, who presents with two weeks of worsening ri t lower extremity swelling and redness and foul odor with wound VAC still in place. 1. Right lower extremity foul odor, redness and swelling. There is a concern of worsening infection given the elevated white blood cell count and the redness noted on the skin as well as the foul odor , so admit the patient for the broad-spectrum antibiotics, check TSH, A1c and lipid panel and reconsu lt vascular surgery team and infectious disease team. We will order imaging studies. Consider CT sc an and/or MRI of the right lower extremity to assess for any further worsening of the lower extremity including abscess. Consider PT consult as well. 2. Right lower extremity deep venous thrombosis. The patient has been on Xarelto since [facility] in 10/2018. We will hold off on restarting Xarelto for now given the fact the patient may n eed to have a surgical debridement performed depending on the imaging study results, monitor for now. 3. History of atrial septal defect. This was seen on echocardiogram with bubble study performed in 09/2018. At that time, cardiology team recommended continuing anticoagulation for deep venous thromb osis and no shunt closure was needed at any time soon. 4. History of iron-deficiency anemia. Hemoglobin stable. Continue to monitor for now. 5. History of prediabetes, last A1c was 6.2. We will check an A1c now. Dictated By: ONEIL BUNCH/CAIN Conf#: [id number] DID#: [id number] CC: ISAIAS JEAN BAPTISTE DO; LORNE DANIELS MD; RIC PEREYRA MD; SCOTT TREADWELL DO; MAYRA GARCIA MD; EMMA TIAN MD; SHYAM WELLS MD; ANA MARÍA GALEANO MD; FLACO ARANGO DO; KULWANT CHILEL MD; DEBBIE CRAFT MD; FLACO ESPINAL MD; KULWANT SHIPMAN MD; ARMAND SANCHEZ MD;*End*
[2019-01-18] MEDS ORDERED: PIPER-TAZO 3.375 GM IV (PMX) 100 ML IVPB SCH (06:00)
[2019-01-18 07:33] VITALS: BP_SYST 84; BP_SYST 94; BP_DIAS 51; PULSE 78; RESP 16
[2019-01-18] MEDS: ASCORBIC ACID 500 MG TAB PO SCH (08:59)
[2019-01-18] MEDS: MULTIVITAMINS/MINERALS TAB PO SCH (09:00)
[2019-01-18] MEDS ORDERED: HEPARIN 5,000 UNIT/1 ML VIAL SC SCH (09:00)
[2019-01-18] MEDS: HYDROmorphONE 2 MG TAB PO PRN ×3 (11:38→21:52)
[2019-01-18 14:25] VITALS: BP 91/52; PULSE 65; RESP 16
[2019-01-18] MEDS ORDERED: HEPARIN 1000 UNITS/ML 10 ML INJ IV ONE (14:30)
[2019-01-18] MEDS ORDERED: HEPARIN 1000 UNITS/ML 10 ML INJ IV PRN ×2 (14:30)
--- NOTE | 2019-01-18 14:32 | PN ---
Date/Time of Note Date/Time of Note DATE: 01/18/19 TIME: 14:26 Assessment/Plan VTE Prophylaxis Risk score (from Ns)>0 risk: 7 SCD applied (from Ns): Yes Pharmacological prophylaxis: heparin Lines/Catheters Urinary Cath still in place: No Assessment/Plan Hospital Course Appears comfortable Nontoxic RLE with swellling in calf, wound vac applied Some eryhtema, pain A/P: 38 yo female with h/o extensive DVT of RLE leading to compartment syndrome s/p fasciotomy who was discharged with wound vac and now returns with likely infection of the wound - I have contacted the office fo Justin Guthrie and Deepika and notified them to patient's admission. CT suggests phlegmon and exam suggests need for I and D - Continue antibiotics DVT: - Start on heparin drip which can be turned off in the event of surgery Results 24hrs Laboratory Tests Test 01/18/19 01:36 01/18/19 03:09 01/18/19 05:29 01/18/19 10:44 Prothrombin Time 15.3 H Prothrombin Time Ratio 1.2 INR International 1.20 Normalized Ratio Activated 33.7 Partial Thromboplast Time Free Thyroxine 1.96 H Lactic Acid Level 2.6 *H 1.9 1.1 Subjective 24 Hr Interval Summary Free Text/Dictation Continued pain in RLE Exam/Review of Systems Exam Vitals Vital Signs Date Temp Pulse Resp B/P (MAP) Pulse Ox O2 O2 Flow FiO2 Time Delivery Rate 01/18/19 99.2 78 16 94/51 (65) 96 Room Air 07:33 Intake and Output 01/17/19 01/17/19 01/18/19 1515:00 23:00 07:00 IntakeIntake Total 175 ml BalanceBalance 175 ml Results Results 24hrs Laboratory Tests Test 01/18/19 01:36 01/18/19 03:09 01/18/19 05:29 01/18/19 10:44 Prothrombin Time 15.3 H Prothrombin Time Ratio 1.2 INR International 1.20 Normalized Ratio Activated 33.7 Partial Thromboplast Time Free Thyroxine 1.96 H Lactic Acid Level 2.6 *H 1.9 1.1 Medications Medication Current Medications IV Flush (NS 3 ml) 3 ml PER PROTOCOL IV ; Start 01/18/19 at 01:30 Ondansetron HCl (Zofran Inj) 4 mg Q6H PRN IV NAUSEA/VOMITING; Start 01/18/19 at 01:30 Acetaminophen (Tylenol Tab) 650 mg Q6H PRN PO .PAIN 1-3 OR TEMP; Start 01/18/19 at 01:30 Acetaminophen/ Hydrocodone Bitart ([place] (5/325)) 1 tab Q6H PRN PO .MOD PAIN 4- 6; Start 01/18/19 at 01:30 Morphine Sulfate (morphine) 2 mg Q4H PRN IV .SEVERE PAIN 7-10 Last administered on 01/18/19at 10:25; Admin Dose 2 MG; Start 01/18/19 at 01:30 Docusate Sodium (Colace) 100 mg Q12H PRN PO .CONSTIPATION; Start 01/18/19 at 01:30 Magnesium Hydroxide (Milk Of Mag) 30 ml DAILY PRN PO .CONSTIPATION; Start 01/18/19 at 01:30 Heparin Sodium (Porcine) (Heparin (5000 Units/1ml)) 5,000 unit Q12 SC Last administered on 01/18/19at 09:00; Admin Dose 5,000 UNIT; Start 01/18/19 at 09:00 Sodium Chloride 1,000 ml @ 75 mls/hr [id number] IV Last administered on 01/18/19at 01:27; Admin Dose 75 MLS/HR; Start 01/18/19 at 01:01 Lorazepam (Ativan) 0.5 mg Q6H PRN IV ANXIETY; Start 01/18/19 at 01:30 Albuterol/ Ipratropium (Duoneb) 3 ml Q4H RESP THERAPY PRN HHN SHORTNESS OF BREATH; Start 01/18/19 at 01:30 Vancomycin HCl (Vanco Iv Per Pharmacy) VANCOMYCIN PER PHARMACY NOTE XX ; Start 01/18/19 at 01:30 Hydralazine HCl (Apresoline) 10 mg Q6H PRN IV ELEVATED BLOOD PRESSURE; Start 01/18/19 at 01:30 Nitroglycerin (Nitroglycerin (Sl Tab) 0.4 Mg) 1 tab Q5M PRN SL ANGINA; Start 01/18/19 at 01:30 Piperacillin Sod/ Tazobactam Sod 100 ml @ 200 mls/hr Q6 IVPB Last administered on 01/18/19at 11:37; Admin Dose 200 MLS/HR; Start 01/18/19 at 01:30 Vancomycin HCl 250 ml @ 125 mls/hr Q12H IVPB ; Start 01/18/19 at 16:00 Ascorbic Acid (Vitamin C) 500 mg DAILY PO Last administered on 01/18/19at 08:59; Admin Dose 500 MG; Start 01/18/19 at 09:00 Hydromorphone HCl (Dilaudid) 4 mg Q4H PRN PO MODERATE PAIN LEVEL 4-6 Last administered on 01/18/19at 11:38; Admin Dose 4 MG; Start 01/18/19 at 03:00 Multivitamins/ Minerals (Theragran-M) 1 tab DAILY PO Last administered on 01/18/19at 09:00; Admin Dose 1 TAB; Start 01/18/19 at 09:00 Miscellaneous Information (*Rx Drug Level Order Reminder*) 1 1500 ONCE XX ; Start 01/19/19 at 15:00; Stop 01/19/19 at 15:01 GIOVANA RETANA MD Jan 18, 2019 14:32
[2019-01-18] MEDS: ACETAMINOPHEN 325 MG TAB PO PRN ×2 (14:50→21:52)
--- NOTE | 2019-01-18 16:15 | PN ---
Date/Time of Note Date/Time of Note DATE: 01/18/19 TIME: 16:13 Assessment/Plan Lines/Catheters IV Catheter Type (from [email or web address] Peripheral IV Mullen in Place (from [facility] [[email or web address] No Assessment/Plan Assessment/Plan patient had RLE ischemia requiring thrombectomy about 2 months ago. She has had a wound vac in place and now returns with a very foul smelling wound and lateral wound draining pus. CT may show deeper abscess. Will take cultures, needs ID consult. continue with wet to dry dressing changes now. may need further debridement. Exam/Review of Systems Vital Signs Vitals Vital Signs Date Temp Pulse Resp B/P (MAP) Pulse Ox O2 O2 Flow FiO2 Time Delivery Rate 01/18/19 100.4 14:50 01/18/19 65 16 91/52 (65) 99 Room Air 14:25 Intake and Output 01/17/19 01/17/19 01/18/19 1515:00 23:00 07:00 IntakeIntake Total 175 ml BalanceBalance 175 ml Results Result Diagram: 01/18/19 1514 YOLANDA GONZALEZ MD Jan 18, 2019 16:15
[2019-01-18] MEDS: VANCOMYCIN 1 GM 250 ML IVPB SCH (16:18)
--- NOTE | 2019-01-18 16:37 | CONS ---
DATE OF ADMISSION: 01/18/2019 DATE OF CONSULTATION: 01/18/2019 REASON FOR CONSULTATION: Antibiotic management. HISTORY OF PRESENT ILLNESS: Cathy Mendoza is a 38-year-old female who transferred from the out side hospital with worsening right lower extremity pain and with foul smell to the lower extremity. Her past problems include: 1. Right lower extremity deep vein thrombosis, on Xarelto. 2. Three-compartment fasciotomy of the right calf in 10/2018. She had a Norberto thrombectomy of the [employer] for critical limb ischemia and compartmental syndrome. She comes in with right lower extremity pain and foul odor of 2 weeks' duration. She followed up at [facility] for plastic surgery referral. She is having a wound VAC in place since she left the [facility] in November but noted worsening foul odor over the last 2 weeks and worsening redness and pain surro unding the wound VAC site. She has no fever or chills, no nausea, vomiting. She had elevated white blood cell count of 13.2. PAST MEDICAL HISTORY: As outlined. PAST SURGICAL HISTORY: She had a 3-compartment fasciotomy of the right calf, Norberto thrombectomy of the ENDLESS STEAMER TENDER for critical limb ischemia. She also had an appendectomy in the past and an oophorectomy an d a . FAMILY HISTORY: Noncontributory. SOCIAL HISTORY: She does not smoke, drink or abuse drugs. ALLERGIES: NONE TO PENICILLIN, SULFA OR FOODS. MEDICATIONS: Per chart. REVIEW OF SYSTEMS: As per HPI. PHYSICAL EXAMINATION: GENERAL: The patient is lying in bed in no acute distress. VITAL SIGNS: Stable. She is afebrile. SKIN: Without generalized rash. HEENT: Within normal limits. NECK: Supple. LYMPH NODES: None palpable. CHEST: Decreased breath sounds at the bases. HEART: Without murmur or gallop. ABDOMEN: Soft, nontender, without organosplenomegaly or masses. EXTREMITIES: Right lower extremity: There are wounds secondary to medial and lateral compartment loza rgery. A wound VAC is in place. There is tenderness. There is 1+ pedal edema, redness noted on the skin with induration surrounding the medial portion of the lateral wound VAC. RECTAL: Deferred. GENITAL: Deferred. NEUROLOGIC: No focal neurological abnormality. LABORATORY DATA: White count 13.2, hemoglobin 9.5, hematocrit 30.4, platelet count 580,000. BUN and creatinine 6/0.73, glucose 148. IMPRESSION AND PLAN: In conclusion, we have a 38-year-old female with a history of significant ische patrick vascular disease, right lower extremity, which has foul odor, redness and swelling with probable infection with a white count of 13.2. Consider CT scan or MRI of the right lower extremity to assess for any further worsening of the lower extremity, including abscess. The patient is on Xarelto. Th is has been held since surgical debridement may be needed. The patient is currently on vancomycin an d Zosyn. CT scan of the lower extremity shows a large wound at the medial and lateral aspect of the lower leg, edema and possible phlegmonous material deep to the wounds without definite loculation or drainable fluid collection. The patient needs to have a surgical evaluation for possible debridement . I will dictate my findings to the hospitalist. Dictated By: ALEN GONSALEZ MD SHANELL/NTS Conf#: [id number] DID#: [id number] CC: TIMO CRAFT MD;*EndCC*
[2019-01-18] MEDS: HEPARIN 25000 UNITS/250 ML 250 ML IV SCH (18:36)
[2019-01-18 19:50] VITALS: BP 114/58; PULSE 96; RESP 20
[2019-01-19] MEDS: morphine 2 MG INJ IV PRN ×5 (00:06→21:56)
[2019-01-19] MEDS: PIPER-TAZO 3.375 GM IV (PMX) 100 ML IVPB SCH ×4 (00:06→18:20)
[2019-01-19 02:20] VITALS: BP 113/59; PULSE 64; RESP 17
[2019-01-19] MEDS: VANCOMYCIN 1 GM 250 ML IVPB SCH ×2 (04:01→16:18)
--- NOTE | 2019-01-19 05:59 | PN ---
Date/Time of Note Date/Time of Note DATE: 01/19/19 TIME: 05:58 Assessment/Plan VTE Prophylaxis Risk score (from Ns)>0 risk: 5 SCD applied (from Ns): No SCD contraindicated: other Pharmacological prophylaxis: heparin Lines/Catheters IV [facility] ([facility] Peripheral IV Urinary Cath still in place: No Assessment/Plan Hospital Course SUBJECTIVE: Continues to complain of right lower extremity pain. OBJECTIVE: Physical Exam General: Adequately build 38 year-old female lying in bed in no apparent distress. HEENT: Normocephalic, atraumatic. Eyes: Anicteric sclerae, conjunctivae clear. ENT: Nasal septum midline, oral mucosa moist. Neck supple, no JVD noticed. Respiratory: Bilaterally clear breath sounds. No use of accessory muscles of respiration. No adventitious breath sounds. Cardiovascular: S1, S2 heard. Regular rate and rhythm. Abdomen: Soft, nontender, and nondistended. Bowel sounds positive in all 4 quadrants. Genitourinary: Deferred. Extremities: No cyanosis, no clubbing. Right lower extremity dressing. Peripheral pulses palpable. Neurologic: Cranial nerves II through XII grossly intact. The patient is awake, alert, and oriented. Labs & Vitals per chart ASSESSMENT & PLAN 38-year-old female with past medical history of right lower extremity DVT who underwent a 3 compartment fasciotomy of the right calf in October 2018 and thrombectomy of the posterior tibial artery for critical limb ischemia and compartment syndrome who was transferred from outside facility at this time due to insurance reasons because of right lower extremity pain and wound with foul- smelling odor with CT showing large wound to the medial and lateral aspect of the lower leg with overlying wounds with edema and possible phlegmonous material deep in the wounds, who was admitted to inpatient setting for further treatment and evaluation. 1. Right lower extremity infected wounds in a patient with prior history of t hrombectomy and 3 compartment fasciotomy. -Continue antimicrobials as per infectious diseases. -Being followed by vascular surgery. 2. History of right lower extremity DVT. -The patient already on heparin drip. -Previously on Xarelto. 3. Microcytic, hypochromic anemia. -Etiology unclear. -Monitor H&H closely. -Obtain iron panel. 4. Fluids, electrolytes, and nutrition. -Regular diet. 5. DVT prophylaxis. -On heparin drip. 6. Plan. -Continue antimicrobials as per ID. -Await further surgical recommendations. The patient was seen in collaboration with Dr. Quinn. Result Diagram: 01/18/19 1514 01/18/19 1514 Results 24hrs Laboratory Tests Test 01/18/19 10:44 01/18/19 15:14 01/19/19 00:55 01/19/19 05:06 Lactic Acid Level 1.1 White Blood Count 9.4 # 10.6 Red Blood Count 3.29 #L 3.14 L Hemoglobin 8.0 #L 7.6 L Hematocrit 26.5 #L 24.9 L Mean Corpuscular Volume 80.5 L 79.3 L Mean Corpuscular 24.3 L 24.2 L Hemoglobin Mean Corpuscular 30.2 L 30.5 L Hemoglobin Concent Red Cell Distribution 17.3 #H 17.2 H Width Platelet Count 508 #H 511 H Mean Platelet Volume 9.8 10.0 Immature Granulocytes % 0.300 0.300 Neutrophils % 65.4 59.4 Lymphocytes % 24.1 28.8 Monocytes % 7.4 7.9 Eosinophils % 1.8 2.8 Basophils % 1.0 0.8 Nucleated Red Blood 0.0 0.0 Cells % Immature Granulocytes # 0.030 0.030 Neutrophils # 6.1 6.3 Lymphocytes # 2.3 3.1 H Monocytes # 0.7 0.8 Eosinophils # 0.2 0.3 Basophils # 0.1 0.1 Nucleated Red Blood 0.0 0.0 Cells # Prothrombin Time 14.9 Prothrombin Time Ratio 1.2 INR International 1.16 Normalized Ratio Activated 34.4 152.6 *H Partial Thromboplast Time Blood Urea Nitrogen 2 L Creatinine 0.61 Exam/Review of Systems Exam Vitals Vital Signs Date Temp Pulse Resp B/P (MAP) Pulse Ox O2 O2 Flow FiO2 Time Delivery Rate 01/19/19 98.9 64 17 113/59 94 02:20 (77) 01/18/19 Room Air 14:25 Intake and Output 01/18/19 01/18/19 01/19/19 1515:00 23:00 07:00 IntakeIntake Total 1050 ml 750 ml 221 ml BalanceBalance 1050 ml 750 ml 221 ml Results Results 24hrs Laboratory Tests Test 01/18/19 10:44 01/18/19 15:14 01/19/19 00:55 01/19/19 05:06 Lactic Acid Level 1.1 White Blood Count 9.4 # 10.6 Red Blood Count 3.29 #L 3.14 L Hemoglobin 8.0 #L 7.6 L Hematocrit 26.5 #L 24.9 L Mean Corpuscular Volume 80.5 L 79.3 L Mean Corpuscular 24.3 L 24.2 L Hemoglobin Mean Corpuscular 30.2 L 30.5 L Hemoglobin Concent Red Cell Distribution 17.3 #H 17.2 H Width Platelet Count 508 #H 511 H Mean Platelet Volume 9.8 10.0 Immature Granulocytes % 0.300 0.300 Neutrophils % 65.4 59.4 Lymphocytes % 24.1 28.8 Monocytes % 7.4 7.9 Eosinophils % 1.8 2.8 Basophils % 1.0 0.8 Nucleated Red Blood 0.0 0.0 Cells % Immature Granulocytes # 0.030 0.030 Neutrophils # 6.1 6.3 Lymphocytes # 2.3 3.1 H Monocytes # 0.7 0.8 Eosinophils # 0.2 0.3 Basophils # 0.1 0.1 Nucleated Red Blood 0.0 0.0 Cells # Prothrombin Time 14.9 Prothrombin Time Ratio 1.2 INR International 1.16 Normalized Ratio Activated 34.4 152.6 *H Partial Thromboplast Time Blood Urea Nitrogen 2 L Creatinine 0.61 Medications Medication Current Medications IV Flush (NS 3 ml) 3 ml PER PROTOCOL IV ; Start 01/18/19 at 01:30 Ondansetron HCl (Zofran Inj) 4 mg Q6H PRN IV NAUSEA/VOMITING; Start 01/18/19 at 01:30 Acetaminophen (Tylenol Tab) 650 mg Q6H PRN PO .PAIN 1-3 OR TEMP Last administered on 01/18/19at 21:52; Admin Dose 650 MG; Start 01/18/19 at 01:30 Acetaminophen/ Hydrocodone Bitart ([place] (5/325)) 1 tab Q6H PRN PO .MOD PAIN 4- 6; Start 01/18/19 at 01:30 Morphine Sulfate (morphine) 2 mg Q4H PRN IV .SEVERE PAIN 7-10 Last administered on 01/19/19at 04:11; Admin Dose 2 MG; Start 01/18/19 at 01:30 Docusate Sodium (Colace) 100 mg Q12H PRN PO .CONSTIPATION; Start 01/18/19 at 01:30 Magnesium Hydroxide (Milk Of Mag) 30 ml DAILY PRN PO .CONSTIPATION; Start 01/18/19 at 01:30 Lorazepam (Ativan) 0.5 mg Q6H PRN IV ANXIETY; Start 01/18/19 at 01:30 Albuterol/ Ipratropium (Duoneb) 3 ml Q4H RESP THERAPY PRN HHN SHORTNESS OF BREATH; Start 01/18/19 at 01:30 Vancomycin HCl (Vanco Iv Per Pharmacy) VANCOMYCIN PER PHARMACY NOTE XX ; Start 01/18/19 at 01:30 Hydralazine HCl (Apresoline) 10 mg Q6H PRN IV ELEVATED BLOOD PRESSURE; Start 01/18/19 at 01:30 Nitroglycerin (Nitroglycerin (Sl Tab) 0.4 Mg) 1 tab Q5M PRN SL ANGINA; Start 01/18/19 at 01:30 Piperacillin Sod/ Tazobactam Sod 100 ml @ 200 mls/hr Q6 IVPB Last administered on 01/19/19at 00:06; Admin Dose 200 MLS/HR; Start 01/18/19 at 01:30 Vancomycin HCl 250 ml @ 125 mls/hr Q12H IVPB Last administered on 01/19/19at 04:01; Admin Dose 125 MLS/HR; Start 01/18/19 at 16:00 Ascorbic Acid (Vitamin C) 500 mg DAILY PO Last administered on 01/18/19at 08:59; Admin Dose 500 MG; Start 01/18/19 at 09:00 Hydromorphone HCl (Dilaudid) 4 mg Q4H PRN PO MODERATE PAIN LEVEL 4-6 Last administered on 01/18/19at 21:52; Admin Dose 4 MG; Start 01/18/19 at 03:00 Multivitamins/ Minerals (Theragran-M) 1 tab DAILY PO Last administered on 01/18/19at 09:00; Admin Dose 1 TAB; Start 01/18/19 at 09:00 Miscellaneous Information (*Rx Drug Level Order Reminder*) 1 1500 ONCE XX ; Start 01/19/19 at 15:00; Stop 01/19/19 at 15:01 Heparin Sodium (Porcine) (Heparin (1000 Units/ml)) 5,400 unit PER PROTOCOL PRN IV aPTT<47; Start 01/18/19 at 14:30 Heparin Sodium (Porcine) (Heparin (1000 Units/ml)) 2,700 unit PER PROTOCOL PRN IV aPTT<47-57; Start 01/18/19 at 14:30 Heparin Sodium (Porcine) 250 ml @ 12 mls/hr PER PROTOCOL IV Last administered on 01/18/19at 18:36; Admin Dose 12 MLS/HR; Start 01/18/19 at 15:00 NURYS SINGH NP Jan 19, 2019 05:59
[2019-01-19] MEDS: HYDROmorphONE 2 MG TAB PO PRN ×3 (06:46→18:24)
--- NOTE | 2019-01-19 07:32 | PN ---
Date/Time of Note Date/Time of Note DATE: 01/19/19 TIME: 07:28 Assessment/Plan Lines/Catheters IV Catheter Type (from Nrsg): Peripheral IV Mullen in Place (from Nrsg): No Assessment/Plan Assessment/Plan s/p dvt right leg s/p fasciotomies right let on iv heparin dressing changes await wound care nurse eval continue iv vanco and zosyn check cultures Subjective 24 Hr Interval Summary Constitutional: improved Feeding: advancing diet Pain Control: well controlled Exam/Review of Systems Vital Signs Vitals Vital Signs Date Temp Pulse Resp B/P (MAP) Pulse Ox O2 O2 Flow FiO2 Time Delivery Rate 01/19/19 98.9 64 17 113/59 94 02:20 (77) 01/18/19 Room Air 14:25 Intake and Output 01/18/19 01/18/19 01/19/19 1515:00 23:00 07:00 IntakeIntake Total 1050 ml 750 ml 571 ml BalanceBalance 1050 ml 750 ml 571 ml Exam Constitutional: alert Psych: no complaints Head: normocephalic Eyes: EOMI ENMT: nl lips & teeth Neck: supple Respiratory: normal air movement Cardiovascular: regular rate and rhythm Extremities: other (right foot warm edematous medial compartment granulating pink lateral compartment small area of purulence in the middle not as odiferous as yest) Skin: other (skin around wound looks normal) Results Result Diagram: 01/19/19 0506 01/19/19 0507 ANIKA PLUNKETT MD Jan 19, 2019 07:32
[2019-01-19] MEDS: MULTIVITAMINS/MINERALS TAB PO SCH (08:43)
[2019-01-19] MEDS: ASCORBIC ACID 500 MG TAB PO SCH (08:43)
[2019-01-19 09:03] VITALS: BP 132/62; PULSE 76; RESP 20
[2019-01-19] MEDS: MUPIROCIN 2% 22 GM OINT TOP SCH ×3 (09:44→21:04)
[2019-01-19] MEDS: HEPARIN 25000 UNITS/250 ML 250 ML IV SCH ×2 (13:55→20:51)
[2019-01-19 14:00] VITALS: BP 98/57; PULSE 94; RESP 18
[2019-01-19 16:28] VITALS: BP 102/58; PULSE 90
--- NOTE | 2019-01-19 16:53 | CONS ---
Assessment/Plan Assessment/Plan Hospital Course (Demo Recall) No acute changes overnight patient is awake looks comfortable afebrile T-max yesterday 100.4. WBC 10.6 platelets 511 neutrophils 59.4 Microbiology: Blood cultures remain negative MRSA swab came back positive, wound culture growing gram-negative rods Antimicrobials: Vancomycin, Zosyn Physical examination: Well-developed middle-aged woman who is awake in no distress. Head atraumatic normocephalic neck is supple chest rise symmetrical breath sounds diminished bases heart S1-S2 abdomen soft bowel sounds present. Extremities: With right lower extremity dressing intact Assessment: 1. Systemic inflammatory response syndrome 2. Right lower extremity infected wound 3. MRSA nares colonization 4. 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 Atrial septal defect Plan: Patient is clinically stable, continue antibiotics, await for final cultures, follow vascular surgery recommendations, topical Bactroban Consultation Date/Type/Reason Admit Date/Time Jan 18, 2019 at 00:20 Initial Consult Date Type of Consult id Date/Time of Note DATE: 01/19/19 TIME: 16:52 Exam/Review of Systems Exam Vitals Vital Signs Date Temp Pulse Resp B/P (MAP) Pulse Ox O2 O2 Flow FiO2 Time Delivery Rate 01/19/19 99.0 90 102/58 16:28 (73) 01/19/19 18 96 14:00 01/19/19 Room Air 09:03 Intake and Output 01/18/19 01/18/19 01/19/19 1515:00 23:00 07:00 IntakeIntake Total 1050 ml 750 ml 571 ml BalanceBalance 1050 ml 750 ml 571 ml Results Result Diagram: 01/19/19 0506 01/19/19 0507 Results 24hrs Laboratory Tests Test 01/19/19 00:55 01/19/19 05:06 01/19/19 05:07 01/19/19 12:31 Activated 152.6 *H 61.5 H 58.1 H Partial Thromboplast Time White Blood Count 10.6 Red Blood Count 3.14 L Hemoglobin 7.6 L Hematocrit 24.9 L Mean Corpuscular Volume 79.3 L Mean Corpuscular 24.2 L Hemoglobin Mean Corpuscular 30.5 L Hemoglobin Concent Red Cell Distribution 17.2 H Width Platelet Count 511 H Mean Platelet Volume 10.0 Immature Granulocytes % 0.300 Neutrophils % 59.4 Lymphocytes % 28.8 Monocytes % 7.9 Eosinophils % 2.8 Basophils % 0.8 Nucleated Red Blood 0.0 Cells % Immature Granulocytes # 0.030 Neutrophils # 6.3 Lymphocytes # 3.1 H Monocytes # 0.8 Eosinophils # 0.3 Basophils # 0.1 Nucleated Red Blood 0.0 Cells # Hemoglobin A1c 5.6 Sodium Level 139 Potassium Level 3.5 Chloride Level 108 Carbon Dioxide Level 27 Anion Gap 4 L Blood Urea Nitrogen 2 L Creatinine 0.61 Est Glomerular Filtrat > 60 Rate mL/min Glucose Level 103 Calcium Level 8.0 L Phosphorus Level 4.7 Magnesium Level 2.0 Triglycerides Level 108 Cholesterol Level 96 L LDL Cholesterol, 51 Calculated HDL Cholesterol 23 L Cholesterol/HDL Ratio 4.1 Thyroid Stimulating 2.840 Hormone (TSH) Test 01/19/19 15:06 Vancomycin Level Trough < 5.0 L Medications Medication Current Medications IV Flush (NS 3 ml) 3 ml PER PROTOCOL IV ; Start 01/18/19 at 01:30 Ondansetron HCl (Zofran Inj) 4 mg Q6H PRN IV NAUSEA/VOMITING; Start 01/18/19 at 01:30 Acetaminophen (Tylenol Tab) 650 mg Q6H PRN PO .PAIN 1-3 OR TEMP Last administered on 01/18/19at 21:52; Admin Dose 650 MG; Start 01/18/19 at 01:30 Acetaminophen/ Hydrocodone Bitart ([place] (5/325)) 1 tab Q6H PRN PO .MOD PAIN 4- 6; Start 01/18/19 at 01:30 Morphine Sulfate (morphine) 2 mg Q4H PRN IV .SEVERE PAIN 7-10 Last administered on 01/19/19at 15:08; Admin Dose 2 MG; Start 01/18/19 at 01:30 Docusate Sodium (Colace) 100 mg Q12H PRN PO .CONSTIPATION; Start 01/18/19 at 01:30 Magnesium Hydroxide (Milk Of Mag) 30 ml DAILY PRN PO .CONSTIPATION; Start 01/18/19 at 01:30 Lorazepam (Ativan) 0.5 mg Q6H PRN IV ANXIETY; Start 01/18/19 at 01:30 Albuterol/ Ipratropium (Duoneb) 3 ml Q4H RESP THERAPY PRN HHN SHORTNESS OF BREATH; Start 01/18/19 at 01:30 Vancomycin HCl (Vanco Iv Per Pharmacy) VANCOMYCIN PER PHARMACY NOTE XX ; Start 01/18/19 at 01:30 Hydralazine HCl (Apresoline) 10 mg Q6H PRN IV ELEVATED BLOOD PRESSURE; Start 01/18/19 at 01:30 Nitroglycerin (Nitroglycerin (Sl Tab) 0.4 Mg) 1 tab Q5M PRN SL ANGINA; Start 01/18/19 at 01:30 Piperacillin Sod/ Tazobactam Sod 100 ml @ 200 mls/hr Q6 IVPB Last administered on 01/19/19 11:23; Admin Dose 200 MLS/HR; Start 01/18/19 at 01:30 Ascorbic Acid (Vitamin C) 500 mg DAILY PO Last administered on 01/19/19 08:43; Admin Dose 500 MG; Start 01/18/19 at 09:00 Hydromorphone HCl (Dilaudid) 4 mg Q4H PRN PO MODERATE PAIN LEVEL 4-6 Last administered on 01/19/19 13:04; Admin Dose 4 MG; Start 01/18/19 at 03:00 Multivitamins/ Minerals (Theragran-M) 1 tab DAILY PO Last administered on 01/19/19 08:43; Admin Dose 1 TAB; Start 01/18/19 at 09:00 Heparin Sodium (Porcine) (Heparin (1000 Units/ml)) 5,400 unit PER PROTOCOL PRN IV aPTT<47; Start 01/18/19 at 14:30 Heparin Sodium (Porcine) (Heparin (1000 Units/ml)) 2,700 unit PER PROTOCOL PRN IV aPTT<47-57; Start 01/18/19 at 14:30 Heparin Sodium (Porcine) 250 ml @ 12 mls/hr PER PROTOCOL IV Last administered on 01/19/19 13:55; Admin Dose 13 MLS/HR; Start 01/18/19 at 15:00 Mupirocin (Bactroban) 1 applic BID TOP Last administered on 01/19/19 09:44; Admin Dose 1 APPLIC; Start 01/19/19 at 09:00 Vancomycin HCl 250 ml @ 125 mls/hr Q8H IVPB Last administered on 01/19/19 16:18; Admin Dose 125 MLS/HR; Start 01/19/19 at 16:00 Miscellaneous Information (*Rx Drug Level Order Reminder*) RHEAO TR 01/20 AT 1500 1500 ONCE XX ; Start 01/20/19 at 15:00; Stop 01/20/19 at 15:01 TIFFANIE DEVINE NP Jan 19, 2019 16:53
[2019-01-19 20:00] VITALS: BP 118/62; PULSE 97; RESP 18
[2019-01-19] MEDS: HYDROCODONE/APAP (5/325) TAB PO PRN (21:03)
[2019-01-20] MEDS: PIPER-TAZO 3.375 GM IV (PMX) 100 ML IVPB SCH ×3 (01:04→12:29)
[2019-01-20] MEDS: HYDROmorphONE 2 MG TAB PO PRN ×2 (01:37→06:00)
[2019-01-20] MEDS: VANCOMYCIN 1 GM 250 ML IVPB SCH ×2 (01:42→09:56)
[2019-01-20 02:46] VITALS: BP 97/57; PULSE 84; RESP 16
--- NOTE | 2019-01-20 06:59 | PN ---
Date/Time of Note Date/Time of Note DATE: 01/20/19 TIME: 06:58 Assessment/Plan Lines/Catheters IV Catheter Type (from [facility]): Saline Lock Mullen in Place (from [facility]): No Assessment/Plan Assessment/Plan leg wound culture growing GNR, await final culture results, continue dressing changes, no debridement at this time. will need plastic surgery once infection resolves for skin graft Exam/Review of Systems Vital Signs Vitals Vital Signs Date Temp Pulse Resp B/P (MAP) Pulse Ox O2 O2 Flow FiO2 Time Delivery Rate 01/20/19 98.5 84 16 97/57 (70) 94 02:46 01/19/19 Room Air 09:03 Intake and Output 01/19/19 01/19/19 01/20/19 1515:00 23:00 07:00 IntakeIntake Total 531 ml 865 ml OutputOutput Total 500 ml BalanceBalance 531 ml 365 ml Results Result Diagram: 01/19/19 0506 01/19/19 0507 YOLANDA GONZALEZ MD Jan 20, 2019 06:59
[2019-01-20] MEDS ORDERED: POTASSIUM CHLORIDE (SR) 20 MEQ TAB PO STA (07:58)
--- NOTE | 2019-01-20 07:58 | PN ---
Date/Time of Note Date/Time of Note DATE: 01/20/19 TIME: 07:57 Assessment/Plan VTE Prophylaxis Risk score (from Ns)>0 risk: 4 SCD applied (from [facility] [place]): No SCD contraindicated: other Pharmacological prophylaxis: heparin Lines/Catheters IV Catheter Type (from [facility]): Saline Lock Urinary Cath still in place: No Assessment/Plan Hospital Course SUBJECTIVE: Continues to complain of right lower extremity pain. OBJECTIVE: Physical Exam General: Adequately build 38 year-old female lying in bed in no apparent distress. HEENT: Normocephalic, atraumatic. Eyes: Anicteric sclerae, conjunctivae clear. ENT: Nasal septum midline, oral mucosa moist. Neck supple, no JVD noticed. Respiratory: Bilaterally clear breath sounds. No use of accessory muscles of respiration. No adventitious breath sounds. Cardiovascular: S1, S2 heard. Regular rate and rhythm. Abdomen: Soft, nontender, and nondistended. Bowel sounds positive in all 4 quadrants. Genitourinary: Deferred. Extremities: No cyanosis, no clubbing. Right lower extremity dressing. Peripheral pulses palpable. Neurologic: Cranial nerves II through XII grossly intact. The patient is awake, alert, and oriented. Labs & Vitals per chart ASSESSMENT & PLAN 38-year-old female with past medical history of right lower extremity DVT who underwent a 3 compartment fasciotomy of the right calf in October 2018 and thrombectomy of the posterior tibial artery for critical limb ischemia and compartment syndrome who was transferred from outside facility at this time due to insurance reasons because of right lower extremity pain and wound with foul- smelling odor with CT showing large wound to the medial and lateral aspect of the lower leg with overlying wounds with edema and possible phlegmonous material deep in the wounds, who was admitted to inpatient setting for further treatment and evaluation. 1. Right lower extremity infected wounds in a patient with prior history of thr ombectomy and 3 compartment fasciotomy. -Continue antimicrobials as per infectious diseases. -Being followed by vascular surgery. 2. History of right lower extremity DVT. -The patient already on heparin drip. -Previously on Xarelto. 3. Microcytic, hypochromic anemia. -Etiology unclear. -Monitor H&H closely. -Iron panel showing iron deficiency. Start iron supplements. 4. Fluids, electrolytes, and nutrition. -Regular diet. 5. DVT prophylaxis. -On heparin drip. 6. Plan. -Continue antimicrobials as per ID. -Replete electrolytes. -Await clinical improvement. The patient was seen in collaboration with Dr. Quinn. Result Diagram: 01/20/19 0643 01/20/19 0643 Results 24hrs Laboratory Tests Test 01/19/19 12:31 01/19/19 15:06 01/19/19 20:08 01/20/19 06:43 Activated 58.1 H 80.3 *H 116.4 *H Partial Thromboplast Time Vancomycin Level Trough < 5.0 L White Blood Count 9.7 Red Blood Count 3.35 L Hemoglobin 8.1 L Hematocrit 26.5 L Mean Corpuscular Volume 79.1 L Mean Corpuscular 24.2 L Hemoglobin Mean Corpuscular 30.6 L Hemoglobin Concent Red Cell Distribution 17.4 H Width Platelet Count 534 H Mean Platelet Volume 9.7 Immature Granulocytes % 0.400 Neutrophils % 56.9 Lymphocytes % 30.9 Monocytes % 6.8 Eosinophils % 4.0 Basophils % 1.0 Nucleated Red Blood 0.0 Cells % Immature Granulocytes # 0.040 H Neutrophils # 5.5 Lymphocytes # 3.0 H Monocytes # 0.7 Eosinophils # 0.4 Basophils # 0.1 Nucleated Red Blood 0.0 Cells # Sodium Level 140 Potassium Level 3.2 L Chloride Level 106 Carbon Dioxide Level 29 Anion Gap 5 Blood Urea Nitrogen 3 L Creatinine 0.59 Est Glomerular Filtrat > 60 Rate mL/min Glucose Level 94 Calcium Level 8.1 L Iron Level 18 L Total Iron Binding 180 L Capacity Percent Iron Saturation 10 L Vitamin D 1,25-Dihydroxy < 12.8 L Exam/Review of Systems Exam Vitals Vital Signs Date Temp Pulse Resp B/P (MAP) Pulse Ox O2 O2 Flow FiO2 Time Delivery Rate 01/20/19 98.5 84 16 97/57 (70) 94 02:46 01/19/19 Room Air 09:03 Intake and Output 01/19/19 01/19/19 01/20/19 1515:00 23:00 07:00 IntakeIntake Total 531 ml 865 ml OutputOutput Total 500 ml BalanceBalance 531 ml 365 ml Results Results 24hrs Laboratory Tests Test 01/19/19 12:31 01/19/19 15:06 01/19/19 20:08 01/20/19 06:43 Activated 58.1 H 80.3 *H 116.4 *H Partial Thromboplast Time Vancomycin Level Trough < 5.0 L White Blood Count 9.7 Red Blood Count 3.35 L Hemoglobin 8.1 L Hematocrit 26.5 L Mean Corpuscular Volume 79.1 L Mean Corpuscular 24.2 L Hemoglobin Mean Corpuscular 30.6 L Hemoglobin Concent Red Cell Distribution 17.4 H Width Platelet Count 534 H Mean Platelet Volume 9.7 Immature Granulocytes % 0.400 Neutrophils % 56.9 Lymphocytes % 30.9 Monocytes % 6.8 Eosinophils % 4.0 Basophils % 1.0 Nucleated Red Blood 0.0 Cells % Immature Granulocytes # 0.040 H Neutrophils # 5.5 Lymphocytes # 3.0 H Monocytes # 0.7 Eosinophils # 0.4 Basophils # 0.1 Nucleated Red Blood 0.0 Cells # Sodium Level 140 Potassium Level 3.2 L Chloride Level 106 Carbon Dioxide Level 29 Anion Gap 5 Blood Urea Nitrogen 3 L Creatinine 0.59 Est Glomerular Filtrat > 60 Rate mL/min Glucose Level 94 Calcium Level 8.1 L Iron Level 18 L Total Iron Binding 180 L Capacity Percent Iron Saturation 10 L Vitamin D 1,25-Dihydroxy < 12.8 L Medications Medication Current Medications IV Flush (NS 3 ml) 3 ml PER PROTOCOL IV ; Start 01/18/19 at 01:30 Ondansetron HCl (Zofran Inj) 4 mg Q6H PRN IV NAUSEA/VOMITING; Start 01/18/19 at 01:30 Acetaminophen (Tylenol Tab) 650 mg Q6H PRN PO .PAIN 1-3 OR TEMP Last administered on 01/18/19 21:52; Admin Dose 650 MG; Start 01/18/19 at 01:30 Acetaminophen/ Hydrocodone Bitart ([place] (5/325)) 1 tab Q6H PRN PO .MOD PAIN 4- 6 Last administered on 01/19/19 21:03; Admin Dose 1 TAB; Start 01/18/19 at 01:30 Morphine Sulfate (morphine) 2 mg Q4H PRN IV .SEVERE PAIN 7-10 Last administered on 01/19/19at 21:56; Admin Dose 2 MG; Start 01/18/19 at 01:30 Docusate Sodium (Colace) 100 mg Q12H PRN PO .CONSTIPATION; Start 01/18/19 at 01: 30 Magnesium Hydroxide (Milk Of Mag) 30 ml DAILY PRN PO .CONSTIPATION; Start 01/18/19 at 01:30 Lorazepam (Ativan) 0.5 mg Q6H PRN IV ANXIETY; Start 01/18/19 at 01:30 Albuterol/ Ipratropium (Duoneb) 3 ml Q4H RESP THERAPY PRN HHN SHORTNESS OF BREATH; Start 01/18/19 at 01:30 Vancomycin HCl (Vanco Iv Per Pharmacy) VANCOMYCIN PER PHARMACY NOTE XX ; Start 01/18/19 at 01:30 Hydralazine HCl (Apresoline) 10 mg Q6H PRN IV ELEVATED BLOOD PRESSURE; Start 01/18/19 at 01:30 Nitroglycerin (Nitroglycerin (Sl Tab) 0.4 Mg) 1 tab Q5M PRN SL ANGINA; Start 01/18/19 at 01:30 Piperacillin Sod/ Tazobactam Sod 100 ml @ 200 mls/hr Q6 IVPB Last administered on 01/20/19at 05:54; Admin Dose 200 MLS/HR; Start 01/18/19 at 01:30 Ascorbic Acid (Vitamin C) 500 mg DAILY PO Last administered on 01/19/19at 08:43; Admin Dose 500 MG; Start 01/18/19 at 09:00 Hydromorphone HCl (Dilaudid) 4 mg Q4H PRN PO MODERATE PAIN LEVEL 4-6 Last administered on 01/20/19at 06:00; Admin Dose 4 MG; Start 01/18/19 at 03:00 Multivitamins/ Minerals (Theragran-M) 1 tab DAILY PO Last administered on 01/19/19at 08:43; Admin Dose 1 TAB; Start 01/18/19 at 09:00 Heparin Sodium (Porcine) (Heparin (1000 Units/ml)) 5,400 unit PER PROTOCOL PRN IV aPTT<47; Start 01/18/19 at 14:30 Heparin Sodium (Porcine) (Heparin (1000 Units/ml)) 2,700 unit PER PROTOCOL PRN IV aPTT<47-57; Start 01/18/19 at 14:30 Heparin Sodium (Porcine) 250 ml @ 12 mls/hr PER PROTOCOL IV Last administered on 01/19/19at 20:51; Admin Dose 13 MLS/HR; Start 01/18/19 at 15:00 Mupirocin (Bactroban) 1 applic BID TOP Last administered on 01/19/19at 21:04; Admin Dose 1 APPLIC; Start 01/19/19 at 09:00 Vancomycin HCl 250 ml @ 125 mls/hr Q8H IVPB Last administered on 01/20/19at 01:42; Admin Dose 125 MLS/HR; Start 01/19/19 at 16:00 Miscellaneous Information (*Rx Drug Level Order Reminder*) VANCO TR 01/20 AT 1500 1500 ONCE XX ; Start 01/20/19 at 15:00; Stop 01/20/19 at 15:01 Mupirocin (Bactroban) 1 applic BID TOP ; Start 01/19/19 at 21:00 NURYS SINGH NP Jan 20, 2019 07:57
[2019-01-20 08:00] VITALS: BP 95/53; PULSE 82; RESP 16
[2019-01-20] MEDS: HEPARIN 25000 UNITS/250 ML 250 ML IV SCH ×2 (08:51→17:45)
[2019-01-20] MEDS: MUPIROCIN 2% 22 GM OINT TOP SCH ×3 (09:00→21:17)
[2019-01-20] MEDS: CHOLECALCIFEROL 2,000 UNIT CAP PO SCH (09:55)
[2019-01-20] MEDS: ASCORBIC ACID 500 MG TAB PO SCH (09:55)
[2019-01-20] MEDS: MULTIVITAMINS/MINERALS TAB PO SCH (09:55)
[2019-01-20] MEDS: ACETAMINOPHEN 325 MG TAB PO PRN (12:37)
[2019-01-20] MEDS ORDERED: SOD CHLORIDE 0.9% 500 ML IV ONE (13:00)
[2019-01-20 14:00] VITALS: BP 100/53; PULSE 85; RESP 17
[2019-01-20] MEDS: morphine 2 MG INJ IV PRN ×2 (14:24→23:56)
[2019-01-20] MEDS: SOD FERRIC GLUC COMPLX 125 MG in SOD CHLORIDE 0.9% 100 ML IVPB SCH (14:24)
--- NOTE | 2019-01-20 14:45 | CONS ---
Assessment/Plan Assessment/Plan Hospital Course (Demo Recall) No acute changes overnight Microbiology: Blood cultures remain negative MRSA swab came back positive Wound culture growing Enterobacter and strep Antimicrobials: Merrem Physical examination: Well-developed middle-aged woman who is awake in no distress. Head atraumatic normocephalic neck is supple chest rise symmetrical breath sounds diminished bases heart S1-S2 abdomen soft bowel sounds present. Extremities: With right lower extremity dressing intact Assessment: 1. Systemic inflammatory response syndrome 2. Right lower extremity infected wound 3. MRSA nares colonization 4. 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 Atrial septal defect Plan: Stable, continue antibiotics topical Bactroban to nares, f/u vascular rec-s Consultation Date/Type/Reason Admit Date/Time Jan 18, 2019 at 00:20 Initial Consult Date Type of Consult id Date/Time of Note DATE: 01/20/19 TIME: 14:44 Exam/Review of Systems Exam Vitals Vital Signs Date Temp Pulse Resp B/P (MAP) Pulse Ox O2 O2 Flow FiO2 Time Delivery Rate 01/20/19 98.0 82 16 95/53 (67) 98 08:00 01/19/19 Room Air 09:03 Intake and Output 01/19/19 01/19/19 01/20/19 1515:00 23:00 07:00 IntakeIntake Total 531 ml 865 ml 493 ml OutputOutput Total 500 ml BalanceBalance 531 ml 365 ml 493 ml Results Result Diagram: 01/20/19 0643 01/20/19 0643 Results 24hrs Laboratory Tests Test 01/19/19 15:06 01/19/19 20:08 01/20/19 06:43 Vancomycin Level Trough < 5.0 L Activated Partial Thromboplast Time 80.3 *H 116.4 *H White Blood Count 9.7 Red Blood Count 3.35 L Hemoglobin 8.1 L Hematocrit 26.5 L Mean Corpuscular Volume 79.1 L Mean Corpuscular Hemoglobin 24.2 L Mean Corpuscular Hemoglobin Concent 30.6 L Red Cell Distribution Width 17.4 H Platelet Count 534 H Mean Platelet Volume 9.7 Immature Granulocytes % 0.400 Neutrophils % 56.9 Lymphocytes % 30.9 Monocytes % 6.8 Eosinophils % 4.0 Basophils % 1.0 Nucleated Red Blood Cells % 0.0 Immature Granulocytes # 0.040 H Neutrophils # 5.5 Lymphocytes # 3.0 H Monocytes # 0.7 Eosinophils # 0.4 Basophils # 0.1 Nucleated Red Blood Cells # 0.0 Sodium Level 140 Potassium Level 3.2 L Chloride Level 106 Carbon Dioxide Level 29 Anion Gap 5 Blood Urea Nitrogen 3 L Creatinine 0.59 Est Glomerular Filtrat Rate mL/min > 60 Glucose Level 94 Calcium Level 8.1 L Phosphorus Level 4.6 Magnesium Level 2.1 Iron Level 18 L Total Iron Binding Capacity 180 L Percent Iron Saturation 10 L Ferritin 44.5 Vitamin D 1,25-Dihydroxy < 12.8 L Medications Medication Current Medications IV Flush (NS 3 ml) 3 ml PER PROTOCOL IV ; Start 01/18/19 at 01:30 Ondansetron HCl (Zofran Inj) 4 mg Q6H PRN IV NAUSEA/VOMITING; Start 01/18/19 at 01:30 Acetaminophen (Tylenol Tab) 650 mg Q6H PRN PO .PAIN 1-3 OR TEMP Last administered on 01/20/19at 12:37; Admin Dose 650 MG; Start 01/18/19 at 01:30 Acetaminophen/ Hydrocodone Bitart ([place] (5/325)) 1 tab Q6H PRN PO .MOD PAIN 4- 6 Last administered on 01/19/19at 21:03; Admin Dose 1 TAB; Start 01/18/19 at 01:30 Morphine Sulfate (morphine) 2 mg Q4H PRN IV .SEVERE PAIN 7-10 Last administered on 01/20/19at 14:24; Admin Dose 2 MG; Start 01/18/19 at 01:30 Docusate Sodium (Colace) 100 mg Q12H PRN PO .CONSTIPATION; Start 01/18/19 at 01:30 Magnesium Hydroxide (Milk Of Mag) 30 ml DAILY PRN PO .CONSTIPATION; Start 01/18/19 at 01:30 Lorazepam (Ativan) 0.5 mg Q6H PRN IV ANXIETY; Start 01/18/19 at 01:30 Albuterol/ Ipratropium (Duoneb) 3 ml Q4H RESP THERAPY PRN HHN SHORTNESS OF BREATH; Start 01/18/19 at 01:30 Hydralazine HCl (Apresoline) 10 mg Q6H PRN IV ELEVATED BLOOD PRESSURE; Start 01/18/19 at 01:30 Nitroglycerin (Nitroglycerin (Sl Tab) 0.4 Mg) 1 tab Q5M PRN SL ANGINA; Start 01/18/19 at 01:30 Ascorbic Acid (Vitamin C) 500 mg DAILY PO Last administered on 01/20/19 09:55; Admin Dose 500 MG; Start 01/18/19 at 09:00 Hydromorphone HCl (Dilaudid) 4 mg Q4H PRN PO MODERATE PAIN LEVEL 4-6 Last administered on 01/20/19 06:00; Admin Dose 4 MG; Start 01/18/19 at 03:00 Multivitamins/ Minerals (Theragran-M) 1 tab DAILY PO Last administered on 01/20/19 09:55; Admin Dose 1 TAB; Start 01/18/19 at 09:00 Heparin Sodium (Porcine) (Heparin (1000 Units/ml)) 5,400 unit PER PROTOCOL PRN IV aPTT<47; Start 01/18/19 at 14:30 Heparin Sodium (Porcine) (Heparin (1000 Units/ml)) 2,700 unit PER PROTOCOL PRN IV aPTT<47-57; Start 01/18/19 at 14:30 Heparin Sodium (Porcine) 250 ml @ 12 mls/hr PER PROTOCOL IV Last administered on 01/20/19 08:51; Admin Dose 11.5 MLS/HR; Start 01/18/19 at 15:00 Mupirocin (Bactroban) 1 applic BID TOP Last administered on 01/20/19 09:57; Admin Dose 1 APPLIC; Start 01/19/19 at 09:00 Ferric Sodium Gluconate Complex 125 mg/Sodium Chloride 110 ml @ 110 mls/hr DAILY@1300 IVPB Last administered on 01/20/19 14:24; Admin Dose 110 MLS/HR; Start 01/20/19 at 13:00; Stop 01/24/19 at 13:59 Cholecalciferol (Vitamin D) 2,000 unit DAILY PO Last administered on 01/20/19 09:55; Admin Dose 2,000 UNIT; Start 01/20/19 at 09:00 Meropenem/Sodium Chloride 50 ml @ 100 mls/hr Q8 IVPB ; Start 01/20/19 at 14:00 TIFFANIE DEVINE NP Jan 20, 2019 14:45
[2019-01-20] MEDS: MEROPENEM 1 GM/50ML(PMX) 50 ML IVPB SCH ×2 (16:01→21:18)
[2019-01-20 20:51] VITALS: BP 95/50; PULSE 83; RESP 18
[2019-01-20] MEDS: ONDANSETRON 4 MG INJ IV PRN (23:58)
[2019-01-21] MEDS: HYDROCODONE/APAP (5/325) TAB PO PRN ×2 (02:08→10:52)
[2019-01-21] MEDS: ACETAMINOPHEN 325 MG TAB PO PRN (02:09)
[2019-01-21 02:10] VITALS: BP 99/57; PULSE 102; RESP 18
[2019-01-21] MEDS: MEROPENEM 1 GM/50ML(PMX) 50 ML IVPB SCH ×3 (05:08→20:07)
[2019-01-21] MEDS: morphine 2 MG INJ IV PRN ×4 (05:17→20:04)
--- NOTE | 2019-01-21 06:41 | PN ---
Date/Time of Note Date/Time of Note DATE: 01/21/19 TIME: 06:40 Assessment/Plan Lines/Catheters IV Catheter Type (from [facility]): Saline Lock Mullen in Place (from [facility]): No Assessment/Plan Assessment/Plan enterobacter and strep b. abx per ID. continue dressing changes Exam/Review of Systems Vital Signs Vitals Vital Signs Date Temp Pulse Resp B/P (MAP) Pulse Ox O2 O2 Flow FiO2 Time Delivery Rate 01/21/19 99.0 02:54 01/21/19 102 18 99/57 (71) 98 02:10 01/20/19 Room Air 14:00 Intake and Output 01/20/19 01/20/19 01/21/19 1515:00 23:00 07:00 IntakeIntake Total 963 ml 1780 ml OutputOutput Total 1400 ml BalanceBalance 963 ml 380 ml Results Result Diagram: 01/21/19 0539 01/21/19 0539 YOLANDA GONZALEZ MD Jan 21, 2019 06:40
[2019-01-21 07:15] VITALS: BP 92/54; PULSE 76; RESP 16
[2019-01-21] MEDS: ASCORBIC ACID 500 MG TAB PO SCH (09:24)
[2019-01-21] MEDS: MUPIROCIN 2% 22 GM OINT TOP SCH ×2 (09:24→20:09)
[2019-01-21] MEDS: MULTIVITAMINS/MINERALS TAB PO SCH (09:24)
[2019-01-21] MEDS: CHOLECALCIFEROL 2,000 UNIT CAP PO SCH (09:24)
[2019-01-21] MEDS: SOD FERRIC GLUC COMPLX 125 MG in SOD CHLORIDE 0.9% 100 ML IVPB SCH (13:36)
[2019-01-21 14:23] VITALS: BP 90/49; PULSE 89; RESP 16
[2019-01-21] MEDS: HEPARIN 25000 UNITS/250 ML 250 ML IV SCH (16:45)
--- NOTE | 2019-01-21 17:10 | PN ---
Date/Time of Note Date/Time of Note DATE: 01/21/19 TIME: 17:06 Assessment/Plan VTE Prophylaxis Risk score (from Ns)>0 risk: 5 SCD applied (from [facility]s): No SCD contraindicated: low risk/ambulating Pharmacological prophylaxis: LMWH Lines/Catheters IV [facility] Type (from [facility]): Saline Lock Urinary Cath still in place: No Assessment/Plan Hospital Course Hospitalist coverage/hospital course Assessment and plan 1. Right lower extremity infection, continue antibiotics. Debridement as needed. Wound VAC 2. Complicated right lower extremity DVT with compartment syndrome and acute limb ischemia status post fasciotomy and thrombectomy 3. MRSA nares 4. Anemia 5. Recent conversion disorder 6. Nausea rule out GERD consider GERD 7. Hypercoagulable disorder? For outpatient re-eval 8. ASD defect. Continue anticoagulation 9. Acute compartment syndrome 10. Acute right lower extremity limb ischemia Subjective: Nausea without any known aggravating or relieving factors. Denies constipation. Objective: Vital signs stable Physical exam No pallor icterus Regular no murmur gallop Clear Bowel sounds present nontender nondistended no RRG No edema; right leg dressed pulses present Result Diagram: 01/21/19 0539 01/21/19 0539 Results 24hrs Laboratory Tests Test 01/20/19 22:38 01/21/19 05:39 Activated Partial Thromboplast Time 95.5 *H 96.6 *H White Blood Count 12.4 #H Red Blood Count 3.55 L Hemoglobin 8.6 L Hematocrit 27.9 L Mean Corpuscular Volume 78.6 L Mean Corpuscular Hemoglobin 24.2 L Mean Corpuscular Hemoglobin Concent 30.8 L Red Cell Distribution Width 17.4 H Platelet Count 600 H Mean Platelet Volume 9.6 Immature Granulocytes % 0.500 H Neutrophils % 64.8 Lymphocytes % 26.7 Monocytes % 5.3 Eosinophils % 1.6 Basophils % 1.1 Nucleated Red Blood Cells % 0.0 Immature Granulocytes # 0.060 H Neutrophils # 8.0 H Lymphocytes # 3.3 H Monocytes # 0.7 Eosinophils # 0.2 Basophils # 0.1 Nucleated Red Blood Cells # 0.0 Sodium Level 142 Potassium Level 3.7 Chloride Level 110 Carbon Dioxide Level 25 Anion Gap 7 Blood Urea Nitrogen 2 L Creatinine 0.60 Est Glomerular Filtrat Rate mL/min > 60 Glucose Level 99 Calcium Level 8.4 Phosphorus Level 4.5 Magnesium Level 2.1 Exam/Review of Systems Exam Vitals Vital Signs Date Temp Pulse Resp B/P (MAP) Pulse Ox O2 O2 Flow FiO2 Time Delivery Rate 01/21/19 98.4 89 16 90/49 (63) 98 Room Air 14:23 Intake and Output 01/20/19 01/20/19 01/21/19 1515:00 23:00 07:00 IntakeIntake Total 963 ml 1780 ml OutputOutput Total 1400 ml BalanceBalance 963 ml 380 ml Results Results 24hrs Laboratory Tests Test 01/20/19 22:38 01/21/19 05:39 Activated Partial Thromboplast Time 95.5 *H 96.6 *H White Blood Count 12.4 #H Red Blood Count 3.55 L Hemoglobin 8.6 L Hematocrit 27.9 L Mean Corpuscular Volume 78.6 L Mean Corpuscular Hemoglobin 24.2 L Mean Corpuscular Hemoglobin Concent 30.8 L Red Cell Distribution Width 17.4 H Platelet Count 600 H Mean Platelet Volume 9.6 Immature Granulocytes % 0.500 H Neutrophils % 64.8 Lymphocytes % 26.7 Monocytes % 5.3 Eosinophils % 1.6 Basophils % 1.1 Nucleated Red Blood Cells % 0.0 Immature Granulocytes # 0.060 H Neutrophils # 8.0 H Lymphocytes # 3.3 H Monocytes # 0.7 Eosinophils # 0.2 Basophils # 0.1 Nucleated Red Blood Cells # 0.0 Sodium Level 142 Potassium Level 3.7 Chloride Level 110 Carbon Dioxide Level 25 Anion Gap 7 Blood Urea Nitrogen 2 L Creatinine 0.60 Est Glomerular Filtrat Rate mL/min > 60 Glucose Level 99 Calcium Level 8.4 Phosphorus Level 4.5 Magnesium Level 2.1 Medications Medication Current Medications IV Flush (NS 3 ml) 3 ml PER PROTOCOL IV ; Start 01/18/19 at 01:30 Ondansetron HCl (Zofran Inj) 4 mg Q6H PRN IV NAUSEA/VOMITING Last administered on 01/20/19at 23:58; Admin Dose 4 MG; Start 01/18/19 at 01:30 Acetaminophen (Tylenol Tab) 650 mg Q6H PRN PO .PAIN 1-3 OR TEMP Last administered on 01/21/19at 02:09; Admin Dose 650 MG; Start 01/18/19 at 01:30 Acetaminophen/ Hydrocodone Bitart ([place] (5/325)) 1 tab Q6H PRN PO .MOD PAIN 4- 6 Last administered on 01/21/19 10:52; Admin Dose 1 TAB; Start 01/18/19 at 01:30 Morphine Sulfate (morphine) 2 mg Q4H PRN IV .SEVERE PAIN 7-10 Last administered on 01/21/19 15:16; Admin Dose 2 MG; Start 01/18/19 at 01:30 Docusate Sodium (Colace) 100 mg Q12H PRN PO .CONSTIPATION; Start 01/18/19 at 01:30 Magnesium Hydroxide (Milk Of Mag) 30 ml DAILY PRN PO .CONSTIPATION; Start 01/18/19 at 01:30 Lorazepam (Ativan) 0.5 mg Q6H PRN IV ANXIETY; Start 01/18/19 at 01:30 Albuterol/ Ipratropium (Duoneb) 3 ml Q4H RESP THERAPY PRN HHN SHORTNESS OF BREATH; Start 01/18/19 at 01:30 Hydralazine HCl (Apresoline) 10 mg Q6H PRN IV ELEVATED BLOOD PRESSURE; Start 01/18/19 at 01:30 Nitroglycerin (Nitroglycerin (Sl Tab) 0.4 Mg) 1 tab Q5M PRN SL ANGINA; Start 01/18/19 at 01:30 Ascorbic Acid (Vitamin C) 500 mg DAILY PO Last administered on 01/21/19 09:24; Admin Dose 500 MG; Start 01/18/19 at 09:00 Hydromorphone HCl (Dilaudid) 4 mg Q4H PRN PO MODERATE PAIN LEVEL 4-6 Last administered on 01/20/19at 06:00; Admin Dose 4 MG; Start 01/18/19 at 03:00 Multivitamins/ Minerals (Theragran-M) 1 tab DAILY PO Last administered on 01/21/19 09:24; Admin Dose 1 TAB; Start 01/18/19 at 09:00 Heparin Sodium (Porcine) (Heparin (1000 Units/ml)) 5,400 unit PER PROTOCOL PRN IV aPTT<47; Start 01/18/19 at 14:30 Heparin Sodium (Porcine) (Heparin (1000 Units/ml)) 2,700 unit PER PROTOCOL PRN IV aPTT<47-57; Start 01/18/19 at 14:30 Heparin Sodium (Porcine) 250 ml @ 12 mls/hr PER PROTOCOL IV Last administered on 01/21/19 16:45; Admin Dose 11.5 MLS/HR; Start 01/18/19 at 15:00 Mupirocin (Bactroban) 1 applic BID TOP Last administered on 01/21/19 09:24; Admin Dose 1 APPLIC; Start 01/19/19 at 09:00 Ferric Sodium Gluconate Complex 125 mg/Sodium Chloride 110 ml @ 110 mls/hr DAILY@1300 IVPB Last administered on 01/21/19 13:36; Admin Dose 110 MLS/HR; Start 01/20/19 at 13:00; Stop 01/24/19 at 13:59 Cholecalciferol (Vitamin D) 2,000 unit DAILY PO Last administered on 01/21/19 09:24; Admin Dose 2,000 UNIT; Start 01/20/19 at 09:00 Meropenem/Sodium Chloride 50 ml @ 100 mls/hr Q8 IVPB Last administered on 01/21/19 15:14; Admin Dose 100 MLS/HR; Start 01/20/19 at 14:00 NEETU BARON MD Jan 21, 2019 17:10
[2019-01-21] MEDS ORDERED: HYDROCODONE/APAP (10/325) TAB PO PRN (17:30)
--- NOTE | 2019-01-21 18:39 | CONS ---
Assessment/Plan Assessment/Plan Hospital Course (Demo Recall) 1200 No acute changes overnight, alert, feels ok, no fevers Microbiology: Blood cultures remain negative MRSA swab came back positive Wound culture growing Enterobacter and strep Antimicrobials: Merrem Physical examination: Well-developed middle-aged woman who is awake in no distress. Head atraumatic normocephalic neck is supple chest rise symmetrical breath sounds diminished bases heart S1-S2 abdomen soft bowel sounds present. Extremities: With right lower extremity dressing intact Assessment: 1. Systemic inflammatory response syndrome 2. Right lower extremity infected wound 3. MRSA nares colonization 4. 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 Atrial septal defect Plan: Stable, continue antibiotics topical Bactroban to nares, f/u vascular rec-s Consultation Date/Type/Reason Admit Date/Time Jan 18, 2019 at 00:20 Initial Consult Date Type of Consult id Date/Time of Note DATE: 01/21/19 TIME: 18:38 Exam/Review of Systems Exam Vitals Vital Signs Date Temp Pulse Resp B/P (MAP) Pulse Ox O2 O2 Flow FiO2 Time Delivery Rate 01/21/19 98.4 89 16 90/49 (63) 98 Room Air 14:23 Intake and Output 01/20/19 01/20/19 01/21/19 1414:59 22:59 06:59 IntakeIntake Total 963 ml 1780 ml OutputOutput Total 1400 ml BalanceBalance 963 ml 380 ml Results Result Diagram: 01/21/19 0539 01/21/19 0539 Results 24hrs Laboratory Tests Test 01/20/19 22:38 01/21/19 05:39 Activated Partial Thromboplast Time 95.5 *H 96.6 *H White Blood Count 12.4 #H Red Blood Count 3.55 L Hemoglobin 8.6 L Hematocrit 27.9 L Mean Corpuscular Volume 78.6 L Mean Corpuscular Hemoglobin 24.2 L Mean Corpuscular Hemoglobin Concent 30.8 L Red Cell Distribution Width 17.4 H Platelet Count 600 H Mean Platelet Volume 9.6 Immature Granulocytes % 0.500 H Neutrophils % 64.8 Lymphocytes % 26.7 Monocytes % 5.3 Eosinophils % 1.6 Basophils % 1.1 Nucleated Red Blood Cells % 0.0 Immature Granulocytes # 0.060 H Neutrophils # 8.0 H Lymphocytes # 3.3 H Monocytes # 0.7 Eosinophils # 0.2 Basophils # 0.1 Nucleated Red Blood Cells # 0.0 Sodium Level 142 Potassium Level 3.7 Chloride Level 110 Carbon Dioxide Level 25 Anion Gap 7 Blood Urea Nitrogen 2 L Creatinine 0.60 Est Glomerular Filtrat Rate mL/min > 60 Glucose Level 99 Calcium Level 8.4 Phosphorus Level 4.5 Magnesium Level 2.1 Medications Medication Current Medications IV Flush (NS 3 ml) 3 ml PER PROTOCOL IV ; Start 01/18/19 at 01:30 Ondansetron HCl (Zofran Inj) 4 mg Q6H PRN IV NAUSEA/VOMITING Last administered on 01/20/19at 23:58; Admin Dose 4 MG; Start 01/18/19 at 01:30 Acetaminophen (Tylenol Tab) 650 mg Q6H PRN PO .PAIN 1-3 OR TEMP Last administered on 01/21/19at 02:09; Admin Dose 650 MG; Start 01/18/19 at 01:30 Morphine Sulfate (morphine) 2 mg Q4H PRN IV .SEVERE PAIN 7-10 Last administered on 01/21/19at 15:16; Admin Dose 2 MG; Start 01/18/19 at 01:30 Docusate Sodium (Colace) 100 mg Q12H PRN PO .CONSTIPATION; Start 01/18/19 at 01:30 Magnesium Hydroxide (Milk Of Mag) 30 ml DAILY PRN PO .CONSTIPATION; Start 01/18/19 at 01:30 Lorazepam (Ativan) 0.5 mg Q6H PRN IV ANXIETY; Start 01/18/19 at 01:30 Albuterol/ Ipratropium (Duoneb) 3 ml Q4H RESP THERAPY PRN HHN SHORTNESS OF BREATH; Start 01/18/19 at 01:30 Hydralazine HCl (Apresoline) 10 mg Q6H PRN IV ELEVATED BLOOD PRESSURE; Start 01/18/19 at 01:30 Nitroglycerin (Nitroglycerin (Sl Tab) 0.4 Mg) 1 tab Q5M PRN SL ANGINA; Start 01/18/19 at 01:30 Ascorbic Acid (Vitamin C) 500 mg DAILY PO Last administered on 01/21/19at 09:24; Admin Dose 500 MG; Start 01/18/19 at 09:00 Hydromorphone HCl (Dilaudid) 4 mg Q4H PRN PO MODERATE PAIN LEVEL 4-6 Last administered on 01/20/19 06:00; Admin Dose 4 MG; Start 01/18/19 at 03:00 Multivitamins/ Minerals (Theragran-M) 1 tab DAILY PO Last administered on 01/21/19 09:24; Admin Dose 1 TAB; Start 01/18/19 at 09:00 Heparin Sodium (Porcine) (Heparin (1000 Units/ml)) 5,400 unit PER PROTOCOL PRN IV aPTT<47; Start 01/18/19 at 14:30 Heparin Sodium (Porcine) (Heparin (1000 Units/ml)) 2,700 unit PER PROTOCOL PRN IV aPTT<47-57; Start 01/18/19 at 14:30 Heparin Sodium (Porcine) 250 ml @ 12 mls/hr PER PROTOCOL IV Last administered on 01/21/19 16:45; Admin Dose 11.5 MLS/HR; Start 01/18/19 at 15:00 Mupirocin (Bactroban) 1 applic BID TOP Last administered on 01/21/19 09:24; Admin Dose 1 APPLIC; Start 01/19/19 at 09:00 Ferric Sodium Gluconate Complex 125 mg/Sodium Chloride 110 ml @ 110 mls/hr DAILY@1300 IVPB Last administered on 01/21/19 13:36; Admin Dose 110 MLS/HR; Start 01/20/19 at 13:00; Stop 01/24/19 at 13:59 Cholecalciferol (Vitamin D) 2,000 unit DAILY PO Last administered on 01/21/19 09:24; Admin Dose 2,000 UNIT; Start 01/20/19 at 09:00 Meropenem/Sodium Chloride 50 ml @ 100 mls/hr Q8 IVPB Last administered on 15:14; Admin Dose 100 MLS/HR; Start 01/20/19 at 14:00 Acetaminophen/ Hydrocodone Bitart ([place] (10/325)) 1 tab Q4H PRN PO MODERATE PAIN LEVEL 4-6; Start 01/21/19 at 17:30 Lactobacillus Acidophilus/ Rhamnosus (Culturelle) 1 cap BID PO ; Start 01/21/19 at 21:00 TIFFANIE DEVINE NP Jan 21, 2019 18:39
[2019-01-21] MEDS: LACTOBACILLUS RHAMNOSUS CAP PO SCH (20:10)
[2019-01-21 20:30] VITALS: BP 95/50; PULSE 74; RESP 20
[2019-01-21] MEDS: HYDROmorphONE 2 MG TAB PO PRN (22:28)
[2019-01-22] MEDS: morphine 2 MG INJ IV PRN ×4 (01:10→21:01)
[2019-01-22 02:30] VITALS: BP 91/52; PULSE 81; RESP 18
[2019-01-22] MEDS: MEROPENEM 1 GM/50ML(PMX) 50 ML IVPB SCH ×3 (05:02→23:11)
[2019-01-22] MEDS: DOCUSATE SODIUM 100 MG CAP PO PRN (05:03)
[2019-01-22] MEDS: HYDROmorphONE 2 MG TAB PO PRN ×3 (05:03→23:15)
[2019-01-22 08:30] VITALS: BP_SYST 88; BP_SYST 92; BP_DIAS 46; BP_DIAS 49; PULSE 83; PULSE 87; RESP 16
[2019-01-22] MEDS: CHOLECALCIFEROL 2,000 UNIT CAP PO SCH (09:23)
[2019-01-22] MEDS: ASCORBIC ACID 500 MG TAB PO SCH (09:23)
[2019-01-22] MEDS: MULTIVITAMINS/MINERALS TAB PO SCH (09:23)
[2019-01-22] MEDS: PANTOPRAZOLE (EC) 40 MG TAB PO SCH ×2 (09:23→18:00)
[2019-01-22] MEDS: LACTOBACILLUS RHAMNOSUS CAP PO SCH ×2 (09:23→21:01)
[2019-01-22] MEDS: MUPIROCIN 2% 22 GM OINT TOP SCH ×2 (09:24→21:06)
--- NOTE | 2019-01-22 10:04 | PN ---
Date/Time of Note Date/Time of Note DATE: 01/22/19 TIME: 10:01 Assessment/Plan VTE Prophylaxis Risk score (from Ns)>0 risk: 5 SCD applied (from [facility]): No SCD contraindicated: low risk/ambulating Pharmacological prophylaxis: LMWH, heparin Lines/Catheters IV C[facility]ter Type (from [facility] [place] Urinary Cath still in place: No Assessment/Plan Hospital Course Hospitalist coverage A/P 1. Rt lwr ext infection, cont antibiotics. Debridement/ Wound VAC prn 2. Complicated rt lwr ext DVT w compartment syndrome and acute limb ischemia, sp fasciotomy and thrombectomy 3. MRSA nares 4. Anemia 5. Recent conversion disorder 6. Nausea GERD. chr Gastritis; start ppi 7. Hypercoagulable disorder? For outpatient re-eval 8. ASD defect. Continue anticoagulation 9. Acute compartment syndrome 10. Acute right lower extremity limb ischemia S: 01/21 nausea without any known aggravating or relieving factors. Denies constipation. 01/22: No distress. On heparin drip O: Vital signs stable PE No pallor icterus Reg no m/r/g Clear Bs+ nt nd no RRG No edema; rt leg dressed; pulses present Result Diagram: 01/22/195 01/22/19 0444 Results 24hrs Laboratory Tests Test 01/22/19 04:44 01/22/19 04:45 Activated Partial Thromboplast Time 100.0 *H Sodium Level 141 Potassium Level 3.6 Chloride Level 108 Carbon Dioxide Level 27 Anion Gap 6 Blood Urea Nitrogen 3 L Creatinine 0.63 Est Glomerular Filtrat Rate mL/min > 60 Glucose Level 111 Calcium Level 8.5 White Blood Count 11.8 H Red Blood Count 3.44 L Hemoglobin 8.2 L Hematocrit 27.2 L Mean Corpuscular Volume 79.1 L Mean Corpuscular Hemoglobin 23.8 L Mean Corpuscular Hemoglobin Concent 30.1 L Red Cell Distribution Width 17.7 H Platelet Count 610 H Mean Platelet Volume 10.1 Immature Granulocytes % 0.700 H Neutrophils % 53.8 Lymphocytes % 32.9 Monocytes % 6.4 Eosinophils % 4.9 Basophils % 1.3 Nucleated Red Blood Cells % 0.0 Immature Granulocytes # 0.080 H Neutrophils # 6.3 Lymphocytes # 3.9 H Monocytes # 0.8 Eosinophils # 0.6 H Basophils # 0.2 H Nucleated Red Blood Cells # 0.0 Phosphorus Level 4.0 Magnesium Level 2.2 Exam/Review of Systems Exam Vitals Vital Signs Date Temp Pulse Resp B/P (MAP) Pulse Ox O2 O2 Flow FiO2 Time Delivery Rate 01/22/19 98.6 83 16 88/46 (60) 97 Room Air 08:30 Intake and Output 01/21/19 01/21/19 01/22/19 1515:00 23:00 07:00 IntakeIntake Total 370 ml 600 ml 1490 ml BalanceBalance 370 ml 600 ml 1490 ml Results Results 24hrs Laboratory Tests Test 01/22/19 04:44 01/22/19 04:45 Activated Partial Thromboplast Time 100.0 *H Sodium Level 141 Potassium Level 3.6 Chloride Level 108 Carbon Dioxide Level 27 Anion Gap 6 Blood Urea Nitrogen 3 L Creatinine 0.63 Est Glomerular Filtrat Rate mL/min > 60 Glucose Level 111 Calcium Level 8.5 White Blood Count 11.8 H Red Blood Count 3.44 L Hemoglobin 8.2 L Hematocrit 27.2 L Mean Corpuscular Volume 79.1 L Mean Corpuscular Hemoglobin 23.8 L Mean Corpuscular Hemoglobin Concent 30.1 L Red Cell Distribution Width 17.7 H Platelet Count 610 H Mean Platelet Volume 10.1 Immature Granulocytes % 0.700 H Neutrophils % 53.8 Lymphocytes % 32.9 Monocytes % 6.4 Eosinophils % 4.9 Basophils % 1.3 Nucleated Red Blood Cells % 0.0 Immature Granulocytes # 0.080 H Neutrophils # 6.3 Lymphocytes # 3.9 H Monocytes # 0.8 Eosinophils # 0.6 H Basophils # 0.2 H Nucleated Red Blood Cells # 0.0 Phosphorus Level 4.0 Magnesium Level 2.2 Medications Medication Current Medications IV Flush (NS 3 ml) 3 ml PER PROTOCOL IV ; Start 01/18/19 at 01:30 Ondansetron HCl (Zofran Inj) 4 mg Q6H PRN IV NAUSEA/VOMITING Last administered on 01/20/19at 23:58; Admin Dose 4 MG; Start 01/18/19 at 01:30 Acetaminophen (Tylenol Tab) 650 mg Q6H PRN PO .PAIN 1-3 OR TEMP Last administered on 01/21/19at 02:09; Admin Dose 650 MG; Start 01/18/19 at 01:30 Morphine Sulfate (morphine) 2 mg Q4H PRN IV .SEVERE PAIN 7-10 Last administered on 01/22/19 01:10; Admin Dose 2 MG; Start 01/18/19 at 01:30 Docusate Sodium (Colace) 100 mg Q12H PRN PO .CONSTIPATION Last administered on 01/22/19 05:03; Admin Dose 100 MG; Start 01/18/19 at 01:30 Magnesium Hydroxide (Milk Of Mag) 30 ml DAILY PRN PO .CONSTIPATION; Start 01/18/19 at 01:30 Lorazepam (Ativan) 0.5 mg Q6H PRN IV ANXIETY; Start 01/18/19 at 01:30 Albuterol/ Ipratropium (Duoneb) 3 ml Q4H RESP THERAPY PRN HHN SHORTNESS OF BREATH; Start 01/18/19 at 01:30 Hydralazine HCl (Apresoline) 10 mg Q6H PRN IV ELEVATED BLOOD PRESSURE; Start 01/18/19 at 01:30 Nitroglycerin (Nitroglycerin (Sl Tab) 0.4 Mg) 1 tab Q5M PRN SL ANGINA; Start 01/18/19 at 01:30 Ascorbic Acid (Vitamin C) 500 mg DAILY PO Last administered on 01/22/19 09:23; Admin Dose 500 MG; Start 01/18/19 at 09:00 Hydromorphone HCl (Dilaudid) 4 mg Q4H PRN PO MODERATE PAIN LEVEL 4-6 Last administered on 01/22/19 05:03; Admin Dose 4 MG; Start 01/18/19 at 03:00 Multivitamins/ Minerals (Theragran-M) 1 tab DAILY PO Last administered on 01/22/19 09:23; Admin Dose 1 TAB; Start 01/18/19 at 09:00 Heparin Sodium (Porcine) (Heparin (1000 Units/ml)) 5,400 unit PER PROTOCOL PRN IV aPTT<47; Start 01/18/19 at 14:30 Heparin Sodium (Porcine) (Heparin (1000 Units/ml)) 2,700 unit PER PROTOCOL PRN IV aPTT<47-57; Start 01/18/19 at 14:30 Heparin Sodium (Porcine) 250 ml @ 12 mls/hr PER PROTOCOL IV Last administered on 01/21/19 16:45; Admin Dose 11.5 MLS/HR; Start 01/18/19 at 15:00 Mupirocin (Bactroban) 1 applic BID TOP Last administered on 01/22/19 09:24; Admin Dose 1 APPLIC; Start 01/19/19 at 09:00 Ferric Sodium Gluconate Complex 125 mg/Sodium Chloride 110 ml @ 110 mls/hr DAILY@1300 IVPB Last administered on 01/21/19 13:36; Admin Dose 110 MLS/HR; Start 01/20/19 at 13:00; Stop 01/24/19 at 13:59 Cholecalciferol (Vitamin D) 2,000 unit DAILY PO Last administered on 01/22/19 09:23; Admin Dose 2,000 UNIT; Start 01/20/19 at 09:00 Meropenem/Sodium Chloride 50 ml @ 100 mls/hr Q8 IVPB Last administered on 01/22/19 05:02; Admin Dose 100 MLS/HR; Start 01/20/19 at 14:00 Acetaminophen/ Hydrocodone Bitart ([place] (10/325)) 1 tab Q4H PRN PO MODERATE PAIN LEVEL 4-6 Last administered on 01/21/19 18:40; Admin Dose 1 TAB; Start 01/21/19 at 17:30 Lactobacillus Acidophilus/ Rhamnosus (Culturelle) 1 cap BID PO Last administered on 01/22/19 09:23; Admin Dose 1 CAP; Start 01/21/19 at 21:00 Pantoprazole (Protonix Tab) 40 mg BID@06,18 PO Last administered on 01/22/19 09:23; Admin Dose 40 MG; Start 01/22/19 at 09:00 NEETU BARON MD Jan 22, 2019 10:04
[2019-01-22] MEDS: SOD FERRIC GLUC COMPLX 125 MG in SOD CHLORIDE 0.9% 100 ML IVPB SCH (12:23)
--- NOTE | 2019-01-22 13:05 | CONS ---
Assessment/Plan Assessment/Plan Hospital Course (Demo Recall) ID PROGRESS NOTE CURRENT ABX: DAY # =>MERREM 01/22/195 01/22/19 0444 24H INTERVAL SUMMARY * a/a/o, resting in bed, no fevers, requesting the air conditioner turned off she is cold, VSS, NAD, without dyspnea MICRO/OTHER * 01/18/19 BCx (-) * (+)MRSA Nres * 01/18/19 WOUND CX: (+) WOUND CULTURE Final Organism 1 ENTEROBACTER CLOACAE QUANTITY SCANT GROWTH Organism 2 STREP AGALACTIAE - (GROUP B) QUANTITY SCANT GROWTH Organism 3 CORYNEBACTER JEIKEIUM (GRP JK) QUANTITY 2+ E CLOACAE M.I.C. RX --------- --- CEFOTAXIME S CIPROFLOXACIN <=0.25 S GENTAMICIN <=1 S LEVOFLOXACIN <=0.12 S TOBRAMYCIN <=1 S TRIMETHOPRIM/SULFAMETHOXAZOLE <=20 S WOUND CULTURE Final (continued) S AGA(GR B C JEIKEIUM Zone Size RX Zone Size RX --------- --- --------- --- * AMPICILLIN R * AMPICILLIN/SULBACTAM R * CEFAZOLIN R * CEFOTAXIME S R * CEFUROXIME R * CIPROFLOXACIN R * CLINDAMYCIN I R * ERYTHROMYCIN I R * PENICILLIN S R * VANCOMYCIN S S PHYSICAL EXAMINATION: GENERAL: VSS, NAD HEENT: AT, NC, anicteric, NECK: Supple, CHEST: Equal chest rise bilaterally, without dyspnea on observation HEART: Pulse RRR ABDOMEN: Soft : deferred EXTREMITIES: Warm, dry == RLEXT wound dsg C/intact scant serosanguinous drainage noted SKIN: No rash, no diaphoresis ID ASSESSMENT 38 yo F admit with: 1. Systemic inflammatory response syndrome 2. Right lower extremity infected wound 3. MRSA nares colonization 4. 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 Atrial septal defect (+)MRSA Nares ABX ALLERGIES: None to ABX INVASIVES: PIV CURRENT ABX: DAY # > MERREM ID RECOMMENDATIONS/PLAN: 1. Continue Merrem or change to Ertapenem upon DC for once daily dosing 2. Start VANCO IV * NOTE: "JK" IS A TRUE OPPORTUNISTIC WOUND PATHOGEN with biofilm and should be treated Organism 3 CORYNEBACTER ANTHONYIUM (GRP JK) QUANTITY 2+ Consultation Date/Type/Reason Admit Date/Time Jan 18, 2019 at 00:20 Initial Consult Date Date/Time of Note DATE: 01/22/19 TIME: 13:05 Exam/Review of Systems Exam Vitals Vital Signs Date Temp Pulse Resp B/P (MAP) Pulse Ox O2 O2 Flow FiO2 Time Delivery Rate 01/22/19 98.6 83 16 88/46 (60) 97 Room Air 08:30 Intake and Output 01/21/19 01/21/19 01/22/19 1515:00 23:00 07:00 IntakeIntake Total 370 ml 600 ml 1490 ml BalanceBalance 370 ml 600 ml 1490 ml Results Result Diagram: 01/22/19 0445 01/22/19 0444 Results 24hrs Laboratory Tests Test 01/22/19 04:44 01/22/19 04:45 Activated Partial Thromboplast Time 100.0 *H Sodium Level 141 Potassium Level 3.6 Chloride Level 108 Carbon Dioxide Level 27 Anion Gap 6 Blood Urea Nitrogen 3 L Creatinine 0.63 Est Glomerular Filtrat Rate mL/min > 60 Glucose Level 111 Calcium Level 8.5 White Blood Count 11.8 H Red Blood Count 3.44 L Hemoglobin 8.2 L Hematocrit 27.2 L Mean Corpuscular Volume 79.1 L Mean Corpuscular Hemoglobin 23.8 L Mean Corpuscular Hemoglobin Concent 30.1 L Red Cell Distribution Width 17.7 H Platelet Count 610 H Mean Platelet Volume 10.1 Immature Granulocytes % 0.700 H Neutrophils % 53.8 Lymphocytes % 32.9 Monocytes % 6.4 Eosinophils % 4.9 Basophils % 1.3 Nucleated Red Blood Cells % 0.0 Immature Granulocytes # 0.080 H Neutrophils # 6.3 Lymphocytes # 3.9 H Monocytes # 0.8 Eosinophils # 0.6 H Basophils # 0.2 H Nucleated Red Blood Cells # 0.0 Phosphorus Level 4.0 Magnesium Level 2.2 Medications Medication Current Medications IV Flush (NS 3 ml) 3 ml PER PROTOCOL IV ; Start 01/18/19 at 01:30 Ondansetron HCl (Zofran Inj) 4 mg Q6H PRN IV NAUSEA/VOMITING Last administered on 01/20/19 23:58; Admin Dose 4 MG; Start 01/18/19 at 01:30 Acetaminophen (Tylenol Tab) 650 mg Q6H PRN PO .PAIN 1-3 OR TEMP Last administered on 01/21/19 02:09; Admin Dose 650 MG; Start 01/18/19 at 01:30 Morphine Sulfate (morphine) 2 mg Q4H PRN IV .SEVERE PAIN 7-10 Last administered on 01/22/19 11:40; Admin Dose 2 MG; Start 01/18/19 at 01:30 Docusate Sodium (Colace) 100 mg Q12H PRN PO .CONSTIPATION Last administered on 01/22/19 05:03; Admin Dose 100 MG; Start 01/18/19 at 01:30 Magnesium Hydroxide (Milk Of Mag) 30 ml DAILY PRN PO .CONSTIPATION; Start 01/18/19 at 01:30 Lorazepam (Ativan) 0.5 mg Q6H PRN IV ANXIETY; Start 01/18/19 at 01:30 Albuterol/ Ipratropium (Duoneb) 3 ml Q4H RESP THERAPY PRN HHN SHORTNESS OF BREATH; Start 01/18/19 at 01:30 Hydralazine HCl (Apresoline) 10 mg Q6H PRN IV ELEVATED BLOOD PRESSURE; Start 01/18/19 at 01:30 Nitroglycerin (Nitroglycerin (Sl Tab) 0.4 Mg) 1 tab Q5M PRN SL ANGINA; Start 01/18/19 at 01:30 Ascorbic Acid (Vitamin C) 500 mg DAILY PO Last administered on 01/22/19 09:23; Admin Dose 500 MG; Start 01/18/19 at 09:00 Hydromorphone HCl (Dilaudid) 4 mg Q4H PRN PO MODERATE PAIN LEVEL 4-6 Last administered on 01/22/19 12:23; Admin Dose 4 MG; Start 01/18/19 at 03:00 Multivitamins/ Minerals (Theragran-M) 1 tab DAILY PO Last administered on 01/22/19 09:23; Admin Dose 1 TAB; Start 01/18/19 at 09:00 Heparin Sodium (Porcine) (Heparin (1000 Units/ml)) 5,400 unit PER PROTOCOL PRN IV aPTT<47; Start 01/18/19 at 14:30 Heparin Sodium (Porcine) (Heparin (1000 Units/ml)) 2,700 unit PER PROTOCOL PRN IV aPTT<47-57; Start 01/18/19 at 14:30 Heparin Sodium (Porcine) 250 ml @ 12 mls/hr PER PROTOCOL IV Last administered on 01/21/19 16:45; Admin Dose 11.5 MLS/HR; Start 01/18/19 at 15:00 Mupirocin (Bactroban) 1 applic BID TOP Last administered on 01/22/19 09:24; Admin Dose 1 APPLIC; Start 01/19/19 at 09:00 Ferric Sodium Gluconate Complex 125 mg/Sodium Chloride 110 ml @ 110 mls/hr DAILY@1300 IVPB Last administered on 01/22/19 12:23; Admin Dose 110 MLS/HR; Start 01/20/19 at 13:00; Stop 01/24/19 at 13:59 Cholecalciferol (Vitamin D) 2,000 unit DAILY PO Last administered on 01/22/19 09:23; Admin Dose 2,000 UNIT; Start 01/20/19 at 09:00 Meropenem/Sodium Chloride 50 ml @ 100 mls/hr Q8 IVPB Last administered on 01/22/19 05:02; Admin Dose 100 MLS/HR; Start 01/20/19 at 14:00 Acetaminophen/ Hydrocodone Bitart ([place] (10/325)) 1 tab Q4H PRN PO MODERATE PAIN LEVEL 4-6 Last administered on 01/21/19 18:40; Admin Dose 1 TAB; Start at 17:30 Lactobacillus Acidophilus/ Rhamnosus (Culturelle) 1 cap BID PO Last administered on 01/22/19 09:23; Admin Dose 1 CAP; Start 01/21/19 at 21:00 Pantoprazole (Protonix Tab) 40 mg BID@06,18 PO Last administered on 01/22/19 09:23; Admin Dose 40 MG; Start 01/22/19 at 09:00 MITCH COLLIER NP Jan 22, 2019 13:05
[2019-01-22] MEDS: HEPARIN 25000 UNITS/250 ML 250 ML IV SCH (14:15)
[2019-01-22 14:45] VITALS: BP 106/58; PULSE 92; RESP 18
[2019-01-22] MEDS ORDERED: VANCOMYCIN IV PER PHARMACY XX SCH (16:00)
[2019-01-22] MEDS ORDERED: VANCOMYCIN HCL 1.25 GM in SOD CHLORIDE 0.9% 250 ML IVPB SCH (18:00)
[2019-01-22 19:47] VITALS: BP 95/51; PULSE 90; RESP 17
[2019-01-23 01:55] VITALS: BP 85/43; PULSE 96; RESP 17
[2019-01-23] MEDS: VANCOMYCIN 1 GM 250 ML IVPB SCH ×3 (01:59→19:47)
[2019-01-23 02:06] VITALS: BP 103/53; PULSE 94
[2019-01-23] MEDS: morphine 2 MG INJ IV PRN ×3 (02:37→12:24)
[2019-01-23] MEDS ORDERED: MICONAZOLE 2% 30 GM CR TOP ONE (03:30)
[2019-01-23] MEDS: PANTOPRAZOLE (EC) 40 MG TAB PO SCH ×2 (06:21→17:33)
[2019-01-23] MEDS: MEROPENEM 1 GM/50ML(PMX) 50 ML IVPB SCH ×3 (06:21→22:45)
[2019-01-23] MEDS: CHOLECALCIFEROL 2,000 UNIT CAP PO SCH (08:05)
[2019-01-23] MEDS: ASCORBIC ACID 500 MG TAB PO SCH (08:05)
[2019-01-23] MEDS: ONDANSETRON 4 MG INJ IV PRN ×2 (08:05→14:24)
[2019-01-23] MEDS: MULTIVITAMINS/MINERALS TAB PO SCH (08:05)
[2019-01-23] MEDS: LACTOBACILLUS RHAMNOSUS CAP PO SCH (08:06)
[2019-01-23] MEDS: MUPIROCIN 2% 22 GM OINT TOP SCH ×2 (08:11→20:55)
[2019-01-23 08:49] VITALS: BP 100/54; PULSE 100; RESP 18
--- NOTE | 2019-01-23 10:44 | CONS ---
Assessment/Plan Assessment/Plan Hospital Course (Demo Recall) ID PROGRESS NOTE CURRENT ABX: DAY # =>MERREM + Vanco IV 01/23/1952701/23/19 05 24H INTERVAL SUMMARY * Awke, chronic pain issues persisting from sequelae of fasciotomy -- VSS, NAD, without dyspnea * WBC elevated today -- she was started on Vanco for 2+ Moderate Quantity CORYNEBACTER JEIKEIUM (GRP JK) = TRUE OPPORTUNISTIC PATHOGEN NEEDS TO BE TREATED MICRO/OTHER * 01/18/19 BCx (-) * (+)MRSA Nres * 01/18/19 WOUND CX: (+) WOUND CULTURE Final Organism 1 ENTEROBACTER CLOACAE QUANTITY SCANT GROWTH Organism 2 STREP AGALACTIAE - (GROUP B) QUANTITY SCANT GROWTH Organism 3 CORYNEBACTER JEIKEIUM (GRP JK) QUANTITY 2+ E CLOACAE M.I.C. RX --------- --- CEFOTAXIME S CIPROFLOXACIN <=0.25 S GENTAMICIN <=1 S LEVOFLOXACIN <=0.12 S TOBRAMYCIN <=1 S TRIMETHOPRIM/SULFAMETHOXAZOLE <=20 S WOUND CULTURE Final (continued) S AGA(GR B C JEIKEIUM Zone Size RX Zone Size RX --------- --- --------- --- * AMPICILLIN R * AMPICILLIN/SULBACTAM R * CEFAZOLIN R * CEFOTAXIME S R * CEFUROXIME R * CIPROFLOXACIN R * CLINDAMYCIN I R * ERYTHROMYCIN I R * PENICILLIN S R * VANCOMYCIN S S PHYSICAL EXAMINATION: GENERAL: VSS, NAD HEENT: AT, NC, anicteric, NECK: Supple, CHEST: Equal chest rise bilaterally, without dyspnea on observation HEART: Pulse RRR ABDOMEN: Soft : deferred EXTREMITIES: Warm, dry == RLEXT wound dsg C/intact scant serosanguineous drainage noted SKIN: No rash, no diaphoresis ID ASSESSMENT 38 yo F admit with: 1. Systemic inflammatory response syndrome 2. Right lower extremity infected wound 3. MRSA nares colonization 4. 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 Atrial septal defect (+)MRSA Nares ABX ALLERGIES: None to ABX INVASIVES: PIV CURRENT ABX: DAY # > MERREM + Vanco IV ID RECOMMENDATIONS/PLAN: 1. Continue Merrem or change to Ertapenem upon DC for once daily dosing 2. Start VANCO IV * NOTE: "JK" IS A TRUE OPPORTUNISTIC WOUND PATHOGEN with biofilm and should be treated Organism 3 CORYNEBACTER ANTHONYIUM (GRP JK) QUANTITY 2+ Consultation Date/Type/Reason Admit Date/Time Jan 18, 2019 at 00:20 Initial Consult Date Date/Time of Note DATE: 01/23/19 TIME: 10:41 Exam/Review of Systems Exam Vitals Vital Signs Date Temp Pulse Resp B/P (MAP) Pulse Ox O2 O2 Flow FiO2 Time Delivery Rate 01/23/19 98.9 100 18 100/54 94 Room Air 08:49 (69) Intake and Output 01/22/19 01/22/19 01/23/19 1515:00 23:00 07:00 IntakeIntake Total 1230 ml 520 ml 1178 ml OutputOutput Total 1300 ml 1950 ml 1250 ml BalanceBalance -70 ml -1430 ml -72 ml Results Result Diagram: 01/23/19 0528 01/23/19 0528 Results 24hrs Laboratory Tests Test 01/23/19 05:28 White Blood Count 14.0 H Red Blood Count 3.40 L Hemoglobin 8.3 L Hematocrit 27.0 L Mean Corpuscular Volume 79.4 L Mean Corpuscular Hemoglobin 24.4 L Mean Corpuscular Hemoglobin Concent 30.7 L Red Cell Distribution Width 17.6 H Platelet Count 585 H Mean Platelet Volume 9.8 Immature Granulocytes % 1.100 H Neutrophils % 63.4 Lymphocytes % 24.9 Monocytes % 6.2 Eosinophils % 3.5 Basophils % 0.9 Nucleated Red Blood Cells % 0.0 Immature Granulocytes # 0.160 H Neutrophils # 8.9 H Lymphocytes # 3.5 H Monocytes # 0.9 Eosinophils # 0.5 Basophils # 0.1 Nucleated Red Blood Cells # 0.0 Activated Partial Thromboplast Time 74.4 *H Sodium Level 138 Potassium Level 3.8 Chloride Level 105 Carbon Dioxide Level 26 Anion Gap 7 Blood Urea Nitrogen 4 L Creatinine 0.58 Est Glomerular Filtrat Rate mL/min > 60 Glucose Level 98 Calcium Level 8.8 Medications Medication Current Medications IV Flush (NS 3 ml) 3 ml PER PROTOCOL IV ; Start 01/18/19 at 01:30 Ondansetron HCl (Zofran Inj) 4 mg Q6H PRN IV NAUSEA/VOMITING Last administered on 01/23/19 08:05; Admin Dose 4 MG; Start 01/18/19 at 01:30 Acetaminophen (Tylenol Tab) 650 mg Q6H PRN PO .PAIN 1-3 OR TEMP Last adm inistered on 01/21/19 02:09; Admin Dose 650 MG; Start 01/18/19 at 01:30 Morphine Sulfate (morphine) 2 mg Q4H PRN IV .SEVERE PAIN 7-10 Last administered on 01/23/19 08:05; Admin Dose 2 MG; Start 01/18/19 at 01:30 Docusate Sodium (Colace) 100 mg Q12H PRN PO .CONSTIPATION Last administered on 01/22/19 05:03; Admin Dose 100 MG; Start 01/18/19 at 01:30 Magnesium Hydroxide (Milk Of Mag) 30 ml DAILY PRN PO .CONSTIPATION; Start 01/18/19 at 01:30 Lorazepam (Ativan) 0.5 mg Q6H PRN IV ANXIETY; Start 01/18/19 at 01:30 Albuterol/ Ipratropium (Duoneb) 3 ml Q4H RESP THERAPY PRN HHN SHORTNESS OF BREATH; Start 01/18/19 at 01:30 Hydralazine HCl (Apresoline) 10 mg Q6H PRN IV ELEVATED BLOOD PRESSURE; Start 01/18/19 at 01:30 Nitroglycerin (Nitroglycerin (Sl Tab) 0.4 Mg) 1 tab Q5M PRN SL ANGINA; Start 01/18/19 at 01:30 Ascorbic Acid (Vitamin C) 500 mg DAILY PO Last administered on 01/23/19 08:05; Admin Dose 500 MG; Start 01/18/19 at 09:00 Hydromorphone HCl (Dilaudid) 4 mg Q4H PRN PO MODERATE PAIN LEVEL 4-6 Last administered on 01/22/19at 23:15; Admin Dose 4 MG; Start 01/18/19 at 03:00 Multivitamins/ Minerals (Theragran-M) 1 tab DAILY PO Last administered on 01/23/19 08:05; Admin Dose 1 TAB; Start 01/18/19 at 09:00 Heparin Sodium (Porcine) (Heparin (1000 Units/ml)) 5,400 unit PER PROTOCOL PRN IV aPTT<47; Start 01/18/19 at 14:30 Heparin Sodium (Porcine) (Heparin (1000 Units/ml)) 2,700 unit PER PROTOCOL PRN IV aPTT<47-57; Start 01/18/19 at 14:30 Heparin Sodium (Porcine) 250 ml @ 12 mls/hr PER PROTOCOL IV Last administered on 01/22/19 14:15; Admin Dose 11.5 MLS/HR; Start 01/18/19 at 15:00 Mupirocin (Bactroban) 1 applic BID TOP Last administered on 01/23/19 08:11; Admin Dose 1 APPLIC; Start 01/19/19 at 09:00 Ferric Sodium Gluconate Complex 125 mg/Sodium Chloride 110 ml @ 110 mls/hr DAILY@1300 IVPB Last administered on 01/22/19 12:23; Admin Dose 110 MLS/HR; Start 01/20/19 at 13:00; Stop 01/24/19 at 13:59 Cholecalciferol (Vitamin D) 2,000 unit DAILY PO Last administered on 01/23/19 08:05; Admin Dose 2,000 UNIT; Start 01/20/19 at 09:00 Meropenem/Sodium Chloride 50 ml @ 100 mls/hr Q8 IVPB Last administered on 01/23/19 06:21; Admin Dose 100 MLS/HR; Start 01/20/19 at 14:00 Acetaminophen/ Hydrocodone Bitart ([place] (10/325)) 1 tab Q4H PRN PO MODERATE PAIN LEVEL 4-6 Last administered on 01/21/19 18:40; Admin Dose 1 TAB; Start 01/21/19 at 17:30 Lactobacillus Acidophilus/ Rhamnosus (Culturelle) 1 cap BID PO Last administered on 01/23/19 08:06; Admin Dose 1 CAP; Start 01/21/19 at 21:00 Pantoprazole (Protonix Tab) 40 mg BID@,18 PO Last administered on 6/9/19at 06:21; Admin Dose 40 MG; Start 01/22/19 at 09:00 Vancomycin HCl (Vanco Iv Per Pharmacy) VANCOMYCIN PER PHARMACY PER PROTOCOL XX ; Start 01/22/19 at 16:00 Vancomycin HCl 250 ml @ 125 mls/hr Q8H IVPB Last administered on 01/23/19at 10:0 5; Admin Dose 125 MLS/HR; Start 01/23/19 at 02:00 Miscellaneous Information (*Rx Drug Level Order Reminder*) VANCO TROUGH @ 1,700 ON... 1700 ONCE XX ; Start 01/23/19 at 17:00; Stop 01/23/19 at 17:01 MITCH COLLIER NP Jan 23, 2019 10:44
[2019-01-23] MEDS: SOD FERRIC GLUC COMPLX 125 MG in SOD CHLORIDE 0.9% 100 ML IVPB SCH (12:24)
[2019-01-23] MEDS: HEPARIN 25000 UNITS/250 ML 250 ML IV SCH (12:27)
[2019-01-23] MEDS: HYDROmorphONE 2 MG TAB PO PRN ×2 (14:30→20:00)
[2019-01-23 14:41] VITALS: BP 105/59; PULSE 101; RESP 17
--- NOTE | 2019-01-23 18:21 | PN ---
Date/Time of Note Date/Time of Note DATE: 01/23/19 TIME: 18:19 Assessment/Plan VTE Prophylaxis Risk score (from Ns)>0 risk: 4 SCD applied (from [facility] [place]): No SCD contraindicated: low risk/ambulating Pharmacological prophylaxis: LMWH, heparin Lines/Catheters IV Catheter Type (from [facility]): Saline Lock Urinary Cath still in place: No Assessment/Plan Hospital Course Hospitalist coverage A/P 1. Rt lwr ext infection, cont antibiotics. Debridement/ Wound VAC prn 2. Complicated rt lwr ext DVT w compartment syndrome and acute limb ischemia, sp fasciotomy and thrombectomy 3. MRSA nares 4. Anemia 5. Recent conversion disorder 6. Nausea; Gerd? h/o chr Gastritis; started ppi; hold nonessential medications. Check LFTs/lipase 7. Hypercoagulable disorder? For outpatient re-eval 8. ASD defect. Continue anticoagulation 9. Acute compartment syndrome 10. Acute right lower extremity limb ischemia S: 01/21 nausea without any known aggravating or relieving factors. Denies constipation. 01/22: No distress. On heparin drip 01/23: Moderate rle pain requiring narcotics. No fever diarrhea or abd pain. + nausea w/o any aggravating or relieving factors. O: Vss PE No pallor/ icterus Reg no m/r/g Clear Bs+ nt nd no RRG No edema; rt leg dressed; pulses present Result Diagram: 01/23/1928 01/23/1928 Results 24hrs Laboratory Tests Test 01/23/19 05:28 White Blood Count 14.0 H Red Blood Count 3.40 L Hemoglobin 8.3 L Hematocrit 27.0 L Mean Corpuscular Volume 79.4 L Mean Corpuscular Hemoglobin 24.4 L Mean Corpuscular Hemoglobin Concent 30.7 L Red Cell Distribution Width 17.6 H Platelet Count 585 H Mean Platelet Volume 9.8 Immature Granulocytes % 1.100 H Neutrophils % 63.4 Lymphocytes % 24.9 Monocytes % 6.2 Eosinophils % 3.5 Basophils % 0.9 Nucleated Red Blood Cells % 0.0 Immature Granulocytes # 0.160 H Neutrophils # 8.9 H Lymphocytes # 3.5 H Monocytes # 0.9 Eosinophils # 0.5 Basophils # 0.1 Nucleated Red Blood Cells # 0.0 Activated Partial Thromboplast Time 74.4 *H Sodium Level 138 Potassium Level 3.8 Chloride Level 105 Carbon Dioxide Level 26 Anion Gap 7 Blood Urea Nitrogen 4 L Creatinine 0.58 Est Glomerular Filtrat Rate mL/min > 60 Glucose Level 98 Calcium Level 8.8 Exam/Review of Systems Exam Vitals Vital Signs Date Temp Pulse Resp B/P (MAP) Pulse Ox O2 O2 Flow FiO2 Time Delivery Rate 01/23/19 98.9 101 17 105/59 97 Room Air 14:41 (74) Intake and Output 01/22/19 01/22/19 01/23/19 1515:00 23:00 07:00 IntakeIntake Total 1230 ml 520 ml 1178 ml OutputOutput Total 1300 ml 1950 ml 1250 ml BalanceBalance -70 ml -1430 ml -72 ml Results Results 24hrs Laboratory Tests Test 01/23/19 05:28 White Blood Count 14.0 H Red Blood Count 3.40 L Hemoglobin 8.3 L Hematocrit 27.0 L Mean Corpuscular Volume 79.4 L Mean Corpuscular Hemoglobin 24.4 L Mean Corpuscular Hemoglobin Concent 30.7 L Red Cell Distribution Width 17.6 H Platelet Count 585 H Mean Platelet Volume 9.8 Immature Granulocytes % 1.100 H Neutrophils % 63.4 Lymphocytes % 24.9 Monocytes % 6.2 Eosinophils % 3.5 Basophils % 0.9 Nucleated Red Blood Cells % 0.0 Immature Granulocytes # 0.160 H Neutrophils # 8.9 H Lymphocytes # 3.5 H Monocytes # 0.9 Eosinophils # 0.5 Basophils # 0.1 Nucleated Red Blood Cells # 0.0 Activated Partial Thromboplast Time 74.4 *H Sodium Level 138 Potassium Level 3.8 Chloride Level 105 Carbon Dioxide Level 26 Anion Gap 7 Blood Urea Nitrogen 4 L Creatinine 0.58 Est Glomerular Filtrat Rate mL/min > 60 Glucose Level 98 Calcium Level 8.8 Medications Medication Current Medications IV Flush (NS 3 ml) 3 ml PER PROTOCOL IV ; Start 01/18/19 at 01:30 Ondansetron HCl (Zofran Inj) 4 mg Q6H PRN IV NAUSEA/VOMITING Last administered on 01/23/19at 14:24; Admin Dose 4 MG; Start 01/18/19 at 01:30 Acetaminophen (Tylenol Tab) 650 mg Q6H PRN PO .PAIN 1-3 OR TEMP Last administered on 6/7/19at 02:09; Admin Dose 650 MG; Start 01/18/19 at 01:30 Morphine Sulfate (morphine) 2 mg Q4H PRN IV .SEVERE PAIN 7-10 Last administered on 01/23/19 12:24; Admin Dose 2 MG; Start 01/18/19 at 01:30 Docusate Sodium (Colace) 100 mg Q12H PRN PO .CONSTIPATION Last administered on 01/22/19 05:03; Admin Dose 100 MG; Start 01/18/19 at 01:30 Magnesium Hydroxide (Milk Of Mag) 30 ml DAILY PRN PO .CONSTIPATION; Start 01/18/19 at 01:30 Lorazepam (Ativan) 0.5 mg Q6H PRN IV ANXIETY; Start 01/18/19 at 01:30 Albuterol/ Ipratropium (Duoneb) 3 ml Q4H RESP THERAPY PRN HHN SHORTNESS OF BREATH; Start 01/18/19 at 01:30 Hydralazine HCl (Apresoline) 10 mg Q6H PRN IV ELEVATED BLOOD PRESSURE; Start 01/18/19 at 01:30 Nitroglycerin (Nitroglycerin (Sl Tab) 0.4 Mg) 1 tab Q5M PRN SL ANGINA; Start 01/18/19 at 01:30 Ascorbic Acid (Vitamin C) 500 mg DAILY PO Last administered on 01/23/19 08:05; Admin Dose 500 MG; Start 01/18/19 at 09:00 Hydromorphone HCl (Dilaudid) 4 mg Q4H PRN PO MODERATE PAIN LEVEL 4-6 Last administered on 01/23/19 14:30; Admin Dose 4 MG; Start 01/18/19 at 03:00 Multivitamins/ Minerals (Theragran-M) 1 tab DAILY PO Last administered on 01/23/19 08:05; Admin Dose 1 TAB; Start 01/18/19 at 09:00 Heparin Sodium (Porcine) (Heparin (1000 Units/ml)) 5,400 unit PER PROTOCOL PRN IV aPTT<47; Start 01/18/19 at 14:30 Heparin Sodium (Porcine) (Heparin (1000 Units/ml)) 2,700 unit PER PROTOCOL PRN IV aPTT<47-57; Start 01/18/19 at 14:30 Heparin Sodium (Porcine) 250 ml @ 12 mls/hr PER PROTOCOL IV Last administered on 01/23/19 12:27; Admin Dose 12 MLS/HR; Start 01/18/19 at 15:00 Mupirocin (Bactroban) 1 applic BID TOP Last administered on 01/23/19 08:11; Admin Dose 1 APPLIC; Start 01/19/19 at 09:00 Ferric Sodium Gluconate Complex 125 mg/Sodium Chloride 110 ml @ 110 mls/hr DAILY@1300 IVPB Last administered on 01/23/19 12:24; Admin Dose 110 MLS/HR; Start 01/20/19 at 13:00; Stop 01/24/19 at 13:59 Cholecalciferol (Vitamin D) 2,000 unit DAILY PO Last administered on 01/23/19 08:05; Admin Dose 2,000 UNIT; Start 01/20/19 at 09:00 Meropenem/Sodium Chloride 50 ml @ 100 mls/hr Q8 IVPB Last administered on 01/23/19 14:24; Admin Dose 100 MLS/HR; Start 01/20/19 at 14:00 Acetaminophen/ Hydrocodone Bitart ([place] (10/325)) 1 tab Q4H PRN PO MODERATE PAIN LEVEL 4-6 Last administered on 01/21/19 18:40; Admin Dose 1 TAB; Start 01/21/19 at 17:30 Lactobacillus Acidophilus/ Rhamnosus (Culturelle) 1 cap BID PO Last administered on 01/23/19 08:06; Admin Dose 1 CAP; Start 01/21/19 at 21:00 Pantoprazole (Protonix Tab) 40 mg BID@06,18 PO Last administered on 01/23/19 17:33; Admin Dose 40 MG; Start 01/22/19 at 09:00 Vancomycin HCl (Vanco Iv Per Pharmacy) VANCOMYCIN PER PHARMACY PER PROTOCOL XX ; Start 01/22/19 at 16:00 Vancomycin HCl 250 ml @ 125 mls/hr Q8H IVPB Last administered on 01/23/19 10:05; Admin Dose 125 MLS/HR; Start 01/23/19 at 02:00 NEETU BARON MD Jan 23, 2019 18:21
[2019-01-23 20:00] VITALS: BP 108/60; PULSE 84; RESP 18
[2019-01-24] MEDS: HYDROmorphONE 2 MG TAB PO PRN ×2 (01:07→14:13)
[2019-01-24 02:00] VITALS: BP 96/54; PULSE 96; RESP 17
[2019-01-24] MEDS: morphine 2 MG INJ IV PRN ×5 (02:06→21:31)
[2019-01-24] MEDS: VANCOMYCIN 750 MG (PMX) 250 ML IVPB SCH ×3 (04:18→20:31)
[2019-01-24] MEDS ORDERED: MICONAZOLE 2% 45 GM VAG CR VAG ONE (05:30)
[2019-01-24] MEDS: PANTOPRAZOLE (EC) 40 MG TAB PO SCH ×2 (06:31→17:35)
[2019-01-24] MEDS: MEROPENEM 1 GM/50ML(PMX) 50 ML IVPB SCH ×3 (06:31→22:47)
[2019-01-24] MEDS: ONDANSETRON 4 MG INJ IV PRN (06:38)
[2019-01-24 08:00] VITALS: BP 85/44; PULSE 86; RESP 17
[2019-01-24] MEDS: MUPIROCIN 2% 22 GM OINT TOP SCH ×2 (09:55→21:31)
[2019-01-24] MEDS: HEPARIN 25000 UNITS/250 ML 250 ML IV SCH (10:00)
--- NOTE | 2019-01-24 11:07 | PN ---
Date/Time of Note Date/Time of Note DATE: 01/24/19 TIME: 11:07 Assessment/Plan VTE Prophylaxis Risk score (from Ns)>0 risk: 4 SCD applied (from [facility] [place] No SCD contraindicated: other Pharmacological prophylaxis: heparin Lines/Catheters IV C[facility]ter Type (from [facility] Saline Lock Urinary Cath still in place: No Assessment/Plan Hospital Course SUBJECTIVE: OBJECTIVE: Vital signs-see below PHYSICAL EXAM: Constitutional: Adequately built,not in acute distress. HEENT: Head atraumatic and normocephalic. Eyes: Extraocular muscles intact. Anicteric sclerae. Pupils equal bilaterally, reactive to light. NECK: Supple without lymph node. CHEST: Clear and good breath sounds equally. No wheezing. No rhonchi. HEART: S1, S2. Regular rate and rhythm. ABDOMEN: Soft/non tender with no rebound tenderness. Bowel sounds were present. EXTREMITIES: Dressing on right lower extremity. Left lower extremity with normal pulses, no edema, no cyanosis. NEUROLOGIC: Alert and oriented x3. No focal deficit. No sensory deficit. PSYCHOSOCIAL: No signs of depression. INTEGUMENTARY: No open wounds. ASSESSMENT AND PLAN:38 yo female with h/o extensive DVT of RLE leading to compartment syndrome s/p fasciotomy/[id number] ago who was discharged with wound vac and now returns with likely infection of the wound... Right lower extremity infection -Wound culture grew Enterobacter/strep B/Jk -Being followed by vascular surgeon who operated patient 2 months ago who recommended medical management with dressing change, antibiotic at this time with no indication for debridement/surgical drainage. Recommended eventual plastic surgery follow-up once infection resolves for possible skin graft placement. History of complicated rt lwr ext DVT w compartment syndrome and acute limb ischemia -s/p fasciotomy and thrombectomy 2 months ago -Stop heparin infusion and will switch patient back to Xarelto which she takes at home. -CT with no recurrent clot formation. Anemia of inflammation -H&H stable. Continue monitoring. DVT prophylaxis. -Xarelto Disposition: According to vascular recommendation, no surgical need at this time. Recommended medical management with wound care and antibiotics. Defer ID for antibiotic choice and duration. Case management to arrange home health for wound care and antibiotics.. The patient was seen in collaboration with Result Diagram: 01/24/1916 01/24/19 0716 Results 24hrs Laboratory Tests Test 01/23/19 17:27 01/24/19 07:16 Vancomycin Level Trough 19.0 White Blood Count 12.4 H Red Blood Count 3.10 L Hemoglobin 7.8 L Hematocrit 25.3 L Mean Corpuscular Volume 81.6 L Mean Corpuscular Hemoglobin 25.2 L Mean Corpuscular Hemoglobin Concent 30.8 L Red Cell Distribution Width 18.8 H Platelet Count 543 H Mean Platelet Volume 9.8 Immature Granulocytes % 1.300 H Neutrophils % 63.6 Lymphocytes % 23.6 Monocytes % 7.2 Eosinophils % 3.3 Basophils % 1.0 Nucleated Red Blood Cells % 0.0 Immature Granulocytes # 0.160 H Neutrophils # 7.9 H Lymphocytes # 2.9 Monocytes # 0.9 Eosinophils # 0.4 Basophils # 0.1 Nucleated Red Blood Cells # 0.0 Activated Partial Thromboplast Time 113.5 *H Sodium Level 139 Potassium Level 3.7 Chloride Level 107 Carbon Dioxide Level 26 Anion Gap 6 Blood Urea Nitrogen 4 L Creatinine 0.59 Est Glomerular Filtrat Rate mL/min > 60 Glucose Level 89 Lactic Acid Level 1.2 Calcium Level 8.8 Total Bilirubin 0.2 Direct Bilirubin 0.00 Indirect Bilirubin 0.2 Aspartate Amino Transf (AST/SGOT) 93 H Alanine Aminotransferase (ALT/SGPT) 32 Alkaline Phosphatase 127 H Total Protein 6.9 Albumin 2.7 L Globulin 4.20 H Albumin/Globulin Ratio 0.64 Lipase 197 Exam/Review of Systems Exam Vitals Vital Signs Date Temp Pulse Resp B/P (MAP) Pulse Ox O2 O2 Flow FiO2 Time Delivery Rate 01/24/19 98.7 86 17 85/44 (58) 96 Room Air 08:00 Intake and Output 01/23/19 01/23/19 01/24/19 1515:00 23:00 07:00 IntakeIntake Total 1072 ml 551.75 ml 400 ml OutputOutput Total 1100 ml 500 ml BalanceBalance -28 ml 51.75 ml 400 ml Results Results 24hrs Laboratory Tests Test 01/23/19 17:27 01/24/19 07:16 Vancomycin Level Trough 19.0 White Blood Count 12.4 H Red Blood Count 3.10 L Hemoglobin 7.8 L Hematocrit 25.3 L Mean Corpuscular Volume 81.6 L Mean Corpuscular Hemoglobin 25.2 L Mean Corpuscular Hemoglobin Concent 30.8 L Red Cell Distribution Width 18.8 H Platelet Count 543 H Mean Platelet Volume 9.8 Immature Granulocytes % 1.300 H Neutrophils % 63.6 Lymphocytes % 23.6 Monocytes % 7.2 Eosinophils % 3.3 Basophils % 1.0 Nucleated Red Blood Cells % 0.0 Immature Granulocytes # 0.160 H Neutrophils # 7.9 H Lymphocytes # 2.9 Monocytes # 0.9 Eosinophils # 0.4 Basophils # 0.1 Nucleated Red Blood Cells # 0.0 Activated Partial Thromboplast Time 113.5 *H Sodium Level 139 Potassium Level 3.7 Chloride Level 107 Carbon Dioxide Level 26 Anion Gap 6 Blood Urea Nitrogen 4 L Creatinine 0.59 Est Glomerular Filtrat Rate mL/min > 60 Glucose Level 89 Lactic Acid Level 1.2 Calcium Level 8.8 Total Bilirubin 0.2 Direct Bilirubin 0.00 Indirect Bilirubin 0.2 Aspartate Amino Transf (AST/SGOT) 93 H Alanine Aminotransferase (ALT/SGPT) 32 Alkaline Phosphatase 127 H Total Protein 6.9 Albumin 2.7 L Globulin 4.20 H Albumin/Globulin Ratio 0.64 Lipase 197 Medications Medication Current Medications IV Flush (NS 3 ml) 3 ml PER PROTOCOL IV ; Start 01/18/19 at 01:30 Ondansetron HCl (Zofran Inj) 4 mg Q6H PRN IV NAUSEA/VOMITING Last administered on 01/24/19at 06:38; Admin Dose 4 MG; Start 01/18/19 at 01:30 Acetaminophen (Tylenol Tab) 650 mg Q6H PRN PO .PAIN 1-3 OR TEMP Last administered on 01/21/19at 02:09; Admin Dose 650 MG; Start 01/18/19 at 01:30 Morphine Sulfate (morphine) 2 mg Q4H PRN IV .SEVERE PAIN 7-10 Last administered on 01/24/19at 10:34; Admin Dose 2 MG; Start 01/18/19 at 01:30 Docusate Sodium (Colace) 100 mg Q12H PRN PO .CONSTIPATION Last administered on 01/22/19at 05:03; Admin Dose 100 MG; Start 01/18/19 at 01:30 Magnesium Hydroxide (Milk Of Mag) 30 ml DAILY PRN PO .CONSTIPATION; Start 01/18/19 at 01:30 Lorazepam (Ativan) 0.5 mg Q6H PRN IV ANXIETY; Start 01/18/19 at 01:30 Albuterol/ Ipratropium (Duoneb) 3 ml Q4H RESP THERAPY PRN HHN SHORTNESS OF BREATH; Start 01/18/19 at 01:30 Hydralazine HCl (Apresoline) 10 mg Q6H PRN IV ELEVATED BLOOD PRESSURE; Start 01/18/19 at 01:30 Nitroglycerin (Nitroglycerin (Sl Tab) 0.4 Mg) 1 tab Q5M PRN SL ANGINA; Start 01/18/19 at 01:30 Hydromorphone HCl (Dilaudid) 4 mg Q4H PRN PO MODERATE PAIN LEVEL 4-6 Last administered on 01/24/19at 01:07; Admin Dose 4 MG; Start 01/18/19 at 03:00 Heparin Sodium (Porcine) (Heparin (1000 Units/ml)) 5,400 unit PER PROTOCOL PRN IV aPTT<47; Start 01/18/19 at 14:30 Heparin Sodium (Porcine) (Heparin (1000 Units/ml)) 2,700 unit PER PROTOCOL PRN IV aPTT<47-57; Start 01/18/19 at 14:30 Heparin Sodium (Porcine) 250 ml @ 12 mls/hr PER PROTOCOL IV Last administered on 01/24/19at 10:00; Admin Dose 10 MLS/HR; Start 01/18/19 at 15:00 Mupirocin (Bactroban) 1 applic BID TOP Last administered on 01/24/19at 09:55; Admin Dose 1 APPLIC; Start 01/19/19 at 09:00 Ferric Sodium Gluconate Complex 125 mg/Sodium Chloride 110 ml @ 110 mls/hr DAILY@1300 IVPB Last administered on 01/23/19at 12:24; Admin Dose 110 MLS/HR; Start 01/20/19 at 13:00; Stop 01/24/19 at 13:59 Meropenem/Sodium Chloride 50 ml @ 100 mls/hr Q8 IVPB Last administered on 01/24/19at 06:31; Admin Dose 100 MLS/HR; Start 01/20/19 at 14:00 Acetaminophen/ Hydrocodone Bitart ([place] ()) 1 tab Q4H PRN PO MODERATE PAIN LEVEL 4-6 Last administered on 01/21/19at 18:40; Admin Dose 1 TAB; Start 01/21/19 at 17:30 Pantoprazole (Protonix Tab) 40 mg BID@06,18 PO Last administered on 01/24/19at 06:31; Admin Dose 40 MG; Start 01/22/19 at 09:00 Vancomycin HCl (Vanco Iv Per Pharmacy) VANCOMYCIN PER PHARMACY PER PROTOCOL XX ; Start 01/22/19 at 16:00 Ascorbic Acid (Vitamin C) 500 mg DAILY PO ; Start 01/26/19 at 09:00 Cholecalciferol (Vitamin D) 2,000 unit DAILY PO ; Start 01/26/19 at 09:00 Lactobacillus Acidophilus/ Rhamnosus (Culturelle) 1 cap BID PO ; Start 01/26/19 at 21:00 Multivitamins/ Minerals (Theragran-M) 1 tab DAILY PO ; Start 01/26/19 at 09:00 Vancomycin/Sodium Chloride 250 ml @ 125 mls/hr Q8H IVPB Last administered on 01/24/19at 04:18; Admin Dose 125 MLS/HR; Start 01/24/19 at 04:00 ROLO JON NP Jan 24, 2019 11:07
--- NOTE | 2019-01-24 14:02 | CONS ---
Assessment/Plan Assessment/Plan Hospital Course (Demo Recall) No acute changes overnight, alert, feels ok, no fevers Microbiology: Blood cultures remain negative MRSA swab came back positive Wound culture growing Enterobacter and Corynebact grp JK Antimicrobials: Merrem Vanco Physical examination: Well-developed middle-aged woman who is awake in no distress. Head atraumatic normocephalic neck is supple chest rise symmetrical breath sounds diminished bases heart S1-S2 abdomen soft bowel sounds present. Extremities: With right lower extremity dressing intact Assessment: 1. Systemic inflammatory response syndrome 2. Right lower extremity infected wound 3. MRSA nares colonization 4. 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 Atrial septal defect Plan: Remains stable, continue antibiotics topical Bactroban to nares, f/u vascular rec-s Consultation Date/Type/Reason Admit Date/Time Jan 18, 2019 at 00:20 Initial Consult Date Type of Consult id Date/Time of Note DATE: 01/24/19 TIME: 14:01 Exam/Review of Systems Exam Vitals Vital Signs Date Temp Pulse Resp B/P (MAP) Pulse Ox O2 O2 Flow FiO2 Time Delivery Rate 01/24/19 98.7 86 17 85/44 (58) 96 Room Air 08:00 Intake and Output 01/23/19 01/23/19 01/24/19 1515:00 23:00 07:00 IntakeIntake Total 1072 ml 551.75 ml 400 ml OutputOutput Total 1100 ml 500 ml BalanceBalance -28 ml 51.75 ml 400 ml Results Result Diagram: 01/24/19 0716 01/24/19 0716 Results 24hrs Laboratory Tests Test 01/23/19 17:27 01/24/19 07:16 Vancomycin Level Trough 19.0 White Blood Count 12.4 H Red Blood Count 3.10 L Hemoglobin 7.8 L Hematocrit 25.3 L Mean Corpuscular Volume 81.6 L Mean Corpuscular Hemoglobin 25.2 L Mean Corpuscular Hemoglobin Concent 30.8 L Red Cell Distribution Width 18.8 H Platelet Count 543 H Mean Platelet Volume 9.8 Immature Granulocytes % 1.300 H Neutrophils % 63.6 Lymphocytes % 23.6 Monocytes % 7.2 Eosinophils % 3.3 Basophils % 1.0 Nucleated Red Blood Cells % 0.0 Immature Granulocytes # 0.160 H Neutrophils # 7.9 H Lymphocytes # 2.9 Monocytes # 0.9 Eosinophils # 0.4 Basophils # 0.1 Nucleated Red Blood Cells # 0.0 Activated Partial Thromboplast Time 113.5 *H Sodium Level 139 Potassium Level 3.7 Chloride Level 107 Carbon Dioxide Level 26 Anion Gap 6 Blood Urea Nitrogen 4 L Creatinine 0.59 Est Glomerular Filtrat Rate mL/min > 60 Glucose Level 89 Lactic Acid Level 1.2 Calcium Level 8.8 Total Bilirubin 0.2 Direct Bilirubin 0.00 Indirect Bilirubin 0.2 Aspartate Amino Transf (AST/SGOT) 93 H Alanine Aminotransferase (ALT/SGPT) 32 Alkaline Phosphatase 127 H Total Protein 6.9 Albumin 2.7 L Globulin 4.20 H Albumin/Globulin Ratio 0.64 Lipase 197 Medications Medication Current Medications IV Flush (NS 3 ml) 3 ml PER PROTOCOL IV ; Start 01/18/19 at 01:30 Ondansetron HCl (Zofran Inj) 4 mg Q6H PRN IV NAUSEA/VOMITING Last administered on 01/24/19at 06:38; Admin Dose 4 MG; Start 01/18/19 at 01:30 Acetaminophen (Tylenol Tab) 650 mg Q6H PRN PO .PAIN 1-3 OR TEMP Last administered on 01/21/19 02:09; Admin Dose 650 MG; Start 01/18/19 at 01:30 Morphine Sulfate (morphine) 2 mg Q4H PRN IV .SEVERE PAIN 7-10 Last administered on 01/24/19at 10:34; Admin Dose 2 MG; Start 01/18/19 at 01:30 Docusate Sodium (Colace) 100 mg Q12H PRN PO .CONSTIPATION Last administered on 01/22/19 05:03; Admin Dose 100 MG; Start 01/18/19 at 01:30 Magnesium Hydroxide (Milk Of Mag) 30 ml DAILY PRN PO .CONSTIPATION; Start 01/18/19 at 01:30 Lorazepam (Ativan) 0.5 mg Q6H PRN IV ANXIETY; Start 01/18/19 at 01:30 Albuterol/ Ipratropium (Duoneb) 3 ml Q4H RESP THERAPY PRN HHN SHORTNESS OF BREATH; Start 01/18/19 at 01:30 Hydralazine HCl (Apresoline) 10 mg Q6H PRN IV ELEVATED BLOOD PRESSURE; Start 01/18/19 at 01:30 Nitroglycerin (Nitroglycerin (Sl Tab) 0.4 Mg) 1 tab Q5M PRN SL ANGINA; Start 01/18/19 at 01:30 Hydromorphone HCl (Dilaudid) 4 mg Q4H PRN PO MODERATE PAIN LEVEL 4-6 Last administered on 01/24/19at 01:07; Admin Dose 4 MG; Start 01/18/19 at 03:00 Heparin Sodium (Porcine) (Heparin (1000 Units/ml)) 5,400 unit PER PROTOCOL PRN IV aPTT<47; Start 01/18/19 at 14:30 Heparin Sodium (Porcine) (Heparin (1000 Units/ml)) 2,700 unit PER PROTOCOL PRN IV aPTT<47-57; Start 01/18/19 at 14:30 Heparin Sodium (Porcine) 250 ml @ 12 mls/hr PER PROTOCOL IV Last administered on 01/24/19at 10:00; Admin Dose 10 MLS/HR; Start 01/18/19 at 15:00 Mupirocin (Bactroban) 1 applic BID TOP Last administered on 01/24/19at 09:55; Admin Dose 1 APPLIC; Start 01/19/19 at 09:00 Meropenem/Sodium Chloride 50 ml @ 100 mls/hr Q8 IVPB Last administered on 01/24/19at 06:31; Admin Dose 100 MLS/HR; Start 01/20/19 at 14:00 Acetaminophen/ Hydrocodone Bitart ([place] (10/325)) 1 tab Q4H PRN PO MODERATE PAIN LEVEL 4-6 Last administered on 01/21/19at 18:40; Admin Dose 1 TAB; Start 01/21/19 at 17:30 Pantoprazole (Protonix Tab) 40 mg BID@06,18 PO Last administered on 01/24/19at 06:31; Admin Dose 40 MG; Start 01/22/19 at 09:00 Vancomycin HCl (Vanco Iv Per Pharmacy) VANCOMYCIN PER PHARMACY PER PROTOCOL XX ; Start 01/22/19 at 16:00 Ascorbic Acid (Vitamin C) 500 mg DAILY PO ; Start 01/26/19 at 09:00 Cholecalciferol (Vitamin D) 2,000 unit DAILY PO ; Start 01/26/19 at 09:00 Lactobacillus Acidophilus/ Rhamnosus (Culturelle) 1 cap BID PO ; Start 01/26/19 at 21:00 Multivitamins/ Minerals (Theragran-M) 1 tab DAILY PO ; Start 01/26/19 at 09:00 Vancomycin/Sodium Chloride 250 ml @ 125 mls/hr Q8H IVPB Last administered on 01/24/19at 12:27; Admin Dose 125 MLS/HR; Start 01/24/19 at 04:00 TIFFANIE DEVINE NP Jan 24, 2019 14:02
[2019-01-24] MEDS: SOD FERRIC GLUC COMPLX 125 MG in SOD CHLORIDE 0.9% 100 ML IVPB SCH (14:44)
[2019-01-24] MEDS ORDERED: RIVAROXABAN 20 MG TABLET PO SCH (18:05)
[2019-01-24 20:40] VITALS: BP 95/47; PULSE 72; RESP 18
[2019-01-25 02:00] VITALS: BP 99/54; PULSE 83; RESP 17
[2019-01-25] MEDS: morphine 2 MG INJ IV PRN ×4 (05:16→20:53)
[2019-01-25] MEDS: MEROPENEM 1 GM/50ML(PMX) 50 ML IVPB SCH ×3 (05:16→22:24)
[2019-01-25] MEDS: PANTOPRAZOLE (EC) 40 MG TAB PO SCH ×2 (05:25→17:37)
[2019-01-25] MEDS: ONDANSETRON 4 MG INJ IV PRN ×2 (05:27→13:32)
[2019-01-25 07:15] VITALS: BP 93/50; PULSE 86; RESP 16
[2019-01-25] MEDS: VANCOMYCIN 500 MG (PMX) 100 ML IVPB SCH ×2 (08:08→15:38)
[2019-01-25] MEDS: MUPIROCIN 2% 22 GM OINT TOP SCH ×2 (08:29→20:55)
--- NOTE | 2019-01-25 10:53 | PN ---
Date/Time of Note Date/Time of Note DATE: 01/25/19 TIME: 10:50 Assessment/Plan VTE Prophylaxis Risk score (from Ns)>0 risk: 3 SCD applied (from [facility] [place]): No SCD contraindicated: other Pharmacological prophylaxis: NA/contraindicated Pharm contraindication: bleeding Lines/Catheters IV C[facility]ter Type (from [facility] Saline Lock Urinary Cath still in place: No Assessment/Plan Hospital Course SUBJECTIVE: Patient with nosebleed from right nostrils OBJECTIVE: Vital signs-see below PHYSICAL EXAM: Constitutional: Adequately built,not in acute distress. HEENT: Head atraumatic and normocephalic. Eyes: Extraocular muscles intact. Anicteric sclerae. Pupils equal bilaterally, reactive to light. R Nose bleed+ NECK: Supple without lymph node. CHEST: Clear and good breath sounds equally. No wheezing. No rhonchi. HEART: S1, S2. Regular rate and rhythm. ABDOMEN: Soft/non tender with no rebound tenderness. Bowel sounds were present. EXTREMITIES: Dressing on right lower extremity. Left lower extremity with normal pulses, no edema, no cyanosis. NEUROLOGIC: Alert and oriented x3. No focal deficit. No sensory deficit. PSYCHOSOCIAL: No signs of depression. INTEGUMENTARY: No open wounds. ASSESSMENT AND PLAN:38 yo female with h/o extensive DVT of RLE leading to compartment syndrome s/p fasciotomy/[id number] ago who was discharged with wound vac and now returns with likely infection of the wound... Right lower extremity infection -Wound culture grew Enterobacter/strep B/Jk -Being followed by vascular surgeon who operated patient 2 months ago who recommended medical management with dressing change, antibiotic at this time with no indication for debridement/surgical drainage. Recommended eventual plastic surgery follow-up once infection resolves for possible skin graft placement. -ID recommended 10 more days on meropenem/vancomycin History of complicated rt lwr ext DVT w compartment syndrome and acute limb ischemia -s/p fasciotomy and thrombectomy 2 months ago -Hold off to anticoagulation TODAY as patient with epistaxis-> If patient continues to bleed, will need to consider hematology involvement for ATC alternatives -CT with no recurrent clot formation. Epistaxis -Obtain stat CBC. Apply nasal pack/ice packs. -Hold Xarelto -If bleeding does not stop, will consider ENT evaluation. Anemia of inflammation -H&H stable. Continue monitoring. DVT prophylaxis. -Hold Xarelto for now. Disposition: Continue applying nasal packing/ice packs to control epistaxis. After discussion with vascular, we will hold off anticoagulation today hoping this epistaxis will stop by tomorrow. If patient continues to bleed, will need to consider hematology involvement and possible ENT consultation. In terms of right foot infection, according to vascular recommendation, no surgical need at this time. Recommended medical management with wound care and antibiotics. ID recommended 10 more days on vancomycin and meropenem.. Case management to arrange home health for wound care and antibiotics.. The patient was seen in collaboration with Result Diagram: 01/25/19 0321 01/25/19 0321 Results 24hrs Laboratory Tests Test 01/25/19 03:21 White Blood Count 12.3 H Red Blood Count 3.36 L Hemoglobin 8.4 L Hematocrit 27.3 L Mean Corpuscular Volume 81.3 L Mean Corpuscular Hemoglobin 25.0 L Mean Corpuscular Hemoglobin Concent 30.8 L Red Cell Distribution Width 19.4 H Platelet Count 575 H Mean Platelet Volume 9.8 Immature Granulocytes % 0.800 H Neutrophils % 70.6 Lymphocytes % 17.7 Monocytes % 7.2 Eosinophils % 2.8 Basophils % 0.9 Nucleated Red Blood Cells % 0.0 Immature Granulocytes # 0.100 H Neutrophils # 8.7 H Lymphocytes # 2.2 Monocytes # 0.9 Eosinophils # 0.3 Basophils # 0.1 Nucleated Red Blood Cells # 0.0 Sodium Level 140 Potassium Level 3.9 Chloride Level 106 Carbon Dioxide Level 29 Anion Gap 5 Blood Urea Nitrogen 5 L Creatinine 0.71 Est Glomerular Filtrat Rate mL/min > 60 Glucose Level 117 Calcium Level 9.1 Vancomycin Level Trough 17.8 Exam/Review of Systems Exam Vitals Vital Signs Date Temp Pulse Resp B/P (MAP) Pulse Ox O2 O2 Flow FiO2 Time Delivery Rate 01/25/19 98.3 86 16 93/50 (64) 97 Room Air 07:15 Intake and Output 01/24/19 01/24/19 01/25/19 1515:00 23:00 07:00 IntakeIntake Total 584.75 ml 1100 ml 100 ml OutputOutput Total 800 ml BalanceBalance 584.75 ml 300 ml 100 ml Results Results 24hrs Laboratory Tests Test 01/25/19 03:21 White Blood Count 12.3 H Red Blood Count 3.36 L Hemoglobin 8.4 L Hematocrit 27.3 L Mean Corpuscular Volume 81.3 L Mean Corpuscular Hemoglobin 25.0 L Mean Corpuscular Hemoglobin Concent 30.8 L Red Cell Distribution Width 19.4 H Platelet Count 575 H Mean Platelet Volume 9.8 Immature Granulocytes % 0.800 H Neutrophils % 70.6 Lymphocytes % 17.7 Monocytes % 7.2 Eosinophils % 2.8 Basophils % 0.9 Nucleated Red Blood Cells % 0.0 Immature Granulocytes # 0.100 H Neutrophils # 8.7 H Lymphocytes # 2.2 Monocytes # 0.9 Eosinophils # 0.3 Basophils # 0.1 Nucleated Red Blood Cells # 0.0 Sodium Level 140 Potassium Level 3.9 Chloride Level 106 Carbon Dioxide Level 29 Anion Gap 5 Blood Urea Nitrogen 5 L Creatinine 0.71 Est Glomerular Filtrat Rate mL/min > 60 Glucose Level 117 Calcium Level 9.1 Vancomycin Level Trough 17.8 Medications Medication Current Medications IV Flush (NS 3 ml) 3 ml PER PROTOCOL IV ; Start 01/18/19 at 01:30 Ondansetron HCl (Zofran Inj) 4 mg Q6H PRN IV NAUSEA/VOMITING Last administered on 01/25/19 05:27; Admin Dose 4 MG; Start 01/18/19 at 01:30 Acetaminophen (Tylenol Tab) 650 mg Q6H PRN PO .PAIN 1-3 OR TEMP Last administered on 01/21/19 02:09; Admin Dose 650 MG; Start 01/18/19 at 01:30 Morphine Sulfate (morphine) 2 mg Q4H PRN IV .SEVERE PAIN 7-10 Last administered on 01/25/19 09:57; Admin Dose 2 MG; Start 01/18/19 at 01:30 Docusate Sodium (Colace) 100 mg Q12H PRN PO .CONSTIPATION Last administered on 01/22/19 05:03; Admin Dose 100 MG; Start 01/18/19 at 01:30 Magnesium Hydroxide (Milk Of Mag) 30 ml DAILY PRN PO .CONSTIPATION; Start 01/18/19 at 01:30 Lorazepam (Ativan) 0.5 mg Q6H PRN IV ANXIETY; Start 01/18/19 at 01:30 Albuterol/ Ipratropium (Duoneb) 3 ml Q4H RESP THERAPY PRN HHN SHORTNESS OF BREATH; Start 01/18/19 at 01:30 Hydralazine HCl (Apresoline) 10 mg Q6H PRN IV ELEVATED BLOOD PRESSURE; Start 01/18/19 at 01:30 Nitroglycerin (Nitroglycerin (Sl Tab) 0.4 Mg) 1 tab Q5M PRN SL ANGINA; Start 01/18/19 at 01:30 Hydromorphone HCl (Dilaudid) 4 mg Q4H PRN PO MODERATE PAIN LEVEL 4-6 Last administered on 01/24/19at 14:13; Admin Dose 4 MG; Start 01/18/19 at 03:00 Mupirocin (Bactroban) 1 applic BID TOP Last administered on 01/25/19at 08:29; Admin Dose 1 APPLIC; Start 01/19/19 at 09:00 Meropenem/Sodium Chloride 50 ml @ 100 mls/hr Q8 IVPB Last administered on 01/25/19at 05:16; Admin Dose 100 MLS/HR; Start 01/20/19 at 14:00 Acetaminophen/ Hydrocodone Bitart ([place] (10/325)) 1 tab Q4H PRN PO MODERATE PAIN LEVEL 4-6 Last administered on 01/21/19at 18:40; Admin Dose 1 TAB; Start 01/21/19 at 17:30 Pantoprazole (Protonix Tab) 40 mg BID@06,18 PO Last administered on 01/25/19at 05:25; Admin Dose 40 MG; Start 01/22/19 at 09:00 Vancomycin HCl (Vanco Iv Per Pharmacy) VANCOMYCIN PER PHARMACY PER PROTOCOL XX ; Start 01/22/19 at 16:00 Ascorbic Acid (Vitamin C) 500 mg DAILY PO ; Start 01/26/19 at 09:00 Cholecalciferol (Vitamin D) 2,000 unit DAILY PO ; Start 01/26/19 at 09:00 Lactobacillus Acidophilus/ Rhamnosus (Culturelle) 1 cap BID PO ; Start 01/26/19 at 21:00 Multivitamins/ Minerals (Theragran-M) 1 tab DAILY PO ; Start 01/26/19 at 09:00 Rivaroxaban (Xarelto) 20 mg WITH DINNER PO Last administered on 01/24/19at 17: 35; Admin Dose 20 MG; Start 01/24/19 at 18:05 Vancomycin HCl 100 ml @ 100 mls/hr Q8H IVPB Last administered on 01/25/19at 08:08; Admin Dose 100 MLS/HR; Start 01/25/19 at 08:00 Miscellaneous Information (*Rx Drug Level Order Reminder*) VANCO TR AT 0700 0700 ONCE XX ; Start 01/26/19 at 07:00; Stop 01/26/19 at 07:01 ROLO JON V. [employer] Jan 25, 2019 10:53
[2019-01-25 11:05] VITALS: BP 106/57; PULSE 95; RESP 16
--- NOTE | 2019-01-25 11:33 | CONS ---
Assessment/Plan Assessment/Plan Hospital Course (Demo Recall) No acute changes overnight Microbiology: Blood cultures remain negative MRSA swab came back positive Wound culture growing Enterobacter and Corynebact grp JK Antimicrobials: Merrem Vanco Physical examination: Well-developed middle-aged woman who is awake in no distress. Head atraumatic normocephalic neck is supple chest rise symmetrical breath sounds diminished bases heart S1-S2 abdomen soft bowel sounds present. Extremities: With right lower extremity dressing intact Assessment: 1. Systemic inflammatory response syndrome 2. Right lower extremity infected wound 3. MRSA nares colonization 4. History of right lower extremity DVT with ischemic compartment syndrome st atus post fasciotomy in October 2018 5. Atrial septal defect Plan: Remains stable, continue antibiotics for 9 more days, f/u vascular rec-s Consultation Date/Type/Reason Admit Date/Time Jan 18, 2019 at 00:20 Initial Consult Date Type of Consult id Date/Time of Note DATE: 01/25/19 TIME: 11:32 Exam/Review of Systems Exam Vitals Vital Signs Date Temp Pulse Resp B/P (MAP) Pulse Ox O2 O2 Flow FiO2 Time Delivery Rate 01/25/19 95 16 106/57 96 Room Air 11:05 (73) 01/25/19 98.3 07:15 Intake and Output 01/24/19 01/24/19 01/25/19 1515:00 23:00 07:00 IntakeIntake Total 584.75 ml 1100 ml 100 ml OutputOutput Total 800 ml BalanceBalance 584.75 ml 300 ml 100 ml Results Result Diagram: 01/25/19 0321 01/25/19 0321 Results 24hrs Laboratory Tests Test 01/25/19 03:21 01/25/19 11:01 White Blood Count 12.3 H Pending Red Blood Count 3.36 L Pending Hemoglobin 8.4 L Pending Hematocrit 27.3 L Pending Mean Corpuscular Volume 81.3 L Pending Mean Corpuscular Hemoglobin 25.0 L Pending Mean Corpuscular Hemoglobin Concent 30.8 L Pending Red Cell Distribution Width 19.4 H Pending Platelet Count 575 H Pending Mean Platelet Volume 9.8 Pending Immature Granulocytes % 0.800 H Neutrophils % 70.6 Lymphocytes % 17.7 Monocytes % 7.2 Eosinophils % 2.8 Basophils % 0.9 Nucleated Red Blood Cells % 0.0 Immature Granulocytes # 0.100 H Neutrophils # 8.7 H Lymphocytes # 2.2 Monocytes # 0.9 Eosinophils # 0.3 Basophils # 0.1 Nucleated Red Blood Cells # 0.0 Sodium Level 140 Potassium Level 3.9 Chloride Level 106 Carbon Dioxide Level 29 Anion Gap 5 Blood Urea Nitrogen 5 L Creatinine 0.71 Est Glomerular Filtrat Rate mL/min > 60 Glucose Level 117 Calcium Level 9.1 Vancomycin Level Trough 17.8 Medications Medication Current Medications IV Flush (NS 3 ml) 3 ml PER PROTOCOL IV ; Start 01/18/19 at 01:30 Ondansetron HCl (Zofran Inj) 4 mg Q6H PRN IV NAUSEA/VOMITING Last administered on 01/25/19at 05:27; Admin Dose 4 MG; Start 01/18/19 at 01:30 Acetaminophen (Tylenol Tab) 650 mg Q6H PRN PO .PAIN 1-3 OR TEMP Last administered on 01/21/19at 02:09; Admin Dose 650 MG; Start 01/18/19 at 01:30 Morphine Sulfate (morphine) 2 mg Q4H PRN IV .SEVERE PAIN 7-10 Last administered on 01/25/19at 09:57; Admin Dose 2 MG; Start 01/18/19 at 01:30 Docusate Sodium (Colace) 100 mg Q12H PRN PO .CONSTIPATION Last administered on 01/22/19at 05:03; Admin Dose 100 MG; Start 01/18/19 at 01:30 Magnesium Hydroxide (Milk Of Mag) 30 ml DAILY PRN PO .CONSTIPATION; Start 01/18/19 at 01:30 Lorazepam (Ativan) 0.5 mg Q6H PRN IV ANXIETY; Start 01/18/19 at 01:30 Albuterol/ Ipratropium (Duoneb) 3 ml Q4H RESP THERAPY PRN HHN SHORTNESS OF BREATH; Start 01/18/19 at 01:30 Hydralazine HCl (Apresoline) 10 mg Q6H PRN IV ELEVATED BLOOD PRESSURE; Start 01/18/19 at 01:30 Nitroglycerin (Nitroglycerin (Sl Tab) 0.4 Mg) 1 tab Q5M PRN SL ANGINA; Start 01/18/19 at 01:30 Hydromorphone HCl (Dilaudid) 4 mg Q4H PRN PO MODERATE PAIN LEVEL 4-6 Last administered on 01/24/19at 14:13; Admin Dose 4 MG; Start 01/18/19 at 03:00 Mupirocin (Bactroban) 1 applic BID TOP Last administered on 01/25/19at 08:29; Admin Dose 1 APPLIC; Start 01/19/19 at 09:00 Meropenem/Sodium Chloride 50 ml @ 100 mls/hr Q8 IVPB Last administered on 01/25/19at 05:16; Admin Dose 100 MLS/HR; Start 01/20/19 at 14:00 Acetaminophen/ Hydrocodone Bitart ([place] (10/325)) 1 tab Q4H PRN PO MODERATE PAIN LEVEL 4-6 Last administered on 01/21/19at 18:40; Admin Dose 1 TAB; Start 01/21/19 at 17:30 Pantoprazole (Protonix Tab) 40 mg BID@06,18 PO Last administered on 01/25/19at 05:25; Admin Dose 40 MG; Start 01/22/19 at 09:00 Vancomycin HCl (Vanco Iv Per Pharmacy) VANCOMYCIN PER PHARMACY PER PROTOCOL XX ; Start 01/22/19 at 16:00 Ascorbic Acid (Vitamin C) 500 mg DAILY PO ; Start 01/26/19 at 09:00 Cholecalciferol (Vitamin D) 2,000 unit DAILY PO ; Start 01/26/19 at 09:00 Lactobacillus Acidophilus/ Rhamnosus (Culturelle) 1 cap BID PO ; Start 01/26/19 at 21:00 Multivitamins/ Minerals (Theragran-M) 1 tab DAILY PO ; Start 01/26/19 at 09:00 Rivaroxaban (Xarelto) 20 mg WITH DINNER PO Last administered on 01/24/19at 17:35; Admin Dose 20 MG; Start 01/24/19 at 18:05; Status Hold Vancomycin HCl 100 ml @ 100 mls/hr Q8H IVPB Last administered on 01/25/19at 08:08; Admin Dose 100 MLS/HR; Start 01/25/19 at 08:00 Miscellaneous Information (*Rx Drug Level Order Reminder*) VANCO TR AT 0700 0700 ONCE XX ; Start 01/26/19 at 07:00; Stop 01/26/19 at 07:01 TIFFANIE DEVINE NP Jan 25, 2019 11:33
[2019-01-25] MEDS: HYDROmorphONE 2 MG TAB PO PRN (13:43)
[2019-01-25 14:03] VITALS: BP 99/58; PULSE 86; RESP 16
[2019-01-25 20:22] VITALS: BP 104/51; PULSE 90; RESP 18
[2019-01-26] MEDS: VANCOMYCIN 500 MG (PMX) 100 ML IVPB SCH ×2 (00:07→09:42)
[2019-01-26] MEDS: HYDROmorphONE 2 MG TAB PO PRN ×2 (00:07→12:10)
[2019-01-26 02:18] VITALS: BP 106/58; PULSE 89; RESP 18
[2019-01-26] MEDS: ONDANSETRON 4 MG INJ IV PRN ×2 (02:21→08:35)
[2019-01-26] MEDS: morphine 2 MG INJ IV PRN ×2 (02:21→08:35)
[2019-01-26] MEDS: MEROPENEM 1 GM/50ML(PMX) 50 ML IVPB SCH ×2 (05:59→13:06)
[2019-01-26] MEDS: PANTOPRAZOLE (EC) 40 MG TAB PO SCH (05:59)
[2019-01-26 08:00] VITALS: BP 110/62; PULSE 76; RESP 18
[2019-01-26] MEDS: DOCUSATE SODIUM 100 MG CAP PO PRN (08:35)
[2019-01-26] MEDS: MUPIROCIN 2% 22 GM OINT TOP SCH (08:36)
[2019-01-26] MEDS ORDERED: CHOLECALCIFEROL 2,000 UNIT CAP PO SCH (09:00)
[2019-01-26] MEDS ORDERED: MULTIVITAMINS/MINERALS TAB PO SCH (09:00)
[2019-01-26] MEDS ORDERED: ASCORBIC ACID 500 MG TAB PO SCH (09:00)
--- NOTE | 2019-01-26 11:53 | PDOCDIS ---
Discharge Instructions CONDITION [id number] Patient Condition: [id number] Guarded HOME CARE INSTRUCTIONS: [id number] Diet Instructions: [id number] Regular FOLLOW UP/APPOINTMENTS Follow-up Plan You are getting discharged with home health nurse for right leg wound care and continuation of intravenous antibiotic for another week. You need to see in his clinic after completion of antibiotic to reassess your wound. Once the infection is completely healed, you need to be seen by a plastic surgeon for possible graft placement. He can discuss this with your vascular surgeon with your next appointment with him. Follow-up with primary care physician in 1 week ROLO JON NP Jan 26, 2019 11:53
[2019-01-26] MEDS ORDERED: MUPI22OI2 TOP (11:56)
[2019-01-26] MEDS ORDERED: CHOL200073 PO (11:56)
[2019-01-26] MEDS ORDERED: VANC1VIA2 IV (11:56)
[2019-01-26] MEDS ORDERED: MERO1VIA IV (11:56)
[2019-01-26] MEDS ORDERED: LACT1CAP28 PO (11:56)
[2019-01-26] MEDS ORDERED: PANT40TA4 PO (11:56)
[2019-01-26] MEDS ORDERED: FAMO-96 PO (11:57)
--- NOTE | 2019-01-26 12:11 | DS ---
Date/Time of Note Date/Time of Note DATE: 01/26/19 TIME: 12:08 Discharge Summary Admission/Discharge Info Admit Date/Time Jan 18, 2019 at 00:20 Discharge Date/Time Discharge Diagnosis Right lower extremity infection History of complicated rt lwr ext DVT w compartment syndrome and acute limb ischemia -s/p fasciotomy and thrombectomy 2 months ago Epistaxis.Resolved Anemia of inflammation Patient Condition: Stable Consults ,ID ,VACSULAR Procedures 01/18/19 CT RT LEG IMPRESSION: Large wounds at the medial and lateral aspect of the lower leg with overlying wound vacs. There is edema and possible phlegmonous material deep to the wounds, without definite loculated or drainable fluid collection, however evaluation for discrete fluid collection is limited without intravenous contrast. No soft tissue gas or CT evidence of osteomyelitis. Hospital Course 38 yo female with h/o extensive DVT of RLE leading to compartment syndrome s/p fasciotomy/[id number] ago who was discharged with wound vac and now returns with likely infection of the wound... Patient was being followed by vascular surgeon who operated her. Patient's wound culture grew Enterobacter/strep B/Jk. She was treated with appropriate antimicrobials per ID choice. Vascular surgeon recommended medical management with dressing change, antibiotic at this time with no indication for debridement/surgical drainage. Recommended eventual plastic surgery follow-up once infection resolves for possible skin graft placement. Patient was continued on anticoagulation. She was also noted with stable anemia. Hospitalization was also noted for transient epistaxis secondary to anticoagulation which was resolved without any further intervention. After discussion with vascular surgeon, we will send patient home with current anticoagulation which is Xarelto. ID recommended 8 more days on IV vancomycin and meropenem which will be arranged with home health per case management. She also has got a midline for IV access. Patient will also need home health wound care. Once these are arranged, she w ill be discharged home. Patient was instructed to follow-up with her vascular surgeon after the antibiotic completion and patient most likely need a plastic surgery follow-up for a possible graft placement. Patient to discuss this with vascular surgeon with her first appointment after antibiotic completion. He was also given information on following up with [facility] if she canot follow up with her regular doctors. patient verbalized understanding. Approximately 60mins spent on coordinating dicharge on this patient. [facility] Active Scripts Famotidine* (Pepcid*) 20 Mg Tablet, 20 MG PO DAILY, #30 TAB Prov:JON,ROLO V. BARK FITTER 01/26/19 Lactobacillus Rhamnosus GG (Culturelle) 1 Each Capsule, 1 CAP PO BID, #60 CAP Prov:JON,ROLO V. BARK FITTER 01/26/19 Mupirocin* (Bactroban*) 2% -22 Gram Oint...g., 1 APPLIC TOP BID, #1 TUB apply to bilateral naresx5 more days Prov:JON,ROLO V. BARK FITTER 01/26/19 Cholecalciferol (Vitamin D3) (VITAMIN D-3) 2,000 Unit Capsule, 2000 UNIT PO DAILY, #30 CAP Prov:JON,ROLO V. BARK FITTER 01/26/19 Vancomycin HCl (Vancomycin HCl) 1 Gm Vial, 1 GM IV DAILY for 8 Days, VIAL Prov:JON,ROLO V. BARK FITTER 01/26/19 Meropenem (Merrem) 1 Gm Vial, 1 GM IV Q12 for 8 Days, VIAL Prov:JON,ROLO V. BARK FITTER 01/26/19 Rivaroxaban* (Xarelto*) 20 Mg Tablet, 20 MG PO WITH DINNER for 90 Days, TAB Prov:JAVIER VOGELP S. 11/24/18 Hydromorphone Hcl (Dilaudid) 2 Mg Tab, 4 MG PO Q4H PRN for MODERATE PAIN LEVEL 4-6, #30 TAB Prov:JAVIER VOGELP S. 11/24/18 Ascorbic Acid (Vitamin C) 500 Mg Tab, 500 MG PO DAILY, #30 TAB 2 Refills Prov:JAVIER VOGELP S. 11/24/18 Multivits,Ca,Minerals/Iron/FA (Thera M Plus Tablet) 1 Each Tablet, 1 TAB PO DAILY, #30 TAB 2 Refills Prov:JOAO VOGELEEP S. 11/24/18 Sennosides* (Senna Lax*) 8.6 Mg Tablet, 1 TAB PO BID, #60 TAB 1 Refill Prov:JAVIER VOGELP S. 11/24/18 Follow-up Plan You are getting discharged with home health nurse for right leg wound care and continuation of intravenous antibiotic for another week. You need to see in his clinic after completion of antibiotic to reassess your wound. Once the infection is completely healed, you need to be seen by a plastic surgeon for possible graft placement. He can discuss this with your vascular surgeon with your next appointment with him. Follow-up with primary care physician in 1 week Primary Care Provider Care Physician No Primary Pending Labs Laboratory Tests Test 01/26/19 07:04 Vancomycin Level Trough 12.6 ug/ml (10.0-20.0) ROLO JON NP Jan 26, 2019 12:11
--- NOTE | 2019-01-26 13:25 | CONS ---
Assessment/Plan Assessment/Plan Hospital Course (Demo Recall) No acute changes overnight alert feels good. Per discussion with wound care nurse the wound looks much better Microbiology: Blood cultures remain negative MRSA swab came back positive Wound culture growing Enterobacter and Corynebact grp JK Antimicrobials: Merrem Vanco Physical examination: Well-developed middle-aged woman who is awake in no distress. Head atraumatic normocephalic neck is supple chest rise symmetrical breath sounds diminished bases heart S1-S2 abdomen soft bowel sounds present. Extremities: With right lower extremity dressing intact Assessment: 1. Systemic inflammatory response syndrome 2. Right lower extremity infected wound 3. MRSA nares colonization 4. 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 Atrial septal defect Plan: Remains stable, continue antibiotics for 7 more days Consultation Date/Type/Reason Admit Date/Time Jan 18, 2019 at 00:20 Initial Consult Date Type of Consult id Date/Time of Note DATE: 01/26/19 TIME: 13:24 Exam/Review of Systems Exam Vitals Vital Signs Date Temp Pulse Resp B/P (MAP) Pulse Ox O2 O2 Flow FiO2 Time Delivery Rate 01/26/19 98.8 76 18 110/62 96 08:00 (78) 01/25/19 Room Air 14:03 Intake and Output 01/25/19 01/25/19 01/26/19 1515:00 23:00 07:00 IntakeIntake Total 650 ml 450 ml 570 ml BalanceBalance 650 ml 450 ml 570 ml Results Result Diagram: 01/25/19 1101 01/25/19 0321 Results 24hrs Laboratory Tests Test 01/26/19 07:04 Vancomycin Level Trough 12.6 Medications Medication Current Medications IV Flush (NS 3 ml) 3 ml PER PROTOCOL IV ; Start 01/18/19 at 01:30 Ondansetron HCl (Zofran Inj) 4 mg Q6H PRN IV NAUSEA/VOMITING Last administered on 01/26/19at 08:35; Admin Dose 4 MG; Start 01/18/19 at 01:30 Acetaminophen (Tylenol Tab) 650 mg Q6H PRN PO .PAIN 1-3 OR TEMP Last administered on 01/21/19at 02:09; Admin Dose 650 MG; Start 01/18/19 at 01:30 Morphine Sulfate (morphine) 2 mg Q4H PRN IV .SEVERE PAIN 7-10 Last administered on 01/26/19 08:35; Admin Dose 2 MG; Start 01/18/19 at 01:30 Docusate Sodium (Colace) 100 mg Q12H PRN PO .CONSTIPATION Last administered on 01/26/19 08:35; Admin Dose 100 MG; Start 01/18/19 at 01:30 Magnesium Hydroxide (Milk Of Mag) 30 ml DAILY PRN PO .CONSTIPATION; Start 01/18/19 at 01:30 Lorazepam (Ativan) 0.5 mg Q6H PRN IV ANXIETY; Start 01/18/19 at 01:30 Albuterol/ Ipratropium (Duoneb) 3 ml Q4H RESP THERAPY PRN HHN SHORTNESS OF BREATH; Start 01/18/19 at 01:30 Hydralazine HCl (Apresoline) 10 mg Q6H PRN IV ELEVATED BLOOD PRESSURE; Start 01/18/19 at 01:30 Nitroglycerin (Nitroglycerin (Sl Tab) 0.4 Mg) 1 tab Q5M PRN SL ANGINA; Start 01/18/19 at 01:30 Hydromorphone HCl (Dilaudid) 4 mg Q4H PRN PO MODERATE PAIN LEVEL 4-6 Last administered on 01/26/19 12:10; Admin Dose 4 MG; Start 01/18/19 at 03:00 Mupirocin (Bactroban) 1 applic BID TOP Last administered on 01/26/19 08:36; Admin Dose 1 APPLIC; Start 01/19/19 at 09:00 Meropenem/Sodium Chloride 50 ml @ 100 mls/hr Q8 IVPB Last administered on 01/26/19 13:06; Admin Dose 100 MLS/HR; Start 01/20/19 at 14:00 Acetaminophen/ Hydrocodone Bitart ([place] (10/325)) 1 tab Q4H PRN PO MODERATE PAIN LEVEL 4-6 Last administered on 01/21/19 18:40; Admin Dose 1 TAB; Start 01/21/19 at 17:30 Pantoprazole (Protonix Tab) 40 mg BID@06,18 PO Last administered on 01/26/19 05:59; Admin Dose 40 MG; Start 01/22/19 at 09:00 Vancomycin HCl (Vanco Iv Per Pharmacy) VANCOMYCIN PER PHARMACY PER PROTOCOL XX ; Start 01/22/19 at 16:00 Ascorbic Acid (Vitamin C) 500 mg DAILY PO Last administered on 01/26/19 08:35; Admin Dose 500 MG; Start 01/26/19 at 09:00 Cholecalciferol (Vitamin D) 2,000 unit DAILY PO Last administered on 01/26/19 08:35; Admin Dose 2,000 UNIT; Start 01/26/19 at 09:00 Lactobacillus Acidophilus/ Rhamnosus (Culturelle) 1 cap BID PO ; Start 01/26/19 at 21:00 Multivitamins/ Minerals (Theragran-M) 1 tab DAILY PO Last administered on 01/26/19 08:35; Admin Dose 1 TAB; Start 01/26/19 at 09:00 Rivaroxaban (Xarelto) 20 mg WITH DINNER PO Last administered on 01/24/19at 17:35; Admin Dose 20 MG; Start 01/24/19 at 18:05; Status Hold Vancomycin HCl 100 ml @ 100 mls/hr Q8H IVPB Last administered on 01/26/19 09:42; Admin Dose 100 MLS/HR; Start 01/25/19 at 08:00 TIFFANIE DEVINE NP Jan 26, 2019 13:25
[2019-01-26 14:00] VITALS: BP_SYST 126; PULSE 64; RESP 18
[2019-01-26] MEDS ORDERED: LACTOBACILLUS RHAMNOSUS CAP PO SCH (21:00)
== END 2019-01-26 15:41 | disposition home health service (06) | DRG 863 ==
LOC: PP2 01-18 00:20
PROVIDERS: ADMIT Internal Medicine; ATTEND Internal Medicine
DX: T81.49XA Infection following a procedure, other surgical site, initial encounter (principal); I82.501 Chronic embolism and thrombosis of unspecified deep veins of right lower extremity; R65.10 Systemic inflammatory response syndrome (SIRS) of non-infectious origin without acute organ dysfunction; Q21.1 Atrial septal defect; Z79.02 Long term (current) use of antithrombotics/antiplatelets; D50.9 Iron deficiency anemia, unspecified; Z22.322 Carrier or suspected carrier of Methicillin resistant Staphylococcus aureus; B95.62 Methicillin resistant Staphylococcus aureus infection as the cause of diseases classified elsewhere; B95.1 Streptococcus, group B, as the cause of diseases classified elsewhere; K21.9 Gastro-esophageal reflux disease without esophagitis; R04.0 Epistaxis
CPT/HCPCS: 73700; 80048; 80053; 80061; 80202; 82306; 82565; 82652; 82728; 83036; 83540; 83605; 83690; 83735; 84100; 84439; 84443; 84520; 85025; 85610; 85730; 87070; 87081; 97110; 97116; 97161; J1170; J1644; J2185; J2270; J2405; J2543; J2916; J3370; J7040; J7050

== ENCOUNTER 2019-01-29 17:57 | Emergency (ER) | payer OTHER ==
[~2019-01-29] VITALS: Ht 154.9 cm; Wt 64.0 kg
[~2019-01-29 17:57] MED LIST changes: +CHOL200073 PO; +FAMO-96 PO; +LACT1CAP28 PO; +MERO1VIA IV; +MUPI22OI2 TOP; +PANT40TA4 PO; +VANC1VIA2 IV
[2019-01-29 18:01] VITALS: Ht 154.9 cm; Wt 64.0 kg
[2019-01-29] MEDS ORDERED: ONDANSETRON 4 MG INJ IV STA (18:28)
[2019-01-29] MEDS ORDERED: morphine 4 MG/ML VIAL IV STA (18:28)
[2019-01-29] MEDS ORDERED: TRAM50TA2 PO (18:29)
--- NOTE | 2019-01-29 18:56 | ERD ---
ER Documentation Chief Complaint Chief Complaint rt leg post op wound , here for pain and re eval , has picc line on lt arm HPI Patient is a 38-year-old female who presents for postoperative right leg pain. Please note a thinner sprayer was used for the entire history. The patient finished pain medicines this morning at 10 AM. She said that she was on tramadol for pain. She had surgery in October which was a fasciotomy for a DVT. She just wants pain medications and a dressing change. Upon review of old medical record the patient has multiple visits for various complaints. Review of the emergency department information exchange system shows visits to 2 separate emergency departments for a total of 9 visits over the past 1 year. She does have a primary doctor. Patient denies fevers. ROS All systems reviewed and are negative except as per history of present illness. Medications Home Meds Active Scripts Tramadol HCl (Tramadol HCl) 50 Mg Tablet, 50 MG PO Q6 PRN for PAIN, #20 TAB Prov:EMMA TIAN MD 01/29/19 Famotidine* (Pepcid*) 20 Mg Tablet, 20 MG PO DAILY, #30 TAB Prov:JON,ROLO V. TOP STEEP TENDER 01/26/19 Lactobacillus Rhamnosus GG (Culturelle) 1 Each Capsule, 1 CAP PO BID, #60 CAP Prov:JON,ROLO V. TOP STEEP TENDER 01/26/19 Mupirocin* (Bactroban*) 2% -22 Gram Oint...g., 1 APPLIC TOP BID, #1 TUB apply to bilateral naresx5 more days Prov:JON,ROLO V. TOP STEEP TENDER 01/26/19 Cholecalciferol (Vitamin D3) (VITAMIN D-3) 2,000 Unit Capsule, 2000 UNIT PO PRATIMA LY, #30 CAP Prov:JON,ROLO V. TOP STEEP TENDER 01/26/19 Vancomycin HCl (Vancomycin HCl) 1 Gm Vial, 1 GM IV DAILY for 8 Days, VIAL Prov:JON,ROLO V. TOP STEEP TENDER 01/26/19 Meropenem (Merrem) 1 Gm Vial, 1 GM IV Q12 for 8 Days, VIAL Prov:JON,ROLO V. TOP STEEP TENDER 01/26/19 Rivaroxaban* (Xarelto*) 20 Mg Tablet, 20 MG PO WITH DINNER for 90 Days, TAB Prov:ONEIL VOGEL 11/24/18 Hydromorphone Hcl (Dilaudid) 2 Mg Tab, 4 MG PO Q4H PRN for MODERATE PAIN LEVEL 4-6, #30 TAB Prov:ONEIL VOGEL S. 11/24/18 Ascorbic Acid (Vitamin C) 500 Mg Tab, 500 MG PO DAILY, #30 TAB 2 Refills Prov:ONEIL VOGEL S. 11/24/18 Multivits,Ca,Minerals/Iron/FA (Thera M Plus Tablet) 1 Each Tablet, 1 TAB PO DAILY, #30 TAB 2 Refills Prov:ONEIL VOGEL S. 11/24/18 Sennosides* (Senna Lax*) 8.6 Mg Tablet, 1 TAB PO BID, #60 TAB 1 Refill Prov:ONEIL VOGEL S. 11/24/18 Allergies Allergies: Coded Allergies: No Known Allergy (Unverified , 01/29/19) PMhx/Soc History of Surgery: Yes Anesthesia Reaction: No Hx Neurological Disorder: No Hx Respiratory Disorders: No Hx Cardiac Disorders: No Hx Psychiatric Problems: No Hx Miscellaneous Medical Probl: No Hx Alcohol Use: No Hx Substance Use: No Hx Tobacco Use: No Smoking Status: Never smoker FmHx Family History: diabetes Physical Exam Vitals Vital Signs Date Temp Pulse Resp B/P (MAP) Pulse Ox O2 O2 Flow FiO2 Time Delivery Rate 01/29/19 98.1 103 18 130/58 99 18:01 (82) Physical Exam Const: No acute distress Head: Atraumatic Eyes: Normal Conjunctiva ENT: Normal External Ears, Nose and Mouth. Neck: Full range of motion. No meningismus. Resp: Clear to auscultation bilaterally Cardio: Regular rate and rhythm, no murmurs Abd: Soft, non tender, non distended. Normal bowel sounds Skin: Fasciotomy scars to the medial and lateral aspect of the right lower extremity without signs of infection Back: No midline or flank tenderness Ext: Healing fasciotomy to the right lower extremity without sign of infection Neur: Awake and alert Psych: Normal Mood and Affect Results 24 hrs Current Medications Medications Dose Sig/Morteza Start Time Status Last (Trade) Ordered Route PRN Stop Time Admin Dose Reason Admin Morphine 4 mg ONCE STAT 01/29/19 DC 01/29/19 Sulfate IV 18:28 18:41 (morphine) 01/29/19 18:29 Ondansetron 4 mg ONCE STAT 01/29/19 DC 01/29/19 HCl (Zofran IV 18:28 18:41 Inj) 01/29/19 18:29 Procedures/MDM Patient is a 38-year-old female who presents with right leg pain. She was given morphine and Zofran through her PICC line in the left upper extremity. She had her wounds cleaned and dressed in the emergency department. She will be discharged with a prescription for tramadol which is what she was taking for pain. She should follow-up with her primary doctor for further pain medication. She can return for any worsening symptoms. There is no sign of infection at this time and she was afebrile. Departure Diagnosis: Primary Impression: Post-op pain Condition: Fair Patient Instructions: Pain Management Referrals: Your doctor Additional Instructions: Llame al doctor fannie richards (Referral Sources) MAANA y jess gisselle RASHAAD PARA DENTRO DE GISSELLE SEMANA. Dgale a la secretaria que nosotros le instruimos hacer esta rashaad.Avise o llame si loza condicin se empeora antes de la rashaad. EMMA TIAN MD Jan 29, 2019 18:56
[2019-01-29 20:55] VITALS: BP 117/77; PULSE 81; RESP 16
== END 2019-01-29 20:56 | disposition home or self-care (01) ==
LOC: E/R 17:57
DX: G89.18 Other acute postprocedural pain (principal)
CPT/HCPCS: 96374; 96375; J2270; J2405; Z7502

== ENCOUNTER 2019-02-10 18:35 | Emergency (ER) | payer OTHER ==
[~2019-02-10] VITALS: Ht 165.1 cm; Wt 146.0 kg
[~2019-02-10 18:35] MED LIST changes: -PANT40TA4 PO; +TRAM50TA2 PO
[2019-02-10 18:52] VITALS: Ht 165.1 cm; Wt 146.0 kg
[2019-02-10] MEDS ORDERED: morphine 4 MG/ML VIAL IV STA (20:26)
[2019-02-10] MEDS ORDERED: ONDANSETRON 4 MG INJ IV STA (20:26)
--- NOTE | 2019-02-10 20:26 | ERD ---
ER Documentation Chief Complaint Chief Complaint RIGHT LEG PAIN X 1 DAY, HAD SX ON 11/02/18 FOR DVT HPI 38-year-old female with a history of ASD and right lower extremity DVT complicated by arterial occlusion requiring fasciotomy and embolectomy 10/2018, postop course is complicated by cellulitis and completed a course of vancomycin and meropenem on 02/03/2019 and ongoing pain. Patient reports she ran out of her [facility] [place] and will not be able to see her doctor in the next several days. Pain is described as sharp, nonradiating and severe. No relieving or exacerbating fa ctors. Denies fevers or chills. ROS All systems reviewed and are negative except as per history of present illness. Medications Home Meds Active Scripts Tramadol HCl (Tramadol HCl) 50 Mg Tablet, 50 MG PO Q6 PRN for PAIN, #12 TAB Prov:EVE LOZADA MD 02/10/19 Tramadol HCl (Tramadol HCl) 50 Mg Tablet, 50 MG PO Q6 PRN for PAIN, #20 TAB Prov:EMMA TIAN MD 01/29/19 Famotidine* (Pepcid*) 20 Mg Tablet, 20 MG PO DAILY, #30 TAB Prov:JONFRANNIEA V. HAND STONE POLISHER 01/26/19 Lactobacillus Rhamnosus GG (Culturelle) 1 Each Capsule, 1 CAP PO BID, #60 CAP Prov:JONFRANNIEA Dillon HAND STONE POLISHER 01/26/19 Mupirocin* (Bactroban*) 2% -22 Gram Oint...g., 1 APPLIC TOP BID, #1 TUB apply to bilateral naresx5 more days Prov:ROLO JON NP 01/26/19 Cholecalciferol (Vitamin D3) (VITAMIN D-3) 2,000 Unit Capsule, 2000 UNIT PO DAILY, #30 CAP Prov:JONROLO V. HAND STONE POLISHER 01/26/19 Vancomycin HCl (Vancomycin HCl) 1 Gm Vial, 1 GM IV DAILY for 8 Days, VIAL Prov:JONFRANNIEA V. HAND STONE POLISHER 01/26/19 Meropenem (Merrem) 1 Gm Vial, 1 GM IV Q12 for 8 Days, VIAL Prov:JON,ROLO V. HAND STONE POLISHER 01/26/19 Rivaroxaban* (Xarelto*) 20 Mg Tablet, 20 MG PO WITH DINNER for 90 Days, TAB Prov:ONEIL VOGEL S. 11/24/18 Hydromorphone Hcl (Dilaudid) 2 Mg Tab, 4 MG PO Q4H PRN for MODERATE PAIN LEVEL 4-6, #30 TAB Prov:JAVIER VOGELP S. 11/24/18 Ascorbic Acid (Vitamin C) 500 Mg Tab, 500 MG PO DAILY, #30 TAB 2 Refills Prov:JAVIER VOGELP S. 11/24/18 Multivits,Ca,Minerals/Iron/FA (Thera M Plus Tablet) 1 Each Tablet, 1 TAB PO DAILY, #30 TAB 2 Refills Prov:JAVIER VOGELP S. 11/24/18 Sennosides* (Senna Lax*) 8.6 Mg Tablet, 1 TAB PO BID, #60 TAB 1 Refill Prov:JAVIER VOGELP S. 11/24/18 Allergies Allergies: Coded Allergies: No Known Allergy (Unverified , 01/29/19) PMhx/Soc Reviewed in chart. As per HPI. History of Surgery: Yes (Appendectomy, , oophorectomy, fasciotomy) Anesthesia Reaction: No Hx Neurological Disorder: Yes (TIA) Hx Respiratory Disorders: No Hx Cardiac Disorders: Yes Hx Psychiatric Problems: No Hx Miscellaneous Medical Probl: Yes (ASD) Hx Alcohol Use: No Hx Substance Use: No Hx Tobacco Use: No FmHx No family history relevant to presenting complaint Physical Exam Vitals Temp: 97.8. Pulse: 104. Respirations: 18. Blood pressure: 138/86. O2 saturation 99% on room air. Physical Exam Const: Alert, moderate distress due to pain. Head: Atraumatic Eyes: Normal Conjunctiva ENT: Normal External Ears, Nose and Mouth. Neck: Full range of motion. No meningismus. Resp: Clear to auscultation bilaterally Cardio: Regular rate and rhythm, no murmurs Abd: Soft, non tender, non distended. Normal bowel sounds Skin: No petechiae or rashes Back: No midline or flank tenderness Ext: Right lower extremity: Dressings are removed. Status post fasciotomy. Wounds are healing well. Minimal tenderness. No purulent discharge. Distal pulses are intact. Neur: Awake and alert Psych: Anxious but not depressed. Results 24 hrs Laboratory Tests Test 02/10/19 20:02 POC Beta HCG, Qualitative NEGATIVE Current Medications Medications Dose Sig/Morteza Start Time Status Last (Trade) Ordered Route PRN Stop Time Admin Dose Reason Admin Morphine 4 mg ONCE STAT 02/10/19 DC 02/10/19 Sulfate IV 20: 20:34 (morphine) 02/10/19 20:28 Ondansetron 4 mg ONCE STAT 02/10/19 DC 02/10/19 HCl (Zofran IV : 20:34 Inj) 02/10/19 20:28 Procedures/MDM DOCUMENTS REVIEWED: ED nurse, prior ED, prior records. REEXAMINATION/REEVALUATION: Time: 21:35. Doing well. Pain resolved. MEDICAL DECISION MAKIN-year-old female with a history of ASD and right lower extremity DVT complicated by arterial occlusion requiring fasciotomy and embolectomy 10/2018, postop course is complicated by cellulitis and completed a course of vancomycin and meropenem on 02/03/2019 and ongoing pain. Pain resolved with intravenous morphine [address] of the lower extremity with intravenous contrast considered to evaluate for ongoing infection but deferred as there is no clinical evidence of cellulitis, necrotizing fasciitis, abscess or arterial insufficiency. Stable for discharge with precautionary instructions and urgent, outpatient follow-up as counseled with her PMD on Thursday . Counseled patient and family regarding diagnosis and need for followup. Understands to return to ED immediately if symptoms recur, worsen or any other concerns. Departure Diagnosis: Primary Impression: Pain of right leg Additional Impressions: History of fasciotomy Postoperative pain History of atrial septal defect Condition: Stable (Improved) EVE LOZADA MD Feb 10, 2019 20:26
[2019-02-10] MEDS ORDERED: TRAM50TA2 PO (21:49)
[2019-02-10 22:30] VITALS: BP 118/79; PULSE 69; RESP 18
== END 2019-02-10 22:30 | disposition home or self-care (01) ==
LOC: E/R 18:35
DX: M79.604 Pain in right leg (principal); Z98.890 Other specified postprocedural states
CPT/HCPCS: 81025; 96374; 96375; J2270; J2405; Z7502; Z7610

== ENCOUNTER 2019-03-07 14:39 | Inpatient (IN) | payer OTHER ==
[~2019-03-07] VITALS: Ht 165.1 cm; Wt 67.8 kg
[~2019-03-07 14:39] MED LIST changes: +BEN25 PO; +NALO4SPR NS
[2019-03-07] MEDS ORDERED: HYDROmorphONE 1 MG/ML SYG IV STA (15:30)
--- NOTE | 2019-03-07 15:57 | ERD ---
ER Documentation Chief Complaint Chief Complaint right leg pain x 3 days, had surgery november 05 for dvt HPI 38-year-old female with past medical history of hypertension, diabetes type 2, past surgical history of DVT (popliteal) and arterial occlusion (R post tibular artery) to right lower extremity status post thrombectomy, status post 3 part bilateral compartment fasciotomy, course complicated by cellulitis/infection in January of this year requiring home administration of IV antibiotics who presents with complaint of right lower extremity pain over the past 3 days. Patient seen for postop pain in ED several times over the past several months. Has been taking tramadol for pain without much improvement in symptoms. She otherwise denies fevers, chills, chest pain, shortness of breath, dyspnea, nausea, vomiting, diarrhea, abdominal pain, urinary symptoms, any other concerning symptoms. Patient has wound care at home via visiting nurse. Is to have follow-up with plastic surgery in the future for graft placement. ROS All systems reviewed and are negative except as per history of present illness. Medications Home Meds Active Scripts Tramadol HCl (Tramadol HCl) 50 Mg Tablet, 50 MG PO Q6 PRN for PAIN, #12 TAB Prov:EVE LOZADA MD 02/10/19 Tramadol HCl (Tramadol HCl) 50 Mg Tablet, 50 MG PO Q6 PRN for PAIN, #20 TAB Prov:EMMA TIAN MD 01/29/19 Famotidine* (Pepcid*) 20 Mg Tablet, 20 MG PO DAILY, #30 TAB Prov:ROLO JON V. STUDENT ADVISOR 01/26/19 Lactobacillus Rhamnosus GG (Culturelle) 1 Each Capsule, 1 CAP PO BID, #60 CAP Prov:ROLO JON NP 01/26/19 Mupirocin* (Bactroban*) 2% -22 Gram Oint...g., 1 APPLIC TOP BID, #1 TUB apply to bilateral naresx5 more days Prov:ROLO JON NP 01/26/19 Cholecalciferol (Vitamin D3) (VITAMIN D-3) 2,000 Unit Capsule, 2000 UNIT PO DAILY, #30 CAP Prov:JONFRANNIEA V. STUDENT ADVISOR 01/26/19 Vancomycin HCl (Vancomycin HCl) 1 Gm Vial, 1 GM IV DAILY for 8 Days, VIAL Prov:ROLO JON NP 01/26/19 Meropenem (Merrem) 1 Gm Vial, 1 GM IV Q12 for 8 Days, VIAL Prov:ROLO JON V. STUDENT ADVISOR 01/26/19 Rivaroxaban* (Xarelto*) 20 Mg Tablet, 20 MG PO WITH DINNER for 90 Days, TAB Prov:RAHI,ONEIL S. 11/24/18 Hydromorphone Hcl (Dilaudid) 2 Mg Tab, 4 MG PO Q4H PRN for MODERATE PAIN LEVEL 4-6, #30 TAB Prov:RAHI,ONEIL S. 11/24/18 Ascorbic Acid (Vitamin C) 500 Mg Tab, 500 MG PO DAILY, #30 TAB 2 Refills Prov:RAHI,ONEIL S. 11/24/18 Multivits,Ca,Minerals/Iron/FA (Thera M Plus Tablet) 1 Each Tablet, 1 TAB PO DAILY, #30 TAB 2 Refills Prov:RAHI,ONEIL S. 11/24/18 Sennosides* (Senna Lax*) 8.6 Mg Tablet, 1 TAB PO BID, #60 TAB 1 Refill Prov:RAHI,ONEIL S. 11/24/18 Allergies Allergies: Coded Allergies: No Known Allergy (Unverified , 01/29/19) PMhx/Soc History of Surgery: Yes (Appendectomy, , oophorectomy, fasciotomy,right leg DVT removal sx) Anesthesia Reaction: No Hx Neurological Disorder: Yes (TIA) Hx Respiratory Disorders: No Hx Cardiac Disorders: Yes Hx Psychiatric Problems: No Hx Miscellaneous Medical Probl: Yes (ASD) Hx Alcohol Use: No Hx Substance Use: No Hx Tobacco Use: No Smoking Status: Never smoker FmHx Family History: diabetes Physical Exam Vitals Vital Signs Date Temp Pulse Resp B/P (MAP) Pulse Ox O2 O2 Flow FiO2 Time Delivery Rate 03/07/19 98.3 112 18 149/83 100 14:47 (105) Physical Exam Const: No acute distress Head: Atraumatic Eyes: Normal Conjunctiva ENT: Normal External Ears, Nose and Mouth. Neck: Full range of motion. No meningismus. Resp: Clear to auscultation bilaterally Cardio: Regular rate and rhythm, no murmurs Abd: Soft, non tender, non distended. Normal bowel sounds Skin: No petechiae or rashes Back: No midline or flank tenderness Ext: Right lower extremity bilateral fasciotomy scar, pink with granulation tissue, initial bandages soaked with purulent fluid, odiferous, otherwise good distal pulses, soft compartments, no surrounding erythema to scars, wiggles and moves all toes Neur: Awake and alert Psych: Normal Mood and Affect Result Diagram: 03/07/19 1549 03/07/19 1549 Results 24 hrs Laboratory Tests Test 03/07/19 15:49 03/07/19 15:56 White Blood Count 9.6 10^3/ul Red Blood Count 4.22 10^6/ul Hemoglobin 11.3 g/dl Hematocrit 35.3 % Mean Corpuscular Volume 83.6 fl Mean Corpuscular Hemoglobin 26.8 pg Mean Corpuscular Hemoglobin Concent 32.0 g/dl Red Cell Distribution Width 17.2 % Platelet Count 441 10^3/UL Mean Platelet Volume 10.1 fl Immature Granulocytes % 0.300 % Neutrophils % 67.7 % Lymphocytes % 21.6 % Monocytes % 5.9 % Eosinophils % 2.9 % Basophils % 1.6 % Nucleated Red Blood Cells % 0.0 /100WBC Immature Granulocytes # 0.030 10^3/ul Neutrophils # 6.5 10^3/ul Lymphocytes # 2.1 10^3/ul Monocytes # 0.6 10^3/ul Eosinophils # 0.3 10^3/ul Basophils # 0.2 10^3/ul Nucleated Red Blood Cells # 0.0 10^3/ul Sodium Level 140 mmol/L Potassium Level 3.5 mmol/L Chloride Level 105 mmol/L Carbon Dioxide Level 25 mmol/L Anion Gap 10 Blood Urea Nitrogen 2 mg/dl Creatinine 0.54 mg/dl Est Glomerular Filtrat Rate mL/min > 60 mL/min Glucose Level 151 mg/dl Calcium Level 9.2 mg/dl Total Bilirubin 0.3 mg/dl Direct Bilirubin 0.00 mg/dl Indirect Bilirubin 0.3 mg/dl Aspartate Amino Transf (AST/SGOT) 91 IU/L Alanine Aminotransferase (ALT/SGPT) 61 IU/L Alkaline Phosphatase 155 IU/L Total Protein 8.3 g/dl Albumin 4.1 g/dl Globulin 4.20 g/dl Albumin/Globulin Ratio 0.97 POC Venous Lactate 2.0 mmol/L Current Medications Medications Dose Sig/Morteza Start Time Status Last (Trade) Ordered Route PRN Stop Time Admin Dose Reason Admin 1 mg ONCE STAT 03/07/19 DC 03/07/19 Hydromorphone IV 15:30 15:52 HCl 03/07/19 15:32 (Dilaudid) Procedures/MDM 38-year-old female diabetic who presents with complaint of right lower extremity pain status post fasciotomy to bilateral right lower extremity. Given purulent drainage to bilateral wound, history of diabetes type 2 the concern is for developing wound infection. Per discussion with Dr. Singh ED attending will admit patient for further evaluation and treatment. Disposition: Hospital admission for IV antibiotics, further care and treatment Departure Diagnosis: Primary Impression: Postoperative pain Additional Impression: Pain of right leg Condition: Stable KENTRELL HERNANDEZ PA-C Mar 07, 2019 15:57
[2019-03-07] MEDS ORDERED: SODIUM CHLORIDE 0.9% 1L BAG IV* STA (16:26)
[2019-03-07] MEDS ORDERED: VANCOMYCIN 1 GM (PMX) 250 ML IVPB ONE (16:30)
[2019-03-07] MEDS ORDERED: PIPER-TAZO 3.375 GM IV (PMX) 100 ML IVPB ONE (16:30)
[2019-03-07] MEDS ORDERED: ONDANSETRON 4 MG INJ IV STA (17:52)
--- NOTE | 2019-03-07 19:56 | HP ---
Date/Time of Note Date/Time of Note DATE: 03/07/19 TIME: 19:56 Assessment/Plan VTE Prophylaxis SCD applied (from Nsg): Yes Pharmacological prophylaxis: NA/contraindicated Pharm contraindication: low risk/ambulating Lines/Catheters IV Catheter Type (from Nrsg): Peripheral IV Assessment/Plan Hospital Course This is a 38-year-old female being admitted to the telemetry floor for: 1. Recurrent right lower extremity postop infection: Patient has a history of Three compartment fasciotomy right calf, Norberto thrombectomy right posterior tibial artery, s/p wound wac. Previous wound cultures were positive for Enterobacter cloacae, strep agalactiae group B, Corynebacterium jk. Will initiate vancomycin and meropenem at the current time based on culture and sensitivities. Will await wound culture results. Will consult infectious disease Dr. Zafar. Lactic acid levels did rise in the emergency department with the latest being 3.0. Will continue on IV antibiotics, trend lactic acid levels. We will also obtain a CT of the right lower extremity with IV contrast to evaluate for any underlying fluid collection/abscess. 2. Right lower extremity deep venous thrombosis. Was initiated on Xarelto in October 2018, unclear if she is currently on it. Will need to confirm this with her. We will hold off on any anticoagulation given the need for possible debridement. Ultrasound Doppler arterial and venous studies were done in the emergency department it did not show any worsening stenosis. 3. History of atrial septal defect. This was seen on echocardiogram with bubble study performed in 09/2018. Previously cardiology evaluated the patient and did not recommend shunt closure. 4. History of iron-deficiency anemia. Hemoglobin stable. Continue to monitor for now. 5. History of prediabetes, last A1c was 5.6. Diabetic diet 6. DVT and GI prophylaxis: SCDs, no GI prophylaxis Further treatment strategy will be implemented as per the clinical course Result Diagram: 03/07/19 1549 03/07/19 1549 Results 24hrs Laboratory Tests Test 03/07/19 15:49 03/07/19 15:56 03/07/19 16:56 White Blood Count 9.6 # Red Blood Count 4.22 # Hemoglobin 11.3 #L Hematocrit 35.3 #L Mean Corpuscular Volume 83.6 Mean Corpuscular Hemoglobin 26.8 L Mean Corpuscular Hemoglobin Concent 32.0 Red Cell Distribution Width 17.2 H Platelet Count 441 #H Mean Platelet Volume 10.1 Immature Granulocytes % 0.300 Neutrophils % 67.7 Lymphocytes % 21.6 Monocytes % 5.9 Eosinophils % 2.9 Basophils % 1.6 Nucleated Red Blood Cells % 0.0 Immature Granulocytes # 0.030 Neutrophils # 6.5 Lymphocytes # 2.1 Monocytes # 0.6 Eosinophils # 0.3 Basophils # 0.2 H Nucleated Red Blood Cells # 0.0 Prothrombin Time 15.7 H Prothrombin Time Ratio 1.2 INR International Normalized Ratio 1.24 Activated Partial Thromboplast Time 34.6 Urine Color STRAW Urine Clarity CLEAR Urine pH 7.0 Urine Specific [place] 1.003 Urine Ketones NEGATIVE Urine Nitrite NEGATIVE Urine Bilirubin NEGATIVE Urine Urobilinogen NEGATIVE Urine Leukocyte Esterase NEGATIVE Urine Hemoglobin NEGATIVE Urine Glucose NEGATIVE Urine Total Protein NEGATIVE Sodium Level 140 Potassium Level 3.5 Chloride Level 105 Carbon Dioxide Level 25 Anion Gap 10 Blood Urea Nitrogen 2 L Creatinine 0.54 Est Glomerular Filtrat Rate mL/min > 60 Glucose Level 151 Calcium Level 9.2 Total Bilirubin 0.3 Direct Bilirubin 0.00 Indirect Bilirubin 0.3 Aspartate Amino Transf (AST/SGOT) 91 H Alanine Aminotransferase (ALT/SGPT) 61 Alkaline Phosphatase 155 H Troponin I < 0.012 Total Protein 8.3 H Albumin 4.1 Globulin 4.20 H Albumin/Globulin Ratio 0.97 POC Venous Lactate 2.0 Lactic Acid Level 1.7 HPI/ROS Admit Date/Time Admit Date/Time Hx of Present Illness Chief complaint: Right lower extremity pain x3 days, discharge, foul odor This is a 38-year-old female with past medical history of past surgical history of DVT (popliteal) and arterial occlusion (R post tibular artery) to right lower extremity status post thrombectomy, status post 3 part bilateral compartment fasciotomy, course complicated by cellulitis/infection in January of this year requiring home administration of IV antibiotics who presents with complaint of right lower extremity pain over the past 3 days. Patient seen for postop pain in ED several times over the past several months. Has been taking tramadol for pain without much improvement in symptoms. She does report that she noticed a foul odor from her leg over the last few days and some mild discharge. She otherwise denies fevers, chills, chest pain, shortness of breath, dyspnea, nausea, vomiting, diarrhea, abdominal pain, urinary symptoms, any other concern ing symptoms. She denies decreased sensation of her lower extremity or to the extremity being cold to touch. Patient has wound care at home via visiting nurse. Is to have follow-up with plastic surgery in the future for graft placement. Allergies NKDA Medications: See ROLY ROD Const: As per HPI Eyes : No pain discharge or redness or change in visual acuity ENT: No pain, sore throat, congestion, congestion, dysphagia or discharge Respiratory: No shortness of breath, cough, sputum, wheezing, or pleuritic pain Cardiovascular: No chest pain, palpitation, PND, or edema GI : no change in appetite, abdominal pain, nausea, vomiting, diarrhea, constipation, or change in the color his stool Genitourinary: No dysuria, hematuria, flank pain , discharge or CVA tenderness Musculoskeletal: As per HPI Skin: No rash, bruising or hives Neuro: No headache, dizziness, syncope, seizure, focal weakness Endocrine: No polyuria, polydipsia, temperature intolerance Psych: No hallucination, depression, anxiety or suicidal ideation PMH/Family/Social Past Medical History Right lower extremity DVT status post 3 compartment fasciotomy of the right calf, Norberto thrombectomy of the [employer] for critical limb ischemia and compartment syndrome, wound VAC, atrial septal defect, iron deficiency anemia, prediabetes Medications Current Medications Diphenhydramine HCl (Benadryl) 25 mg ONCE ONCE IV Last administered on 03/07/19at 19:45; Admin Dose 25 MG; Start 03/07/19 at 20:00; Stop 03/07/19 at 2 0:01 Coded Allergies: No Known Allergy (Unverified , 01/29/19) Past Surgical History Three compartment fasciotomy right calf, Norberto thrombectomy right posterior tibial artery, s/p wound [facility] Family History Significant Family History: no pertinent family hx Social History Alcohol Use: none Smoking Status: Never smoker Drug Use: none Exam/Review of Systems Vital Signs Vitals Vital Signs Date Temp Pulse Resp B/P (MAP) Pulse Ox O2 O2 Flow FiO2 Time Delivery Rate 03/07/19 98.2 70 16 112/64 99 Room Air 19:40 (80) Exam Exam General: Patient is well-developed well-nourished The patient is alert oriented -3 lying comfortably in bed. HEENT: Atraumatic, normocephalic. The pupils are equal, round and reactive. Ext raocular motor are intact Neck: Supple with full range of motion. No rigidity or meningismus Chest: Nontender Lungs: Clear to auscultation bilaterally no crackles rales or wheezing Heart: Normal S1-S2, Regular rhythm and rate. No murmur, S3, or S4 Abdomen: Soft , nontender, nondistended , bowel sounds are present. No guarding no rebound tenderness , No masses or organomegaly. No costovertebral temporal angle mass Extremities: Right lower extremity: Fasciotomy scars present, dressings were changed and are currently clean dry and intact. Patient presented with dressings in the emergency department that did have discharge and foul odor. Patient's pulses are present, she is able to wiggle her toes, skin is warm to touch. Neurologic: Normal mental status, speech normal, cranial nerves II through XII are intact, motor and sensory are intact, Additional Comments PROCEDURE: Right lower extremity arterial ultrasound CLINICAL INDICATION: Right lower extremity pain and claudication. Open wound. TECHNIQUE: Landin-scale and color images with doppler of the lower extremity were obtained COMPARISON: November 23, 2018. FINDINGS: Antegrade flow is noted in all visualized arteries of the lower extremity. Biphasic wave forms throughout the right lower extremity. Rt AQUARIST 152 cm/s Rt Profunda 89 cm/s Rt Prox SFA 124 cm/s Rt Mid SFA 112 cm/s Rt Dist SFA 98 cm/s Rt Marcia 84 cm/s Rt Dorsalis Pedis 66 cm/s Rt Post Tibial 66 cm/s Rt RAMÓN not performed. IMPRESSION: Elevated velocity in the right common femoral artery, possibly indicating a 30 - 49% stenosis. If further characterization of the arterial vasculature is needed, CTA is recommended. RPTAT: AA .Jesús Smalls MD, MD Date Time Electronically viewed and signed by .Jesús Smalls MD, MD on 03/07/2019 17:42 .P/ CC: FLACO ESPINAL MD [id number] PROCEDURE: US Lower extremity Venous. CLINICAL INDICATION: Lower extremity pain and swelling TECHNIQUE: Multiple sonographic images of the right lower extremity deep venous system was obtained utilizing grayscale, color-flow, compressive sonography and doppler imaging. The images were reviewed on a PACS workstation. COMPARISON: November 05, 2018. FINDINGS: Common femoral vein: Compressible and vascular flow. Femoral vein: Compressible and vascular flow. Popliteal vein: Compressible and vascular flow. Calf veins: Vascular flow. IMPRESSION: No sonographic evidence for deep venous thrombosis. The previously seen venous thrombus has resolved. RPTAT: AA .Jesús Smalls MD MD Date Time Electronically viewed and signed by .Jesús Smalls MD, MD on 03/07/2019 17:35 .P/ CC: FLACO ESPINAL MD [id number] SHYAM WELLS Mar 07, 2019 19:56
[2019-03-07] MEDS ORDERED: ACETAMINOPHEN 325 MG TAB PO PRN (20:00)
[2019-03-07] MEDS ORDERED: BISACODYL (EC) 5 MG TAB PO PRN (20:00)
[2019-03-07] MEDS ORDERED: DIPHENHYDRAMINE 50 MG INJ IV ONE (20:00)
[2019-03-07] MEDS ORDERED: DOCUSATE SODIUM 100 MG CAP PO PRN (20:00)
--- NOTE | 2019-03-07 20:33 | ERD ---
ER Documentation Chief Complaint Chief Complaint right leg pain x 3 days, had surgery november 05 for dvt HPI The patient is a 38-year-old female, presenting to the ER because of acute on chronic right lower extremity wound since she had surgery in October for complicated DVT with compartment syndrome. She had fasciotomy and thrombectomy. She has previously been admitted for cellulitis. She complains of worsening pain for the last 3 days, increased wound discharge, denies fever, chills, neck pain, chest pain, dyspnea, abdominal pain, vomiting. She last took antibiotic for her right leg cellulitis a month ago. She does not smoke nor drink He was initially seen by the PA Medical history: None Past surgical history: 2 , appendectomy, right ovarian cyst ROS All systems reviewed and are negative except as per history of present illness. Medications Home Meds Active Scripts Tramadol HCl (Tramadol HCl) 50 Mg Tablet, 50 MG PO Q6 PRN for PAIN, #12 TAB Prov:EVE LOZADA MD 02/10/19 Tramadol HCl (Tramadol HCl) 50 Mg Tablet, 50 MG PO Q6 PRN for PAIN, #20 TAB Prov:EMMA TIAN MD 01/29/19 Famotidine* (Pepcid*) 20 Mg Tablet, 20 MG PO DAILY, #30 TAB Prov:JONFRANNIEA V. FISHER DIVING 01/26/19 Lactobacillus Rhamnosus GG (Culturelle) 1 Each Capsule, 1 CAP PO BID, #60 CAP Prov:JON,ROLO V. FISHER DIVING 01/26/19 Mupirocin* (Bactroban*) 2% -22 Gram Oint...g., 1 APPLIC TOP BID, #1 TUB apply to bilateral naresx5 more days Prov:JONFRANNIEA V. FISHER DIVING 01/26/19 Cholecalciferol (Vitamin D3) (VITAMIN D-3) 2,000 Unit Capsule, 2000 UNIT PO DAILY, #30 CAP Prov:JON,ROLO V. FISHER DIVING 01/26/19 Vancomycin HCl (Vancomycin HCl) 1 Gm Vial, 1 GM IV DAILY for 8 Days, VIAL Prov:JON,ROLO V. FISHER DIVING 01/26/19 Meropenem (Merrem) 1 Gm Vial, 1 GM IV Q12 for 8 Days, VIAL Prov:JONROLO V. FISHER DIVING 01/26/19 Rivaroxaban* (Xarelto*) 20 Mg Tablet, 20 MG PO WITH DINNER for 90 Days, TAB Prov:ONEIL VOGEL S. 11/24/18 Hydromorphone Hcl (Dilaudid) 2 Mg Tab, 4 MG PO Q4H PRN for MODERATE PAIN LEVEL 4-6, #30 TAB Prov:JAVIER VOGELP S. 11/24/18 Ascorbic Acid (Vitamin C) 500 Mg Tab, 500 MG PO DAILY, #30 TAB 2 Refills Prov:ONEIL VOGEL S. 11/24/18 Multivits,Ca,Minerals/Iron/FA (Thera M Plus Tablet) 1 Each Tablet, 1 TAB PO DAILY, #30 TAB 2 Refills Prov:ONEIL VOGEL S. 11/24/18 Sennosides* (Senna Lax*) 8.6 Mg Tablet, 1 TAB PO BID, #60 TAB 1 Refill Prov:ONEIL VOGEL S. 11/24/18 Allergies Allergies: Coded Allergies: No Known Allergy (Unverified , 01/29/19) PMhx/Soc History of Surgery: Yes (Appendectomy, , Ovarian cyst, fasciotomy,right leg DVT removal sx) Anesthesia Reaction: No Hx Neurological Disorder: Yes (TIA) Hx Respiratory Disorders: No Hx Cardiac Disorders: Yes Hx Psychiatric Problems: No Hx Miscellaneous Medical Probl: Yes (ASD) Hx Alcohol Use: No Hx Substance Use: No Hx Tobacco Use: No Smoking Status: Never smoker Physical Exam Vitals Vital Signs Date Temp Pulse Resp B/P (MAP) Pulse Ox O2 O2 Flow FiO2 Time Delivery Rate 03/07/19 98.2 70 16 112/64 99 Room Air 19:40 (80) 03/07/19 98.2 74 17 111/62 99 Room Air 18:44 (78) 03/07/19 98.1 76 18 126/66 100 Room Air 17:15 (86) 03/07/19 98.3 112 18 149/83 100 14:47 (105) Physical Exam Const: No acute distress. Head: Atraumatic. Eyes: Normal Conjunctiva. ENT: Normal External Ears, Nose and Mouth. Neck: Full range of motion. No meningismus. Resp: Clear to auscultation bilaterally. Cardio: Regular rate and rhythm. Abd: Soft, non distended, normal bowel sounds, non tender. Skin: No petechiae or rashes. Back: No midline or flank tenderness. Ext: Right lower extremity with infected open wound medial and lateral with discharge and vague calf tenderness Neur: Awake and alert. No focal deficit Psych: Normal Mood and Affect. Result Diagram: 03/07/19 1549 03/07/19 1549 Results 24 hrs Laboratory Tests Test 03/07/19 15:49 03/07/19 15:56 03/07/19 16:56 03/07/19 19:21 White Blood Count 9.6 10^3/ul Red Blood Count 4.22 10^6/ul Hemoglobin 11.3 g/dl Hematocrit 35.3 % Mean Corpuscular 83.6 fl Volume Mean Corpuscular 26.8 pg Hemoglobin Mean Corpuscular 32.0 g/dl Hemoglobin Concent Red Cell 17.2 % Distribution Width Platelet Count 441 10^3/UL Mean Platelet 10.1 fl Volume Immature 0.300 % Granulocytes % Neutrophils % 67.7 % Lymphocytes % 21.6 % Monocytes % 5.9 % Eosinophils % 2.9 % Basophils % 1.6 % Nucleated Red 0.0 /100WBC Blood Cells % Immature 0.030 10^3/ul Granulocytes # Neutrophils # 6.5 10^3/ul Lymphocytes # 2.1 10^3/ul Monocytes # 0.6 10^3/ul Eosinophils # 0.3 10^3/ul Basophils # 0.2 10^3/ul Nucleated Red 0.0 10^3/ul Blood Cells # Prothrombin Time 15.7 Sec Prothrombin Time 1.2 Ratio INR International 1.24 Normalized Ratio Activated 34.[address] Time Urine Color STRAW Urine Clarity CLEAR Urine pH 7.0 Urine Specific 1.003 [place]augen Urine Ketones NEGATIVE mg/dL Urine Nitrite NEGATIVE mg/dL Urine Bilirubin NEGATIVE mg/dL Urine Urobilinogen NEGATIVE mg/dL Urine Leukocyte NEGATIVE Saad/ul Esterase Urine Hemoglobin NEGATIVE mg/dL Urine Glucose NEGATIVE mg/dL Urine Total NEGATIVE mg/dl Protein Sodium Level 140 mmol/L Potassium Level 3.5 mmol/L Chloride Level 105 mmol/L Carbon Dioxide 25 mmol/L Level Anion Gap 10 Blood Urea 2 mg/dl Nitrogen Creatinine 0.54 mg/dl Est Glomerular > 60 mL/min Filtrat Rate mL/min Glucose Level 151 mg/dl Calcium Level 9.2 mg/dl Total Bilirubin 0.3 mg/dl Direct Bilirubin 0.00 mg/dl Indirect Bilirubin 0.3 mg/dl Aspartate Amino 91 IU/L Transf (AST/SGOT) Alanine 61 IU/L Aminotransferase ( ALT/SGPT) Alkaline 155 IU/L Phosphatase Troponin I < 0.012 ng/ml C-Reactive Protein 1.9 mg/dl Total Protein 8.3 g/dl Albumin 4.1 g/dl Globulin 4.20 g/dl Albumin/Globulin 0.97 Ratio POC Venous Lactate 2.0 mmol/L Lactic Acid Level 1.7 mmol/L 3.0 mmol/L Current Medications Medications Dose Sig/Morteza Start Time Status Last (Trade) Ordered Route PRN Stop Time Admin Dose Reason Admin 1 mg ONCE STAT 03/07/19 DC 03/07/19 Hydromorphone IV 15:30 15:52 HCl 03/07/19 15:32 (Dilaudid) Sodium 1,920 ml BOLUS OVER 2 03/07/19 DC 03/07/19 Chloride HOURS STAT 16:26 16:52 (NS) IV* 03/07/19 16:31 Vancomycin 250 ml @ ONCE ONCE 03/07/19 DC 03/07/19 HCl 125 mls/hr IVPB 16:30 17:50 03/07/19 18:29 Piperacillin 100 ml @ ONCE ONCE 03/07/19 DC 03/07/19 Sod/ 200 mls/hr IVPB 16:30 17:20 Tazobactam 03/07/19 16:59 Sod Ondansetron 4 mg ONCE STAT 03/07/19 DC 03/07/19 HCl (Zofran IV 17:52 18:03 Inj) 03/07/19 17:54 25 mg ONCE ONCE 03/07/19 DC 03/07/19 Diphenhydrami IV 20:00 19:45 ne HCl 03/07/19 20:01 (Benadryl) IV Flush 3 ml PER 03/07/19 (NS 3 ml) PROTOCOL IV 20:00 Ondansetron 4 mg Q6H PRN 03/07/19 HCl (Zofran IV 20:00 Inj) NAUSEA/VOMITI NG 650 mg Q6H PRN 03/07/19 Acetaminophen PO .PAIN 1-3 20:00 (Tylenol OR TEMP Tab) 1 tab Q6H PRN 03/07/19 Acetaminophen PO .MOD PAIN 20:00 / 4-6 Hydrocodone Bitart ([place] (5/325)) 0.5 mg Q4H PRN 03/07/19 Hydromorphone IV .SEVERE 20:00 HCl PAIN 7-10 (Dilaudid) Docusate 100 mg Q12H PRN 03/07/19 Sodium PO 20:00 (Colace) .CONSTIPATION Bisacodyl 5 mg DAILY PRN 03/07/19 (Dulcolax) PO 20:00 .CONSTIPATION Enoxaparin 40 mg DAILY SC 03/08/19 Sodium 09:00 (Lovenox) Procedures/[place] [address] Radiology Main Line: [phone] DIAGNOSTIC IMAGING REPORT Patient: DEBBIE SHETTY : 1980 Age: 38 Sex: F MR #: [id number] DOS: 03/07/19 1637 Ordering MD: FLACO ESPINAL MD Location: [facility] Room/Bed: PROCEDURE: Right lower extremity arterial ultrasound CLINICAL INDICATION: Right lower extremity pain and claudication. Open wound. TECHNIQUE: Landin-scale and color images with doppler of the lower extremity were obtained COMPARISON: November 23, 2018. FINDINGS: Antegrade flow is noted in all visualized arteries of the lower extremity. Biphasic wave forms throughout the right lower extremity. Rt SPOOLING SUPERVISOR 152 cm/s Rt Profunda 89 cm/s Rt Prox SFA 124 cm/s Rt Mid SFA 112 cm/s Rt Dist SFA 98 cm/s Rt Marcia 84 cm/s Rt Dorsalis Pedis 66 cm/s Rt Post Tibial 66 cm/s Rt RAMÓN not performed. IMPRESSION: Elevated velocity in the right common femoral artery, possibly indicating a 30 - 49% stenosis. If further characterization of the arterial vasculature is needed, CTA is recommended. RPTAT: AA .Jesús Smalls MD, MD Date Time Electronically viewed and signed by .Jesús Smalls MD, MD on 03/07/2019 17:42 .P/ CC: FLACO ESPINAL MD [phone] [place] [address] Radiology Main Line: [phone] DIAGNOSTIC IMAGING REPORT Patient: DEBBIE SHETTY : 1980 Age: 38 Sex: F MR #: [id number] DOS: 03/07/19 1637 Ordering MD: FLACO ESPINAL MD Location: [facility] Room/Bed: PROCEDURE: US Lower extremity Venous. CLINICAL INDICATION: Lower extremity pain and swelling TECHNIQUE: Multiple sonographic images of the right lower extremity deep venous system was obtained utilizing grayscale, color-flow, compressive sonography and doppler imaging. The images were reviewed on a PACS workstation. COMPARISON: November 05, 2018. FINDINGS: Common femoral vein: Compressible and vascular flow. Femoral vein: Compressible and vascular flow. Popliteal vein: Compressible and vascular flow. Calf veins: Vascular flow. IMPRESSION: No sonographic evidence for deep venous thrombosis. The previously seen venous thrombus has resolved. RPTAT: AA .Jesús Smalls MD, MD Date Time Electronically viewed and signed by .Jesús Smalls MD, on 03/07/2019 17:35 .P/ CC: FLACO ESPINAL MD [id number] [place] [address] Radiology Main Line: [phone] DIAGNOSTIC IMAGING REPORT Patient: DEBBIE SHETTY : 1980 Age: 38 Sex: F MR #: [id number] DOS: 03/07/19 1626 Ordering MD: FLACO ESPINAL MD Location: [facility] Room/Bed: PROCEDURE: XR Chest 1 View. CLINICAL INDICATION: Shortness of breath. Chest pain. TECHNIQUE: Single view of the chest was obtained. COMPARISON: DR BAUGH 11/12/2018 FINDINGS: Support lines and tubes: None. Mediastinum: Within normal limits of size. Lungs: Hypoinflated lungs. Scattered atelectasis in both lungs. No consolidations. No pneumothorax. Osseous structures: Intact. Other: None. IMPRESSION: Hypoinflated lungs with scattered subsegmental atelectasis in both lungs. RPTAT: AA .Jesús Smalls MD, Date Time Electronically viewed and signed by .Jesús Smalls MD, on 03/07/2019 17:34 .P/ CC: FLACO ESPINAL MD [phone] EKG: Read by emergency physician Rate/Rhythm: Normal Sinus Rhythm 75 beats/min QRS, ST, T-waves: No ST elevation, no T inversion, low voltage Impression: Abnormal EKG MEDICAL MAKING DECISION: The patient is a 38-year-old female, presenting with acute severe sepsis, acute on chronic right lower extremity cellulitis She was treated with normal saline 30 mm/kg IV, vancomycin IV, Zosyn IV for acute severe sepsis The differential diagnoses considered include but are not limited to cellulitis, abscess, DVT MDM: Patient's infectious symptoms have not stabilized and the patient is at risk of rapid decompensation. The patient will be admitted for careful hydration, antibiotic therapy, and infectious source control. SEVERE SEPSIS CRITERIA: Infectious source: rle cellulitis End organ damage indicated by: [Lactate > 2.0 mmol/L SEPSIS MANAGEMENT Time of recognition of severe sepsis: 16:30 hr 3 HOUR BUNDLE Blood cultures x 2 before broad-spectrum antibiotics: [Yes] 30 ml/kg NS bolus [Completed] Initial lactate []2 Repeat lactate Pending SEPTIC SHOCK ASSESSMENT: [No] lactic acid > 4.0 [No] Persistent hypotension (SBP < 90 or 40 mmHg drop, MAP < 65) despite 30 mL/kg IV fluid bolus CRITICAL CARE Critical care time [35] minutes Emergent fluid management while maintaining close respiratory support. Provision of immediate and broad-spectrum antibiotic therapy. Simultaneous assessment for possible sources in order to direct targeted therapy. Consid eration for invasive and chemical support to prevent cardiopulmonary collapse. Critical care time is independent of procedures performed. Departure Diagnosis: Primary Impression: Severe sepsis Additional Impressions: Cellulitis of right leg PAD (peripheral artery disease) Anemia Abnormal LFTs Condition: Stable Comments I discussed the findings with the patient. I notified the patient with Dr. Astudillo at 7 PM via [email or web address] , who was made aware of the lab, the treatment, the patient condition. The patient is admitted to [facility] Disclaimer: Inadvertent spelling and grammatical errors are likely due to EHR/dictation software use and do not reflect on the overall quality of patient care. Also, please note that the electronic time recorded on this note does not necessarily reflect the actual time of the patient encounter. FLACO ESPINAL MD Mar 07, 2019 20:33
[2019-03-07] MEDS ORDERED: VANCOMYCIN IV PER PHARMACY XX SCH (21:30)
[2019-03-07] MEDS ORDERED: SOD CHLORIDE 0.9% 100 ML ONE (23:05)
[2019-03-07] MEDS ORDERED: IOHEXOL 300MG/ML 150 ML BTL ONE (23:05)
[2019-03-08] MEDS ORDERED: PIPER-TAZO 3.375 GM IV (PMX) 100 ML IVPB SCH
[2019-03-08] MEDS: HYDROmorphONE 0.5 MG/0.5 ML SYG IV PRN ×5 (00:11→23:35)
[2019-03-08 00:27] VITALS: BP 109/56; PULSE 72; RESP 18
[2019-03-08 01:39] VITALS: Ht 165.1 cm; Wt 67.8 kg
[2019-03-08] MEDS: MEROPENEM 1 GM/50ML(PMX) 50 ML IVPB SCH ×3 (02:02→20:20)
[2019-03-08 04:16] VITALS: BP 95/55; PULSE 82; RESP 18
[2019-03-08] MEDS ORDERED: VANCOMYCIN 750 MG (PMX) 250 ML IVPB SCH (06:00)
[2019-03-08 07:39] VITALS: BP 107/63; PULSE 81; RESP 16
[2019-03-08] MEDS: CHOLECALCIFEROL 2,000 UNIT CAP PO SCH (08:39)
[2019-03-08] MEDS: ASCORBIC ACID 500 MG TAB PO SCH (08:39)
[2019-03-08] MEDS: SENNA TAB PO SCH ×2 (08:39→20:20)
[2019-03-08] MEDS: MULTIVITAMINS/MINERALS TAB PO SCH (08:39)
[2019-03-08] MEDS: LACTOBACILLUS RHAMNOSUS CAP PO SCH ×2 (08:39→20:20)
[2019-03-08] MEDS: FAMOTIDINE 20 MG TAB PO SCH (08:39)
[2019-03-08] MEDS: ENOXAPARIN 40 MG/0.4 ML SYG SC SCH (08:45)
[2019-03-08 11:22] VITALS: BP 103/63; PULSE 83
[2019-03-08] MEDS: ZINC SULFATE 220 MG CAP PO SCH (12:16)
--- NOTE | 2019-03-08 12:26 | CONS ---
DATE OF ADMISSION: 03/07/2019 DATE OF CONSULTATION: 03/08/2019 TYPE OF CONSULTATION: Infectious disease. REASON FOR CONSULTATION: Antibiotic management. HISTORY OF PRESENT ILLNESS: Cathy Villatoro is a 38-year-old female who comes in complaining of right leg pain of 3 days. She has a history of surgery in October for a DVT. She presents to the [facility] with acute on chronic right lower extremity wounds since she had surgery 11/05/2018 for co mplicated DVT with compartmental syndrome. She had a fasciotomy and thrombectomy. She has previousl y been admitted for cellulitis. She complains of worsening pain over the last 3 days with increased wound discharge, fevers, chills, neck pain. She denies fever, chills, neck pain or chest pain. She last took antibiotics for right leg cellulitis a month ago. PAST SURGICAL HISTORY: She had 2 C-sections and appendectomy, right ovarian cyst. Her surgeries inc lude appendectomy, , ovarian cyst, fasciotomy, right leg DVT removal. She has a history of TIA in the past and otherwise her history is clear. She had an ASD. SOCIAL HISTORY: She does not smoke, drink or abuse drugs. ALLERGIES: NONE TO PENICILLIN, SULFA OR FOODS. MEDICATIONS: Per chart. REVIEW OF SYSTEMS: Noncontributory. PHYSICAL EXAMINATION: GENERAL: She is a well-developed, well-nourished female in no acute distress. VITAL SIGNS: Stable. Pulse is up to 112. She is afebrile. SKIN: Without generalized rash. HEENT: Within normal limits. NECK: Supple. LYMPH NODES: None palpable. CHEST: Decreased breath sounds at the bases. HEART: Without murmur or gallop. ABDOMEN: Soft, nontender, without organosplenomegaly or masses. EXTREMITIES: Right lower extremity with an infected open wound medially and laterally with discharge . RECTAL AND GENITAL: Deferred. NEUROLOGIC: No focal neurological abnormality. ANCILLARY LABORATORY DATA: White count is 9.6 with 68% neutrophils, H and H of 11.3 and 35.3 and long telet count 441,000. BUN and creatinine 21/0.54. Her urine is negative for leukocytes and nitrites. Patient was begun on vancomycin and Zosyn. Right lower extremity arterial ultrasound shows antegra de flow is noted in all visualized arteries of the lower extremity. Biphasic waveforms throughout th e right lower extremity, elevated velocity in the right common femoral artery possibly indicating a 3 0 to 49% stenosis and further characterization of the arterial vasculature and a CT angiogram is rula mmended. An ultrasound of the lower extremity shows no sonographic evidence for deep vein thrombosis , previous venous is resolved. Chest x-ray, hypoinflated lungs with scattered subsegmental ate lectasis in both lungs. The patient was felt to have acute severe sepsis, acute on chronic right low er extremity cellulitis and was started on vancomycin and Zosyn for acute severe sepsis. Her right l eg growing gram-negative rods. Urine mixed gram negative-positive organisms and positive organisms, probably contamination. White count today is 9.3. We will continue her on vancomycin and meropenem. She was switched to meropenem for broader spectrum antibiotic coverage. I will dictate my findings to the hospitalist. Previous wound cultures were positive for Enterobacter cloacae, strep agalactia or group B strep and Corynebacterium JK. Lactic acid was up to 3. A CT scan of the right lower ext remity with IV contrast was ordered to evaluate any underlying fluid collections or abscesses. Dictated By: ALEN GONSALEZ MD, JD/CAIN Conf#: [id number] DID#: [id number] CC: SHYAM WELLS MD;*EndCC*
--- NOTE | 2019-03-08 13:21 | CONS ---
Assessment/Plan Assessment/Plan Assessment/Plan (Daily) Right lower extremity surgical ulcer Right lower extremity abscess Right lower extremity cellulitis PAD DM2 with peripheral neuropathy DM2 well controlled Plan Reviewed CT imaging and can appreciate abscess formation. Reviewed arterial studies and patient would benefit from vascular surgery evaluation. Plan for OR debridement and exploration/evacuation of abscess site. Wound Cultures showing gram neg shantell. Abx per ID recommendations. Continue with betadine 4x4 gauze, kerlix and damari wrap to right lower extremity and offloading. Patient will need staged procedures in order achieve wound closure. Consultation Date/Type/Reason Admit Date/Time Date/Time of Note DATE: 03/08/19 TIME: 13:19 Hx of Present Illness 38 y/o F with hx of hypertension, diabetes type 2, past surgical history of DVT (popliteal) and arterial occlusion (R post tibular artery) to right lower extremity status post thrombectomy, status post 3 part bilateral compartment fasciotomy, course complicated by cellulitis/infection in January of this year requiring home administration of IV antibiotics who presents with complaint of right lower extremity pain over the past 3 days. Patient relates that in October 2018 he had emergent fasciotomy and thrombectomy performed at that time. Since then she has been dealing with surgical wounds. The CT had shown signs of abscess within the anterior and deep posterior compartment. Patient denies fevers, chills, vomiting and denies chest pains or shortness of breath. ROS negative except for HPI Past Medical History Right lower extremity DVT status post 3 compartment fasciotomy of the right calf, Norberto thrombectomy of the [employer] for critical limb ischemia and compartment syndrome, wound VAC, atrial septal defect, iron deficiency anemia, prediabetes Home Meds Active Scripts Tramadol HCl (Tramadol HCl) 50 Mg Tablet, 50 MG PO Q6 PRN for PAIN, #12 TAB Prov:EVE LOZADA MD 02/10/19 Tramadol HCl (Tramadol HCl) 50 Mg Tablet, 50 MG PO Q6 PRN for PAIN, #20 TAB Prov:EMMA TIAN MD 01/29/19 Famotidine* (Pepcid*) 20 Mg Tablet, 20 MG PO DAILY, #30 TAB Prov:JON,ROLO V. CATHOLIC PRIEST 01/26/19 Lactobacillus Rhamnosus GG (Culturelle) 1 Each Capsule, 1 CAP PO BID, #60 CAP Prov:JON,ROLO V. CATHOLIC PRIEST 01/26/19 Mupirocin* (Bactroban*) 2% -22 Gram Oint...g., 1 APPLIC TOP BID, #1 TUB apply to bilateral naresx5 more days Prov:ROLO JON NP 01/26/19 Cholecalciferol (Vitamin D3) (VITAMIN D-3) 2,000 Unit Capsule, 2000 UNIT PO DAILY, #30 CAP Prov:ROLO JON V. CATHOLIC PRIEST 01/26/19 Vancomycin HCl (Vancomycin HCl) 1 Gm Vial, 1 GM IV DAILY for 8 Days, VIAL Prov:ROLO JON V. CATHOLIC PRIEST 01/26/19 Meropenem (Merrem) 1 Gm Vial, 1 GM IV Q12 for 8 Days, VIAL Prov:ROLO JON V. CATHOLIC PRIEST 01/26/19 Rivaroxaban* (Xarelto*) 20 Mg Tablet, 20 MG PO WITH DINNER for 90 Days, TAB Prov:ONEIL VOGEL S. 11/24/18 Hydromorphone Hcl (Dilaudid) 2 Mg Tab, 4 MG PO Q4H PRN for MODERATE PAIN LEVEL 4-6, #30 TAB Prov:ONEIL VOGEL S. 11/24/18 Ascorbic Acid (Vitamin C) 500 Mg Tab, 500 MG PO DAILY, #30 TAB 2 Refills Prov:OENIL VOGEL S. 11/24/18 Multivits,Ca,Minerals/Iron/FA (Thera M Plus Tablet) 1 Each Tablet, 1 TAB PO DAILY, #30 TAB 2 Refills Prov:ONEIL VOGEL S. 11/24/18 Sennosides* (Senna Lax*) 8.6 Mg Tablet, 1 TAB PO BID, #60 TAB 1 Refill Prov:ONEIL VOGEL S. 11/24/18 Medications Current Medications IV Flush (NS 3 ml) 3 ml PER PROTOCOL IV ; Start 03/07/19 at 20:00 Ondansetron HCl (Zofran Inj) 4 mg Q6H PRN IV NAUSEA/VOMITING; Start 03/07/19 at 20:00 Acetaminophen (Tylenol Tab) 650 mg Q6H PRN PO .PAIN 1-3 OR TEMP; Start 03/07/19 at 20:00 Acetaminophen/ Hydrocodone Bitart ([place] (5/325)) 1 tab Q6H PRN PO .MOD PAIN 4- 6; Start 03/07/19 at 20:00 Hydromorphone HCl (Dilaudid) 0.5 mg Q4H PRN IV .SEVERE PAIN 7-10 Last a dministered on 03/08/19at 12:16; Admin Dose 0.5 MG; Start 03/07/19 at 20:00 Docusate Sodium (Colace) 100 mg Q12H PRN PO .CONSTIPATION; Start 03/07/19 at 20:00 Bisacodyl (Dulcolax) 5 mg DAILY PRN PO .CONSTIPATION; Start 03/07/19 at 20:00 Enoxaparin Sodium (Lovenox) 40 mg DAILY SC Last administered on 03/08/19at 08:45; Admin Dose 40 MG; Start 03/08/19 at 09:00 Vancomycin HCl (Vanco Iv Per Pharmacy) VANCOMYCIN PER PHARMACY PER PROTOCOL XX ; Start 03/07/19 at 21:30 Meropenem/Sodium Chloride 50 ml @ 100 mls/hr Q12 IVPB Last administered on 03/08/19 08:39; Admin Dose 100 MLS/HR; Start 03/08/19 at 00:00 Vancomycin/Sodium Chloride 250 ml @ 125 mls/hr Q12H IVPB Last administered on 03/08/19at 05:48; Admin Dose 125 MLS/HR; Start 03/08/19 at 06:00 Ascorbic Acid (Vitamin C) 500 mg DAILY PO Last administered on 03/08/19 08:39; Admin Dose 500 MG; Start 03/08/19 at 09:00 Cholecalciferol (Vitamin D) 2,000 unit DAILY PO Last administered on 03/08/19 08:39; Admin Dose 2,000 UNIT; Start 03/08/19 at 09:00 Famotidine (Pepcid) 20 mg DAILY PO Last administered on 03/08/19 08:39; Admin Dose 20 MG; Start 03/08/19 at 09:00 Lactobacillus Acidophilus/ Rhamnosus (Culturelle) 1 cap BID PO Last admin istered on 03/08/19 08:39; Admin Dose 1 CAP; Start 03/08/19 at 09:00 Multivitamins/ Minerals (Theragran-M) 1 tab DAILY PO Last administered on 03/08/19at 08:39; Admin Dose 1 TAB; Start 03/08/19 at 09:00 Senna (Senokot) 1 tab BID PO Last administered on 03/08/19at 08:39; Admin Dose 1 TAB; Start 03/08/19 at 09:00 Zinc Sulfate (Zinc Sulfate) 220 mg DAILY PO Last administered on 03/08/19at 12:16; Admin Dose 220 MG; Start 03/08/19 at 11:00 Allergies: Coded Allergies: No Known Allergy (Unverified , 01/29/19) Past Surgical History Three compartment fasciotomy right calf, Norberto thrombectomy right posterior tibial artery, s/p wound [facility] Social History Alcohol Use: none Smoking Status: Never smoker Drug Use: none Exam/Review of Systems Exam Vitals Vital Signs Date Temp Pulse Resp B/P (MAP) Pulse Ox O2 O2 Flow FiO2 Time Delivery Rate 03/08/19 98.5 83 103/63 98 Room Air 11:22 (76) 03/08/19 16 07:39 Intake and Output 03/07/19 03/07/19 03/08/19 1515:00 23:00 07:00 IntakeIntake Total 750 ml BalanceBalance 750 ml Exam DP/PT pulses palpable Pedal hairs presents b/l lower extremity with skin temp gradient warm to warm from proximal leg to distal feet Absent protective sensations to the midfoot and distal digits Right lower leg with fasciotomy incision sites 30cm x 4cm x 0.2cm on the medial aspect with granular wound base, no proximal streaking, no purulence Right lower leg with fasciotomy incision sites 31cm x 2.5cm x 0.2cm on the lateral aspect with granular wound base, no proximal streaking, no purulence There is an aspect to the distal aspect of the lateral wound which probes deep but not to bone approximately 2.5cm. Mild serosanguinous drainage noted from the probing site Muscle strength 4/5 to the right lower extremity with plantar flexion, dorsiflexion, inversion, eversion. CT right lower extremity IMPRESSION: 1. Abscess within the anterior compartment musculature of the lower leg measuring approximately 3.3 x 1.2 x 14.0 cm. 2. Abscess within the deep posterior compartment musculature of the lower leg measuring approximately 1.7 x 0.8 x 6.4 cm. 3. Right groin and right pelvic adenopathy is presumably reactive and new from November 05, 2018. Consider follow-up imaging as warranted to assess stability. Non invasive arterial studies IMPRESSION: Elevated velocity in the right common femoral artery, possibly indicating a 30 - 49% stenosis. If further characterization of the arterial vasculature is needed, CTA is recommended. Venous ultrasound IMPRESSION: No sonographic evidence for deep venous thrombosis. The previously seen venous thrombus has resolved. Results Result Diagram: 03/08/19 0535 03/08/19 0535 Results 24hrs Laboratory Tests Test 03/07/19 15:49 03/07/19 15:56 03/07/19 16:56 03/07/19 19:21 White Blood Count 9.6 # Red Blood Count 4.22 # Hemoglobin 11.3 #L Hematocrit 35.3 #L Mean Corpuscular 83.6 Volume Mean Corpuscular 26.8 L Hemoglobin Mean Corpuscular 32.0 Hemoglobin Concent Red Cell 17.2 H Distribution Width Platelet Count 441 #H Mean Platelet Volume 10.1 Immature 0.300 Granulocytes % Neutrophils % 67.7 Lymphocytes % 21.6 Monocytes % 5.9 Eosinophils % 2.9 Basophils % 1.6 Nucleated Red Blood 0.0 Cells % Immature 0.030 Granulocytes # Neutrophils # 6.5 Lymphocytes # 2.1 Monocytes # 0.6 Eosinophils # 0.3 Basophils # 0.2 H Nucleated Red Blood 0.0 Cells # Erythrocyte 80 H Sedimentation Rate Prothrombin Time 15.7 H Prothrombin Time 1.2 Ratio INR International 1.24 Normalized Ratio Activated 34.6 Partial Thromboplast Time Urine Color STRAW Urine Clarity CLEAR Urine pH 7.0 Urine Specific 1.003 [place] Urine Ketones NEGATIVE Urine Nitrite NEGATIVE Urine Bilirubin NEGATIVE Urine Urobilinogen NEGATIVE Urine Leukocyte NEGATIVE Esterase Urine Hemoglobin NEGATIVE Urine Glucose NEGATIVE Urine Total Protein NEGATIVE Sodium Level 140 Potassium Level 3.5 Chloride Level 105 Carbon Dioxide Level 25 Anion Gap 10 Blood Urea Nitrogen 2 L Creatinine 0.54 Est Glomerular > 60 Filtrat Rate mL/min Glucose Level 151 Calcium Level 9.2 Total Bilirubin 0.3 Direct Bilirubin 0.00 Indirect Bilirubin 0.3 Aspartate Amino 91 H Transf (AST/SGOT) Alanine 61 Aminotransferase (AL T/SGPT) Alkaline Phosphatase 155 H Troponin I < 0.012 C-Reactive Protein 1.9 H Total Protein 8.3 H Albumin 4.1 Globulin 4.20 H Albumin/Globulin 0.97 Ratio POC Venous Lactate 2.0 Lactic Acid Level 1.7 3.0 *H Test 03/07/19 19:33 03/07/19 23:14 03/08/19 05:35 Urine Test NEGATIVE Lactic Acid Level 1.2 1.4 White Blood Count 9.7 Red Blood Count 4.02 L Hemoglobin 10.8 L Hematocrit 34.4 L Mean Corpuscular 85.6 Volume Mean Corpuscular 26.9 L Hemoglobin Mean Corpuscular 31.4 L Hemoglobin Concent Red Cell 17.4 H Distribution Width Platelet Count 402 Mean Platelet Volume 10.3 Immature 0.400 Granulocytes % Neutrophils % 68.7 Lymphocytes % 18.1 Monocytes % 6.5 Eosinophils % 5.0 Basophils % 1.3 Nucleated Red Blood 0.0 Cells % Immature 0.040 H Granulocytes # Neutrophils # 6.7 Lymphocytes # 1.8 Monocytes # 0.6 Eosinophils # 0.5 Basophils # 0.1 Nucleated Red Blood 0.0 Cells # Erythrocyte 76 H Sedimentation Rate Sodium Level 140 Potassium Level 3.9 Chloride Level 107 Carbon Dioxide Level 27 Anion Gap 6 Blood Urea Nitrogen 3 L Creatinine 0.63 Est Glomerular > 60 Filtrat Rate mL/min Glucose Level 97 # Calcium Level 8.9 Total Bilirubin 0.3 Direct Bilirubin 0.00 Indirect Bilirubin 0.3 Aspartate Amino 54 H Transf (AST/SGOT) Alanine 51 Aminotransferase (AL T/SGPT) Alkaline Phosphatase 137 H C-Reactive Protein 2.0 H Total Protein 7.1 # Albumin 3.4 Globulin 3.70 H Albumin/Globulin 0.91 Ratio Prealbumin 13.2 L Procalcitonin 0.03 Medications Medication Current Medications IV Flush (NS 3 ml) 3 ml PER PROTOCOL IV ; Start 03/07/19 at 20:00 Ondansetron HCl (Zofran Inj) 4 mg Q6H PRN IV NAUSEA/VOMITING; Start 03/07/19 at 20:00 Acetaminophen (Tylenol Tab) 650 mg Q6H PRN PO .PAIN 1-3 OR TEMP; Start 03/07/19 at 20:00 Acetaminophen/ Hydrocodone Bitart ([place] (5/325)) 1 tab Q6H PRN PO .MOD PAIN 4- 6; Start 03/07/19 at 20:00 Hydromorphone HCl (Dilaudid) 0.5 mg Q4H PRN IV .SEVERE PAIN 7-10 Last administered on 03/08/19 12:16; Admin Dose 0.5 MG; Start 03/07/19 at 20:00 Docusate Sodium (Colace) 100 mg Q12H PRN PO .CONSTIPATION; Start 03/07/19 at 20:00 Bisacodyl (Dulcolax) 5 mg DAILY PRN PO .CONSTIPATION; Start 03/07/19 at 20:00 Enoxaparin Sodium (Lovenox) 40 mg DAILY SC Last administered on 03/08/19 08:45; Admin Dose 40 MG; Start 03/08/19 at 09:00 Vancomycin HCl (Vanco Iv Per Pharmacy) VANCOMYCIN PER PHARMACY PER PROTOCOL XX ; Start 03/07/19 at 21:30 Meropenem/Sodium Chloride 50 ml @ 100 mls/hr Q12 IVPB Last administered on 03/08/19 08:39; Admin Dose 100 MLS/HR; Start 03/08/19 at 00:00 Vancomycin/Sodium Chloride 250 ml @ 125 mls/hr Q12H IVPB Last administered on 03/08/19 05:48; Admin Dose 125 MLS/HR; Start 03/08/19 at 06:00 Ascorbic Acid (Vitamin C) 500 mg DAILY PO Last administered on 03/08/19 08:39; Admin Dose 500 MG; Start 03/08/19 at 09:00 Cholecalciferol (Vitamin D) 2,000 unit DAILY PO Last administered on 03/08/19 08:39; Admin Dose 2,000 UNIT; Start 03/08/19 at 09:00 Famotidine (Pepcid) 20 mg DAILY PO Last administered on 03/08/19 08:39; Admin Dose 20 MG; Start 03/08/19 at 09:00 Lactobacillus Acidophilus/ Rhamnosus (Culturelle) 1 cap BID PO Last administered on 03/08/19 08:39; Admin Dose 1 CAP; Start 03/08/19 at 09:00 Multivitamins/ Minerals (Theragran-M) 1 tab DAILY PO Last administered on 03/08/19 08:39; Admin Dose 1 TAB; Start 03/08/19 at 09:00 Senna (Senokot) 1 tab BID PO Last administered on 03/08/19 08:39; Admin Dose 1 TAB; Start 03/08/19 at 09:00 Zinc Sulfate (Zinc Sulfate) 220 mg DAILY PO Last administered on 03/08/19at 12:16; Admin Dose 220 MG; Start 03/08/19 at 11:00 SUMMER BALDERRAMA DPM Mar 08, 2019 13:21
[2019-03-08 15:51] VITALS: BP 100/56; PULSE 78; RESP 18
--- NOTE | 2019-03-08 15:59 | PN ---
Date/Time of Note Date/Time of Note DATE: 03/08/19 TIME: 15:53 Assessment/Plan VTE Prophylaxis Risk score (from Ns)>0 risk: 5 [place] [facility] [place] Pharmacological prophylaxis: NA/contraindicated Pharm contraindication: surgical contra Lines/Catheters [facility]from [facility] Intermitent Antibiotics Urinary Cath still in place: No Assessment/Plan Assessment/Plan 38 yo woman with history of R leg DVT s/p fasciotomy and thrombectomy presents now with new abscesses and infection of that leg. 1. Recurrent right lower extremity postop infection: - Patient has a history of Three compartment fasciotomy right calf, Norberto thrombectomy right posterior tibial artery, s/p wound wac. Previous wound cultures were positive for Enterobacter cloacae, strep agalactiae group B, Corynebacterium jk. - Currently on vanco and meropenem. ID following. - CT shows two large abscesses. - Podiatry consulted. Plan for operative I&D and debridement. 2. Right lower extremity deep venous thrombosis. - Was initiated on Xarelto in October 2018, she is still taking it. Last dose just prior to admission. - Will hold for now, plan for surgical I&D and debridement. - After surgery will start therapeutic anticoagulation when okay by podiatry. 3. History of atrial septal defect. - This was seen on echocardiogram with bubble study performed in 09/2018. P reviously cardiology evaluated the patient and did not recommend shunt closure. 4. History of iron-deficiency anemia. Hemoglobin stable. Continue to monitor for now. 5. History of prediabetes, last A1c was 5.6. Diabetic diet 6. DVT and GI prophylaxis: SCDs, no GI prophylaxis Result Diagram: 03/08/19 0535 03/08/19 0535 Subjective 24 Hr Interval Summary Free Text/Dictation No acute overnight events. Pain adequately controlled. Exam/Review of Systems Exam Vitals Vital Signs Date Temp Pulse Resp B/P (MAP) Pulse Ox O2 O2 Flow FiO2 Time Delivery Rate 03/08/19 98.8 78 18 100/56 98 Room Air 15:51 (71) Intake and Output 03/07/19 03/07/19 03/08/19 1515:00 23:00 07:00 IntakeIntake Total 750 ml BalanceBalance 750 ml Exam General: Patient is well-developed well-nourished The patient is alert oriented x3 lying comfortably in bed. HEENT: Atraumatic, normocephalic. The pupils are equal, round and reactive. Extraocular motor are intact Neck: Supple with full range of motion. No rigidity or meningismus Chest: Nontender Lungs: Clear to auscultation bilaterally no crackles rales or wheezing Heart: Normal S1-S2, Regular rhythm and rate. No murmur, S3, or S4 Abdomen: Soft , nontender, nondistended , bowel sounds are present. No guarding no rebound tenderness , No masses or organomegaly. No costovertebral temporal angle mass Extremities: Right lower extremity: Fasciotomy scars present, dressings were changed and are currently clean dry and intact. Patient's pulses are present, she is able to wiggle her toes, skin is warm to touch. Results Results 24hrs Laboratory Tests Test 03/07/19 15:56 03/07/19 16:56 03/07/19 19:21 03/07/19 19:33 POC Venous Lactate 2.0 Lactic Acid Level 1.7 3.0 *H Urine Test NEGATIVE Test 03/07/19 23:14 03/08/19 05:35 Lactic Acid Level 1.2 1.4 White Blood Count 9.7 Red Blood Count 4.02 L Hemoglobin 10.8 L Hematocrit 34.4 L Mean Corpuscular 85.6 Volume Mean Corpuscular 26.9 L Hemoglobin Mean Corpuscular 31.4 L Hemoglobin Concent Red Cell 17.4 H Distribution Width Platelet Count 402 Mean Platelet Volume 10.3 Immature 0.400 Granulocytes % Neutrophils % 68.7 Lymphocytes % 18.1 Monocytes % 6.5 Eosinophils % 5.0 Basophils % 1.3 Nucleated Red Blood 0.0 Cells % Immature 0.040 H Granulocytes # Neutrophils # 6.7 Lymphocytes # 1.8 Monocytes # 0.6 Eosinophils # 0.5 Basophils # 0.1 Nucleated Red Blood 0.0 Cells # Erythrocyte 76 H Sedimentation Rate Sodium Level 140 Potassium Level 3.9 Chloride Level 107 Carbon Dioxide Level 27 Anion Gap 6 Blood Urea Nitrogen 3 L Creatinine 0.63 Est Glomerular > 60 Filtrat Rate mL/min Glucose Level 97 # Calcium Level 8.9 Total Bilirubin 0.3 Direct Bilirubin 0.00 Indirect Bilirubin 0.3 Aspartate Amino 54 H Transf (AST/SGOT) Alanine 51 Aminotransferase (AL T/SGPT) Alkaline Phosphatase 137 H C-Reactive Protein 2.0 H Total Protein 7.1 # Albumin 3.4 Globulin 3.70 H Albumin/Globulin 0.91 Ratio Prealbumin 13.2 L Procalcitonin 0.03 Medications Medication Current Medications IV Flush (NS 3 ml) 3 ml PER PROTOCOL IV ; Start 03/07/19 at 20:00 Ondansetron HCl (Zofran Inj) 4 mg Q6H PRN IV NAUSEA/VOMITING; Start 03/07/19 at 20:00 Acetaminophen (Tylenol Tab) 650 mg Q6H PRN PO .PAIN 1-3 OR TEMP; Start 03/07/19 at 20:00 Acetaminophen/ Hydrocodone Bitart ([place] (5/325)) 1 tab Q6H PRN PO .MOD PAIN 4- 6; Start 03/07/19 at 20:00 Hydromorphone HCl (Dilaudid) 0.5 mg Q4H PRN IV .SEVERE PAIN 7-10 Last administered on 03/08/19at 12:16; Admin Dose 0.5 MG; Start 03/07/19 at 20:00 Docusate Sodium (Colace) 100 mg Q12H PRN PO .CONSTIPATION; Start 03/07/19 at 20:00 Bisacodyl (Dulcolax) 5 mg DAILY PRN PO .CONSTIPATION; Start 03/07/19 at 20:00 Enoxaparin Sodium (Lovenox) 40 mg DAILY SC Last administered on 03/08/19at 08:45; Admin Dose 40 MG; Start 03/08/19 at 09:00 Vancomycin HCl (Vanco Iv Per Pharmacy) VANCOMYCIN PER PHARMACY PER PROTOCOL XX ; Start 03/07/19 at 21:30 Meropenem/Sodium Chloride 50 ml @ 100 mls/hr Q12 IVPB Last administered on 03/08/19at 08:39; Admin Dose 100 MLS/HR; Start 03/08/19 at 00:00 Vancomycin/Sodium Chloride 250 ml @ 125 mls/hr Q12H IVPB Last administered on 03/08/19at 05:48; Admin Dose 125 MLS/HR; Start 03/08/19 at 06:00 Ascorbic Acid (Vitamin C) 500 mg DAILY PO Last administered on 03/08/19at 08:39; Admin Dose 500 MG; Start 03/08/19 at 09:00 Cholecalciferol (Vitamin D) 2,000 unit DAILY PO Last administered on 03/08/19 08:39; Admin Dose 2,000 UNIT; Start 03/08/19 at 09:00 Famotidine (Pepcid) 20 mg DAILY PO Last administered on 03/08/19 08:39; Admin Dose 20 MG; Start 03/08/19 at 09:00 Lactobacillus Acidophilus/ Rhamnosus (Culturelle) 1 cap BID PO Last administered on 03/08/19 08:39; Admin Dose 1 CAP; Start 03/08/19 at 09:00 Multivitamins/ Minerals (Theragran-M) 1 tab DAILY PO Last administered on 08:39; Admin Dose 1 TAB; Start 03/08/19 at 09:00 Senna (Senokot) 1 tab BID PO Last administered on 03/08/19 08:39; Admin Dose 1 TAB; Start 03/08/19 at 09:00 Zinc Sulfate (Zinc Sulfate) 220 mg DAILY PO Last administered on 03/08/19at 12:16; Admin Dose 220 MG; Start 03/08/19 at 11:00 JUVE SOLIMAN MD Mar 08, 2019 15:59
[2019-03-08] MEDS: VANCOMYCIN 500 MG (PMX) 100 ML IVPB SCH ×2 (16:33→23:41)
[2019-03-08] MEDS: HYDROCODONE/APAP (5/325) TAB PO PRN (18:38)
[2019-03-08 20:09] VITALS: BP 99/56; PULSE 85; RESP 18
[2019-03-08] MEDS: ONDANSETRON 4 MG INJ IV PRN (23:46)
[2019-03-09] VITALS (16 sets, daily range): BP systolic 100–115; BP diastolic 52–72; PULSE 68–84; RESP 15–23
[2019-03-09] MEDS: HYDROmorphONE 0.5 MG/0.5 ML SYG IV PRN ×3 (05:36→14:10)
[2019-03-09] MEDS: CHOLECALCIFEROL 2,000 UNIT CAP PO SCH (09:00)
[2019-03-09] MEDS: ENOXAPARIN 40 MG/0.4 ML SYG SC SCH (09:00)
[2019-03-09] MEDS: MULTIVITAMINS/MINERALS TAB PO SCH (09:00)
[2019-03-09] MEDS: LACTOBACILLUS RHAMNOSUS CAP PO SCH ×2 (09:00→22:01)
[2019-03-09] MEDS: FAMOTIDINE 20 MG TAB PO SCH (09:00)
[2019-03-09] MEDS: SENNA TAB PO SCH ×2 (09:00→21:00)
[2019-03-09] MEDS: ZINC SULFATE 220 MG CAP PO SCH (09:00)
[2019-03-09] MEDS: ASCORBIC ACID 500 MG TAB PO SCH (09:00)
[2019-03-09] MEDS: VANCOMYCIN 500 MG (PMX) 100 ML IVPB SCH (09:12)
[2019-03-09] MEDS: MEROPENEM 1 GM/50ML(PMX) 50 ML IVPB SCH (10:21)
--- NOTE | 2019-03-09 11:51 | PN ---
Date/Time of Note Date/Time of Note DATE: 03/09/19 TIME: 11:49 Assessment/Plan VTE Prophylaxis Risk score (from Nsg)>0 risk: 5 SCD applied (from Ns): Yes Pharmacological prophylaxis: LMWH Lines/Catheters IV C[facility]ter [facility]from [facility] Saline Lock Urinary Cath still in place: No Assessment/Plan Assessment/Plan 38 yo woman with history of R leg DVT s/p fasciotomy and thrombectomy presents now with new abscesses and infection of that leg. 1. Recurrent right lower extremity postop infection: - Patient has a history of Three compartment fasciotomy right calf, Norberto thrombectomy right posterior tibial artery, s/p wound wac. Previous wound cultures were positive for Enterobacter cloacae, strep agalactiae group B, Corynebacterium jk. - Currently on vanco and meropenem. ID following. - CT shows two large abscesses. - Podiatry consulted. Plan for operative I&D and debridement. 2. Right lower extremity deep venous thrombosis. - Was initiated on Xarelto in October 2018, she is still taking it. Last dose just prior to admission. - Will hold for now, plan for surgical I&D and debridement. - After surgery will start therapeutic anticoagulation when okay by podiatry. 3. History of atrial septal defect. - This was seen on echocardiogram with bubble study performed in 09/2018. Previously cardiology evaluated the patient and did not recommend shunt closure. 4. History of iron-deficiency anemia. Hemoglobin stable. Continue to monitor for now. 5. History of prediabetes, last A1c was 5.6. Diabetic diet 6. DVT and GI prophylaxis: SCDs, no GI prophylaxis Result Diagram: 03/09/19 0525 03/09/19 0525 Subjective 24 Hr Interval Summary Free Text/Dictation No acute overnight events. Scheduled for OR later tonight (around 18:30) Exam/Review of Systems Exam Vitals Vital Signs Date Temp Pulse Resp B/P (MAP) Pulse Ox O2 O2 Flow FiO2 Time Delivery Rate 03/09/19 97.8 79 20 112/58 98 Room Air 07:45 (76) Intake and Output 03/08/19 03/08/19 03/09/19 1515:00 23:00 07:00 IntakeIntake Total 540 ml 990 ml 900 ml OutputOutput Total 1800 ml BalanceBalance 540 ml -810 ml 900 ml Exam General: Patient is well-developed well-nourished The patient is alert oriented x3 lying comfortably in bed. HEENT: Atraumatic, normocephalic. The pupils are equal, round and reactive. Extraocular motor are intact Neck: Supple with full range of motion. No rigidity or meningismus Chest: Nontender Lungs: Clear to auscultation bilaterally no crackles rales or wheezing Heart: Normal S1-S2, Regular rhythm and rate. No murmur, S3, or S4 Abdomen: Soft , nontender, nondistended , bowel sounds are present. No guarding no rebound tenderness , No masses or organomegaly. No costovertebral temporal angle mass Extremities: Right lower extremity: Fasciotomy scars present, dressings were changed and are currently clean dry and intact. Patient's pulses are present, she is able to wiggle her toes, skin is warm to touch. Results Results 24hrs Laboratory Tests Test 03/09/19 05:25 White Blood Count 8.4 Red Blood Count 4.18 L Hemoglobin 11.2 L Hematocrit 34.9 L Mean Corpuscular Volume 83.5 Mean Corpuscular Hemoglobin 26.8 L Mean Corpuscular Hemoglobin Concent 32.1 Red Cell Distribution Width 17.2 H Platelet Count 400 Mean Platelet Volume 10.5 H Immature Granulocytes % 0.500 H Neutrophils % 63.7 Lymphocytes % 18.0 Monocytes % 7.1 Eosinophils % 9.3 H Basophils % 1.4 Nucleated Red Blood Cells % 0.0 Immature Granulocytes # 0.040 H Neutrophils # 5.3 Lymphocytes # 1.5 Monocytes # 0.6 Eosinophils # 0.8 H Basophils # 0.1 Nucleated Red Blood Cells # 0.0 Sodium Level 140 Potassium Level 3.7 Chloride Level 103 Carbon Dioxide Level 30 Anion Gap 7 Blood Urea Nitrogen 8 Creatinine 0.71 Est Glomerular Filtrat Rate mL/min > 60 Glucose Level 109 Calcium Level 9.3 Total Bilirubin 0.3 Direct Bilirubin 0.00 Indirect Bilirubin 0.3 Aspartate Amino Transf (AST/SGOT) 43 Alanine Aminotransferase (ALT/SGPT) 43 Alkaline Phosphatase 142 H Total Protein 7.5 Albumin 3.7 Globulin 3.80 H Albumin/Globulin Ratio 0.97 Vancomycin Level Trough 11.1 Medications Medication Current Medications IV Flush (NS 3 ml) 3 ml PER PROTOCOL IV ; Start 03/07/19 at 20:00 Ondansetron HCl (Zofran Inj) 4 mg Q6H PRN IV NAUSEA/VOMITING Last administered on 03/08/19 23:46; Admin Dose 4 MG; Start 03/07/19 at 20:00 Acetaminophen (Tylenol Tab) 650 mg Q6H PRN PO .PAIN 1-3 OR TEMP; Start 03/07/19 at 20:00 Acetaminophen/ Hydrocodone Bitart ([place] (5/325)) 1 tab Q6H PRN PO .MOD PAIN 4- 6 Last administered on 03/08/19at 18:38; Admin Dose 1 TAB; Start 03/07/19 at 20:00 Hydromorphone HCl (Dilaudid) 0.5 mg Q4H PRN IV .SEVERE PAIN 7-10 Last administered on 03/09/19 09:21; Admin Dose 0.5 MG; Start 03/07/19 at 20:00 Docusate Sodium (Colace) 100 mg Q12H PRN PO .CONSTIPATION; Start 03/07/19 at 20:00 Bisacodyl (Dulcolax) 5 mg DAILY PRN PO .CONSTIPATION; Start 03/07/19 at 20:00 Enoxaparin Sodium (Lovenox) 40 mg DAILY SC Last administered on 03/08/19at 0 8:45; Admin Dose 40 MG; Start 03/08/19 at 09:00 Vancomycin HCl (Vanco Iv Per Pharmacy) VANCOMYCIN PER PHARMACY PER PROTOCOL XX ; Start 03/07/19 at 21:30 Meropenem/Sodium Chloride 50 ml @ 100 mls/hr Q12 IVPB Last administered on 03/09/19at 10:21; Admin Dose 100 MLS/HR; Start 03/08/19 at 00:00 Ascorbic Acid (Vitamin C) 500 mg DAILY PO Last administered on 03/08/19at 08:39; Admin Dose 500 MG; Start 03/08/19 at 09:00 Cholecalciferol (Vitamin D) 2,000 unit DAILY PO Last administered on 03/08/19at 08:39; Admin Dose 2,000 UNIT; Start 03/08/19 at 09:00 Famotidine (Pepcid) 20 mg DAILY PO Last administered on 03/08/19at 08:39; Admin Dose 20 MG; Start 03/08/19 at 09:00 Lactobacillus Acidophilus/ Rhamnosus (Culturelle) 1 cap BID PO Last administered on 03/08/19 20:20; Admin Dose 1 CAP; Start 03/08/19 at 09:00 Multivitamins/ Minerals (Theragran-M) 1 tab DAILY PO Last administered on 03/08/19 08:39; Admin Dose 1 TAB; Start 03/08/19 at 09:00 Senna (Senokot) 1 tab BID PO Last administered on 03/08/19 20:20; Admin Dose 1 TAB; Start 03/08/19 at 09:00 Zinc Sulfate (Zinc Sulfate) 220 mg DAILY PO Last administered on 03/08/19 12:16; Admin Dose 220 MG; Start 03/08/19 at 11:00 Vancomycin HCl 100 ml @ 100 mls/hr Q8H IVPB Last administered on 03/09/19 09:12; Admin Dose 100 MLS/HR; Start 03/08/19 at 15:00 JUVE SOLIMAN MD Mar 09, 2019 11:51
--- NOTE | 2019-03-09 16:24 | HPN ---
Date/Time of Note Date/Time of Note DATE: 03/09/19 TIME: 16:24 Interval H&P Admission Note Pt. seen H&P reviewed: No system changes SUMMER BALDERRAMA DPM Mar 09, 2019 16:24
[2019-03-09] MEDS ORDERED: POLYMYXIN B 500000 UNIT INJ ONE (18:25)
[2019-03-09] MEDS ORDERED: POLYMYXIN/BACITRACIN 1L IRRIG ONE (18:25)
[2019-03-09] MEDS ORDERED: LIDOCAINE 1% (MPF) 30 ML INJ ONE (18:25)
[2019-03-09] MEDS ORDERED: BUPIVACAINE 0.25% (MPF) 30 ML INJ ONE (18:25)
--- NOTE | 2019-03-09 18:26 | PREAC ---
Date/Time of Note Date/Time of Note DATE: 03/09/19 TIME: 18:23 Anesthesia Eval and Record Evaluation Time Pre-Procedure Interview DATE: 03/09/19 TIME: 18:23 Age 38 Sex female NPO: 8 hrs Preoperative diagnosis foot infection Planned procedure I&D Past Medical History Past Medical History: Includes Endo: Diabetes Heme: Anemia, Other (DVT ) Surgery & Anesthesia Issues No known issue Meds Anticoagulation: No Beta Alice within 24 hr: No Reason Beta Alice not given: Pt. not on B-Alice Active Scripts Tramadol HCl (Tramadol HCl) 50 Mg Tablet, 50 MG PO Q6 PRN for PAIN, #12 TAB Prov:EVE LOZADA MD 02/10/19 Tramadol HCl (Tramadol HCl) 50 Mg Tablet, 50 MG PO Q6 PRN for PAIN, #20 TAB Prov:EMMA TIAN MD 01/29/19 Famotidine* (Pepcid*) 20 Mg Tablet, 20 MG PO DAILY, #30 TAB Prov:JON,ROLO V. DISASTER RESPONSE DIRECTOR 01/26/19 Lactobacillus Rhamnosus GG (Culturelle) 1 Each Capsule, 1 CAP PO BID, #60 CAP Prov:JON,ROLO V. DISASTER RESPONSE DIRECTOR 01/26/19 Mupirocin* (Bactroban*) 2% -22 Gram Oint...g., 1 APPLIC TOP BID, #1 TUB apply to bilateral naresx5 more days Prov:JON,ROLO V. DISASTER RESPONSE DIRECTOR 01/26/19 Cholecalciferol (Vitamin D3) (VITAMIN D-3) 2,000 Unit Capsule, 2000 UNIT PO DAILY, #30 CAP Prov:JON,ROLO V. DISASTER RESPONSE DIRECTOR 01/26/19 Vancomycin HCl (Vancomycin HCl) 1 Gm Vial, 1 GM IV DAILY for 8 Days, VIAL Prov:JON,ROLO V. DISASTER RESPONSE DIRECTOR 01/26/19 Meropenem (Merrem) 1 Gm Vial, 1 GM IV Q12 for 8 Days, VIAL Prov:JON,ROLO V. DISASTER RESPONSE DIRECTOR 01/26/19 Rivaroxaban* (Xarelto*) 20 Mg Tablet, 20 MG PO WITH DINNER for 90 Days, TAB Prov:ONEIL VOEGL 11/24/18 Hydromorphone Hcl (Dilaudid) 2 Mg Tab, 4 MG PO Q4H PRN for MODERATE PAIN LEVEL 4-6, #30 TAB Prov:ONEIL VOGEL S. 11/24/18 Ascorbic Acid (Vitamin C) 500 Mg Tab, 500 MG PO DAILY, #30 TAB 2 Refills Prov:ONEIL VOGEL S. 11/24/18 Multivits,Ca,Minerals/Iron/FA (Thera M Plus Tablet) 1 Each Tablet, 1 TAB PO DAILY, #30 TAB 2 Refills Prov:ONEIL VOGEL S. 11/24/18 Sennosides* (Senna Lax*) 8.6 Mg Tablet, 1 TAB PO BID, #60 TAB 1 Refill Prov:ONEIL VOGEL S. 11/24/18 Current Medications IV Flush (NS 3 ml) 3 ml PER PROTOCOL IV ; Start 03/07/19 at 20:00 Ondansetron HCl (Zofran Inj) 4 mg Q6H PRN IV NAUSEA/VOMITING Last administered on 03/08/19at 23:46; Admin Dose 4 MG; Start 03/07/19 at 20:00 Acetaminophen (Tylenol Tab) 650 mg Q6H PRN PO .PAIN 1-3 OR TEMP; Start 03/07/19 at 20:00 Acetaminophen/ Hydrocodone Bitart ([place] (5/325)) 1 tab Q6H PRN PO .MOD PAIN 4- 6 Last administered on 03/08/19at 18:38; Admin Dose 1 TAB; Start 03/07/19 at 20:00 Hydromorphone HCl (Dilaudid) 0.5 mg Q4H PRN IV .SEVERE PAIN 7-10 Last administered on 03/09/19at 14:10; Admin Dose 0.5 MG; Start 03/07/19 at 20:00 Docusate Sodium (Colace) 100 mg Q12H PRN PO .CONSTIPATION; Start 03/07/19 at 20:00 Bisacodyl (Dulcolax) 5 mg DAILY PRN PO .CONSTIPATION; Start 03/07/19 at 20:00 Enoxaparin Sodium (Lovenox) 40 mg DAILY SC Last administered on 03/08/19at 08:45; Admin Dose 40 MG; Start 03/08/19 at 09:00 Ascorbic Acid (Vitamin C) 500 mg DAILY PO Last administered on 03/08/19at 08:39; Admin Dose 500 MG; Start 03/08/19 at 09:00 Cholecalciferol (Vitamin D) 2,000 unit DAILY PO Last administered on 03/08/19 08:39; Admin Dose 2,000 UNIT; Start 03/08/19 at 09:00 Famotidine (Pepcid) 20 mg DAILY PO Last administered on 03/08/19 08:39; Admin Dose 20 MG; Start 03/08/19 at 09:00 Lactobacillus Acidophilus/ Rhamnosus (Culturelle) 1 cap BID PO Last admi nistered on 03/08/19 20:20; Admin Dose 1 CAP; Start 03/08/19 at 09:00 Multivitamins/ Minerals (Theragran-M) 1 tab DAILY PO Last administered on 03/08/19 08:39; Admin Dose 1 TAB; Start 03/08/19 at 09:00 Senna (Senokot) 1 tab BID PO Last administered on 03/08/19 20:20; Admin Dose 1 TAB; Start 03/08/19 at 09:00 Zinc Sulfate (Zinc Sulfate) 220 mg DAILY PO Last administered on 03/08/19 12:16; Admin Dose 220 MG; Start 03/08/19 at 11:00 Levofloxacin (Levaquin) 750 mg DAILY@06 PO ; Start 03/10/19 at 06:00 Meds reviewed: Yes Allergies Coded Allergies: No Known Allergy (Unverified , 01/29/19) Allergies Reviewed: Yes Labs/Studies Labs Reviewed: Reviewed by anesthesiologist Result Diagram: 03/09/19 0503/09/19 0525 Laboratory Tests 03/09/19 05:25 test: Negative Pre-procedure Exam Last vitals Vital Signs Date Temp Pulse Resp B/P (MAP) Pulse Ox O2 O2 Flow FiO2 Time Delivery Rate 03/09/19 98.6 74 20 104/65 99 Room Air 15:31 (78) Airway: Adequate mouth opening, Adequate thyromental dist Mallampati: Mallampati IV Teeth: Normal Lung: Normal Heart: Normal ASA Physical Status ASA physical status: 3 Emergency: None Pre-operative Attestations Prior to commencing anesthesia and surgery, the patient was re-evaluated, there was verification of: *The patient's identity *The results of appropriate recent lab work and preoperative vital signs *The above evaluation not changing prior to induction *Anesthetic plan, risk benefits, alternative and complications discussed with patient/family; questions answered; patient/family understands, accepts and wishes to proceed. EASTON DAWSON DO Mar 09, 2019 18:26
[2019-03-09] MEDS ORDERED: HYDROmorphONE 1 MG/5 ML IV SYRINGE IV PRN ×3 (18:30)
[2019-03-09] MEDS ORDERED: LIDOCAINE 2% (SDV) 5 ML INJ ONE (18:32)
[2019-03-09] MEDS ORDERED: PROPOFOL 20 ML ONE (18:32)
[2019-03-09] MEDS ORDERED: MIDAZOLAM 1 MG/ML 2 ML INJ ONE (18:32)
[2019-03-09] MEDS ORDERED: FENTAnyl 50 MCG/ML VIAL ONE (18:32)
[2019-03-09] MEDS ORDERED: ROPIVACAINE 0.5 % 30 ML VIAL ONE (18:34)
[2019-03-09] MEDS ORDERED: ONDANSETRON 4 MG INJ ONE (18:57)
[2019-03-09] MEDS ORDERED: CEFAZOLIN 1 GM INJ ONE (18:57)
[2019-03-09] MEDS ORDERED: BACITRACIN 50000 UNITS INJ IRR ONE (19:16)
--- NOTE | 2019-03-09 19:39 | SIPON ---
Date/Time of Note Date/Time of Note DATE: 03/09/19 TIME: 19:39 Operative Report Preoperative Diagnosis Right lower extremity surgical ulcer Right lower extremity abscess Right lower extremity infected hematoma Postoperative Diagnosis Right lower extremity surgical ulcer Right lower extremity abscess Right lower extremity infected hematoma Operation/Procedure Performed right lower extremity excisional debridement right lower extremity Incision and drainage Surgeon see signature line operations manager assistant Sterling Carney DPM Anesthesia: general Estimated blood loss: 10 - 50 ml's Transfusion Required none Specimen right lower extremity wound culture Grafts/Implants none Complications none SUMMER BALDERRAMA DPM Mar 09, 2019 19:39
--- NOTE | 2019-03-09 19:40 | PAC ---
Date/Time of Note Date/Time of Note DATE: 03/09/19 TIME: 19:39 Post-Anesthesia Notes Post-Anesthesia Note Last documented vital signs Vital Signs Date Temp Pulse Resp B/P (MAP) Pulse Ox O2 O2 Flow FiO2 Time Delivery Rate 03/09/19 99 72 18 111/62 99 Room Air 0 Activity: WNL Respiratory function: WNL Cardiovascular function: WNL Mental status: Baseline Pain reasonably controlled: Yes Hydration appropriate: Yes Nausea/Vomiting absent: Yes EASTON DAWSON DO Mar 09, 2019 19:40
--- NOTE | 2019-03-09 19:49 | OPR ---
Date/Time of Note Date/Time of Note DATE: 03/09/19 TIME: 19:49 Operative Report Preoperative Diagnosis Right lower extremity surgical ulcer Right lower extremity abscess Right lower extremity infected hematoma Postoperative Diagnosis Right lower extremity surgical ulcer Right lower extremity abscess Right lower extremity infected hematoma Operation/Procedure Performed right lower extremity excisional debridement right lower extremity Incision and drainage Surgeon see signature line Cathead Worker Sterling Carney DPM Anesthesia Type: general Estimated Blood Loss: 10 - 50 ml's Transfusion none Specimen right lower extremity wound culture Grafts/Implants none Complications none Indications 38 y/o F patient with history of a 3 compartment fasciotomy and thrombectomy back in October now presents with concerns for abscess to the right lower extremity. Discussed surgical intervention and patient amenable to the procedure. Addressed all of the patient's questions and concerns no promises or guarantees were given. Procedure Description Patient was brought into the OR and placed in the supine position. A pre- operative popliteal block was performed by the anesthesia team. The right lower extremity was scrubbed, prepped, and draped in the usual aseptic manner. A formal time out was conducted. Attention was directed to the anterior compartment fasciotomy ulceration site and there was area where the wound probed deep into the the compartment at the mid to distal aspect of the ulceration site and using blunt dissection there was approximately 10mL of purulent drainage with necrotic adipose tissue. Cultures were obtained of the drained fluid. Excisional debridement of skin/subQ/muscle/fascia was performed using pickup/scissors. Fibrotic and necrotic tissue were removed. Approximate area of debridement was 10cm2. Next attention was directed to the medial leg where the fasciotomy of the posterior/deep posterior compartment was done. There was also another location where the ulceration site probed deep into the compartment about mid tibial region. Blunt dissection was performed and approximately 10-15mL of what appeared to be infected hematoma was expelled from the area. Excisional debride ment of skin/subQ/muscle/fascia was performed using pickup/scissors. Fibrotic and necrotic tissue were removed. Approximate area of debridement was 10cm2. Total area debrided approximately 20cm2 Copious antibiotic infused pulse lavage irrigation was used. 1/2in iodoform packing was applied to the deep probing sites and betadine 4x4 gauze, kerlix and damari wrap was applied to the right lower extremity. Patient was transferred to the PACU with vital signs stable and neurovascular status intact. SUMMER BALDERRAMA DPM Mar 09, 2019 19:49
[2019-03-10 00:29] VITALS: BP 112/65; PULSE 78; RESP 18
[2019-03-10] MEDS: HYDROmorphONE 0.5 MG/0.5 ML SYG IV PRN ×6 (00:39→22:14)
[2019-03-10 04:16] VITALS: BP 109/62; PULSE 86; RESP 18
[2019-03-10] MEDS: LEVOFLOXACIN 750 MG TABLET PO SCH (05:34)
--- NOTE | 2019-03-10 06:54 | PN ---
DATE: 03/09/2019 SUBJECTIVE: The patient is alert, denies pain, looks comfortable, no fevers overnight. WBC 8.4, no shift, no bands. BUN 8, creatinine 0.71. MICROBIOLOGY: Blood cultures remain negative. Right lower extremity wound culture growing Enterobac ter cloacae susceptible to all antibiotics. DIAGNOSTICS: Lower extremity CT revealed abscess within the anterior compartment musculature of the lower leg measuring 3.3 x 1.2 x 14 cm, abscess within the deep posterior compartment musculature of t he lower leg measuring approximately 1.7 x 0.8 x 6.4 cm, right groin and right pelvic adenopathy pres umably reactive and new from 11/05/2018. Extremity venous study revealed no DVT. Arterial study showed 30% to 49% stenosis of right common fe moral artery. Chest x-ray on admission revealed no pneumonia. ANTIMICROBIALS: The patient is on: 1. IV vancomycin. 2. Merrem. PHYSICAL EXAMINATION: GENERAL: Well-developed, well-nourished 38-year-old woman who is alert, in no distress. HEENT: Head atraumatic, normocephalic. Sclerae anicteric. Buccal mucosa pink. NECK: Supple. CHEST: Rise symmetrical. Breath sounds diminished to bases. HEART: S1, S2. ABDOMEN: Soft, bowel sounds present. EXTREMITIES: Right lower extremity Gage wrapped. ASSESSMENT: 1. Right lower extremity cellulitis with abscess. 2. Diabetes. 3. Diabetic neuropathy. 4. History of right lower extremity deep venous thrombosis, ischemic compartment syndrome, status po st fasciotomy in 10/2018. 5. History of atrial septal defect. PLAN: The patient remains stable. She is being seen by podiatry. We will change antibiotics to lev ofloxacin and await for surgical debridement. Dictated By: TIFFANIE DEVINE AERONAUTICAL ENGINEERING TEACHER for ALEN GONSALEZ MD NI/NTS Conf#: [id number] DID#: [id number] CC: SHYAM WELLS MD;*EndCC*
[2019-03-10 07:16] VITALS: BP_SYST 100; BP_SYST 91; BP_DIAS 51; BP_DIAS 57; PULSE 90; RESP 18
[2019-03-10] MEDS: ZINC SULFATE 220 MG CAP PO SCH (08:10)
[2019-03-10] MEDS: LACTOBACILLUS RHAMNOSUS CAP PO SCH ×2 (08:10→20:30)
[2019-03-10] MEDS: ASCORBIC ACID 500 MG TAB PO SCH (08:11)
[2019-03-10] MEDS: CHOLECALCIFEROL 2,000 UNIT CAP PO SCH (08:11)
[2019-03-10] MEDS: MULTIVITAMINS/MINERALS TAB PO SCH (08:11)
[2019-03-10] MEDS: SENNA TAB PO SCH ×2 (08:11→20:30)
[2019-03-10] MEDS: FAMOTIDINE 20 MG TAB PO SCH (08:11)
[2019-03-10] MEDS: ENOXAPARIN 40 MG/0.4 ML SYG SC SCH ×2 (08:21→10:00)
--- NOTE | 2019-03-10 10:57 | CONS ---
Assessment/Plan Assessment/Plan Hospital Course (Demo Recall) SUBJECTIVE: The patient is alert, looks comfortable, no fevers overnight. MICROBIOLOGY: Blood cultures remain negative. Right lower extremity wound culture growing Enterobacter cloaca, Corynebacterium group JK and staph aureus preliminary DIAGNOSTICS: Lower extremity CT revealed abscess within the anterior compartment musculature of the lower leg measuring 3.3 x 1.2 x 14 cm, abscess w ithin the deep posterior compartment musculature of the lower leg measuring approximately 1.7 x 0.8 x 6.4 cm, right groin and right pelvic adenopathy presumably reactive and new from 11/05/2018. Extremity venous study revealed no DVT. Arterial study showed 30% to 49% stenosis of right common femoral artery. Chest x-ray on admission revealed no pneumonia. ANTIMICROBIALS: Levaquin PHYSICAL EXAMINATION: GENERAL: Well-developed, well-nourished 38-year-old woman who is alert, in no distress. HEENT: Head atraumatic, normocephalic. Sclerae anicteric. Buccal mucosa pink. NECK: Supple. CHEST: Rise symmetrical. Breath sounds diminished to bases. HEART: S1, S2. ABDOMEN: Soft, bowel sounds present. EXTREMITIES: Right lower extremity Gage wrapped. ASSESSMENT: 1. Right lower extremity cellulitis with abscess, status post I&D. 2. Diabetes. 3. Diabetic neuropathy. 4. History of right lower extremity deep venous thrombosis, ischemic compartment syndrome, status post fasciotomy in 10/2018. 5. History of atrial septal defect. PLAN: The patient remains stable. We will restart vancomycin to cover Corynebacterium group JK, await for intraoperative cultures, wound care per podiatry Consultation Date/Type/Reason Admit Date/Time Mar 07, 2019 at 22:10 Initial Consult Date Type of Consult id Date/Time of Note DATE: 03/10/19 TIME: 10:56 Exam/Review of Systems Exam Vitals Vital Signs Date Temp Pulse Resp B/P (MAP) Pulse Ox O2 O2 Flow FiO2 Time Delivery Rate 03/10/19 99.0 90 18 100/57 97 Room Air 07:16 (71) 03/09/19 2.0 21:00 Intake and Output 03/09/19 03/09/19 03/10/19 1515:00 23:00 07:00 IntakeIntake Total 800 ml 440 ml OutputOutput Total 30 ml BalanceBalance 770 ml 440 ml Results Result Diagram: 03/10/1952503/10/19525 Results 24hrs Laboratory Tests Test 03/10/19 05:26 White Blood Count 10.3 # Red Blood Count 3.91 L Hemoglobin 10.3 L Hematocrit 32.8 L Mean Corpuscular Volume 83.9 Mean Corpuscular Hemoglobin 26.3 L Mean Corpuscular Hemoglobin Concent 31.4 L Red Cell Distribution Width 17.2 H Platelet Count 375 Mean Platelet Volume 10.3 Immature Granulocytes % 0.400 Neutrophils % 77.3 H Lymphocytes % 11.8 L Monocytes % 5.9 Eosinophils % 3.9 Basophils % 0.7 Nucleated Red Blood Cells % 0.0 Immature Granulocytes # 0.040 H Neutrophils # 8.0 H Lymphocytes # 1.2 Monocytes # 0.6 Eosinophils # 0.4 Basophils # 0.1 Nucleated Red Blood Cells # 0.0 Sodium Level 139 Potassium Level 3.9 Chloride Level 104 Carbon Dioxide Level 28 Anion Gap 7 Blood Urea Nitrogen 10 Creatinine 0.62 Est Glomerular Filtrat Rate mL/min > 60 Glucose Level 123 Calcium Level 8.8 Total Bilirubin 0.3 Direct Bilirubin 0.00 Indirect Bilirubin 0.3 Aspartate Amino Transf (AST/SGOT) 48 H Alanine Aminotransferase (ALT/SGPT) 32 Alkaline Phosphatase 126 H Total Protein 7.5 Albumin 3.4 Globulin 4.10 H Albumin/Globulin Ratio 0.82 Medications Medication Current Medications IV Flush (NS 3 ml) 3 ml PER PROTOCOL IV ; Start 03/07/19 at 20:00 Ondansetron HCl (Zofran Inj) 4 mg Q6H PRN IV NAUSEA/VOMITING Last administered on 03/08/19at 23:46; Admin Dose 4 MG; Start 03/07/19 at 20:00 Acetaminophen (Tylenol Tab) 650 mg Q6H PRN PO .PAIN 1-3 OR TEMP; Start 03/07/19 at 20:00 Acetaminophen/ Hydrocodone Bitart ([place] (5/325)) 1 tab Q6H PRN PO .MOD PAIN 4- 6 Last administered on 03/08/19at 18:38; Admin Dose 1 TAB; Start 03/07/19 at 20:00 Hydromorphone HCl (Dilaudid) 0.5 mg Q4H PRN IV .SEVERE PAIN 7-10 Last administered on 03/10/19 09:39; Admin Dose 0.5 MG; Start 03/07/19 at 20:00 Docusate Sodium (Colace) 100 mg Q12H PRN PO .CONSTIPATION; Start 03/07/19 at 20:00 Bisacodyl (Dulcolax) 5 mg DAILY PRN PO .CONSTIPATION; Start 03/07/19 at 20:00 Enoxaparin Sodium (Lovenox) 40 mg DAILY SC Last administered on 03/08/19 08:45; Admin Dose 40 MG; Start 03/08/19 at 09:00 Ascorbic Acid (Vitamin C) 500 mg DAILY PO Last administered on 03/10/19 08:11; Admin Dose 500 MG; Start 03/08/19 at 09:00 Cholecalciferol (Vitamin D) 2,000 unit DAILY PO Last administered on 03/10/19 08:11; Admin Dose 2,000 UNIT; Start 03/08/19 at 09:00 Famotidine (Pepcid) 20 mg DAILY PO Last administered on 03/10/19 08:11; Admin Dose 20 MG; Start 03/08/19 at 09:00 Lactobacillus Acidophilus/ Rhamnosus (Culturelle) 1 cap BID PO Last administered on 03/10/19 08:10; Admin Dose 1 CAP; Start 03/08/19 at 09:00 Multivitamins/ Minerals (Theragran-M) 1 tab DAILY PO Last administered on 03/10/19 08:11; Admin Dose 1 TAB; Start 03/08/19 at 09:00 Senna (Senokot) 1 tab BID PO Last administered on 03/10/19 08:11; Admin Dose 1 TAB; Start 03/08/19 at 09:00 Zinc Sulfate (Zinc Sulfate) 220 mg DAILY PO Last administered on 03/10/19 08:10; Admin Dose 220 MG; Start 03/08/19 at 11:00 Levofloxacin (Levaquin) 750 mg DAILY@06 PO Last administered on 03/10/19 05:34; Admin Dose 750 MG; Start 03/10/19 at 06:00 TIFFANIE DEVINE NP Mar 10, 2019 10:57
[2019-03-10] MEDS ORDERED: VANCOMYCIN IV PER PHARMACY XX SCH (11:00)
[2019-03-10 11:14] VITALS: BP 98/57; PULSE 98; RESP 16
--- NOTE | 2019-03-10 12:02 | PN ---
Date/Time of Note Date/Time of Note DATE: 03/10/19 TIME: 12:00 Assessment/Plan VTE Prophylaxis Risk score (from Nsg)>0 risk: 3 SCD applied (from Ns): Yes Pharmacological prophylaxis: LMWH Lines/Catheters IV Catheter Type (from Nrsg): Saline Lock Urinary Cath still in place: No Assessment/Plan Assessment/Plan 38 yo woman with history of R leg DVT s/p fasciotomy and thrombectomy presents now with new abscesses and infection of that leg. 1. Recurrent right lower extremity postop infection: - Patient has a history of Three compartment fasciotomy right calf, Norberto thrombectomy right posterior tibial artery, s/p wound wac. Previous wound cultures were positive for Enterobacter cloacae, strep agalactiae group B, Corynebacterium jk. - Currently on vanco and meropenem. ID following. - CT shows two large abscesses. - s/p operative I&D and debridement on 03/09 - Postoperative PT, followup wound cultures. 2. Right lower extremity deep venous thrombosis. - Was initiated on Xarelto in October 2018, she is still taking it. Last dose just prior to admission. - Will hold for now, plan for surgical I&D and debridement. - After surgery will start therapeutic anticoagulation when okay by podiatry. 3. History of atrial septal defect. - This was seen on echocardiogram with bubble study performed in 09/2018. Previously cardiology evaluated the patient and did not recommend shunt closure. 4. History of iron-deficiency anemia. Hemoglobin stable. Continue to monitor for now. 5. History of prediabetes, last A1c was 5.6. Diabetic diet 6. DVT and GI prophylaxis: SCDs, no GI prophylaxis Result Diagram: 03/10/19 0503/10/19 05 Subjective 24 Hr Interval Summary Free Text/Dictation Went for operative debridement and I&D yesterday. Some serous drainage from bottom of bandage today. Otherwise feeling well. Pain well controlled. Exam/Review of Systems Exam Vitals Vital Signs Date Temp Pulse Resp B/P (MAP) Pulse Ox O2 O2 Flow FiO2 Time Delivery Rate 03/10/19 98.7 98 16 98/57 (71) 99 Room Air 11:14 03/10/19 2.0 08:00 Intake and Output 03/09/19 03/09/19 03/10/19 1515:00 23:00 07:00 IntakeIntake Total 800 ml 440 ml OutputOutput Total 30 ml BalanceBalance 770 ml 440 ml Exam General: Patient is well-developed well-nourished The patient is alert oriented x3 lying comfortably in bed. HEENT: Atraumatic, normocephalic. The pupils are equal, round and reactive. Extr aocular motor are intact Neck: Supple with full range of motion. No rigidity or meningismus Chest: Nontender Lungs: Clear to auscultation bilaterally no crackles rales or wheezing Heart: Normal S1-S2, Regular rhythm and rate. No murmur, S3, or S4 Abdomen: Soft , nontender, nondistended , bowel sounds are present. No guarding no rebound tenderness , No masses or organomegaly. No costovertebral temporal angle mass Extremities: Right lower extremity: Fasciotomy scars present, dressings were changed and are currently clean dry and intact. Patient's pulses are present, she is able to wiggle her toes, skin is warm to touch. Results Results 24hrs Laboratory Tests Test 03/10/19 05:26 White Blood Count 10.3 # Red Blood Count 3.91 L Hemoglobin 10.3 L Hematocrit 32.8 L Mean Corpuscular Volume 83.9 Mean Corpuscular Hemoglobin 26.3 L Mean Corpuscular Hemoglobin Concent 31.4 L Red Cell Distribution Width 17.2 H Platelet Count 375 Mean Platelet Volume 10.3 Immature Granulocytes % 0.400 Neutrophils % 77.3 H Lymphocytes % 11.8 L Monocytes % 5.9 Eosinophils % 3.9 Basophils % 0.7 Nucleated Red Blood Cells % 0.0 Immature Granulocytes # 0.040 H Neutrophils # 8.0 H Lymphocytes # 1.2 Monocytes # 0.6 Eosinophils # 0.4 Basophils # 0.1 Nucleated Red Blood Cells # 0.0 Sodium Level 139 Potassium Level 3.9 Chloride Level 104 Carbon Dioxide Level 28 Anion Gap 7 Blood Urea Nitrogen 10 Creatinine 0.62 Est Glomerular Filtrat Rate mL/min > 60 Glucose Level 123 Calcium Level 8.8 Total Bilirubin 0.3 Direct Bilirubin 0.00 Indirect Bilirubin 0.3 Aspartate Amino Transf (AST/SGOT) 48 H Alanine Aminotransferase (ALT/SGPT) 32 Alkaline Phosphatase 126 H Total Protein 7.5 Albumin 3.4 Globulin 4.10 H Albumin/Globulin Ratio 0.82 Medications Medication Current Medications IV Flush (NS 3 ml) 3 ml PER PROTOCOL IV ; Start 03/07/19 at 20:00 Ondansetron HCl (Zofran Inj) 4 mg Q6H PRN IV NAUSEA/VOMITING Last administered on 03/08/19at 23:46; Admin Dose 4 MG; Start 03/07/19 at 20:00 Acetaminophen (Tylenol Tab) 650 mg Q6H PRN PO .PAIN 1-3 OR TEMP; Start 03/07/19 at 20:00 Acetaminophen/ Hydrocodone Bitart ([place] (5/325)) 1 tab Q6H PRN PO .MOD PAIN 4- 6 Last administered on 03/08/19at 18:38; Admin Dose 1 TAB; Start 03/07/19 at 20:00 Hydromorphone HCl (Dilaudid) 0.5 mg Q4H PRN IV .SEVERE PAIN 7-10 Last administered on 03/10/19at 09:39; Admin Dose 0.5 MG; Start 03/07/19 at 20:00 Docusate Sodium (Colace) 100 mg Q12H PRN PO .CONSTIPATION; Start 03/07/19 at 20:00 Bisacodyl (Dulcolax) 5 mg DAILY PRN PO .CONSTIPATION; Start 03/07/19 at 20:00 Enoxaparin Sodium (Lovenox) 40 mg DAILY SC Last administered on 03/08/19at 08:45; Admin Dose 40 MG; Start 03/08/19 at 09:00 Ascorbic Acid (Vitamin C) 500 mg DAILY PO Last administered on 03/10/19 08:11; Admin Dose 500 MG; Start 03/08/19 at 09:00 Cholecalciferol (Vitamin D) 2,000 unit DAILY PO Last administered on 03/10/19 08:11; Admin Dose 2,000 UNIT; Start 03/08/19 at 09:00 Famotidine (Pepcid) 20 mg DAILY PO Last administered on 03/10/19 08:11; Admin Dose 20 MG; Start 03/08/19 at 09:00 Lactobacillus Acidophilus/ Rhamnosus (Culturelle) 1 cap BID PO Last administered on 03/10/19 08:10; Admin Dose 1 CAP; Start 03/08/19 at 09:00 Multivitamins/ Minerals (Theragran-M) 1 tab DAILY PO Last administered on 03/10/19 08:11; Admin Dose 1 TAB; Start 03/08/19 at 09:00 Senna (Senokot) 1 tab BID PO Last administered on 03/10/19 08:11; Admin Dose 1 TAB; Start 03/08/19 at 09:00 Zinc Sulfate (Zinc Sulfate) 220 mg DAILY PO Last administered on 03/10/19 08:10; Admin Dose 220 MG; Start 03/08/19 at 11:00 Levofloxacin (Levaquin) 750 mg DAILY@06 PO Last administered on 03/10/19at 05:34; Admin Dose 750 MG; Start 03/10/19 at 06:00 Vancomycin HCl (Vanco Iv Per Pharmacy) VANCOMYCIN PER PHARMACY PER PROTOCOL XX ; Start 03/10/19 at 11:00 Vancomycin HCl 100 ml @ 100 mls/hr Q8H IVPB ; Start 03/10/19 at 12:00 JUVE SOLIMAN MD Mar 10, 2019 12:02
[2019-03-10] MEDS: HYDROCODONE/APAP (5/325) TAB PO PRN ×2 (14:10→20:31)
[2019-03-10] MEDS: VANCOMYCIN 500 MG (PMX) 100 ML IVPB SCH ×2 (14:15→20:30)
[2019-03-10 15:13] VITALS: BP 109/63; PULSE 102; RESP 18
--- NOTE | 2019-03-10 15:42 | CONS ---
Assessment/Plan Assessment/Plan Assessment/Plan (Daily) Right lower extremity surgical ulcer Right lower extremity abscess Right lower extremity cellulitis PAD DM2 with peripheral neuropathy DM2 well controlled Plan Patient s/p incision and drainage and excisional debridement. Wound sites were irrigated and recommend daily dressing changes. Intra op Wound Cultures pending. Previous cultures showed e.cloacae, corynebacterium jeikeum, staph aureus. Abx per ID recommendations. Discussed with patient will need staged procedures in order achieve wound closure. Recommend vascular surgery evaluation. Consultation Date/Type/Reason Admit Date/Time Mar 07, 2019 at 22:10 Initial Consult Date Date/Time of Note DATE: 03/10/19 TIME: 15:41 24 HR Interval Summary Free Text/Dictation Patient complaining of chest pains but denies difficulty breathing. Exam/Review of Systems Exam Vitals Vital Signs Date Temp Pulse Resp B/P (MAP) Pulse Ox O2 O2 Flow FiO2 Time Delivery Rate 03/10/19 98.0 102 18 109/63 96 Room Air 15:13 (78) 03/10/19 2.0 08:00 Intake and Output 03/09/19 03/09/19 03/10/19 1515:00 23:00 07:00 IntakeIntake Total 800 ml 440 ml OutputOutput Total 30 ml BalanceBalance 770 ml 440 ml Exam DP/PT pulses palpable Pedal hairs presents b/l lower extremity with skin temp gradient warm to warm from proximal leg to distal feet Absent protective sensations to the midfoot and distal digits Right lower leg with fasciotomy incision sites 30cm x 4cm x 0.2cm on the medial aspect with granular wound base, no proximal streaking, no purulence Right lower leg with fasciotomy incision sites 31cm x 1.5cm x 0.2cm on the lateral aspect with granular wound base, no proximal streaking, no purulence There is an aspect to the distal aspect of the lateral wound which probes deep but not to bone approximately 2.5cm. Mild serosanguinous drainage noted from the probing site No purulence expressed from the surgical sites. Muscle strength 4/5 to the right lower extremity with plantar flexion, dorsiflexion, inversion, eversion. CT right lower extremity IMPRESSION: 1. Abscess within the anterior compartment musculature of the lower leg measuring approximately 3.3 x 1.2 x 14.0 cm. 2. Abscess within the deep posterior compartment musculature of the lower leg measuring approximately 1.7 x 0.8 x 6.4 cm. 3. Right groin and right pelvic adenopathy is presumably reactive and new from November 05, 2018. Consider follow-up imaging as warranted to assess stability. Non invasive arterial studies IMPRESSION: Elevated velocity in the right common femoral artery, possibly indicating a 30 - 49% stenosis. If further characterization of the arterial vasculature is needed, CTA is recommended. Venous ultrasound IMPRESSION: No sonographic evidence for deep venous thrombosis. The previously seen venous thrombus has resolved. Results Result Diagram: 03/10/1952503/10/19525 Results 24hrs Laboratory Tests Test 03/10/19 05:26 White Blood Count 10.3 # Red Blood Count 3.91 L Hemoglobin 10.3 L Hematocrit 32.8 L Mean Corpuscular Volume 83.9 Mean Corpuscular Hemoglobin 26.3 L Mean Corpuscular Hemoglobin Concent 31.4 L Red Cell Distribution Width 17.2 H Platelet Count 375 Mean Platelet Volume 10.3 Immature Granulocytes % 0.400 Neutrophils % 77.3 H Lymphocytes % 11.8 L Monocytes % 5.9 Eosinophils % 3.9 Basophils % 0.7 Nucleated Red Blood Cells % 0.0 Immature Granulocytes # 0.040 H Neutrophils # 8.0 H Lymphocytes # 1.2 Monocytes # 0.6 Eosinophils # 0.4 Basophils # 0.1 Nucleated Red Blood Cells # 0.0 Sodium Level 139 Potassium Level 3.9 Chloride Level 104 Carbon Dioxide Level 28 Anion Gap 7 Blood Urea Nitrogen 10 Creatinine 0.62 Est Glomerular Filtrat Rate mL/min > 60 Glucose Level 123 Calcium Level 8.8 Total Bilirubin 0.3 Direct Bilirubin 0.00 Indirect Bilirubin 0.3 Aspartate Amino Transf (AST/SGOT) 48 H Alanine Aminotransferase (ALT/SGPT) 32 Alkaline Phosphatase 126 H Total Protein 7.5 Albumin 3.4 Globulin 4.10 H Albumin/Globulin Ratio 0.82 Medications Medication Current Medications IV Flush (NS 3 ml) 3 ml PER PROTOCOL IV ; Start 03/07/19 at 20:00 Ondansetron HCl (Zofran Inj) 4 mg Q6H PRN IV NAUSEA/VOMITING Last administered on 03/08/19at 23:46; Admin Dose 4 MG; Start 03/07/19 at 20:00 Acetaminophen (Tylenol Tab) 650 mg Q6H PRN PO .PAIN 1-3 OR TEMP; Start 03/07/19 at 20:00 Acetaminophen/ Hydrocodone Bitart ([place] (5/325)) 1 tab Q6H PRN PO .MOD PAIN 4- 6 Last administered on 03/10/19 14:10; Admin Dose 1 TAB; Start 03/07/19 at 20:00 Hydromorphone HCl (Dilaudid) 0.5 mg Q4H PRN IV .SEVERE PAIN 7-10 Last administered on 03/10/19 14:09; Admin Dose 0.5 MG; Start 03/07/19 at 20:00 Docusate Sodium (Colace) 100 mg Q12H PRN PO .CONSTIPATION; Start 03/07/19 at 20:00 Bisacodyl (Dulcolax) 5 mg DAILY PRN PO .CONSTIPATION; Start 03/07/19 at 20:00 Enoxaparin Sodium (Lovenox) 40 mg DAILY SC Last administered on 03/08/19 08:45; Admin Dose 40 MG; Start 03/08/19 at 09:00 Ascorbic Acid (Vitamin C) 500 mg DAILY PO Last administered on 03/10/19 08:11; Admin Dose 500 MG; Start 03/08/19 at 09:00 Cholecalciferol (Vitamin D) 2,000 unit DAILY PO Last administered on 03/10/19 08:11; Admin Dose 2,000 UNIT; Start 03/08/19 at 09:00 Famotidine (Pepcid) 20 mg DAILY PO Last administered on 03/10/19 08:11; Admin Dose 20 MG; Start 03/08/19 at 09:00 Lactobacillus Acidophilus/ Rhamnosus (Culturelle) 1 cap BID PO Last administered on 03/10/19 08:10; Admin Dose 1 CAP; Start 03/08/19 at 09:00 Multivitamins/ Minerals (Theragran-M) 1 tab DAILY PO Last administered on 03/10/19 08:11; Admin Dose 1 TAB; Start 03/08/19 at 09:00 Senna (Senokot) 1 tab BID PO Last administered on 03/10/19 08:11; Admin Dose 1 TAB; Start 03/08/19 at 09:00 Zinc Sulfate (Zinc Sulfate) 220 mg DAILY PO Last administered on 7/25/19at 08:10; Admin Dose 220 MG; Start 03/08/19 at 11:00 Levofloxacin (Levaquin) 750 mg DAILY@06 PO Last administered on 03/10/19at 05:34; Admin Dose 750 MG; Start 03/10/19 at 06:00 Vancomycin HCl (Vanco Iv Per Pharmacy) VANCOMYCIN PER PHARMACY PER PROTOCOL XX ; Start 03/10/19 at 11:00 Vancomycin HCl 100 ml @ 100 mls/hr Q8H IVPB Last administered on 03/10/19at 14:15; Admin Dose 100 MLS/HR; Start 03/10/19 at 12:00 SUMMER BALDERRAMA DPM Mar 10, 2019 15:42
[2019-03-10 20:00] VITALS: BP 94/59; PULSE 86; RESP 17
[2019-03-11] VITALS: BP 94/57; PULSE 91; RESP 17
[2019-03-11 04:00] VITALS: BP 97/65; PULSE 87; RESP 18
[2019-03-11] MEDS: VANCOMYCIN 500 MG (PMX) 100 ML IVPB SCH ×3 (04:47→21:23)
[2019-03-11] MEDS: LEVOFLOXACIN 750 MG TABLET PO SCH (04:47)
[2019-03-11] MEDS: HYDROmorphONE 0.5 MG/0.5 ML SYG IV PRN ×5 (04:47→23:09)
[2019-03-11 07:59] VITALS: BP 101/55; PULSE 76; RESP 17
[2019-03-11] MEDS: ASCORBIC ACID 500 MG TAB PO SCH (08:42)
[2019-03-11] MEDS: MULTIVITAMINS/MINERALS TAB PO SCH (08:42)
[2019-03-11] MEDS: FAMOTIDINE 20 MG TAB PO SCH (08:42)
[2019-03-11] MEDS: SENNA TAB PO SCH ×2 (08:42→21:24)
[2019-03-11] MEDS: CHOLECALCIFEROL 2,000 UNIT CAP PO SCH (08:42)
[2019-03-11] MEDS: ZINC SULFATE 220 MG CAP PO SCH (08:42)
[2019-03-11] MEDS: ENOXAPARIN 40 MG/0.4 ML SYG SC SCH (08:44)
[2019-03-11] MEDS: LACTOBACILLUS RHAMNOSUS CAP PO SCH ×2 (08:52→21:24)
[2019-03-11] MEDS: ONDANSETRON 4 MG INJ IV PRN (08:58)
[2019-03-11] MEDS: HYDROCODONE/APAP (5/325) TAB PO PRN ×2 (09:05→21:34)
--- NOTE | 2019-03-11 09:31 | CONS ---
Assessment/Plan Assessment/Plan Assessment/Plan (Daily) Right lower extremity surgical ulcer Right lower extremity abscess Right lower extremity cellulitis PAD DM2 with peripheral neuropathy DM2 well controlled Plan Appreciate lab results. No purulence or residual infection noted to the lower extremity. Patient s/p incision and drainage and excisional debridement. Wound sites were irrigated and recommend daily dressing changes. Intra op Wound Cultures currently showing no growth. Previous cultures showed e.cloacae, co rynebacterium jeikeum, staph aureus. Abx per ID recommendations. Discussed with patient will need staged procedures in order achieve wound closure. Appreciate vascular surgery evaluation. Consultation Date/Type/Reason Admit Date/Time Mar 07, 2019 at 22:10 Initial Consult Date Date/Time of Note DATE: 03/11/19 TIME: 09:31 24 HR Interval Summary Free Text/Dictation No acute events overnight. Exam/Review of Systems Exam Vitals Vital Signs Date Temp Pulse Resp B/P (MAP) Pulse Ox O2 O2 Flow FiO2 Time Delivery Rate 03/11/19 97.5 76 17 101/55 98 07:59 (70) 03/11/19 Room Air 04:00 03/10/19 2.0 21:00 Intake and Output 03/10/19 03/10/19 03/11/19 1515:00 23:00 07:00 IntakeIntake Total 560 ml 700 ml 100 ml BalanceBalance 560 ml 700 ml 100 ml Exam DP/PT pulses palpable Pedal hairs presents b/l lower extremity with skin temp gradient warm to warm from proximal leg to distal feet Absent protective sensations to the midfoot and distal digits Right lower leg with fasciotomy incision sites 30cm x 4cm x 0.2cm on the medial aspect with granular wound base, no proximal streaking, no purulence Right lower leg with fasciotomy incision sites 31cm x 1.5cm x 0.2cm on the lateral aspect with granular wound base, no proximal streaking, no purulence There is an aspect to the distal aspect of the lateral wound which probes deep but not to bone approximately 2.5cm. Mild serosanguinous drainage noted from the probing site No purulence expressed from the surgical sites. Muscle strength 4/5 to the right lower extremity with plantar flexion, dorsi flexion, inversion, eversion. CT right lower extremity IMPRESSION: 1. Abscess within the anterior compartment musculature of the lower leg measuring approximately 3.3 x 1.2 x 14.0 cm. 2. Abscess within the deep posterior compartment musculature of the lower leg measuring approximately 1.7 x 0.8 x 6.4 cm. 3. Right groin and right pelvic adenopathy is presumably reactive and new from November 05, 2018. Consider follow-up imaging as warranted to assess stability. Non invasive arterial studies IMPRESSION: Elevated velocity in the right common femoral artery, possibly indicating a 30 - 49% stenosis. If further characterization of the arterial vasculature is needed, CTA is recommended. Venous ultrasound IMPRESSION: No sonographic evidence for deep venous thrombosis. The previously seen venous thrombus has resolved. Results Result Diagram: 03/11/19 0455 03/11/19 0455 Results 24hrs Laboratory Tests Test 03/10/19 16:36 03/11/19 04:55 03/11/19 05:43 Troponin I < 0.012 White Blood Count 11.0 H Red Blood Count 3.87 L Hemoglobin 10.3 L Hematocrit 32.4 L Mean Corpuscular Volume 83.7 Mean Corpuscular Hemoglobin 26.6 L Mean Corpuscular Hemoglobin Concent 31.8 L Red Cell Distribution Width 17.2 H Platelet Count 391 Mean Platelet Volume 10.4 Immature Granulocytes % 0.500 H Neutrophils % 64.2 Lymphocytes % 19.2 Monocytes % 7.5 Eosinophils % 7.7 H Basophils % 0.9 Nucleated Red Blood Cells % 0.0 Immature Granulocytes # 0.060 H Neutrophils # 7.1 Lymphocytes # 2.1 Monocytes # 0.8 Eosinophils # 0.9 H Basophils # 0.1 Nucleated Red Blood Cells # 0.0 Sodium Level 140 Potassium Level 4.1 Chloride Level 103 Carbon Dioxide Level 29 Anion Gap 8 Blood Urea Nitrogen 13 Creatinine 0.58 Est Glomerular Filtrat Rate mL/min > 60 Glucose Level 114 Calcium Level 9.3 Total Bilirubin 0.3 Direct Bilirubin 0.00 Indirect Bilirubin 0.3 Aspartate Amino Transf (AST/SGOT) 36 Alanine Aminotransferase (ALT/SGPT) 25 Alkaline Phosphatase 124 H Total Protein 7.9 Albumin 3.7 Globulin 4.20 H Albumin/Globulin Ratio 0.88 Erythrocyte Sedimentation Rate 92 H C-Reactive Protein 5.4 H Medications Medication Current Medications IV Flush (NS 3 ml) 3 ml PER PROTOCOL IV ; Start 03/07/19 at 20:00 Ondansetron HCl (Zofran Inj) 4 mg Q6H PRN IV NAUSEA/VOMITING Last administered on 03/11/19 08:58; Admin Dose 4 MG; Start 03/07/19 at 20:00 Acetaminophen (Tylenol Tab) 650 mg Q6H PRN PO .PAIN 1-3 OR TEMP; Start 03/07/19 at 20:00 Acetaminophen/ Hydrocodone Bitart ([place] (5/325)) 1 tab Q6H PRN PO .MOD PAIN 4- 6 Last administered on 03/11/19 09:05; Admin Dose 1 TAB; Start 03/07/19 at 20:00 Hydromorphone HCl (Dilaudid) 0.5 mg Q4H PRN IV .SEVERE PAIN 7-10 Last administered on 03/11/19 04:47; Admin Dose 0.5 MG; Start 03/07/19 at 20:00 Docusate Sodium (Colace) 100 mg Q12H PRN PO .CONSTIPATION; Start 03/07/19 at 20:00 Bisacodyl (Dulcolax) 5 mg DAILY PRN PO .CONSTIPATION; Start 03/07/19 at 20:00 Enoxaparin Sodium (Lovenox) 40 mg DAILY SC Last administered on 03/11/19 08:44; Admin Dose 40 MG; Start 03/08/19 at 09:00 Ascorbic Acid (Vitamin C) 500 mg DAILY PO Last administered on 03/11/19 08:42; Admin Dose 500 MG; Start 03/08/19 at 09:00 Cholecalciferol (Vitamin D) 2,000 unit DAILY PO Last administered on 03/11/19 08:42; Admin Dose 2,000 UNIT; Start 03/08/19 at 09:00 Famotidine (Pepcid) 20 mg DAILY PO Last administered on 03/11/19 08:42; Admin Dose 20 MG; Start 03/08/19 at 09:00 Lactobacillus Acidophilus/ Rhamnosus (Culturelle) 1 cap BID PO Last administered on 03/11/19 08:52; Admin Dose 1 CAP; Start 03/08/19 at 09:00 Multivitamins/ Minerals (Theragran-M) 1 tab DAILY PO Last administered on 03/11/19 08:42; Admin Dose 1 TAB; Start 03/08/19 at 09:00 Senna (Senokot) 1 tab BID PO Last administered on 03/11/19 08:42; Admin Dose 1 TAB; Start 03/08/19 at 09:00 Zinc Sulfate (Zinc Sulfate) 220 mg DAILY PO Last administered on 03/11/19 08:42; Admin Dose 220 MG; Start 03/08/19 at 11:00 Levofloxacin (Levaquin) 750 mg DAILY@06 PO Last administered on 03/11/19 04:47; Admin Dose 750 MG; Start 03/10/19 at 06:00 Vancomycin HCl (Vanco Iv Per Pharmacy) VANCOMYCIN PER PHARMACY PER PROTOCOL XX ; Start 03/10/19 at 11:00 Vancomycin HCl 100 ml @ 100 mls/hr Q8H IVPB Last administered on 03/11/19 04:47; Admin Dose 100 MLS/HR; Start 03/10/19 at 12:00 Apixaban (Eliquis) 5 mg BID PO ; Start 03/11/19 at 21:00; Status SUMMER LAMAS DPM Mar 11, 2019 09:31
--- NOTE | 2019-03-11 11:26 | CONS ---
Assessment/Plan Assessment/Plan Hospital Course (Demo Recall) SUBJECTIVE: no events, no fevers overnight, looks comfortable. MICROBIOLOGY: Blood cultures remain negative. Right lower extremity wound culture growing Enterobacter cloaca, Corynebacterium group JK and MRSA Extremity venous study revealed no DVT. Arterial study showed 30% to 49% steno sis of right common femoral artery. Chest x-ray on admission revealed no pneumonia. ANTIMICROBIALS: Levaquin Vanco PHYSICAL EXAMINATION: GENERAL: Well-developed, well-nourished 38-year-old woman who is alert, in no distress. HEENT: Head atraumatic, normocephalic. Sclerae anicteric. Buccal mucosa pink. NECK: Supple. CHEST: Rise symmetrical. Breath sounds diminished to bases. HEART: S1, S2. ABDOMEN: Soft, bowel sounds present. EXTREMITIES: Right lower extremity Gage wrapped. ASSESSMENT: 1. Right lower extremity cellulitis with abscess, status post I&D. 2. Diabetes. 3. Diabetic neuropathy. 4. History of right lower extremity deep venous thrombosis, ischemic compartment syndrome, status post fasciotomy in 10/2018. 5. History of atrial septal defect. PLAN: The patient remains stable. Continue abx, wound care per podiatry, may need staged surgical interventions Consultation Date/Type/Reason Admit Date/Time Mar 07, 2019 at 22:10 Initial Consult Date Type of Consult id Date/Time of Note DATE: 03/11/19 TIME: 11:25 Exam/Review of Systems Exam Vitals Vital Signs Date Temp Pulse Resp B/P (MAP) Pulse Ox O2 O2 Flow FiO2 Time Delivery Rate 03/11/19 97.5 76 17 101/55 98 07:59 (70) 03/11/19 Room Air 04:00 03/10/19 2.0 21:00 Intake and Output 03/10/19 03/10/19 03/11/19 1515:00 23:00 07:00 IntakeIntake Total 560 ml 700 ml 100 ml BalanceBalance 560 ml 700 ml 100 ml Results Result Diagram: 03/11/19 0455 03/11/19 0455 Results 24hrs Laboratory Tests Test 03/10/19 16:36 03/11/19 04:55 03/11/19 05:43 Troponin I < 0.012 White Blood Count 11.0 H Red Blood Count 3.87 L Hemoglobin 10.3 L Hematocrit 32.4 L Mean Corpuscular Volume 83.7 Mean Corpuscular Hemoglobin 26.6 L Mean Corpuscular Hemoglobin Concent 31.8 L Red Cell Distribution Width 17.2 H Platelet Count 391 Mean Platelet Volume 10.4 Immature Granulocytes % 0.500 H Neutrophils % 64.2 Lymphocytes % 19.2 Monocytes % 7.5 Eosinophils % 7.7 H Basophils % 0.9 Nucleated Red Blood Cells % 0.0 Immature Granulocytes # 0.060 H Neutrophils # 7.1 Lymphocytes # 2.1 Monocytes # 0.8 Eosinophils # 0.9 H Basophils # 0.1 Nucleated Red Blood Cells # 0.0 Sodium Level 140 Potassium Level 4.1 Chloride Level 103 Carbon Dioxide Level 29 Anion Gap 8 Blood Urea Nitrogen 13 Creatinine 0.58 Est Glomerular Filtrat Rate mL/min > 60 Glucose Level 114 Calcium Level 9.3 Total Bilirubin 0.3 Direct Bilirubin 0.00 Indirect Bilirubin 0.3 Aspartate Amino Transf (AST/SGOT) 36 Alanine Aminotransferase (ALT/SGPT) 25 Alkaline Phosphatase 124 H Total Protein 7.9 Albumin 3.7 Globulin 4.20 H Albumin/Globulin Ratio 0.88 Erythrocyte Sedimentation Rate 92 H C-Reactive Protein 5.4 H Medications Medication Current Medications IV Flush (NS 3 ml) 3 ml PER PROTOCOL IV ; Start 03/07/19 at 20:00 Ondansetron HCl (Zofran Inj) 4 mg Q6H PRN IV NAUSEA/VOMITING Last administered on 03/11/19at 08:58; Admin Dose 4 MG; Start 03/07/19 at 20:00 Acetaminophen (Tylenol Tab) 650 mg Q6H PRN PO .PAIN 1-3 OR TEMP; Start 03/07/19 at 20:00 Acetaminophen/ Hydrocodone Bitart ([place] (5/325)) 1 tab Q6H PRN PO .MOD PAIN 4- 6 Last administered on 03/11/19at 09:05; Admin Dose 1 TAB; Start 03/07/19 at 20:00 Hydromorphone HCl (Dilaudid) 0.5 mg Q4H PRN IV .SEVERE PAIN 7-10 Last administered on 03/11/19at 09:32; Admin Dose 0.5 MG; Start 03/07/19 at 20:00 Docusate Sodium (Colace) 100 mg Q12H PRN PO .CONSTIPATION; Start 03/07/19 at 20:00 Bisacodyl (Dulcolax) 5 mg DAILY PRN PO .CONSTIPATION; Start 03/07/19 at 20:00 Enoxaparin Sodium (Lovenox) 40 mg DAILY SC Last administered on 03/11/19 08:44; Admin Dose 40 MG; Start 03/08/19 at 09:00; Status Hold Ascorbic Acid (Vitamin C) 500 mg DAILY PO Last administered on 03/11/19 08:42; Admin Dose 500 MG; Start 03/08/19 at 09:00 Cholecalciferol (Vitamin D) 2,000 unit DAILY PO Last administered on 03/11/19 08:42; Admin Dose 2,000 UNIT; Start 03/08/19 at 09:00 Famotidine (Pepcid) 20 mg DAILY PO Last administered on 03/11/19 08:42; Admin Dose 20 MG; Start 03/08/19 at 09:00 Lactobacillus Acidophilus/ Rhamnosus (Culturelle) 1 cap BID PO Last administered on 03/11/19 08:52; Admin Dose 1 CAP; Start 03/08/19 at 09:00 Multivitamins/ Minerals (Theragran-M) 1 tab DAILY PO Last administered on 03/11/19 08:42; Admin Dose 1 TAB; Start 03/08/19 at 09:00 Senna (Senokot) 1 tab BID PO Last administered on 03/11/19 08:42; Admin Dose 1 TAB; Start 03/08/19 at 09:00 Zinc Sulfate (Zinc Sulfate) 220 mg DAILY PO Last administered on 03/11/19 08:42; Admin Dose 220 MG; Start 03/08/19 at 11:00 Levofloxacin (Levaquin) 750 mg DAILY@06 PO Last administered on 03/11/19 04:47; Admin Dose 750 MG; Start 03/10/19 at 06:00 Vancomycin HCl (Vanco Iv Per Pharmacy) VANCOMYCIN PER PHARMACY PER PROTOCOL XX ; Start 03/10/19 at 11:00 Vancomycin HCl 100 ml @ 100 mls/hr Q8H IVPB Last administered on 03/11/19 04:47; Admin Dose 100 MLS/HR; Start 03/10/19 at 12:00 Apixaban (Eliquis) 5 mg BID PO ; Start 03/11/19 at 21:00 TIFFANIE DEVINE NP Mar 11, 2019 11:26
[2019-03-11 11:50] VITALS: BP 103/62; PULSE 80; RESP 18
--- NOTE | 2019-03-11 15:12 | PN ---
Date/Time of Note Date/Time of Note DATE: 03/11/19 TIME: 14:59 Assessment/Plan VTE Prophylaxis Risk score (from Ns)>0 risk: 0 SCD applied (from Ns): No SCD contraindicated: other (no) Pharmacological prophylaxis: apixaban Lines/Catheters [facility] Saline Lock Urinary Cath still in place: No Assessment/Plan Assessment/Plan 38 yo woman with history of R leg DVT s/p fasciotomy and thrombectomy presents now with new abscesses and infection of that leg. 1. Recurrent right lower extremity postop infection: - Patient has a history of Three compartment fasciotomy right calf, Norberto thrombectomy right posterior tibial artery, s/p wound wac. Previous wound cultures were positive for Enterobacter cloacae, strep agalactiae group B, Corynebacterium jk. - Currently on vanco and meropenem. ID following. - CT shows two large abscesses. - s/p operative I&D and debridement on 03/09 - Postoperative PT, followup wound cultures. - She may need a staged operative procedure. - Patient is stable for med/surg floor. 2. Right lower extremity deep venous thrombosis. - Was initiated on Xarelto in October 2018, she is still taking it. Last dose just prior to admission. - Will hold for now, plan for surgical I&D and debridement. - After surgery will start therapeutic anticoagulation when okay by podiatry. 3. History of atrial septal defect. - This was seen on echocardiogram with bubble study performed in 09/2018. Previously cardiology evaluated the patient and did not recommend shunt closure. 4. History of iron-deficiency anemia. Hemoglobin stable. 5. History of prediabetes, last A1c was 5.6. Diabetic diet 6. DVT and GI prophylaxis: SCDs, no GI prophylaxis Result Diagram: 03/11/19 0455 03/11/19 0455 Subjective 24 Hr Interval Summary Free Text/Dictation No acute overnight events. The patient does report yesterday and today she has some pleuritic R lower chest pain, especially with deep inspiration. No cough. No palpitations. Exam/Review of Systems Exam Vitals Vital Signs Date Temp Pulse Resp B/P (MAP) Pulse Ox O2 O2 Flow FiO2 Time Delivery Rate 03/11/19 97.9 80 18 103/62 98 11:50 (76) 03/11/19 Room Air 04:00 03/10/19 2.0 21:00 Intake and Output 03/10/19 03/10/19 03/11/19 1515:00 23:00 07:00 IntakeIntake Total 560 ml 700 ml 100 ml BalanceBalance 560 ml 700 ml 100 ml Exam General: Patient is well-developed well-nourished HEENT: Atraumatic, normocephalic. The pupils are equal, round and reactive. Extraocular motor are intact Neck: Supple with full range of motion. No rigidity or meningismus Chest: Nontender Lungs: Clear to auscultation bilaterally no crackles rales or wheezing Heart: Normal S1-S2, Regular rhythm and rate. No murmur, S3, or S4 Abdomen: Soft , nontender, nondistended , bowel sounds are present. No guarding no rebound tenderness , No masses or organomegaly. No costovertebral temporal angle mass Extremities: Right lower extremity: Fasciotomy scars present, dressings were changed and are currently clean dry and intact. Patient's pulses are present, she is able to wiggle her toes, skin is warm to touch. Results Results 24hrs Laboratory Tests Test 03/10/19 16:36 03/11/19 04:55 03/11/19 05:43 Troponin I < 0.012 White Blood Count 11.0 H Red Blood Count 3.87 L Hemoglobin 10.3 L Hematocrit 32.4 L Mean Corpuscular Volume 83.7 Mean Corpuscular Hemoglobin 26.6 L Mean Corpuscular Hemoglobin Concent 31.8 L Red Cell Distribution Width 17.2 H Platelet Count 391 Mean Platelet Volume 10.4 Immature Granulocytes % 0.500 H Neutrophils % 64.2 Lymphocytes % 19.2 Monocytes % 7.5 Eosinophils % 7.7 H Basophils % 0.9 Nucleated Red Blood Cells % 0.0 Immature Granulocytes # 0.060 H Neutrophils # 7.1 Lymphocytes # 2.1 Monocytes # 0.8 Eosinophils # 0.9 H Basophils # 0.1 Nucleated Red Blood Cells # 0.0 Sodium Level 140 Potassium Level 4.1 Chloride Level 103 Carbon Dioxide Level 29 Anion Gap 8 Blood Urea Nitrogen 13 Creatinine 0.58 Est Glomerular Filtrat Rate mL/min > 60 Glucose Level 114 Calcium Level 9.3 Total Bilirubin 0.3 Direct Bilirubin 0.00 Indirect Bilirubin 0.3 Aspartate Amino Transf (AST/SGOT) 36 Alanine Aminotransferase (ALT/SGPT) 25 Alkaline Phosphatase 124 H Total Protein 7.9 Albumin 3.7 Globulin 4.20 H Albumin/Globulin Ratio 0.88 Erythrocyte Sedimentation Rate 92 H C-Reactive Protein 5.4 H Medications Medication Current Medications IV Flush (NS 3 ml) 3 ml PER PROTOCOL IV ; Start 03/07/19 at 20:00 Ondansetron HCl (Zofran Inj) 4 mg Q6H PRN IV NAUSEA/VOMITING Last administered on 03/11/19 08:58; Admin Dose 4 MG; Start 03/07/19 at 20:00 Acetaminophen (Tylenol Tab) 650 mg Q6H PRN PO .PAIN 1-3 OR TEMP; Start 03/07/19 at 20:00 Acetaminophen/ Hydrocodone Bitart ([place] (5/325)) 1 tab Q6H PRN PO .MOD PAIN 4- 6 Last administered on 03/11/19 09:05; Admin Dose 1 TAB; Start 03/07/19 at 20:00 Hydromorphone HCl (Dilaudid) 0.5 mg Q4H PRN IV .SEVERE PAIN 7-10 Last administered on 03/11/19at 14:34; Admin Dose 0.5 MG; Start 03/07/19 at 20:00 Docusate Sodium (Colace) 100 mg Q12H PRN PO .CONSTIPATION; Start 03/07/19 at 20:00 Bisacodyl (Dulcolax) 5 mg DAILY PRN PO .CONSTIPATION; Start 03/07/19 at 20:00 Enoxaparin Sodium (Lovenox) 40 mg DAILY SC Last administered on 03/11/19at 08:44; Admin Dose 40 MG; Start 03/08/19 at 09:00; Status Hold Ascorbic Acid (Vitamin C) 500 mg DAILY PO Last administered on 03/11/19 08:42; Admin Dose 500 MG; Start 03/08/19 at 09:00 Cholecalciferol (Vitamin D) 2,000 unit DAILY PO Last administered on 03/11/19 08:42; Admin Dose 2,000 UNIT; Start 03/08/19 at 09:00 Famotidine (Pepcid) 20 mg DAILY PO Last administered on 03/11/19 08:42; Admin Dose 20 MG; Start 03/08/19 at 09:00 Lactobacillus Acidophilus/ Rhamnosus (Culturelle) 1 cap BID PO Last administered on 03/11/19 08:52; Admin Dose 1 CAP; Start 03/08/19 at 09:00 Multivitamins/ Minerals (Theragran-M) 1 tab DAILY PO Last administered on 03/11/19 08:42; Admin Dose 1 TAB; Start 03/08/19 at 09:00 Senna (Senokot) 1 tab BID PO Last administered on 03/11/19 08:42; Admin Dose 1 TAB; Start 03/08/19 at 09:00 Zinc Sulfate (Zinc Sulfate) 220 mg DAILY PO Last administered on 03/11/19 08:42; Admin Dose 220 MG; Start 03/08/19 at 11:00 Levofloxacin (Levaquin) 750 mg DAILY@06 PO Last administered on 03/11/19 04:47; Admin Dose 750 MG; Start 03/10/19 at 06:00 Vancomycin HCl (Vanco Iv Per Pharmacy) VANCOMYCIN PER PHARMACY PER PROTOCOL XX ; Start 03/10/19 at 11:00 Vancomycin HCl 100 ml @ 100 mls/hr Q8H IVPB Last administered on 03/11/19at 12:08; Admin Dose 100 MLS/HR; Start 03/10/19 at 12:00 Apixaban (Eliquis) 5 mg BID PO ; Start 03/11/19 at 21:00 JUVE SOLIMAN MD Mar 11, 2019 15:10
[2019-03-11 15:44] VITALS: BP 106/65; PULSE 78; RESP 18
[2019-03-11 20:36] VITALS: BP 102/60; PULSE 85; RESP 18
[2019-03-11] MEDS: APIXABAN 5 MG TABLET PO SCH (21:24)
[2019-03-12] VITALS (7 sets, daily range): BP systolic 90–104; BP diastolic 52–64; PULSE 72–80; RESP 16–18
[2019-03-12] MEDS: HYDROmorphONE 0.5 MG/0.5 ML SYG IV PRN ×5 (03:47→20:55)
[2019-03-12] MEDS: VANCOMYCIN 500 MG (PMX) 100 ML IVPB SCH ×2 (04:42→12:46)
[2019-03-12] MEDS: LEVOFLOXACIN 750 MG TABLET PO SCH (05:12)
[2019-03-12] MEDS: HYDROCODONE/APAP (5/325) TAB PO PRN ×3 (05:12→19:59)
[2019-03-12] MEDS: ONDANSETRON 4 MG INJ IV PRN (08:23)
[2019-03-12] MEDS: MULTIVITAMINS/MINERALS TAB PO SCH (08:24)
[2019-03-12] MEDS: ZINC SULFATE 220 MG CAP PO SCH (08:24)
[2019-03-12] MEDS: APIXABAN 5 MG TABLET PO SCH ×2 (08:24→20:55)
[2019-03-12] MEDS: CHOLECALCIFEROL 2,000 UNIT CAP PO SCH (08:24)
[2019-03-12] MEDS: FAMOTIDINE 20 MG TAB PO SCH (08:24)
[2019-03-12] MEDS: ASCORBIC ACID 500 MG TAB PO SCH (08:24)
[2019-03-12] MEDS: LACTOBACILLUS RHAMNOSUS CAP PO SCH ×2 (08:25→20:55)
[2019-03-12] MEDS: SENNA TAB PO SCH ×2 (08:25→20:55)
--- NOTE | 2019-03-12 12:07 | PN ---
Date/Time of Note Date/Time of Note DATE: 03/12/19 TIME: 12:06 Assessment/Plan VTE Prophylaxis Risk score (from Nsg)>0 risk: 4 Pharmacological prophylaxis: apixaban Lines/Catheters IV Catheter Type (from Nrsg): Saline Lock Urinary Cath still in place: No Assessment/Plan Hospital Course 38 yo woman with history of R leg DVT s/p fasciotomy and thrombectomy presents now with new abscesses and infection of that leg. 1. Recurrent right lower extremity postop infection: - Patient has a history of Three compartment fasciotomy right calf, Norberto thrombectomy right posterior tibial artery, s/p wound wac. Previous wound cultures were positive for Enterobacter cloacae, strep agalactiae group B, Corynebacterium jk. - Currently on vanco and meropenem. ID following. - CT shows two large abscesses. - s/p operative I&D and debridement on 03/09 - Postoperative PT, followup wound cultures. - She may need a staged operative procedure. - Patient is stable for med/surg floor. 2. Right lower extremity deep venous thrombosis. - Was initiated on Xarelto in October 2018, she is still taking it. Last dose just prior to admission. - Will hold for now, plan for surgical I&D and debridement. - After surgery will start therapeutic anticoagulation when okay by podiatry. 3. History of atrial septal defect. - This was seen on echocardiogram with bubble study performed in 09/2018. Previously cardiology evaluated the patient and did not recommend shunt closure. 4. History of iron-deficiency anemia. Hemoglobin stable. 5. History of prediabetes, last A1c was 5.6. Diabetic diet 6. DVT and GI prophylaxis: SCDs, no GI prophylaxis DC planning: Continue IV antibiotics Result Diagram: 03/11/19 0455 03/11/19 0455 Subjective 24 Hr Interval Summary Musculoskeletal: back pain Exam/Review of Systems Exam Vitals Vital Signs Date Temp Pulse Resp B/P (MAP) Pulse Ox O2 O2 Flow FiO2 Time Delivery Rate 03/12/19 98.0 74 17 95/54 (68) 98 Room Air 08:39 03/10/19 2.0 21:00 Intake and Output 03/11/19 03/11/19 03/12/19 1515:00 23:00 07:00 IntakeIntake Total 400 ml 300 ml 540 ml OutputOutput Total 600 ml 1000 ml BalanceBalance -200 ml 300 ml -460 ml Constitutional: alert Respiratory: clear to auscultation Cardiovascular: regular rate and rhythm Gastrointestinal: soft; No distended Musculoskeletal: nl extremities to inspection Medications Medication Current Medications IV Flush (NS 3 ml) 3 ml PER PROTOCOL IV ; Start 03/07/19 at 20:00 Ondansetron HCl (Zofran Inj) 4 mg Q6H PRN IV NAUSEA/VOMITING Last administered on 03/12/19 08:23; Admin Dose 4 MG; Start 03/07/19 at 20:00 Acetaminophen (Tylenol Tab) 650 mg Q6H PRN PO .PAIN 1-3 OR TEMP; Start 03/07/19 at 20:00 Acetaminophen/ Hydrocodone Bitart ([place] (5/325)) 1 tab Q6H PRN PO .MOD PAIN 4- 6 Last administered on 03/12/19 05:12; Admin Dose 1 TAB; Start 03/07/19 at 20:00 Hydromorphone HCl (Dilaudid) 0.5 mg Q4H PRN IV .SEVERE PAIN 7-10 Last administered on 03/12/19 08:24; Admin Dose 0.5 MG; Start 03/07/19 at 20:00 Docusate Sodium (Colace) 100 mg Q12H PRN PO .CONSTIPATION; Start 03/07/19 at 20:00 Bisacodyl (Dulcolax) 5 mg DAILY PRN PO .CONSTIPATION; Start 03/07/19 at 20:00 Ascorbic Acid (Vitamin C) 500 mg DAILY PO Last administered on 03/12/19 08:24; Admin Dose 500 MG; Start 03/08/19 at 09:00 Cholecalciferol (Vitamin D) 2,000 unit DAILY PO Last administered on 03/12/19 08:24; Admin Dose 2,000 UNIT; Start 03/08/19 at 09:00 Famotidine (Pepcid) 20 mg DAILY PO Last administered on 03/12/19 08:24; Admin Dose 20 MG; Start 03/08/19 at 09:00 Lactobacillus Acidophilus/ Rhamnosus (Culturelle) 1 cap BID PO Last administered on 03/12/19 08:25; Admin Dose 1 CAP; Start 03/08/19 at 09:00 Multivitamins/ Minerals (Theragran-M) 1 tab DAILY PO Last administered on 03/12/19 08:24; Admin Dose 1 TAB; Start 03/08/19 at 09:00 Senna (Senokot) 1 tab BID PO Last administered on 03/12/19 08:25; Admin Dose 1 TAB; Start 03/08/19 at 09:00 Zinc Sulfate (Zinc Sulfate) 220 mg DAILY PO Last administered on 03/12/19 08:24; Admin Dose 220 MG; Start 03/08/19 at 11:00 Levofloxacin (Levaquin) 750 mg DAILY@06 PO Last administered on 03/12/19 05:12; Admin Dose 750 MG; Start 03/10/19 at 06:00 Vancomycin HCl (Vanco Iv Per Pharmacy) VANCOMYCIN PER PHARMACY PER PROTOCOL XX ; Start 03/10/19 at 11:00 Vancomycin HCl 100 ml @ 100 mls/hr Q8H IVPB Last administered on 03/12/19 04:42; Admin Dose 100 MLS/HR; Start 03/10/19 at 12:00 Apixaban (Eliquis) 5 mg BID PO Last administered on 03/12/19 08:24; Admin Dose 5 MG; Start 03/11/19 at 21:00 MAYRA GARCIA Mar 12, 2019 12:07
--- NOTE | 2019-03-12 16:40 | CONS ---
Consultation Date/Type/Reason Admit Date/Time Mar 07, 2019 at 22:10 Initial Consult Date SUBJECTIVE: Pt is resting in bed, afebrile, looks comfortable. VS: stable T: 98.3 LABS: reviewed. MICROBIOLOGY: Blood cultures remain negative. Right lower extremity wound culture growing Enterobacter cloaca, Corynebacterium group JK and MRSA AFB SMEAR Final ACID FAST BACILLI NONE SEEN AFB CULTURE Preliminary MYCOBACTERIOLOGY CULTURES ARE HELD 6 TO 8 WEEKS. ANY SIGNIFICANT GROWTH WILL BE REPORTED WHEN DETECTED. INTERIM REPORTS ARE NOT ISSUED. RIGHT LEG: GRAM STAIN Final EPITHELIAL CELLS 1+ . NO ORGANISM SEEN TISSUE (BIOPSY) CULTURE Preliminary Organism 1 CORYNEBACTER JEIKEIUM (GRP JK) QUANTITY SCANT GROWTH Organism 2 GRAM NEGATIVE ORION QUANTITY RARE CORYNEBACTERIUM JK: Clinical susceptibiltiy testing standard for this organism have not been established. However, this organism has demonstrated in vitro growth inhibition to the following chemotherapeutic agents listed as susceptible. C JEIKEIUM Zone Size RX --------- --- * AMPICILLIN R * CEFAZOLIN R * CEFOTAXIME R * CEFUROXIME R * CIPROFLOXACIN R * CLINDAMYCIN R * ERYTHROMYCIN R * PENICILLIN R * VANCOMYCIN S Extremity venous study revealed no DVT. Arterial study showed 30% to 49% stenosis of right common femoral artery. Chest x-ray on admission revealed no pneumonia. ANTIMICROBIALS: Levaquin and Vanco PHYSICAL EXAMINATION: GENERAL: Well-developed, well-nourished 38-year-old woman who is alert, in no distress. HEENT: Head atraumatic, normocephalic. Sclerae anicteric. Buccal mucosa pink. NECK: Supple. CHEST: Rise symmetrical. Breath sounds diminished to bases. HEART: S1, S2. ABDOMEN: Soft, bowel sounds present. EXTREMITIES: Right lower extremity Gage wrapped. ASSESSMENT: 1. Right lower extremity cellulitis with abscess, status post I&D. 2. Diabetes. 3. Diabetic neuropathy. 4. History of right lower extremity deep venous thrombosis, ischemic compartment syndrome, status post fasciotomy in 10/2018. 5. History of atrial septal defect. PLAN: The patient remains stable. Continue abx, wound care per podiatry, may need staged surgical debridements. Date/Time of Note DATE: 03/12/19 TIME: 16:37 Exam/Review of Systems Exam Vitals Vital Signs Date Temp Pulse Resp B/P (MAP) Pulse Ox O2 O2 Flow FiO2 Time Delivery Rate 03/12/19 98.3 72 18 104/59 97 Room Air 15:43 (74) 03/10/19 2.0 21:00 Intake and Output 03/11/19 03/11/19 03/12/19 1515:00 23:00 07:00 IntakeIntake Total 400 ml 300 ml 540 ml OutputOutput Total 600 ml 1000 ml BalanceBalance -200 ml 300 ml -460 ml Results Result Diagram: 03/11/19 0455 03/11/19 0455 Medications Medication Current Medications IV Flush (NS 3 ml) 3 ml PER PROTOCOL IV ; Start 03/07/19 at 20:00 Ondansetron HCl (Zofran Inj) 4 mg Q6H PRN IV NAUSEA/VOMITING Last administered on 03/12/19at 08:23; Admin Dose 4 MG; Start 03/07/19 at 20:00 Acetaminophen (Tylenol Tab) 650 mg Q6H PRN PO .PAIN 1-3 OR TEMP; Start 03/07/19 at 20:00 Acetaminophen/ Hydrocodone Bitart ([place] (5/325)) 1 tab Q6H PRN PO .MOD PAIN 4- 6 Last administered on 03/12/19at 15:34; Admin Dose 1 TAB; Start 03/07/19 at 20:00 Hydromorphone HCl (Dilaudid) 0.5 mg Q4H PRN IV .SEVERE PAIN 7-10 Last administered on 03/12/19at 12:45; Admin Dose 0.5 MG; Start 03/07/19 at 20:00 Docusate Sodium (Colace) 100 mg Q12H PRN PO .CONSTIPATION; Start 03/07/19 at 20:00 Bisacodyl (Dulcolax) 5 mg DAILY PRN PO .CONSTIPATION; Start 03/07/19 at 20:00 Ascorbic Acid (Vitamin C) 500 mg DAILY PO Last administered on 03/12/19 08:24; Admin Dose 500 MG; Start 03/08/19 at 09:00 Cholecalciferol (Vitamin D) 2,000 unit DAILY PO Last administered on 03/12/19 08:24; Admin Dose 2,000 UNIT; Start 03/08/19 at 09:00 Famotidine (Pepcid) 20 mg DAILY PO Last administered on 03/12/19 08:24; Admin Dose 20 MG; Start 03/08/19 at 09:00 Lactobacillus Acidophilus/ Rhamnosus (Culturelle) 1 cap BID PO Last administered on 03/12/19 08:25; Admin Dose 1 CAP; Start 03/08/19 at 09:00 Multivitamins/ Minerals (Theragran-M) 1 tab DAILY PO Last administered on 03/12/19 08:24; Admin Dose 1 TAB; Start 03/08/19 at 09:00 Senna (Senokot) 1 tab BID PO Last administered on 03/12/19 08:25; Admin Dose 1 TAB; Start 03/08/19 at 09:00 Zinc Sulfate (Zinc Sulfate) 220 mg DAILY PO Last administered on 03/12/19 08:24; Admin Dose 220 MG; Start 03/08/19 at 11:00 Levofloxacin (Levaquin) 750 mg DAILY@06 PO Last administered on 03/12/19 05:12; Admin Dose 750 MG; Start 03/10/19 at 06:00 Vancomycin HCl (Vanco Iv Per Pharmacy) VANCOMYCIN PER PHARMACY PER PROTOCOL XX ; Start 03/10/19 at 11:00 Vancomycin HCl 100 ml @ 100 mls/hr Q8H IVPB Last administered on 03/12/19at 12:46; Admin Dose 100 MLS/HR; Start 03/10/19 at 12:00 Apixaban (Eliquis) 5 mg BID PO Last administered on 03/12/19at 08:24; Admin Dose 5 MG; Start 03/11/19 at 21:00 Miscellaneous Information (*Rx Drug Level Order Reminder*) VANCO TROUGH @ 1,100 1100 ONCE XX ; Start 03/13/19 at 11:00; Stop 03/13/19 at 11:01 RANDALL PORTER Mar 12, 2019 16:40
[2019-03-12] MEDS: VANCOMYCIN 750 MG (PMX) 250 ML IVPB SCH (21:28)
[2019-03-13] MEDS: HYDROmorphONE 0.5 MG/0.5 ML SYG IV PRN ×6 (00:54→22:38)
[2019-03-13 04:00] VITALS: BP 99/54; PULSE 75; RESP 18
[2019-03-13] MEDS: VANCOMYCIN 750 MG (PMX) 250 ML IVPB SCH ×3 (05:33→21:40)
[2019-03-13] MEDS: LEVOFLOXACIN 750 MG TABLET PO SCH (05:33)
[2019-03-13 07:34] VITALS: BP 102/61; PULSE 74; RESP 18
[2019-03-13] MEDS: LACTOBACILLUS RHAMNOSUS CAP PO SCH ×2 (08:26→20:28)
[2019-03-13] MEDS: FAMOTIDINE 20 MG TAB PO SCH (08:26)
[2019-03-13] MEDS: APIXABAN 5 MG TABLET PO SCH ×2 (08:26→20:28)
[2019-03-13] MEDS: MULTIVITAMINS/MINERALS TAB PO SCH (08:27)
[2019-03-13] MEDS: SENNA TAB PO SCH ×2 (08:27→20:28)
[2019-03-13] MEDS: CHOLECALCIFEROL 2,000 UNIT CAP PO SCH (08:27)
[2019-03-13] MEDS: ASCORBIC ACID 500 MG TAB PO SCH (08:27)
[2019-03-13] MEDS: ZINC SULFATE 220 MG CAP PO SCH (08:27)
[2019-03-13] MEDS: HYDROCODONE/APAP (5/325) TAB PO PRN ×2 (08:28→16:10)
[2019-03-13 12:04] VITALS: BP 100/55; PULSE 81; RESP 18
--- NOTE | 2019-03-13 13:30 | CONS ---
Consultation Date/Type/Reason Admit Date/Time Mar 07, 2019 at 22:10 Initial Consult Date SUBJECTIVE: Pt is resting in bed, afebrile, looks comfortable. Denies pain in Rt LL. S/P Three compartment fasciotomy right calf and current cellulitis. S/P Recent debridement 03/09/19 VS: stable T: 98.0 LABS: reviewed. WBC- 9.7 MICROBIOLOGY: Blood cultures remain negative. Right lower extremity wound culture growing Enterobacter cloaca, Corynebacterium group JK and MRSA AFB SMEAR Final ACID FAST BACILLI NONE SEEN AFB CULTURE Preliminary MYCOBACTERIOLOGY CULTURES ARE HELD 6 TO 8 WEEKS. ANY SIGNIFICANT GROWTH WILL BE REPORTED WHEN DETECTED. INTERIM REPORTS ARE NOT ISSUED. RIGHT LEG: GRAM STAIN Final EPITHELIAL CELLS 1+ . NO ORGANISM SEEN TISSUE (BIOPSY) CULTURE Preliminary Organism 1 CORYNEBACTER ADOLFOIKEIUM (GRP JK) QUANTITY SCANT GROWTH Organism 2 GRAM NEGATIVE ORION QUANTITY RARE CORYNEBACTERIUM JK: Clinical susceptibiltiy testing standard for this organism have not been established. However, this organism has demonstrated in vitro growth inhibition to the following chemotherapeutic agents listed as susceptible. C JEIKEIUM Zone Size RX --------- --- * AMPICILLIN R * CEFAZOLIN R * CEFOTAXIME R * CEFUROXIME R * CIPROFLOXACIN R * CLINDAMYCIN R * ERYTHROMYCIN R * PENICILLIN R * VANCOMYCIN S Extremity venous study revealed no DVT. Arterial study showed 30% to 49% stenosis of right common femoral artery. Chest x-ray on admission revealed no pneumonia. ANTIMICROBIALS: Levaquin and Vanco PHYSICAL EXAMINATION: GENERAL: Well-developed, well-nourished 38-year-old woman who is alert, in no distress. HEENT: Head atraumatic, normocephalic. Sclerae anicteric. Buccal mucosa pink. NECK: Supple. CHEST: Rise symmetrical. Breath sounds diminished to bases. HEART: S1, S2. ABDOMEN: Soft, bowel sounds present. EXTREMITIES: Right lower extremity Gage wrapped. ASSESSMENT: 1. Right lower extremity cellulitis with abscess, status post I&D. 2. Diabetes. 3. Diabetic neuropathy. 4. History of right lower extremity deep venous thrombosis, ischemic com partment syndrome, status post fasciotomy in 10/2018. 5. History of atrial septal defect. PLAN: The patient remains stable. Continue current IV abx. Wound care. May need staged surgical dbridements. Date/Time of Note DATE: 03/13/19 TIME: 13:27 Exam/Review of Systems Exam Vitals Vital Signs Date Temp Pulse Resp B/P (MAP) Pulse Ox O2 O2 Flow FiO2 Time Delivery Rate 03/13/19 98.0 81 18 100/55 98 Room Air 12:04 (70) 03/10/19 2.0 21:00 Intake and Output 03/12/19 03/12/19 03/13/19 1515:00 23:00 07:00 IntakeIntake Total 100 ml 400 ml 600 ml BalanceBalance 100 ml 400 ml 600 ml Results Result Diagram: 03/13/19 0521 03/13/19 0521 Results 24hrs Laboratory Tests Test 03/12/19 20:10 03/13/19 05:21 Vancomycin Level Trough 9.7 L White Blood Count 9.7 Red Blood Count 3.82 L Hemoglobin 10.0 L Hematocrit 31.8 L Mean Corpuscular Volume 83.2 Mean Corpuscular Hemoglobin 26.2 L Mean Corpuscular Hemoglobin Concent 31.4 L Red Cell Distribution Width 17.2 H Platelet Count 410 Mean Platelet Volume 10.6 H Immature Granulocytes % 0.700 H Neutrophils % 61.1 Lymphocytes % 23.3 Monocytes % 6.0 Eosinophils % 7.9 H Basophils % 1.0 Nucleated Red Blood Cells % 0.0 Immature Granulocytes # 0.070 H Neutrophils # 5.9 Lymphocytes # 2.3 Monocytes # 0.6 Eosinophils # 0.8 H Basophils # 0.1 Nucleated Red Blood Cells # 0.0 Sodium Level 140 Potassium Level 3.7 Chloride Level 104 Carbon Dioxide Level 28 Anion Gap 8 Blood Urea Nitrogen 19 Creatinine 0.62 Est Glomerular Filtrat Rate mL/min > 60 Glucose Level 102 Calcium Level 9.4 Medications Medication Current Medications IV Flush (NS 3 ml) 3 ml PER PROTOCOL IV ; Start 03/07/19 at 20:00 Ondansetron HCl (Zofran Inj) 4 mg Q6H PRN IV NAUSEA/VOMITING Last administered on 03/12/19 08:23; Admin Dose 4 MG; Start 03/07/19 at 20:00 Acetaminophen (Tylenol Tab) 650 mg Q6H PRN PO .PAIN 1-3 OR TEMP; Start 03/07/19 at 20:00 Acetaminophen/ Hydrocodone Bitart ([place] (5/325)) 1 tab Q6H PRN PO .MOD PAIN 4- 6 Last administered on 03/13/19 08:28; Admin Dose 1 TAB; Start 03/07/19 at 20:00 Hydromorphone HCl (Dilaudid) 0.5 mg Q4H PRN IV .SEVERE PAIN 7-10 Last administered on 03/13/19 10:39; Admin Dose 0.5 MG; Start 03/07/19 at 20:00 Docusate Sodium (Colace) 100 mg Q12H PRN PO .CONSTIPATION; Start 03/07/19 at 20:00 Bisacodyl (Dulcolax) 5 mg DAILY PRN PO .CONSTIPATION; Start 03/07/19 at 20:00 Ascorbic Acid (Vitamin C) 500 mg DAILY PO Last administered on 03/12/19 08:24; Admin Dose 500 MG; Start 03/08/19 at 09:00 Cholecalciferol (Vitamin D) 2,000 unit DAILY PO Last administered on 03/12/19 08:24; Admin Dose 2,000 UNIT; Start 03/08/19 at 09:00 Famotidine (Pepcid) 20 mg DAILY PO Last administered on 03/13/19 08:26; Admin Dose 20 MG; Start 03/08/19 at 09:00 Lactobacillus Acidophilus/ Rhamnosus (Culturelle) 1 cap BID PO Last administered on 03/13/19 08:26; Admin Dose 1 CAP; Start 03/08/19 at 09:00 Multivitamins/ Minerals (Theragran-M) 1 tab DAILY PO Last administered on 03/13/19 08:27; Admin Dose 1 TAB; Start 03/08/19 at 09:00 Senna (Senokot) 1 tab BID PO Last administered on 03/13/19 08:27; Admin Dose 1 TAB; Start 03/08/19 at 09:00 Zinc Sulfate (Zinc Sulfate) 220 mg DAILY PO Last administered on 03/13/19 08:27; Admin Dose 220 MG; Start 03/08/19 at 11:00 Levofloxacin (Levaquin) 750 mg DAILY@06 PO Last administered on 03/13/19 05:33; Admin Dose 750 MG; Start 03/10/19 at 06:00 Vancomycin HCl (Vanco Iv Per Pharmacy) VANCOMYCIN PER PHARMACY PER PROTOCOL XX ; Start 03/10/19 at 11:00 Apixaban (Eliquis) 5 mg BID PO Last administered on 03/13/19 08:26; Admin Dose 5 MG; Start 03/11/19 at 21:00 Vancomycin/Sodium Chloride 250 ml @ 125 mls/hr Q8H IVPB Last administered on 03/13/19 05:33; Admin Dose 125 MLS/HR; Start 03/12/19 at 21:30 RANDALL PORTER Mar 13, 2019 13:30
--- NOTE | 2019-03-13 14:19 | PN ---
Date/Time of Note Date/Time of Note DATE: 03/13/19 TIME: 14:18 Assessment/Plan VTE Prophylaxis Risk score (from Nsg)>0 risk: 5 Pharmacological prophylaxis: NA/contraindicated Pharm contraindication: low risk/ambulating Lines/Catheters IV Catheter Type (from Nrsg): Peripheral IV Urinary Cath still in place: No Assessment/Plan Hospital Course 38 yo woman with history of R leg DVT s/p fasciotomy and thrombectomy presents now with new abscesses and infection of that leg. 1. Recurrent right lower extremity postop infection: - Patient has a history of Three compartment fasciotomy right calf, Norberto thrombectomy right posterior tibial artery, s/p wound wac. Previous wound cultures were positive for Enterobacter cloacae, strep agalactiae group B, Corynebacterium jk. - Currently on vanco and meropenem. ID following. - CT shows two large abscesses. - s/p operative I&D and debridement on 03/09 - Postoperative PT, followup wound cultures. - She may need a staged operative procedure. - Patient is stable for med/surg floor. 2. Right lower extremity deep venous thrombosis. - Was initiated on Xarelto in October 2018, she is still taking it. Last dose just prior to admission. - Will hold for now, plan for surgical I&D and debridement. - After surgery will start therapeutic anticoagulation when okay by podiatry. 3. History of atrial septal defect. - This was seen on echocardiogram with bubble study performed in 09/2018. Previously cardiology evaluated the patient and did not recommend shunt closure. 4. History of iron-deficiency anemia. Hemoglobin stable. 5. History of prediabetes, last A1c was 5.6. Diabetic diet 6. DVT and GI prophylaxis: SCDs, no GI prophylaxis DC planning: Continue IV antibiotics Result Diagram: 03/13/1952003/13/19520 Results 24hrs Laboratory Tests Test 03/12/19 20:10 03/13/19 05:21 Vancomycin Level Trough 9.7 L White Blood Count 9.7 Red Blood Count 3.82 L Hemoglobin 10.0 L Hematocrit 31.8 L Mean Corpuscular Volume 83.2 Mean Corpuscular Hemoglobin 26.2 L Mean Corpuscular Hemoglobin Concent 31.4 L Red Cell Distribution Width 17.2 H Platelet Count 410 Mean Platelet Volume 10.6 H Immature Granulocytes % 0.700 H Neutrophils % 61.1 Lymphocytes % 23.3 Monocytes % 6.0 Eosinophils % 7.9 H Basophils % 1.0 Nucleated Red Blood Cells % 0.0 Immature Granulocytes # 0.070 H Neutrophils # 5.9 Lymphocytes # 2.3 Monocytes # 0.6 Eosinophils # 0.8 H Basophils # 0.1 Nucleated Red Blood Cells # 0.0 Sodium Level 140 Potassium Level 3.7 Chloride Level 104 Carbon Dioxide Level 28 Anion Gap 8 Blood Urea Nitrogen 19 Creatinine 0.62 Est Glomerular Filtrat Rate mL/min > 60 Glucose Level 102 Calcium Level 9.4 Subjective 24 Hr Interval Summary Constitutional: no complaints Exam/Review of Systems Exam Vitals Vital Signs Date Temp Pulse Resp B/P (MAP) Pulse Ox O2 O2 Flow FiO2 Time Delivery Rate 03/13/19 98.0 81 18 100/55 98 Room Air 12:04 (70) 03/10/19 2.0 21:00 Intake and Output 03/12/19 03/12/19 03/13/19 1515:00 23:00 07:00 IntakeIntake Total 100 ml 400 ml 600 ml BalanceBalance 100 ml 400 ml 600 ml Constitutional: alert, oriented Respiratory: clear to auscultation Cardiovascular: regular rate and rhythm Gastrointestinal: soft Musculoskeletal: No nl extremities to inspection Results Results 24hrs Laboratory Tests Test 03/12/19 20:10 03/13/19 05:21 Vancomycin Level Trough 9.7 L White Blood Count 9.7 Red Blood Count 3.82 L Hemoglobin 10.0 L Hematocrit 31.8 L Mean Corpuscular Volume 83.2 Mean Corpuscular Hemoglobin 26.2 L Mean Corpuscular Hemoglobin Concent 31.4 L Red Cell Distribution Width 17.2 H Platelet Count 410 Mean Platelet Volume 10.6 H Immature Granulocytes % 0.700 H Neutrophils % 61.1 Lymphocytes % 23.3 Monocytes % 6.0 Eosinophils % 7.9 H Basophils % 1.0 Nucleated Red Blood Cells % 0.0 Immature Granulocytes # 0.070 H Neutrophils # 5.9 Lymphocytes # 2.3 Monocytes # 0.6 Eosinophils # 0.8 H Basophils # 0.1 Nucleated Red Blood Cells # 0.0 Sodium Level 140 Potassium Level 3.7 Chloride Level 104 Carbon Dioxide Level 28 Anion Gap 8 Blood Urea Nitrogen 19 Creatinine 0.62 Est Glomerular Filtrat Rate mL/min > 60 Glucose Level 102 Calcium Level 9.4 Medications Medication Current Medications IV Flush (NS 3 ml) 3 ml PER PROTOCOL IV ; Start 03/07/19 at 20:00 Ondansetron HCl (Zofran Inj) 4 mg Q6H PRN IV NAUSEA/VOMITING Last administered on 03/12/19 08:23; Admin Dose 4 MG; Start 03/07/19 at 20:00 Acetaminophen (Tylenol Tab) 650 mg Q6H PRN PO .PAIN 1-3 OR TEMP; Start 03/07/19 at 20:00 Acetaminophen/ Hydrocodone Bitart ([place] (5/325)) 1 tab Q6H PRN PO .MOD PAIN 4- 6 Last administered on 03/13/19 08:28; Admin Dose 1 TAB; Start 03/07/19 at 20: 00 Hydromorphone HCl (Dilaudid) 0.5 mg Q4H PRN IV .SEVERE PAIN 7-10 Last administered on 03/13/19 10:39; Admin Dose 0.5 MG; Start 03/07/19 at 20:00 Docusate Sodium (Colace) 100 mg Q12H PRN PO .CONSTIPATION; Start 03/07/19 at 20:00 Bisacodyl (Dulcolax) 5 mg DAILY PRN PO .CONSTIPATION; Start 03/07/19 at 20:00 Ascorbic Acid (Vitamin C) 500 mg DAILY PO Last administered on 03/12/19 08:24; Admin Dose 500 MG; Start 03/08/19 at 09:00 Cholecalciferol (Vitamin D) 2,000 unit DAILY PO Last administered on 03/12/19 08:24; Admin Dose 2,000 UNIT; Start 03/08/19 at 09:00 Famotidine (Pepcid) 20 mg DAILY PO Last administered on 03/13/19 08:26; Admin Dose 20 MG; Start 03/08/19 at 09:00 Lactobacillus Acidophilus/ Rhamnosus (Culturelle) 1 cap BID PO Last administered on 03/13/19 08:26; Admin Dose 1 CAP; Start 03/08/19 at 09:00 Multivitamins/ Minerals (Theragran-M) 1 tab DAILY PO Last administered on 03/13/19 08:27; Admin Dose 1 TAB; Start 03/08/19 at 09:00 Senna (Senokot) 1 tab BID PO Last administered on 03/13/19 08:27; Admin Dose 1 TAB; Start 03/08/19 at 09:00 Zinc Sulfate (Zinc Sulfate) 220 mg DAILY PO Last administered on 03/13/19 08:27; Admin Dose 220 MG; Start 03/08/19 at 11:00 Levofloxacin (Levaquin) 750 mg DAILY@06 PO Last administered on 03/13/19 05:33; Admin Dose 750 MG; Start 03/10/19 at 06:00 Vancomycin HCl (Vanco Iv Per Pharmacy) VANCOMYCIN PER PHARMACY PER PROTOCOL XX ; Start 03/10/19 at 11:00 Apixaban (Eliquis) 5 mg BID PO Last administered on 03/13/19 08:26; Admin Dose 5 MG; Start 03/11/19 at 21:00 Vancomycin/Sodium Chloride 250 ml @ 125 mls/hr Q8H IVPB Last administered on 03/13/19 05:33; Admin Dose 125 MLS/HR; Start 03/12/19 at 21:30 MAYRA GARCIA Mar 13, 2019 14:19
[2019-03-13 15:51] VITALS: BP 100/56; PULSE 87; RESP 18
[2019-03-13 16:40] VITALS: BP 110/65; PULSE 85; RESP 18
[2019-03-13 20:09] VITALS: BP 98/63; PULSE 81; RESP 16
[2019-03-13] MEDS: NACL 0.9% 3 ML SYG IV SCH (22:38)
[2019-03-14 01:45] VITALS: BP 100/57; PULSE 82; RESP 18
[2019-03-14] MEDS: HYDROmorphONE 0.5 MG/0.5 ML SYG IV PRN ×5 (02:26→21:05)
[2019-03-14] MEDS: LEVOFLOXACIN 750 MG TABLET PO SCH (05:45)
[2019-03-14] MEDS: VANCOMYCIN 750 MG (PMX) 250 ML IVPB SCH ×3 (06:24→21:06)
[2019-03-14] MEDS: ONDANSETRON 4 MG INJ IV PRN (06:46)
[2019-03-14] MEDS: NACL 0.9% 3 ML SYG IV SCH ×2 (06:47→16:10)
[2019-03-14 08:00] VITALS: BP 100/59; PULSE 82; RESP 20
[2019-03-14] MEDS: FAMOTIDINE 20 MG TAB PO SCH (09:07)
[2019-03-14] MEDS: CHOLECALCIFEROL 2,000 UNIT CAP PO SCH (09:07)
[2019-03-14] MEDS: APIXABAN 5 MG TABLET PO SCH ×2 (09:07→20:24)
[2019-03-14] MEDS: MULTIVITAMINS/MINERALS TAB PO SCH (09:07)
[2019-03-14] MEDS: ASCORBIC ACID 500 MG TAB PO SCH (09:07)
[2019-03-14] MEDS: SENNA TAB PO SCH ×2 (09:08→20:24)
[2019-03-14] MEDS: LACTOBACILLUS RHAMNOSUS CAP PO SCH ×2 (09:08→20:24)
[2019-03-14] MEDS: ZINC SULFATE 220 MG CAP PO SCH (09:15)
[2019-03-14] MEDS: HYDROCODONE/APAP (5/325) TAB PO PRN ×2 (10:11→23:26)
--- NOTE | 2019-03-14 12:43 | PN ---
Date/Time of Note Date/Time of Note DATE: 03/14/19 TIME: 12:41 Assessment/Plan VTE Prophylaxis Risk score (from Ns)>0 risk: 7 SCD applied (from Ns): Yes Pharmacological prophylaxis: apixaban Lines/Catheters [facility] (from [facility] [place] Urinary Cath still in place: No Assessment/Plan Hospital Course 38 yo woman with history of R leg DVT s/p fasciotomy and thrombectomy presents now with new abscesses and infection of that leg. 1. Recurrent right lower extremity postop infection: - Patient has a history of Three compartment fasciotomy right calf, Norberto thrombectomy right posterior tibial artery, s/p wound wac. Previous wound cultures were positive for Enterobacter cloacae, strep agalactiae group B, Corynebacterium jk. - Currently on vanco and meropenem. ID following. - CT shows two large abscesses. - s/p operative I&D and debridement on 03/09 - Postoperative PT, followup wound cultures. - She may need a staged operative procedure. - Patient is stable for med/surg floor. 2. Right lower extremity deep venous thrombosis. - Was initiated on Xarelto in October 2018, she is still taking it. Last dose just prior to admission. - Will hold for now, plan for surgical I&D and debridement. - After surgery will start therapeutic anticoagulation when okay by podiatry. 3. History of atrial septal defect. - This was seen on echocardiogram with bubble study performed in 09/2018. Previously cardiology evaluated the patient and did not recommend shunt closure. 4. History of iron-deficiency anemia. Hemoglobin stable. 5. History of prediabetes, last A1c was 5.6. Diabetic diet 6. DVT and GI prophylaxis: Eliquis, no GI prophylaxis DC planning: Continue IV antibiotics, patient will need staged debridement Result Diagram: 03/13/1952003/13/19520 Results 24hrs Laboratory Tests Test 03/14/19 04:31 Vancomycin Level Trough 15.2 Subjective 24 Hr Interval Summary Musculoskeletal: back pain Exam/Review of Systems Exam Vitals Vital Signs Date Temp Pulse Resp B/P (MAP) Pulse Ox O2 O2 Flow FiO2 Time Delivery Rate 03/14/19 98.4 82 20 100/59 97 08:00 (73) 03/14/19 Room Air 01:45 03/10/19 2.0 21:00 Intake and Output 03/13/19 03/13/19 03/14/19 1515:00 23:00 07:00 IntakeIntake Total 200 ml 690 ml 250 ml BalanceBalance 200 ml 690 ml 250 ml Constitutional: alert, oriented Respiratory: clear to auscultation Cardiovascular: regular rate and rhythm Gastrointestinal: soft; No distended Musculoskeletal: No nl extremities to inspection Results Results 24hrs Laboratory Tests Test 03/14/19 04:31 Vancomycin Level Trough 15.2 Medications Medication Current Medications IV Flush (NS 3 ml) 3 ml PER PROTOCOL IV Last administered on 03/14/19 06:47; Admin Dose 3 ML; Start 03/07/19 at 20:00 Ondansetron HCl (Zofran Inj) 4 mg Q6H PRN IV NAUSEA/VOMITING Last administered on 03/14/19 06:46; Admin Dose 4 MG; Start 03/07/19 at 20:00 Acetaminophen (Tylenol Tab) 650 mg Q6H PRN PO .PAIN 1-3 OR TEMP; Start 03/07/19 at 20:00 Acetaminophen/ Hydrocodone Bitart ([place] (5/325)) 1 tab Q6H PRN PO .MOD PAIN 4- 6 Last administered on 03/14/19at 10:11; Admin Dose 1 TAB; Start 03/07/19 at 20:00 Hydromorphone HCl (Dilaudid) 0.5 mg Q4H PRN IV .SEVERE PAIN 7-10 Last administered on 03/14/19at 12:00; Admin Dose 0.5 MG; Start 03/07/19 at 20:00 Docusate Sodium (Colace) 100 mg Q12H PRN PO .CONSTIPATION; Start 03/07/19 at 20:00 Bisacodyl (Dulcolax) 5 mg DAILY PRN PO .CONSTIPATION; Start 03/07/19 at 20:00 Ascorbic Acid (Vitamin C) 500 mg DAILY PO Last administered on 03/14/19at 09:07; Admin Dose 500 MG; Start 03/08/19 at 09:00 Cholecalciferol (Vitamin D) 2,000 unit DAILY PO Last administered on 03/14/19 09:07; Admin Dose 2,000 UNIT; Start 03/08/19 at 09:00 Famotidine (Pepcid) 20 mg DAILY PO Last administered on 03/14/19 09:07; Admin Dose 20 MG; Start 03/08/19 at 09:00 Lactobacillus Acidophilus/ Rhamnosus (Culturelle) 1 cap BID PO Last administered on 03/14/19 09:08; Admin Dose 1 CAP; Start 03/08/19 at 09:00 Multivitamins/ Minerals (Theragran-M) 1 tab DAILY PO Last administered on 03/14/19 09:07; Admin Dose 1 TAB; Start 03/08/19 at 09:00 Senna (Senokot) 1 tab BID PO Last administered on 03/14/19 09:08; Admin Dose 1 TAB; Start 03/08/19 at 09:00 Zinc Sulfate (Zinc Sulfate) 220 mg DAILY PO Last administered on 03/14/19 09:15; Admin Dose 220 MG; Start 03/08/19 at 11:00 Levofloxacin (Levaquin) 750 mg DAILY@06 PO Last administered on 03/14/19 05:45; Admin Dose 750 MG; Start 03/10/19 at 06:00 Vancomycin HCl (Vanco Iv Per Pharmacy) VANCOMYCIN PER PHARMACY PER PROTOCOL XX ; Start 03/10/19 at 11:00 Apixaban (Eliquis) 5 mg BID PO Last administered on 03/14/19 09:07; Admin Dose 5 MG; Start 03/11/19 at 21:00 Vancomycin/Sodium Chloride 250 ml @ 125 mls/hr Q8H IVPB Last administered on 03/14/19 06:24; Admin Dose 125 MLS/HR; Start 03/12/19 at 21:30 MAYRA GARCIA Mar 14, 2019 12:43
[2019-03-14 14:33] VITALS: BP 102/62; PULSE 78; RESP 18
--- NOTE | 2019-03-14 15:29 | CONS ---
Assessment/Plan Assessment/Plan Hospital Course (Demo Recall) SUBJECTIVE: no events, looks comfortable. MICROBIOLOGY: Blood cultures remain negative. Right lower extremity wound culture growing Enterobacter cloaca, Corynebacterium group JK and MRSA Extremity venous study revealed no DVT. Arterial study showed 30% to 49% stenosis of right common femoral artery. Chest x-ray on admission revealed no pneumonia. ANTIMICROBIALS: Levaquin Vanco PHYSICAL EXAMINATION: GENERAL: Well-developed, well-nourished 38-year-old woman who is alert, in no distress. HEENT: Head atraumatic, normocephalic. Sclerae anicteric. Buccal mucosa pink. NECK: Supple. CHEST: Rise symmetrical. Breath sounds diminished to bases. HEART: S1, S2. ABDOMEN: Soft, bowel sounds present. EXTREMITIES: Right lower extremity Gage wrapped. ASSESSMENT: 1. Right lower extremity cellulitis with abscess, status post I&D. 2. Diabetes. 3. Diabetic neuropathy. 4. History of right lower extremity deep venous thrombosis, ischemic compartment syndrome, status post fasciotomy in 10/2018. 5. History of atrial septal defect. PLAN: The patient remains stable. Continue abx, wound care per podiatry Consultation Date/Type/Reason Admit Date/Time Mar 07, 2019 at 22:10 Initial Consult Date Type of Consult id Date/Time of Note DATE: 03/14/19 TIME: 15:28 Exam/Review of Systems Exam Vitals Vital Signs Date Temp Pulse Resp B/P (MAP) Pulse Ox O2 O2 Flow FiO2 Time Delivery Rate 03/14/19 98.7 78 18 102/62 97 14:33 (75) 03/14/19 Room Air 01:45 03/10/19 2.0 21:00 Intake and Output 03/13/19 03/13/19 03/14/19 1515:00 23:00 07:00 IntakeIntake Total 200 ml 690 ml 250 ml BalanceBalance 200 ml 690 ml 250 ml Results Result Diagram: 03/13/19 0503/13/19520 Results 24hrs Laboratory Tests Test 03/14/19 04:31 Vancomycin Level Trough 15.2 Medications Medication Current Medications IV Flush (NS 3 ml) 3 ml PER PROTOCOL IV Last administered on 03/14/19at 06:47; Admin Dose 3 ML; Start 03/07/19 at 20:00 Ondansetron HCl (Zofran Inj) 4 mg Q6H PRN IV NAUSEA/VOMITING Last administered on 03/14/19 06:46; Admin Dose 4 MG; Start 03/07/19 at 20:00 Acetaminophen (Tylenol Tab) 650 mg Q6H PRN PO .PAIN 1-3 OR TEMP; Start 03/07/19 at 20:00 Acetaminophen/ Hydrocodone Bitart ([place] (5/325)) 1 tab Q6H PRN PO .MOD PAIN 4- 6 Last administered on 03/14/19 10:11; Admin Dose 1 TAB; Start 03/07/19 at 20:00 Hydromorphone HCl (Dilaudid) 0.5 mg Q4H PRN IV .SEVERE PAIN 7-10 Last administered on 03/14/19 12:00; Admin Dose 0.5 MG; Start 03/07/19 at 20:00 Docusate Sodium (Colace) 100 mg Q12H PRN PO .CONSTIPATION; Start 03/07/19 at 20:00 Bisacodyl (Dulcolax) 5 mg DAILY PRN PO .CONSTIPATION; Start 03/07/19 at 20:00 Ascorbic Acid (Vitamin C) 500 mg DAILY PO Last administered on 03/14/19 09:07; Admin Dose 500 MG; Start 03/08/19 at 09:00 Cholecalciferol (Vitamin D) 2,000 unit DAILY PO Last administered on 03/14/19 09:07; Admin Dose 2,000 UNIT; Start 03/08/19 at 09:00 Famotidine (Pepcid) 20 mg DAILY PO Last administered on 03/14/19 09:07; Admin Dose 20 MG; Start 03/08/19 at 09:00 Lactobacillus Acidophilus/ Rhamnosus (Culturelle) 1 cap BID PO Last administered on 03/14/19 09:08; Admin Dose 1 CAP; Start 03/08/19 at 09:00 Multivitamins/ Minerals (Theragran-M) 1 tab DAILY PO Last administered on 03/14/19 09:07; Admin Dose 1 TAB; Start 03/08/19 at 09:00 Senna (Senokot) 1 tab BID PO Last administered on 03/14/19 09:08; Admin Dose 1 TAB; Start 03/08/19 at 09:00 Zinc Sulfate (Zinc Sulfate) 220 mg DAILY PO Last administered on 03/14/19at 09:15; Admin Dose 220 MG; Start 03/08/19 at 11:00 Levofloxacin (Levaquin) 750 mg DAILY@06 PO Last administered on 03/14/19at 05:45; Admin Dose 750 MG; Start 03/10/19 at 06:00 Vancomycin HCl (Vanco Iv Per Pharmacy) VANCOMYCIN PER PHARMACY PER PROTOCOL XX ; Start 03/10/19 at 11:00 Apixaban (Eliquis) 5 mg BID PO Last administered on 03/14/19at 09:07; Admin Dose 5 MG; Start 03/11/19 at 21:00 Vancomycin/Sodium Chloride 250 ml @ 125 mls/hr Q8H IVPB Last administered on 03/14/19at 13:28; Admin Dose 125 MLS/HR; Start 03/12/19 at 21:30 TIFFANIE DEVINE NP Mar 14, 2019 15:29
[2019-03-14 19:57] VITALS: BP 101/64; PULSE 82; RESP 16
[2019-03-15] MEDS: HYDROmorphONE 0.5 MG/0.5 ML SYG IV PRN ×5 (01:13→19:39)
[2019-03-15 02:09] VITALS: BP 103/61; PULSE 77; RESP 16
[2019-03-15] MEDS: VANCOMYCIN 750 MG (PMX) 250 ML IVPB SCH ×3 (06:21→20:49)
[2019-03-15] MEDS: LEVOFLOXACIN 750 MG TABLET PO SCH (06:21)
[2019-03-15 08:15] VITALS: BP 124/72; PULSE 101; RESP 18
[2019-03-15] MEDS: SENNA TAB PO SCH ×2 (08:22→20:48)
[2019-03-15] MEDS: ASCORBIC ACID 500 MG TAB PO SCH (08:22)
[2019-03-15] MEDS: APIXABAN 5 MG TABLET PO SCH ×2 (08:22→20:48)
[2019-03-15] MEDS: FAMOTIDINE 20 MG TAB PO SCH (08:22)
[2019-03-15] MEDS: MULTIVITAMINS/MINERALS TAB PO SCH (08:22)
[2019-03-15] MEDS: ONDANSETRON 4 MG INJ IV PRN (08:22)
[2019-03-15] MEDS: ZINC SULFATE 220 MG CAP PO SCH (08:22)
[2019-03-15] MEDS: LACTOBACILLUS RHAMNOSUS CAP PO SCH ×2 (08:22→20:48)
[2019-03-15] MEDS: CHOLECALCIFEROL 2,000 UNIT CAP PO SCH (08:22)
--- NOTE | 2019-03-15 12:11 | PN ---
Date/Time of Note Date/Time of Note DATE: 03/15/19 TIME: 12:08 Assessment/Plan VTE Prophylaxis Risk score (from Ns)>0 risk: 2 SCD applied (from Ns): No SCD contraindicated: other Pharmacological prophylaxis: apixaban Lines/Catheters IV Catheter Type (from [facility]): [place] Urinary Cath still in place: No Assessment/Plan Assessment/Plan 1. Right lower extremity cellulitis with abscess, status post I&D on 03/09/2019, continue wound care, antibiotics 2. History of right lower extremity deep venous thrombosis, ischemic compartment syndrome, status post fasciotomy in 10/2018, on eliquis 3. Intraatrial shunt on previous Echo but PASP 23 mmHg on 09/24/2018, follow up with cardiology outpatient 4. DVT prophylaxis: eliquis Result Diagram: 03/13/19 0521 03/15/19 0450 Results 24hrs Laboratory Tests Test 03/15/19 04:50 Blood Urea Nitrogen 16 Creatinine 0.57 Subjective 24 Hr Interval Summary Free Text/Dictation pain is controlled Exam/Review of Systems Exam Vitals Vital Signs Date Temp Pulse Resp B/P (MAP) Pulse Ox O2 O2 Flow FiO2 Time Delivery Rate 03/15/19 98.1 101 18 124/72 98 08:15 (89) 03/14/19 Room Air 01:45 Intake and Output 03/14/19 03/14/19 03/15/19 1515:00 23:00 07:00 IntakeIntake Total 1290 ml 250 ml 250 ml BalanceBalance 1290 ml 250 ml 250 ml Constitutional: alert, oriented, well developed Psych: no complaints, nl mood/affect Head: normocephalic, atraumatic Eyes: nl conjunctiva, EOMI, nl lids, PERRL ENMT: nl external ears & nose, nl lips & teeth, nl nasal mucosa & septum Neck: supple, non-tender Respiratory: clear to auscultation, normal air movement; No congested cough, No crackles/rales, No diminished breath sounds, No intercostal retraction, No labored breathing, No respirations, No tactile fremitus, No wheezing, No other Cardiovascular: regular rate and rhythm, nl pulses; No bruits, No diastolic murmur, No edema, No gallop, No irregular rhythm, No jugular venous distention (JVD), No murmurs/extra sounds, No rub, No systolic murmur, No S3, No S4, No other Gastrointestinal: soft, nl liver, spleen, non-tender Musculoskeletal: nl extremities to inspection Extremities: other (right lower extremity wound) Neurological: BUSINESS EXECUTIVE II-XII intact, nl mental status, nl speech, nl strength Results Results 24hrs Laboratory Tests Test 03/15/19 04:50 Blood Urea Nitrogen 16 Creatinine 0.57 Medications Medication Current Medications IV Flush (NS 3 ml) 3 ml PER PROTOCOL IV Last administered on 03/14/19 16:10; Admin Dose 3 ML; Start 03/07/19 at 20:00 Ondansetron HCl (Zofran Inj) 4 mg Q6H PRN IV NAUSEA/VOMITING Last administered on 03/15/19 08:22; Admin Dose 4 MG; Start 03/07/19 at 20:00 Acetaminophen (Tylenol Tab) 650 mg Q6H PRN PO .PAIN 1-3 OR TEMP; Start 03/07/19 at 20:00 Acetaminophen/ Hydrocodone Bitart ([place] (5/325)) 1 tab Q6H PRN PO .MOD PAIN 4- 6 Last administered on 03/14/19 23:26; Admin Dose 1 TAB; Start 03/07/19 at 20:00 Hydromorphone HCl (Dilaudid) 0.5 mg Q4H PRN IV .SEVERE PAIN 7-10 Last administered on 03/15/19 10:51; Admin Dose 0.5 MG; Start 03/07/19 at 20:00 Docusate Sodium (Colace) 100 mg Q12H PRN PO .CONSTIPATION; Start 03/07/19 at 20:00 Bisacodyl (Dulcolax) 5 mg DAILY PRN PO .CONSTIPATION; Start 03/07/19 at 20:00 Ascorbic Acid (Vitamin C) 500 mg DAILY PO Last administered on 03/15/19 08:22; Admin Dose 500 MG; Start 03/08/19 at 09:00 Cholecalciferol (Vitamin D) 2,000 unit DAILY PO Last administered on 03/15/19 08:22; Admin Dose 2,000 UNIT; Start 03/08/19 at 09:00 Famotidine (Pepcid) 20 mg DAILY PO Last administered on 03/15/19 08:22; Admin Dose 20 MG; Start 03/08/19 at 09:00 Lactobacillus Acidophilus/ Rhamnosus (Culturelle) 1 cap BID PO Last administered on 03/15/19 08:22; Admin Dose 1 CAP; Start 03/08/19 at 09:00 Multivitamins/ Minerals (Theragran-M) 1 tab DAILY PO Last administered on 03/15/19 08:22; Admin Dose 1 TAB; Start 03/08/19 at 09:00 Senna (Senokot) 1 tab BID PO Last administered on 03/15/19 08:22; Admin Dose 1 TAB; Start 03/08/19 at 09:00 Zinc Sulfate (Zinc Sulfate) 220 mg DAILY PO Last administered on 03/15/19 08:22; Admin Dose 220 MG; Start 03/08/19 at 11:00 Levofloxacin (Levaquin) 750 mg DAILY@06 PO Last administered on 03/15/19 06:21; Admin Dose 750 MG; Start 03/10/19 at 06:00 Vancomycin HCl (Vanco Iv Per Pharmacy) VANCOMYCIN PER PHARMACY PER PROTOCOL XX ; Start 03/10/19 at 11:00 Apixaban (Eliquis) 5 mg BID PO Last administered on 03/15/19 08:22; Admin Dose 5 MG; Start 03/11/19 at 21:00 Vancomycin/Sodium Chloride 250 ml @ 125 mls/hr Q8H IVPB Last administered on 03/15/19 06:21; Admin Dose 125 MLS/HR; Start 03/12/19 at 21:30 CHATO MCGEE MD Mar 15, 2019 12:11
--- NOTE | 2019-03-15 13:14 | CONS ---
Assessment/Plan Assessment/Plan Hospital Course (Demo Recall) SUBJECTIVE: Alert, feels good, looks comfortable. MICROBIOLOGY: Blood cultures remain negative. Right lower extremity wound culture growing Enterobacter cloaca, Corynebacterium group JK and MRSA Extremity venous study revealed no DVT. Arterial study showed 30% to 49% stenosis of right common femoral artery. Chest x-ray on admission revealed no pneumonia. ANTIMICROBIALS: Levaquin Vanco PHYSICAL EXAMINATION: GENERAL: Well-developed, well-nourished 38-year-old woman who is alert, in no distress. HEENT: Head atraumatic, normocephalic. Sclerae anicteric. Buccal mucosa pink. NECK: Supple. CHEST: Rise symmetrical. Breath sounds diminished to bases. HEART: S1, S2. ABDOMEN: Soft, bowel sounds present. EXTREMITIES: Right lower extremity Gage wrapped. ASSESSMENT: 1. Right lower extremity cellulitis with abscess, status post I&D. 2. Diabetes. 3. Diabetic neuropathy. 4. History of right lower extremity deep venous thrombosis, ischemic compartment syndrome, status post fasciotomy in 10/2018. 5. History of atrial septal defect. PLAN: The patient remains stable. Continue abx, wound care per podiatry Consultation Date/Type/Reason Admit Date/Time Mar 07, 2019 at 22:10 Initial Consult Date Type of Consult id Date/Time of Note DATE: 03/15/19 TIME: 13:14 Exam/Review of Systems Exam Vitals Vital Signs Date Temp Pulse Resp B/P (MAP) Pulse Ox O2 O2 Flow FiO2 Time Delivery Rate 03/15/19 98.1 101 18 124/72 98 08:15 (89) 03/14/19 Room Air 01:45 Intake and Output 03/14/19 03/14/19 03/15/19 1515:00 23:00 07:00 IntakeIntake Total 1290 ml 250 ml 250 ml BalanceBalance 1290 ml 250 ml 250 ml Results Result Diagram: 03/13/19 0521 03/15/19 0450 Results 24hrs Laboratory Tests Test 03/15/19 04:50 Blood Urea Nitrogen 16 Creatinine 0.57 Medications Medication Current Medications IV Flush (NS 3 ml) 3 ml PER PROTOCOL IV Last administered on 03/14/19at 16:10; Admin Dose 3 ML; Start 03/07/19 at 20:00 Ondansetron HCl (Zofran Inj) 4 mg Q6H PRN IV NAUSEA/VOMITING Last administered on 03/15/19 08:22; Admin Dose 4 MG; Start 03/07/19 at 20:00 Acetaminophen (Tylenol Tab) 650 mg Q6H PRN PO .PAIN 1-3 OR TEMP; Start 03/07/19 at 20:00 Acetaminophen/ Hydrocodone Bitart ([place] (5/325)) 1 tab Q6H PRN PO .MOD PAIN 4- 6 Last administered on 03/14/19 23:26; Admin Dose 1 TAB; Start 03/07/19 at 20:00 Hydromorphone HCl (Dilaudid) 0.5 mg Q4H PRN IV .SEVERE PAIN 7-10 Last administered on 03/15/19 10:51; Admin Dose 0.5 MG; Start 03/07/19 at 20:00 Docusate Sodium (Colace) 100 mg Q12H PRN PO .CONSTIPATION; Start 03/07/19 at 20:00 Bisacodyl (Dulcolax) 5 mg DAILY PRN PO .CONSTIPATION; Start 03/07/19 at 20:00 Ascorbic Acid (Vitamin C) 500 mg DAILY PO Last administered on 03/15/19 08:22; Admin Dose 500 MG; Start 03/08/19 at 09:00 Cholecalciferol (Vitamin D) 2,000 unit DAILY PO Last administered on 03/15/19 08:22; Admin Dose 2,000 UNIT; Start 03/08/19 at 09:00 Famotidine (Pepcid) 20 mg DAILY PO Last administered on 03/15/19 08:22; Admin Dose 20 MG; Start 03/08/19 at 09:00 Lactobacillus Acidophilus/ Rhamnosus (Culturelle) 1 cap BID PO Last administered on 03/15/19 08:22; Admin Dose 1 CAP; Start 03/08/19 at 09:00 Multivitamins/ Minerals (Theragran-M) 1 tab DAILY PO Last administered on 03/15/19 08:22; Admin Dose 1 TAB; Start 03/08/19 at 09:00 Senna (Senokot) 1 tab BID PO Last administered on 03/15/19 08:22; Admin Dose 1 TAB; Start 03/08/19 at 09:00 Zinc Sulfate (Zinc Sulfate) 220 mg DAILY PO Last administered on 03/15/19 08:22; Admin Dose 220 MG; Start 03/08/19 at 11:00 Levofloxacin (Levaquin) 750 mg DAILY@06 PO Last administered on 03/15/19 06:21; Admin Dose 750 MG; Start 03/10/19 at 06:00 Vancomycin HCl (Vanco Iv Per Pharmacy) VANCOMYCIN PER PHARMACY PER PROTOCOL XX ; Start 03/10/19 at 11:00 Apixaban (Eliquis) 5 mg BID PO Last administered on 03/15/19 08:22; Admin Dose 5 MG; Start 03/11/19 at 21:00 Vancomycin/Sodium Chloride 250 ml @ 125 mls/hr Q8H IVPB Last administered on 03/15/19 06:21; Admin Dose 125 MLS/HR; Start 03/12/19 at 21:30 TIFFANIE DEVINE NP Mar 15, 2019 13:14
[2019-03-15 13:48] VITALS: BP 108/64; PULSE 82; RESP 20
[2019-03-15] MEDS: HYDROCODONE/APAP (5/325) TAB PO PRN (18:07)
[2019-03-15 19:21] VITALS: BP 108/64; PULSE 77; RESP 20
[2019-03-16] MEDS: HYDROmorphONE 0.5 MG/0.5 ML SYG IV PRN ×4 (00:08→20:31)
[2019-03-16 02:05] VITALS: BP 93/35; PULSE 76; RESP 20
[2019-03-16 03:30] VITALS: BP 99/54; RESP 18
[2019-03-16 04:07] VITALS: BP 99/54; PULSE 79; RESP 18
[2019-03-16] MEDS: LEVOFLOXACIN 750 MG TABLET PO SCH (05:20)
[2019-03-16] MEDS: VANCOMYCIN 750 MG (PMX) 250 ML IVPB SCH ×3 (05:20→21:20)
[2019-03-16 08:11] VITALS: BP 107/59; PULSE 83; RESP 16
[2019-03-16] MEDS: CHOLECALCIFEROL 2,000 UNIT CAP PO SCH (09:26)
[2019-03-16] MEDS: LACTOBACILLUS RHAMNOSUS CAP PO SCH ×2 (09:26→21:20)
[2019-03-16] MEDS: APIXABAN 5 MG TABLET PO SCH (09:26)
[2019-03-16] MEDS: ZINC SULFATE 220 MG CAP PO SCH (09:26)
[2019-03-16] MEDS: ASCORBIC ACID 500 MG TAB PO SCH (09:26)
[2019-03-16] MEDS: MULTIVITAMINS/MINERALS TAB PO SCH (09:26)
[2019-03-16] MEDS: FAMOTIDINE 20 MG TAB PO SCH (09:26)
[2019-03-16] MEDS: SENNA TAB PO SCH ×2 (09:26→21:20)
[2019-03-16] MEDS: ONDANSETRON 4 MG INJ IV PRN (10:43)
[2019-03-16] MEDS: HYDROCODONE/APAP (5/325) TAB PO PRN ×2 (11:27→18:23)
--- NOTE | 2019-03-16 11:33 | CONS ---
Assessment/Plan Assessment/Plan Assessment/Plan (Daily) Right lower extremity surgical ulcer s/p incision and drainage and debridement (DOS: 03/09/19) Right lower extremity abscess Right lower extremity cellulitis PAD DM2 with peripheral neuropathy DM2 well controlled Plan No purulence or residual infection noted to the lower extremity. Planning for skin grafting and wound closure Thursday. Prepare consents and NPO on day of s urgery. Wound sites were irrigated and recommend daily dressing changes. Intra op Wound Cultures showing scant/rare growth of e. clocae and corynebacterium. Abx per ID recommendations. Discussed with patient will need staged procedures in order achieve wound closure. Appreciate vascular surgery evaluation. Consultation Date/Type/Reason Admit Date/Time Mar 07, 2019 at 22:10 Initial Consult Date Date/Time of Note DATE: 03/16/19 TIME: 11:33 24 HR Interval Summary Free Text/Dictation No acute events overnight. Exam/Review of Systems Exam Vitals Vital Signs Date Temp Pulse Resp B/P (MAP) Pulse Ox O2 O2 Flow FiO2 Time Delivery Rate 03/16/19 98.5 83 16 107/59 99 08:11 (75) 03/14/19 Room Air 01:45 Intake and Output 03/15/19 03/15/19 03/16/19 1515:00 23:00 07:00 IntakeIntake Total 1210 ml 1020 ml BalanceBalance 1210 ml 1020 ml Exam DP/PT pulses palpable Pedal hairs presents b/l lower extremity with skin temp gradient warm to warm from proximal leg to distal feet Absent protective sensations to the midfoot and distal digits Right lower leg with fasciotomy incision sites 30cm x 4cm x 0.2cm on the medial aspect with granular wound base, no proximal streaking, no purulence Right lower leg with fasciotomy incision sites 31cm x 1.5cm x 0.2cm on the lateral aspect with granular wound base, no proximal streaking, no purulence There is an aspect to the distal aspect of the lateral wound which probes deep but not to bone approximately 2.5cm. Mild serosanguinous drainage noted from the probing site No purulence expressed from the surgical sites. Muscle strength 4/5 to the right lower extremity with plantar flexion, dorsiflexion, inversion, eversion. CT right lower extremity IMPRESSION: 1. Abscess within the anterior compartment musculature of the lower leg measuring approximately 3.3 x 1.2 x 14.0 cm. 2. Abscess within the deep posterior compartment musculature of the lower leg measuring approximately 1.7 x 0.8 x 6.4 cm. 3. Right groin and right pelvic adenopathy is presumably reactive and new from November 05, 2018. Consider follow-up imaging as warranted to assess stability. Non invasive arterial studies IMPRESSION: Elevated velocity in the right common femoral artery, possibly indicating a 30 - 49% stenosis. If further characterization of the arterial vasculature is needed, CTA is recommended. Venous ultrasound IMPRESSION: No sonographic evidence for deep venous thrombosis. The previously seen venous thrombus has resolved. Results Result Diagram: 03/13/19 0503/15/19 0450 Medications Medication Current Medications IV Flush (NS 3 ml) 3 ml PER PROTOCOL IV Last administered on 03/14/19at 16:10; Admin Dose 3 ML; Start 03/07/19 at 20:00 Ondansetron HCl (Zofran Inj) 4 mg Q6H PRN IV NAUSEA/VOMITING Last administered on 03/16/19at 10:43; Admin Dose 4 MG; Start 03/07/19 at 20:00 Acetaminophen (Tylenol Tab) 650 mg Q6H PRN PO .PAIN 1-3 OR TEMP; Start 03/07/19 at 20:00 Acetaminophen/ Hydrocodone Bitart ([place] (5/325)) 1 tab Q6H PRN PO .MOD PAIN 4- 6 Last administered on 03/15/19at 18:07; Admin Dose 1 TAB; Start 03/07/19 at 20:00 Hydromorphone HCl (Dilaudid) 0.5 mg Q4H PRN IV .SEVERE PAIN 7-10 Last administered on 03/16/19at 09:22; Admin Dose 0.5 MG; Start 03/07/19 at 20:00 Docusate Sodium (Colace) 100 mg Q12H PRN PO .CONSTIPATION; Start 03/07/19 at 20:00 Bisacodyl (Dulcolax) 5 mg DAILY PRN PO .CONSTIPATION; Start 03/07/19 at 20:00 Ascorbic Acid (Vitamin C) 500 mg DAILY PO Last administered on 03/16/19at 09:26; Admin Dose 500 MG; Start 03/08/19 at 09:00 Cholecalciferol (Vitamin D) 2,000 unit DAILY PO Last administered on 03/16/19 09:26; Admin Dose 2,000 UNIT; Start 03/08/19 at 09:00 Famotidine (Pepcid) 20 mg DAILY PO Last administered on 03/16/19 09:26; Admin Dose 20 MG; Start 03/08/19 at 09:00 Lactobacillus Acidophilus/ Rhamnosus (Culturelle) 1 cap BID PO Last administered on 03/16/19 09:26; Admin Dose 1 CAP; Start 03/08/19 at 09:00 Multivitamins/ Minerals (Theragran-M) 1 tab DAILY PO Last administered on 03/16/19 09:26; Admin Dose 1 TAB; Start 03/08/19 at 09:00 Senna (Senokot) 1 tab BID PO Last administered on 03/16/19 09:26; Admin Dose 1 TAB; Start 03/08/19 at 09:00 Zinc Sulfate (Zinc Sulfate) 220 mg DAILY PO Last administered on 03/16/19 09:26; Admin Dose 220 MG; Start 03/08/19 at 11:00 Levofloxacin (Levaquin) 750 mg DAILY@06 PO Last administered on 03/16/19 05:20; Admin Dose 750 MG; Start 03/10/19 at 06:00 Vancomycin HCl (Vanco Iv Per Pharmacy) VANCOMYCIN PER PHARMACY PER PROTOCOL XX ; Start 03/10/19 at 11:00 Apixaban (Eliquis) 5 mg BID PO Last administered on 03/16/19 09:26; Admin Dose 5 MG; Start 03/11/19 at 21:00 Vancomycin/Sodium Chloride 250 ml @ 125 mls/hr Q8H IVPB Last administered on 03/16/19 05:20; Admin Dose 125 MLS/HR; Start 03/12/19 at 21:30 Ferric Sodium Gluconate Complex 125 mg/Sodium Chloride 110 ml @ 110 mls/hr DAILY@1300 IVPB ; Start 03/16/19 at 13:00; Stop 03/20/19 at 13:59 SUMMER BALDERRAMA DPMonico Mar 16, 2019 11:33
[2019-03-16] MEDS: SOD FERRIC GLUC COMPLX 125 MG in SOD CHLORIDE 0.9% 100 ML IVPB SCH (12:07)
--- NOTE | 2019-03-16 12:48 | PN ---
Date/Time of Note Date/Time of Note DATE: 03/16/19 TIME: 12:43 Assessment/Plan VTE Prophylaxis Risk score (from Ns)>0 risk: 6 SCD applied (from [facility] [place] No SCD contraindicated: other Pharmacological prophylaxis: LMWH Lines/Catheters IV C[facility]ter Type (from [facility]): Peripheral IV Urinary Cath still in place: No Assessment/Plan Assessment/Plan 1. Right lower extremity cellulitis with abscess, status post I&D on 03/09/2019, continue wound care, antibiotics, skin grafting and wound closure Thursday 2. History of right lower extremity deep venous thrombosis, ischemic compartment syndrome, status post fasciotomy in 10/2018, hold eliquis for surge ry 3. Intraatrial shunt on previous Echo but PASP 23 mmHg on 09/24/2018, follow up with cardiology outpatient 4. DVT prophylaxis: change eliquis to lovenox sq Result Diagram: 03/13/19 0521 03/15/19 0450 Subjective 24 Hr Interval Summary Free Text/Dictation afebrile Exam/Review of Systems Exam Vitals Vital Signs Date Temp Pulse Resp B/P (MAP) Pulse Ox O2 O2 Flow FiO2 Time Delivery Rate 03/16/19 98.5 83 16 107/59 99 08:11 (75) 03/14/19 Room Air 01:45 Intake and Output 03/15/19 03/15/19 03/16/19 1515:00 23:00 07:00 IntakeIntake Total 1210 ml 1020 ml BalanceBalance 1210 ml 1020 ml Constitutional: alert, oriented, well developed Head: normocephalic, atraumatic Eyes: nl conjunctiva, EOMI, nl lids, PERRL ENMT: nl external ears & nose, nl lips & teeth, nl nasal mucosa & septum Neck: supple, non-tender Respiratory: clear to auscultation, normal air movement; No congested cough, No crackles/rales, No diminished breath sounds, No intercostal retraction, No labored breathing, No respirations, No tactile fremitus, No wheezing, No other Cardiovascular: regular rate and rhythm, nl pulses; No bruits, No diastolic murmur, No edema, No gallop, No irregular rhythm, No jugular venous distention (JVD), No murmurs/extra sounds, No rub, No systolic murmur, No S3, No S4, No other Gastrointestinal: soft, nl liver, spleen, non-tender Musculoskeletal: nl extremities to inspection Extremities: other (right lower extremity wound) Neurological: SOFTWARE PROJECT LEAD II-XII intact, nl mental status, nl speech, nl strength Medications Medication Current Medications IV Flush (NS 3 ml) 3 ml PER PROTOCOL IV Last administered on 03/14/19 16:10; Admin Dose 3 ML; Start 03/07/19 at 20:00 Ondansetron HCl (Zofran Inj) 4 mg Q6H PRN IV NAUSEA/VOMITING Last administered on 03/16/19 10:43; Admin Dose 4 MG; Start 03/07/19 at 20:00 Acetaminophen (Tylenol Tab) 650 mg Q6H PRN PO .PAIN 1-3 OR TEMP; Start 03/07/19 at 20:00 Acetaminophen/ Hydrocodone Bitart ([place] (5/325)) 1 tab Q6H PRN PO .MOD PAIN 4- 6 Last administered on 03/16/19 11:27; Admin Dose 1 TAB; Start 03/07/19 at 20:00 Hydromorphone HCl (Dilaudid) 0.5 mg Q4H PRN IV .SEVERE PAIN 7-10 Last administered on 03/16/19 09:22; Admin Dose 0.5 MG; Start 03/07/19 at 20:00 Docusate Sodium (Colace) 100 mg Q12H PRN PO .CONSTIPATION; Start 03/07/19 at 20:00 Bisacodyl (Dulcolax) 5 mg DAILY PRN PO .CONSTIPATION; Start 03/07/19 at 20:00 Ascorbic Acid (Vitamin C) 500 mg DAILY PO Last administered on 03/16/19 09:26; Admin Dose 500 MG; Start 03/08/19 at 09:00 Cholecalciferol (Vitamin D) 2,000 unit DAILY PO Last administered on 03/16/19 09:26; Admin Dose 2,000 UNIT; Start 03/08/19 at 09:00 Famotidine (Pepcid) 20 mg DAILY PO Last administered on 03/16/19 09:26; Admin Dose 20 MG; Start 03/08/19 at 09:00 Lactobacillus Acidophilus/ Rhamnosus (Culturelle) 1 cap BID PO Last administered on 03/16/19 09:26; Admin Dose 1 CAP; Start 03/08/19 at 09:00 Multivitamins/ Minerals (Theragran-M) 1 tab DAILY PO Last administered on 03/16/19 09:26; Admin Dose 1 TAB; Start 03/08/19 at 09:00 Senna (Senokot) 1 tab BID PO Last administered on 03/16/19 09:26; Admin Dose 1 TAB; Start 03/08/19 at 09:00 Zinc Sulfate (Zinc Sulfate) 220 mg DAILY PO Last administered on 03/16/19 09:26; Admin Dose 220 MG; Start 03/08/19 at 11:00 Levofloxacin (Levaquin) 750 mg DAILY@06 PO Last administered on 03/16/19 05:20; Admin Dose 750 MG; Start 03/10/19 at 06:00 Vancomycin HCl (Vanco Iv Per Pharmacy) VANCOMYCIN PER PHARMACY PER PROTOCOL XX ; Start 03/10/19 at 11:00 Apixaban (Eliquis) 5 mg BID PO Last administered on 03/16/19 09:26; Admin Dose 5 MG; Start 03/11/19 at 21:00 Vancomycin/Sodium Chloride 250 ml @ 125 mls/hr Q8H IVPB Last administered on 03/16/19 05:20; Admin Dose 125 MLS/HR; Start 03/12/19 at 21:30 Ferric Sodium Gluconate Complex 125 mg/Sodium Chloride 110 ml @ 110 mls/hr DAILY@1300 IVPB Last administered on 03/16/19 12:07; Admin Dose 110 MLS/HR; Start 03/16/19 at 13:00; Stop 03/20/19 at 13:59 Miscellaneous Information (*Rx Drug Level Order Reminder*) VANCO TROUGH 03/17 @ 1,230 1230 ONCE XX ; Start 03/17/19 at 12:30; Stop 03/17/19 at 12:31 CHATO MCGEE MD Mar 16, 2019 12:48
--- NOTE | 2019-03-16 13:29 | CONS ---
Assessment/Plan Assessment/Plan Hospital Course (Demo Recall) SUBJECTIVE: Alert, feels good MICROBIOLOGY: Blood cultures remain negative. Right lower extremity wound culture growing Enterobacter cloaca, Corynebacterium group JK and MRSA Extremity venous study revealed no DVT. Arterial study showed 30% to 49% stenosis of right common femoral artery. Chest x-ray on admission revealed no pneumonia. ANTIMICROBIALS: Levaquin Vanco PHYSICAL EXAMINATION: GENERAL: Well-developed, well-nourished 38-year-old woman who is alert, in no distress. HEENT: Head atraumatic, normocephalic. Sclerae anicteric. Buccal mucosa pink. NECK: Supple. CHEST: Rise symmetrical. Breath sounds diminished to bases. HEART: S1, S2. ABDOMEN: Soft, bowel sounds present. EXTREMITIES: Right lower extremity Gage wrapped. ASSESSMENT: 1. Right lower extremity cellulitis with abscess, status post I&D. 2. Diabetes. 3. Diabetic neuropathy. 4. History of right lower extremity deep venous thrombosis, ischemic compartment syndrome, status post fasciotomy in 10/2018. 5. History of atrial septal defect. PLAN: The patient remains stable. Continue abx to complete 2 weeks, wound care per podiatry ==> poss closure Consultation Date/Type/Reason Admit Date/Time Mar 07, 2019 at 22:10 Initial Consult Date Type of Consult id Date/Time of Note DATE: 03/16/19 TIME: 13:29 Exam/Review of Systems Exam Vitals Vital Signs Date Temp Pulse Resp B/P (MAP) Pulse Ox O2 O2 Flow FiO2 Time Delivery Rate 03/16/19 98.5 83 16 107/59 99 08:11 (75) 03/14/19 Room Air 01:45 Intake and Output 03/15/19 03/15/19 03/16/19 1515:00 23:00 07:00 IntakeIntake Total 1210 ml 1020 ml BalanceBalance 1210 ml 1020 ml Results Result Diagram: 03/13/19 0521 03/15/19 0450 Medications Medication Current Medications IV Flush (NS 3 ml) 3 ml PER PROTOCOL IV Last administered on 03/14/19at 16:10; Admin Dose 3 ML; Start 03/07/19 at 20:00 Ondansetron HCl (Zofran Inj) 4 mg Q6H PRN IV NAUSEA/VOMITING Last administered on 03/16/19 10:43; Admin Dose 4 MG; Start 03/07/19 at 20:00 Acetaminophen (Tylenol Tab) 650 mg Q6H PRN PO .PAIN 1-3 OR TEMP; Start 03/07/19 at 20:00 Acetaminophen/ Hydrocodone Bitart ([place] (5/325)) 1 tab Q6H PRN PO .MOD PAIN 4- 6 Last administered on 03/16/19 11:27; Admin Dose 1 TAB; Start 03/07/19 at 20:00 Hydromorphone HCl (Dilaudid) 0.5 mg Q4H PRN IV .SEVERE PAIN 7-10 Last administered on 03/16/19 09:22; Admin Dose 0.5 MG; Start 03/07/19 at 20:00 Docusate Sodium (Colace) 100 mg Q12H PRN PO .CONSTIPATION; Start 03/07/19 at 20:00 Bisacodyl (Dulcolax) 5 mg DAILY PRN PO .CONSTIPATION; Start 03/07/19 at 20:00 Ascorbic Acid (Vitamin C) 500 mg DAILY PO Last administered on 03/16/19 09:26; Admin Dose 500 MG; Start 03/08/19 at 09:00 Cholecalciferol (Vitamin D) 2,000 unit DAILY PO Last administered on 03/16/19 09:26; Admin Dose 2,000 UNIT; Start 03/08/19 at 09:00 Famotidine (Pepcid) 20 mg DAILY PO Last administered on 03/16/19 09:26; Admin Dose 20 MG; Start 03/08/19 at 09:00 Lactobacillus Acidophilus/ Rhamnosus (Culturelle) 1 cap BID PO Last administered on 03/16/19 09:26; Admin Dose 1 CAP; Start 03/08/19 at 09:00 Multivitamins/ Minerals (Theragran-M) 1 tab DAILY PO Last administered on 03/16/19 09:26; Admin Dose 1 TAB; Start 03/08/19 at 09:00 Senna (Senokot) 1 tab BID PO Last administered on 03/16/19 09:26; Admin Dose 1 TAB; Start 03/08/19 at 09:00 Zinc Sulfate (Zinc Sulfate) 220 mg DAILY PO Last administered on 03/16/19 09:26; Admin Dose 220 MG; Start 03/08/19 at 11:00 Levofloxacin (Levaquin) 750 mg DAILY@06 PO Last administered on 03/16/19at 05:20; Admin Dose 750 MG; Start 03/10/19 at 06:00 Vancomycin HCl (Vanco Iv Per Pharmacy) VANCOMYCIN PER PHARMACY PER PROTOCOL XX ; Start 03/10/19 at 11:00 Vancomycin/Sodium Chloride 250 ml @ 125 mls/hr Q8H IVPB Last administered on 03/16/19at 05:20; Admin Dose 125 MLS/HR; Start 03/12/19 at 21:30 Ferric Sodium Gluconate Complex 125 mg/Sodium Chloride 110 ml @ 110 mls/hr DAILY@1300 IVPB Last administered on 03/16/19at 12:07; Admin Dose 110 MLS/HR; Start 03/16/19 at 13:00; Stop 03/20/19 at 13:59 Miscellaneous Information (*Rx Drug Level Order Reminder*) VANCO TROUGH 03/17 @ 1,230 1230 ONCE XX ; Start 03/17/19 at 12:30; Stop 03/17/19 at 12:31 Enoxaparin Sodium (Lovenox) 70 mg Q12 SC ; Start 03/16/19 at 21:00; Stop 03/17/19 at 09:01 TIFFANIE DEVINE NP Mar 16, 2019 13:29
[2019-03-16 13:35] VITALS: BP 97/57; PULSE 83; RESP 18
[2019-03-16 19:59] VITALS: BP 117/66; PULSE 83; RESP 20
[2019-03-16] MEDS: ENOXAPARIN 80 MG/0.8 ML SYG SC SCH (21:22)
[2019-03-17] MEDS: HYDROmorphONE 0.5 MG/0.5 ML SYG IV PRN ×6 (00:39→22:09)
[2019-03-17 01:44] VITALS: BP 96/56; PULSE 77; RESP 18
[2019-03-17] MEDS: VANCOMYCIN 750 MG (PMX) 250 ML IVPB SCH ×3 (05:07→20:37)
[2019-03-17] MEDS: LEVOFLOXACIN 750 MG TABLET PO SCH (05:07)
[2019-03-17 07:33] VITALS: BP 98/57; PULSE 78; RESP 16
[2019-03-17] MEDS: MULTIVITAMINS/MINERALS TAB PO SCH (08:26)
[2019-03-17] MEDS: SENNA TAB PO SCH ×2 (08:26→20:36)
[2019-03-17] MEDS: LACTOBACILLUS RHAMNOSUS CAP PO SCH ×2 (08:26→20:36)
[2019-03-17] MEDS: ZINC SULFATE 220 MG CAP PO SCH (08:27)
[2019-03-17] MEDS: ASCORBIC ACID 500 MG TAB PO SCH (08:27)
[2019-03-17] MEDS: FAMOTIDINE 20 MG TAB PO SCH (08:27)
[2019-03-17] MEDS: CHOLECALCIFEROL 2,000 UNIT CAP PO SCH (08:27)
[2019-03-17] MEDS: ENOXAPARIN 80 MG/0.8 ML SYG SC SCH (08:33)
[2019-03-17] MEDS: ONDANSETRON 4 MG INJ IV PRN (09:06)
[2019-03-17] MEDS: SOD FERRIC GLUC COMPLX 125 MG in SOD CHLORIDE 0.9% 100 ML IVPB SCH (12:36)
--- NOTE | 2019-03-17 14:27 | PN ---
Date/Time of Note Date/Time of Note DATE: 03/17/19 TIME: 14:25 Assessment/Plan VTE Prophylaxis Risk score (from Ns)>0 risk: 1 SCD applied (from [facility] [place], [place]): No SCD contraindicated: other Pharmacological prophylaxis: LMWH Lines/Catheters IV Catheter Type (from [facility], [place]): Saline Lock Urinary Cath still in place: No Assessment/Plan Assessment/Plan 1. Right lower extremity cellulitis with abscess, status post I&D on 03/09/2019, continue wound care, antibiotics, skin grafting and wound closure Thursday, NPO after MN 2. History of right lower extremity deep venous thrombosis, ischemic compartment syndrome, status post fasciotomy in 10/2018, hold eliquis for surgery, on lovenox, hold lovenox tonight 3. Intraatrial shunt on previous Echo but PASP 23 mmHg on 09/24/2018, follow up with cardiology outpatient 4. DVT prophylaxis: change eliquis to lovenox sq Result Diagram: 03/17/19 0447 03/17/19 0447 Results 24hrs Laboratory Tests Test 03/17/19 04:47 03/17/19 12:58 White Blood Count 10.3 Red Blood Count 3.63 L Hemoglobin 9.8 L Hematocrit 30.5 L Mean Corpuscular Volume 84.0 Mean Corpuscular Hemoglobin 27.0 L Mean Corpuscular Hemoglobin Concent 32.1 Red Cell Distribution Width 16.8 H Platelet Count 447 H Mean Platelet Volume 10.3 Immature Granulocytes % 1.000 H Neutrophils % 57.9 Lymphocytes % 27.4 Monocytes % 6.4 Eosinophils % 6.2 Basophils % 1.1 Nucleated Red Blood Cells % 0.0 Immature Granulocytes # 0.100 H Neutrophils # 5.9 Lymphocytes # 2.8 Monocytes # 0.7 Eosinophils # 0.6 H Basophils # 0.1 Nucleated Red Blood Cells # 0.0 Sodium Level 143 Potassium Level 3.9 Chloride Level 106 Carbon Dioxide Level 30 Anion Gap 7 Blood Urea Nitrogen 16 Creatinine 0.64 Est Glomerular Filtrat Rate mL/min > 60 Glucose Level 99 Calcium Level 9.4 Vancomycin Level Trough 14.2 Subjective 24 Hr Interval Summary Free Text/Dictation afebrile Exam/Review of Systems Exam Vitals Vital Signs Date Temp Pulse Resp B/P (MAP) Pulse Ox O2 O2 Flow FiO2 Time Delivery Rate 03/17/19 98.2 78 16 98/57 (71) 96 07:33 03/14/19 Room Air 01:45 Intake and Output 03/16/19 03/16/19 03/17/19 1515:00 23:00 07:00 IntakeIntake Total 1070 ml 1010 ml 250 ml BalanceBalance 1070 ml 1010 ml 250 ml Constitutional: alert, oriented, well developed Psych: no complaints, nl mood/affect Head: normocephalic, atraumatic Eyes: nl conjunctiva, EOMI, nl lids, PERRL ENMT: nl external ears & nose, nl lips & teeth, nl nasal mucosa & septum Neck: supple, non-tender Respiratory: clear to auscultation, normal air movement; No congested cough, No crackles/rales, No diminished breath sounds, No intercostal retraction, No labored breathing, No respirations, No tactile f remitus, No wheezing, No other Cardiovascular: regular rate and rhythm, nl pulses; No bruits, No diastolic murmur, No edema, No gallop, No irregular rhythm, No jugular venous distention (JVD), No murmurs/extra sounds, No rub, No systolic murmur, No S3, No S4, No other Gastrointestinal: soft, nl liver, spleen, non-tender Musculoskeletal: nl extremities to inspection Extremities: other (right lower extremity wound) Neurological: POLICY INTERN II-XII intact, nl mental status, nl speech, nl strength Results Results 24hrs Laboratory Tests Test 03/17/19 04:47 03/17/19 12:58 White Blood Count 10.3 Red Blood Count 3.63 L Hemoglobin 9.8 L Hematocrit 30.5 L Mean Corpuscular Volume 84.0 Mean Corpuscular Hemoglobin 27.0 L Mean Corpuscular Hemoglobin Concent 32.1 Red Cell Distribution Width 16.8 H Platelet Count 447 H Mean Platelet Volume 10.3 Immature Granulocytes % 1.000 H Neutrophils % 57.9 Lymphocytes % 27.4 Monocytes % 6.4 Eosinophils % 6.2 Basophils % 1.1 Nucleated Red Blood Cells % 0.0 Immature Granulocytes # 0.100 H Neutrophils # 5.9 Lymphocytes # 2.8 Monocytes # 0.7 Eosinophils # 0.6 H Basophils # 0.1 Nucleated Red Blood Cells # 0.0 Sodium Level 143 Potassium Level 3.9 Chloride Level 106 Carbon Dioxide Level 30 Anion Gap 7 Blood Urea Nitrogen 16 Creatinine 0.64 Est Glomerular Filtrat Rate mL/min > 60 Glucose Level 99 Calcium Level 9.4 Vancomycin Level Trough 14.2 Medications Medication Current Medications IV Flush (NS 3 ml) 3 ml PER PROTOCOL IV Last administered on 03/14/19 16:10; Admin Dose 3 ML; Start 03/07/19 at 20:00 Ondansetron HCl (Zofran Inj) 4 mg Q6H PRN IV NAUSEA/VOMITING Last administered on 03/17/19 09:06; Admin Dose 4 MG; Start 03/07/19 at 20:00 Acetaminophen (Tylenol Tab) 650 mg Q6H PRN PO .PAIN 1-3 OR TEMP; Start 03/07/19 at 20:00 Acetaminophen/ Hydrocodone Bitart ([place] (5/325)) 1 tab Q6H PRN PO .MOD PAIN 4- 6 Last administered on 03/16/19 18:23; Admin Dose 1 TAB; Start 03/07/19 at 20:00 Hydromorphone HCl (Dilaudid) 0.5 mg Q4H PRN IV .SEVERE PAIN 7-10 Last administe red on 03/17/19 13:40; Admin Dose 0.5 MG; Start 03/07/19 at 20:00 Docusate Sodium (Colace) 100 mg Q12H PRN PO .CONSTIPATION; Start 03/07/19 at 20:00 Bisacodyl (Dulcolax) 5 mg DAILY PRN PO .CONSTIPATION; Start 03/07/19 at 20:00 Ascorbic Acid (Vitamin C) 500 mg DAILY PO Last administered on 03/17/19 08:27; Admin Dose 500 MG; Start 03/08/19 at 09:00 Cholecalciferol (Vitamin D) 2,000 unit DAILY PO Last administered on 03/17/19 08:27; Admin Dose 2,000 UNIT; Start 03/08/19 at 09:00 Famotidine (Pepcid) 20 mg DAILY PO Last administered on 03/17/19 08:27; Admin Dose 20 MG; Start 03/08/19 at 09:00 Lactobacillus Acidophilus/ Rhamnosus (Culturelle) 1 cap BID PO Last administered on 03/17/19 08:26; Admin Dose 1 CAP; Start 03/08/19 at 09:00 Multivitamins/ Minerals (Theragran-M) 1 tab DAILY PO Last administered on 03/17/19 08:26; Admin Dose 1 TAB; Start 03/08/19 at 09:00 Senna (Senokot) 1 tab BID PO Last administered on 03/17/19at 08:26; Admin Dose 1 TAB; Start 03/08/19 at 09:00 Zinc Sulfate (Zinc Sulfate) 220 mg DAILY PO Last administered on 03/17/19at 08:27; Admin Dose 220 MG; Start 03/08/19 at 11:00 Levofloxacin (Levaquin) 750 mg DAILY@06 PO Last administered on 03/17/19at 05:07; Admin Dose 750 MG; Start 03/10/19 at 06:00 Vancomycin HCl (Vanco Iv Per Pharmacy) VANCOMYCIN PER PHARMACY PER PROTOCOL XX ; Start 03/10/19 at 11:00 Vancomycin/Sodium Chloride 250 ml @ 125 mls/hr Q8H IVPB Last administered on 03/17/19at 05:07; Admin Dose 125 MLS/HR; Start 03/12/19 at 21:30 Ferric Sodium Gluconate Complex 125 mg/Sodium Chloride 110 ml @ 110 mls/hr DAILY@1300 IVPB Last administered on 03/17/19at 12:36; Admin Dose 110 MLS/HR; Start 03/16/19 at 13:00; Stop 03/20/19 at 13:59 CHATO MCGEE MD Mar 17, 2019 14:27
[2019-03-17 14:38] VITALS: BP 101/60; PULSE 85; RESP 16
--- NOTE | 2019-03-17 14:44 | CONS ---
Assessment/Plan Assessment/Plan Hospital Course (Demo Recall) SUBJECTIVE: Alert, feels good looks comfortable MICROBIOLOGY: Blood cultures remain negative. Right lower extremity wound culture growing Enterobacter cloaca, Corynebacterium group JK and MRSA Extremity venous study revealed no DVT. Arterial study showed 30% to 49% stenosis of right common femoral artery. Chest x-ray on admission revealed no pneumonia. ANTIMICROBIALS: Levaquin Vanco PHYSICAL EXAMINATION: GENERAL: Well-developed, well-nourished 38-year-old woman who is alert, in no distress. HEENT: Head atraumatic, normocephalic. Sclerae anicteric. Buccal mucosa pink. NECK: Supple. CHEST: Rise symmetrical. Breath sounds diminished to bases. HEART: S1, S2. ABDOMEN: Soft, bowel sounds present. EXTREMITIES: Right lower extremity Gage wrapped. ASSESSMENT: 1. Right lower extremity cellulitis with abscess, status post I&D. 2. Diabetes. 3. Diabetic neuropathy. 4. History of right lower extremity deep venous thrombosis, ischemic compartment syndrome, status post fasciotomy in 10/2018. 5. History of atrial septal defect. PLAN: The patient remains stable. Continue abx for 5 more days, wound care per podiatry Consultation Date/Type/Reason Admit Date/Time Mar 07, 2019 at 22:10 Initial Consult Date Type of Consult id Date/Time of Note DATE: 03/17/19 TIME: 14:43 Exam/Review of Systems Exam Vitals Vital Signs Date Temp Pulse Resp B/P (MAP) Pulse Ox O2 O2 Flow FiO2 Time Delivery Rate 03/17/19 97.6 85 16 101/60 97 14:38 (74) 03/14/19 Room Air 01:45 Intake and Output 03/16/19 03/16/19 03/17/19 1515:00 23:00 07:00 IntakeIntake Total 1070 ml 1010 ml 250 ml BalanceBalance 1070 ml 1010 ml 250 ml Results Result Diagram: 03/17/19 0447 03/17/19 0447 Results 24hrs Laboratory Tests Test 03/17/19 04:47 03/17/19 12:58 White Blood Count 10.3 Red Blood Count 3.63 L Hemoglobin 9.8 L Hematocrit 30.5 L Mean Corpuscular Volume 84.0 Mean Corpuscular Hemoglobin 27.0 L Mean Corpuscular Hemoglobin Concent 32.1 Red Cell Distribution Width 16.8 H Platelet Count 447 H Mean Platelet Volume 10.3 Immature Granulocytes % 1.000 H Neutrophils % 57.9 Lymphocytes % 27.4 Monocytes % 6.4 Eosinophils % 6.2 Basophils % 1.1 Nucleated Red Blood Cells % 0.0 Immature Granulocytes # 0.100 H Neutrophils # 5.9 Lymphocytes # 2.8 Monocytes # 0.7 Eosinophils # 0.6 H Basophils # 0.1 Nucleated Red Blood Cells # 0.0 Sodium Level 143 Potassium Level 3.9 Chloride Level 106 Carbon Dioxide Level 30 Anion Gap 7 Blood Urea Nitrogen 16 Creatinine 0.64 Est Glomerular Filtrat Rate mL/min > 60 Glucose Level 99 Calcium Level 9.4 Vancomycin Level Trough 14.2 Medications Medication Current Medications IV Flush (NS 3 ml) 3 ml PER PROTOCOL IV Last administered on 03/14/19 16:10; Admin Dose 3 ML; Start 03/07/19 at 20:00 Ondansetron HCl (Zofran Inj) 4 mg Q6H PRN IV NAUSEA/VOMITING Last administered on 03/17/19 09:06; Admin Dose 4 MG; Start 03/07/19 at 20:00 Acetaminophen (Tylenol Tab) 650 mg Q6H PRN PO .PAIN 1-3 OR TEMP; Start 03/07/19 at 20:00 Acetaminophen/ Hydrocodone Bitart ([place] (5/325)) 1 tab Q6H PRN PO .MOD PAIN 4- 6 Last administered on 03/16/19 18:23; Admin Dose 1 TAB; Start 03/07/19 at 20:00 Hydromorphone HCl (Dilaudid) 0.5 mg Q4H PRN IV .SEVERE PAIN 7-10 Last administered on 03/17/19at 13:40; Admin Dose 0.5 MG; Start 03/07/19 at 20:00 Docusate Sodium (Colace) 100 mg Q12H PRN PO .CONSTIPATION; Start 03/07/19 at 20:00 Bisacodyl (Dulcolax) 5 mg DAILY PRN PO .CONSTIPATION; Start 03/07/19 at 20:00 Ascorbic Acid (Vitamin C) 500 mg DAILY PO Last administered on 03/17/19at 08:27; Admin Dose 500 MG; Start 03/08/19 at 09:00 Cholecalciferol (Vitamin D) 2,000 unit DAILY PO Last administered on 03/17/19 08:27; Admin Dose 2,000 UNIT; Start 03/08/19 at 09:00 Famotidine (Pepcid) 20 mg DAILY PO Last administered on 03/17/19 08:27; Admin Dose 20 MG; Start 03/08/19 at 09:00 Lactobacillus Acidophilus/ Rhamnosus (Culturelle) 1 cap BID PO Last administered on 03/17/19 08:26; Admin Dose 1 CAP; Start 03/08/19 at 09:00 Multivitamins/ Minerals (Theragran-M) 1 tab DAILY PO Last administered on 03/17/19 08:26; Admin Dose 1 TAB; Start 03/08/19 at 09:00 Senna (Senokot) 1 tab BID PO Last administered on 03/17/19 08:26; Admin Dose 1 TAB; Start 03/08/19 at 09:00 Zinc Sulfate (Zinc Sulfate) 220 mg DAILY PO Last administered on 03/17/19 08:27; Admin Dose 220 MG; Start 03/08/19 at 11:00 Levofloxacin (Levaquin) 750 mg DAILY@06 PO Last administered on 03/17/19 05:07; Admin Dose 750 MG; Start 03/10/19 at 06:00 Vancomycin HCl (Vanco Iv Per Pharmacy) VANCOMYCIN PER PHARMACY PER PROTOCOL XX ; Start 03/10/19 at 11:00 Vancomycin/Sodium Chloride 250 ml @ 125 mls/hr Q8H IVPB Last administered on 03/17/19 05:07; Admin Dose 125 MLS/HR; Start 03/12/19 at 21:30 Ferric Sodium Gluconate Complex 125 mg/Sodium Chloride 110 ml @ 75 mls/hr DAILY@1300 IVPB Last administered on 03/17/19at 12:36; Admin Dose 110 MLS/HR; Start 03/16/19 at 13:00; Stop 03/20/19 at 14:27 TIFFANIE DEVINE NP Mar 17, 2019 14:44
[2019-03-17 19:54] VITALS: BP 95/52; PULSE 85; RESP 19
[2019-03-18] VITALS (19 sets, daily range): BP systolic 91–110; BP diastolic 43–69; PULSE 64–80; RESP 11–21
[2019-03-18] MEDS: HYDROmorphONE 0.5 MG/0.5 ML SYG IV PRN ×4 (03:54→16:20)
[2019-03-18] MEDS: LEVOFLOXACIN 750 MG TABLET PO SCH (05:35)
[2019-03-18] MEDS: VANCOMYCIN 750 MG (PMX) 250 ML IVPB SCH ×3 (05:35→23:03)
[2019-03-18] MEDS: ASCORBIC ACID 500 MG TAB PO SCH (09:00)
[2019-03-18] MEDS: SENNA TAB PO SCH ×2 (09:00→23:00)
[2019-03-18] MEDS: MULTIVITAMINS/MINERALS TAB PO SCH (09:00)
[2019-03-18] MEDS: FAMOTIDINE 20 MG TAB PO SCH (09:00)
[2019-03-18] MEDS: ZINC SULFATE 220 MG CAP PO SCH (09:00)
[2019-03-18] MEDS: CHOLECALCIFEROL 2,000 UNIT CAP PO SCH (09:00)
[2019-03-18] MEDS: LACTOBACILLUS RHAMNOSUS CAP PO SCH ×2 (09:00→23:00)
[2019-03-18] MEDS: SOD FERRIC GLUC COMPLX 125 MG in SOD CHLORIDE 0.9% 100 ML IVPB SCH (12:14)
--- NOTE | 2019-03-18 12:15 | PN ---
Date/Time of Note Date/Time of Note DATE: 03/18/19 TIME: 12:13 Assessment/Plan VTE Prophylaxis Risk score (from Ns)>0 risk: 2 SCD applied (from Ns): No SCD contraindicated: other Pharmacological prophylaxis: apixaban Lines/Catheters IV Catheter Type (from [facility]): Saline Lock Urinary Cath still in place: No Assessment/Plan Assessment/Plan 1. Right lower extremity cellulitis with abscess, status post I&D on 03/09/2019, continue wound care, antibiotics, skin grafting and wound closure today 2. 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 Intraatrial shunt on previous Echo but PASP 23 mmHg on 09/24/2018, follow up with cardiology outpatient 4. DVT prophylaxis: restart eliquis tomorrow if ok with surgery Result Diagram: 03/17/19 0447 03/17/19 0447 Results 24hrs Laboratory Tests Test 03/17/19 12:58 03/18/19 04:39 Vancomycin Level Trough 14.2 Prothrombin Time 12.6 Prothrombin Time Ratio 1.0 INR International Normalized Ratio 0.93 Subjective 24 Hr Interval Summary Free Text/Dictation no pain, no fever Exam/Review of Systems Exam Vitals Vital Signs Date Temp Pulse Resp B/P (MAP) Pulse Ox O2 O2 Flow FiO2 Time Delivery Rate 03/18/19 98.4 80 18 99/51 (67) 98 Room Air 07:28 Intake and Output 03/17/19 03/17/19 03/18/19 1515:00 23:00 07:00 IntakeIntake Total 1160 ml 1180 ml BalanceBalance 1160 ml 1180 ml Constitutional: alert, oriented, well developed Psych: no complaints Head: normocephalic, atraumatic Eyes: nl conjunctiva, EOMI, nl lids, PERRL ENMT: nl external ears & nose, nl lips & teeth, nl nasal mucosa & septum Neck: supple, non-tender Respiratory: clear to auscultation, normal air movement; No congested cough, No crackles/rales, No diminished breath sounds, No intercostal retraction, No labored breathing, No respirations, No tactile fremitus, No wheezing, No other Cardiovascular: regular rate and rhythm, nl pulses; No bruits, No diastolic murmur, No edema, No gallop, No irregular rhythm, No jugular venous distention (JVD), No murmurs/extra sounds, No rub, No systolic murmur, No S3, No S4, No other Gastrointestinal: soft, nl liver, spleen, non-tender; No ascites, No bowel sounds, No distended, No firm, No hepatomegaly, No mass, No rebound or guarding, No splenomegaly, No surgical scars, No tender, No other Musculoskeletal: nl extremities to inspection Extremities: other (right LE lesion) Neurological: AUDIT DIRECTOR II-XII intact, nl mental status, nl speech, nl strength Results Results 24hrs Laboratory Tests Test 03/17/19 12:58 03/18/19 04:39 Vancomycin Level Trough 14.2 Prothrombin Time 12.6 Prothrombin Time Ratio 1.0 INR International Normalized Ratio 0.93 Medications Medication Current Medications IV Flush (NS 3 ml) 3 ml PER PROTOCOL IV Last administered on 03/14/19at 16:10; Admin Dose 3 ML; Start 03/07/19 at 20:00 Ondansetron HCl (Zofran Inj) 4 mg Q6H PRN IV NAUSEA/VOMITING Last administered on 03/17/19at 09:06; Admin Dose 4 MG; Start 03/07/19 at 20:00 Acetaminophen (Tylenol Tab) 650 mg Q6H PRN PO .PAIN 1-3 OR TEMP; Start 03/07/19 at 20:00 Acetaminophen/ Hydrocodone Bitart ([place] (5/325)) 1 tab Q6H PRN PO .MOD PAIN 4- 6 Last administered on 03/16/19at 18:23; Admin Dose 1 TAB; Start 03/07/19 at 20:00 Hydromorphone HCl (Dilaudid) 0.5 mg Q4H PRN IV .SEVERE PAIN 7-10 Last administered on 03/18/19at 08:06; Admin Dose 0.5 MG; Start 03/07/19 at 20:00 Docusate Sodium (Colace) 100 mg Q12H PRN PO .CONSTIPATION; Start 03/07/19 at 20:00 Bisacodyl (Dulcolax) 5 mg DAILY PRN PO .CONSTIPATION; Start 03/07/19 at 20:00 Ascorbic Acid (Vitamin C) 500 mg DAILY PO Last administered on 03/17/19 08:27; Admin Dose 500 MG; Start 03/08/19 at 09:00 Cholecalciferol (Vitamin D) 2,000 unit DAILY PO Last administered on 03/17/19 08:27; Admin Dose 2,000 UNIT; Start 03/08/19 at 09:00 Famotidine (Pepcid) 20 mg DAILY PO Last administered on 03/17/19 08:27; Admin Dose 20 MG; Start 03/08/19 at 09:00 Lactobacillus Acidophilus/ Rhamnosus (Culturelle) 1 cap BID PO Last administer ed on 03/17/19 20:36; Admin Dose 1 CAP; Start 03/08/19 at 09:00 Multivitamins/ Minerals (Theragran-M) 1 tab DAILY PO Last administered on 03/17/19 08:26; Admin Dose 1 TAB; Start 03/08/19 at 09:00 Senna (Senokot) 1 tab BID PO Last administered on 03/17/19 20:36; Admin Dose 1 TAB; Start 03/08/19 at 09:00 Zinc Sulfate (Zinc Sulfate) 220 mg DAILY PO Last administered on 03/17/19 08:27; Admin Dose 220 MG; Start 03/08/19 at 11:00 Levofloxacin (Levaquin) 750 mg DAILY@06 PO Last administered on 03/18/19 05:35; Admin Dose 750 MG; Start 03/10/19 at 06:00 Vancomycin HCl (Vanco Iv Per Pharmacy) VANCOMYCIN PER PHARMACY PER PROTOCOL XX ; Start 03/10/19 at 11:00 Vancomycin/Sodium Chloride 250 ml @ 125 mls/hr Q8H IVPB Last administered on 03/18/19 05:35; Admin Dose 125 MLS/HR; Start 03/12/19 at 21:30 Ferric Sodium Gluconate Complex 125 mg/Sodium Chloride 110 ml @ 75 mls/hr DAILY@1300 IVPB Last administered on 03/17/19 12:36; Admin Dose 110 MLS/HR; Start 03/16/19 at 13:00; Stop 03/20/19 at 14:27 CHATO MCGEE MD Mar 18, 2019 12:15
--- NOTE | 2019-03-18 12:27 | CONS ---
Assessment/Plan Assessment/Plan Hospital Course (Demo Recall) SUBJECTIVE: looks comfortable MICROBIOLOGY: Blood cultures remain negative. Right lower extremity wound culture growing Enterobacter cloaca, Corynebacterium group JK and MRSA Extremity venous study revealed no DVT. Arterial study showed 30% to 49% stenosis of right common femoral artery. Chest x-ray on admission revealed no pneumonia. ANTIMICROBIALS: Levaquin Vanco PHYSICAL EXAMINATION: GENERAL: Well-developed, well-nourished 38-year-old woman who is alert, in no distress. HEENT: Head atraumatic, normocephalic. Sclerae anicteric. Buccal mucosa pink. NECK: Supple. CHEST: Rise symmetrical. Breath sounds diminished to bases. HEART: S1, S2. ABDOMEN: Soft, bowel sounds present. EXTREMITIES: Right lower extremity Gage wrapped. ASSESSMENT: 1. Right lower extremity cellulitis with abscess, status post I&D. 2. Diabetes. 3. Diabetic neuropathy. 4. History of right lower extremity deep venous thrombosis, ischemic compartment syndrome, status post fasciotomy in 10/2018. 5. History of atrial septal defect. PLAN: The patient remains stable. Continue abx for 4 more days, pending wound closure/skin graft Consultation Date/Type/Reason Admit Date/Time Mar 07, 2019 at 22:10 Initial Consult Date Type of Consult id Date/Time of Note DATE: 03/18/19 TIME: 12:26 Exam/Review of Systems Exam Vitals Vital Signs Date Temp Pulse Resp B/P (MAP) Pulse Ox O2 O2 Flow FiO2 Time Delivery Rate 03/18/19 98.4 80 18 99/51 (67) 98 Room Air 07:28 Intake and Output 03/17/19 03/17/19 03/18/19 1515:00 23:00 07:00 IntakeIntake Total 1160 ml 1180 ml BalanceBalance 1160 ml 1180 ml Results Result Diagram: 03/17/19 0447 03/17/19 0447 Results 24hrs Laboratory Tests Test 03/17/19 12:58 03/18/19 04:39 Vancomycin Level Trough 14.2 Prothrombin Time 12.6 Prothrombin Time Ratio 1.0 INR International Normalized Ratio 0.93 Medications Medication Current Medications IV Flush (NS 3 ml) 3 ml PER PROTOCOL IV Last administered on 03/14/19at 16:10; Admin Dose 3 ML; Start 03/07/19 at 20:00 Ondansetron HCl (Zofran Inj) 4 mg Q6H PRN IV NAUSEA/VOMITING Last administered on 03/17/19 09:06; Admin Dose 4 MG; Start 03/07/19 at 20:00 Acetaminophen (Tylenol Tab) 650 mg Q6H PRN PO .PAIN 1-3 OR TEMP; Start 03/07/19 at 20:00 Acetaminophen/ Hydrocodone Bitart ([place] (5/325)) 1 tab Q6H PRN PO .MOD PAIN 4- 6 Last administered on 03/16/19 18:23; Admin Dose 1 TAB; Start 03/07/19 at 20:00 Hydromorphone HCl (Dilaudid) 0.5 mg Q4H PRN IV .SEVERE PAIN 7-10 Last adminis tered on 03/18/19 12:14; Admin Dose 0.5 MG; Start 03/07/19 at 20:00 Docusate Sodium (Colace) 100 mg Q12H PRN PO .CONSTIPATION; Start 03/07/19 at 20:00 Bisacodyl (Dulcolax) 5 mg DAILY PRN PO .CONSTIPATION; Start 03/07/19 at 20:00 Ascorbic Acid (Vitamin C) 500 mg DAILY PO Last administered on 03/17/19 08:27; Admin Dose 500 MG; Start 03/08/19 at 09:00 Cholecalciferol (Vitamin D) 2,000 unit DAILY PO Last administered on 03/17/19 08:27; Admin Dose 2,000 UNIT; Start 03/08/19 at 09:00 Famotidine (Pepcid) 20 mg DAILY PO Last administered on 03/17/19 08:27; Admin Dose 20 MG; Start 03/08/19 at 09:00 Lactobacillus Acidophilus/ Rhamnosus (Culturelle) 1 cap BID PO Last administered on 03/17/19 20:36; Admin Dose 1 CAP; Start 03/08/19 at 09:00 Multivitamins/ Minerals (Theragran-M) 1 tab DAILY PO Last administered on 03/17/19 08:26; Admin Dose 1 TAB; Start 03/08/19 at 09:00 Senna (Senokot) 1 tab BID PO Last administered on 03/17/19 20:36; Admin Dose 1 TAB; Start 03/08/19 at 09:00 Zinc Sulfate (Zinc Sulfate) 220 mg DAILY PO Last administered on 03/17/19at 08:27; Admin Dose 220 MG; Start 03/08/19 at 11:00 Levofloxacin (Levaquin) 750 mg DAILY@06 PO Last administered on 03/18/19at 05:35; Admin Dose 750 MG; Start 03/10/19 at 06:00 Vancomycin HCl (Vanco Iv Per Pharmacy) VANCOMYCIN PER PHARMACY PER PROTOCOL XX ; Start 03/10/19 at 11:00 Vancomycin/Sodium Chloride 250 ml @ 125 mls/hr Q8H IVPB Last administered on 03/18/19at 05:35; Admin Dose 125 MLS/HR; Start 03/12/19 at 21:30 Ferric Sodium Gluconate Complex 125 mg/Sodium Chloride 110 ml @ 75 mls/hr DAILY@1300 IVPB Last administered on 03/18/19at 12:14; Admin Dose 75 MLS/HR; Start 03/16/19 at 13:00; Stop 03/20/19 at 14:27 Potassium Chloride/Dextrose/ Sod Cl 1,000 ml @ 75 mls/hr [id number] IV ; Start 03/18/19 at 13:00 TIFFANIE MARTÍNEZ NP Mar 18, 2019 12:27
[2019-03-18] MEDS: D5W-0.45 NACL + KCL 10 MEQ 1,000 ML IV SCH (14:20)
--- NOTE | 2019-03-18 18:16 | PREAC ---
Date/Time of Note Date/Time of Note DATE: 03/18/19 TIME: 18:14 Anesthesia Eval and Record Evaluation Time Pre-Procedure Interview DATE: 03/18/19 TIME: 18:14 Age 38 Sex female NPO: 8 hrs Preoperative diagnosis RLE ulceration Planned procedure RLE excisional debridment and application allograft Past Medical History Past Medical History: Includes Endo: Diabetes Heme: Anemia, Other (DVT) Surgery & Anesthesia Issues No known issue Meds Anticoagulation: No Beta Alice within 24 hr: No Reason Beta Alice not given: Pt. not on B-Alice Active Scripts Tramadol HCl (Tramadol HCl) 50 Mg Tablet, 50 MG PO Q6 PRN for PAIN, #12 TAB Prov:EVE LOZADA MD 02/10/19 Tramadol HCl (Tramadol HCl) 50 Mg Tablet, 50 MG PO Q6 PRN for PAIN, #20 TAB Prov:EMMA TIAN MD 01/29/19 Famotidine* (Pepcid*) 20 Mg Tablet, 20 MG PO DAILY, #30 TAB Prov:JON,ROLO V. [employer] 01/26/19 Lactobacillus Rhamnosus GG (Culturelle) 1 Each Capsule, 1 CAP PO BID, #60 CAP Prov:JON,ROLO V. [employer] 01/26/19 Mupirocin* (Bactroban*) 2% -22 Gram Oint...g., 1 APPLIC TOP BID, #1 TUB apply to bilateral naresx5 more days Prov:JON,ROLO V[employer] 01/26/19 Cholecalciferol (Vitamin D3) (VITAMIN D-3) 2,000 Unit Capsule, 2000 UNIT PO DAILY, #30 CAP Prov:JON,ROLO V[employer] 01/26/19 Vancomycin HCl (Vancomycin HCl) 1 Gm Vial, 1 GM IV DAILY for 8 Days, VIAL Prov:JON,ROLO V. [employer] 01/26/19 Meropenem (Merrem) 1 Gm Vial, 1 GM IV Q12 for 8 Days, VIAL Prov:JON,ROLO V. [employer] 01/26/19 Rivaroxaban* (Xarelto*) 20 Mg Tablet, 20 MG PO WITH DINNER for 90 Days, TAB Prov:ONEIL VOGEL 11/24/18 Hydromorphone Hcl (Dilaudid) 2 Mg Tab, 4 MG PO Q4H PRN for MODERATE PAIN LEVEL 4-6, #30 TAB Prov:ONEIL VOGEL S. 11/24/18 Ascorbic Acid (Vitamin C) 500 Mg Tab, 500 MG PO DAILY, #30 TAB 2 Refills Prov:JAVIER VOGELP S. 11/24/18 Multivits,Ca,Minerals/Iron/FA (Thera M Plus Tablet) 1 Each Tablet, 1 TAB PO DAILY, #30 TAB 2 Refills Prov:ONEIL VOGEL S. 11/24/18 Sennosides* (Senna Lax*) 8.6 Mg Tablet, 1 TAB PO BID, #60 TAB 1 Refill Prov:ONEIL VOGEL S. 11/24/18 Current Medications IV Flush (NS 3 ml) 3 ml PER PROTOCOL IV Last administered on 03/14/19at 16:10; Admin Dose 3 ML; Start 03/07/19 at 20:00 Ondansetron HCl (Zofran Inj) 4 mg Q6H PRN IV NAUSEA/VOMITING Last administered on 03/17/19at 09:06; Admin Dose 4 MG; Start 03/07/19 at 20:00 Acetaminophen (Tylenol Tab) 650 mg Q6H PRN PO .PAIN 1-3 OR TEMP; Start 03/07/19 at 20:00 Acetaminophen/ Hydrocodone Bitart ([place] (5/325)) 1 tab Q6H PRN PO .MOD PAIN 4- 6 Last administered on 03/16/19 18:23; Admin Dose 1 TAB; Start 03/07/19 at 20:00 Hydromorphone HCl (Dilaudid) 0.5 mg Q4H PRN IV .SEVERE PAIN 7-10 Last administ ered on 03/18/19 16:20; Admin Dose 0.5 MG; Start 03/07/19 at 20:00 Docusate Sodium (Colace) 100 mg Q12H PRN PO .CONSTIPATION; Start 03/07/19 at 20:00 Bisacodyl (Dulcolax) 5 mg DAILY PRN PO .CONSTIPATION; Start 03/07/19 at 20:00 Ascorbic Acid (Vitamin C) 500 mg DAILY PO Last administered on 03/17/19 08:27; Admin Dose 500 MG; Start 03/08/19 at 09:00 Cholecalciferol (Vitamin D) 2,000 unit DAILY PO Last administered on 03/17/19 08:27; Admin Dose 2,000 UNIT; Start 03/08/19 at 09:00 Famotidine (Pepcid) 20 mg DAILY PO Last administered on 03/17/19 08:27; Admin Dose 20 MG; Start 03/08/19 at 09:00 Lactobacillus Acidophilus/ Rhamnosus (Culturelle) 1 cap BID PO Last administered on 03/17/19 20:36; Admin Dose 1 CAP; Start 03/08/19 at 09:00 Multivitamins/ Minerals (Theragran-M) 1 tab DAILY PO Last administered on 03/17/19 08:26; Admin Dose 1 TAB; Start 03/08/19 at 09:00 Senna (Senokot) 1 tab BID PO Last administered on 03/17/19 20:36; Admin Dose 1 TAB; Start 03/08/19 at 09:00 Zinc Sulfate (Zinc Sulfate) 220 mg DAILY PO Last administered on 03/17/19 08:27; Admin Dose 220 MG; Start 03/08/19 at 11:00 Levofloxacin (Levaquin) 750 mg DAILY@06 PO Last administered on 03/18/19 05:35; Admin Dose 750 MG; Start 03/10/19 at 06:00 Vancomycin HCl (Vanco Iv Per Pharmacy) VANCOMYCIN PER PHARMACY PER PROTOCOL XX ; Start 03/10/19 at 11:00 Vancomycin/Sodium Chloride 250 ml @ 125 mls/hr Q8H IVPB Last administered on 03/18/19 14:23; Admin Dose 125 MLS/HR; Start 03/12/19 at 21:30 Ferric Sodium Gluconate Complex 125 mg/Sodium Chloride 110 ml @ 75 mls/hr DAILY@1300 IVPB Last administered on 03/18/19 12:14; Admin Dose 75 MLS/HR; Start 03/16/19 at 13:00; Stop 03/20/19 at 14:27 Potassium Chloride/Dextrose/ Sod Cl 1,000 ml @ 75 mls/hr [id number] IV Last administered on 03/18/19 14:20; Admin Dose 75 MLS/HR; Start 03/18/19 at 13:00 Meds reviewed: Yes Allergies Coded Allergies: No Known Allergy (Unverified , 01/29/19) Allergies Reviewed: Yes Labs/Studies Labs Reviewed: Reviewed by anesthesiologist Result Diagram: 03/17/1944603/17/19446 test: Negative Studies: ECG (n/a), CXR (n/a) Pre-procedure Exam Last vitals Vital Signs Date Temp Pulse Resp B/P (MAP) Pulse Ox O2 O2 Flow FiO2 Time Delivery Rate 03/18/19 98.4 75 18 106/60 96 Room Air 14:02 (75) Airway: Adequate mouth opening Mallampati: Mallampati I Teeth: Normal Lung: Normal Heart: Normal ASA Physical Status ASA physical status: 2 Emergency: None Planned Anesthetic General/MAC: MAC Nerve block: Femoral (right), Sciatic (right) Planned Pain Management Single shot nerve block, Parenteral pain med Pre-operative Attestations Prior to commencing anesthesia and surgery, the patient was re-evaluated, there was verification of: *The patient's identity *The results of appropriate recent lab work and preoperative vital signs *The above evaluation not changing prior to induction *Anesthetic plan, risk benefits, alternative and complications discussed with patient/family; questions answered; patient/family understands, accepts and wis hes to proceed. KHADAR MILAN MD Mar 18, 2019 18:16
--- NOTE | 2019-03-18 19:17 | HPN ---
Date/Time of Note Date/Time of Note DATE: 03/18/19 TIME: 19:16 Interval H&P Admission Note Pt. seen H&P reviewed: No system changes SUMMER BALDERRAMA DPM Mar 18, 2019 19:16
[2019-03-18] MEDS ORDERED: BACITRACIN 50000 UNITS INJ ONE (19:19)
[2019-03-18] MEDS ORDERED: POLYMYXIN B 500000 UNIT INJ ONE (19:21)
[2019-03-18] MEDS ORDERED: BUPIVACAINE 0.5% (SDV) 30 ML INJ ONE (19:21)
[2019-03-18] MEDS ORDERED: LIDOCAINE 1% (MPF) 30 ML INJ ONE (19:21)
[2019-03-18] MEDS ORDERED: LIDOCAINE 2% (SDV) 5 ML INJ ONE ×2 (20:22→20:53)
[2019-03-18] MEDS ORDERED: MIDAZOLAM 1 MG/ML 2 ML INJ ONE (20:23)
[2019-03-18] MEDS ORDERED: ROPIVACAINE 0.2% 20 ML VIAL ONE (20:24)
[2019-03-18] MEDS ORDERED: METOCLOPRAMIDE 10 MG INJ ONE (20:53)
[2019-03-18] MEDS ORDERED: PROPOFOL 20 ML ONE (20:53)
[2019-03-18] MEDS ORDERED: ONDANSETRON 4 MG INJ ONE (20:53)
--- NOTE | 2019-03-18 21:18 | SIPON ---
Date/Time of Note Date/Time of Note DATE: 03/18/19 TIME: 21:14 Operative Report Preoperative Diagnosis Right lower extremity ulceration h/o fasciotomy with open wounds Postoperative Diagnosis same Operation/Procedure Performed right le medial wound excisional debridement skin, subcutaneous tissue 26 x 2 cm right le medial wound application of integra bilayer right le lateral ulceration delayed primary closure of complex ulceration Surgeon Chilango Payan DPM assistant to the dean Erin Armenta DPM Anesthesia: general, MAC, other Estimated blood loss: 10 - 50 ml's Transfusion Required none Specimen none Grafts/Implants none Complications none ELIA WOODS DPM Mar 18, 2019 21:18
[2019-03-18] MEDS ORDERED: FENTAnyl 50 MCG/ML VIAL IV PRN ×3 (21:30)
[2019-03-18] MEDS ORDERED: ONDANSETRON 4 MG INJ IV PRN (21:30)
[2019-03-18] MEDS ORDERED: HYDROmorphONE 1 MG/5 ML IV SYRINGE IV PRN ×3 (21:30)
[2019-03-19] VITALS (7 sets, daily range): BP systolic 95–110; BP diastolic 55–65; PULSE 65–83; RESP 16–20
--- NOTE | 2019-03-19 00:39 | OPR ---
DATE OF OPERATION: 03/18/2019 SURGEON: BELLOWS TESTER: Erin Duncan DPM PREOPERATIVE DIAGNOSES: 1. Right lower extremity ulceration. 2. History of fasciotomy ulcerations. 3. Edema. PROCEDURES PERFORMED: 1. Excisional debridement of skin, subcutaneous tissue, medial right leg ulceration 26 x 2 cm. 2. Application of Integra allograft bilayer to the medial lower leg ulceration. 3. Wound preparation with delayed primary closure of right lateral leg ulceration. PATHOLOGY: None. ANESTHESIA: Regional with general. HEMOSTASIS: Compression. ESTIMATED BLOOD LOSS: 25 mL. MATERIALS: 4-0 nylon Integra bilayer. COMPLICATIONS: None. INDICATION FOR PROCEDURE: A 38-year-old female status post debridement of fasciotomy sites, has ulce ration in medial and lateral right lower extremity at this time presents for closure. She has been r eceiving daily wound care. I discussed planned procedure. Informed consent was obtained. Operative site was marked. The patient has been on perioperative antibiotics, currently on vancomycin and Lev aquin. PROCEDURE IN DETAIL: The patient was brought into the operating room and placed in the supine positi on. Formal timeout was performed. The extremity was properly marked, confirmed by the surgical team , prepped with Betadine scrub and paint, draped in usual sterile fashion. At this time, attention wa s directed to the lateral aspect of the right lower leg. Ulceration had measured 10 x 0.5 cm. Using pickup scissors, the wound bed was prepared with subsequent advancement of the tissue and delayed pr imary closure using 3-0 nylon of complex ulceration closing skin and subcutaneous layers. Attention was directed to the medial aspect of the right foot, leg and using pickup scissors, excisional debrid ement was performed. Ulceration measured 26 x 2 cm. It was irrigated and applied the Integra bilaye r with nonabsorbable sutures. Bulky dressing was applied. The patient tolerated procedure well. Dictated By: ELIA SMALLWOOD/CAIN Conf#: [id number] DID#: [id number] CC: ALEN GONSALEZ MD; MAYRA GARCIA MD; SHYAM WELLS MD;*EndCC*
[2019-03-19] MEDS: D5W-0.45 NACL + KCL 10 MEQ 1,000 ML IV SCH (01:34)
[2019-03-19] MEDS: HYDROmorphONE 0.5 MG/0.5 ML SYG IV PRN ×5 (02:32→20:17)
[2019-03-19] MEDS: LEVOFLOXACIN 750 MG TABLET PO SCH (06:28)
[2019-03-19] MEDS: VANCOMYCIN 750 MG (PMX) 250 ML IVPB SCH ×2 (06:31→15:25)
[2019-03-19] MEDS: ZINC SULFATE 220 MG CAP PO SCH (08:49)
[2019-03-19] MEDS: FAMOTIDINE 20 MG TAB PO SCH (08:49)
[2019-03-19] MEDS: CHOLECALCIFEROL 2,000 UNIT CAP PO SCH (08:49)
[2019-03-19] MEDS: SENNA TAB PO SCH ×2 (08:49→20:17)
[2019-03-19] MEDS: LACTOBACILLUS RHAMNOSUS CAP PO SCH ×2 (08:49→20:17)
[2019-03-19] MEDS: MULTIVITAMINS/MINERALS TAB PO SCH (08:49)
[2019-03-19] MEDS: ASCORBIC ACID 500 MG TAB PO SCH (08:49)
--- NOTE | 2019-03-19 10:20 | PAC ---
Date/Time of Note Date/Time of Note DATE: 03/19/19 TIME: 10:20 Post-Anesthesia Notes Post-Anesthesia Note Last documented vital signs Vital Signs Date Temp Pulse Resp B/P (MAP) Pulse Ox O2 O2 Flow FiO2 Time Delivery Rate 03/19/19 98.0 71 18 97/58 (71) 96 07:50 03/18/19 Room Air 23:28 Activity: WNL Respiratory function: WNL Cardiovascular function: WNL Mental status: Baseline Pain reasonably controlled: Yes Hydration appropriate: Yes Nausea/Vomiting absent: No KHADAR MILAN MD Mar 19, 2019 10:20
[2019-03-19] MEDS: ONDANSETRON 4 MG INJ IV PRN ×2 (10:39→20:21)
[2019-03-19] MEDS: SOD FERRIC GLUC COMPLX 125 MG in SOD CHLORIDE 0.9% 100 ML IVPB SCH (13:09)
--- NOTE | 2019-03-19 15:01 | PN ---
Date/Time of Note Date/Time of Note DATE: 03/19/19 TIME: 14:58 Assessment/Plan VTE Prophylaxis Risk score (from Ns)>0 risk: 5 SCD applied (from Ns): No SCD contraindicated: other (no) Pharmacological prophylaxis: NA/contraindicated Pharm contraindication: surgical contra Lines/Catheters IV Catheter Type (from [facility]): Peripheral IV Urinary Cath still in place: No Assessment/Plan Assessment/Plan 1. Right lower extremity cellulitis with abscess, status post I&D on 03/09/2019, continue wound care, antibiotics, skin grafting and wound closure today 2. History of right lower extremity deep venous thrombosis, ischemic compartment syndrome, status post fasciotomy in 10/2018, need to restart anticoagulation when ok with radioisotope technician 3. Intraatrial shunt on previous Echo but PASP 23 mmHg on 09/24/2018, follow up with cardiology outpatient 4. R chest pleuritic chest pain. CXR unremarkable, may be related to atelectasis. 4. DVT prophylaxis: restart eliquis when ok with surgery Result Diagram: 03/19/19 0518 03/19/19 0518 Subjective 24 Hr Interval Summary Free Text/Dictation No acute overnight events. She continues to have R chest stabbing pleuritic pain with deep inspiration. Exam/Review of Systems Exam Vitals Vital Signs Date Temp Pulse Resp B/P (MAP) Pulse Ox O2 O2 Flow FiO2 Time Delivery Rate 03/19/19 98.2 80 20 95/56 (69) 98 13:53 03/18/19 Room Air 23:28 Intake and Output 03/18/19 03/18/19 03/19/19 1515:00 23:00 07:00 IntakeIntake Total 360 ml 1480 ml 550 ml OutputOutput Total 5 ml BalanceBalance 360 ml 1475 ml 550 ml Exam Constitutional: alert, oriented, well developed Psych: no complaints Head: normocephalic, atraumatic Eyes: nl conjunctiva, EOMI, nl lids, PERRL ENMT: nl external ears & nose, nl lips & teeth, nl nasal mucosa & septum Neck: supple, non-tender Respiratory: clear to auscultation, normal air movement; pain with deep inspiration Chest: Tender to palpation R chest, R lateral ribs especially. Cardiovascular: regular rate and rhythm, nl pulses; No bruits, No diastolic murmur, No edema, No gallop, No irregular rhythm, No jugular venous distention (JVD), No murmurs/extra sounds, No rub, No systolic murmur, No S3, No S4, No other Gastrointestinal: soft, nl liver, spleen, non-tender; No ascites, No bowel sounds, No distended, No firm, No hepatomegaly, No mass, No rebound or guarding, No splenomegaly, No surgical scars, No tender, No other Musculoskeletal: nl extremities to inspection Extremities: R leg bandaged. Results Results 24hrs Laboratory Tests Test 03/19/19 05:18 White Blood Count 8.9 Red Blood Count 3.50 L Hemoglobin 9.2 L Hematocrit 29.6 L Mean Corpuscular Volume 84.6 Mean Corpuscular Hemoglobin 26.3 L Mean Corpuscular Hemoglobin Concent 31.1 L Red Cell Distribution Width 17.2 H Platelet Count 417 H Mean Platelet Volume 10.3 Immature Granulocytes % 0.700 H Neutrophils % 65.3 Lymphocytes % 21.8 Monocytes % 7.2 Eosinophils % 3.6 Basophils % 1.4 Nucleated Red Blood Cells % 0.0 Immature Granulocytes # 0.060 H Neutrophils # 5.8 Lymphocytes # 1.9 Monocytes # 0.6 Eosinophils # 0.3 Basophils # 0.1 Nucleated Red Blood Cells # 0.0 Sodium Level 141 Potassium Level 3.8 Chloride Level 107 Carbon Dioxide Level 27 Anion Gap 7 Blood Urea Nitrogen 9 Creatinine 0.56 Est Glomerular Filtrat Rate mL/min > 60 Glucose Level 101 Calcium Level 9.0 Medications Medication Current Medications IV Flush (NS 3 ml) 3 ml PER PROTOCOL IV Last administered on 03/14/19at 16:10; Admin Dose 3 ML; Start 03/07/19 at 20:00 Ondansetron HCl (Zofran Inj) 4 mg Q6H PRN IV NAUSEA/VOMITING Last administered on 03/19/19at 10:39; Admin Dose 4 MG; Start 03/07/19 at 20:00 Acetaminophen (Tylenol Tab) 650 mg Q6H PRN PO .PAIN 1-3 OR TEMP; Start 03/07/19 at 20:00 Acetaminophen/ Hydrocodone Bitart ([place] (5/325)) 1 tab Q6H PRN PO .MOD PAIN 4- 6 Last administered on 03/16/19at 18:23; Admin Dose 1 TAB; Start 03/07/19 at 20:00 Hydromorphone HCl (Dilaudid) 0.5 mg Q4H PRN IV .SEVERE PAIN 7-10 Last administered on 03/19/19 10:43; Admin Dose 0.5 MG; Start 03/07/19 at 20:00 Docusate Sodium (Colace) 100 mg Q12H PRN PO .CONSTIPATION; Start 03/07/19 at 20:00 Bisacodyl (Dulcolax) 5 mg DAILY PRN PO .CONSTIPATION; Start 03/07/19 at 20:00 Ascorbic Acid (Vitamin C) 500 mg DAILY PO Last administered on 03/19/19 08:49; Admin Dose 500 MG; Start 03/08/19 at 09:00 Cholecalciferol (Vitamin D) 2,000 unit DAILY PO Last administered on 03/19/19 08:49; Admin Dose 2,000 UNIT; Start 03/08/19 at 09:00 Famotidine (Pepcid) 20 mg DAILY PO Last administered on 03/19/19 08:49; Admin Dose 20 MG; Start 03/08/19 at 09:00 Lactobacillus Acidophilus/ Rhamnosus (Culturelle) 1 cap BID PO Last administered on 03/19/19 08:49; Admin Dose 1 CAP; Start 03/08/19 at 09:00 Multivitamins/ Minerals (Theragran-M) 1 tab DAILY PO Last administered on 03/19/19 08:49; Admin Dose 1 TAB; Start 03/08/19 at 09:00 Senna (Senokot) 1 tab BID PO Last administered on 03/19/19 08:49; Admin Dose 1 TAB; Start 03/08/19 at 09:00 Zinc Sulfate (Zinc Sulfate) 220 mg DAILY PO Last administered on 03/19/19 08:49; Admin Dose 220 MG; Start 03/08/19 at 11:00 Levofloxacin (Levaquin) 750 mg DAILY@06 PO Last administered on 03/19/19 06:28; Admin Dose 750 MG; Start 03/10/19 at 06:00 Vancomycin HCl (Vanco Iv Per Pharmacy) VANCOMYCIN PER PHARMACY PER PROTOCOL XX ; Start 03/10/19 at 11:00 Ferric Sodium Gluconate Complex 125 mg/Sodium Chloride 110 ml @ 75 mls/hr DAILY@1300 IVPB Last administered on 03/19/19at 13:09; Admin Dose 75 MLS/HR; Start 03/16/19 at 13:00; Stop 03/20/19 at 14:27 Vancomycin/Sodium Chloride 250 ml @ 125 mls/hr Q8H IVPB Last administered on 03/19/19at 06:31; Admin Dose 125 MLS/HR; Start 03/18/19 at 23:00 JUVE SOLIMAN MD Mar 19, 2019 15:00
[2019-03-19] MEDS: HYDROCODONE/APAP (5/325) TAB PO PRN (17:01)
[2019-03-20] MEDS: HYDROCODONE/APAP (5/325) TAB PO PRN ×3 (00:03→11:59)
[2019-03-20] MEDS: VANCOMYCIN 750 MG (PMX) 250 ML IVPB SCH ×4 (00:03→23:39)
[2019-03-20] MEDS: HYDROmorphONE 0.5 MG/0.5 ML SYG IV PRN ×6 (00:22→22:08)
[2019-03-20 03:00] VITALS: BP 102/66; PULSE 72; RESP 18
[2019-03-20] MEDS: ONDANSETRON 4 MG INJ IV PRN ×3 (04:46→20:38)
[2019-03-20] MEDS: LEVOFLOXACIN 750 MG TABLET PO SCH (06:21)
[2019-03-20 07:54] VITALS: BP 89/51; PULSE 72; RESP 16
[2019-03-20] MEDS: CHOLECALCIFEROL 2,000 UNIT CAP PO SCH (08:47)
[2019-03-20] MEDS: SENNA TAB PO SCH ×2 (08:47→20:37)
[2019-03-20] MEDS: MULTIVITAMINS/MINERALS TAB PO SCH (08:47)
[2019-03-20] MEDS: FAMOTIDINE 20 MG TAB PO SCH (08:47)
[2019-03-20] MEDS: ZINC SULFATE 220 MG CAP PO SCH (08:47)
[2019-03-20] MEDS: LACTOBACILLUS RHAMNOSUS CAP PO SCH ×2 (08:47→20:37)
[2019-03-20] MEDS: ASCORBIC ACID 500 MG TAB PO SCH (08:47)
[2019-03-20 08:50] VITALS: BP 108/65
[2019-03-20] MEDS: SOD FERRIC GLUC COMPLX 125 MG in SOD CHLORIDE 0.9% 100 ML IVPB SCH (13:27)
--- NOTE | 2019-03-20 13:58 | CONS ---
Assessment/Plan Assessment/Plan Assessment/Plan (Daily) Right lower extremity surgical ulcer s/p incision and drainage and debridement (DOS: 03/09/19) Right lower extremity abscess Right lower extremity cellulitis PAD DM2 with peripheral neuropathy DM2 well controlled Plan Dressings were changed and to remain clean dry and intact. Patient would benefit from physical therapy for strengthening of the right lower extremity. Continue with abx per ID recommendations. Patient may weight bear to the right lower extremity with assistance. Patient would benefit from outpatient wound care clinic follow up. No further podiatric procedures planned at this time. Consultation Date/Type/Reason Admit Date/Time Mar 07, 2019 at 22:10 Initial Consult Date Date/Time of Note DATE: 03/20/19 TIME: 13:57 24 HR Interval Summary Free Text/Dictation No acute events overnight. Exam/Review of Systems Exam Vitals Vital Signs Date Temp Pulse Resp B/P (MAP) Pulse Ox O2 O2 Flow FiO2 Time Delivery Rate 03/20/19 108/65 08:50 (79) 03/20/19 98.0 72 16 98 07:54 03/18/19 Room Air 23:28 Intake and Output 03/19/19 03/19/19 03/20/19 1515:00 23:00 07:00 IntakeIntake Total 1840 ml 610 ml 312 ml BalanceBalance 1840 ml 610 ml 312 ml Exam Sutures intact to the anterolateral fasciotomy wound closure site Allograft secured in place with suture No dehiscence appreciated Calf soft with mild tenderness to the proximal aspect 3/5 muscle strength to ankle dorsiflexion/plantarflexion along with the digits No erythema, no purulent drainage noted, no proximal streaking. Results Result Diagram: 03/20/19 0557 03/20/19 0557 Results 24hrs Laboratory Tests Test 03/20/19 05:57 White Blood Count 7.6 Red Blood Count 3.55 L Hemoglobin 9.4 L Hematocrit 29.7 L Mean Corpuscular Volume 83.7 Mean Corpuscular Hemoglobin 26.5 L Mean Corpuscular Hemoglobin Concent 31.6 L Red Cell Distribution Width 17.2 H Platelet Count 408 Mean Platelet Volume 10.3 Immature Granulocytes % 0.800 H Neutrophils % 57.7 Lymphocytes % 25.5 Monocytes % 8.0 Eosinophils % 6.3 Basophils % 1.7 Nucleated Red Blood Cells % 0.0 Immature Granulocytes # 0.060 H Neutrophils # 4.4 Lymphocytes # 1.9 Monocytes # 0.6 Eosinophils # 0.5 Basophils # 0.1 Nucleated Red Blood Cells # 0.0 Sodium Level 140 Potassium Level 3.8 Chloride Level 105 Carbon Dioxide Level 29 Anion Gap 6 Blood Urea Nitrogen 9 Creatinine 0.65 Est Glomerular Filtrat Rate mL/min > 60 Glucose Level 96 Calcium Level 9.4 Phosphorus Level 5.3 H Magnesium Level 2.2 Medications Medication Current Medications IV Flush (NS 3 ml) 3 ml PER PROTOCOL IV Last administered on 03/14/19 16:10; Admin Dose 3 ML; Start 03/07/19 at 20:00 Ondansetron HCl (Zofran Inj) 4 mg Q6H PRN IV NAUSEA/VOMITING Last administered on 03/20/19 13:35; Admin Dose 4 MG; Start 03/07/19 at 20:00 Acetaminophen (Tylenol Tab) 650 mg Q6H PRN PO .PAIN 1-3 OR TEMP; Start 03/07/19 at 20:00 Acetaminophen/ Hydrocodone Bitart ([place] (5/325)) 1 tab Q6H PRN PO .MOD PAIN 4- 6 Last administered on 03/20/19 11:59; Admin Dose 1 TAB; Start 03/07/19 at 20:00 Hydromorphone HCl (Dilaudid) 0.5 mg Q4H PRN IV .SEVERE PAIN 7-10 Last administered on 03/20/19 13:28; Admin Dose 0.5 MG; Start 03/07/19 at 20:00 Docusate Sodium (Colace) 100 mg Q12H PRN PO .CONSTIPATION; Start 03/07/19 at 20:00 Bisacodyl (Dulcolax) 5 mg DAILY PRN PO .CONSTIPATION; Start 03/07/19 at 20:00 Ascorbic Acid (Vitamin C) 500 mg DAILY PO Last administered on 03/20/19 08:47; Admin Dose 500 MG; Start 03/08/19 at 09:00 Cholecalciferol (Vitamin D) 2,000 unit DAILY PO Last administered on 03/20/19 08:47; Admin Dose 2,000 UNIT; Start 03/08/19 at 09:00 Famotidine (Pepcid) 20 mg DAILY PO Last administered on 03/20/19 08:47; Admin Dose 20 MG; Start 03/08/19 at 09:00 Lactobacillus Acidophilus/ Rhamnosus (Culturelle) 1 cap BID PO Last administered on 03/20/19 08:47; Admin Dose 1 CAP; Start 03/08/19 at 09:00 Multivitamins/ Minerals (Theragran-M) 1 tab DAILY PO Last administered on 03/20/19 08:47; Admin Dose 1 TAB; Start 03/08/19 at 09:00 Senna (Senokot) 1 tab BID PO Last administered on 03/20/19 08:47; Admin Dose 1 TAB; Start 03/08/19 at 09:00 Zinc Sulfate (Zinc Sulfate) 220 mg DAILY PO Last administered on 03/20/19 08:47; Admin Dose 220 MG; Start 03/08/19 at 11:00 Levofloxacin (Levaquin) 750 mg DAILY@06 PO Last administered on 03/20/19 06:21; Admin Dose 750 MG; Start 03/10/19 at 06:00 Vancomycin HCl (Vanco Iv Per Pharmacy) VANCOMYCIN PER PHARMACY PER PROTOCOL XX ; Start 03/10/19 at 11:00 Ferric Sodium Gluconate Complex 125 mg/Sodium Chloride 110 ml @ 75 mls/hr DAILY@1300 IVPB Last administered on 03/20/19 13:27; Admin Dose 75 MLS/HR; Start 03/16/19 at 13:00; Stop 03/20/19 at 14:27 Vancomycin/Sodium Chloride 250 ml @ 125 mls/hr Q8H IVPB Last administered on 03/20/19 06:21; Admin Dose 125 MLS/HR; Start 03/18/19 at 23:00 SUMMER BALDERRAMA DPM Mar 20, 2019 13:58
--- NOTE | 2019-03-20 14:35 | PN ---
Date/Time of Note Date/Time of Note DATE: 03/20/19 TIME: 14:33 Assessment/Plan VTE Prophylaxis Risk score (from Ns)>0 risk: 5 SCD applied (from Ns): No SCD contraindicated: other (no) Pharmacological prophylaxis: apixaban Lines/Catheters IV Catheter Type (from [facility]): Saline Lock Urinary Cath still in place: No Assessment/Plan Assessment/Plan 1. Right lower extremity cellulitis with abscess, status post I&D on 03/09/2019, continue wound care, antibiotics, skin grafting and wound closure on 03/18. 2. History of right lower extremity deep venous thrombosis, ischemic compartment syndrome, status post fasciotomy in 10/2018, will restart Eliquis today. 3. Intraatrial shunt on previous Echo but PASP 23 mmHg on 09/24/2018, follow up with cardiology outpatient 4. R chest pleuritic chest pain. CXR unremarkable, may be related to atelectasi s. 4. DVT prophylaxis: Eliquis Result Diagram: 03/20/19 0557 03/20/19 0557 Subjective 24 Hr Interval Summary Free Text/Dictation No acute overnight events. Patient feeling well. Pain adequately controlled. Exam/Review of Systems Exam Vitals Vital Signs Date Temp Pulse Resp B/P (MAP) Pulse Ox O2 O2 Flow FiO2 Time Delivery Rate 03/20/19 108/65 08:50 (79) 03/20/19 98.0 72 16 98 07:54 03/18/19 Room Air 23:28 Intake and Output 03/19/19 03/19/19 03/20/19 1515:00 23:00 07:00 IntakeIntake Total 1840 ml 610 ml 312 ml BalanceBalance 1840 ml 610 ml 312 ml Exam Constitutional: alert, oriented, well developed Psych: no complaints Head: normocephalic, atraumatic Eyes: nl conjunctiva, EOMI, nl lids, PERRL ENMT: nl external ears & nose, nl lips & teeth, nl nasal mucosa & septum Neck: supple, non-tender Respiratory: clear to auscultation, normal air movement; pain with deep inspiration Chest: Tender to palpation R chest, R lateral ribs especially. Cardiovascular: regular rate and rhythm, nl pulses; No bruits, No diastolic murmur, No edema, No gallop, No irregular rhythm, No jugular venous distention (JVD), No murmurs/extra sounds, No rub, No systolic murmur, No S3, No S4, No other Gastrointestinal: soft, nl liver, spleen, non-tender; No ascites, No bowel sounds, No distended, No firm, No hepatomegaly, No mass, No rebound or guarding, No splenomegaly, No surgical scars, No tender, No other Musculoskeletal: nl extremities to inspection Extremities: R leg bandaged. Results Results 24hrs Laboratory Tests Test 03/20/19 05:57 White Blood Count 7.6 Red Blood Count 3.55 L Hemoglobin 9.4 L Hematocrit 29.7 L Mean Corpuscular Volume 83.7 Mean Corpuscular Hemoglobin 26.5 L Mean Corpuscular Hemoglobin Concent 31.6 L Red Cell Distribution Width 17.2 H Platelet Count 408 Mean Platelet Volume 10.3 Immature Granulocytes % 0.800 H Neutrophils % 57.7 Lymphocytes % 25.5 Monocytes % 8.0 Eosinophils % 6.3 Basophils % 1.7 Nucleated Red Blood Cells % 0.0 Immature Granulocytes # 0.060 H Neutrophils # 4.4 Lymphocytes # 1.9 Monocytes # 0.6 Eosinophils # 0.5 Basophils # 0.1 Nucleated Red Blood Cells # 0.0 Sodium Level 140 Potassium Level 3.8 Chloride Level 105 Carbon Dioxide Level 29 Anion Gap 6 Blood Urea Nitrogen 9 Creatinine 0.65 Est Glomerular Filtrat Rate mL/min > 60 Glucose Level 96 Calcium Level 9.4 Phosphorus Level 5.3 H Magnesium Level 2.2 Medications Medication Current Medications IV Flush (NS 3 ml) 3 ml PER PROTOCOL IV Last administered on 03/14/19at 16:10; Admin Dose 3 ML; Start 03/07/19 at 20:00 Ondansetron HCl (Zofran Inj) 4 mg Q6H PRN IV NAUSEA/VOMITING Last administered on 03/20/19at 13:35; Admin Dose 4 MG; Start 03/07/19 at 20:00 Acetaminophen (Tylenol Tab) 650 mg Q6H PRN PO .PAIN 1-3 OR TEMP; Start 03/07/19 at 20:00 Acetaminophen/ Hydrocodone Bitart ([place] (5/325)) 1 tab Q6H PRN PO .MOD PAIN 4-6 Last administered on 03/20/19at 11:59; Admin Dose 1 TAB; Start 03/07/19 at 20:00 Hydromorphone HCl (Dilaudid) 0.5 mg Q4H PRN IV .SEVERE PAIN 7-10 Last administered on 03/20/19 13:28; Admin Dose 0.5 MG; Start 03/07/19 at 20:00 Docusate Sodium (Colace) 100 mg Q12H PRN PO .CONSTIPATION; Start 03/07/19 at 20:00 Bisacodyl (Dulcolax) 5 mg DAILY PRN PO .CONSTIPATION; Start 03/07/19 at 20:00 Ascorbic Acid (Vitamin C) 500 mg DAILY PO Last administered on 03/20/19 08:47; Admin Dose 500 MG; Start 03/08/19 at 09:00 Cholecalciferol (Vitamin D) 2,000 unit DAILY PO Last administered on 03/20/19 08:47; Admin Dose 2,000 UNIT; Start 03/08/19 at 09:00 Famotidine (Pepcid) 20 mg DAILY PO Last administered on 03/20/19 08:47; Admin Dose 20 MG; Start 03/08/19 at 09:00 Lactobacillus Acidophilus/ Rhamnosus (Culturelle) 1 cap BID PO Last administered on 03/20/19 08:47; Admin Dose 1 CAP; Start 03/08/19 at 09:00 Multivitamins/ Minerals (Theragran-M) 1 tab DAILY PO Last administered on 03/20/19 08:47; Admin Dose 1 TAB; Start 03/08/19 at 09:00 Senna (Senokot) 1 tab BID PO Last administered on 03/20/19 08:47; Admin Dose 1 TAB; Start 03/08/19 at 09:00 Zinc Sulfate (Zinc Sulfate) 220 mg DAILY PO Last administered on 03/20/19 08:47; Admin Dose 220 MG; Start 03/08/19 at 11:00 Levofloxacin (Levaquin) 750 mg DAILY@06 PO Last administered on 03/20/19 06:21; Admin Dose 750 MG; Start 03/10/19 at 06:00 Vancomycin HCl (Vanco Iv Per Pharmacy) VANCOMYCIN PER PHARMACY PER PROTOCOL XX ; Start 03/10/19 at 11:00 Vancomycin/Sodium Chloride 250 ml @ 125 mls/hr Q8H IVPB Last administered on 8/4/19at 06:21; Admin Dose 125 MLS/HR; Start 03/18/19 at 23:00 Miscellaneous Information (*Rx Drug Level Order Reminder*) RHEAO TR 0600 ONCE XX ; Start 03/21/19 at 06:00; Stop 03/21/19 at 06:01 JUVE SOLIMAN MD Mar 20, 2019 14:35
[2019-03-20 15:16] VITALS: BP 110/54; PULSE 77; RESP 16
[2019-03-20 19:14] VITALS: BP 92/55; PULSE 85; RESP 18
[2019-03-20] MEDS: APIXABAN 5 MG TABLET PO SCH (20:37)
[2019-03-20] MEDS: HYDROCODONE/APAP (10/325) TAB PO PRN (20:37)
[2019-03-21] MEDS ORDERED: SOD CHLORIDE 0.9% 250 ML IV ONE
[2019-03-21] MEDS ORDERED: DIPHENHYDRAMINE 50 MG INJ IV ONE
--- NOTE | 2019-03-21 00:02 | HP ---
Date/Time of Note Date/Time of Note DATE: 03/21/19 TIME: 00:02 Assessment/Plan VTE Prophylaxis Risk score (from [facility])>0 risk: 5 SCD applied (from [facility] [place] [facility]): Yes Pharmacological prophylaxis: other Pharm contraindication: other Lines/Catheters IV Catheter Type (from [facility]): Saline Lock Urinary Cath still in place: No Assessment/Plan Assessment/Plan Entered by mistake. Disregard. For the h&p during this admission, see Dr. Astudillo's note from 03/07/19 . Result Diagram: 03/20/19 0557 03/20/19 0557 Results 24hrs Laboratory Tests Test 03/20/19 05:57 White Blood Count 7.6 Red Blood Count 3.55 L Hemoglobin 9.4 L Hematocrit 29.7 L Mean Corpuscular Volume 83.7 Mean Corpuscular Hemoglobin 26.5 L Mean Corpuscular Hemoglobin Concent 31.6 L Red Cell Distribution Width 17.2 H Platelet Count 408 Mean Platelet Volume 10.3 Immature Granulocytes % 0.800 H Neutrophils % 57.7 Lymphocytes % 25.5 Monocytes % 8.0 Eosinophils % 6.3 Basophils % 1.7 Nucleated Red Blood Cells % 0.0 Immature Granulocytes # 0.060 H Neutrophils # 4.4 Lymphocytes # 1.9 Monocytes # 0.6 Eosinophils # 0.5 Basophils # 0.1 Nucleated Red Blood Cells # 0.0 Sodium Level 140 Potassium Level 3.8 Chloride Level 105 Carbon Dioxide Level 29 Anion Gap 6 Blood Urea Nitrogen 9 Creatinine 0.65 Est Glomerular Filtrat Rate mL/min > 60 Glucose Level 96 Calcium Level 9.4 Phosphorus Level 5.3 H Magnesium Level 2.2 HPI/ROS Admit Date/Time Admit Date/Time Mar 07, 2019 at 22:10 Hx of Present Illness Entered by mistake. Disregard. For the h&p during this admission, see Dr. Astudillo's note from 03/07/19 . PMH/Family/Social Past Medical History Medications Current Medications IV Flush (NS 3 ml) 3 ml PER PROTOCOL IV Last administered on 03/14/19at 16:10; Admin Dose 3 ML; Start 03/07/19 at 20:00 Ondansetron HCl (Zofran Inj) 4 mg Q6H PRN IV NAUSEA/VOMITING Last administered on 03/20/19at 20:38; Admin Dose 4 MG; Start 03/07/19 at 20:00 Acetaminophen (Tylenol Tab) 650 mg Q6H PRN PO .PAIN 1-3 OR TEMP; Start 03/07/19 at 20:00 Docusate Sodium (Colace) 100 mg Q12H PRN PO .CONSTIPATION; Start 03/07/19 at 20:00 Bisacodyl (Dulcolax) 5 mg DAILY PRN PO .CONSTIPATION; Start 03/07/19 at 20:00 Ascorbic Acid (Vitamin C) 500 mg DAILY PO Last administered on 03/20/19 08:47; Admin Dose 500 MG; Start 03/08/19 at 09:00 Cholecalciferol (Vitamin D) 2,000 unit DAILY PO Last administered on 03/20/19 08:47; Admin Dose 2,000 UNIT; Start 03/08/19 at 09:00 Famotidine (Pepcid) 20 mg DAILY PO Last administered on 03/20/19 08:47; Admin Dose 20 MG; Start 03/08/19 at 09:00 Lactobacillus Acidophilus/ Rhamnosus (Culturelle) 1 cap BID PO Last administered on 03/20/19 20:37; Admin Dose 1 CAP; Start 03/08/19 at 09:00 Multivitamins/ Minerals (Theragran-M) 1 tab DAILY PO Last administered on 03/20/19 08:47; Admin Dose 1 TAB; Start 03/08/19 at 09:00 Senna (Senokot) 1 tab BID PO Last administered on 03/20/19 20:37; Admin Dose 1 TAB; Start 03/08/19 at 09:00 Zinc Sulfate (Zinc Sulfate) 220 mg DAILY PO Last administered on 03/20/19 08:47; Admin Dose 220 MG; Start 03/08/19 at 11:00 Levofloxacin (Levaquin) 750 mg DAILY@06 PO Last administered on 03/20/19 06:21; Admin Dose 750 MG; Start 03/10/19 at 06:00 Vancomycin HCl (Vanco Iv Per Pharmacy) VANCOMYCIN PER PHARMACY PER PROTOCOL XX ; Start 03/10/19 at 11:00 Vancomycin/Sodium Chloride 250 ml @ 125 mls/hr Q8H IVPB Last administered on 03/20/19 23:39; Admin Dose 125 MLS/HR; Start 03/18/19 at 23:00 Miscellaneous Information (*Rx Drug Level Order Reminder*) JUAN TR 0600 ONCE XX ; Start 03/21/19 at 06:00; Stop 03/21/19 at 06:01 Apixaban (Eliquis) 5 mg BID PO Last administered on 03/20/19at 20:37; Admin Dose 5 MG; Start 03/20/19 at 21:00 Hydromorphone HCl (Dilaudid) 1 mg Q4H PRN IV .SEVERE PAIN 7-10 Last administered on 03/20/19at 22:08; Admin Dose 1 MG; Start 03/20/19 at 16:00 Acetaminophen/ Hydrocodone Bitart ([place] (10/325)) 1 tab Q4H PRN PO MODERATE PAIN LEVEL 4-6 Last administered on 03/20/19at 20:37; Admin Dose 1 TAB; Start 03/20/19 at 15:00 Diphenhydramine HCl (Benadryl) 25 mg Q6H PRN PO ITCHING; Start 03/21/19 at 00:00 Sodium Chloride 250 ml @ 250 mls/hr Q1H ONCE IV ; Start 03/21/19 at 00:00; Stop 03/21/19 at 00:59 Coded Allergies: No Known Allergy (Unverified , 01/29/19) Family History Significant Family History: no pertinent family hx Social History Alcohol Use: none Smoking Status: Never smoker Drug Use: none Exam/Review of Systems Vital Signs Vitals Vital Signs Date Temp Pulse Resp B/P (MAP) Pulse Ox O2 O2 Flow FiO2 Time Delivery Rate 03/20/19 98.2 85 18 92/55 (67) 96 19:14 03/18/19 Room Air 23:28 Intake and Output 03/20/19 03/20/19 03/21/19 1515:00 23:00 07:00 IntakeIntake Total 1298 ml 460 ml BalanceBalance 1298 ml 460 ml KULWANT CHILEL MD Mar 21, 2019 00:02
[2019-03-21 01:30] VITALS: BP 98/58; PULSE 71; RESP 18
[2019-03-21] MEDS: HYDROCODONE/APAP (10/325) TAB PO PRN ×5 (02:07→21:42)
[2019-03-21] MEDS: HYDROmorphONE 0.5 MG/0.5 ML SYG IV PRN ×6 (02:07→22:49)
[2019-03-21] MEDS: VANCOMYCIN 750 MG (PMX) 250 ML IVPB SCH ×2 (06:09→17:35)
[2019-03-21] MEDS: LEVOFLOXACIN 750 MG TABLET PO SCH (06:14)
[2019-03-21] MEDS: ONDANSETRON 4 MG INJ IV PRN ×2 (06:14→22:44)
[2019-03-21] MEDS: DIPHENHYDRAMINE 25 MG CAP PO PRN ×2 (06:14→21:41)
[2019-03-21 07:24] VITALS: BP 93/51; PULSE 68; RESP 17
[2019-03-21] MEDS: SENNA TAB PO SCH ×2 (08:46→21:42)
[2019-03-21] MEDS: LACTOBACILLUS RHAMNOSUS CAP PO SCH ×2 (08:46→21:41)
[2019-03-21] MEDS: APIXABAN 5 MG TABLET PO SCH ×2 (08:46→21:42)
[2019-03-21] MEDS: ASCORBIC ACID 500 MG TAB PO SCH (08:46)
[2019-03-21] MEDS: FAMOTIDINE 20 MG TAB PO SCH (08:46)
[2019-03-21] MEDS: CHOLECALCIFEROL 2,000 UNIT CAP PO SCH (08:46)
[2019-03-21] MEDS: MULTIVITAMINS/MINERALS TAB PO SCH (08:46)
[2019-03-21] MEDS: ZINC SULFATE 220 MG CAP PO SCH (08:46)
[2019-03-21 13:57] VITALS: BP 96/59; PULSE 76; RESP 16
--- NOTE | 2019-03-21 14:51 | CONS ---
Assessment/Plan Assessment/Plan Hospital Course (Demo Recall) SUBJECTIVE: Alert, c/o pain, nad, no fevers MICROBIOLOGY: Blood cultures remain negative. Right lower extremity wound culture growing Enterobacter cloaca, Corynebacterium group JK and MRSA Extremity venous study revealed no DVT. Arterial study showed 30% to 49% stenosis of right common femoral artery. Chest x-ray on admission revealed no pneumonia. ANTIMICROBIALS: Levaquin Vanco PHYSICAL EXAMINATION: GENERAL: Well-developed, well-nourished 38-year-old woman who is alert, in no distress. HEENT: Head atraumatic, normocephalic. Sclerae anicteric. Buccal mucosa pink. NECK: Supple. CHEST: Rise symmetrical. Breath sounds diminished to bases. HEART: S1, S2. ABDOMEN: Soft, bowel sounds present. EXTREMITIES: Right lower extremity Gage wrapped. ASSESSMENT: 1. Right lower extremity cellulitis with abscess, status post I&D. 2. Diabetes. 3. Diabetic neuropathy. 4. History of right lower extremity deep venous thrombosis, ischemic compartment syndrome, status post fasciotomy in 10/2018. 5. History of atrial septal defect. PLAN: The patient remains stable. Completing abx, dc in am Consultation Date/Type/Reason Admit Date/Time Mar 07, 2019 at 22:10 Initial Consult Date Type of Consult id Date/Time of Note DATE: 03/21/19 TIME: 14:50 Exam/Review of Systems Exam Vitals Vital Signs Date Temp Pulse Resp B/P (MAP) Pulse Ox O2 O2 Flow FiO2 Time Delivery Rate 03/21/19 98.1 76 16 96/59 (71) 97 Room Air 13:57 Intake and Output 03/20/19 03/20/19 03/21/19 1515:00 23:00 07:00 IntakeIntake Total 1298 ml 810 ml 500 ml BalanceBalance 1298 ml 810 ml 500 ml Results Result Diagram: 03/20/19 0557 03/20/19 0557 Results 24hrs Laboratory Tests Test 03/21/19 04:48 Vancomycin Level Trough 24.3 *H Medications Medication Current Medications IV Flush (NS 3 ml) 3 ml PER PROTOCOL IV Last administered on 03/14/19at 16:10; Admin Dose 3 ML; Start 03/07/19 at 20:00 Ondansetron HCl (Zofran Inj) 4 mg Q6H PRN IV NAUSEA/VOMITING Last administered on 03/21/19 06:14; Admin Dose 4 MG; Start 03/07/19 at 20:00 Acetaminophen (Tylenol Tab) 650 mg Q6H PRN PO .PAIN 1-3 OR TEMP; Start 03/07/19 at 20:00 Docusate Sodium (Colace) 100 mg Q12H PRN PO .CONSTIPATION; Start 03/07/19 at 20:00 Bisacodyl (Dulcolax) 5 mg DAILY PRN PO .CONSTIPATION; Start 03/07/19 at 20:00 Ascorbic Acid (Vitamin C) 500 mg DAILY PO Last administered on 03/21/19 08:46; Admin Dose 500 MG; Start 03/08/19 at 09:00 Cholecalciferol (Vitamin D) 2,000 unit DAILY PO Last administered on 03/21/19 08:46; Admin Dose 2,000 UNIT; Start 03/08/19 at 09:00 Famotidine (Pepcid) 20 mg DAILY PO Last administered on 03/21/19 08:46; Admin Dose 20 MG; Start 03/08/19 at 09:00 Lactobacillus Acidophilus/ Rhamnosus (Culturelle) 1 cap BID PO Last administered on 03/21/19 08:46; Admin Dose 1 CAP; Start 03/08/19 at 09:00 Multivitamins/ Minerals (Theragran-M) 1 tab DAILY PO Last administered on 03/21/19 08:46; Admin Dose 1 TAB; Start 03/08/19 at 09:00 Senna (Senokot) 1 tab BID PO Last administered on 03/21/19 08:46; Admin Dose 1 TAB; Start 03/08/19 at 09:00 Zinc Sulfate (Zinc Sulfate) 220 mg DAILY PO Last administered on 03/21/19 08:46; Admin Dose 220 MG; Start 03/08/19 at 11:00 Levofloxacin (Levaquin) 750 mg DAILY@06 PO Last administered on 03/21/19 06:14; Admin Dose 750 MG; Start 03/10/19 at 06:00 Vancomycin HCl (Vanco Iv Per Pharmacy) VANCOMYCIN PER PHARMACY PER PROTOCOL XX ; Start 03/10/19 at 11:00 Apixaban (Eliquis) 5 mg BID PO Last administered on 03/21/19 08:46; Admin Dose 5 MG; Start 03/20/19 at 21:00 Hydromorphone HCl (Dilaudid) 1 mg Q4H PRN IV .SEVERE PAIN 7-10 Last administered on 03/21/19 14:35; Admin Dose 1 MG; Start 03/20/19 at 16:00 Acetaminophen/ Hydrocodone Bitart ([place] (10/325)) 1 tab Q4H PRN PO MODERATE PAIN LEVEL 4-6 Last administered on 03/21/19 13:30; Admin Dose 1 TAB; Start 03/20/19 at 15:00 Diphenhydramine HCl (Benadryl) 25 mg Q6H PRN PO ITCHING Last administered on 03/21/19 06:14; Admin Dose 25 MG; Start 03/21/19 at 00:00 Vancomycin/Sodium Chloride 250 ml @ 125 mls/hr Q12H IVPB ; Start 03/21/19 at 17:00 TIFFANIE MARTÍNEZ NP Mar 21, 2019 14:51
--- NOTE | 2019-03-21 15:04 | PN ---
Date/Time of Note Date/Time of Note DATE: 03/21/19 TIME: 15:00 Assessment/Plan VTE Prophylaxis Risk score (from Ns)>0 risk: 5 SCD applied (from Ns): No SCD contraindicated: other (no) Pharmacological prophylaxis: apixaban Lines/Catheters Urinary Cath still in place: No Assessment/Plan Assessment/Plan 1. Right lower extremity cellulitis with abscess, status post I&D on 03/09/2019, continue wound care, antibiotics, skin grafting and wound closure on 03/18. 2. History of right lower extremity deep venous thrombosis, ischemic compartment syndrome, status post fasciotomy in 10/2018, will restart Eliquis. 3. Intraatrial shunt on previous Echo but PASP 23 mmHg on 09/24/2018, follow up with cardiology outpatient 4. R chest pleuritic chest pain. CXR unremarkable, may be related to atelectasis. 4. DVT prophylaxis: Eliquis Dispo: Finishing antibiotics tomorrow. Pending PT evaluation for disposition (home with HH versus ARU versus SNF) Result Diagram: 03/20/19 0557 03/20/19 0557 Subjective 24 Hr Interval Summary Free Text/Dictation No acute overnight events. She continues to have throbbing R leg pain. She also is concerned because she cannot move her toes since the first surgery. Exam/Review of Systems Exam Vitals Vital Signs Date Temp Pulse Resp B/P (MAP) Pulse Ox O2 O2 Flow FiO2 Time Delivery Rate 03/21/19 98.1 76 16 96/59 (71) 97 Room Air 13:57 Intake and Output 03/20/19 03/20/19 03/21/19 1515:00 23:00 07:00 IntakeIntake Total 1298 ml 810 ml 500 ml BalanceBalance 1298 ml 810 ml 500 ml Exam Constitutional: alert, oriented, well developed Psych: no complaints Head: normocephalic, atraumatic Eyes: nl conjunctiva, EOMI, nl lids, PERRL ENMT: nl external ears & nose, nl lips & teeth, nl nasal mucosa & septum Neck: supple, non-tender Respiratory: clear to auscultation, normal air movement; pain with deep inspiration Chest: Tender to palpation R chest, R lateral ribs especially. Cardiovascular: regular rate and rhythm, nl pulses; No bruits, No diastolic murmur, No edema, No gallop, No irregular rhythm, No jugular venous distention (JVD), No murmurs/extra sounds, No rub, No systolic murmur, No S3, No S4, No other Gastrointestinal: soft, nl liver, spleen, non-tender; No ascites, No bowel sounds, No distended, No firm, No hepatomegaly, No mass, No rebound or guarding, No splenomegaly, No surgical scars, No tender, No other Musculoskeletal: nl extremities to inspection Extremities: R leg bandaged. The toes have sensation to light touch but do not move. Results Results 24hrs Laboratory Tests Test 03/21/19 04:48 Vancomycin Level Trough 24.3 *H Medications Medication Current Medications IV Flush (NS 3 ml) 3 ml PER PROTOCOL IV Last administered on 03/14/19 16:10; Admin Dose 3 ML; Start 03/07/19 at 20:00 Ondansetron HCl (Zofran Inj) 4 mg Q6H PRN IV NAUSEA/VOMITING Last administered on 03/21/19 06:14; Admin Dose 4 MG; Start 03/07/19 at 20:00 Acetaminophen (Tylenol Tab) 650 mg Q6H PRN PO .PAIN 1-3 OR TEMP; Start 03/07/19 at 20:00 Docusate Sodium (Colace) 100 mg Q12H PRN PO .CONSTIPATION; Start 03/07/19 at 20:00 Bisacodyl (Dulcolax) 5 mg DAILY PRN PO .CONSTIPATION; Start 03/07/19 at 20:00 Ascorbic Acid (Vitamin C) 500 mg DAILY PO Last administered on 03/21/19 08:46; Admin Dose 500 MG; Start 03/08/19 at 09:00 Cholecalciferol (Vitamin D) 2,000 unit DAILY PO Last administered on 03/21/19 08:46; Admin Dose 2,000 UNIT; Start 03/08/19 at 09:00 Famotidine (Pepcid) 20 mg DAILY PO Last administered on 03/21/19 08:46; Admin Dose 20 MG; Start 03/08/19 at 09:00 Lactobacillus Acidophilus/ Rhamnosus (Culturelle) 1 cap BID PO Last administered on 03/21/19 08:46; Admin Dose 1 CAP; Start 03/08/19 at 09:00 Multivitamins/ Minerals (Theragran-M) 1 tab DAILY PO Last administered on 03/21/19 08:46; Admin Dose 1 TAB; Start 03/08/19 at 09:00 Senna (Senokot) 1 tab BID PO Last administered on 03/21/19 08:46; Admin Dose 1 TAB; Start 03/08/19 at 09:00 Zinc Sulfate (Zinc Sulfate) 220 mg DAILY PO Last administered on 03/21/19 08:46; Admin Dose 220 MG; Start 03/08/19 at 11:00 Levofloxacin (Levaquin) 750 mg DAILY@06 PO Last administered on 03/21/19 06:14; Admin Dose 750 MG; Start 03/10/19 at 06:00; Stop 03/22/19 at 06:00 Vancomycin HCl (Vanco Iv Per Pharmacy) VANCOMYCIN PER PHARMACY PER PROTOCOL XX ; Start 03/10/19 at 11:00; Stop 03/22/19 at 06:00 Apixaban (Eliquis) 5 mg BID PO Last administered on 03/21/19 08:46; Admin Dose 5 MG; Start 03/20/19 at 21:00 Hydromorphone HCl (Dilaudid) 1 mg Q4H PRN IV .SEVERE PAIN 7-10 Last administered on 03/21/19 14:35; Admin Dose 1 MG; Start 03/20/19 at 16:00 Acetaminophen/ Hydrocodone Bitart ([place] (10/325)) 1 tab Q4H PRN PO MODERATE PAIN LEVEL 4-6 Last administered on 03/21/19 13:30; Admin Dose 1 TAB; Start 03/20/19 at 15:00 Diphenhydramine HCl (Benadryl) 25 mg Q6H PRN PO ITCHING Last administered on 03/21/19 06:14; Admin Dose 25 MG; Start 03/21/19 at 00:00 Vancomycin/Sodium Chloride 250 ml @ 125 mls/hr Q12H IVPB ; Start 03/21/19 at 17:00; Stop 03/22/19 at 06:00 JUVE SOLIMAN MD Mar 21, 2019 15:04
[2019-03-21 19:59] VITALS: BP 99/57; PULSE 75; RESP 16
[2019-03-22 01:17] VITALS: BP 96/53; PULSE 80; RESP 17
[2019-03-22] MEDS: HYDROCODONE/APAP (10/325) TAB PO PRN ×6 (01:47→23:11)
[2019-03-22] MEDS: HYDROmorphONE 0.5 MG/0.5 ML SYG IV PRN ×5 (03:17→20:32)
[2019-03-22] MEDS: ONDANSETRON 4 MG INJ IV PRN ×3 (05:37→23:11)
[2019-03-22] MEDS: LEVOFLOXACIN 750 MG TABLET PO SCH (05:37)
[2019-03-22] MEDS: VANCOMYCIN 750 MG (PMX) 250 ML IVPB SCH (05:37)
[2019-03-22 08:43] VITALS: BP 94/59; PULSE 75; RESP 18
[2019-03-22] MEDS: ASCORBIC ACID 500 MG TAB PO SCH (09:09)
[2019-03-22] MEDS: CHOLECALCIFEROL 2,000 UNIT CAP PO SCH (09:09)
[2019-03-22] MEDS: MULTIVITAMINS/MINERALS TAB PO SCH (09:09)
[2019-03-22] MEDS: ZINC SULFATE 220 MG CAP PO SCH (09:09)
[2019-03-22] MEDS: SENNA TAB PO SCH ×2 (09:09→20:32)
[2019-03-22] MEDS: FAMOTIDINE 20 MG TAB PO SCH (09:09)
[2019-03-22] MEDS: LACTOBACILLUS RHAMNOSUS CAP PO SCH ×2 (09:09→20:32)
[2019-03-22] MEDS: APIXABAN 5 MG TABLET PO SCH ×2 (09:10→20:32)
--- NOTE | 2019-03-22 12:39 | CONS ---
Assessment/Plan Assessment/Plan Hospital Course (Demo Recall) SUBJECTIVE: Awake, looks comfortable, no fevers MICROBIOLOGY: Blood cultures remain negative. Right lower extremity wound culture growing Enterobacter cloaca, Corynebacterium group JK and MRSA Extremity venous study revealed no DVT. Arterial study showed 30% to 49% stenosis of right common femoral artery. Chest x-ray on admission revealed no pneumonia. ANTIMICROBIALS: none PHYSICAL EXAMINATION: GENERAL: Well-developed, well-nourished 38-year-old woman who is alert, in no distress. HEENT: Head atraumatic, normocephalic. Sclerae anicteric. Buccal mucosa pink. NECK: Supple. CHEST: Rise symmetrical. Breath sounds diminished to bases. HEART: S1, S2. ABDOMEN: Soft, bowel sounds present. EXTREMITIES: Right lower extremity Gage wrapped. ASSESSMENT: 1. Right lower extremity cellulitis with abscess, status post I&D. 2. Diabetes. 3. Diabetic neuropathy. 4. History of right lower extremity deep venous thrombosis, ischemic compartment syndrome, status post fasciotomy in 10/2018. 5. History of atrial septal defect. PLAN: The patient remains stable. Completed abx, continue pain management, PT, podiatry rec-s Consultation Date/Type/Reason Admit Date/Time Mar 07, 2019 at 22:10 Initial Consult Date Type of Consult id Date/Time of Note DATE: 03/22/19 TIME: 12:38 Exam/Review of Systems Exam Vitals Vital Signs Date Temp Pulse Resp B/P (MAP) Pulse Ox O2 O2 Flow FiO2 Time Delivery Rate 03/22/19 97.8 75 18 94/59 (71) 97 08:43 03/21/19 Room Air 13:57 Intake and Output 03/21/19 03/21/19 03/22/19 1515:00 23:00 07:00 IntakeIntake Total 720 ml 608 ml BalanceBalance 720 ml 608 ml Results Result Diagram: 03/20/19 0557 03/20/19 0557 Medications Medication Current Medications IV Flush (NS 3 ml) 3 ml PER PROTOCOL IV Last administered on 03/14/19at 16:10; Admin Dose 3 ML; Start 03/07/19 at 20:00 Ondansetron HCl (Zofran Inj) 4 mg Q6H PRN IV NAUSEA/VOMITING Last administered on 03/22/19at 05:37; Admin Dose 4 MG; Start 03/07/19 at 20:00 Acetaminophen (Tylenol Tab) 650 mg Q6H PRN PO .PAIN 1-3 OR TEMP; Start 03/07/19 at 20:00 Docusate Sodium (Colace) 100 mg Q12H PRN PO .CONSTIPATION Last administered on 03/22/19 12:02; Admin Dose 100 MG; Start 03/07/19 at 20:00 Bisacodyl (Dulcolax) 5 mg DAILY PRN PO .CONSTIPATION Last administered on 03/22/19 12:02; Admin Dose 5 MG; Start 03/07/19 at 20:00 Ascorbic Acid (Vitamin C) 500 mg DAILY PO Last administered on 03/22/19 09:09; Admin Dose 500 MG; Start 03/08/19 at 09:00 Cholecalciferol (Vitamin D) 2,000 unit DAILY PO Last administered on 03/22/19 09:09; Admin Dose 2,000 UNIT; Start 03/08/19 at 09:00 Famotidine (Pepcid) 20 mg DAILY PO Last administered on 03/22/19 09:09; Admin Dose 20 MG; Start 03/08/19 at 09:00 Lactobacillus Acidophilus/ Rhamnosus (Culturelle) 1 cap BID PO Last administered on 03/22/19 09:09; Admin Dose 1 CAP; Start 03/08/19 at 09:00 Multivitamins/ Minerals (Theragran-M) 1 tab DAILY PO Last administered on 03/22/19 09:09; Admin Dose 1 TAB; Start 03/08/19 at 09:00 Senna (Senokot) 1 tab BID PO Last administered on 03/22/19 09:09; Admin Dose 1 TAB; Start 03/08/19 at 09:00 Zinc Sulfate (Zinc Sulfate) 220 mg DAILY PO Last administered on 03/22/19 09:09; Admin Dose 220 MG; Start 03/08/19 at 11:00 Apixaban (Eliquis) 5 mg BID PO Last administered on 03/22/19 09:10; Admin Dose 5 MG; Start 03/20/19 at 21:00 Hydromorphone HCl (Dilaudid) 1 mg Q4H PRN IV .SEVERE PAIN 7-10 Last administered on 03/22/19 12:02; Admin Dose 1 MG; Start 03/20/19 at 16:00 Acetaminophen/ Hydrocodone Bitart ([place] (10/325)) 1 tab Q4H PRN PO MODERATE PAIN LEVEL 4-6 Last administered on 03/22/19 09:51; Admin Dose 1 TAB; Start 03/20/19 at 15:00 Diphenhydramine HCl (Benadryl) 25 mg Q6H PRN PO ITCHING Last administered on 03/21/19at 21:41; Admin Dose 25 MG; Start 03/21/19 at 00:00 TIFFANIE MARTÍNEZ NP Mar 22, 2019 12:39
--- NOTE | 2019-03-22 14:48 | PN ---
Date/Time of Note Date/Time of Note DATE: 03/22/19 TIME: 14:46 Assessment/Plan VTE Prophylaxis Risk score (from Ns)>0 risk: 5 SCD applied (from Ns): No SCD contraindicated: other (no) Pharmacological prophylaxis: apixaban Lines/Catheters IV Catheter Type (from [facility]): Peripheral IV Urinary Cath still in place: No Assessment/Plan Assessment/Plan 1. Right lower extremity cellulitis with abscess, status post I&D on 03/09/2019, continue wound care, antibiotics, skin grafting and wound closure on 03/18. 2. History of right lower extremity deep venous thrombosis, ischemic compartment syndrome, status post fasciotomy in 10/2018, will restart Eliquis. 3. Intraatrial shunt on previous Echo but PASP 23 mmHg on 09/24/2018, follow up with cardiology outpatient 4. R chest pleuritic chest pain. CXR unremarkable, may be related to atelectasis. 4. DVT prophylaxis: Eliquis Dispo: Off antibiotics. Still with severe pain. Will consult case management for ARU evaluation. Result Diagram: 03/20/19 0557 03/20/19 0557 Subjective 24 Hr Interval Summary Free Text/Dictation No acute overnight events. Exam/Review of Systems Exam Vitals Vital Signs Date Temp Pulse Resp B/P (MAP) Pulse Ox O2 O2 Flow FiO2 Time Delivery Rate 03/22/19 97.8 75 18 94/59 (71) 97 08:43 03/21/19 Room Air 13:57 Intake and Output 03/21/19 03/21/19 03/22/19 1515:00 23:00 07:00 IntakeIntake Total 720 ml 608 ml BalanceBalance 720 ml 608 ml Exam Constitutional: alert, oriented, well developed Head: normocephalic, atraumatic Eyes: nl conjunctiva, EOMI, nl lids, PERRL ENMT: nl external ears & nose, nl lips & teeth, nl nasal mucosa & septum Neck: supple, non-tender Respiratory: clear to auscultation, normal air movement; pain with deep inspiration Cardiovascular: regular rate and rhythm, nl pulses; No bruits, No diastolic murmur, No edema, No gallop, No irregular rhythm, No jugular venous distention (JVD), No murmurs/extra sounds, No rub, No systolic murmur, No S3, No S4, No other Gastrointestinal: soft, nl liver, spleen, non-tender; No ascites, No bowel sounds, No distended, No firm, No hepatomegaly, No mass, No rebound or guarding, No splenomegaly, No surgical scars, No tender, No other Musculoskeletal: nl extremities to inspection Extremities: R leg bandaged. The toes have sensation to light touch but do not move. Medications Medication Current Medications IV Flush (NS 3 ml) 3 ml PER PROTOCOL IV Last administered on 03/14/19 16:10; Admin Dose 3 ML; Start 03/07/19 at 20:00 Ondansetron HCl (Zofran Inj) 4 mg Q6H PRN IV NAUSEA/VOMITING Last administered on 03/22/19 14:30; Admin Dose 4 MG; Start 03/07/19 at 20:00 Acetaminophen (Tylenol Tab) 650 mg Q6H PRN PO .PAIN 1-3 OR TEMP; Start 03/07/19 at 20:00 Docusate Sodium (Colace) 100 mg Q12H PRN PO .CONSTIPATION Last administered on 03/22/19 12:02; Admin Dose 100 MG; Start 03/07/19 at 20:00 Bisacodyl (Dulcolax) 5 mg DAILY PRN PO .CONSTIPATION Last administered on 9at 12:02; Admin Dose 5 MG; Start 03/07/19 at 20:00 Ascorbic Acid (Vitamin C) 500 mg DAILY PO Last administered on 03/22/19 09:09; Admin Dose 500 MG; Start 03/08/19 at 09:00 Cholecalciferol (Vitamin D) 2,000 unit DAILY PO Last administered on 03/22/19 09:09; Admin Dose 2,000 UNIT; Start 03/08/19 at 09:00 Famotidine (Pepcid) 20 mg DAILY PO Last administered on 03/22/19 09:09; Admin Dose 20 MG; Start 03/08/19 at 09:00 Lactobacillus Acidophilus/ Rhamnosus (Culturelle) 1 cap BID PO Last administ ered on 03/22/19 09:09; Admin Dose 1 CAP; Start 03/08/19 at 09:00 Multivitamins/ Minerals (Theragran-M) 1 tab DAILY PO Last administered on 03/22/19 09:09; Admin Dose 1 TAB; Start 03/08/19 at 09:00 Senna (Senokot) 1 tab BID PO Last administered on 03/22/19 09:09; Admin Dose 1 TAB; Start 03/08/19 at 09:00 Zinc Sulfate (Zinc Sulfate) 220 mg DAILY PO Last administered on 03/22/19 09:09; Admin Dose 220 MG; Start 03/08/19 at 11:00 Apixaban (Eliquis) 5 mg BID PO Last administered on 03/22/19 09:10; Admin Dose 5 MG; Start 03/20/19 at 21:00 Hydromorphone HCl (Dilaudid) 1 mg Q4H PRN IV .SEVERE PAIN 7-10 Last administered on 03/22/19 12:02; Admin Dose 1 MG; Start 03/20/19 at 16:00 Acetaminophen/ Hydrocodone Bitart ([place] (10/325)) 1 tab Q4H PRN PO MODERATE PAIN LEVEL 4-6 Last administered on 03/22/19 14:00; Admin Dose 1 TAB; Start 03/20/19 at 15:00 Diphenhydramine HCl (Benadryl) 25 mg Q6H PRN PO ITCHING Last administered on 03/21/19 21:41; Admin Dose 25 MG; Start 03/21/19 at 00:00 JUVE SOLIMAN MD Mar 22, 2019 14:48
[2019-03-22 15:50] VITALS: BP 97/54; PULSE 82; RESP 17
[2019-03-22 20:03] VITALS: BP 95/52; PULSE 81; RESP 16
[2019-03-23] MEDS: HYDROmorphONE 0.5 MG/0.5 ML SYG IV PRN ×2 (00:40→08:09)
[2019-03-23 02:09] VITALS: BP 102/55; PULSE 80; RESP 16
[2019-03-23] MEDS: HYDROCODONE/APAP (10/325) TAB PO PRN ×4 (06:51→18:56)
[2019-03-23] MEDS: ASCORBIC ACID 500 MG TAB PO SCH (08:14)
[2019-03-23] MEDS: FAMOTIDINE 20 MG TAB PO SCH (08:14)
[2019-03-23] MEDS: LACTOBACILLUS RHAMNOSUS CAP PO SCH ×2 (08:14→21:23)
[2019-03-23] MEDS: ZINC SULFATE 220 MG CAP PO SCH (08:14)
[2019-03-23] MEDS: CHOLECALCIFEROL 2,000 UNIT CAP PO SCH (08:15)
[2019-03-23] MEDS: APIXABAN 5 MG TABLET PO SCH ×2 (08:15→21:23)
[2019-03-23] MEDS: SENNA TAB PO SCH ×2 (08:15→21:22)
[2019-03-23] MEDS: MULTIVITAMINS/MINERALS TAB PO SCH (08:15)
[2019-03-23 08:39] VITALS: BP 108/66; PULSE 80; RESP 17
--- NOTE | 2019-03-23 10:09 | CONS ---
Assessment/Plan Assessment/Plan Assessment/Plan (Daily) Right lower extremity surgical ulcer s/p incision and drainage and debridement (DOS: 03/09/19) Right lower extremity chronic wound w/ Integra graft application (DOS: 03/17/19) Right lower extremity abscess Right lower extremity cellulitis PAD DM2 with peripheral neuropathy DM2 well controlled Plan Patient examined and evaluated under the direct personal supervision of Dr. Carney. All findings, assessment and plan discussed in detail amongst providers and patient. Dressings were changed consisting of Adaptic 4 x 4 ABDs and Kerlix. Dressing to remain clean dry and intact. Patient would benefit from physical therapy for strengthening of the right lower extremity. Consult is pending and physical therapy to work with patient to discuss discharge placement and plans. Continue with abx per ID recommendations. Patient may weight bear to the right lower extremity with assistance. Patient to follow-up outpatient wound care clinic under our service, call and schedule appointment 1 week after discharge. No further podiatric procedures planned at this time. Okay to be discharged from podiatric standpoint. All questions and concerns were addressed and answered patient satisfaction. Consultation Date/Type/Reason Admit Date/Time Mar 07, 2019 at 22:10 Initial Consult Date Date/Time of Note DATE: 03/23/19 TIME: 10:00 24 HR Interval Summary Free Text/Dictation Patient seen at bedside resting comfortably. She admits that she is having continued pain to the right lower extremity throughout. Is not tolerating even the light compression well, HAO bandages intact over dressings. States she is still needs to be evaluated by physical therapy to discuss possible placement versus home health. No other pedal complaints at this time. Exam/Review of Systems Exam Vitals Vital Signs Date Temp Pulse Resp B/P (MAP) Pulse Ox O2 O2 Flow FiO2 Time Delivery Rate 03/23/19 98.6 80 17 108/66 96 08:39 (80) 03/21/19 Room Air 13:57 Intake and Output 03/22/19 03/22/19 03/23/19 1515:00 23:00 07:00 IntakeIntake Total 700 ml 780 ml BalanceBalance 700 ml 780 ml Exam Sutures intact to the anterolateral fasciotomy wound closure site Allograft secured in place with suture No dehiscence appreciated Calf soft with improved but mild tenderness to the proximal aspect 3/5 muscle strength to ankle dorsiflexion/plantarflexion along with the digits No erythema, no purulent drainage noted, no proximal streaking. No signs of local infection. DP and PT pulses palpable Results Result Diagram: 03/20/1957 03/20/1957 Medications Medication Current Medications IV Flush (NS 3 ml) 3 ml PER PROTOCOL IV Last administered on 03/14/19 16:10; Admin Dose 3 ML; Start 03/07/19 at 20:00 Ondansetron HCl (Zofran Inj) 4 mg Q6H PRN IV NAUSEA/VOMITING Last administered on 03/22/19 23:11; Admin Dose 4 MG; Start 03/07/19 at 20:00 Acetaminophen (Tylenol Tab) 650 mg Q6H PRN PO .PAIN 1-3 OR TEMP; Start 03/07/19 at 20:00 Docusate Sodium (Colace) 100 mg Q12H PRN PO .CONSTIPATION Last administered on 03/22/19 12:02; Admin Dose 100 MG; Start 03/07/19 at 20:00 Bisacodyl (Dulcolax) 5 mg DAILY PRN PO .CONSTIPATION Last administered on 03/22/19 12:02; Admin Dose 5 MG; Start 03/07/19 at 20:00 Ascorbic Acid (Vitamin C) 500 mg DAILY PO Last administered on 03/23/19 08:14; Admin Dose 500 MG; Start 03/08/19 at 09:00 Cholecalciferol (Vitamin D) 2,000 unit DAILY PO Last administered on 03/23/19 08:15; Admin Dose 2,000 UNIT; Start 03/08/19 at 09:00 Famotidine (Pepcid) 20 mg DAILY PO Last administered on 03/23/19 08:14; Admin Dose 20 MG; Start 03/08/19 at 09:00 Lactobacillus Acidophilus/ Rhamnosus (Culturelle) 1 cap BID PO Last administered on 03/23/19 08:14; Admin Dose 1 CAP; Start 03/08/19 at 09:00 Multivitamins/ Minerals (Theragran-M) 1 tab DAILY PO Last administered on 03/23/19 08:15; Admin Dose 1 TAB; Start 03/08/19 at 09:00 Senna (Senokot) 1 tab BID PO Last administered on 03/23/19 08:15; Admin Dose 1 TAB; Start 03/08/19 at 09:00 Zinc Sulfate (Zinc Sulfate) 220 mg DAILY PO Last administered on 03/23/19 08:14; Admin Dose 220 MG; Start 03/08/19 at 11:00 Apixaban (Eliquis) 5 mg BID PO Last administered on 03/23/19 08:15; Admin Dose 5 MG; Start 03/20/19 at 21:00 Hydromorphone HCl (Dilaudid) 1 mg Q4H PRN IV .SEVERE PAIN 7-10 Last administered on 03/23/19 08:09; Admin Dose 1 MG; Start 03/20/19 at 16:00 Acetaminophen/ Hydrocodone Bitart ([place] (10/325)) 1 tab Q4H PRN PO MODERATE PAIN LEVEL 4-6 Last administered on 03/23/19 06:51; Admin Dose 1 TAB; Start 03/20/19 at 15:00 Diphenhydramine HCl (Benadryl) 25 mg Q6H PRN PO ITCHING Last administered on 03/21/19 21:41; Admin Dose 25 MG; Start 03/21/19 at 00:00 ZULMA LOPEZ DPM Mar 23, 2019 10:09
--- NOTE | 2019-03-23 11:33 | CONS ---
Assessment/Plan Assessment/Plan Hospital Course (Demo Recall) SUBJECTIVE: no acute changes, looks comfortable, no fevers MICROBIOLOGY: Blood cultures remain negative. Right lower extremity wound culture growing Enterobacter cloaca, Corynebacterium group JK and MRSA Extremity venous study revealed no DVT. Arterial study showed 30% to 49% stenosis of right common femoral artery. Chest x-ray on admission revealed no pneumonia. ANTIMICROBIALS: none PHYSICAL EXAMINATION: GENERAL: Well-developed, well-nourished 38-year-old woman who is alert, in no distress. HEENT: Head atraumatic, normocephalic. Sclerae anicteric. Buccal mucosa pink. NECK: Supple. CHEST: Rise symmetrical. Breath sounds diminished to bases. HEART: S1, S2. ABDOMEN: Soft, bowel sounds present. EXTREMITIES: Right lower extremity Gage wrapped. ASSESSMENT: 1. Right lower extremity cellulitis with abscess, status post I&D. 2. Diabetes. 3. Diabetic neuropathy. 4. History of right lower extremity deep venous thrombosis, ischemic compartment syndrome, status post fasciotomy in 10/2018. 5. History of atrial septal defect. PLAN: The patient remains stable. Completed abx, continue pain management, PT, podiatry rec-s Consultation Date/Type/Reason Admit Date/Time Mar 07, 2019 at 22:10 Initial Consult Date Type of Consult id Date/Time of Note DATE: 03/23/19 TIME: 11:32 Exam/Review of Systems Exam Vitals Vital Signs Date Temp Pulse Resp B/P (MAP) Pulse Ox O2 O2 Flow FiO2 Time Delivery Rate 03/23/19 98.6 80 17 108/66 96 08:39 (80) 03/21/19 Room Air 13:57 Intake and Output 03/22/19 03/22/19 03/23/19 1515:00 23:00 07:00 IntakeIntake Total 700 ml 780 ml BalanceBalance 700 ml 780 ml Results Result Diagram: 03/20/19 0557 03/20/19 0557 Medications Medication Current Medications IV Flush (NS 3 ml) 3 ml PER PROTOCOL IV Last administered on 03/14/19at 16:10; Admin Dose 3 ML; Start 03/07/19 at 20:00 Ondansetron HCl (Zofran Inj) 4 mg Q6H PRN IV NAUSEA/VOMITING Last administered on 03/22/19at 23:11; Admin Dose 4 MG; Start 03/07/19 at 20:00 Acetaminophen (Tylenol Tab) 650 mg Q6H PRN PO .PAIN 1-3 OR TEMP; Start 03/07/19 at 20:00 Docusate Sodium (Colace) 100 mg Q12H PRN PO .CONSTIPATION Last administered on 03/22/19 12:02; Admin Dose 100 MG; Start 03/07/19 at 20:00 Bisacodyl (Dulcolax) 5 mg DAILY PRN PO .CONSTIPATION Last administered on 03/22/19 12:02; Admin Dose 5 MG; Start 03/07/19 at 20:00 Ascorbic Acid (Vitamin C) 500 mg DAILY PO Last administered on 03/23/19 08:14; Admin Dose 500 MG; Start 03/08/19 at 09:00 Cholecalciferol (Vitamin D) 2,000 unit DAILY PO Last administered on 03/23/19 08:15; Admin Dose 2,000 UNIT; Start 03/08/19 at 09:00 Famotidine (Pepcid) 20 mg DAILY PO Last administered on 03/23/19 08:14; Admin Dose 20 MG; Start 03/08/19 at 09:00 Lactobacillus Acidophilus/ Rhamnosus (Culturelle) 1 cap BID PO Last administered on 03/23/19 08:14; Admin Dose 1 CAP; Start 03/08/19 at 09:00 Multivitamins/ Minerals (Theragran-M) 1 tab DAILY PO Last administered on 03/23/19 08:15; Admin Dose 1 TAB; Start 03/08/19 at 09:00 Senna (Senokot) 1 tab BID PO Last administered on 03/23/19 08:15; Admin Dose 1 TAB; Start 03/08/19 at 09:00 Zinc Sulfate (Zinc Sulfate) 220 mg DAILY PO Last administered on 03/23/19 08:14; Admin Dose 220 MG; Start 03/08/19 at 11:00 Apixaban (Eliquis) 5 mg BID PO Last administered on 03/23/19 08:15; Admin Dose 5 MG; Start 03/20/19 at 21:00 Hydromorphone HCl (Dilaudid) 1 mg Q4H PRN IV .SEVERE PAIN 7-10 Last administered on 03/23/19 08:09; Admin Dose 1 MG; Start 03/20/19 at 16:00 Acetaminophen/ Hydrocodone Bitart ([place] (10/325)) 1 tab Q4H PRN PO MODERATE PAIN LEVEL 4-6 Last administered on 03/23/19 10:50; Admin Dose 1 TAB; Start 03/20/19 at 15:00 Diphenhydramine HCl (Benadryl) 25 mg Q6H PRN PO ITCHING Last administered on 03/21/19at 21:41; Admin Dose 25 MG; Start 03/21/19 at 00:00 TIFFANIE MARTÍNEZ NP Mar 23, 2019 11:33
[2019-03-23] MEDS: HYDROmorphONE 2 MG TAB PO PRN ×3 (12:20→20:55)
[2019-03-23] MEDS: ONDANSETRON 4 MG INJ IV PRN ×2 (12:24→21:29)
[2019-03-23 14:29] VITALS: BP 100/61; PULSE 80; RESP 18
--- NOTE | 2019-03-23 15:46 | PN ---
Date/Time of Note Date/Time of Note DATE: 03/23/19 TIME: 15:44 Assessment/Plan VTE Prophylaxis Risk score (from Ns)>0 risk: 4 SCD applied (from Ns): No SCD contraindicated: other (no) Pharmacological prophylaxis: apixaban Lines/Catheters IV [facility] (from [facility] [place] Urinary Cath still in place: No Assessment/Plan Assessment/Plan 1. Right lower extremity cellulitis with abscess, status post I&D on 03/09/2019, continue wound care, antibiotics, skin grafting and wound closure on 03/18. 2. History of right lower extremity deep venous thrombosis, ischemic compartment syndrome, status post fasciotomy in 10/2018, will restart Eliquis. 3. Intraatrial shunt on previous Echo but PASP 23 mmHg on 09/24/2018, follow up with cardiology outpatient 4. R chest pleuritic chest pain. CXR unremarkable, may be related to atelectasis. 4. DVT prophylaxis: Eliquis Dispo: Off antibiotics. Still with severe pain. Off IV opioids. Waiting for ARU evaluation. Result Diagram: 03/20/19 0557 03/20/19 0557 Subjective 24 Hr Interval Summary Free Text/Dictation No acute overnight events. Patient walking well with physical therapy. Continues to have poorly controlled pain, taking [place] and IV dilaudid frequently. She says elevating the leg helps. Exam/Review of Systems Exam Vitals Vital Signs Date Temp Pulse Resp B/P (MAP) Pulse Ox O2 O2 Flow FiO2 Time Delivery Rate 03/23/19 98.6 80 18 100/61 98 14:29 (74) 03/21/19 Room Air 13:57 Intake and Output 03/22/19 03/22/19 03/23/19 1515:00 23:00 07:00 IntakeIntake Total 700 ml 780 ml BalanceBalance 700 ml 780 ml Exam Constitutional: alert, oriented, well developed Head: normocephalic, atraumatic Eyes: nl conjunctiva, EOMI, nl lids, PERRL ENMT: nl external ears & nose, nl lips & teeth, nl nasal mucosa & septum Neck: supple, non-tender Respiratory: clear to auscultation, normal air movement; pain with deep inspiration Cardiovascular: regular rate and rhythm, nl pulses; No bruits, No diastolic murmur, No edema, No gallop, No irregular rhythm, No jugular venous distention (JVD), No murmurs/extra sounds, No rub, No systolic murmur, No S3, No S4, No other Gastrointestinal: soft, nl liver, spleen, non-tender; No ascites, No bowel sounds, No distended, No firm, No hepatomegaly, No mass, No rebound or guarding, No splenomegaly, No surgical scars, No tender, No other Musculoskeletal: nl extremities to inspection Extremities: R leg bandaged. The toes have sensation to light touch but do not move. Medications Medication Current Medications IV Flush (NS 3 ml) 3 ml PER PROTOCOL IV Last administered on 03/14/19 16:10; Admin Dose 3 ML; Start 03/07/19 at 20:00 Ondansetron HCl (Zofran Inj) 4 mg Q6H PRN IV NAUSEA/VOMITING Last administered on 03/23/19 12:24; Admin Dose 4 MG; Start 03/07/19 at 20:00 Acetaminophen (Tylenol Tab) 650 mg Q6H PRN PO .PAIN 1-3 OR TEMP; Start 03/07/19 at 20:00 Docusate Sodium (Colace) 100 mg Q12H PRN PO .CONSTIPATION Last administered on 03/22/19 12:02; Admin Dose 100 MG; Start 03/07/19 at 20:00 Bisacodyl (Dulcolax) 5 mg DAILY PRN PO .CONSTIPATION Last administered on 03/22/19 12:02; Admin Dose 5 MG; Start 03/07/19 at 20:00 Ascorbic Acid (Vitamin C) 500 mg DAILY PO Last administered on 03/23/19 08:14; Admin Dose 500 MG; Start 03/08/19 at 09:00 Cholecalciferol (Vitamin D) 2,000 unit DAILY PO Last administered on 03/23/19 08:15; Admin Dose 2,000 UNIT; Start 03/08/19 at 09:00 Famotidine (Pepcid) 20 mg DAILY PO Last administered on 03/23/19 08:14; Admin Dose 20 MG; Start 03/08/19 at 09:00 Lactobacillus Acidophilus/ Rhamnosus (Culturelle) 1 cap BID PO Last administered on 03/23/19 08:14; Admin Dose 1 CAP; Start 03/08/19 at 09:00 Multivitamins/ Minerals (Theragran-M) 1 tab DAILY PO Last administered on 08:15; Admin Dose 1 TAB; Start 03/08/19 at 09:00 Senna (Senokot) 1 tab BID PO Last administered on 03/23/19 08:15; Admin Dose 1 TAB; Start 03/08/19 at 09:00 Zinc Sulfate (Zinc Sulfate) 220 mg DAILY PO Last administered on 03/23/19 08:14; Admin Dose 220 MG; Start 03/08/19 at 11:00 Apixaban (Eliquis) 5 mg BID PO Last administered on 03/23/19 08:15; Admin Dose 5 MG; Start 03/20/19 at 21:00 Acetaminophen/ Hydrocodone Bitart ([place] (10/325)) 1 tab Q4H PRN PO MODERATE PAIN LEVEL 4-6 Last administered on 03/23/19 14:54; Admin Dose 1 TAB; Start 03/20/19 at 15:00 Diphenhydramine HCl (Benadryl) 25 mg Q6H PRN PO ITCHING Last administered on 03/21/19 21:41; Admin Dose 25 MG; Start 03/21/19 at 00:00 Hydromorphone HCl (Dilaudid) 2 mg Q4H PRN PO SEVERE PAIN LEVEL 7-10 Last administered on 03/23/19 12:20; Admin Dose 2 MG; Start 03/23/19 at 12:00 JUVE SOLIMAN MD Mar 23, 2019 15:46
[2019-03-23 19:33] VITALS: BP 90/54; PULSE 82; RESP 17
[2019-03-24] MEDS: HYDROCODONE/APAP (10/325) TAB PO PRN ×3 (00:01→09:52)
[2019-03-24] MEDS: HYDROmorphONE 2 MG TAB PO PRN ×3 (01:34→10:26)
[2019-03-24 02:22] VITALS: BP 90/55; PULSE 75; RESP 16
[2019-03-24 08:10] VITALS: BP 98/57; PULSE 74; RESP 16
[2019-03-24] MEDS: ASCORBIC ACID 500 MG TAB PO SCH (08:46)
[2019-03-24] MEDS: ZINC SULFATE 220 MG CAP PO SCH (08:46)
[2019-03-24] MEDS: LACTOBACILLUS RHAMNOSUS CAP PO SCH (08:46)
[2019-03-24] MEDS: APIXABAN 5 MG TABLET PO SCH (08:46)
[2019-03-24] MEDS: CHOLECALCIFEROL 2,000 UNIT CAP PO SCH (08:46)
[2019-03-24] MEDS: SENNA TAB PO SCH (08:46)
[2019-03-24] MEDS: FAMOTIDINE 20 MG TAB PO SCH (08:46)
[2019-03-24] MEDS: MULTIVITAMINS/MINERALS TAB PO SCH (08:46)
--- NOTE | 2019-03-24 12:40 | PDOCDIS ---
Discharge Instructions DIAGNOSIS Discharge Diagnosis R leg chronic DVT with abscess. CONDITION [id number] Patient Condition: [id number] Good HOME CARE INSTRUCTIONS: [id number] Diet Instructions: [id number] Regular ACTIVITY: [id number] Activity Restrictions: [id number] No Restrictions FOLLOW UP/APPOINTMENTS Follow-up Plan 1. Take all medications as prescribed, including rivaroxaban for blood clot in the leg. 2. For pain, take [id number] ibuprofen as needed. Try to keep weight off the leg as much as possible and find positions that minimize pain. 3. For severe pain, take [place]ever[place] or Dilaudid (hydromorphone) as prescribed. You should avoid these medications unless absolutely necessary. They can cause long- term complications. Do not drink alcohol or drive after taking these medications. 4. See your primary care doctor as scheduled. 5. Return to the podiatry clinic ([facility]) on the fourth floor of this hospital in about 1 week by March 31. Until then leave the dressing on your leg and do not get it wet. 1. [place] todos los medicamentos segn lo recetado, incluido el rivaroxabn para el cogulo de moustapha en la pierna. 2. Para el dolor, tome ibuprofeno de venta jeff segn sea necesario. Trate de mantener el peso de la pierna lo ms posible y encuentre posiciones que minimicen el dolor. 3. Para el dolor intenso, tome Levering o Dilaudid (hydromorphone) segn lo prescrito. Debe evitar estos medicamentos a menos que sea absolutamente necesario. Pueden causar complicaciones a jl plazo. No tome alcohol ni maneje despus de ayana estos medicamentos. 4. Consulte a loza mdico de atencin primaria segn lo programado. 5. Regrese a la clnica de podologa ([facility]) en el [facility] en aproximadamente 1 semana antes del 15 de elizabeth. Hasta entonces, deje el vendaje en la pierna y no lo moje. JUVE SOLIMAN MD Mar 24, 2019 12:40
--- NOTE | 2019-03-24 13:12 | CONS ---
Assessment/Plan Assessment/Plan Hospital Course (Demo Recall) SUBJECTIVE: alert, feels good, no fevers MICROBIOLOGY: Blood cultures remain negative. Right lower extremity wound culture growing Enterobacter cloaca, Corynebacterium group JK and MRSA Extremity venous study revealed no DVT. Arterial study showed 30% to 49% stenosis of right common femoral artery. ANTIMICROBIALS: none PHYSICAL EXAMINATION: GENERAL: Well-developed, well-nourished 38-year-old woman who is alert, in no distress. HEENT: Head atraumatic, normocephalic. Sclerae anicteric. Buccal mucosa pink. NECK: Supple. CHEST: Rise symmetrical. Breath sounds diminished to bases. HEART: S1, S2. ABDOMEN: Soft, bowel sounds present. EXTREMITIES: Right lower extremity Gage wrapped. ASSESSMENT: 1. Right lower extremity cellulitis with abscess, status post I&D. 2. Diabetes. 3. Diabetic neuropathy. 4. History of right lower extremity deep venous thrombosis, ischemic compartment syndrome, status post fasciotomy in 10/2018. 5. History of atrial septal defect. PLAN: The patient remains stable. Completed abx, continue pain management, podiatry rec-s Consultation Date/Type/Reason Admit Date/Time Mar 07, 2019 at 22:10 Initial Consult Date Type of Consult id Date/Time of Note DATE: 03/24/19 TIME: 13:11 Exam/Review of Systems Exam Vitals Vital Signs Date Temp Pulse Resp B/P (MAP) Pulse Ox O2 O2 Flow FiO2 Time Delivery Rate 03/24/19 98.2 74 16 98/57 (71) 98 08:10 03/21/19 Room Air 13:57 Intake and Output 03/23/19 03/23/19 03/24/19 1515:00 23:00 07:00 IntakeIntake Total 540 ml 720 ml BalanceBalance 540 ml 720 ml Results Result Diagram: 03/20/19 0557 03/20/19 0557 Medications Medication Current Medications IV Flush (NS 3 ml) 3 ml PER PROTOCOL IV Last administered on 03/14/19at 16:10; Admin Dose 3 ML; Start 03/07/19 at 20:00 Ondansetron HCl (Zofran Inj) 4 mg Q6H PRN IV NAUSEA/VOMITING Last administered on 03/23/19at 21:29; Admin Dose 4 MG; Start 03/07/19 at 20:00 Acetaminophen (Tylenol Tab) 650 mg Q6H PRN PO .PAIN 1-3 OR TEMP; Start 03/07/19 at 20:00 Docusate Sodium (Colace) 100 mg Q12H PRN PO .CONSTIPATION Last administered on 03/22/19 12:02; Admin Dose 100 MG; Start 03/07/19 at 20:00 Bisacodyl (Dulcolax) 5 mg DAILY PRN PO .CONSTIPATION Last administered on 03/22/19 12:02; Admin Dose 5 MG; Start 03/07/19 at 20:00 Ascorbic Acid (Vitamin C) 500 mg DAILY PO Last administered on 03/24/19 08:46; Admin Dose 500 MG; Start 03/08/19 at 09:00 Cholecalciferol (Vitamin D) 2,000 unit DAILY PO Last administered on 03/24/19 08:46; Admin Dose 2,000 UNIT; Start 03/08/19 at 09:00 Famotidine (Pepcid) 20 mg DAILY PO Last administered on 03/24/19 08:46; Admin Dose 20 MG; Start 03/08/19 at 09:00 Lactobacillus Acidophilus/ Rhamnosus (Culturelle) 1 cap BID PO Last administered on 03/24/19 08:46; Admin Dose 1 CAP; Start 03/08/19 at 09:00 Multivitamins/ Minerals (Theragran-M) 1 tab DAILY PO Last administered on 03/24/19 08:46; Admin Dose 1 TAB; Start 03/08/19 at 09:00 Senna (Senokot) 1 tab BID PO Last administered on 03/24/19 08:46; Admin Dose 1 TAB; Start 03/08/19 at 09:00 Zinc Sulfate (Zinc Sulfate) 220 mg DAILY PO Last administered on 03/24/19 08:46; Admin Dose 220 MG; Start 03/08/19 at 11:00 Apixaban (Eliquis) 5 mg BID PO Last administered on 03/24/19 08:46; Admin Dose 5 MG; Start 03/20/19 at 21:00 Acetaminophen/ Hydrocodone Bitart ([place] (10/325)) 1 tab Q4H PRN PO MODERATE PAIN LEVEL 4-6 Last administered on 03/24/19 09:52; Admin Dose 1 TAB; Start 03/20/19 at 15:00 Diphenhydramine HCl (Benadryl) 25 mg Q6H PRN PO ITCHING Last administered on 03/21/19at 21:41; Admin Dose 25 MG; Start 03/21/19 at 00:00 Hydromorphone HCl (Dilaudid) 2 mg Q4H PRN PO SEVERE PAIN LEVEL 7-10 Last administered on 03/24/19at 10:26; Admin Dose 2 MG; Start 03/23/19 at 12:00 TIFFANIE MARTÍNEZ NP Mar 24, 2019 13:12
--- NOTE | 2019-03-24 16:25 | DS ---
Date/Time of Note Date/Time of Note DATE: 03/24/19 TIME: 16:19 Discharge Summary Admission/Discharge Info Admit Date/Time Mar 07, 2019 at 22:10 Discharge Date/Time Mar 24, 2019 at 14:25 Discharge Diagnosis R leg chronic DVT with abscess. Patient Condition: Fair Consults Dr. Zafar, infectious disease Dr. Payan, podiatry Procedures 03/09 right lower extremity excisional debridement right lower extremity Incision and drainage 03/18 PROCEDURES PERFORMED: 1. Excisional debridement of skin, subcutaneous tissue, medial right leg ulceration 26 x 2 cm. 2. Application of Integra allograft bilayer to the medial lower leg ulceration. 3. Wound preparation with delayed primary closure of right lateral leg ulceration. 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 Patient seen for postop pain in ED several times over the past several months. Has been taking tramadol for pain without much improvement in symptoms. She does report that she noticed a foul odor from her leg over the last few days and some mild discharge. She otherwise denies fevers, chills, chest pain, shortness of breath, dyspnea, nausea, vomiting, diarrhea, abdominal pain, urinary symptoms, any other concerning symptoms. She denies decreased sensation of her lower extremity or to the extremity being cold to touch. Patient has wound care at home via visiting nurse. Is to have follow-up with plastic surgery in the future for graft placement. Allergies NKDA Medications: See OCT Hospital Course The patient was admitted to telemetry. She had a CT of her leg which showed two new fluid collections concerning for abscess. She was started on appropriate antibiotics. She was taken to the OR on 03/09 for I&D. See full operative report. She returned to the OR on 03/18 for further debridement, and wound closure with allograft. She completed a course of vancomycin and meropenem in the hospital. She was restarted on her apixaban. She was able to walk with physical therapy. Her blood sugar was kept under good control. Of note, after her first surgery the patient was unable to move her toes. She does still have sensation throughout. Initially this was attributed to a nerve block but it may be permanent damage. Also, the patient has very uncontrolled pain and required almost [id number] Samaria and oral dilaudid. I cautioned her on the risks of long-term opiates but ultimately discharged her on 60 tabs of each. Great caution should be taken with refilling these; the patient has no real reason to be on chronic opiates. She was instructed to follow up with podiatry clinic in 1 week. Home Meds Active Scripts Diphenhydramine Hcl* (Benadryl*) 25 Mg Cap, 25 MG PO Q6H PRN for ITCHING, #60 CAP 1 Refill Prov:JUVE SOLIMAN MD 03/24/19 Rivaroxaban* (Xarelto*) 20 Mg Tablet, 20 MG PO WITH DINNER, #60 TAB 2 Refills Prov:JUVE SOLIMAN MD 03/24/19 Sennosides* (Senna Lax*) 8.6 Mg Tablet, 1 TAB PO BID, #60 TAB 1 Refill Prov:JUVE SOLIMAN MD 03/24/19 Famotidine* (Pepcid*) 20 Mg Tablet, 20 MG PO DAILY, #30 TAB Prov:JONFRANNIEA V. RESIDENTIAL DESIGNER 01/26/19 Lactobacillus Rhamnosus GG (Culturelle) 1 Each Capsule, 1 CAP PO BID, #60 CAP Prov:JON,ROLO V. RESIDENTIAL DESIGNER 01/26/19 Cholecalciferol (Vitamin D3) (VITAMIN D-3) 2,000 Unit Capsule, 2000 UNIT PO DAILY, #30 CAP Prov:JON,ROLO V. RESIDENTIAL DESIGNER 01/26/19 Hydromorphone Hcl (Dilaudid) 2 Mg Tab, 4 MG PO Q4H PRN for MODERATE PAIN LEVEL 4-6, #30 TAB Prov:ONEIL VOGEL S. 11/24/18 Ascorbic Acid (Vitamin C) 500 Mg Tab, 500 MG PO DAILY, #30 TAB 2 Refills Prov:RAHIJOAOONEIL S. 11/24/18 Multivits,Ca,Minerals/Iron/FA (Thera M Plus Tablet) 1 Each Tablet, 1 TAB PO DAILY, #30 TAB 2 Refills Prov:ONEIL VOGEL 11/24/18 Discontinued Scripts Tramadol HCl (Tramadol HCl) 50 Mg Tablet, 50 MG PO Q6 PRN for PAIN, #12 TAB Prov:EVE LOZADA MD 02/10/19 Tramadol HCl (Tramadol HCl) 50 Mg Tablet, 50 MG PO Q6 PRN for PAIN, #20 TAB Prov:EMMA TIAN MD 01/29/19 Mupirocin* (Bactroban*) 2% -22 Gram Oint...g., 1 APPLIC TOP BID, #1 TUB apply to bilateral naresx5 more days Prov:ROLO JON NP 01/26/19 Vancomycin HCl (Vancomycin HCl) 1 Gm Vial, 1 GM IV DAILY for 8 Days, VIAL Prov:ROLO JON NP 01/26/19 Meropenem (Merrem) 1 Gm Vial, 1 GM IV Q12 for 8 Days, VIAL Prov:ROLO JON NP 01/26/19 Follow-up Plan 1. Take all medications as prescribed, including rivaroxaban for blood clot in the leg. 2. For pain, take [id number] ibuprofen as needed. Try to keep weight off the leg as much as possible and find positions that minimize pain. 3. For severe pain, take Samaria or Dilaudid (hydromorphone) as prescribed. You should avoid these medications unless absolutely necessary. They can cause long- term complications. Do not drink alcohol or drive after taking these medicat ions. 4. See your primary care doctor as scheduled. 5. Return to the podiatry clinic ([facility]) on the fourth floor of this hospital in about 1 week by March 31. Until then leave the dressing on your leg and do not get it wet. 1. [place] todos los medicamentos segn lo recetado, incluido el rivaroxabn para el cogulo de moustapha en la pierna. 2. Para el dolor, tome ibuprofeno de venta jeff segn sea necesario. Trate de mantener el peso de la pierna lo ms posible y encuentre posiciones que minimicen el dolor. 3. Para el dolor intenso, tome Samaria o Dilaudid (hydromorphone) segn lo prescrito. Debe evitar estos medicamentos a menos que sea absolutamente necesario. Pueden causar complicaciones a jl plazo. No tome alcohol ni maneje despus de ayana estos medicamentos. 4. Consulte a loza mdico de atencin primaria segn lo programado. 5. Regrese a la clnica de podologa ([facility]) en el [facility] en aproximadamente 1 semana antes del 15 de elizabeth. Hasta entonces, deje el vendaje en la pierna y no lo moje. Primary Care Provider Care Physician No Primary Time spent on discharge: > 30 minutes JUVE SOLIMAN MD Mar 24, 2019 16:25
== END 2019-03-24 14:25 | disposition home or self-care (01) | DRG 857 ==
LOC: FTE 14:39 → PP2 19:11 → UNDOADMIN 19:11 → 6WM 22:10 → PP2 22:20 → EDBEDREQSVC 23:32 → 6WM 03-11 10:28 → 2NE 03-13 16:30
PROVIDERS: ADMIT Family Medicine; ATTEND Internal Medicine
PROC: 0KBS0ZZ Excision of Right Lower Leg Muscle, Open Approach (ICD-10-PCS; 2019-03-09)
PROC: 0KBS0ZZ Excision of Right Lower Leg Muscle, Open Approach (ICD-10-PCS; principal; 2019-03-09 18:30)
PROC: 0JQN0ZZ Repair Right Lower Leg Subcutaneous Tissue and Fascia, Open Approach (ICD-10-PCS; 2019-03-18)
PROC: 0HRKXK3 Replacement of Right Lower Leg Skin with Nonautologous Tissue Substitute, Full Thickness, External Approach (ICD-10-PCS; 2019-03-18)
DX: T81.42XA Infection following a procedure, deep incisional surgical site, initial encounter (principal); L02.415 Cutaneous abscess of right lower limb; Q21.1 Atrial septal defect; L03.115 Cellulitis of right lower limb; I82.501 Chronic embolism and thrombosis of unspecified deep veins of right lower extremity; I10 Essential (primary) hypertension; E11.42 Type 2 diabetes mellitus with diabetic polyneuropathy; R07.81 Pleurodynia; B96.89 Other specified bacterial agents as the cause of diseases classified elsewhere; B95.62 Methicillin resistant Staphylococcus aureus infection as the cause of diseases classified elsewhere
CPT/HCPCS: 36415; 71045; 73700; 80048; 80053; 80202; 81003; 82565; 83605; 83735; 84100; 84134; 84145; 84484; 84520; 84703; 85025; 85610; 85651; 85730; 86140; 87070; 87075; 87086; 87102; 87116; 93005; 93926; 93971; 96374; 96375; 97110; 97116; 97162; 97167; 97530; J0690; J1170; J1200; J1650; J2185; J2250; J2405; J2543; J2765; J2795; J2916; J3010; J3370; J3480; J7030; J7040; Q9967

== ENCOUNTER 2019-03-25 13:46 | Emergency (ER) | payer OTHER ==
[~2019-03-25] VITALS: Ht 160 cm; Wt 67.8 kg
[~2019-03-25 13:46] MED LIST changes: -MERO1VIA IV; -MUPI22OI2 TOP; -TRAM50TA2 PO; -VANC1VIA2 IV
[2019-03-25 13:49] VITALS: Ht 160 cm; Wt 67.8 kg
--- NOTE | 2019-03-25 14:35 | ERD ---
ER Documentation Chief Complaint Chief Complaint pt dc'd from admission yesterday. ap w/ vomiting. HPI This is a 38-year-old woman here for abdominal cramping nausea and vomiting shortly after using intranasal naloxone, prior to today she had been using high- dose opioid analgesics daily and did develop some constipation and after d ischarge was given a prescription for [place] but also naloxone in case of overdose. Patient thought the naloxone was prescribed solely for pain control and constipation and took a dose today and then developed nausea and abdominal cramping. She denies fevers or chills, no loss of consciousness, no chest pain or shortness of breath. ROS All systems reviewed and are negative except as per history of present illness. Medications Home Meds Active Scripts Diphenhydramine Hcl* (Benadryl*) 25 Mg Cap, 25 MG PO Q6H PRN for ITCHING, #60 CAP 1 Refill Prov:JUVE SOLIMAN MD 03/24/19 Rivaroxaban* (Xarelto*) 20 Mg Tablet, 20 MG PO WITH DINNER, #60 TAB 2 Refills Prov:JUVE SOLIMAN MD 03/24/19 Sennosides* (Senna Lax*) 8.6 Mg Tablet, 1 TAB PO BID, #60 TAB 1 Refill Prov:JUVE SOLIMAN MD 03/24/19 Famotidine* (Pepcid*) 20 Mg Tablet, 20 MG PO DAILY, #30 TAB Prov:JONFRANNIEA V. CLIENT APPLICATION SUPPORT ENGINEER 01/26/19 Reported Medications Naloxone HCl nasal spray (Narcan 4 mg/0.1 mL nasal) 4 Mg [place], 4 MG NS .Q2MIN PRN for OPIOID OVERDOSE, #2 SPRAY [place] entire contents in one nostril, may repeat in alternate nostril in 2-3 minutes if no or minimal response 03/25/19 Discontinued Scripts Lactobacillus Rhamnosus GG (Culturelle) 1 Each Capsule, 1 CAP PO BID, #60 CAP Prov:JON,ROLO V. CLIENT APPLICATION SUPPORT ENGINEER 01/26/19 Cholecalciferol (Vitamin D3) (VITAMIN D-3) 2,000 Unit Capsule, 2000 UNIT PO DAILY, #30 CAP Prov:JON,ROLO V. CLIENT APPLICATION SUPPORT ENGINEER 01/26/19 Hydromorphone Hcl (Dilaudid) 2 Mg Tab, 4 MG PO Q4H PRN for MODERATE PAIN LEVEL 4-6, #30 TAB Prov:CARTERJOAOONEIL S. 11/24/18 Ascorbic Acid (Vitamin C) 500 Mg Tab, 500 MG PO DAILY, #30 TAB 2 Refills Prov:JAVIER VOGELP S. 11/24/18 Multivits,Ca,Minerals/Iron/FA (Thera M Plus Tablet) 1 Each Tablet, 1 TAB PO DAILY, #30 TAB 2 Refills Prov:CARTERONEIL S. 11/24/18 Tramadol HCl (Tramadol HCl) 50 Mg Tablet, 50 MG PO Q6 PRN for PAIN, #12 TAB Prov:EVE LOZADA MD 02/10/19 Tramadol HCl (Tramadol HCl) 50 Mg Tablet, 50 MG PO Q6 PRN for PAIN, #20 TAB Prov:EMMA TIAN MD 01/29/19 Mupirocin* (Bactroban*) 2% -22 Gram Oint...g., 1 APPLIC TOP BID, #1 TUB apply to bilateral naresx5 more days Prov:FRANNIE JONA V. CLIENT APPLICATION SUPPORT ENGINEER 01/26/19 Vancomycin HCl (Vancomycin HCl) 1 Gm Vial, 1 GM IV DAILY for 8 Days, VIAL Prov:JON,ROLO V. CLIENT APPLICATION SUPPORT ENGINEER 01/26/19 Meropenem (Merrem) 1 Gm Vial, 1 GM IV Q12 for 8 Days, VIAL Prov:JONROLO V. 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, history of right lower extremity fasciotomy, diabetes mellitus, diabetic neuropathy History of Surgery: Yes Anesthesia Reaction: No Hx Neurological Disorder: Yes (TIA 2019) Hx Respiratory Disorders: No Hx Cardiac Disorders: No Hx Psychiatric Problems: No Hx Miscellaneous Medical Probl: Yes (DVT, arterial occlusion R LE s/p thrombectomy, s/p 3 part compartment fasci) Hx Alcohol Use: No Hx Substance Use: No Hx Tobacco Use: No FmHx Family History: No diabetes Physical Exam Vitals Vital Signs Date Temp Pulse Resp B/P (MAP) Pulse Ox O2 O2 Flow FiO2 Time Delivery Rate 03/25/19 98.0 86 16 103/64 100 Room Air 16:51 (77) 03/25/19 98.1 104 20 113/72 97 13:49 (86) Physical Exam Const: Well-developed will nourished, nauseous, afebrile Resp: Clear to auscultation bilaterally Cardio: Regular rate and rhythm, no murmurs Abd: Soft, non tender, non distended. Normal bowel sounds Skin: No petechiae or rashes, her right lower extremity was not undressed given her recent surgical intervention and infection although rest of her integument intact is intact and dry Ext: No cyanosis, or edema, distal pulses equal bilateral Neur: Awake and alert x3, no focal deficits or facial asymmetry Psych: Normal Mood and Affect Result Diagram: 03/25/19 1518 03/25/19 1518 Results 24 hrs Laboratory Tests Test 03/25/19 15:18 White Blood Count 12.4 10^3/ul Red Blood Count 4.10 10^6/ul Hemoglobin 11.2 g/dl Hematocrit 35.3 % Mean Corpuscular Volume 86.1 fl Mean Corpuscular Hemoglobin 27.3 pg Mean Corpuscular Hemoglobin Concent 31.7 g/dl Red Cell Distribution Width 17.6 % Platelet Count 422 10^3/UL Mean Platelet Volume 10.4 fl Immature Granulocytes % 0.600 % Neutrophils % 79.7 % Lymphocytes % 11.5 % Monocytes % 5.7 % Eosinophils % 1.4 % Basophils % 1.1 % Nucleated Red Blood Cells % 0.0 /100WBC Immature Granulocytes # 0.070 10^3/ul Neutrophils # 9.9 10^3/ul Lymphocytes # 1.4 10^3/ul Monocytes # 0.7 10^3/ul Eosinophils # 0.2 10^3/ul Basophils # 0.1 10^3/ul Nucleated Red Blood Cells # 0.0 10^3/ul Sodium Level 140 mmol/L Potassium Level 3.3 mmol/L Chloride Level 107 mmol/L Carbon Dioxide Level 25 mmol/L Anion Gap 8 Blood Urea Nitrogen 13 mg/dl Creatinine 0.55 mg/dl Est Glomerular Filtrat Rate mL/min > 60 mL/min Glucose Level 154 mg/dl Calcium Level 9.7 mg/dl Total Bilirubin 0.3 mg/dl Direct Bilirubin 0.00 mg/dl Indirect Bilirubin 0.3 mg/dl Aspartate Amino Transf (AST/SGOT) 73 IU/L Alanine Aminotransferase (ALT/SGPT) 54 IU/L Alkaline Phosphatase 130 IU/L Total Protein 9.2 g/dl Albumin 4.4 g/dl Globulin 4.80 g/dl Albumin/Globulin Ratio 0.91 Lipase 224 U/L Current Medications Medications Dose Sig/Morteza Start Time Status Last (Trade) Ordered Route PRN Stop Time Admin Dose Reason Admin Sodium 1,000 ml @ Q1H STAT 03/25/19 DC 03/25/19 Chloride 1,000 mls/hr IV 14:56 03/25/19 15:42 15:55 Ondansetron 4 mg ONCE STAT 03/25/19 DC 03/25/19 HCl (Zofran IV 14:56 03/25/19 15:43 Inj) 14:57 40 ml ONCE STAT 03/25/19 DC 03/25/19 Miscellaneous PO 14:56 03/25/19 15:42 Medication 14:57 (Gi Cocktail (2)) Belladonna/ 2 tab ONCE STAT 03/25/19 DC 03/25/19 Phenobarbital PO 14:56 03/25/19 15:43 () 14:57 Ketorolac 15 mg ONCE STAT 03/25/19 DC 03/25/19 Tromethamine IV 14:56 03/25/19 15:43 (Toradol) 14:57 Procedures/MDM IV line was established patient was placed on youth nutritional monitor rhythm strip revealed a sinus rhythm at about 80 bpm with upright P and T waves. Patient was afebrile I administered 1 L normal saline IV, Toradol 15 mg IV, Zofran 4 mg IV, GI bogdan ktail p.o. CBC and electrolytes are normal, liver function tests were normal Patient feels much better and vital signs are normal she is able to tolerate p.o. and had no episodes of vomiting while here. I did tell her to return in 8 to 12 hours if she has continued abdominal pain, develops a fever, or has vomiting. Repeat abdominal exam prior to discharge remains soft without guarding, rigidity, or tenderness Differential diagnoses considered, included but not limited to acute coronary syndrome, pulmonary embolism, aortic dissection, abdominal aortic aneurysm, sepsis, stroke, meningitis, encephalitis, pneumonia, appendicitis, cholecystitis, bowel obstruction, pyelonephritis, nephrolithiasis, cystitis, as well as metabolic, hematologic, and electrolyte abnormalities. As well as abscess, cellulitis, fractures, and dislocations. Patient feels much better at this time, and vital signs are normal, symptoms have improved. I did give strict instructions to return to the ED if symptoms c ontinue or worsen, patient will otherwise follow-up with primary care physician. Patient understood instructions and agreed to plan. Disclaimer: Inadvertent spelling and grammatical errors are likely due to EHR/dictation software use and do not reflect on the overall quality of patient care. Also, please note that the electronic time recorded on this note does not necessarily reflect the actual time of the patient encounter. Departure Diagnosis: Primary Impression: Abdominal pain Abdominal location: generalized Qualified Codes: R10.84 - Generalized abdominal pain Additional Impression: Opioid withdrawal Condition: TIMO Royal MD Mar 25, 2019 14:35
[2019-03-25] MEDS ORDERED: ONDANSETRON 4 MG INJ IV STA (14:56)
[2019-03-25] MEDS ORDERED: BELLADONNA/PHENOBARBITAL TAB PO STA (14:56)
[2019-03-25] MEDS ORDERED: SOD CHLORIDE 0.9% 1,000 ML IV STA (14:56)
[2019-03-25] MEDS ORDERED: LIDOCAINE/MYLANTA 40 ML BTL PO STA (14:56)
[2019-03-25] MEDS ORDERED: KETOROLAC 15 MG INJ IV STA (14:56)
[2019-03-25 16:51] VITALS: BP 103/64; PULSE 86; RESP 16
== END 2019-03-25 17:11 | disposition home or self-care (01) ==
LOC: E/R 13:46
DX: F11.20 Opioid dependence, uncomplicated (principal); E11.9 Type 2 diabetes mellitus without complications; Z86.73 Personal history of transient ischemic attack (TIA), and cerebral infarction without residual deficits
CPT/HCPCS: 80053; 83690; 85025; 96361; 96374; 96375; J1885; J2405; J7030; Z7502; Z7610